=== PATIENT | male | born 1970 | race Caucasian/White ===

== ENCOUNTER 2017-08-07 11:13 | Inpatient (IN) | payer SELFPAY ==
[2017-08-07] VITALS (10 sets, daily range): BP systolic 121–167; BP diastolic 73–108; PULSE 103–127; RESP 14–21; TEMP 36.2–36.8; O2SAT 90–98; BMI 53.8
--- NOTE | 2017-08-07 11:49 | EKG12_ITS ---
Test Reason : SOB Blood Pressure : / mmHG Vent. Rate : 119 BPM Atrial Rate : 119 BPM P-R Int : 168 ms QRS Dur : 076 ms QT Int : 326 ms P-R-T Axes : 049 008 021 degrees QTc Int : 458 ms Sinus tachycardia Otherwise normal ECG Confirmed by LUCIA NGUYEN, CANDI ([id number]), greeting card editor MANAV CARMEN ([id number]) on 08/09/2017 2:00:22 PM Referred By: USMAN Confirmed By:CANDI MYERS MD
--- NOTE | 2017-08-07 11:50 | CT_ITS ---
STUDY: CT ABDOMEN AND PELVIS WITHOUT CONTRAST REASON FOR EXAM: Male, 46 years old. 2 week history of hematuria and blood clots. RADIATION DOSAGE (If Supplied By Facility): CTDIvol = ( 34.45 ) mGy, DLP = ( 1997.10 ) mGycm TECHNIQUE: Transaxial images were obtained from the dome of the diaphragm to the symphysis pubis without oral contrast, and without intravenous contrast. Sagittal and coronal images were reconstructed. Individualized dose optimization techniques were used for this CT. COMPARISON: None. FINDINGS: The visualized lung bases are unremarkable. The visualized portions of the heart are within normal limits. There is decreased attenuation of the liver consistent with steatosis. Normal gallbladder and extrahepatic biliary system. Normal spleen. Normal pancreas. Normal bilateral adrenal glands. Normal right kidney. Normal left kidney. There is a small hiatal hernia. Normal small intestine. There are scattered colonic diverticula consistent with diverticulosis. The appendix is visualized and appears normal. There is scattered atherosclerotic calcification of the abdominal aorta, without a demonstrated aneurysm. Normal inferior vena cava. Normal retroperitoneum. Normal urinary bladder. Normal abdominal wall. There are degenerative changes of the visualized lumbar spine. Status post right total hip preplacement. CT/Abdomen/Pelvis without Cont IMPRESSION: Fatty infiltration of the liver. Scattered sigmoid diverticula. Electronically Signed: Eliazar Funes MD at 12:50 EST Tel [phone], Service support ,
[2017-08-07 12:00] LABS: Bacteria 0 SEEN /hpf (None Seen); Mucous, Urine 0 SEEN /hpf (<or=2+)
[2017-08-07] MEDS: Ipratropium/Albuterol Sulfate 3 ML AMPUL.NEB INHALATION (12:03)
[2017-08-07 12:08] LABS: Color, Urine Red (Yellow); Glucose, Dipstick Normal (Normal); Ketone-Dipstick Negative (Negative); Leukocyte Esterase-Dipstick 500 /ul (Negative); Nitrite-Dipstick Negative (Negative); Occult Blood-Urine 250 /ul (Negative); Protein-Dipstick 100 mg/dl (Negative); Urine Bilirubin Dipstick Negative (Negative); Urine Clarity Sl. Cloudy (Clear); Urine Urobilinogen Normal (Normal); Urine pH 6.5 (5.0 - 8.0)
[2017-08-07 12:19] LABS: Absolute Lymphocyte Count 2.86 X10^3/ul (0.83-4.51); Absolute Neutrophil Count 6.2 X10^3/uL (2.0-7.7); Basophil# 0.04 X10^3/uL; Basophil% 0.4 % (0-1); Eosinophil# 0.08 X10^3/uL; Eosinophils% 0.8 % (0-5); Hematocrit 44.2 % (40-54); Hemoglobin 15.1 g/dl (13.0-16.5); Lymphocyte # 2.86 X10^3/ul (4.0); Lymphocyte % 28.5 % (19-41); Mean Corp Hgb Conc 34.2 g/gl (32-36); Mean Corpuscular Hgb 31.9 pg (27.0-32.0); Mean Corpuscular Volume 93.4 fL (80-94); Mean Platelet Vol. 9.4 fl (6.2-12.0); Monocyte# 0.83 X10^3/uL; Monocyte% 8.3 % (0-10); Neutrophil # 6.18 X10^3/uL (2.7-7.7); Neutrophil % 61.7 % (47-70); Platelet Count 292 K/mm3 (150-450); RBC Distribution Width CV 13.4 % (11.6-14.6); RBC Distribution Width SD 45.8 fl (35.1-43.9); Red Blood Count 4.73 M/mm3 (4.6-6.2)
[2017-08-07 12:21] LABS: Bedside Glucose 234 mg/dL (70-110)
[2017-08-07 12:22] LABS: Red Blood Cells-Urine 25-50 SEEN /hpf (0-5); Squamous Epithelial Cells - UA 0-5 SEEN /hpf (0-5); White Blood Cells 50-100 SEEN /hpf (0-5)
[2017-08-07 12:25] LABS: International Normalized Ratio 1.4; Prothrombin Time (Protime)PT. 16.6 SECONDS (11.7-14.9)
[2017-08-07 12:28] LABS: Partial Thromboplast Time 34.6 Seconds (24.1-36.2)
--- NOTE | 2017-08-07 12:28 | RAD_ITS ---
STUDY: X-RAY CHEST REASON FOR EXAM: Male, 46 years old. Dyspnea and shortness of breath. TECHNIQUE: PA and lateral views of the chest. COMPARISON: Comparison is made with prior examination dated January 30, 2016. FINDINGS: EKG electrodes are seen. Minimal increased markings are seen in the right middle lobe suggestive of a right middle lobe atelectasis. There is no demonstrated pleural abnormality. Normal size heart. Normal mediastinum and natalia. Normal visualized pulmonary arteries. Normal visualized aortic arch and descending thoracic aorta. Normal visualized thoracic spine. Normal visualized ribs, clavicles, and shoulders. There is no demonstrated abnormality of the visualized soft tissue structures of the upper abdomen. RAD/Chest PA and Lateral IMPRESSION: Minimal increased markings in the right middle lobe. This is suggestive of mild atelectasis. Electronically Signed: Eliazar Funes MD at 12:51 EST Tel [phone], Service support ,
[2017-08-07 12:31] LABS: POSITIVE COUNT NO; POSITIVE DIFFERENTIAL NO; POSITIVE MORPHOLOGY NO
[2017-08-07 12:35] LABS: AST(SGOT) 105 U/L (15-37); Alanine Aminotransfer ALT/SGPT 74 U/L (16-61); Alkaline Phosphatase 93 U/L (45-117); Anion Gap 10 (5-15); BUN 12 mg/dL (7-18); BUN/Creat Ratio 11.2 RATIO (10-20); Bilirubin, Direct 0.15 mg/dL (0.00-0.30); Calcium,Total 8.4 mg/dL (8.5-10.1); Chloride 104 mmol/L (98-107); Creatinine, Serum 1.07 mg/dL (0.70-1.30); EST Glomerular Filtration Rate 79 mL/min (>60); Est Glom Filt Rate - Afr Amer 95 mL/min (>60); Globulin 5.1 g/dL (2.2-4.2); Glucose 220 mg/dL (74-106); Potassium 3.5 mmol/L (3.5-5.1); Protein, Total 8.1 g/dL (6.4-8.2); Sodium Level 137 mmol/L (136-145)
[2017-08-07 12:49] LABS: Hemoglobin A1c 8.4 % (4.2-6.3)
[2017-08-07 12:58] LABS: BNP,B-Type NATRIURETIC PEPTIDE 8.1 pg/mL (0-100)
--- NOTE | 2017-08-07 13:34 | ED.DCSUM_ITS ---
- ER Visit Summary Date of Service: 08/07/17 Chief Complaint: Hematuria and shortness of breath History of Present Illness: The patient is a [address] Barkley in [place] and Dr. Astorga. He reports that he is on Xarelto for PE. States that approximately 2 weeks ago he began having hematuria and passing clots. Reports that he is emptying his bladder well most of the time. He feels as though his bladder is emptying well today. Patient reports is been short of breath for approximately 2 months. Is been gradually increasing. He has been wheezing. He does not use an inhaler. States is worse when he exerts himself. He states that he is short of breath at night until he puts his CPAP on. States that he has had a cough productive yellow sputum for months. There is been no blood in his sputum. He had subjective fever. No chills. He has had sweats. He complains of chest pain with coughing only. He denies any exertional chest pain. Patient complains of subjective fever. A mild sore throat. He has bilateral ankle swelling that he reports is chronic and actually slightly improved from usual. States that he has not been diagnosed with diabetes, but his blood sugars been 221-371 is checked at 5 times over the past 4 days. Physical Examination: Vitals: 98.2, 124/82, 123, 20, 90% on room air which is hypoxic. General: Well-nourished and well-developed. Head: Normocephalic atraumatic. Neck: Supple, no lymphadenopathy. No JVD. Nontender. Cardiovascular: Tachycardic regular rhythm with a 2 out of 6 systolic murmur. Respiratory: No respiratory distress. Mild wheezing bilaterally with greatly decreased air movement. Abdominal: Soft, nontender, nondistended, normal bowel sounds. No guarding, rebound, or peritoneal signs. Back: Nontender. Extremities: Nontender, 2+ pitting edema of his lower extremities bilaterally. This is symmetric. Skin: Normal color, no rash. Neurologic: Alert and oriented ?3. Cranial nerves II through XII are intact. Normal strength and sensation. Psych: Normal affect. Test Results: Chest x-ray shows atelectasis and no infiltrate. CT flank shows normal kidneys, normal bladder, normal appendix. EKG is sinus tach at [address] changes. CBC is normal. Chem-7 is more for glucose of 220 and calcium of 8.4. LFTs marked for an albumin 3.0, globulin 5.1, ALT of 74, AST of 105. INR is 1.4. PTT is 34.6. UA is remarkable for 50-100 white blood cells and 25-50 red blood cells. This was sent for culture. Troponin is negative. PT SALES OPERATIONS ANALYST is 8.1. Hemoglobin A1c is 8.4. Emergency Department Course and Treatment: Patient was treated with albuterol Atrovent aerosols. He does feel improved. He would like to go home. He is ambulated in the [place] and his pulse ox drops to 83%. I offered to get him oxygen for at home and he states that he does not want this. He is given Levaquin p.o. He refused steroids. Did have a prolonged discussion with him about the fact that his blood sugar has been approximately 180 on average over the course the past 3 months and he certainly does have diabetes mellitus. Treatment Plan: Patient was discussed with Dr. wells. He will be admitted to the hospital for further evaluation and treatment. Disposition: Admitted in improved condition. Impression: 1. COPD exacerbation. 2. Hypoxia. 3. UTI. 4. Hematuria. 5. Coagulopathy on Xarelto. 6. Type 2 diabetes mellitus, new diagnosis. This note was generated with [employer] dictation software. It may contain incorrect words, spelling, and punctuation that were not noted in review of the chart prior to signing ED Disposition - Plan for ED Patient: Disposition: Acute Care Hospital [facility] Chief Complaint: Shortness of Breath
[2017-08-07] MEDS: levoFLOXacin 750 MG Tablet PO (13:46)
[2017-08-07] MEDS: Albuterol 2.5 MG/3 ML VIAL.NEB. INHALATION (14:11)
--- NOTE | 2017-08-07 14:22 | HP.PCM_ITS ---
Problem List (1) DVT (deep venous thrombosis) Status: Chronic Comment: RLE (2) Dyspnea Status: Chronic (3) Premature ventricular contraction Status: Chronic (4) Pulmonary embolism Status: Chronic (5) Tachycardia Status: Chronic (6) Tricuspid regurgitation Status: Chronic Qualifiers: Cardiac valve disease etiology: nonrheumatic Qualified Code(s): I36.1 - Nonrheumatic tricuspid (valve) insufficiency (7) Degeneration of lumbosacral intervertebral disc Status: Chronic (8) GERD Status: Chronic (9) Hypertension Status: Chronic (10) Left ventricular hypertrophy Status: Chronic (11) Lumbosacral radiculopathy Status: Chronic (12) Lumbosacral spondylosis Status: Chronic (13) Morbid obesity Status: Chronic (14) KHALIF (obstructive sleep apnea) Status: Chronic (15) Obesity Status: Chronic (16) Pulmonary HTN Status: Chronic (17) Restrictive lung disease Status: Chronic (18) Tear of medial meniscus of left knee Status: Chronic (19) Tobacco dependence in remission Status: Chronic (20) VTE (venous thromboembolism) Status: Chronic (21) Hematuria Status: Acute (22) UTI (urinary tract infection) Status: Acute (23) Hypoxia Status: Acute (24) History of appendectomy Status: Resolved (25) History of hip replacement Status: Resolved (26) History of knee surgery Status: Resolved (27) lt foot reconstruction Status: Resolved History of Present Illness Date of Admission: 08/07/17 Chief Complaint: Blood in the urine The patient is a 46 year old M past medical history significant for VTE or systemic anticoagulation with Xarelto who presented with hematuria. Patient symptoms started a couple of days prior to coming in. On the morning of his presentation he did notice passing clots as big as this thumb.. Patient had also noticed pain in both flanks couple of weeks prior to coming in. In the ED his assessment was consistent with acute cystitis plan was for patient to be discharged on antibiotics however he was found to be hypoxic with ambulation. Subsequently underwent CTA of the chest which is negative for PE. Decision was made to admit patient for inpatient management. He was also found to have hyperglycemia on admission patient however denied being diabetic Past Medical History Past Medical History (Chronic Problems): Chronic Problems (Last Updated 05/29/17 @ 11:20 by Deepthi Spain) Premature ventricular contraction (Chronic) Tachycardia (Chronic) Dyspnea (Chronic) KHALIF (obstructive sleep apnea) (Chronic) Tobacco dependence in remission (Chronic) Restrictive lung disease (Chronic) Pulmonary HTN (Chronic) Hypertension (Chronic) Obesity (Chronic) GERD (Chronic) VTE (venous thromboembolism) (Chronic) Morbid obesity (Chronic) Pulmonary embolism (Chronic) DVT (deep venous thrombosis) (Chronic) RLE Tear of medial meniscus of left knee (Chronic) Left ventricular hypertrophy (Chronic) Tricuspid regurgitation (Chronic) Lumbosacral spondylosis (Chronic) Degeneration of lumbosacral intervertebral disc (Chronic) Lumbosacral radiculopathy (Chronic) Allergies quinine Allergy (Verified 08/07/17 11:17) Hives Home Medications: Ambulatory Orders Medication Instructions Recorded Albuterol Inhaler [Ventolin Hfa] 1 - 2 puff INHALATION Q4H PRN PRN 08/07/17 #1 inhaler Atenolol [Tenormin (Beta Dylan)] 100 mg PO DAILY 08/07/17 Cyclobenzaprine [Flexeril] 10 mg PO TID PRN 08/07/17 Furosemide [Lasix] 20 mg PO DAILY 08/07/17 Gabapentin [Neurontin] 600 mg PO TIDCM 08/07/17 Levofloxacin [Levaquin] 750 mg PO DAILY #7 tablet 08/07/17 Lisinopril/Hydrochlorothiazide 1 tablet PO DAILY 08/07/17 [Zestoretic 03/23.5 Tablet] Lorazepam [Ativan] 1 mg PO DAILY 08/07/17 Omeprazole [Prilosec] 20 mg PO BID 08/07/17 Potassium 99 mg PO DAILY 08/07/17 Rivaroxaban [Xarelto] 20 mg PO DAILY 08/07/17 Sertraline HCl [Zoloft] 50 mg PO DAILY 08/07/17 TraMADol [Ultram (G)] 50 mg PO Q4H PRN PRN 08/07/17 Zolpidem Tartrate [Ambien] 10 mg PO QHS PRN 08/07/17 Surgical History: appendectomy, total knee arthroplasty, - - Appendectomy, chest surgery for removal of organized clot under rib cage, heart catheterization Psychiatric History: No pertinent psych hx Smoking Status: Current every day smoker - *Family History Maternal History Items: Heart Disease Paternal History Items: Heart Disease Review of Systems Constitutional: Reports: Fatigue HEENT: Denies: Head Aches, Sinus Congestion, Sinus Drainage Cardiovascular: Reports: Palpitations. Denies: Chest Pain, Orthopnea, Paroxysmal Noc. Dyspnea Respiratory: Reports: Shortness of Breath, Shortness of breath at rest Gastrointestinal: Denies: Abdominal Pain, Hematemesis, Hematochezia, Nausea, Melena, Vomiting Genitourinary: Reports: Hematuria Musculoskeletal: Denies: Joint Pain, Joint Tenderness Skin: Denies: Rash Neurological: Denies: Focal weakness, Numbness, Tingling Psychiatric: Denies: Homicidal Ideations, Suicidal Ideations Hematologic/ Lymphatic: Denies: Easy Bruising, Easy Bleeding VTE Information - Inpt Only VTE Present on Admission: No VTE Mechan Device Prophylaxis: Knee High ELVIN Hose VTE Pharm Prophylaxis ordered?: Yes Patient Problems: Active and Suspected Problems (Last Updated 05/29/17 @ 11:20 by Deepthi [place] ) Hematuria (Acute) UTI (urinary tract infection) (Acute) Hypoxia (Acute) Objective: GENERAL: Patient appears anxious HEENT: Clear conjunctiva, moist oral mucosa NECK; supple, normal thyroid, CHEST: Diminished to auscultation bilaterally, HEART: Regular S1 S2, tachycardiac ABDOMEN: soft, non-tender, normoactive bowel sounds, RECTAL: deferred EXTREMITIES: No edema, no clubbing, no cyanosis. GREENS PLANTER: Awake, no lateralizing signs. SKIN: No rash - Physical Exam Vital Signs Temp Pulse Resp BP Pulse Ox 98.2 F 117 H 16 124/82 H 93 08/07/17 11:14 08/07/17 14:12 08/07/17 14:12 08/07/17 13:00 08/07/17 14:12 Oxygen Delivery Method Room Air Weight: 175.1 kg Body Mass Index (BMI) 53.8 Finger Stick Blood Glucose 234 Laboratory Tests Past 24 Hrs 08/07/17 08/07/17 08/07/17 11:55 12:05 12:05 WBC 10.0 RBC 4.73 Hgb 15.1 Hct 44.2 MCV 93.4 MCH 31.9 MCHC 34.2 RDW 13.4 RDW Differential 45.8 H Plt Count 292 MPV 9.4 Immature Gran % (Auto) 0.300 Neut % (Auto) 61.7 Lymph % (Auto) 28.5 Faulkner % (Auto) 8.3 Eos % (Auto) 0.8 Baso % (Auto) 0.4 Absolute Neuts (auto) 6.2 Absolute Lymphs (auto) 2.86 Total Counted Not Reportable PT 16.6 H INR 1.4 APTT 34.6 Sodium Potassium Chloride Carbon Dioxide Anion Gap BUN Creatinine Estim Creat Clear Calc Est GFR (MDRD) Af Amer Est GFR (MDRD) Non-Af BUN/Creatinine Ratio Glucose Hemoglobin A1c Calcium Total Bilirubin Direct Bilirubin AST ALT Alkaline Phosphatase Troponin I B-Natriuretic Peptide Total Protein Albumin Globulin Urine Color Red Urine Clarity Sl. Cloudy Urine pH 6.5 Ur Specific [place] 1.010 Urine Protein 100 H Urine Glucose (UA) Normal Urine Ketones Negative Urine Occult Blood 250 H Urine Nitrite Negative Urine Bilirubin Negative Urine Urobilinogen Normal Ur Leukocyte Esterase 500 H Urine RBC 25-50 SEEN Urine WBC 50-100 SEEN Ur Squamous Epith Cells 0-5 SEEN Urine Bacteria 0 SEEN Urine Mucus 0 SEEN 08/07/17 08/07/17 08/07/17 12:05 12:05 12:05 WBC RBC Hgb Hct MCV MCH MCHC RDW RDW Differential Plt Count MPV Immature Gran % (Auto) Neut % (Auto) Lymph % (Auto) Faulkner % (Auto) Eos % (Auto) Baso % (Auto) Absolute Neuts (auto) Absolute Lymphs (auto) Total Counted PT INR APTT Sodium 137 Potassium 3.5 Chloride 104 Carbon Dioxide 23.0 Anion Gap 10 BUN 12 Creatinine 1.07 Estim Creat Clear Calc 90.90 Est GFR (MDRD) Af Amer 95 Est GFR (MDRD) Non-Af 79 BUN/Creatinine Ratio 11.2 Glucose 220 H Hemoglobin A1c 8.4 H Calcium 8.4 L Total Bilirubin 0.70 Direct Bilirubin 0.15 AST 105 H ALT 74 H Alkaline Phosphatase 93 Troponin I < 0.02 B-Natriuretic Peptide 8.1 Total Protein 8.1 Albumin 3.0 L Globulin 5.1 H Urine Color Urine Clarity Urine pH Ur Specific [place] Urine Protein Urine Glucose (UA) Urine Ketones Urine Occult Blood Urine Nitrite Urine Bilirubin Urine Urobilinogen Ur Leukocyte Esterase Urine RBC Urine WBC Ur Squamous Epith Cells Urine Bacteria Urine Mucus POC Glucose 08/07/17 12:14 POC Glucose 234 H Assessment/Plan Active and Suspected Problems (Last Updated 05/29/17 @ 11:20 by Deepthi Spain ) Hematuria (Acute) UTI (urinary tract infection) (Acute) Hypoxia (Acute) Patient is a 46-year-old gentleman with multiple comorbidities presented with hematuria and shortness of breath 1. Acute infectious hemorrhagic cystitis. Patient presented with hematuria ( on Xarelto for history of DVT and PEs). Started on Rocephin after cultures have been sent 2. Acute hypoxia multi-factorial including patient's underlying obstructive sleep apnea, pulmonary hypertension obesity hypoventilation syndrome. Admitted to regular nursing floor placed on bronchodilator treatment as well as low-dose steroid in addition to supplemental oxygen 3. History of previous DVT and PE on systemic anticoagulation with Xarelto 4. Morbid obesity with BMI of 53.8 weight loss advised 5. Hyperglycemia do suspect patient having underlying new onset diabetes mellitus type 2. Did request for hemoglobin A1c please and Accu-Cheks before meals and at bedtime with sliding scale coverage 6. Hypertension-blood pressure controlled, home medications continued with dose adjustment as needed 7. Obstructive sleep apnea 8. Obesity hypoventilation syndrome 9. Pulmonary hypertension 10. DVT prophylaxis on Xarelto Code Visit Inpatient E&M: 77718 Subs Hosp L3
[2017-08-07] MEDS: 0.9% Normal Saline 1,000 ML 75 ML IV (18:13)
[2017-08-07] MEDS: Gabapentin 600 MG Tablet PO (18:19)
[2017-08-07 18:26] LABS: Bedside Glucose 235 mg/dL (70-110)
[2017-08-07] MEDS: Ceftriaxone 1 GM/50 ML BAG IV (18:26)
[2017-08-07] MEDS: Ondansetron 4 MG/2 ML Vial IV (19:16)
[2017-08-07 20:56] LABS: Bedside Glucose 309 mg/dL (70-110)
[2017-08-07] MEDS: Pantoprazole Sodium 20 MG Tablet PO (21:02)
[2017-08-07] MEDS: guaiFENesin 1,200 MG Tablet 1200 MG PO (21:03)
[2017-08-07] MEDS: LORazepam 1 MG Tablet PO (23:18)
--- NOTE | 2017-08-07 23:19 | NURSING ---
pt encourage to not eat so much it will affect his blood sugar. pt ate a footlong sub, yogart and 3 pkg of oswaldo crackers. pt said when i cant somke i eat.
[2017-08-08] VITALS (10 sets, daily range): BP systolic 129–147; BP diastolic 66–82; PULSE 77–118; RESP 12–20; TEMP 36.3–36.5; O2SAT 91–97
[2017-08-08] MEDS: Ipratropium/Albuterol Sulfate 3 ML AMPUL.NEB INHALATION ×5 (03:20→19:49)
[2017-08-08 06:02] LABS: Absolute Lymphocyte Count 1.52 X10^3/ul (0.83-4.51); Absolute Neutrophil Count 9.7 X10^3/uL (2.0-7.7); Basophil# 0.01 X10^3/uL; Basophil% 0.1 % (0-1); Hematocrit 44.3 % (40-54); Hemoglobin 14.8 g/dl (13.0-16.5); Lymphocyte # 1.52 X10^3/ul (4.0); Lymphocyte % 12.9 % (19-41); Mean Corp Hgb Conc 33.4 g/gl (32-36); Mean Corpuscular Hgb 31.8 pg (27.0-32.0); Mean Corpuscular Volume 95.1 fL (80-94); Mean Platelet Vol. 9.9 fl (6.2-12.0); Monocyte# 0.45 X10^3/uL; Monocyte% 3.8 % (0-10); Neutrophil # 9.74 X10^3/uL (2.7-7.7); Neutrophil % 82.9 % (47-70); Platelet Count 253 K/mm3 (150-450); RBC Distribution Width CV 13.5 % (11.6-14.6); RBC Distribution Width SD 46.6 fl (35.1-43.9); Red Blood Count 4.66 M/mm3 (4.6-6.2); White Blood Count 11.8 K/mm3 (4.4-11.0)
[2017-08-08 06:23] LABS: POSITIVE COUNT NO; POSITIVE DIFFERENTIAL NO; POSITIVE MORPHOLOGY NO
[2017-08-08 06:29] LABS: Anion Gap 10 (5-15); BUN 14 mg/dL (7-18); BUN/Creat Ratio 12.7 RATIO (10-20); Calcium,Total 8.6 mg/dL (8.5-10.1); Chloride 101 mmol/L (98-107); EST Glomerular Filtration Rate 76 mL/min (>60); Est Glom Filt Rate - Afr Amer 92 mL/min (>60); Estimated Creatinine Clearance 88.42 ml/min; Glucose 381 mg/dL (74-106); Potassium 4.1 mmol/L (3.5-5.1); Sodium Level 132 mmol/L (136-145)
[2017-08-08 06:50] LABS: Bedside Glucose 360 mg/dL (70-110)
[2017-08-08] MEDS: 0.9% Normal Saline 1,000 ML 75 ML IV (07:59)
[2017-08-08] MEDS: Gabapentin 600 MG Tablet PO ×3 (08:00→16:35)
[2017-08-08] MEDS: HYDROCHLOROTHIAZIDE 12.5 MG CAPSULE PO (08:00)
[2017-08-08] MEDS: Furosemide 20 MG Tablet PO (08:01)
[2017-08-08] MEDS: guaiFENesin 1,200 MG Tablet 1200 MG PO ×2 (08:01→21:21)
[2017-08-08] MEDS: Pantoprazole Sodium 20 MG Tablet PO ×2 (08:01→21:21)
[2017-08-08] MEDS: Atenolol 100 MG Tablet PO (08:01)
[2017-08-08] MEDS: Rivaroxaban 20 MG Tablet PO (08:01)
[2017-08-08] MEDS: Sertraline 50 MG Tablet PO (08:02)
[2017-08-08] MEDS: Lisinopril 10 MG Tablet PO (08:02)
--- NOTE | 2017-08-08 08:13 | PCM.PN.HOSP ---
Patient Problems: Active and Suspected Problems (Last Updated 05/29/17 @ 11:20 by Deepthi [place]) Hematuria (Acute) UTI (urinary tract infection) (Acute) Hypoxia (Acute) Subjective: Patient seen; currently off oxygen. His blood glucose level trending up to over 380. Hemoglobin A1c came 8.1 consistent with new onset diabetes mellitus type 2. Did request Dietitian well as diabetic education. Urine culture still pending Objective: GENERAL: Patient appears anxious HEENT: Clear conjunctiva, moist oral mucosa NECK; supple, normal thyroid, CHEST: Diminished to auscultation bilaterally, HEART: Regular S1 S2, tachycardiac ABDOMEN: soft, non-tender, normoactive bowel sounds, RECTAL: deferred EXTREMITIES: No edema, no clubbing, no cyanosis. PR[employer]ED [employer]ARD PANELS DEBURRER: Awake, no lateralizing signs. SKIN: No rash Vitals/I&O's: Vital Signs Temp Pulse Resp BP Pulse Ox 97.5 F L 118 H 20 H 129/66 H 95 08/08/17 02:30 08/08/17 03:20 08/08/17 03:20 08/08/17 02:30 08/08/17 05:00 Oxygen Flow Rate 2 Oxygen Delivery Method Room Air Weight: 175.1 kg Body Mass Index (BMI) 53.8 Intake and Output for Last 24 Hours 08/06/17 08/07/17 08/08/17 23:59 23:59 23:59 Intake Total 1637 / 1637 4200 / 4200 Output Total 300 / 300 Balance 1637 / 1637 3900 / 3900 Microbiology Past 72 Hours 08/07/17 16:41 Mucosa - Nose Influenza Types A,B Direct FA (LALO) - Final Laboratory Results 08/07/17 18:18: POC Glucose 235 H 08/07/17 20:52: POC Glucose 309 H 08/08/17 05:40: Sodium 132 L, Potassium 4.1, Chloride 101, Carbon Dioxide 21.0, Anion Gap 10, BUN 14, Creatinine 1.10, Estim Creat Clear Calc 88.42, Est GFR (MDRD) Af Amer 92, Est GFR (MDRD) Non-Af 76, BUN/Creatinine Ratio 12.7, Glucose 381 H, Calcium 8.6 08/08/17 05:40: WBC 11.8 H, RBC 4.66, Hgb 14.8, Hct 44.3, MCV 95.1 H, MCH 31.8, MCHC 33.4, RDW 13.5, RDW Differential 46.6 H, Plt Count 253, MPV 9.9, Immature Gran % (Auto) 0.300, Neut % (Auto) 82.9 H, Lymph % (Auto) 12.9 L, Powell % (Auto) 3.8, Eos % (Auto) 0.0, Baso % (Auto) 0.1, Absolute Neuts (auto) 9.7 H, Absolute Lymphs (auto) 1.52, Total Counted Not Reportable 08/08/17 06:38: POC Glucose 360 H Current Medications Acetaminophen (Tylenol) 650 mg PO Q6H PRN PRN PRN Reason: Mild Pain (scale 0-3)/T>100.7 Al Hydroxide/Mg Hydroxide (Mylanta Ii) 30 ml PO Q6H PRN PRN PRN Reason: Gastric Burning Albuterol Sulfate (Ventolin Aerosols) 2.5 mg INHALATION Q2H PRN PRN PRN Reason: SHORTNESS OF BREATH Albuterol/Ipratropium (Duoneb) 3 ml INHALATION Q4H.RT [facility] Last Admin: 08/08/17 07:20 Dose: 3 ml Atenolol (Tenormin (Beta Dylan)) 100 mg PO DAILY [facility] Last Admin: 08/08/17 08:01 Dose: 100 mg Bisacodyl (Dulcolax) 10 mg PO DAILY PRN PRN PRN Reason: Constipation Cyclobenzaprine HCl (Flexeril) 10 mg PO TID PRN PRN Reason: PAIN Dextrose (D50w Syringe) 0 gm IV X1 PRN; Protocol PRN Reason: Hypoglycemia Furosemide (Lasix) 20 mg PO DAILY [facility] Last Admin: 08/08/17 08:01 Dose: 20 mg Gabapentin (Neurontin) 600 mg PO TIDCM [facility] Last Admin: 08/08/17 08:00 Dose: 600 mg Glucagon () 1 mg IM .X1 PRN PRN Reason: Hypoglycemia Guaifenesin (Mucinex) 1,200 mg PO BID [facility] Last Admin: 08/08/17 08:01 Dose: 1,200 mg Hydrochlorothiazide (Hydrochlorothiazide) 12.5 mg PO DAILY [facility] Last Admin: 08/08/17 08:00 Dose: 12.5 mg Sodium Chloride () 1,000 mls @ 75 mls/hr IV .[id number] [facility] Last Admin: 08/08/17 07:59 Dose: 75 mls/hr Ceftriaxone Sodium (Rocephin) 1 gm in 50 mls @ 100 mls/hr IV Q24 [facility] Last Admin: 08/07/17 18:26 Dose: 100 mls/hr Azithromycin 500 mg/ Dextrose 255 mls @ 250 mls/hr IV Q24 [facility] Stop: 08/09/17 11:02 Last Admin: 08/07/17 18:59 Dose: 250 mls/hr Insulin Aspart (Novolog Flexpen ([facility])) 0 units SC ACHS [facility] PRN Reason: Protocol Last Admin: 08/08/17 06:40 Dose: 8 u Insulin Detemir (Levemir ([facility])) 10 units SC BID [facility] Lisinopril (Zestril) 10 mg PO DAILY [facility] Last Admin: 08/08/17 08:02 Dose: 10 mg Lorazepam (Ativan) 1 mg PO DAILY@2200 [facility] Last Admin: 08/07/17 23:18 Dose: 1 mg Magnesium Hydroxide (Milk Of Magnesia) 30 ml PO DAILY PRN PRN PRN Reason: Constipation Methylprednisolone (Solu-Medrol) 40 mg IV Q8 [facility] Last Admin: 08/08/17 06:39 Dose: 40 mg Morphine Sulfate (Morphine) 2 - 4 mg IV Q3H PRN PRN PRN Reason: Severe Pain (pain scale 6-10) Ondansetron HCl (Zofran) 4 mg IV Q8H PRN PRN PRN Reason: Nausea Last Admin: 08/07/17 19:16 Dose: 4 mg Oxycodone HCl (Oxyir) 5 mg PO Q4H PRN PRN PRN Reason: Moderate Pain (pain scale 4-5) Pantoprazole Sodium (Protonix) 20 mg PO BID [facility] Last Admin: 08/08/17 08:01 Dose: 20 mg Rivaroxaban (Xarelto) 20 mg PO DAILY [facility] Last Admin: 08/08/17 08:01 Dose: 20 mg Sertraline HCl (Zoloft) 50 mg PO DAILY [facility] Last Admin: 08/08/17 08:02 Dose: 50 mg Sodium Chloride () 5 - 30 ml IV UD PRN PRN Reason: SALINE FLUSH Tramadol HCl (Ultram (G)) 50 mg PO Q4H PRN PRN PRN Reason: PAIN Zolpidem Tartrate (Ambien (Generic)) 5 mg PO QHS PRN PRN Reason: SLEEP Assessment/Plan Active and Suspected Problems (Last Updated 05/29/17 @ 11:20 by Deepthi [place]) Hematuria (Acute) UTI (urinary tract infection) (Acute) Hypoxia (Acute) Patient is a 46-year-old gentleman with multiple comorbidities presented with hematuria and shortness of breath 1. Acute infectious hemorrhagic cystitis. Patient presented with hematuria (on Xarelto for history of DVT and PEs). Started on Rocephin after cultures have been sent 2. Acute hypoxia multi-factorial including patient's underlying obstructive sleep apnea, pulmonary hypertension obesity hypoventilation syndrome. Admitted to regular nursing floor placed on bronchodilator treatment as well as low-dose steroid in addition to supplemental oxygen 3. History of previous DVT and PE on systemic anticoagulation with Xarelto 4. Morbid obesity with BMI of 53.8 weight loss advised 5. New onset diabetes mellitus type 2. Patient presented with hyperglycemia hemoglobin A1c confirmed the new diagnosis of new onset diabetes mellitus type 2. Subsequently placed on long-acting insulin and Accu-Cheks before meals and at bedtime with sliding scale coverage 6. Hypertension-blood pressure controlled, home medications continued with dose adjustment as needed 7. Obstructive sleep apnea 8. Obesity hypoventilation syndrome 9. Pulmonary hypertension 10. DVT prophylaxis on Xarelto Code Visit Inpatient E&M: 18903 [facility] Hosp L3
--- NOTE | 2017-08-08 08:17 | PN_ITS ---
Patient Problems: Active and Suspected Problems (Last Updated 05/29/17 @ 11:20 by Deepthi Spain ) Hematuria (Acute) UTI (urinary tract infection) (Acute) Hypoxia (Acute) Subjective: Patient seen; currently off oxygen. His blood glucose level trending up to over 380. Hemoglobin A1c came 8.1 consistent with new onset diabetes mellitus type 2. Did request Dietitian well as diabetic education. Urine culture still pending Objective: GENERAL: Patient appears anxious HEENT: Clear conjunctiva, moist oral mucosa NECK; supple, normal thyroid, CHEST: Diminished to auscultation bilaterally, HEART: Regular S1 S2, tachycardiac ABDOMEN: soft, non-tender, normoactive bowel sounds, RECTAL: deferred EXTREMITIES: No edema, no clubbing, no cyanosis. BEEF GRADER: Awake, no lateralizing signs. SKIN: No rash Vitals/I&O's: Vital Signs Temp Pulse Resp BP Pulse Ox 97.5 F L 118 H 20 H 129/66 H 95 08/08/17 02:30 08/08/17 03:20 08/08/17 03:20 08/08/17 02:30 08/08/17 05:00 Oxygen Flow Rate 2 Oxygen Delivery Method Room Air Weight: 175.1 kg Body Mass Index (BMI) 53.8 Intake and Output for Last 24 Hours 08/06/17 08/07/17 08/08/17 23:59 23:59 23:59 Intake Total 1637 / 1637 4200 / 4200 Output Total 300 / 300 Balance 1637 / 1637 3900 / 3900 Microbiology Past 72 Hours 08/07/17 16:41 Mucosa - Nose Influenza Types A,B Direct FA (LALO) - Final Laboratory Results 08/07/17 18:18: POC Glucose 235 H 08/07/17 20:52: POC Glucose 309 H 08/08/17 05:40: Sodium 132 L, Potassium 4.1, Chloride 101, Carbon Dioxide 21.0, Anion Gap 10, BUN 14, Creatinine 1.10, Estim Creat Clear Calc 88.42, Est GFR ( MDRD) Af Amer 92, Est GFR (MDRD) Non-Af 76, BUN/Creatinine Ratio 12.7, Glucose 381 H, Calcium 8.6 08/08/17 05:40: WBC 11.8 H, RBC 4.66, Hgb 14.8, Hct 44.3, MCV 95.1 H, MCH 31.8, MCHC 33.4, RDW 13.5, RDW Differential 46.6 H, Plt Count 253, MPV 9.9, Immature Gran % (Auto) 0.300, Neut % (Auto) 82.9 H, Lymph % (Auto) 12.9 L, [place] % (Auto) 3.8, Eos % (Auto) 0.0, Baso % (Auto) 0.1, Absolute Neuts (auto) 9.7 H, Absolute Lymphs (auto) 1.52, Total Counted Not Reportable 08/08/17 06:38: POC Glucose 360 H Current Medications Acetaminophen (Tylenol) 650 mg PO Q6H PRN PRN PRN Reason: Mild Pain (scale 0-3)/T>100.7 Al Hydroxide/Mg Hydroxide (Mylanta Ii) 30 ml PO Q6H PRN PRN PRN Reason: Gastric Burning Albuterol Sulfate (Ventolin Aerosols) 2.5 mg INHALATION Q2H PRN PRN PRN Reason: SHORTNESS OF BREATH Albuterol/Ipratropium (Duoneb) 3 ml INHALATION Q4H.RT [facility] Last Admin: 08/08/17 07:20 Dose: 3 ml Atenolol (Tenormin (Beta Dylan)) 100 mg PO DAILY [facility] Last Admin: 08/08/17 08:01 Dose: 100 mg Bisacodyl (Dulcolax) 10 mg PO DAILY PRN PRN PRN Reason: Constipation Cyclobenzaprine HCl (Flexeril) 10 mg PO TID PRN PRN Reason: PAIN Dextrose (D50w Syringe) 0 gm IV X1 PRN; Protocol PRN Reason: Hypoglycemia Furosemide (Lasix) 20 mg PO DAILY [facility] Last Admin: 08/08/17 08:01 Dose: 20 mg Gabapentin (Neurontin) 600 mg PO TIDCM [facility] Last Admin: 08/08/17 08:00 Dose: 600 mg Glucagon () 1 mg IM .X1 PRN PRN Reason: Hypoglycemia Guaifenesin (Mucinex) 1,200 mg PO BID [facility] Last Admin: 08/08/17 08:01 Dose: 1,200 mg Hydrochlorothiazide (Hydrochlorothiazide) 12.5 mg PO DAILY [facility] Last Admin: 08/08/17 08:00 Dose: 12.5 mg Sodium Chloride () 1,000 mls @ 75 mls/hr IV .[id number] [facility] Last Admin: 08/08/17 07:59 Dose: 75 mls/hr Ceftriaxone Sodium (Rocephin) 1 gm in 50 mls @ 100 mls/hr IV Q24 [facility] Last Admin: 08/07/17 18:26 Dose: 100 mls/hr Azithromycin 500 mg/ Dextrose 255 mls @ 250 mls/hr IV Q24 [facility] Stop: 08/09/17 11:02 Last Admin: 08/07/17 18:59 Dose: 250 mls/hr Insulin Aspart (Novolog Flexpen ([facility])) 0 units SC ACHS [facility] PRN Reason: Protocol Last Admin: 08/08/17 06:40 Dose: 8 u Insulin Detemir (Levemir ([facility])) 10 units SC BID [facility] Lisinopril (Zestril) 10 mg PO DAILY [facility] Last Admin: 08/08/17 08:02 Dose: 10 mg Lorazepam (Ativan) 1 mg PO DAILY@2200 [facility] Last Admin: 08/07/17 23:18 Dose: 1 mg Magnesium Hydroxide (Milk Of Magnesia) 30 ml PO DAILY PRN PRN PRN Reason: Constipation Methylprednisolone (Solu-Medrol) 40 mg IV Q8 [facility] Last Admin: 08/08/17 06:39 Dose: 40 mg Morphine Sulfate (Morphine) 2 - 4 mg IV Q3H PRN PRN PRN Reason: Severe Pain (pain scale 6-10) Ondansetron HCl (Zofran) 4 mg IV Q8H PRN PRN PRN Reason: Nausea Last Admin: 08/07/17 19:16 Dose: 4 mg Oxycodone HCl (Oxyir) 5 mg PO Q4H PRN PRN PRN Reason: Moderate Pain (pain scale 4-5) Pantoprazole Sodium (Protonix) 20 mg PO BID [facility] Last Admin: 08/08/17 08:01 Dose: 20 mg Rivaroxaban (Xarelto) 20 mg PO DAILY [facility] Last Admin: 08/08/17 08:01 Dose: 20 mg Sertraline HCl (Zoloft) 50 mg PO DAILY [facility] Last Admin: 08/08/17 08:02 Dose: 50 mg Sodium Chloride () 5 - 30 ml IV UD PRN PRN Reason: SALINE FLUSH Tramadol HCl (Ultram (G)) 50 mg PO Q4H PRN PRN PRN Reason: PAIN Zolpidem Tartrate (Ambien (Generic)) 5 mg PO QHS PRN PRN Reason: SLEEP Assessment/Plan Active and Suspected Problems (Last Updated 05/29/17 @ 11:20 by Deepthi Spain ) Hematuria (Acute) UTI (urinary tract infection) (Acute) Hypoxia (Acute) Patient is a 46-year-old gentleman with multiple comorbidities presented with hematuria and shortness of breath 1. Acute infectious hemorrhagic cystitis. Patient presented with hematuria ( on Xarelto for history of DVT and PEs). Started on Rocephin after cultures have been sent 2. Acute hypoxia multi-factorial including patient's underlying obstructive sleep apnea, pulmonary hypertension obesity hypoventilation syndrome. Admitted to regular nursing floor placed on bronchodilator treatment as well as low-dose steroid in addition to supplemental oxygen 3. History of previous DVT and PE on systemic anticoagulation with Xarelto 4. Morbid obesity with BMI of 53.8 weight loss advised 5. New onset diabetes mellitus type 2. Patient presented with hyperglycemia hemoglobin A1c confirmed the new diagnosis of new onset diabetes mellitus type 2. Subsequently placed on long-acting insulin and Accu-Cheks before meals and at bedtime with sliding scale coverage 6. Hypertension-blood pressure controlled, home medications continued with dose adjustment as needed 7. Obstructive sleep apnea 8. Obesity hypoventilation syndrome 9. Pulmonary hypertension 10. DVT prophylaxis on Xarelto Code Visit Inpatient E&M: 28946 [facility] Hosp L3
[2017-08-08] MEDS: Ceftriaxone 1 GM/50 ML BAG IV (09:36)
[2017-08-08 11:01] LABS: Bedside Glucose 493 mg/dL (70-110)
--- NOTE | 2017-08-08 11:14 | CASEMGMT ---
ASHLEY met with patient and his , introduced self and role at [facility]. Patient's just turned in a Medicaid application yesterday. They tried before when he was getting unemployment, but they were told they make too much. His unemployment just ran out so that is why she just re-applied. She said patient's insurance ran out in Feb so he has not been to see any of his doctors. She is on unemployment, but will be returning to work in September. She said they will still qualify for Medicaid because she does not make much. Patient takes Xarelto and [facility] have been supplying him with the medication. ASHLEY gave them information on prescription [facility]. ASHLEY also told them the hospital has a program where we can help once a year and depending on prescriptions we may be able to help. ASHLEY to follow for possible medication assistance at d/c. Anali PÉREZ
[2017-08-08] MEDS: Ondansetron 4 MG/2 ML Vial IV (11:48)
[2017-08-08 12:19] LABS: Glucose 494 mg/dL (74-106)
--- NOTE | 2017-08-08 12:27 | NURSING ---
Patient's BGT prior to lunch= 493. MARTY Sharpe notified Dr. Neil. Lab back up ordered per hospital policy for BGT> 450. Recheck as 494. Dr. Neil ordered x1 dose of 15 units Novolog stat, increased Levemir to 20 units BID, and added 5 units scheduled novolog with meals.
[2017-08-08 16:45] LABS: Bedside Glucose 403 mg/dL (70-110)
[2017-08-08 21:36] LABS: Bedside Glucose 323 mg/dL (70-110)
[2017-08-08] MEDS: LORazepam 1 MG Tablet PO (23:03)
[2017-08-09] VITALS (7 sets, daily range): BP systolic 123–138; BP diastolic 81–85; PULSE 64–96; RESP 16–20; TEMP 36.4–36.8; O2SAT 93–98
[2017-08-09] MEDS: Ipratropium/Albuterol Sulfate 3 ML AMPUL.NEB INHALATION ×3 (00:34→07:09)
[2017-08-09] MEDS: oxyCODONE 5 MG Tablet PO (00:53)
[2017-08-09 06:41] LABS: Bedside Glucose 258 mg/dL (70-110)
[2017-08-09 07:32] LABS: Anion Gap 9 (5-15); BUN 16 mg/dL (7-18); BUN/Creat Ratio 12.8 RATIO (10-20); Calcium,Total 8.6 mg/dL (8.5-10.1); Chloride 102 mmol/L (98-107); Creatinine, Serum 1.25 mg/dL (0.70-1.30); EST Glomerular Filtration Rate 66 mL/min (>60); Est Glom Filt Rate - Afr Amer 79 mL/min (>60); Estimated Creatinine Clearance 77.81 ml/min; Glucose 239 mg/dL (74-106); Potassium 3.8 mmol/L (3.5-5.1); Sodium Level 136 mmol/L (136-145)
[2017-08-09] MEDS: Gabapentin 600 MG Tablet PO ×2 (07:45→11:42)
--- NOTE | 2017-08-09 08:35 | PCM.DC ---
- Discharge Diagnoses Current Active Problems: Current Active and Chronic Problems (Last Updated 05/29/17 @ 11:20 by Deepthi Spain) Hematuria (Acute) UTI (urinary tract infection) (Acute) Hypoxia (Acute) You will use the following diet at home:: Calorie/Carbohydrate Controlled (specify 1200, 1400, etc) - 1800 Discharge Activity: Return to Normal Activity Instructions: ED Upper Resp Infec Abx Tx, ED UTI Cystitis Male Allergies/Adverse Reactions: Allergies quinine Allergy (Verified 08/07/17 11:17) Hives Medications to take at Discharge Albuterol Inhaler [Ventolin Hfa] 1 - 2 puff INHALATION Q4H PRN PRN #1 inhaler 08/07/17 Atenolol [Tenormin (beta tamar)] 50 mg PO BID 08/07/17 Cyclobenzaprine [Flexeril] 600 mg PO TID PRN 08/07/17 Furosemide [Lasix] 20 mg PO DAILY 08/07/17 Gabapentin [Neurontin] 600 mg PO TIDCM 08/07/17 Levofloxacin [Levaquin] 750 mg PO DAILY #7 tab 08/07/17 Lisinopril/Hydrochlorothiazide [Zestoretic 03/23.5 Tablet] 1 tablet PO DAILY 08/07/17 Lorazepam [Ativan] 1 mg PO DAILY 08/07/17 Omeprazole [Prilosec] 20 mg PO BID 08/07/17 Potassium 99 mg PO DAILY 08/07/17 Rivaroxaban [Xarelto] 20 mg PO DAILY 08/07/17 Sertraline HCl [Zoloft] 50 mg PO DAILY 08/07/17 Zolpidem Tartrate [Ambien] 10 mg PO QHS PRN 08/07/17 Guaifenesin [Mucinex] 1,200 mg PO BID #14 tab 08/09/17 Insulin Detemir [Levemir FlexPen] 20 units SC BID #60 insuln.pen 08/09/17 Metformin HCl [Glucophage] 1,000 mg PO BIDCM #120 tab 08/09/17 The following prescriptions were given: Albuterol Inhaler [Ventolin Hfa] 1 - 2 puff INHALATION Q4H PRN PRN #1 inhaler PRN Reason: Wheezing Guaifenesin [Mucinex] 1,200 mg PO BID #14 tab Insulin Detemir [Levemir FlexPen] 20 units SC BID #60 insuln.pen Levofloxacin [Levaquin] 750 mg PO DAILY #7 tab Metformin HCl [Glucophage] 1,000 mg PO BIDCM #120 tab Primary Care Physician: London Barkley MD [Primary Care Provider] - 1 Week Proposed Discharge Date: 08/09/17
--- NOTE | 2017-08-09 08:37 | PCM.DC.SUM ---
Discharge Date and Diagnosis - Problem List Patient Problems: Active and Suspected Problems (Last Updated 05/29/17 @ 11:20 by Deepthi Spain) DM type 2 (diabetes mellitus, type 2) (Acute) Hematuria (Acute) UTI (urinary tract infection) (Acute) Hypoxia (Acute) Date of Admission: 08/07/17 Date of Discharge: 08/09/17 - Primary Discharge Diagnosis Active and Suspected Problems (Last Updated 05/29/17 @ 11:20 by Deepthi Spain) DM type 2 (diabetes mellitus, type 2) (Acute) Hematuria (Acute) UTI (urinary tract infection) (Acute) Hypoxia (Acute) - Secondary Discharge Diagnosis Chronic Problems (Last Updated 05/29/17 @ 11:20 by Deepthi [place]) Premature ventricular contraction (Chronic) Tachycardia (Chronic) Dyspnea (Chronic) KHALIF (obstructive sleep apnea) (Chronic) Tobacco dependence in remission (Chronic) Restrictive lung disease (Chronic) Pulmonary HTN (Chronic) Hypertension (Chronic) Obesity (Chronic) GERD (Chronic) VTE (venous thromboembolism) (Chronic) Morbid obesity (Chronic) Pulmonary embolism (Chronic) DVT (deep venous thrombosis) (Chronic) RLE Tear of medial meniscus of left knee (Chronic) Left ventricular hypertrophy (Chronic) Tricuspid regurgitation (Chronic) Lumbosacral spondylosis (Chronic) Degeneration of lumbosacral intervertebral disc (Chronic) Lumbosacral radiculopathy (Chronic) Hospital Course and Treatment Imaging Results: Clinical Impression(s) from Imaging Studies Abdomen/Pelvis CT 08/07/17 11:50 IMPRESSION: Fatty infiltration of the liver. Scattered sigmoid diverticula. Electronically Signed: Eliazar Funes MD at 12:50 EST Tel [phone], Service support , Chest X-Ray 08/07/17 12:28 IMPRESSION: Minimal increased markings in the right middle lobe. This is suggestive of mild atelectasis. Electronically Signed: Eliazar Funes MD at 12:51 EST Tel [phone], Service support , Operations: - - arthroscopic surgery on the left knee to repair a torn medial meniscus...01/[address] Waqas Rodriguez Summary of Care Provided: Patient is a 46-year-old gentleman with multiple comorbidities presented with hematuria and shortness of breath 1. Acute infectious hemorrhagic cystitis. Patient presented with hematuria (on Xarelto for history of DVT and PEs). Started on Rocephin after cultures have been sent 2. Acute hypoxia multi-factorial including patient's underlying obstructive sleep apnea, pulmonary hypertension obesity hypoventilation syndrome. Admitted to regular nursing floor placed on bronchodilator treatment as well as low-dose steroid in addition to supplemental oxygen 3. History of previous DVT and PE on systemic anticoagulation with Xarelto 4. Morbid obesity with BMI of 53.8 weight loss advised 5. New onset diabetes mellitus type 2. Patient presented with hyperglycemia hemoglobin A1c confirmed the new diagnosis of new onset diabetes mellitus type 2. Subsequently placed on long-acting insulin and Accu-Cheks before meals and at bedtime with sliding scale coverage. Patient was provided with diabetic education prior to his discharge 6. Hypertension-blood pressure controlled, home medications continued with dose adjustment as needed 7. Obstructive sleep apnea 8. Obesity hypoventilation syndrome 9. Pulmonary hypertension 10. DVT prophylaxis on Xarelto Discharge Activity: Return to Normal Activity Home Medications: Medications to take at Discharge Albuterol Inhaler [Ventolin Hfa] 1 - 2 puff INHALATION Q4H PRN PRN #1 inhaler 08/07/17 Potassium 99 mg PO DAILY 08/07/17 Albuterol IH (ProAir) [Proair Hfa] 2 puff INHALATION Q4H PRN PRN #1 inhaler 08/09/17 Atenolol [Tenormin (beta tamar)] 50 mg PO BID #120 tab 08/09/17 Cephalexin [Keflex] 500 mg PO Q12 #10 cap 08/09/17 Cyclobenzaprine [Flexeril] 10 mg PO TID PRN #30 tab 08/09/17 Furosemide [Lasix] 20 mg PO DAILY #60 tab 08/09/17 Gabapentin [Neurontin] 600 mg PO TIDCM #120 tab 08/09/17 Guaifenesin [Mucinex] 1,200 mg PO BID #14 tab 08/09/17 Insulin Detemir [Levemir FlexPen] 20 units SC BID #60 insuln.pen 08/09/17 Lisinopril/Hydrochlorothiazide [Zestoretic 10.5 Tablet] 1 tab PO DAILY #60 tab 08/09/17 Lorazepam [Ativan] 1 mg PO DAILY #30 tab 08/09/17 Metformin HCl [Glucophage] 1,000 mg PO BIDCM #120 tab 08/09/17 Omeprazole [Prilosec] 20 mg PO BID #120 cap 08/09/17 Rivaroxaban [Xarelto] 20 mg PO DAILY #60 tab 08/09/17 Sertraline HCl [Zoloft] 50 mg PO DAILY #60 tab 08/09/17 Zolpidem Tartrate [Ambien] 10 mg PO QHS PRN #30 tab 08/09/17 Following Prescrptions Were Given to Patient: Albuterol IH (ProAir) [Proair Hfa] 2 puff INHALATION Q4H PRN PRN #1 inhaler PRN Reason: Dyspnea/Wheezing/Sob Albuterol Inhaler [Ventolin Hfa] 1 - 2 puff INHALATION Q4H PRN PRN #1 inhaler PRN Reason: Wheezing Atenolol [Tenormin (beta tamar)] 50 mg PO BID #120 tab Cephalexin [Keflex] 500 mg PO Q12 #10 cap Cyclobenzaprine [Flexeril] 10 mg PO TID PRN #30 tab PRN Reason: Pain Furosemide [Lasix] 20 mg PO DAILY #60 tab Gabapentin [Neurontin] 600 mg PO TIDCM #120 tab Guaifenesin [Mucinex] 1,200 mg PO BID #14 tab Insulin Detemir [Levemir FlexPen] 20 units SC BID #60 insuln.pen Lisinopril/Hydrochlorothiazide [Zestoretic 10/12.5 Tablet] 1 tab PO DAILY #60 tab Lorazepam [Ativan] 1 mg PO DAILY #30 tab Metformin HCl [Glucophage] 1,000 mg PO BIDCM #120 tab Omeprazole [Prilosec] 20 mg PO BID #120 cap Rivaroxaban [Xarelto] 20 mg PO DAILY #60 tab Sertraline HCl [Zoloft] 50 mg PO DAILY #60 tab Zolpidem Tartrate [Ambien] 10 mg PO QHS PRN #30 tab PRN Reason: Sleep Primary Care Physician: London Barkley MD [Primary Care Provider] - 1 Week Patient Instructions: ED Upper Resp Infec Abx Tx, ED UTI Cystitis Male Disposition: Home Minutes spent on discharge:: 35 Patient Condition:: Stable Meaningful Use Info Meaningful Use Diagnoses (Choose all that apply): None applicable Code Visit Inpatient E&M: 93128 [facility] Hosp
--- NOTE | 2017-08-09 08:49 | PCM.DC ---
- Discharge Diagnoses Current Active Problems: Current Active and Chronic Problems (Last Updated 05/29/17 @ 11:20 by Deepthi Spain) DM type 2 (diabetes mellitus, type 2) (Acute) Hematuria (Acute) UTI (urinary tract infection) (Acute) Hypoxia (Acute) Discharge Activity: Return to Normal Activity Instructions: ED Upper Resp Infec Abx Tx, ED UTI Cystitis Male Allergies/Adverse Reactions: Allergies quinine Allergy (Verified 08/07/17 11:17) Hives Medications to take at Discharge Albuterol Inhaler [Ventolin Hfa] 1 - 2 puff INHALATION Q4H PRN PRN #1 inhaler 08/07/17 Potassium 99 mg PO DAILY 08/07/17 Albuterol IH (ProAir) [Proair Hfa] 2 puff INHALATION Q4H PRN PRN #1 inhaler 08/09/17 Atenolol [Tenormin (beta tamar)] 50 mg PO BID #120 tab 08/09/17 Cephalexin [Keflex] 500 mg PO Q12 #10 cap 08/09/17 Cyclobenzaprine [Flexeril] 10 mg PO TID PRN #30 tab 08/09/17 Furosemide [Lasix] 20 mg PO DAILY #60 tab 08/09/17 Gabapentin [Neurontin] 600 mg PO TIDCM #120 tab 08/09/17 Guaifenesin [Mucinex] 1,200 mg PO BID #14 tab 08/09/17 Insulin Detemir [Levemir FlexPen] 20 units SC BID #60 insuln.pen 08/09/17 Lisinopril/Hydrochlorothiazide [Zestoretic 10/12.5 Tablet] 1 tab PO DAILY #60 tab 08/09/17 Lorazepam [Ativan] 1 mg PO DAILY #30 tab 08/09/17 Metformin HCl [Glucophage] 1,000 mg PO BIDCM #120 tab 08/09/17 Omeprazole [Prilosec] 20 mg PO BID #120 cap 08/09/17 Rivaroxaban [Xarelto] 20 mg PO DAILY #60 tab 08/09/17 Sertraline HCl [Zoloft] 50 mg PO DAILY #60 tab 08/09/17 Zolpidem Tartrate [Ambien] 10 mg PO QHS PRN #30 tab 08/09/17 The following prescriptions were given: Albuterol IH (ProAir) [Proair Hfa] 2 puff INHALATION Q4H PRN PRN #1 inhaler PRN Reason: Dyspnea/Wheezing/Sob Albuterol Inhaler [Ventolin Hfa] 1 - 2 puff INHALATION Q4H PRN PRN #1 inhaler PRN Reason: Wheezing Atenolol [Tenormin (beta tamar)] 50 mg PO BID #120 tab Cephalexin [Keflex] 500 mg PO Q12 #10 cap Cyclobenzaprine [Flexeril] 10 mg PO TID PRN #30 tab PRN Reason: Pain Furosemide [Lasix] 20 mg PO DAILY #60 tab Gabapentin [Neurontin] 600 mg PO TIDCM #120 tab Guaifenesin [Mucinex] 1,200 mg PO BID #14 tab Insulin Detemir [Levemir FlexPen] 20 units SC BID #60 insuln.pen Lisinopril/Hydrochlorothiazide [Zestoretic 10/12.5 Tablet] 1 tab PO DAILY #60 tab Lorazepam [Ativan] 1 mg PO DAILY #30 tab Metformin HCl [Glucophage] 1,000 mg PO BIDCM #120 tab Omeprazole [Prilosec] 20 mg PO BID #120 cap Rivaroxaban [Xarelto] 20 mg PO DAILY #60 tab Sertraline HCl [Zoloft] 50 mg PO DAILY #60 tab Zolpidem Tartrate [Ambien] 10 mg PO QHS PRN #30 tab PRN Reason: Sleep Primary Care Physician: London Barkley MD [Primary Care Provider] - 1 Week Proposed Discharge Date: 08/09/17
[2017-08-09] MEDS: Ketorolac 15 MG/ML Vial IV (09:14)
[2017-08-09] MEDS: 0.9% NaCl Peripheral Flush Adult/Peds IV (09:14)
[2017-08-09] MEDS: Rivaroxaban 20 MG Tablet PO (10:35)
[2017-08-09] MEDS: Furosemide 20 MG Tablet PO (10:35)
[2017-08-09] MEDS: Pantoprazole Sodium 20 MG Tablet PO (10:35)
[2017-08-09] MEDS: guaiFENesin 1,200 MG Tablet 1200 MG PO (10:35)
[2017-08-09] MEDS: Lisinopril 10 MG Tablet PO (10:35)
[2017-08-09] MEDS: Sertraline 50 MG Tablet PO (10:35)
[2017-08-09] MEDS: Atenolol 100 MG Tablet PO (10:35)
[2017-08-09] MEDS: Ceftriaxone 1 GM/50 ML BAG IV (10:43)
[2017-08-09] MEDS: HYDROCHLOROTHIAZIDE 12.5 MG CAPSULE PO (11:31)
--- NOTE | 2017-08-09 11:32 | CCN.REFER ---
Referred to [facility] via email from Nicki Cortez. Unfortunately, patient resides in [place], and we will not be able to accept him due to distance.
[2017-08-09 11:55] LABS: Bedside Glucose 317 mg/dL (70-110)
--- NOTE | 2017-08-09 12:10 | CASEMGMT ---
Addendum entered by Chelle Wood 08/09/17 12:24: Flexeril also not covered by hospital assist, SW gave pt the script back, the cost is $26, pt will get this on his own. SW also did give pt some information off of the [employer] website for financial assistance, SW explained he may want to go on the website himself to look up additional information to see if there is any assist for him. SW explained did not find any information on assist for Glucophage. No further needs, pt home today. MATT Elaine, BOILERMAKING SUPERVISOR Original Note: Pt has multiple scripts and no insurance. SW tubed the scripts to the retail pharmacy, the cost is about $300, there are 3 scripts that are not covered. Also, they do not have a glucose meter at the retail pharmacy. SW spoke w/pt and in room, explained the cost of the 3 scripts not covered are $51, pt is not going to get those filled today. SW also explained cannot help w/a glucose meter, pt states he has a one touch meter, has some strips. SW gave pt the script for the meter in the event he runs out of strips. SW explained that some strips are very expensive, when he needs a refill, to check w/the pharmacy about the cost. ASHLEY explained a meter and strips at [facility] may be less expensive than just the one touch scripts. ASHLEY also gave pt the Xarelto script, as he is already on an assistance program for this. ASHLEY explained the rest of the meds will be covered this one time through hospital assist and pt can pick them up on his way out. SW explained he can only use this program once per year, pt states understanding. Pt asked if there are any system development engineer coupons for the insulin. ASHLEY explained that this SW does not have any, can look online. MATT Elaine, BOILERMAKING SUPERVISOR
== END 2017-08-09 13:50 | disposition home or self-care (01) | DRG 690 ==
LOC: ED 13:54 → MS2 14:29
PROVIDERS: Admitting Provider Internal Medicine; Emergency Provider Emergency Medicine; Family Provider Family Medicine; PCP Family Medicine; Visit Provider Internal Medicine
DX: N30.01 Acute cystitis with hematuria (principal); I27.20 Pulmonary hypertension, unspecified; E66.2 Morbid (severe) obesity with alveolar hypoventilation; E11.65 Type 2 diabetes mellitus with hyperglycemia; Z68.43 Body mass index [BMI] 50.0-59.9, adult; R09.02 Hypoxemia; I10 Essential (primary) hypertension; F17.201 Nicotine dependence, unspecified, in remission; Z86.718 Personal history of other venous thrombosis and embolism; Z79.4 Long term (current) use of insulin; Z79.01 Long term (current) use of anticoagulants
CPT/HCPCS: 36415; 71046; 74176; 80048; 80076; 81001; 82947; 82962; 83036; 83880; 84484; 85025; 85610; 85730; 87070; 87077; 87086; 87205; 87804; 93005; 94640; 94667; 94668; 99251; 99285; 99406; J7030; A4216; G0463; J2405

== ENCOUNTER 2017-08-23 16:15 | Inpatient (IN) | payer MEDICAID, SELFPAY ==
[2017-08-23] VITALS (8 sets, daily range): BP systolic 123–145; BP diastolic 63–82; PULSE 71–88; RESP 14–22; TEMP 36.6–37.1; O2SAT 94–100; BMI 58.3; BMI 56.1
--- NOTE | 2017-08-23 16:28 | RAD_ITS ---
STUDY: X-RAY CHEST REASON FOR EXAM: Male, 46 years old. Fall. TECHNIQUE: AP portable view of the chest. COMPARISON: August 07, 2017. FINDINGS: The lungs are clear and expanded. There is no demonstrated pleural abnormality. Normal size heart. Normal mediastinum and natalia. Normal visualized pulmonary arteries. Normal visualized aortic arch and descending thoracic aorta. Normal visualized thoracic spine. Normal visualized ribs, clavicles, and shoulders. There is no demonstrated abnormality of the visualized soft tissue structures of the upper abdomen. RAD/Chest 1 View (Portable) IMPRESSION: Normal x-ray examination of the chest. Electronically Signed: Andrew Teixeira MD at 18:09 EDT , Service support ,
--- NOTE | 2017-08-23 16:28 | EKG12_ITS ---
Test Reason : FALL Blood Pressure : / mmHG Vent. Rate : 078 BPM Atrial Rate : 078 BPM P-R Int : 156 ms QRS Dur : 078 ms QT Int : 378 ms P-R-T Axes : 052 030 026 degrees QTc Int : 430 ms Normal sinus rhythm Normal ECG Confirmed by SHANNAN DAVIS ([id number]), acquisition editor MANAV CARMEN ([id number] on 08/28/2017 1:50:44 PM Referred By: LILIA Confirmed By:SHANNAN DAVIS
--- NOTE | 2017-08-23 16:29 | RAD_ITS ---
STUDY: X-RAY - RIGHT TIBIA AND FIBULA REASON FOR EXAM: Male, 46 years old. Fall TECHNIQUE: Frontal and lateral view(s) of the tibia and fibula were obtained. COMPARISON: None. FINDINGS: There is demineralization of the tibia. There is demineralization of the fibula. There is no demonstrated acute fracture. The soft tissue structures are unremarkable. RAD/Tibia & Fibula 2 Views IMPRESSION: Demineralization of the osseous structures. Electronically Signed: Andrew Teixeira MD at 18:03 EDT , Service support ,
--- NOTE | 2017-08-23 16:29 | RAD_ITS ---
STUDY: X-RAY - PELVIS REASON FOR EXAM: Male, 46 years old. Fall. TECHNIQUE: One view of the pelvis was obtained. COMPARISON: None. FINDINGS: There is a non-obstructive bowel gas pattern. There are multiple calcified phleboliths. Normal bilateral iliac wings, sacroiliac joints and visualized sacrum. Normal visualized bilateral superior and inferior pubic rami. Normal pubic symphysis. Normal ischial tuberosities. Right hip replacement . Alignment is near-anatomic. Normal visualized left femoral head. Normal left acetabulum. Normal left hip joint. RAD/Pelvis 1 or 2 Views IMPRESSION: No fracture. Right hip replacement. Electronically Signed: Andrew Teixeira MD at 18:13 EDT , Service support ,
--- NOTE | 2017-08-23 16:29 | RAD_ITS ---
STUDY: X-RAY - RIGHT KNEE REASON FOR EXAM: Male, 46 years old. Fall TECHNIQUE: 2 view(s) of the knee. COMPARISON: None. FINDINGS: There is demineralization of the visualized distal femur. Nondisplaced medial femoral condyle fracture There is demineralization of the tibia and fibula. Normal proximal tibiofibular articulation. Normal medial femorotibial compartment. Normal lateral femorotibial compartment. Normal patellofemoral articulation. There is a large volume joint effusion. The soft tissue structures are unremarkable. RAD/Knee 1 or 2 Views IMPRESSION: Distal femur fracture. Joint effusion. Electronically Signed: Andrew Teixeira MD at 18:02 EDT , Service support ,
--- NOTE | 2017-08-23 16:29 | RAD_ITS ---
STUDY: X-RAY - RIGHT FEMUR REASON FOR STUDY: Male, 46 years old. Fall TECHNIQUE: Radiological exam, femur, minimum 2 views COMPARISON: None. FINDINGS: There is diffuse demineralization of the femur. Left hip replacement. Distal femur fracture at the knee extending through the medial femoral condyle. Normal visualized soft tissue structure. RAD/Femur Min 2 Views IMPRESSION: Distal femur fracture. Electronically Signed: Andrew Teixeira MD at 17:58 EDT , Service support ,
[2017-08-23] MEDS: Ondansetron 4 MG/2 ML Vial IV ×2 (16:44→23:01)
[2017-08-23 16:57] LABS: Absolute Lymphocyte Count 2.91 X10^3/ul (0.83-4.51); Absolute Neutrophil Count 4.9 X10^3/uL (2.0-7.7); Basophil# 0.06 X10^3/uL; Basophil% 0.7 % (0-1); Eosinophils% 2.3 % (0-5); Hematocrit 42.9 % (40-54); Hemoglobin 14.2 g/dl (13.0-16.5); Lymphocyte # 2.91 X10^3/ul (4.0); Lymphocyte % 32.8 % (19-41); Mean Corp Hgb Conc 33.1 g/gl (32-36); Mean Corpuscular Volume 96.6 fL (80-94); Mean Platelet Vol. 9.6 fl (6.2-12.0); Monocyte# 0.75 X10^3/uL; Monocyte% 8.5 % (0-10); Neutrophil # 4.92 X10^3/uL (2.7-7.7); Neutrophil % 55.4 % (47-70); Platelet Count 248 K/mm3 (150-450); RBC Distribution Width CV 13.4 % (11.6-14.6); RBC Distribution Width SD 47.4 fl (35.1-43.9); Red Blood Count 4.44 M/mm3 (4.6-6.2); White Blood Count 8.9 K/mm3 (4.4-11.0)
[2017-08-23 16:59] LABS: POSITIVE COUNT NO; POSITIVE DIFFERENTIAL NO; POSITIVE MORPHOLOGY NO
[2017-08-23 17:05] LABS: International Normalized Ratio 1.6; Prothrombin Time (Protime)PT. 19.2 SECONDS (11.7-14.9)
[2017-08-23 17:06] LABS: Partial Thromboplast Time 35.8 Seconds (24.1-36.2)
[2017-08-23 17:23] LABS: Anion Gap 10 (5-15); BUN 14 mg/dL (7-18); BUN/Creat Ratio 13.3 RATIO (10-20); Calcium,Total 8.6 mg/dL (8.5-10.1); Chloride 107 mmol/L (98-107); Creatinine, Serum 1.05 mg/dL (0.70-1.30); EST Glomerular Filtration Rate 80 mL/min (>60); Est Glom Filt Rate - Afr Amer 97 mL/min (>60); Estimated Creatinine Clearance 92.63 ml/min; Glucose 93 mg/dL (74-106); Potassium 4.3 mmol/L (3.5-5.1); Sodium Level 139 mmol/L (136-145)
--- NOTE | 2017-08-23 18:52 | CT_ITS ---
STUDY: CT RIGHT KNEE WITHOUT CONTRAST REASON FOR EXAM: Male, 46 years old. Fracture RADIATION DOSAGE (If Supplied By Facility): CTDIvol = ( 24.67 ) mGy, DLP = ( 944.70 ) mGycm TECHNIQUE: Transaxial CT imaging of the knee was performed. Coronal and sagittal images were reformatted. COMPARISON: None. FINDINGS: There is oblique fracture of the medial femoral condyle extending to the intercondylar region. Normal medial tibial plateau. There is preservation of the articular joint space of the medial knee compartment. Normal lateral femoral condyle and lateral tibial plateau. There is preservation of the articular joint space of the lateral knee compartment. Normal proximal tibiofibular articulation. There is large joint effusion with fluid level consistent with hemarthrosis. The quadriceps tendon is grossly normal. The patellar tendon is grossly normal. Normal Hoffa's fat pad. There is medial soft tissue swelling. CT/Extremity Lower without Contra IMPRESSION: Distal femur fracture. Electronically Signed: Andrew Teixeira MD at 19:58 EDT , Service support ,
--- NOTE | 2017-08-23 19:01 | PCM.HP.STD ---
Problem List (1) DM type 2 (diabetes mellitus, type 2) Status: Chronic (2) KHALIF (obstructive sleep apnea) Status: Chronic (3) Pulmonary HTN Status: Chronic (4) Hypertension Status: Chronic (5) GERD Status: Chronic (6) Morbid obesity Status: Chronic (7) Pulmonary embolism Status: Chronic (8) Lumbosacral spondylosis Status: Chronic History of Present Illness Date of Admission: 08/23/17 Chief Complaint: Fall, right knee pain. The patient is a 46 year old M with multiple medical comorbidities as mentioned above presented to the emergency room because of fall and right knee pain. This afternoon, patient was shopping, pushing his cart and he was trying to avoid another patient coming from the other way and he fell on his right side hurting his right knee. Immediately, he started having severe right knee pain, sharp pain, 10 out of 10 in severity, screaming, aggravated by even slight movement and without relieving factors. He denied any symptoms preceding the event such as chest pain, shortness of breath, dizziness or lightheadedness. Recent complaint of hematuria that has been going on for few weeks. He did mention that today morning, he had blood clots in his urine. At this time, he urinated twice in the emergency room and his urine looks clean. In the emergency room, his vital signs are stable. His routine blood work was unremarkable. X-ray of the right femur revealed distal femur fracture. Chest x-ray showed no acute findings. EKG revealed normal sinus rhythm, normal DE interval, normal QRS and no acute ischemic changes. X-ray of the pelvis revealed no acute fractures or dislocations. X-ray of the right tibia and fibula showed no acute fractures or dislocations. He is being admitted for acute traumatic right distal femur fracture due to mechanical fall. Past Medical History Past Medical History (Chronic Problems): Chronic Problems (Last Updated 08/23/17 @ 19:01 by Ruben Hilario MD) UTI (urinary tract infection) (Chronic) DM type 2 (diabetes mellitus, type 2) (Chronic) Premature ventricular contraction (Chronic) Tachycardia (Chronic) Dyspnea (Chronic) KHALIF (obstructive sleep apnea) (Chronic) Tobacco dependence in remission (Chronic) Restrictive lung disease (Chronic) Pulmonary HTN (Chronic) Hypertension (Chronic) Obesity (Chronic) GERD (Chronic) VTE (venous thromboembolism) (Chronic) Morbid obesity (Chronic) Pulmonary embolism (Chronic) DVT (deep venous thrombosis) (Chronic) RLE Tear of medial meniscus of left knee (Chronic) Left ventricular hypertrophy (Chronic) Tricuspid regurgitation (Chronic) Lumbosacral spondylosis (Chronic) Degeneration of lumbosacral intervertebral disc (Chronic) Lumbosacral radiculopathy (Chronic) Allergies quinine Allergy (Verified 08/23/17 16:17) Hives Home Medications: Ambulatory Orders Medication Instructions Recorded Albuterol Inhaler [Ventolin Hfa] 1 - 2 puff INHALATION Q4H PRN PRN 08/07/17 #1 inhaler Potassium 99 mg PO DAILY 08/07/17 Albuterol IH (ProAir) [Proair Hfa] 2 puff INHALATION Q4H PRN PRN #1 08/09/17 inhaler Atenolol [Tenormin (beta tamar)] 50 mg PO BID #120 tab 08/09/17 Cyclobenzaprine [Flexeril] 10 mg PO TID PRN #30 tab 08/09/17 Furosemide [Lasix] 20 mg PO DAILY #60 tab 08/09/17 Gabapentin [Neurontin] 600 mg PO TIDCM #120 tab 08/09/17 Insulin Detemir [Levemir FlexPen] 20 units SC BID #60 insuln.pen 08/09/17 Lisinopril/Hydrochlorothiazide 1 tab PO DAILY #60 tab 08/09/17 [Zestoretic 10/.5 Tablet] Lorazepam [Ativan] 1 mg PO DAILY #30 tab 08/09/17 Omeprazole [Prilosec] 20 mg PO BID #120 cap 08/09/17 Rivaroxaban [Xarelto] 20 mg PO DAILY #60 tab 08/09/17 Sertraline HCl [Zoloft] 50 mg PO DAILY #60 tab 08/09/17 Metformin HCl [Glucophage] 500 mg PO BIDCM 08/23/17 Varenicline Tartrate [Chantix] 1 tab PO DAILY 08/23/17 Surgical History: appendectomy, total knee arthroplasty, - - Appendectomy, chest surgery for removal of organized clot under rib cage, heart catheterization Psychiatric History: No pertinent psych hx Lives: With Family Smoking Status: Current every day smoker Alcohol: None Drugs: None - *Family History Maternal History Items: Heart Disease Paternal History Items: Heart Disease Review of Systems Constitutional: Denies: Anorexia, Chills, Fever, Weakness Eyes: Denies: Blurred vision, Double vision, Drainage, Redness HEENT: Denies: Difficulty Hearing, Dysphasia, Ear Pain, Eye Pain, Nasal Congestion, Sore Throat Cardiovascular: Denies: Chest Pain, Chest Pressure, Chest Tightness, Edema, Heaviness, Light Headedness, Orthopnea, Syncope Respiratory: Denies: Cough, Pleuritic Pain, Shortness of Breath, Sputum production, Wheezing Gastrointestinal: Denies: Abdominal Pain, Constipation, Diarrhea, Nausea, Vomiting Genitourinary: Reports: Hematuria. Denies: Dysuria, Frequency Musculoskeletal: Reports: Joint Pain. Denies: Arm Pain, Back Pain, Foot Pain Skin: Denies: Dryness, Rash Neurological: Denies: Balance problems, Double vision, Change in Speech, Slurred speech, Confusion, Focal weakness, Headaches, Incoordination, Numbness Psychiatric: Denies: Anxiety, Depression Endocrine: Denies: Change in Body Habitus, Polydipsia VTE Information - Inpt Only VTE Present on Admission: No VTE Mechan Device Prophylaxis: None VTE Pharm Prophylaxis ordered?: No - Physical Exam General: Alert, Oriented x3, Cooperative, - - He is in severe pain. HEENT: Atraumatic, PERRLA, EOMI Oral: Moist Mucosa, No Gingival or Mucosal Lesions/ Ulcerations Neck: Supple, No JVD, Negative Carotid Bruits, Trachea Midline, Thyroid Normal Size and Texture Lungs: Clear to auscultation, No rhonchi, No wheeze, No rales, Diminished Cardiovascular: Regular rate, Regular Rhythm, Normal S1, Normal S2, PMI Normal Abdomen: Bowel Sounds Present, Soft, Non Tender, Non-Distended, No Hepato-splenomegaly, Obese Extremities: No clubbing, No cyanosis, Edema - Trace edema. Skin: No rashes, No breakdown Lymphatic: No Cervical, Supraclavicular, or Inguinal Adenopathy Neurological: Cranial nerves II-XII grossly intact, Motor Exam 5/5 strength throughout Psych/Mental Status: Normal Affect, Appropriate, Alert and oriented to time, place, person, mood and affect Vital Signs Temp Pulse Resp BP Pulse Ox 97.9 F 85 18 136/76 H 94 08/23/17 16:17 08/23/17 16:17 03/14/18 16:17 08/23/17 18:05 08/23/17 18:05 Laboratory Tests 08/23/17 08/23/17 08/23/17 Range/Units 16:44 16:44 16:44 WBC 8.9 (4.4-11.0) K/mm3 RBC 4.44 L (4.6-6.2) M/mm3 Hgb 14.2 (13.0-16.5) g/dl Hct 42.9 (40-54) % MCV 96.6 H (80-94) fL MCH 32.0 (27.0-32.0) pg MCHC 33.1 (32-36) g/gl RDW 13.4 (11.6-14.6) % RDW Differential 47.4 H (35.1-43.9) fl Plt Count 248 (150-450) K/mm3 MPV 9.6 (6.2-12.0) fl Immature Gran % (Auto) 0.300 (0.0-0.9) % Neut % (Auto) 55.4 (47-70) % Lymph % (Auto) 32.8 (19-41) % [place] % (Auto) 8.5 (0-10) % Eos % (Auto) 2.3 (0-5) % Baso % (Auto) 0.7 (0-1) % Absolute Neuts (auto) 4.9 (2.0-7.7) X10^3/uL Absolute Lymphs (auto) 2.91 (0.83-4.51) X10^3/ul Total Counted Not Reportable PT 19.2 H (11.7-14.9) SECONDS INR 1.6 APTT 35.8 (24.1-36.2) Seconds Sodium 139 (136-145) mmol/L Potassium 4.3 (3.5-5.1) mmol/L Chloride 107 (98-107) mmol/L Carbon Dioxide 22.0 (21.0-32.0) mmol/L Anion Gap 10 (5-15) BUN 14 (7-18) mg/dL Creatinine 1.05 (0.70-1.30) mg/dL Estim Creat Clear Calc 92.63 ml/min Est GFR (MDRD) Af Amer 97 (>60) mL/min Est GFR (MDRD) Non-Af 80 (>60) mL/min BUN/Creatinine Ratio 13.3 (10-20) RATIO Glucose 93 (74-106) mg/dL Calcium 8.6 (8.5-10.1) mg/dL Clinical Impression(s) from Imaging Studies Chest X-Ray 08/23/17 16:28 IMPRESSION: Normal x-ray examination of the chest. Electronically Signed: Andrew Teixeira MD at 18:09 EDT , Service support , Femur X-Ray 08/23/17 16:29 IMPRESSION: Distal femur fracture. Electronically Signed: Andrew Teixeira MD at 17:58 EDT , Service support , Knee X-Ray 08/23/17 16:29 IMPRESSION: Distal femur fracture. Joint effusion. Electronically Signed: Andrew Teixeira MD at 18:02 EDT , Service support , Pelvis X-Ray 08/23/17 16:29 IMPRESSION: No fracture. Right hip replacement. Electronically Signed: Andrew Teixeira MD at 18:13 EDT , Service support , Tibia/Fibula X-Ray 08/23/17 16:29 IMPRESSION: Demineralization of the osseous structures. Electronically Signed: Andrew Teixeira MD at 18:03 EDT , Service support , Assessment/Plan This is a 46 years old male patient presented to the medicine because of mechanical fall and right knee pain, found to have acute traumatic distal right hip fracture and is being admitted for pain control and evaluation by orthopedic surgery. #1 acute traumatic right distal femur fracture: Due to mechanical fall. X-ray of the right femur reviewed. Other imaging studies including x-ray of the pelvis, tibia and fibula, chest x-ray and x-ray of the right knee reviewed and findings noted which is only distal right femur fracture, otherwise no acute fractures or dislocations. Plan: Admit to MedSur floor, bedrest, IV morphine as needed for pain, IV OxyIR as needed for pain, IV fluids, IV antiemetics, orthopedic surgery consult, PT OT evaluation and treatment. #2 hypertension: Blood pressure stable, continue atenolol, lisinopril and HCTZ. #3 type 2 diabetes mellitus: Blood sugar stable, ADA diet, Accu-Cheks, insulin sliding scale, continue Levemir insulin twice daily and metformin. #4 history of pulmonary embolism: Continue Xarelto. #5 hematuria: Patient complained of hematuria that has been going on for few weeks on review of systems. At this time, he urinated twice in the ER and his urine was clean. Recommended follow-up with urology as outpatient. #6 tobacco abuse: Continue Chantix when dose updated. #7 obstructive sleep apnea: Not sure if patient is on CPAP at home. At this time, pulse ox is normal on room air. #8 DVT prophylaxis: Continue Xarelto. Other chronic medical problems: Stable, continue home medications. #1 GERD. #2 history of cardiac arrest. #3 morbid obesity. #4 chronic back pain. #5 anxiety/depression. This note was generated with [employer] dictation software. It may contain incorrect words, spelling, and punctuation that were not noted in checking the note before signing. Code Visit Inpatient E&M: 95023 Init Hosp L3
--- NOTE | 2017-08-23 19:11 | HP.PCM_ITS ---
Problem List (1) DM type 2 (diabetes mellitus, type 2) Status: Chronic (2) KHALIF (obstructive sleep apnea) Status: Chronic (3) Pulmonary HTN Status: Chronic (4) Hypertension Status: Chronic (5) GERD Status: Chronic (6) Morbid obesity Status: Chronic (7) Pulmonary embolism Status: Chronic (8) Lumbosacral spondylosis Status: Chronic History of Present Illness Date of Admission: 08/23/17 Chief Complaint: Fall, right knee pain. The patient is a 46 year old M with multiple medical comorbidities as mentioned above presented to the emergency room because of fall and right knee pain. This afternoon, patient was shopping, pushing his cart and he was trying to avoid another patient coming from the other way and he fell on his right side hurting his right knee. Immediately, he started having severe right knee pain, sharp pain, 10 out of 10 in severity, screaming, aggravated by even slight movement and without relieving factors. He denied any symptoms preceding the event such as chest pain, shortness of breath, dizziness or lightheadedness. Recent complaint of hematuria that has been going on for few weeks. He did mention that today morning, he had blood clots in his urine. At this time, he urinated twice in the emergency room and his urine looks clean. In the emergency room, his vital signs are stable. His routine blood work was unremarkable. X-ray of the right femur revealed distal femur fracture. Chest x -ray showed no acute findings. EKG revealed normal sinus rhythm, normal OK interval, normal QRS and no acute ischemic changes. X-ray of the pelvis revealed no acute fractures or dislocations. X-ray of the right tibia and fibula showed no acute fractures or dislocations. He is being admitted for acute traumatic right distal femur fracture due to mechanical fall. Past Medical History Past Medical History (Chronic Problems): Chronic Problems (Last Updated 08/23/17 @ 19:01 by Ruben Hilario MD) UTI (urinary tract infection) (Chronic) DM type 2 (diabetes mellitus, type 2) (Chronic) Premature ventricular contraction (Chronic) Tachycardia (Chronic) Dyspnea (Chronic) KHALIF (obstructive sleep apnea) (Chronic) Tobacco dependence in remission (Chronic) Restrictive lung disease (Chronic) Pulmonary HTN (Chronic) Hypertension (Chronic) Obesity (Chronic) GERD (Chronic) VTE (venous thromboembolism) (Chronic) Morbid obesity (Chronic) Pulmonary embolism (Chronic) DVT (deep venous thrombosis) (Chronic) RLE Tear of medial meniscus of left knee (Chronic) Left ventricular hypertrophy (Chronic) Tricuspid regurgitation (Chronic) Lumbosacral spondylosis (Chronic) Degeneration of lumbosacral intervertebral disc (Chronic) Lumbosacral radiculopathy (Chronic) Allergies quinine Allergy (Verified 08/23/17 16:17) Hives Home Medications: Ambulatory Orders Medication Instructions Recorded Albuterol Inhaler [Ventolin Hfa] 1 - 2 puff INHALATION Q4H PRN PRN 08/07/17 #1 inhaler Potassium 99 mg PO DAILY 08/07/17 Albuterol IH (ProAir) [Proair Hfa] 2 puff INHALATION Q4H PRN PRN #1 08/09/17 inhaler Atenolol [Tenormin (beta tamar)] 50 mg PO BID #120 tab 08/09/17 Cyclobenzaprine [Flexeril] 10 mg PO TID PRN #30 tab 08/09/17 Furosemide [Lasix] 20 mg PO DAILY #60 tab 08/09/17 Gabapentin [Neurontin] 600 mg PO TIDCM #120 tab 08/09/17 Insulin Detemir [Levemir FlexPen] 20 units SC BID #60 insuln.pen 08/09/17 Lisinopril/Hydrochlorothiazide 1 tab PO DAILY #60 tab 08/09/17 [Zestoretic 10/.5 Tablet] Lorazepam [Ativan] 1 mg PO DAILY #30 tab 08/09/17 Omeprazole [Prilosec] 20 mg PO BID #120 cap 08/09/17 Rivaroxaban [Xarelto] 20 mg PO DAILY #60 tab 08/09/17 Sertraline HCl [Zoloft] 50 mg PO DAILY #60 tab 08/09/17 Metformin HCl [Glucophage] 500 mg PO BIDCM 08/23/17 Varenicline Tartrate [Chantix] 1 tab PO DAILY 08/23/17 Surgical History: appendectomy, total knee arthroplasty, - - Appendectomy, chest surgery for removal of organized clot under rib cage, heart catheterization Psychiatric History: No pertinent psych hx Lives: With Family Smoking Status: Current every day smoker Alcohol: None Drugs: None - *Family History Maternal History Items: Heart Disease Paternal History Items: Heart Disease Review of Systems Constitutional: Denies: Anorexia, Chills, Fever, Weakness Eyes: Denies: Blurred vision, Double vision, Drainage, Redness HEENT: Denies: Difficulty Hearing, Dysphasia, Ear Pain, Eye Pain, Nasal Congestion, Sore Throat Cardiovascular: Denies: Chest Pain, Chest Pressure, Chest Tightness, Edema, Heaviness, Light Headedness, Orthopnea, Syncope Respiratory: Denies: Cough, Pleuritic Pain, Shortness of Breath, Sputum production, Wheezing Gastrointestinal: Denies: Abdominal Pain, Constipation, Diarrhea, Nausea, Vomiting Genitourinary: Reports: Hematuria. Denies: Dysuria, Frequency Musculoskeletal: Reports: Joint Pain. Denies: Arm Pain, Back Pain, Foot Pain Skin: Denies: Dryness, Rash Neurological: Denies: Balance problems, Double vision, Change in Speech, Slurred speech, Confusion, Focal weakness, Headaches, Incoordination, Numbness Psychiatric: Denies: Anxiety, Depression Endocrine: Denies: Change in Body Habitus, Polydipsia VTE Information - Inpt Only VTE Present on Admission: No VTE Mechan Device Prophylaxis: None VTE Pharm Prophylaxis ordered?: No - Physical Exam General: Alert, Oriented x3, Cooperative, - - He is in severe pain. HEENT: Atraumatic, PERRLA, EOMI Oral: Moist Mucosa, No Gingival or Mucosal Lesions/ Ulcerations Neck: Supple, No JVD, Negative Carotid Bruits, Trachea Midline, Thyroid Normal Size and Texture Lungs: Clear to auscultation, No rhonchi, No wheeze, No rales, Diminished Cardiovascular: Regular rate, Regular Rhythm, Normal S1, Normal S2, PMI Normal Abdomen: Bowel Sounds Present, Soft, Non Tender, Non-Distended, No Hepato- splenomegaly, Obese Extremities: No clubbing, No cyanosis, Edema - Trace edema. Skin: No rashes, No breakdown Lymphatic: No Cervical, Supraclavicular, or Inguinal Adenopathy Neurological: Cranial nerves II-XII grossly intact, Motor Exam 5/5 strength throughout Psych/Mental Status: Normal Affect, Appropriate, Alert and oriented to time, place, person, mood and affect Vital Signs Temp Pulse Resp BP Pulse Ox 97.9 F 85 18 136/76 H 94 08/23/17 16:17 08/23/17 16:17 03/14/18 16:17 08/23/17 18:05 08/23/17 18:05 Laboratory Tests 3 08/23/17 08/23/17 08/23/17 Range/Units 16:44 16:44 16:44 WBC 8.9 (4.4-11.0) K/mm3 RBC 4.44 L (4.6-6.2) M/mm3 Hgb 14.2 (13.0-16.5) g/dl Hct 42.9 (40-54) % MCV 96.6 H (80-94) fL MCH 32.0 (27.0-32.0) pg MCHC 33.1 (32-36) g/gl RDW 13.4 (11.6-14.6) % RDW Differential 47.4 H (35.1-43.9) fl Plt Count 248 (150-450) K/mm3 MPV 9.6 (6.2-12.0) fl Immature Gran % (Auto) 0.300 (0.0-0.9) % Neut % (Auto) 55.4 (47-70) % Lymph % (Auto) 32.8 (19-41) % [place] % (Auto) 8.5 (0-10) % Eos % (Auto) 2.3 (0-5) % Baso % (Auto) 0.7 (0-1) % Absolute Neuts (auto) 4.9 (2.0-7.7) X10^3/uL Absolute Lymphs (auto) 2.91 (0.83-4.51) X10^3/ul Total Counted Not Reportable PT 19.2 H (11.7-14.9) SECONDS INR 1.6 APTT 35.8 (24.1-36.2) Seconds Sodium 139 (136-145) mmol/L Potassium 4.3 (3.5-5.1) mmol/L Chloride 107 (98-107) mmol/L Carbon Dioxide 22.0 (21.0-32.0) mmol/L Anion Gap 10 (5-15) BUN 14 (7-18) mg/dL Creatinine 1.05 (0.70-1.30) mg/dL Estim Creat Clear Calc 92.63 ml/min Est GFR (MDRD) Af Amer 97 (>60) mL/min Est GFR (MDRD) Non-Af 80 (>60) mL/min BUN/Creatinine Ratio 13.3 (10-20) RATIO Glucose 93 (74-106) mg/dL Calcium 8.6 (8.5-10.1) mg/dL Clinical Impression(s) from Imaging Studies Chest X-Ray 08/23/17 16:28 IMPRESSION: Normal x-ray examination of the chest. Electronically Signed: Andrew Teixeira MD at 18:09 EDT , Service support , Femur X-Ray 08/23/17 16:29 IMPRESSION: Distal femur fracture. Electronically Signed: Andrew Teixeira MD at 17:58 EDT , Service support , Knee X-Ray 08/23/17 16:29 IMPRESSION: Distal femur fracture. Joint effusion. Electronically Signed: Andrew Teixeira MD at 18:02 EDT , Service support , Pelvis X-Ray 08/23/17 16:29 IMPRESSION: No fracture. Right hip replacement. Electronically Signed: Andrew Teixeira MD at 18:13 EDT , Service support , Tibia/Fibula X-Ray 08/23/17 16:29 IMPRESSION: Demineralization of the osseous structures. Electronically Signed: Andrew Teixeira MD at 18:03 EDT , Service support , Assessment/Plan This is a 46 years old male patient presented to the medicine because of mechanical fall and right knee pain, found to have acute traumatic distal right hip fracture and is being admitted for pain control and evaluation by orthopedic surgery. #1 acute traumatic right distal femur fracture: Due to mechanical fall. X-ray of the right femur reviewed. Other imaging studies including x-ray of the pelvis, tibia and fibula, chest x-ray and x-ray of the right knee reviewed and findings noted which is only distal right femur fracture, otherwise no acute fractures or dislocations. Plan: Admit to MedSur floor, bedrest, IV morphine as needed for pain, IV OxyIR as needed for pain, IV fluids, IV antiemetics, orthopedic surgery consult, PT OT evaluation and treatment. #2 hypertension: Blood pressure stable, continue atenolol, lisinopril and HCTZ. #3 type 2 diabetes mellitus: Blood sugar stable, ADA diet, Accu-Cheks, insulin sliding scale, continue Levemir insulin twice daily and metformin. #4 history of pulmonary embolism: Continue Xarelto. #5 hematuria: Patient complained of hematuria that has been going on for few weeks on review of systems. At this time, he urinated twice in the ER and his urine was clean. Recommended follow-up with urology as outpatient. #6 tobacco abuse: Continue Chantix when dose updated. #7 obstructive sleep apnea: Not sure if patient is on CPAP at home. At this time, pulse ox is normal on room air. #8 DVT prophylaxis: Continue Xarelto. Other chronic medical problems: Stable, continue home medications. #1 GERD. #2 history of cardiac arrest. #3 morbid obesity. #4 chronic back pain. #5 anxiety/depression. This note was generated with [employer] dictation software. It may contain incorrect words, spelling, and punctuation that were not noted in checking the note before signing. Code Visit Inpatient E&M: 49923 Init Hosp L3
--- NOTE | 2017-08-23 19:30 | NURSING ---
WITH 3 RNS ORTHO GLASS WITH 3 ENE WRAPS PLACED BEHIND RIGHT KNEE EXTENDING FROM JUST ABOVE ANKLE TO RIGHT BELOW BUTTOCK. LEG ELEVATED WITH MULTIPLE SOFT BLANKETS
[2017-08-23] MEDS: oxyCODONE 5 MG Tablet PO (20:50)
[2017-08-23 21:01] LABS: Bedside Glucose 121 mg/dL (70-110)
[2017-08-23] MEDS: Pantoprazole Sodium 20 MG Tablet PO (21:40)
[2017-08-23] MEDS: Docusate Sodium 100 MG Capsule PO (21:40)
[2017-08-23] MEDS: Atenolol 50 MG Tablet PO (21:42)
[2017-08-23] MEDS: Acetaminophen 325 MG Tablet 650 MG PO (21:54)
[2017-08-23] MEDS: HYDROmorphone 1 MG/ML Syringe IV (23:01)
[2017-08-23] MEDS: 0.9% NaCl Peripheral Flush Adult/Peds IV (23:01)
[2017-08-24] MEDS: oxyCODONE 5 MG Tablet 10 MG PO ×5 (01:46→22:21)
[2017-08-24 02:13] VITALS: BP 104/58; PULSE 66; RESP 18; TEMP 36.8; O2SAT 95
--- NOTE | 2017-08-24 02:28 | ED.DCSUM_ITS ---
- ER Visit Summary Date of Service: 08/24/17 Chief Complaint: Right leg injury History of Present Illness: The patient is a 46 M presenting for evaluation secondary to right leg injury. Patient states he was walking in the grocery store and suffered a slip trip and fall where he had a significant amount of pain in his right knee and was unable to move. Denies hitting his head or loss of consciousness. Denies any numbness or weakness. Patient has an underlying history of pulmonary embolism and is on anticoagulation for this. Review of systems otherwise negative. Physical Examination: Primary survey: Airway is patent, breath sounds equal bilateral, central peripheral pulses 2+ and symmetric, GCS 15 out of 15. Vitals within normal limits. Secondary survey: General: Well-nourished well-developed morbidly obese, visibly in distress secondary to pain Head: Normocephalic atraumatic Eyes: PERRLA, EOMI ENT: TMs clear no hemotympanum no drainage Neck: Nontender full range of motion, no step-offs noted Heart: Regular rate and rhythm no murmurs Lungs: Respirations nondistressed, lung sounds clear to auscultation bilaterally , chest nontender, normal chest excursion bilaterally Abdomen: Soft nontender nondistended normal bowel sounds no palpable abdominal masses Back: Nontender no step-offs noted Extremities: Right lower extremity exam shows significant amount of swelling over the patient's distal femur and knee with completely limited range of motion secondary to severe pain. Pain with touching this area. Decreased sensation distally secondary to neuropathy which is unchanged. 2+ PT pulses that are bilaterally symmetric Skin: Normal color no trauma Neuro: Alert and oriented ?4, GCS 15 out of 15, no lateralizing neurological deficits. Test Results: Hip x-ray negative, femur x-ray shows a nondisplaced medial femoral condyle fracture, tib-fib x-rays negative, chest x-ray negative. EKG shows sinus rhythm of [address] segments normal T waves. CBC chemistry coagulation studies unremarkable Emergency Department Course and Treatment: Patient presented secondary to mechanical fall. Primary and secondary surveys are noted as above. Patient does not appear to have any sort of neurovascular compromise, so he was taken to radiology after he was administered morphine and Zofran. X-rays demonstrated nondisplaced fracture. Discussed patient's case with Dr. Vazquez who agrees to see the patient in consultation. Concern for the development of a compartment syndrome in this patient given his long bone fracture and anticoagulation status. Patient was placed in a knee immobilizer and his leg was elevated and he will be admitted to the hospitalist. Disposition: Admission Impression: 1. Closed the medial femoral condyle fracture 2. Coagulopathy This note was generated with [employer] dictation software. It may contain incorrect words, spelling, and punctuation that were not noted in review of the chart prior to signing ED Disposition - Plan for ED Patient: Disposition: Acute Care Hospital [facility] [place] Chief Complaint: Lower Extremity Injury
[2017-08-24] MEDS: HYDROmorphone 1 MG/ML Syringe IV ×6 (03:40→23:46)
[2017-08-24] MEDS: 0.9% NaCl Peripheral Flush Adult/Peds IV ×7 (03:40→23:46)
--- NOTE | 2017-08-24 03:51 | NURSING ---
SPOKE WITH PT THAT HE COULD POSSIBLY GO TO SURGERY TODAY IF DR THINKS THAT IS NECESSARY WANTED TO DO [facility] BUT PT REFUSED STATES HE DALEY WHEN HE USES THEM. ALSO INFORMED OF DIET CLEARS NOW IN CASE GOES
[2017-08-24] MEDS: Acetaminophen 325 MG Tablet 650 MG PO ×3 (06:29→23:46)
[2017-08-24 06:46] LABS: Bedside Glucose 108 mg/dL (70-110)
[2017-08-24 07:11] LABS: AST(SGOT) 83 U/L (15-37); Alanine Aminotransfer ALT/SGPT 72 U/L (16-61); Albumin, Serum 3.2 g/dL (3.2-5.0); Alkaline Phosphatase 68 U/L (45-117); Bilirubin, Direct 0.14 mg/dL (0.00-0.30); Globulin 4.2 g/dL (2.2-4.2); Protein, Total 7.4 g/dL (6.4-8.2)
[2017-08-24] MEDS: Ondansetron 4 MG/2 ML Vial IV ×2 (07:16→15:31)
--- NOTE | 2017-08-24 07:21 | SLEEP ---
Per [employer] online,Patient is compliant with his home bipap therapy at a setting of .
[2017-08-24 07:55] VITALS: O2SAT 95
[2017-08-24 08:13] VITALS: BP 91/56; PULSE 74; RESP 20; TEMP 36.7; O2SAT 92
[2017-08-24] MEDS: Heparin Injection 5,000 UNITS/ML Syringe 15000 UNITS IV (08:25)
[2017-08-24] MEDS: Pantoprazole Sodium 20 MG Tablet PO ×2 (08:30→22:22)
[2017-08-24] MEDS: Sertraline 50 MG Tablet PO (08:30)
[2017-08-24] MEDS: Varenicline 0.5 MG Tablet PO ×2 (08:31→22:22)
[2017-08-24] MEDS: Gabapentin 600 MG Tablet PO ×3 (08:31→17:10)
[2017-08-24] MEDS: Docusate Sodium 100 MG Capsule PO ×2 (08:31→22:22)
[2017-08-24] MEDS: HEPARIN/D5w 25,000 UNITS 25,000 UNITS/250 ML IV.SOLN. 22 UNITS IV (08:41)
[2017-08-24 08:42] LABS: Absolute Lymphocyte Count 3.06 X10^3/ul (0.83-4.51); Absolute Neutrophil Count 5.4 X10^3/uL (2.0-7.7); Basophil# 0.09 X10^3/uL; Basophil% 0.9 % (0-1); Eosinophil# 0.19 X10^3/uL; Eosinophils% 1.9 % (0-5); Hematocrit 43.6 % (40-54); Hemoglobin 14.4 g/dl (13.0-16.5); Lymphocyte # 3.06 X10^3/ul (4.0); Lymphocyte % 30.8 % (19-41); Mean Corpuscular Hgb 31.7 pg (27.0-32.0); Mean Platelet Vol. 10.4 fl (6.2-12.0); Monocyte# 1.19 X10^3/uL; Neutrophil # 5.38 X10^3/uL (2.7-7.7); Neutrophil % 54.1 % (47-70); Platelet Count 304 K/mm3 (150-450); RBC Distribution Width CV 13.6 % (11.6-14.6); RBC Distribution Width SD 46.6 fl (35.1-43.9); Red Blood Count 4.54 M/mm3 (4.6-6.2); White Blood Count 9.9 K/mm3 (4.4-11.0)
[2017-08-24 08:43] LABS: International Normalized Ratio 1.2; Partial Thromboplast Time 35.2 Seconds (24.1-36.2); Prothrombin Time (Protime)PT. 15.6 SECONDS (11.7-14.9)
[2017-08-24 09:07] LABS: POSITIVE COUNT NO; POSITIVE DIFFERENTIAL NO; POSITIVE MORPHOLOGY NO
[2017-08-24] MEDS: Lisinopril 10 MG Tablet PO (09:52)
[2017-08-24] MEDS: Furosemide 20 MG Tablet PO ×2 (09:53→09:54)
[2017-08-24 12:10] LABS: Bedside Glucose 124 mg/dL (70-110)
--- NOTE | 2017-08-24 14:17 | CASEMGMT ---
MARTY LEOS ASSESSMENT COMPLETE. See attached link for full assessment. 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 The patient reports he will be unable to go home at discharge due to inability to get into and out of car and home. Per patient, will go for surgery in a couple weeks. MARTY LEOS notes patient has not been evaluated by PT/OT. MARTY LEOS notifies SW of potential placement for rehab until surgery due to patient's inability to manage at home. SW agrees to see patient tomorrow to follow-up. CLARA Jin, RN-BC, CCM
[2017-08-24 14:25] VITALS: BP 106/58; PULSE 73; RESP 20; TEMP 37.1; O2SAT 94
[2017-08-24 14:36] LABS: Partial Thromboplast Time 36.5 Seconds (24.1-36.2)
--- NOTE | 2017-08-24 16:54 | PCM.PN.HOSP ---
Subjective: Patient has complex fracture of distal right femur with extension to femoral condyle leading to intra-articular knee joint. Patient complain of pain. Orthopedic surgeon recommended no urgent surgery but pain control. Vitals/I&O's: Vital Signs Temp Pulse Resp BP Pulse Ox 98.7 F 73 20 H 106/58 L 94 08/24/17 14:25 08/24/17 14:25 08/24/17 14:25 08/24/17 14:25 08/24/17 14:25 Oxygen Delivery Method Room Air Weight: 402 lb 5.498 oz Body Mass Index (BMI) 56.1 Intake and Output for Last 24 Hours 08/22/17 08/23/17 08/24/17 23:59 23:59 23:59 Intake Total 950 / 950 Output Total 2350 / 2350 Balance -1400 / -1400 General: Alert, Oriented x3, Cooperative HEENT: Atraumatic, PERRLA, EOMI, Normocephalic Neck: Supple, No JVD, Negative Carotid Bruits Lungs: Clear to auscultation, No rhonchi, No wheeze, Diminished Cardiovascular: Regular rate, Regular Rhythm, Normal S1, Normal S2, No murmurs Abdomen: Bowel Sounds Present, Soft, Non Tender, Non-Distended Extremities: No edema, Capillary Refill Less than 3 Seconds Skin: No rashes, No breakdown Musculoskeletal: Tenderness, - - Right thigh and knee on the crib bandage and on splint Neurological: Cranial nerves II-XII grossly intact Psych/Mental Status: Normal Affect, Appropriate Laboratory Results 08/23/17 20:49: POC Glucose 121 H 08/24/17 06:13: Total Bilirubin 0.60, Direct Bilirubin 0.14, AST 83 H, ALT 72 H, Alkaline Phosphatase 68, Total Protein 7.4, Albumin 3.2, Globulin 4.2 08/24/17 06:13: Hemoglobin A1c 8.0 H 08/24/17 06:28: POC Glucose 108 08/24/17 07:50: WBC 9.9, RBC 4.54 L, Hgb 14.4, Hct 43.6, MCV 96.0 H, MCH 31.7, MCHC 33.0, RDW 13.6, RDW Differential 46.6 H, Plt Count 304, MPV 10.4, Immature Gran % (Auto) 0.300, Neut % (Auto) 54.1, Lymph % (Auto) 30.8, [place] % (Auto) 12.0 H, Eos % (Auto) 1.9, Baso % (Auto) 0.9, Absolute Neuts (auto) 5.4, Absolute Lymphs (auto) 3.06, Total Counted Not Reportable 08/24/17 07:50: PT 15.6 H, INR 1.2, APTT 35.2 08/24/17 11:56: POC Glucose 124 H 08/24/17 14:15: APTT 36.5 H Current Medications Acetaminophen (Tylenol) 650 mg PO Q6H PRN PRN PRN Reason: Fever, headache, pain Last Admin: 08/24/17 06:29 Dose: 650 mg Albuterol Sulfate (Ventolin Aerosols) 2.5 mg INHALATION Q4H PRN PRN PRN Reason: Shortness of breath, wheezing Cyclobenzaprine HCl (Flexeril) 10 mg PO TID PRN PRN Reason: PAIN Last Admin: 08/24/17 06:29 Dose: 10 mg Dextrose (D50w Syringe) 0 gm IV X1 PRN; Protocol PRN Reason: Hypoglycemia Docusate Sodium (Colace) 100 mg PO BID [facility] Last Admin: 08/24/17 08:31 Dose: 100 mg Furosemide (Lasix) 20 mg PO DAILY [facility] Last Admin: 08/24/17 09:54 Dose: 20 mg Gabapentin (Neurontin) 600 mg PO TIDCM [facility] Last Admin: 08/24/17 11:59 Dose: 600 mg Glucagon () 1 mg IM .X1 PRN PRN Reason: Hypoglycemia Hydromorphone HCl (Dilaudid) 1 mg IV Q3H PRN PRN PRN Reason: SEVERE PAIN (6-10/10) Last Admin: 08/24/17 15:31 Dose: 1 mg Insulin Aspart (Novolog Flexpen (Bkc)) 0 units SC ACHS [facility] PRN Reason: Protocol Last Admin: 08/24/17 11:58 Dose: Not Given Insulin Detemir (Levemir (Bkc)) 20 units SC BID [facility] Last Admin: 08/24/17 09:53 Dose: 20 units Lisinopril (Zestril) 10 mg PO DAILY [facility] Last Admin: 08/24/17 09:52 Dose: 10 mg Lorazepam (Ativan) 1 mg PO HS [facility] Magnesium Hydroxide (Milk Of Magnesia) 30 ml PO DAILY PRN PRN PRN Reason: Constipation Metoprolol Tartrate (Lopressor (Beta Dylan)) 25 mg PO BID [facility] Ondansetron HCl (Zofran) 4 mg IV Q6H PRN PRN PRN Reason: NAUSEA/VOMITING Last Admin: 08/24/17 15:31 Dose: 4 mg Oxycodone HCl (Oxyir) 10 mg PO Q4H PRN PRN PRN Reason: SEVERE PAIN (6-10/10) Last Admin: 08/24/17 10:52 Dose: 10 mg Pantoprazole Sodium (Protonix) 20 mg PO BID [facility] Last Admin: 08/24/17 08:30 Dose: 20 mg Rivaroxaban (Xarelto) 15 mg PO DAILY [facility] Sertraline HCl (Zoloft) 50 mg PO DAILY [facility] Last Admin: 08/24/17 08:30 Dose: 50 mg Sodium Chloride () 5 - 30 ml IV UD PRN PRN Reason: SALINE FLUSH Last Admin: 08/24/17 15:31 Dose: 10 ml Varenicline (Chantix) 0.5 mg PO BID [facility] Last Admin: 08/24/17 08:31 Dose: 0.5 mg Assessment/Plan This is a 46 years old male patient presented to the medicine because of mechanical fall and right knee pain, found to have acute traumatic distal right hip fracture and is being admitted for pain control and evaluation by orthopedic surgery. #1 acute traumatic right distal fracture of the medial femoral condyle with extension to the intercondylar region: Due to mechanical fall. X-ray of the right femur reviewed. Other imaging studies including x-ray of the pelvis, tibia and fibula, chest x-ray and x-ray of the right knee reviewed and findings noted which is only distal right femur fracture. CT of right knee without contrast reviewed and discussed with the patient. There is no other fracture except as mentioned above including normal medial tibial plateau and lateral femoral condyle and lateral tibial plateau. Plan: Admit to MedSurg floor, bedrest, IV morphine as needed for pain, IV OxyIR as needed for pain, IV fluids, IV antiemetics, orthopedic surgery consult, PT OT evaluation and treatment. #2 hypertension: Blood pressure stable, continue atenolol, lisinopril and HCTZ. #3 type 2 diabetes mellitus: Blood sugar stable, ADA diet, Accu-Cheks, insulin sliding scale, continue Levemir insulin twice daily and metformin. #4 history of pulmonary embolism: Continue Xarelto. #5 hematuria: Patient complained of hematuria that has been going on for few weeks on review of systems. At this time, he urinated twice in the ER and his urine was clean. Recommended follow-up with urology as outpatient. #6 tobacco abuse: Continue Chantix when dose updated. #7 obstructive sleep apnea: Not sure if patient is on CPAP at home. At this time, pulse ox is normal on room air. #8 DVT prophylaxis: Continue Xarelto. Other chronic medical problems: Stable, continue home medications. #1 GERD. #2 history of cardiac arrest. #3 morbid obesity. #4 chronic back pain. #5 anxiety/depression. Code Visit Inpatient E&M: 58944 Subs Hosp L3
--- NOTE | 2017-08-24 17:00 | PN_ITS ---
Subjective: Patient has complex fracture of distal right femur with extension to femoral condyle leading to intra-articular knee joint. Patient complain of pain. Orthopedic surgeon recommended no urgent surgery but pain control. Vitals/I&O's: Vital Signs Temp Pulse Resp BP Pulse Ox 98.7 F 73 20 H 106/58 L 94 08/24/17 14:25 08/24/17 14:25 08/24/17 14:25 08/24/17 14:25 08/24/17 14:25 Oxygen Delivery Method Room Air Weight: 402 lb 5.498 oz Body Mass Index (BMI) 56.1 Intake and Output for Last 24 Hours 08/22/17 08/23/17 08/24/17 23:59 23:59 23:59 Intake Total 950 / 950 Output Total 2350 / 2350 Balance -1400 / -1400 General: Alert, Oriented x3, Cooperative HEENT: Atraumatic, PERRLA, EOMI, Normocephalic Neck: Supple, No JVD, Negative Carotid Bruits Lungs: Clear to auscultation, No rhonchi, No wheeze, Diminished Cardiovascular: Regular rate, Regular Rhythm, Normal S1, Normal S2, No murmurs Abdomen: Bowel Sounds Present, Soft, Non Tender, Non-Distended Extremities: No edema, Capillary Refill Less than 3 Seconds Skin: No rashes, No breakdown Musculoskeletal: Tenderness, - - Right thigh and knee on the crib bandage and on splint Neurological: Cranial nerves II-XII grossly intact Psych/Mental Status: Normal Affect, Appropriate Laboratory Results 08/23/17 20:49: POC Glucose 121 H 08/24/17 06:13: Total Bilirubin 0.60, Direct Bilirubin 0.14, AST 83 H, ALT 72 H , Alkaline Phosphatase 68, Total Protein 7.4, Albumin 3.2, Globulin 4.2 08/24/17 06:13: Hemoglobin A1c 8.0 H 08/24/17 06:28: POC Glucose 108 08/24/17 07:50: WBC 9.9, RBC 4.54 L, Hgb 14.4, Hct 43.6, MCV 96.0 H, MCH 31.7, MCHC 33.0, RDW 13.6, RDW Differential 46.6 H, Plt Count 304, MPV 10.4, Immature Gran % (Auto) 0.300, Neut % (Auto) 54.1, Lymph % (Auto) 30.8, [place] % (Auto) 12.0 H, Eos % (Auto) 1.9, Baso % (Auto) 0.9, Absolute Neuts (auto) 5.4, Absolute Lymphs (auto) 3.06, Total Counted Not Reportable 08/24/17 07:50: PT 15.6 H, INR 1.2, APTT 35.2 08/24/17 11:56: POC Glucose 124 H 08/24/17 14:15: APTT 36.5 H Current Medications Acetaminophen (Tylenol) 650 mg PO Q6H PRN PRN PRN Reason: Fever, headache, pain Last Admin: 08/24/17 06:29 Dose: 650 mg Albuterol Sulfate (Ventolin Aerosols) 2.5 mg INHALATION Q4H PRN PRN PRN Reason: Shortness of breath, wheezing Cyclobenzaprine HCl (Flexeril) 10 mg PO TID PRN PRN Reason: PAIN Last Admin: 08/24/17 06:29 Dose: 10 mg Dextrose (D50w Syringe) 0 gm IV X1 PRN; Protocol PRN Reason: Hypoglycemia Docusate Sodium (Colace) 100 mg PO BID [facility] Last Admin: 08/24/17 08:31 Dose: 100 mg Furosemide (Lasix) 20 mg PO DAILY [facility] Last Admin: 08/24/17 09:54 Dose: 20 mg Gabapentin (Neurontin) 600 mg PO TIDCM [facility] Last Admin: 08/24/17 11:59 Dose: 600 mg Glucagon () 1 mg IM .X1 PRN PRN Reason: Hypoglycemia Hydromorphone HCl (Dilaudid) 1 mg IV Q3H PRN PRN PRN Reason: SEVERE PAIN (6-10/10) Last Admin: 08/24/17 15:31 Dose: 1 mg Insulin Aspart (Novolog Flexpen (Bkc)) 0 units SC ACHS [facility] PRN Reason: Protocol Last Admin: 08/24/17 11:58 Dose: Not Given Insulin Detemir (Levemir (Bkc)) 20 units SC BID [facility] Last Admin: 08/24/17 09:53 Dose: 20 units Lisinopril (Zestril) 10 mg PO DAILY [facility] Last Admin: 08/24/17 09:52 Dose: 10 mg Lorazepam (Ativan) 1 mg PO HS [facility] Magnesium Hydroxide (Milk Of Magnesia) 30 ml PO DAILY PRN PRN PRN Reason: Constipation Metoprolol Tartrate (Lopressor (Beta Dylan)) 25 mg PO BID [facility] Ondansetron HCl (Zofran) 4 mg IV Q6H PRN PRN PRN Reason: NAUSEA/VOMITING Last Admin: 08/24/17 15:31 Dose: 4 mg Oxycodone HCl (Oxyir) 10 mg PO Q4H PRN PRN PRN Reason: SEVERE PAIN (6-10/10) Last Admin: 08/24/17 10:52 Dose: 10 mg Pantoprazole Sodium (Protonix) 20 mg PO BID [facility] Last Admin: 08/24/17 08:30 Dose: 20 mg Rivaroxaban (Xarelto) 15 mg PO DAILY [facility] Sertraline HCl (Zoloft) 50 mg PO DAILY [facility] Last Admin: 08/24/17 08:30 Dose: 50 mg Sodium Chloride () 5 - 30 ml IV UD PRN PRN Reason: SALINE FLUSH Last Admin: 08/24/17 15:31 Dose: 10 ml Varenicline (Chantix) 0.5 mg PO BID [facility] Last Admin: 08/24/17 08:31 Dose: 0.5 mg Assessment/Plan This is a 46 years old male patient presented to the medicine because of mechanical fall and right knee pain, found to have acute traumatic distal right hip fracture and is being admitted for pain control and evaluation by orthopedic surgery. #1 acute traumatic right distal fracture of the medial femoral condyle with extension to the intercondylar region: Due to mechanical fall. X-ray of the right femur reviewed. Other imaging studies including x-ray of the pelvis, tibia and fibula, chest x-ray and x-ray of the right knee reviewed and findings noted which is only distal right femur fracture. CT of right knee without contrast reviewed and discussed with the patient. There is no other fracture except as mentioned above including normal medial tibial plateau and lateral femoral condyle and lateral tibial plateau. Plan: Admit to MedSurg floor, bedrest, IV morphine as needed for pain, IV OxyIR as needed for pain, IV fluids , IV antiemetics, orthopedic surgery consult, PT OT evaluation and treatment. #2 hypertension: Blood pressure stable, continue atenolol, lisinopril and HCTZ. #3 type 2 diabetes mellitus: Blood sugar stable, ADA diet, Accu-Cheks, insulin sliding scale, continue Levemir insulin twice daily and metformin. #4 history of pulmonary embolism: Continue Xarelto. #5 hematuria: Patient complained of hematuria that has been going on for few weeks on review of systems. At this time, he urinated twice in the ER and his urine was clean. Recommended follow-up with urology as outpatient. #6 tobacco abuse: Continue Chantix when dose updated. #7 obstructive sleep apnea: Not sure if patient is on CPAP at home. At this time, pulse ox is normal on room air. #8 DVT prophylaxis: Continue Xarelto. Other chronic medical problems: Stable, continue home medications. #1 GERD. #2 history of cardiac arrest. #3 morbid obesity. #4 chronic back pain. #5 anxiety/depression. Code Visit Inpatient E&M: 00413 Subs Hosp L3
[2017-08-24 17:05] LABS: Bedside Glucose 78 mg/dL (70-110)
--- NOTE | 2017-08-24 17:10 | CASEMGMT ---
Social Work Referral date: 08/24/17; First encounter with patient: 08/24/17. Reason for referral: Discharge planning, long term home placement. Spoke with patient and patient family in room. This oncology social work introduced self as well as social work role. Patient currently lives with spouse and is voicing to be unable to return home at this time due to debility. Therapy currently recommending a long term home placement. Patient reporting to have had a stay at [facility] before and to be interested in looking into placement again. Support given. Telephone call to Louisa Moise. This oncology social work making referral - no admissions personal in at this time. Clinical information faxed. Social Work to follow up with. Ilana DOWNING, MUSHROOM SORTER GRADER
[2017-08-24 17:11] VITALS: PULSE 73
[2017-08-24] MEDS: Rivaroxaban 15 MG Tablet PO (17:11)
[2017-08-24] MEDS: Metoprolol Tartrate 25 MG Tablet PO (17:11)
--- NOTE | 2017-08-24 17:51 | CON.PCM_ITS ---
Reason for Consult Date of Consultation: 08/24/17 History of Present Illness: The patient is a 46 year old male with multiple medical problems that reportedly fell in an [employer] store in [place] yesterday. His foot slipped. He injured his right knee. He was not able to walk. Knee pain and swelling. He has had previous right hip replacement surgery. He does not feel he altered that. He complains of right knee pain and swelling that is significant. Denies numbness or tingling that is new. Does have diabetes. Both feet feel cool to him. [] Past Medical History Past Medical History (Chronic Problems): Chronic Problems (Last Updated 08/23/17 @ 19:01 by Ruben Hilario MD) UTI (urinary tract infection) (Chronic) DM type 2 (diabetes mellitus, type 2) (Chronic) Premature ventricular contraction (Chronic) Tachycardia (Chronic) Dyspnea (Chronic) KHALIF (obstructive sleep apnea) (Chronic) Tobacco dependence in remission (Chronic) Restrictive lung disease (Chronic) Pulmonary HTN (Chronic) Hypertension (Chronic) Obesity (Chronic) GERD (Chronic) VTE (venous thromboembolism) (Chronic) Morbid obesity (Chronic) Pulmonary embolism (Chronic) DVT (deep venous thrombosis) (Chronic) RLE Tear of medial meniscus of left knee (Chronic) Left ventricular hypertrophy (Chronic) Tricuspid regurgitation (Chronic) Lumbosacral spondylosis (Chronic) Degeneration of lumbosacral intervertebral disc (Chronic) Lumbosacral radiculopathy (Chronic) Allergies quinine Allergy (Verified 08/23/17 16:17) Hives Home Medications: Ambulatory Orders Medication Instructions Recorded Potassium 99 mg PO DAILY 08/07/17 Albuterol IH (ProAir) [Proair Hfa] 2 puff INHALATION Q4H PRN PRN #1 08/09/17 inhaler Atenolol [Tenormin (beta tamar)] 50 mg PO BID #120 tab 08/09/17 Cyclobenzaprine [Flexeril] 10 mg PO TID PRN #30 tab 08/09/17 Furosemide [Lasix] 20 mg PO DAILY #60 tab 08/09/17 Insulin Detemir [Levemir FlexPen] 20 units SC BID #60 insuln.pen 08/09/17 Lisinopril/Hydrochlorothiazide 1 tab PO DAILY #60 tab 08/09/17 [Zestoretic 03/23.5 Tablet] Lorazepam [Ativan] 1 mg PO DAILY #30 tab 08/09/17 Omeprazole [Prilosec] 20 mg PO BID #120 cap 08/09/17 Sertraline HCl [Zoloft] 50 mg PO DAILY #60 tab 08/09/17 Gabapentin [Neurontin] 600 mg PO TIDCM 08/23/17 Metformin HCl [Glucophage] 1,000 mg PO BIDCM 08/23/17 Rivaroxaban [Xarelto] 15 mg PO DAILY 08/23/17 Varenicline Tartrate [Chantix] 0.5 mg PO BID 08/23/17 Surgical History: appendectomy, total hip arthroplasty, total knee arthroplasty , - - Appendectomy, chest surgery for removal of organized clot under rib cage, heart catheterization, left foot reconstructive surgery, left knee arthroscopy Psychiatric History: No pertinent psych hx Lives: With Family Smoking Status: Former smoker Alcohol: None Drugs: None - *Family History Maternal History Items: Heart Disease Paternal History Items: Heart Disease Objective: Right knee is in a knee immobilizer. Right knee has swelling consistent with his injury. Knee was not stressed. Pain on palpation of medial knee. No calf pain. Good ability to plantarflex and dorsiflex toes and ankles bilaterally. Normal sensation equal of both feet. Both feet feel slightly cool but equally so. Pulses are intact to both feet. No pain at the thigh. No pain at the right hip. No right hip deformity noted. Knee immobilizer was on, opened for exam, reapplied. No pain at the left hip knee or leg. X-rays reviewed right knee showing a medial femoral condyle fracture not significantly displaced. CT right knee reviewed again showing a medial femoral condyle shear type fracture in reasonable position. Notes from hospitalist reviewed. Vital signs and laboratory work reviewed. - Physical Exam Vital Signs Temp Pulse Resp BP Pulse Ox 98.7 F 73 20 H 106/58 L 94 08/24/17 14:25 08/24/17 17:11 08/24/17 14:25 08/24/17 14:25 08/24/17 14:25 Oxygen Delivery Method Room Air Weight: 182.5 kg Body Mass Index (BMI) 56.1 Intake and Output for Last 24 Hours 08/22/17 08/23/17 08/24/17 23:59 23:59 23:59 Intake Total 1962 Output Total 4300 / 4300 Balance -2337 / -2337 Laboratory Tests Past 24 Hrs 08/24/17 08/24/17 08/24/17 06:13 06:13 07:50 WBC 9.9 RBC 4.54 L Hgb 14.4 Hct 43.6 MCV 96.0 H MCH 31.7 MCHC 33.0 RDW 13.6 RDW Differential 46.6 H Plt Count 304 MPV 10.4 Immature Gran % (Auto) 0.300 Neut % (Auto) 54.1 Lymph % (Auto) 30.8 [place] % (Auto) 12.0 H Eos % (Auto) 1.9 Baso % (Auto) 0.9 Absolute Neuts (auto) 5.4 Absolute Lymphs (auto) 3.06 Total Counted Not Reportable PT INR APTT Hemoglobin A1c 8.0 H Total Bilirubin 0.60 Direct Bilirubin 0.14 AST 83 H ALT 72 H Alkaline Phosphatase 68 Total Protein 7.4 Albumin 3.2 Globulin 4.2 08/24/17 08/24/17 07:50 14:15 WBC RBC Hgb Hct MCV MCH MCHC RDW RDW Differential Plt Count MPV Immature Gran % (Auto) Neut % (Auto) Lymph % (Auto) [place] % (Auto) Eos % (Auto) Baso % (Auto) Absolute Neuts (auto) Absolute Lymphs (auto) Total Counted PT 15.6 H INR 1.2 APTT 35.2 36.5 H Hemoglobin A1c Total Bilirubin Direct Bilirubin AST ALT Alkaline Phosphatase Total Protein Albumin Globulin POC Glucose 08/24/17 08/24/17 08/24/17 16:54 11:56 06:28 POC Glucose 78 124 H 108 08/23/17 20:49 POC Glucose 121 H Assessment/Plan Right distal femoral fracture in reasonable position. Continue knee immobilizer. Continue nonweightbearing right knee. Ice if needed. Possibility of fracture displacement discussed. If there is significant fracture displacement or nonunion, surgery could be considered. Patient known by Dr. Rodriguez. Dr. Rodriguez has reviewed his films. Dr. Rodriguez would like to see him in the office in 2 weeks. Xrays Will be obtained then. Continue with medical management otherwise. Do not recommend knee flexion or weightbearing at this point. Patient understands and agrees with our treatment plan. Multiple medical problems, management per hospitalist service
[2017-08-24 22:15] VITALS: BP 115/69; PULSE 87; RESP 18; TEMP 37.4; O2SAT 96
[2017-08-24] MEDS: LORazepam 1 MG Tablet PO (22:21)
--- NOTE | 2017-08-24 22:30 | CPS ---
pts family brought personal BIPAP unit in.
[2017-08-24] MEDS: Menthol/Lanolin/Calamine/Znox 113 GM Tube 1 APPLIC TOPICAL (22:40)
[2017-08-24 22:46] LABS: Bedside Glucose 104 mg/dL (70-110)
[2017-08-25 06:23] LABS: Absolute Lymphocyte Count 2.91 X10^3/ul (0.83-4.51); Absolute Neutrophil Count 4.3 X10^3/uL (2.0-7.7); Basophil# 0.04 X10^3/uL; Basophil% 0.5 % (0-1); Eosinophil# 0.14 X10^3/uL; Eosinophils% 1.7 % (0-5); Hematocrit 41.2 % (40-54); Hemoglobin 13.8 g/dl (13.0-16.5); Lymphocyte # 2.91 X10^3/ul (4.0); Lymphocyte % 34.5 % (19-41); Mean Corp Hgb Conc 33.5 g/gl (32-36); Mean Corpuscular Hgb 32.2 pg (27.0-32.0); Mean Corpuscular Volume 96.3 fL (80-94); Mean Platelet Vol. 10.2 fl (6.2-12.0); Monocyte# 0.98 X10^3/uL; Monocyte% 11.6 % (0-10); Neutrophil # 4.34 X10^3/uL (2.7-7.7); Neutrophil % 51.5 % (47-70); Platelet Count 246 K/mm3 (150-450); RBC Distribution Width CV 13.4 % (11.6-14.6); RBC Distribution Width SD 46.2 fl (35.1-43.9); Red Blood Count 4.28 M/mm3 (4.6-6.2); White Blood Count 8.4 K/mm3 (4.4-11.0)
[2017-08-25 06:27] LABS: POSITIVE COUNT NO; POSITIVE DIFFERENTIAL NO; POSITIVE MORPHOLOGY NO
[2017-08-25] MEDS: oxyCODONE 5 MG Tablet 10 MG PO ×4 (06:34→22:08)
[2017-08-25] MEDS: Acetaminophen 325 MG Tablet 650 MG PO ×2 (06:34→22:07)
[2017-08-25 06:38] VITALS: BP 119/69; PULSE 89; RESP 18; TEMP 37.4; O2SAT 98
[2017-08-25 06:50] LABS: Bedside Glucose 113 mg/dL (70-110)
[2017-08-25 06:50] LABS: Anion Gap 7 (5-15); BUN 14 mg/dL (7-18); Calcium,Total 8.3 mg/dL (8.5-10.1); Chloride 102 mmol/L (98-107); Creatinine, Serum 1.08 mg/dL (0.70-1.30); EST Glomerular Filtration Rate 78 mL/min (>60); Est Glom Filt Rate - Afr Amer 94 mL/min (>60); Estimated Creatinine Clearance 90.06 ml/min; Glucose 95 mg/dL (74-106); Potassium 3.7 mmol/L (3.5-5.1); Sodium Level 136 mmol/L (136-145)
[2017-08-25 07:56] VITALS: BP 111/60; PULSE 90; RESP 20; TEMP 37.1; O2SAT 93
[2017-08-25] MEDS: 0.9% NaCl Peripheral Flush Adult/Peds IV ×3 (08:06→13:07)
[2017-08-25] MEDS: HYDROmorphone 1 MG/ML Syringe IV ×5 (08:06→23:13)
[2017-08-25] MEDS: Pantoprazole Sodium 20 MG Tablet PO ×2 (08:07→22:32)
[2017-08-25] MEDS: Gabapentin 600 MG Tablet PO ×3 (08:07→16:25)
[2017-08-25] MEDS: Docusate Sodium 100 MG Capsule PO ×2 (08:08→22:30)
[2017-08-25] MEDS: Sertraline 50 MG Tablet PO (08:08)
[2017-08-25] MEDS: Furosemide 20 MG Tablet PO (08:08)
[2017-08-25 08:09] VITALS: PULSE 90
[2017-08-25] MEDS: Metoprolol Tartrate 25 MG Tablet PO ×2 (08:09→22:31)
[2017-08-25] MEDS: Varenicline 0.5 MG Tablet PO ×2 (08:09→22:30)
[2017-08-25] MEDS: Rivaroxaban 15 MG Tablet PO (08:10)
[2017-08-25] MEDS: Ondansetron 4 MG/2 ML Vial IV ×2 (08:19→16:24)
[2017-08-25] MEDS: Menthol/Lanolin/Calamine/Znox 113 GM Tube 1 APPLIC TOPICAL ×2 (09:46→22:29)
--- NOTE | 2017-08-25 11:34 | CASEMGMT ---
[facility] can't take patient. ASHLEY met with client to see what other nursing homes he would be interested in. SW provided patient with list of nursing homes that can take his insurance. Patient reports that he would like to try [facility] as he has a granddaughter that works there. SW faxed referral to [facility]. Will continue to follow. Susanna Aguilar, MIXER DIAMOND POWDER, PROCESSING REP
[2017-08-25 11:50] LABS: Bedside Glucose 99 mg/dL (70-110)
[2017-08-25 13:56] VITALS: BP 113/72; PULSE 84; RESP 20; TEMP 36.8; O2SAT 94
--- NOTE | 2017-08-25 14:08 | CASEMGMT ---
[facility] unable to accept patient. ASHLEY met with client and client's to inform them of this and asked which other nursing homes they would like to try. Patient and his states that they would like to try [facility], [facility], or [facility]. ASHLEY called [facility] and spoke with Rafy. Per, Rafy they are unable to accommodate patient. ASHLEY then called [facility] and spoke with Christie who reports that they are unable to accomodate patient. ASHLEY called [facility] and spoke with Chantal. Chantal states that she would like a referral sent over. ASHLEY faxed referral to [facility]. Susanna Aguilar, REINSURANCE CLAIMS ANALYST, SOCIAL SERVICES MANAGER.
--- NOTE | 2017-08-25 14:29 | PCM.PN.HOSP ---
Subjective: Patient was seen by orthopedic surgeon. Still has severe pain even on mild change of position from supine to lateral. On nonweightbearing. Morbid obesity Vitals/I&O's: Vital Signs Temp Pulse Resp BP Pulse Ox 98.8 F 90 20 H 111/60 93 08/25/17 07:56 08/25/17 08:09 08/25/17 07:56 08/25/17 07:56 08/25/17 07:56 Oxygen Delivery Method Room Air Weight: 402 lb 5.498 oz Body Mass Index (BMI) 56.1 Intake and Output for Last 24 Hours 08/23/17 08/24/17 08/25/17 23:59 23:59 23:59 Intake Total 1962 / 1962 500 / 500 Output Total 4700 / 4700 1850 / 1850 Balance -2737 / -2737 -1350 / -1350 General: Alert, Oriented x3, Cooperative HEENT: Atraumatic, PERRLA, EOMI, Normocephalic Neck: Supple, No JVD, Negative Carotid Bruits Lungs: Clear to auscultation, No rhonchi, No wheeze, No rales, Diminished Cardiovascular: Regular rate, Regular Rhythm, Normal S1, Normal S2, No murmurs Abdomen: Bowel Sounds Present, Soft, Non Tender, Non-Distended Extremities: No edema, Capillary Refill Less than 3 Seconds Skin: No rashes, No breakdown Musculoskeletal: Arthritic Changes, Tenderness Neurological: Cranial nerves II-XII grossly intact, Neuro grossly intact Psych/Mental Status: Normal Affect, Appropriate Laboratory Results 08/24/17 14:15: APTT 36.5 H 08/24/17 16:54: POC Glucose 78 08/24/17 22:27: POC Glucose 104 08/25/17 05:37: WBC 8.4, RBC 4.28 L, Hgb 13.8, Hct 41.2, MCV 96.3 H, MCH 32.2 H, MCHC 33.5, RDW 13.4, RDW Differential 46.2 H, Plt Count 246, MPV 10.2, Immature Gran % (Auto) 0.200, Neut % (Auto) 51.5, Lymph % (Auto) 34.5, [place] % (Auto) 11.6 H, Eos % (Auto) 1.7, Baso % (Auto) 0.5, Absolute Neuts (auto) 4.3, Absolute Lymphs (auto) 2.91, Total Counted Not Reportable 08/25/17 05:37: Sodium 136, Potassium 3.7, Chloride 102, Carbon Dioxide 27.0, Anion Gap 7, BUN 14, Creatinine 1.08, Estim Creat Clear Calc 90.06, Est GFR (MDRD) Af Amer 94, Est GFR (MDRD) Non-Af 78, BUN/Creatinine Ratio 13.0, Glucose 95, Calcium 8.3 L 08/25/17 06:33: POC Glucose 113 H 08/25/17 11:43: POC Glucose 99 Current Medications Acetaminophen (Tylenol) 650 mg PO Q6H PRN PRN PRN Reason: Fever, headache, pain Last Admin: 08/25/17 06:34 Dose: 650 mg Albuterol Sulfate (Ventolin Aerosols) 2.5 mg INHALATION Q4H PRN PRN PRN Reason: Shortness of breath, wheezing Calamine/Phenol (Calmoseptine Ointment) 1 applic TOPICAL BID [facility] PRN Reason: Protocol Last Admin: 08/25/17 09:46 Dose: 1 applicatio Cyclobenzaprine HCl (Flexeril) 10 mg PO TID PRN PRN Reason: PAIN Last Admin: 08/25/17 06:34 Dose: 10 mg Dextrose (D50w Syringe) 0 gm IV X1 PRN; Protocol PRN Reason: Hypoglycemia Docusate Sodium (Colace) 100 mg PO BID [facility] Last Admin: 08/25/17 08:08 Dose: 100 mg Furosemide (Lasix) 20 mg PO DAILY [facility] Last Admin: 08/25/17 08:08 Dose: 20 mg Gabapentin (Neurontin) 600 mg PO TIDCM [facility] Last Admin: 08/25/17 11:43 Dose: 600 mg Glucagon () 1 mg IM .X1 PRN PRN Reason: Hypoglycemia Hydromorphone HCl (Dilaudid) 1 mg IV Q3H PRN PRN PRN Reason: SEVERE PAIN (6-10/10) Last Admin: 08/25/17 13:07 Dose: 1 mg Insulin Aspart (Novolog Flexpen (Bkc)) 0 units SC ACHS [facility] PRN Reason: Protocol Last Admin: 08/25/17 11:45 Dose: Not Given Insulin Detemir (Levemir (Bkc)) 20 units SC BID [facility] Last Admin: 08/25/17 09:47 Dose: 20 units Lisinopril (Zestril) 10 mg PO DAILY [facility] Last Admin: 08/25/17 08:04 Dose: Not Given Lorazepam (Ativan) 1 mg PO HS [facility] Last Admin: 08/24/17 22:21 Dose: 1 mg Magnesium Hydroxide (Milk Of Magnesia) 30 ml PO DAILY PRN PRN PRN Reason: Constipation Metoprolol Tartrate (Lopressor (Beta Dylan)) 25 mg PO BID [facility] Last Admin: 08/25/17 08:09 Dose: 25 mg Ondansetron HCl (Zofran) 4 mg IV Q6H PRN PRN PRN Reason: NAUSEA/VOMITING Last Admin: 08/25/17 08:19 Dose: 4 mg Oxycodone HCl (Oxyir) 10 mg PO Q4H PRN PRN PRN Reason: SEVERE PAIN (6-10/10) Last Admin: 08/25/17 11:44 Dose: 10 mg Pantoprazole Sodium (Protonix) 20 mg PO BID [facility] Last Admin: 08/25/17 08:07 Dose: 20 mg Rivaroxaban (Xarelto) 15 mg PO DAILY [facility] Last Admin: 08/25/17 08:10 Dose: 15 mg Sertraline HCl (Zoloft) 50 mg PO DAILY [facility] Last Admin: 08/25/17 08:08 Dose: 50 mg Sodium Chloride () 5 - 30 ml IV UD PRN PRN Reason: SALINE FLUSH Last Admin: 08/25/17 13:07 Dose: 10 ml Varenicline (Chantix) 0.5 mg PO BID [facility] Last Admin: 08/25/17 08:09 Dose: 0.5 mg Assessment/Plan This is a 46 years old male patient presented to the medicine because of mechanical fall and right knee pain, found to have acute traumatic distal right hip fracture and is being admitted for pain control and evaluation by orthopedic surgery. #1 acute traumatic right distal fracture of the medial femoral condyle with extension to the intercondylar region: Due to mechanical fall. X-ray of the right femur reviewed. Other imaging studies including x-ray of the pelvis, tibia and fibula, chest x-ray and x-ray of the right knee reviewed and findings noted which is only distal right femur fracture. CT of right knee without contrast reviewed and discussed with the patient. There is no other fracture except as mentioned above including normal medial tibial plateau and lateral femoral condyle and lateral tibial plateau. Plan: [facility] bedrest, IV morphine as needed for pain, IV OxyIR as needed for pain, IV fluids, IV antiemetics, orthopedic surgery consult by Dr. Vazquez appreciated, PT OT evaluation and treatment. Dr. Vazquez recommended knee immobilizer with nonweightbearing. If there is significant fracture displacement or nonunion, surgery could be considered in the near future. For now plan is discharged to SNF and follow with Dr. Rodriguez in 2 weeks with repeat x-rays then. Knee flexion or weightbearing not recommended. #2 hypertension: Blood pressure stable, continue atenolol, lisinopril and HCTZ. #3 type 2 diabetes mellitus: Blood sugar stable, ADA diet, Accu-Cheks, insulin sliding scale, continue Levemir insulin twice daily and metformin. Blood sugars controlled. #4 history of pulmonary embolism: Continue Xarelto. #5 hematuria: Patient complained of hematuria that has been going on for few weeks on review of systems. At this time, he urinated twice in the ER and his urine was clean. Last UA on August 07, 2017 shows 25-50 RBCs and 50-100 WBC. Repeat UA ordered. #6 tobacco abuse: Continue Chantix when dose updated. #7 obstructive sleep apnea: Not sure if patient is on CPAP at home. At this time, pulse ox is normal on room air. CPAP at night #8 DVT prophylaxis: Continue Xarelto. Other chronic medical problems: Stable, continue home medications. #1 GERD. #2 history of cardiac arrest. #3 morbid obesity. #4 chronic back pain. #5 anxiety/depression. Code Visit Inpatient E&M: 14184 Subs Hosp L3
--- NOTE | 2017-08-25 14:35 | PN_ITS ---
Subjective: Patient was seen by orthopedic surgeon. Still has severe pain even on mild change of position from supine to lateral. On nonweightbearing. Morbid obesity Vitals/I&O's: Vital Signs Temp Pulse Resp BP Pulse Ox 98.8 F 90 20 H 111/60 93 08/25/17 07:56 08/25/17 08:09 08/25/17 07:56 08/25/17 07:56 08/25/17 07:56 Oxygen Delivery Method Room Air Weight: 402 lb 5.498 oz Body Mass Index (BMI) 56.1 Intake and Output for Last 24 Hours 08/23/17 08/24/17 08/25/17 23:59 23:59 23:59 Intake Total 1962 / 1962 500 / 500 Output Total 4700 / 4700 1850 / 1850 Balance -2737 / -2737 -1350 / -1350 General: Alert, Oriented x3, Cooperative HEENT: Atraumatic, PERRLA, EOMI, Normocephalic Neck: Supple, No JVD, Negative Carotid Bruits Lungs: Clear to auscultation, No rhonchi, No wheeze, No rales, Diminished Cardiovascular: Regular rate, Regular Rhythm, Normal S1, Normal S2, No murmurs Abdomen: Bowel Sounds Present, Soft, Non Tender, Non-Distended Extremities: No edema, Capillary Refill Less than 3 Seconds Skin: No rashes, No breakdown Musculoskeletal: Arthritic Changes, Tenderness Neurological: Cranial nerves II-XII grossly intact, Neuro grossly intact Psych/Mental Status: Normal Affect, Appropriate Laboratory Results 08/24/17 14:15: APTT 36.5 H 08/24/17 16:54: POC Glucose 78 08/24/17 22:27: POC Glucose 104 08/25/17 05:37: WBC 8.4, RBC 4.28 L, Hgb 13.8, Hct 41.2, MCV 96.3 H, MCH 32.2 H , MCHC 33.5, RDW 13.4, RDW Differential 46.2 H, Plt Count 246, MPV 10.2, Immature Gran % (Auto) 0.200, Neut % (Auto) 51.5, Lymph % (Auto) 34.5, [place] % ( Auto) 11.6 H, Eos % (Auto) 1.7, Baso % (Auto) 0.5, Absolute Neuts (auto) 4.3, Absolute Lymphs (auto) 2.91, Total Counted Not Reportable 08/25/17 05:37: Sodium 136, Potassium 3.7, Chloride 102, Carbon Dioxide 27.0, Anion Gap 7, BUN 14, Creatinine 1.08, Estim Creat Clear Calc 90.06, Est GFR ( MDRD) Af Amer 94, Est GFR (MDRD) Non-Af 78, BUN/Creatinine Ratio 13.0, Glucose 95, Calcium 8.3 L 08/25/17 06:33: POC Glucose 113 H 08/25/17 11:43: POC Glucose 99 Current Medications Acetaminophen (Tylenol) 650 mg PO Q6H PRN PRN PRN Reason: Fever, headache, pain Last Admin: 08/25/17 06:34 Dose: 650 mg Albuterol Sulfate (Ventolin Aerosols) 2.5 mg INHALATION Q4H PRN PRN PRN Reason: Shortness of breath, wheezing Calamine/Phenol (Calmoseptine Ointment) 1 applic TOPICAL BID [facility] PRN Reason: Protocol Last Admin: 08/25/17 09:46 Dose: 1 applicatio Cyclobenzaprine HCl (Flexeril) 10 mg PO TID PRN PRN Reason: PAIN Last Admin: 08/25/17 06:34 Dose: 10 mg Dextrose (D50w Syringe) 0 gm IV X1 PRN; Protocol PRN Reason: Hypoglycemia Docusate Sodium (Colace) 100 mg PO BID [facility] Last Admin: 08/25/17 08:08 Dose: 100 mg Furosemide (Lasix) 20 mg PO DAILY [facility] Last Admin: 08/25/17 08:08 Dose: 20 mg Gabapentin (Neurontin) 600 mg PO TIDCM [facility] Last Admin: 08/25/17 11:43 Dose: 600 mg Glucagon () 1 mg IM .X1 PRN PRN Reason: Hypoglycemia Hydromorphone HCl (Dilaudid) 1 mg IV Q3H PRN PRN PRN Reason: SEVERE PAIN (6-10/10) Last Admin: 08/25/17 13:07 Dose: 1 mg Insulin Aspart (Novolog Flexpen (Bkc)) 0 units SC ACHS [facility] PRN Reason: Protocol Last Admin: 08/25/17 11:45 Dose: Not Given Insulin Detemir (Levemir (Bkc)) 20 units SC BID [facility] Last Admin: 08/25/17 09:47 Dose: 20 units Lisinopril (Zestril) 10 mg PO DAILY [facility] Last Admin: 08/25/17 08:04 Dose: Not Given Lorazepam (Ativan) 1 mg PO HS [facility] Last Admin: 08/24/17 22:21 Dose: 1 mg Magnesium Hydroxide (Milk Of Magnesia) 30 ml PO DAILY PRN PRN PRN Reason: Constipation Metoprolol Tartrate (Lopressor (Beta Dylan)) 25 mg PO BID [facility] Last Admin: 08/25/17 08:09 Dose: 25 mg Ondansetron HCl (Zofran) 4 mg IV Q6H PRN PRN PRN Reason: NAUSEA/VOMITING Last Admin: 08/25/17 08:19 Dose: 4 mg Oxycodone HCl (Oxyir) 10 mg PO Q4H PRN PRN PRN Reason: SEVERE PAIN (6-10/10) Last Admin: 08/25/17 11:44 Dose: 10 mg Pantoprazole Sodium (Protonix) 20 mg PO BID [facility] Last Admin: 08/25/17 08:07 Dose: 20 mg Rivaroxaban (Xarelto) 15 mg PO DAILY [facility] Last Admin: 08/25/17 08:10 Dose: 15 mg Sertraline HCl (Zoloft) 50 mg PO DAILY [facility] Last Admin: 08/25/17 08:08 Dose: 50 mg Sodium Chloride () 5 - 30 ml IV UD PRN PRN Reason: SALINE FLUSH Last Admin: 08/25/17 13:07 Dose: 10 ml Varenicline (Chantix) 0.5 mg PO BID [facility] Last Admin: 08/25/17 08:09 Dose: 0.5 mg Assessment/Plan This is a 46 years old male patient presented to the medicine because of mechanical fall and right knee pain, found to have acute traumatic distal right hip fracture and is being admitted for pain control and evaluation by orthopedic surgery. #1 acute traumatic right distal fracture of the medial femoral condyle with extension to the intercondylar region: Due to mechanical fall. X-ray of the right femur reviewed. Other imaging studies including x-ray of the pelvis, tibia and fibula, chest x-ray and x-ray of the right knee reviewed and findings noted which is only distal right femur fracture. CT of right knee without contrast reviewed and discussed with the patient. There is no other fracture except as mentioned above including normal medial tibial plateau and lateral femoral condyle and lateral tibial plateau. Plan: [facility], IV morphine as needed for pain, IV OxyIR as needed for pain, IV fluids, IV antiemetics, orthopedic surgery consult by Dr. Vazquez appreciated, PT OT evaluation and treatment. Dr. Vazquez recommended knee immobilizer with nonweightbearing. If there is significant fracture displacement or nonunion, surgery could be considered in the near future. For now plan is discharged to SNF and follow with Dr. Rodriguez in 2 weeks with repeat x-rays then. Knee flexion or weightbearing not recommended. #2 hypertension: Blood pressure stable, continue atenolol, lisinopril and HCTZ. #3 type 2 diabetes mellitus: Blood sugar stable, ADA diet, Accu-Cheks, insulin sliding scale, continue Levemir insulin twice daily and metformin. Blood sugars controlled. #4 history of pulmonary embolism: Continue Xarelto. #5 hematuria: Patient complained of hematuria that has been going on for few weeks on review of systems. At this time, he urinated twice in the ER and his urine was clean. Last UA on August 07, 2017 shows 25-50 RBCs and 50-100 WBC. Repeat UA ordered. #6 tobacco abuse: Continue Chantix when dose updated. #7 obstructive sleep apnea: Not sure if patient is on CPAP at home. At this time, pulse ox is normal on room air. CPAP at night #8 DVT prophylaxis: Continue Xarelto. Other chronic medical problems: Stable, continue home medications. #1 GERD. #2 history of cardiac arrest. #3 morbid obesity. #4 chronic back pain. #5 anxiety/depression. Code Visit Inpatient E&M: 78391 Subs Hosp L3
--- NOTE | 2017-08-25 16:20 | CASEMGMT ---
SW met with patient and his to inform them that [facility] is unable to accept him. SW asked what other facilities they would like to try. They state that they would like to try [facility], [facility], [facility], [facility], and [facility]. SW spoke with Dixie at [facility] and per Dixie they are unable to accommodate. ASHLEY spoke with Cata at [facility] and she states that they are unable to accommodate. SW left a message for Samantha Grissom at [facility] sand asked for her to call OLESYA Corbett, in regards to patient's placement. ASHLEY spoke with OLESYA Corbett and she reports that [facility] will not take patient due to them taking behavioral patients and she states that [facility] will not accept patient either. SW informed patient and his that a facility is not set up yet. Susanna Aguilar, CONSTRUCTION PLANT OPERATOR, PLANT TAXONOMY TEACHER.
--- NOTE | 2017-08-25 16:30 | CASEMGMT ---
When SW met with patient to discuss custodial facilities, patient states that he would like to try [facility] for a possible placement. SW informed him that [facility] will be called to see if they can accommodate him. ASHLEY informed OLESYA Corbett, that patient would like to try [facility] and she states that she will call on Monday to see if they can accommodate him. [facility] number [phone]. OLESYA Corbett will continue to follow. Susanna Aguilar CAFETERIA COUNTER ATTENDANT, RETAIL MAINTENANCE TECHNICIAN.
[2017-08-25 17:06] LABS: Bedside Glucose 102 mg/dL (70-110)
[2017-08-25 19:39] VITALS: BP 107/66; PULSE 97; RESP 18; TEMP 36.3; O2SAT 96
[2017-08-25 21:48] LABS: Bacteria 0 SEEN /hpf (None Seen); Mucous, Urine 0 SEEN /hpf (<or=2+); Squamous Epithelial Cells - UA 0 SEEN /hpf (0-5)
[2017-08-25] MEDS: LORazepam 1 MG Tablet PO (22:29)
[2017-08-25 22:31] VITALS: BP 116/70; PULSE 85
[2017-08-25 22:40] LABS: Bedside Glucose 100 mg/dL (70-110)
[2017-08-25 22:44] LABS: Color, Urine Yellow (Yellow); Glucose, Dipstick Normal (Normal); Ketone-Dipstick Negative (Negative); Leukocyte Esterase-Dipstick 25 /ul (Negative); Nitrite-Dipstick Negative (Negative); Occult Blood-Urine 250 /ul (Negative); Protein-Dipstick Negative (Negative); Specific Gravity, Urine 1.015 (1.002-1.030); Urine Bilirubin Dipstick Negative (Negative); Urine Clarity Sl. Cloudy (Clear); Urine Urobilinogen Normal (Normal)
[2017-08-25 23:05] LABS: Red Blood Cells-Urine 0-5 SEEN /hpf (0-5); White Blood Cells 0-5 SEEN /hpf (0-5)
[2017-08-26] VITALS (7 sets, daily range): BP systolic 111–146; BP diastolic 59–70; PULSE 75–99; RESP 16–20; TEMP 35.8–38.8; O2SAT 92–97
[2017-08-26] MEDS: HYDROmorphone 1 MG/ML Syringe IV ×5 (06:05→21:27)
[2017-08-26 06:56] LABS: Bedside Glucose 114 mg/dL (70-110)
[2017-08-26] MEDS: Acetaminophen 325 MG Tablet 650 MG PO ×2 (07:00→16:02)
[2017-08-26] MEDS: oxyCODONE 5 MG Tablet 10 MG PO ×4 (07:01→20:22)
[2017-08-26] MEDS: Pantoprazole Sodium 20 MG Tablet PO ×2 (08:07→22:36)
[2017-08-26] MEDS: Metoprolol Tartrate 25 MG Tablet PO (08:08)
[2017-08-26] MEDS: Menthol/Lanolin/Calamine/Znox 113 GM Tube 1 APPLIC TOPICAL ×2 (08:09→22:33)
[2017-08-26] MEDS: Gabapentin 600 MG Tablet PO ×3 (08:09→17:19)
[2017-08-26] MEDS: Varenicline 0.5 MG Tablet PO ×2 (08:10→22:33)
[2017-08-26] MEDS: Docusate Sodium 100 MG Capsule PO ×2 (08:10→22:34)
[2017-08-26] MEDS: Rivaroxaban 15 MG Tablet PO (08:10)
[2017-08-26] MEDS: Sertraline 50 MG Tablet PO (08:11)
[2017-08-26] MEDS: 0.9% NaCl Peripheral Flush Adult/Peds IV ×5 (09:58→21:27)
[2017-08-26 12:16] LABS: Bedside Glucose 145 mg/dL (70-110)
--- NOTE | 2017-08-26 13:05 | PCM.PN.HOSP ---
Subjective: Patient right knee pain, although little better but is still has difficulty. On knee immobilizer. Vitals/I&O's: Vital Signs Temp Pulse Resp BP Pulse Ox 98.5 F 81 16 111/59 L 95 08/26/17 07:50 08/26/17 08:08 08/26/17 07:50 08/26/17 07:50 08/26/17 07:50 Oxygen Delivery Method Room Air Weight: 402 lb 5.498 oz Body Mass Index (BMI) 56.1 Intake and Output for Last 24 Hours 08/24/17 08/25/17 08/26/17 23:59 23:59 23:59 Intake Total 1962 / 1962 1010 / 1010 1920 / 1920 Output Total 4700 / 4700 2550 / 2550 2565 / 2565 Balance -2737 / -2737 -1540 / -1540 -645 / -645 General: Alert, Oriented x3, Cooperative HEENT: Atraumatic, PERRLA, EOMI, Normocephalic Neck: Supple, No JVD, Negative Carotid Bruits Lungs: Diminished Cardiovascular: Regular rate, Regular Rhythm, Normal S1, Normal S2, No murmurs, - - Heart rate in 70s-80s Abdomen: Bowel Sounds Present, Soft, Non Tender, Non-Distended Extremities: No edema, Capillary Refill Less than 3 Seconds Skin: No rashes, No breakdown Musculoskeletal: Arthritic Changes, Tenderness - Left knee on immobilizer Neurological: Cranial nerves II-XII grossly intact Psych/Mental Status: Normal Affect, Appropriate Laboratory Results 08/25/17 16:58: POC Glucose 102 08/25/17 19:15: Urine Color Yellow, Urine Clarity Sl. Cloudy, Urine pH 6.0, Ur Specific [place] 1.015, Urine Protein Negative, Urine Glucose (UA) Normal, Urine Ketones Negative, Urine Occult Blood 250 H, Urine Nitrite Negative, Urine Bilirubin Negative, Urine Urobilinogen Normal, Ur Leukocyte Esterase 25 H, Urine RBC 0-5 SEEN, Urine WBC 0-5 SEEN, Ur Squamous Epith Cells 0 SEEN, Urine Bacteria 0 SEEN, Urine Mucus 0 SEEN 08/25/17 22:26: POC Glucose 100 08/26/17 06:44: POC Glucose 114 H 08/26/17 11:59: POC Glucose 145 H Current Medications Acetaminophen (Tylenol) 650 mg PO Q6H PRN PRN PRN Reason: Fever, headache, pain Last Admin: 08/26/17 07:00 Dose: 650 mg Albuterol Sulfate (Ventolin Aerosols) 2.5 mg INHALATION Q4H PRN PRN PRN Reason: Shortness of breath, wheezing Atenolol (Tenormin (Beta Dylan)) 50 mg PO DAILY [facility] Calamine/Phenol (Calmoseptine Ointment) 1 applic TOPICAL BID [facility] PRN Reason: Protocol Last Admin: 08/26/17 08:09 Dose: 1 applicatio Cyclobenzaprine HCl (Flexeril) 10 mg PO TID PRN PRN Reason: PAIN Last Admin: 08/25/17 06:34 Dose: 10 mg Dextrose (D50w Syringe) 0 gm IV X1 PRN; Protocol PRN Reason: Hypoglycemia Docusate Sodium (Colace) 100 mg PO BID [facility] Last Admin: 08/26/17 08:10 Dose: 100 mg Furosemide (Lasix) 20 mg PO DAILY [facility] Last Admin: 08/25/17 08:08 Dose: 20 mg Gabapentin (Neurontin) 600 mg PO TIDCM [facility] Last Admin: 08/26/17 12:00 Dose: 600 mg Glucagon () 1 mg IM .X1 PRN PRN Reason: Hypoglycemia Hydromorphone HCl (Dilaudid) 1 mg IV Q3H PRN PRN PRN Reason: SEVERE PAIN (6-10/10) Last Admin: 08/26/17 09:57 Dose: 1 mg Insulin Aspart (Novolog Flexpen (Bkc)) 0 units SC ACHS [facility] PRN Reason: Protocol Last Admin: 08/26/17 12:00 Dose: Not Given Insulin Detemir (Levemir (Bkc)) 20 units SC BID [facility] Last Admin: 08/26/17 09:58 Dose: 20 units Lisinopril (Zestril) 10 mg PO DAILY [facility] [place] Last Admin: 08/26/17 08:09 Dose: Not Given Lorazepam (Ativan) 1 mg PO HS [facility] Last Admin: 08/25/17 22:29 Dose: 1 mg Magnesium Hydroxide (Milk Of Magnesia) 30 ml PO DAILY PRN PRN PRN Reason: Constipation Ondansetron HCl (Zofran) 4 mg IV Q6H PRN PRN PRN Reason: NAUSEA/VOMITING Last Admin: 08/25/17 16:24 Dose: 4 mg Oxycodone HCl (Oxyir) 10 mg PO Q4H PRN PRN PRN Reason: SEVERE PAIN (6-10/10) Last Admin: 08/26/17 11:59 Dose: 10 mg Pantoprazole Sodium (Protonix) 20 mg PO BID [facility] Last Admin: 08/26/17 08:07 Dose: 20 mg Rivaroxaban (Xarelto) 15 mg PO DAILY [facility] Last Admin: 08/26/17 08:10 Dose: 15 mg Sertraline HCl (Zoloft) 50 mg PO DAILY [facility] [place] Last Admin: 08/26/17 08:11 Dose: 50 mg Sodium Chloride () 5 - 30 ml IV UD PRN PRN Reason: SALINE FLUSH Last Admin: 08/26/17 09:58 Dose: 10 ml Varenicline (Chantix) 0.5 mg PO BID [facility] Last Admin: 08/26/17 08:10 Dose: 0.5 mg Medical Necessity - Tobacco Use Smoking Status: Former smoker Assessment/Plan This is a 46 years old male patient presented to the medicine because of mechanical fall and right knee pain, found to have acute traumatic distal right hip fracture and is being admitted for pain control and evaluation by orthopedic surgery. #1 acute traumatic right distal fracture of the medial femoral condyle with extension to the intercondylar region: Due to mechanical fall. X-ray of the right femur reviewed. Other imaging studies including x-ray of the pelvis, tibia and fibula, chest x-ray and x-ray of the right knee reviewed and findings noted which is only distal right femur fracture. CT of right knee without contrast reviewed and discussed with the patient. There is no other fracture except as mentioned above including normal medial tibial plateau and lateral femoral condyle and lateral tibial plateau. Plan: The patient is being admitted to MedSur floor, bedrest, IV morphine as needed for pain, IV OxyIR as needed for pain, IV fluids, IV antiemetics, orthopedic surgery consult by Dr. Vazquez appreciated, PT OT evaluation and treatment. Dr. Vazquez recommended knee immobilizer with nonweightbearing. If there is significant fracture displacement or nonunion, surgery could be considered in the near future. #2 hypertension: Blood pressure stable, continue atenolol, lisinopril and HCTZ. #3 type 2 diabetes mellitus: Blood sugar stable, ADA diet, Accu-Cheks, insulin sliding scale, continue Levemir insulin twice daily and metformin. Blood sugars controlled. #4 history of pulmonary embolism: Continue Xarelto. #5 hematuria: Patient complained of hematuria that has been going on for few weeks on review of systems. At this time, he urinated twice in the ER and his urine was clean. Last UA on August 07, 2017 shows 25-50 RBCs and 50-100 WBC. Repeat UA ordered. #6 tobacco abuse: Continue Chantix when dose updated. #7 obstructive sleep apnea: Not sure if patient is on CPAP at home. At this time, pulse ox is normal on room air. CPAP at night #8 DVT prophylaxis: Continue Xarelto. Other chronic medical problems: Stable, continue home medications. #1 GERD. #2 history of cardiac arrest. #3 morbid obesity. #4 chronic back pain. #5 anxiety/depression. For now plan is discharged to SNF and follow with Dr. Rodriguez in 2 weeks with repeat x-rays then. Knee flexion or weightbearing not recommended. Pending SNF precertification This note was generated with [employer] dictation software. Every effort was made to ensure accuracy, however computerized patient safety coordinator mistakes may persist. Code Visit Inpatient E&M: 67526 Subs Hosp L2
[2017-08-26 17:36] LABS: Bedside Glucose 121 mg/dL (70-110)
[2017-08-26 22:46] LABS: Bedside Glucose 104 mg/dL (70-110)
[2017-08-27] MEDS: 0.9% NaCl Peripheral Flush Adult/Peds IV ×2 (00:32→08:11)
[2017-08-27] MEDS: LORazepam 1 MG Tablet PO ×2 (00:32→22:46)
[2017-08-27] MEDS: HYDROmorphone 1 MG/ML Syringe IV ×2 (00:33→08:10)
[2017-08-27] MEDS: Acetaminophen 325 MG Tablet 650 MG PO ×2 (00:47→08:10)
[2017-08-27] MEDS: oxyCODONE 5 MG Tablet 10 MG PO ×4 (02:43→20:28)
[2017-08-27 02:50] VITALS: BP 117/59; PULSE 106; RESP 18; TEMP 36.4; O2SAT 96
--- NOTE | 2017-08-27 04:09 | VDLE_ITS ---
Reason For Study: RLE PAIN RIGHT GSV is normal. CFV is compressible, spontaneous, phasic, competent and demonstrates normal augmentation. FV is compressible, spontaneous, phasic, competent and demonstrates normal augmentation. PTV is compressible. RT PerV is compressible. PT unable to tolerate compression in knee area. POP V is spontaneous, phasic, competent and demonstrates normal augmentation. Procedure Exam performed portable in patient room. The study was technically difficult. Due to obesity 401#, PT instructed not to bend knee due to distal femur fracture. A preliminary report was called and/or faxed to [facility] @ 1:00 pm. Interpretation Summary There is no evidence of right lower extremity deep vein thrombosis. Right greater saphenous vein appears patent and compressible segmentally. Limited examination secondary to pain and body habitus Ordering Physician: Nargis Grissom Referring Physician: London Barkley Performed By: Missy Villarreal, HANNAH, RVT
[2017-08-27 06:35] LABS: Bedside Glucose 117 mg/dL (70-110)
[2017-08-27 07:38] VITALS: O2SAT 96
[2017-08-27] MEDS: Gabapentin 600 MG Tablet PO ×3 (08:10→16:20)
--- NOTE | 2017-08-27 09:12 | PCM.PN.HOSP ---
Subjective: Patient had a right calf swelling which is tender and painful. 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 Objective: General: Alert, Oriented x3, Cooperative HEENT: Atraumatic, PERRLA, EOMI, Normocephalic Neck: Supple, No JVD, Negative Carotid Bruits Lungs: Diminished, no crepitation. Lungs clear no hypoxia Cardiovascular: Regular rate, Regular Rhythm, Normal S1, Normal S2, No murmurs, - Heart rate in 90s -100s Abdomen: Bowel Sounds Present, Soft, Non Tender, Non-Distended Extremities: No edema, Capillary Refill Less than 3 Seconds Skin: No rashes, No breakdown Musculoskeletal: Arthritic Changes, Tenderness - Right knee on immobilizer. Tenderness of right calf Neurological: Cranial nerves II-XII grossly intact Psych/Mental Status: Normal Affect, Appropriate Vitals/I&O's: Vital Signs Temp Pulse Resp BP Pulse Ox 97.6 F L 106 H 18 117/59 L 96 08/27/17 02:50 08/27/17 02:50 08/27/17 02:50 08/27/17 02:50 08/27/17 07:38 Oxygen Delivery Method Room Air Weight: 402 lb 5.498 oz Body Mass Index (BMI) 56.1 Intake and Output for Last 24 Hours 08/25/17 08/26/17 08/27/17 23:59 23:59 23:59 Intake Total 1010 / 1010 2430 / 2430 705 / 705 Output Total 2550 / 2550 3390 / 3390 700 / 700 Balance -1540 / -1540 -960 / -960 5 / 5 Laboratory Results 08/26/17 11:59: POC Glucose 145 H 08/26/17 17:26: POC Glucose 121 H 08/26/17 22:32: POC Glucose 104 08/27/17 06:33: POC Glucose 117 H Current Medications Acetaminophen (Tylenol) 650 mg PO Q6H PRN PRN PRN Reason: Fever, headache, pain Last Admin: 08/27/17 08:10 Dose: 650 mg Albuterol Sulfate (Ventolin Aerosols) 2.5 mg INHALATION Q4H PRN PRN PRN Reason: Shortness of breath, wheezing Atenolol (Tenormin (Beta Dylan)) 50 mg PO DAILY [facility] Calamine/Phenol (Calmoseptine Ointment) 1 applic TOPICAL BID [facility] PRN Reason: Protocol Last Admin: 08/26/17 22:33 Dose: 1 applicatio Cyclobenzaprine HCl (Flexeril) 10 mg PO TID PRN PRN Reason: PAIN Last Admin: 08/27/17 02:44 Dose: 10 mg Dextrose (D50w Syringe) 0 gm IV X1 PRN; Protocol PRN Reason: Hypoglycemia Docusate Sodium (Colace) 100 mg PO BID [facility] Last Admin: 08/26/17 22:34 Dose: 100 mg Furosemide (Lasix) 20 mg PO DAILY [facility] Last Admin: 08/25/17 08:08 Dose: 20 mg Gabapentin (Neurontin) 600 mg PO TIDCM [facility] Last Admin: 08/27/17 08:10 Dose: 600 mg Glucagon () 1 mg IM .X1 PRN PRN Reason: Hypoglycemia Hydromorphone HCl (Dilaudid) 1 mg IV Q3H PRN PRN PRN Reason: SEVERE PAIN (6-10/10) Last Admin: 08/27/17 08:10 Dose: 1 mg Insulin Aspart (Novolog Flexpen (Bkc)) 0 units SC ACHS [facility] PRN Reason: Protocol Last Admin: 08/27/17 06:36 Dose: Not Given Insulin Detemir (Levemir (Bkc)) 20 units SC BID [facility] Last Admin: 08/26/17 22:34 Dose: 20 units Lisinopril (Zestril) 10 mg PO DAILY [facility] Last Admin: 08/26/17 08:09 Dose: Not Given Lorazepam (Ativan) 1 mg PO HS [facility] Last Admin: 08/27/17 00:32 Dose: 1 mg Magnesium Hydroxide (Milk Of Magnesia) 30 ml PO DAILY PRN PRN PRN Reason: Constipation Ondansetron HCl (Zofran) 4 mg IV Q6H PRN PRN PRN Reason: NAUSEA/VOMITING Last Admin: 08/25/17 16:24 Dose: 4 mg Oxycodone HCl (Oxyir) 10 mg PO Q4H PRN PRN PRN Reason: SEVERE PAIN (6-10/10) Last Admin: 08/27/17 02:43 Dose: 10 mg Pantoprazole Sodium (Protonix) 20 mg PO BID [facility] Last Admin: 08/26/17 22:36 Dose: 20 mg Rivaroxaban (Xarelto) 15 mg PO DAILY [facility] Last Admin: 08/26/17 08:10 Dose: 15 mg Sertraline HCl (Zoloft) 50 mg PO DAILY [facility] Last Admin: 08/26/17 08:11 Dose: 50 mg Sodium Chloride () 5 - 30 ml IV UD PRN PRN Reason: SALINE FLUSH Last Admin: 08/27/17 08:11 Dose: 10 ml Varenicline (Chantix) 0.5 mg PO BID [facility] Last Admin: 08/26/17 22:33 Dose: 0.5 mg Medical Necessity - Tobacco Use Smoking Status: Former smoker Assessment/Plan This is a 46 years old male patient presented to the medicine because of mechanical fall and right knee pain, found to have acute traumatic distal right hip fracture and is being admitted for pain control and evaluation by orthopedic surgery. #1 acute traumatic right distal fracture of the medial femoral condyle with extension to the intercondylar region: Due to mechanical fall. X-ray of the right femur reviewed. Other imaging studies including x-ray of the pelvis, tibia and fibula, chest x-ray and x-ray of the right knee reviewed and findings noted which is only distal right femur fracture. CT of right knee without contrast reviewed and discussed with the patient. There is no other fracture except as mentioned above including normal medial tibial plateau and lateral femoral condyle and lateral tibial plateau. Plan: The patient is being admitted to Medr floor, bedrest, IV morphine as needed for pain, IV OxyIR as needed for pain, IV fluids, IV antiemetics, orthopedic surgery consult by Dr. Vazquez appreciated, PT OT evaluation and treatment. Dr. Vazquez recommended knee immobilizer with nonweightbearing. If there is significant fracture displacement or nonunion, surgery could be considered in the near future. #2 hypertension: Blood pressure stable, continue atenolol, lisinopril and HCTZ. Will put her on home dose of atenolol 50 mg twice daily. #3 type 2 diabetes mellitus: Blood sugar stable, ADA diet, Accu-Cheks, insulin sliding scale, continue Levemir insulin twice daily and metformin. Blood sugars controlled. #4 history of pulmonary embolism with right calf swelling, possible DVT: Continue Xarelto. Right leg venous Doppler ordered although wouldn't expect change in management #5 hematuria: Patient complained of hematuria that has been going on for few weeks on review of systems. At this time, he urinated twice in the ER and his urine was clean. Last UA on August 07, 2017 shows 25-50 RBCs and 50-100 WBC. Repeat UA ordered. #6 tobacco abuse: Continue Chantix when dose updated. #7 obstructive sleep apnea: Not sure if patient is on CPAP at home. At this time, pulse ox is normal on room air. CPAP at night #8 DVT prophylaxis: Continue Xarelto. Other chronic medical problems: Stable, continue home medications. #1 GERD. #2 history of cardiac arrest. #3 morbid obesity. #4 chronic back pain. #5 anxiety/depression. For now plan is discharged to SNF and follow with Dr. Rodriguez in 2 weeks with repeat x-rays then. Knee flexion or weightbearing not recommended. Pending SNF precertification This note was generated with [employer] dictation software. Every effort was made to ensure accuracy, however computerized basket assembler mistakes may persist. Laboratory Results 08/26/17 11:59: POC Glucose 145 H 08/26/17 17:26: POC Glucose 121 H 08/26/17 22:32: POC Glucose 104 08/27/17 06:33: POC Glucose 117 H Clinical Impression(s) from Imaging Studies Tibia/Fibula X-Ray 08/23/17 16:29 IMPRESSION: Demineralization of the osseous structures. Electronically Signed: Andrew Teixeira MD at 18:03 EDT , Service support , Lower Extremity CT 08/23/17 18:52 IMPRESSION: Distal femur fracture. Electronically Signed: Andrew Teixeira MD at 19:58 EDT , Service support , Code Visit Inpatient E&M: 82457 Subs Hosp L2
--- NOTE | 2017-08-27 09:17 | PN_ITS ---
Subjective: Patient had a right calf swelling which is tender and painful. 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 Objective: General: Alert, Oriented x3, Cooperative HEENT: Atraumatic, PERRLA, EOMI, Normocephalic Neck: Supple, No JVD, Negative Carotid Bruits Lungs: Diminished, no crepitation. Lungs clear no hypoxia Cardiovascular: Regular rate, Regular Rhythm, Normal S1, Normal S2, No murmurs, - Heart rate in 90s -100s Abdomen: Bowel Sounds Present, Soft, Non Tender, Non-Distended Extremities: No edema, Capillary Refill Less than 3 Seconds Skin: No rashes, No breakdown Musculoskeletal: Arthritic Changes, Tenderness - Right knee on immobilizer. Tenderness of right calf Neurological: Cranial nerves II-XII grossly intact Psych/Mental Status: Normal Affect, Appropriate Vitals/I&O's: Vital Signs Temp Pulse Resp BP Pulse Ox 97.6 F L 106 H 18 117/59 L 96 08/27/17 02:50 08/27/17 02:50 08/27/17 02:50 08/27/17 02:50 08/27/17 07:38 Oxygen Delivery Method Room Air Weight: 402 lb 5.498 oz Body Mass Index (BMI) 56.1 Intake and Output for Last 24 Hours 08/25/17 08/26/17 08/27/17 23:59 23:59 23:59 Intake Total 1010 / 1010 2430 / 2430 705 / 705 Output Total 2550 / 2550 3390 / 3390 700 / 700 Balance -1540 / -1540 -960 / -960 5 / 5 Laboratory Results 08/26/17 11:59: POC Glucose 145 H 08/26/17 17:26: POC Glucose 121 H 08/26/17 22:32: POC Glucose 104 08/27/17 06:33: POC Glucose 117 H Current Medications Acetaminophen (Tylenol) 650 mg PO Q6H PRN PRN PRN Reason: Fever, headache, pain Last Admin: 08/27/17 08:10 Dose: 650 mg Albuterol Sulfate (Ventolin Aerosols) 2.5 mg INHALATION Q4H PRN PRN PRN Reason: Shortness of breath, wheezing Atenolol (Tenormin (Beta Dylan)) 50 mg PO DAILY [facility] Calamine/Phenol (Calmoseptine Ointment) 1 applic TOPICAL BID [facility] PRN Reason: Protocol Last Admin: 08/26/17 22:33 Dose: 1 applicatio Cyclobenzaprine HCl (Flexeril) 10 mg PO TID PRN PRN Reason: PAIN Last Admin: 08/27/17 02:44 Dose: 10 mg Dextrose (D50w Syringe) 0 gm IV X1 PRN; Protocol PRN Reason: Hypoglycemia Docusate Sodium (Colace) 100 mg PO BID [facility] Last Admin: 08/26/17 22:34 Dose: 100 mg Furosemide (Lasix) 20 mg PO DAILY [facility] Last Admin: 08/25/17 08:08 Dose: 20 mg Gabapentin (Neurontin) 600 mg PO TIDCM [facility] Last Admin: 08/27/17 08:10 Dose: 600 mg Glucagon () 1 mg IM .X1 PRN PRN Reason: Hypoglycemia Hydromorphone HCl (Dilaudid) 1 mg IV Q3H PRN PRN PRN Reason: SEVERE PAIN (6-10/10) Last Admin: 08/27/17 08:10 Dose: 1 mg Insulin Aspart (Novolog Flexpen (Bkc)) 0 units SC ACHS [facility] PRN Reason: Protocol Last Admin: 08/27/17 06:36 Dose: Not Given Insulin Detemir (Levemir (Bkc)) 20 units SC BID [facility] Last Admin: 08/26/17 22:34 Dose: 20 units Lisinopril (Zestril) 10 mg PO DAILY [facility] Last Admin: 08/26/17 08:09 Dose: Not Given Lorazepam (Ativan) 1 mg PO HS [facility] Last Admin: 08/27/17 00:32 Dose: 1 mg Magnesium Hydroxide (Milk Of Magnesia) 30 ml PO DAILY PRN PRN PRN Reason: Constipation Ondansetron HCl (Zofran) 4 mg IV Q6H PRN PRN PRN Reason: NAUSEA/VOMITING Last Admin: 08/25/17 16:24 Dose: 4 mg Oxycodone HCl (Oxyir) 10 mg PO Q4H PRN PRN PRN Reason: SEVERE PAIN (6-10/10) Last Admin: 08/27/17 02:43 Dose: 10 mg Pantoprazole Sodium (Protonix) 20 mg PO BID [facility] Last Admin: 08/26/17 22:36 Dose: 20 mg Rivaroxaban (Xarelto) 15 mg PO DAILY [facility] Last Admin: 08/26/17 08:10 Dose: 15 mg Sertraline HCl (Zoloft) 50 mg PO DAILY [facility] Last Admin: 08/26/17 08:11 Dose: 50 mg Sodium Chloride () 5 - 30 ml IV UD PRN PRN Reason: SALINE FLUSH Last Admin: 08/27/17 08:11 Dose: 10 ml Varenicline (Chantix) 0.5 mg PO BID [facility] Last Admin: 08/26/17 22:33 Dose: 0.5 mg Medical Necessity - Tobacco Use Smoking Status: Former smoker Assessment/Plan This is a 46 years old male patient presented to the medicine because of mechanical fall and right knee pain, found to have acute traumatic distal right hip fracture and is being admitted for pain control and evaluation by orthopedic surgery. #1 acute traumatic right distal fracture of the medial femoral condyle with extension to the intercondylar region: Due to mechanical fall. X-ray of the right femur reviewed. Other imaging studies including x-ray of the pelvis, tibia and fibula, chest x-ray and x-ray of the right knee reviewed and findings noted which is only distal right femur fracture. CT of right knee without contrast reviewed and discussed with the patient. There is no other fracture except as mentioned above including normal medial tibial plateau and lateral femoral condyle and lateral tibial plateau. Plan: The patient is being admitted to Medr floor, bedrest, IV morphine as needed for pain, IV OxyIR as needed for pain, IV fluids, IV antiemetics, orthopedic surgery consult by Dr. Vazquez appreciated, PT OT evaluation and treatment. Dr. Vazquez recommended knee immobilizer with nonweightbearing. If there is significant fracture displacement or nonunion, surgery could be considered in the near future. #2 hypertension: Blood pressure stable, continue atenolol, lisinopril and HCTZ. Will put her on home dose of atenolol 50 mg twice daily. #3 type 2 diabetes mellitus: Blood sugar stable, ADA diet, Accu-Cheks, insulin sliding scale, continue Levemir insulin twice daily and metformin. Blood sugars controlled. #4 history of pulmonary embolism with right calf swelling, possible DVT: Continue Xarelto. Right leg venous Doppler ordered although wouldn't expect change in management #5 hematuria: Patient complained of hematuria that has been going on for few weeks on review of systems. At this time, he urinated twice in the ER and his urine was clean. Last UA on August 07, 2017 shows 25-50 RBCs and 50-100 WBC. Repeat UA ordered. #6 tobacco abuse: Continue Chantix when dose updated. #7 obstructive sleep apnea: Not sure if patient is on CPAP at home. At this time, pulse ox is normal on room air. CPAP at night #8 DVT prophylaxis: Continue Xarelto. Other chronic medical problems: Stable, continue home medications. #1 GERD. #2 history of cardiac arrest. #3 morbid obesity. #4 chronic back pain. #5 anxiety/depression. For now plan is discharged to SNF and follow with Dr. Rodriguez in 2 weeks with repeat x-rays then. Knee flexion or weightbearing not recommended. Pending SNF precertification This note was generated with [employer] dictation software. Every effort was made to ensure accuracy, however computerized adult family home program manager mistakes may persist. Laboratory Results 08/26/17 11:59: POC Glucose 145 H 08/26/17 17:26: POC Glucose 121 H 08/26/17 22:32: POC Glucose 104 08/27/17 06:33: POC Glucose 117 H Clinical Impression(s) from Imaging Studies Tibia/Fibula X-Ray 08/23/17 16:29 IMPRESSION: Demineralization of the osseous structures. Electronically Signed: Andrew Teixeira MD at 18:03 EDT , Service support , Lower Extremity CT 08/23/17 18:52 IMPRESSION: Distal femur fracture. Electronically Signed: Andrew Teixeira MD at 19:58 EDT , Service support , Code Visit Inpatient E&M: 03077 Subs Hosp L2
[2017-08-27 10:00] VITALS: BP 130/78; PULSE 98; RESP 20; TEMP 36.6; O2SAT 96
[2017-08-27] MEDS: Rivaroxaban 15 MG Tablet PO (10:39)
[2017-08-27] MEDS: Atenolol 50 MG Tablet PO ×2 (10:39→22:00)
[2017-08-27] MEDS: Pantoprazole Sodium 20 MG Tablet PO ×2 (10:40→22:00)
[2017-08-27] MEDS: Docusate Sodium 100 MG Capsule PO ×2 (10:40→22:00)
[2017-08-27] MEDS: Varenicline 0.5 MG Tablet PO ×2 (10:40→22:00)
[2017-08-27] MEDS: Furosemide 20 MG Tablet PO (10:40)
[2017-08-27] MEDS: Sertraline 50 MG Tablet PO (10:41)
[2017-08-27] MEDS: oxyCODONE CR 15 MG Tablet PO ×2 (11:18→21:09)
[2017-08-27] MEDS: Menthol/Lanolin/Calamine/Znox 113 GM Tube 1 APPLIC TOPICAL ×2 (11:23→22:00)
[2017-08-27 12:26] LABS: Bedside Glucose 107 mg/dL (70-110)
[2017-08-27] MEDS: HYDROmorphone 2 MG TABLET PO ×3 (13:04→22:46)
[2017-08-27 16:30] VITALS: BP 129/78; PULSE 84; RESP 20; TEMP 36.7; O2SAT 96
[2017-08-27 16:45] LABS: Bedside Glucose 102 mg/dL (70-110)
[2017-08-27 21:07] VITALS: BP 133/69; PULSE 89; RESP 18; TEMP 36.9; O2SAT 96
[2017-08-27 23:00] LABS: Bedside Glucose 99 mg/dL (70-110)
[2017-08-28 03:00] VITALS: BP 127/68; PULSE 80; RESP 20; TEMP 36.5; O2SAT 99
[2017-08-28] MEDS: HYDROmorphone 2 MG TABLET PO ×6 (03:01→23:30)
[2017-08-28 07:06] LABS: Bedside Glucose 110 mg/dL (70-110)
--- NOTE | 2017-08-28 07:40 | PN_ITS ---
Subjective: Patient was seen and examined. He complains of pain in his right knee especially with therapy. He also complains of intermittent hematuria which has been ongoing for the past 3 days. Never seen a urologist. Discussed with case management, prison facility discharge planning ongoing Objective: Physical examination: General: Alert, Oriented x3, Cooperative, morbidly obese HEENT: Atraumatic, PERRLA, EOMI, Normocephalic Neck: Supple Lungs: Diminished, no crepitation. Lungs clear, no hypoxia Cardiovascular: Regular rate, Regular Rhythm, Normal S1, Normal S2, No murmurs Abdomen: Bowel Sounds Present, Soft, Non Tender, Non-Distended Extremities: No edema, Capillary Refill Less than 3 Seconds Skin: No rashes, No breakdown Musculoskeletal: Arthritic Changes, Tenderness - Right knee on immobilizer. Tenderness of right calf Neurological: Cranial nerves II-XII grossly intact Psych/Mental Status: Normal Affect, Appropriate Vitals/I&O's: Vital Signs Temp Pulse Resp BP Pulse Ox 97.7 F L 80 20 H 127/68 H 99 08/28/17 03:00 08/28/17 03:00 08/28/17 03:00 08/28/17 03:00 08/28/17 03:00 Oxygen Delivery Method Room Air Weight: 182.5 kg Body Mass Index (BMI) 56.1 Intake and Output for Last 24 Hours 08/26/17 08/27/17 08/28/17 23:59 23:59 23:59 Intake Total 2430 / 2430 1785 / 1785 1600 / 1600 Output Total 3390 / 3390 3100 / 3100 1475 / 1475 Balance -960 / -960 -1315 / -1315 125 / 125 Laboratory Results 08/27/17 12:18: POC Glucose 107 08/27/17 16:24: POC Glucose 102 08/27/17 21:52: POC Glucose 99 08/28/17 06:58: POC Glucose 110 Current Medications Acetaminophen (Tylenol) 650 mg PO Q6H PRN PRN PRN Reason: Fever, headache, pain Last Admin: 08/27/17 08:10 Dose: 650 mg Albuterol Sulfate (Ventolin Aerosols) 2.5 mg INHALATION Q4H PRN PRN PRN Reason: Shortness of breath, wheezing Atenolol (Tenormin (Beta Dylan)) 50 mg PO BID [facility] Last Admin: 08/27/17 22:00 Dose: 50 mg Calamine/Phenol (Calmoseptine Ointment) 1 applic TOPICAL BID JOLANTA PRN Reason: Protocol Last Admin: 08/27/17 22:00 Dose: 1 applicatio Cyclobenzaprine HCl (Flexeril) 10 mg PO TID PRN PRN Reason: PAIN Last Admin: 08/27/17 15:21 Dose: 10 mg Dextrose (D50w Syringe) 0 gm IV X1 PRN; Protocol PRN Reason: Hypoglycemia Docusate Sodium (Colace) 100 mg PO BID [facility] Last Admin: 08/27/17 22:00 Dose: 100 mg Furosemide (Lasix) 20 mg PO DAILY [facility] Last Admin: 08/27/17 10:40 Dose: 20 mg Gabapentin (Neurontin) 600 mg PO TIDCM [facility] Last Admin: 08/27/17 16:20 Dose: 600 mg Glucagon () 1 mg IM .X1 PRN PRN Reason: Hypoglycemia Hydromorphone HCl (Dilaudid) 1 mg IV Q3H PRN PRN PRN Reason: SEVERE PAIN (6-10/10) Last Admin: 08/27/17 08:10 Dose: 1 mg Hydromorphone HCl (Dilaudid Tablet) 2 mg PO Q3H PRN PRN PRN Reason: SEVERE PAIN (6-10/10) Last Admin: 08/28/17 03:01 Dose: 2 mg Insulin Aspart (Novolog Flexpen (Bkc)) 0 units SC ACHS [facility] PRN Reason: Protocol Last Admin: 08/28/17 07:28 Dose: Not Given Insulin Detemir (Levemir (Bkc)) 20 units SC BID [facility] Last Admin: 08/27/17 22:00 Dose: 20 units Lisinopril (Zestril) 10 mg PO DAILY [facility] Last Admin: 08/27/17 11:23 Dose: Not Given Lorazepam (Ativan) 1 mg PO HS [facility] Last Admin: 08/27/17 22:46 Dose: 1 mg Magnesium Hydroxide (Milk Of Magnesia) 30 ml PO DAILY PRN PRN PRN Reason: Constipation Ondansetron HCl (Zofran) 4 mg IV Q6H PRN PRN PRN Reason: NAUSEA/VOMITING Last Admin: 08/25/17 16:24 Dose: 4 mg Oxycodone HCl (Oxyir) 10 mg PO Q4H PRN PRN PRN Reason: MODERATE PAIN (4-5/10) Last Admin: 08/27/17 20:28 Dose: 10 mg Oxycodone HCl (Oxycontin) 15 mg PO BID [facility] Last Admin: 08/27/17 21:09 Dose: 15 mg Pantoprazole Sodium (Protonix) 20 mg PO BID [facility] Last Admin: 08/27/17 22:00 Dose: 20 mg Rivaroxaban (Xarelto) 15 mg PO DAILY [facility] Last Admin: 08/27/17 10:39 Dose: 15 mg Sertraline HCl (Zoloft) 50 mg PO DAILY [facility] Last Admin: 08/27/17 10:41 Dose: 50 mg Sodium Chloride () 5 - 30 ml IV UD PRN PRN Reason: SALINE FLUSH Last Admin: 08/27/17 08:11 Dose: 10 ml Varenicline (Chantix) 0.5 mg PO BID [facility] Last Admin: 08/27/17 22:00 Dose: 0.5 mg Medical Necessity - Tobacco Use Smoking Status: Former smoker Tobacco Use: Non-smoker Assessment/Plan 46-year-old super morbidly obese patient multiple comorbidities significant for super morbid obesity, admitted after mechanical fall and found to have acute distal right hip fracture. 1. Acute right distal femoral fracture secondary to mechanical fall, managed conservatively, plan from orthopedics is to follow-up with Dr. Benítez in the office in 2 weeks for repeat x-rays, awaiting discharge planning to prison facility. 2. Hematuria, intermittent, stable vitals, stable H&H, patient never go to make a urology appointment at outpatient, will consult urology to establish care and plan. 3. Hypertension, stable, on atenolol, lisinopril and HCTZ. 4. Type 2 diabetes mellitus, Blood sugar are controlled, on ADA diet, continue on Levemir, insulin sliding scale, with Accu-Cheks 5. History of pulmonary embolism, on Xarelto. 6. Tobacco abuse, on Chantix 7. obstructive sleep apnea: Not sure if patient is on CPAP at home. At this time, pulse ox is normal on room air. CPAP at night 8. Super morbid obesity, BMI 56.1, patient may be candidate for bariatric surgery, can be followed up in the outpatient 9. DVT prophylaxis, on Xarelto. Code Visit Inpatient E&M: 16811 Subs Hosp L2
[2017-08-28 08:46] VITALS: BP 140/65; PULSE 80; RESP 20; TEMP 36.6; O2SAT 98
[2017-08-28] MEDS: Acetaminophen 325 MG Tablet 650 MG PO ×3 (08:48→21:41)
[2017-08-28] MEDS: Atenolol 50 MG Tablet PO ×2 (08:48→21:42)
[2017-08-28] MEDS: Lisinopril 10 MG Tablet PO (08:49)
[2017-08-28] MEDS: Gabapentin 600 MG Tablet PO ×3 (08:50→17:13)
[2017-08-28] MEDS: Rivaroxaban 15 MG Tablet PO (08:50)
[2017-08-28] MEDS: Furosemide 20 MG Tablet PO (08:50)
[2017-08-28] MEDS: Pantoprazole Sodium 20 MG Tablet PO ×2 (08:50→21:42)
[2017-08-28] MEDS: Sertraline 50 MG Tablet PO (08:50)
--- NOTE | 2017-08-28 08:51 | CASEMGMT ---
Addendum entered by Chelle Wood 08/28/17 09:49: SW spoke w/pt, let him know that SW faxed two referrals, will see if either [facility] or [facility] can take pt. Pt would prefer to go to the closer facility if possible, which is [facility]. SW received a call from [facility], Wen states they can take pt and will start the precert. SW called Samantha at [facility] and let her know via voicemail that pt will be going elsewhere. SW also let pt know that [facility] can take him and started the precert. Pt also asked for a letter to give to [facility] as he is expected to fill out 5 job applications per week at [facility] in order to get his food stamps, and is not able to do this at this time. SW explained can have him sign a release and get him a letter. Pt also asked us to make an appt w/Dr. Rodriguez, SW will ask emerging technologies director to do this. SW will continue to follow. MATT Elaine, BAKERY WORKER Original Note: SW called [facility], spoke w/Samantha. She states they will review the referral, SW faxed it to them. SW also called [facility] ([phone]), they also will consider pt. SW faxed referral to them as well. SW will await calls back, will continue to follow. MATT Elaine, BAKERY WORKER
[2017-08-28] MEDS: oxyCODONE CR 15 MG Tablet PO (08:56)
[2017-08-28] MEDS: Menthol/Lanolin/Calamine/Znox 113 GM Tube 1 APPLIC TOPICAL ×2 (10:36→21:45)
[2017-08-28 12:46] LABS: Bedside Glucose 90 mg/dL (70-110)
[2017-08-28] MEDS: Docusate Sodium 100 MG Capsule PO ×2 (12:46→21:42)
[2017-08-28] MEDS: Varenicline 0.5 MG Tablet PO ×2 (12:46→21:42)
[2017-08-28 15:34] VITALS: BP 129/79; PULSE 80; RESP 18; TEMP 36.3; O2SAT 96
[2017-08-28 17:20] LABS: Bedside Glucose 88 mg/dL (70-110)
[2017-08-28 21:40] VITALS: BP 118/60; PULSE 77; RESP 18; TEMP 36.1; O2SAT 96
[2017-08-28] MEDS: LORazepam 1 MG Tablet PO (21:40)
[2017-08-28] MEDS: oxyCODONE CR 15 MG Tablet 30 MG PO (21:41)
[2017-08-28 21:56] LABS: Bedside Glucose 96 mg/dL (70-110)
[2017-08-29] MEDS: HYDROmorphone 2 MG TABLET PO ×4 (02:26→12:29)
[2017-08-29 02:27] VITALS: BP 114/57; PULSE 63; RESP 16; TEMP 36.1; O2SAT 93
[2017-08-29 06:51] LABS: Bedside Glucose 95 mg/dL (70-110)
[2017-08-29 08:19] VITALS: BP 112/50; PULSE 83; RESP 18; TEMP 36.5; O2SAT 100
[2017-08-29] MEDS: Menthol/Lanolin/Calamine/Znox 113 GM Tube 1 APPLIC TOPICAL (08:24)
[2017-08-29] MEDS: Docusate Sodium 100 MG Capsule PO (08:24)
[2017-08-29] MEDS: Varenicline 0.5 MG Tablet PO (08:24)
[2017-08-29] MEDS: Gabapentin 600 MG Tablet PO ×2 (08:24→12:27)
[2017-08-29] MEDS: Sertraline 50 MG Tablet PO (08:24)
[2017-08-29] MEDS: Pantoprazole Sodium 20 MG Tablet PO (08:24)
[2017-08-29] MEDS: Furosemide 20 MG Tablet PO (08:24)
--- NOTE | 2017-08-29 08:36 | CASEMGMT ---
Social Work Note Updated clinicals faxed to [facility]. Placed call and updated this SW would be following today and provided with contact information. Per Wen she anticipates getting pre-cert this day as insurance had called this morning requesting updates. SW to continue to follow and assist with discharge planning. Plan: [facility] pending pre-cert. Lydia Wood, WINDOWS SECURITY ANALYST, MECHANICAL ENGINEERING DIRECTOR
[2017-08-29] MEDS: oxyCODONE CR 15 MG Tablet 30 MG PO (10:30)
[2017-08-29] MEDS: Rivaroxaban 15 MG Tablet PO (10:31)
[2017-08-29 10:36] VITALS: BP 114/65; PULSE 78
[2017-08-29 11:06] LABS: Bedside Glucose 105 mg/dL (70-110)
--- NOTE | 2017-08-29 11:23 | CASEMGMT ---
Social Work Note Call from Wen with [facility] stating that pre-cert has been obtained. Paged physician who confirms that she will be discharging the pt. SW to continue to follow and assist with discharge planning. Plan: [facility] for rehabilitation. Lydia Wood, FLAME HARDENING MACHINE SETTER, FOREMAN SHIPPING DEPARTMENT
--- NOTE | 2017-08-29 11:53 | PCM.TXEXTCAR ---
- Diet 08/24/17 10:55 Diet: Calorie Controlled Is pt able to select menu?: Yes How many daily calories?: 1800 calorie - Routine Orders/Code Status Routine Lab Work: CBC - in 3 days, BMP - in 3 days - Wound(s) Right Leg Wound Type: femur fx - Therapies Weight Bearing: No knee flexion Extremity Affected:: Right Lower Physical Therapy: Eval and Treat Occupational Therapy: Eval and Treat - Allergies/Procedures Done in Hospital Allergies/Adverse Reactions: Allergies quinine Allergy (Verified 08/23/17 16:17) Hives Procedures: None - Type of Care/Length of Stay Estimated LOS: Convalescent Care Less Than 30 days Type of Care Needed: Skilled Rehab Potential: Good Prognosis: Good - Additional Orders/Day of Discharge Additional Orders: Pt has appointment w/Dr. Rodriguez on 09/07 at 9am. Day of Discharge: 08/29/17 - Dietary and Speech Recommendations Dietitian Recommendations/Changes: Rec diet change to 2000 leann Cardiac to better meet pt est nutritional needs - Follow Up Care Primary Care Physician: London Barkley MD [Primary Care Provider] - Please follow up with your Primary Care Physician in: in 2 weeks Please Follow Up With: Waqas Rodriguez MD When: as scheduled on 09/07/17
--- NOTE | 2017-08-29 11:56 | PCM.DC.SUM ---
Discharge Date and Diagnosis Date of Admission: 08/23/17 Date of Discharge: 08/29/17 - Primary Discharge Diagnosis Acute right distal femoral fracture Intermittent hematuria - Secondary Discharge Diagnosis Chronic Problems (Last Updated 08/23/17 @ 19:01 by Ruben Hilario MD) UTI (urinary tract infection) (Chronic) DM type 2 (diabetes mellitus, type 2) (Chronic) Premature ventricular contraction (Chronic) Tachycardia (Chronic) Dyspnea (Chronic) KHALIF (obstructive sleep apnea) (Chronic) Tobacco dependence in remission (Chronic) Restrictive lung disease (Chronic) Pulmonary HTN (Chronic) Hypertension (Chronic) Obesity (Chronic) GERD (Chronic) VTE (venous thromboembolism) (Chronic) Morbid obesity (Chronic) Pulmonary embolism (Chronic) DVT (deep venous thrombosis) (Chronic) RLE Tear of medial meniscus of left knee (Chronic) Left ventricular hypertrophy (Chronic) Tricuspid regurgitation (Chronic) Lumbosacral spondylosis (Chronic) Degeneration of lumbosacral intervertebral disc (Chronic) Lumbosacral radiculopathy (Chronic) Hospital Course and Treatment Imaging Results: Clinical Impression(s) from Imaging Studies Chest X-Ray 08/23/17 16:28 IMPRESSION: Normal x-ray examination of the chest. Electronically Signed: Andrew Teixeira MD at 18:09 EDT , Service support , Femur X-Ray 08/23/17 16:29 IMPRESSION: Distal femur fracture. Electronically Signed: Andrew Teixeira MD at 17:58 EDT , Service support , Knee X-Ray 08/23/17 16:29 IMPRESSION: Distal femur fracture. Joint effusion. Electronically Signed: Andrew Teixeira MD at 18:02 EDT , Service support , Pelvis X-Ray 08/23/17 16:29 IMPRESSION: No fracture. Right hip replacement. Electronically Signed: Andrew Teixeira MD at 18:13 EDT , Service support , Tibia/Fibula X-Ray 08/23/17 16:29 IMPRESSION: Demineralization of the osseous structures. Electronically Signed: Andrew Teixeira MD at 18:03 EDT , Service support , Lower Extremity CT 08/23/17 18:52 IMPRESSION: Distal femur fracture. Electronically Signed: Andrew Teixeira MD at 19:58 EDT , Service support , Orthopedics, urology Operations: None, - - arthroscopic surgery on the left knee to repair a torn medial meniscus...01/[address] Waqas Rodriguez Procedures: None Summary of Care Provided: 46-year-old super morbidly obese patient multiple comorbidities significant for super morbid obesity, admitted after mechanical fall and found to have acute distal right hip fracture. 1. Acute right distal femoral fracture secondary to mechanical fall, managed conservatively, plan from orthopedics is to follow-up with Dr. Rodriguez in the office in 2 weeks for repeat x-rays, patient was [facility] to a [facility] facility. 2. Hematuria, intermittent, his vitals and blood work remained stable, patient was given an appointment to follow-up with urology in the outpatient in a week. 3. Hypertension, stable, was on atenolol, lisinopril and HCTZ. 4. Type 2 diabetes mellitus, Blood sugar are controlled, on ADA diet, managed on Levemir, insulin sliding scale. 5. History of pulmonary embolism, on Xarelto. 6. Tobacco abuse, on Chantix 7. obstructive sleep apnea, on CPAP at night 8. Super morbid obesity, BMI 56.1, patient may be candidate for bariatric surgery, can be followed up in the outpatient Discharge Diet: Low fat/ Low Cholesterol, 1800 Calorie Control Diet, 2000 mg Sodium Diet Discharge Activity: Return to Normal Activity Home Medications: Medications to take at Discharge Albuterol IH (ProAir) [Proair Hfa] 2 puff INHALATION Q4H PRN PRN #1 inhaler 08/09/17 Atenolol [Tenormin (beta tamar)] 50 mg PO BID #120 tab 08/09/17 Cyclobenzaprine [Flexeril] 10 mg PO TID PRN #30 tab 08/09/17 Furosemide [Lasix] 20 mg PO DAILY #60 tab 08/09/17 Insulin Detemir [Levemir FlexPen] 20 units SC BID #60 insuln.pen 08/09/17 Lisinopril/Hydrochlorothiazide [Zestoretic 10/12.5 Tablet] 1 tab PO DAILY #60 tab 08/09/17 Omeprazole [Prilosec] 20 mg PO BID #120 cap 08/09/17 Sertraline HCl [Zoloft] 50 mg PO DAILY #60 tab 08/09/17 Gabapentin [Neurontin] 600 mg PO TIDCM 08/23/17 Metformin HCl [Glucophage] 1,000 mg PO BIDCM 08/23/17 Rivaroxaban [Xarelto] 15 mg PO DAILY 08/23/17 Varenicline Tartrate [Chantix] 0.5 mg PO BID 08/23/17 Docusate Sodium [Colace] 100 mg PO BID capsule 08/29/17 Lorazepam [Ativan] 1 mg PO DAILY #5 tab 08/29/17 Oxycodone CR [Oxycontin] 30 mg PO BID 5 Days #10 tab 08/29/17 Oxycodone [Oxyir] 10 mg PO Q4H PRN PRN 4 Days #20 tab 08/29/17 Following Prescrptions Were Given to Patient: Oxycodone [Oxyir] 10 mg PO Q4H PRN PRN 4 Days #20 tab PRN Reason: Moderate Pain (4-5/10) Lorazepam [Ativan] 1 mg PO DAILY #5 tab Oxycodone CR [Oxycontin] 30 mg PO BID 5 Days #10 tab Primary Care Physician: London Barkley MD [Primary Care Provider] - Please follow up with your Primary Care Physician in: in 2 weeks Please Follow Up With: Waqas Rodriguez MD When: as scheduled on 09/07/17 Disposition: Home Minutes spent on discharge:: 25 Patient Condition:: Stable Medical Necessity - Tobacco Use Smoking Status: Former smoker Tobacco Use: Non-smoker Meaningful Use Info Meaningful Use Diagnoses (Choose all that apply): None applicable Code Visit Inpatient E&M: 86567 Disch Hosp
--- NOTE | 2017-08-29 12:18 | CASEMGMT ---
Social Work Assessment Referral Date: 08/29/17 Date of Assessment: 08/29/2017 Reason for Consult: Placement Informant: Anson DavisW-S Personal Status Pt is alert and oriented x4. Presents with pleasant affect as evidenced by smiling and willingness to participate in assessment. Reports to lives with her father in a one-story home with a ramp for entry. DME consists of walker, wheelchair, shower chair, grab bars, toilet riser and a hospital bed. Pt reports difficulty with ambulation d/t her leg that has been occurring within the last 3 weeks. Reports to have good relationships with family and a lot of support. Identifies her brother and father as her primary supports. Her brother is her HCPOA and request that he bring in the paperwork for the pt's medical record. Pt graduated high school and denies issues with reading or writing. Receives disability, but not Medicare at this time. Pt's oncologist is Dr. Reyes. Her last chemo therapy was in December of 2016. PCP is Dr. Pat in [place] and her preferred pharmacy is [facility] in [place]. Inquire about what the pt's goals are and she reports to be able to function. Prior to the last few weeks the pt was independently caring for herself and she is presently unable. Dr. Reyes is to be consulted and she is hoping for additional answers regarding her condition. Admitting physician had recommended SNF and pt and family are in agreement. Provided with a list of in network facilities and pt requesting [facility]. Suggest identifying another option or two in the event that they are not able to accept. Substance Use Hx Pt denies hx of substance use. Mental Health Hx Diagnoses: Anxiety Stressors: Increased Weakness, Decline in functional status SI or HI? Denies Treatment? No Medications: Remeron Prescribed by: Dr. Pat Pt reports anxiety and states that it has increased with present situation. She does not go to counseling and reports that her PCP prescribes Remeron to assist with symptom management. Denies SI or HI. Resources: JFS: Medicaid Financial: Disability Transportation: [employer] assists with gas money Intervention: Assessment completed to identify needs. Pt unable to ambulate at baseline and is requesting placement. Initial referral faxed to [facility] for review. Will continue to follow and assist with discharge planning. Plan: SNF pending acceptance and pre-cert. Lydia Wood, TRUCK LEASING MANAGER, LABELING STRATEGIST
[2017-08-29 12:25] VITALS: BP 108/53; PULSE 68
[2017-08-29] MEDS: Acetaminophen 325 MG Tablet 650 MG PO (12:29)
--- NOTE | 2017-08-29 12:56 | CASEMGMT ---
Social Work Note Convalescent 7000 completed and submitted in the [facility]. Copies on chart and in [facility] packet. Transfer summary and scripts faxed to [facility]. Copies on chart and originals in [facility] packet. Transport setup through [facility] via cot at [phone]. Notified SNF, RN and pt. Plan: [facility]. Convalescent 7000 submitted in the [facility]. Transport setup through [facility] via cot at [phone]. Lydia Wood, CANDY DEPOSITING MACHINE OPERATOR, GRANULATING MACHINE OPERATOR
--- NOTE | 2017-08-29 13:17 | NURSING ---
Report called to Kacy at [facility] at this time. Patient will be picked up by [place] aroung [phone]. Denied further questions.
[2017-08-29 14:00] VITALS: BP 106/53; PULSE 63; RESP 18; TEMP 36.6; O2SAT 95
== END 2017-08-29 14:40 | disposition skilled nursing facility (03) | DRG 235 ==
LOC: ED 18:16 → MS2 18:59
PROVIDERS: Anesthesiology; Family Medicine; Internal Medicine; Admitting Provider Hospitalist; Emergency Provider Emergency Medicine; Family Provider Family Medicine; PCP Family Medicine; Visit Provider Internal Medicine
DX: S72.434A Nondisplaced fracture of medial condyle of right femur, initial encounter for closed fracture (principal); I27.20 Pulmonary hypertension, unspecified; E66.01 Morbid (severe) obesity due to excess calories; J98.4 Other disorders of lung; I07.1 Rheumatic tricuspid insufficiency; R31.9 Hematuria, unspecified; Z68.43 Body mass index [BMI] 50.0-59.9, adult; E11.9 Type 2 diabetes mellitus without complications; W01.0XXA Fall on same level from slipping, tripping and stumbling without subsequent striking against object, initial encounter; Y93.01 Activity, walking, marching and hiking; Y92.512 Supermarket, store or market as the place of occurrence of the external cause; G47.33 Obstructive sleep apnea (adult) (pediatric); F17.201 Nicotine dependence, unspecified, in remission; I10 Essential (primary) hypertension; Z86.711 Personal history of pulmonary embolism; Z79.899 Other long term (current) drug therapy; Z79.02 Long term (current) use of antithrombotics/antiplatelets; Z79.4 Long term (current) use of insulin; K21.9 Gastro-esophageal reflux disease without esophagitis
CPT/HCPCS: 36415; 71045; 72170; 73552; 73560; 73590; 73700; 80048; 80076; 81001; 82962; 83036; 85025; 85610; 85730; 93005; 93971; 94002; 97110; 97162; 97165; 97530; 99284; A4216; J2405

== ENCOUNTER 2017-09-07 10:32 | Inpatient (IN) | payer MEDICAID, SELFPAY ==
[2017-09-07 11:27] VITALS: BMI 54.3
[2017-09-07 11:28] VITALS: BP 124/56; PULSE 76; RESP 18; TEMP 36.7; O2SAT 94; BMI 54.4
--- NOTE | 2017-09-07 12:15 | NURSING ---
spoke with Giuliana at [facility] regarding faxing over pt medication list/aug. fax number to this nursing unit provided to Giuliana and states she will fax over the information.
[2017-09-07] MEDS: Acetaminophen 500 MG Tablet 1000 MG PO ×2 (13:03→22:04)
[2017-09-07] MEDS: oxyCODONE 5 MG Tablet 10 MG PO ×2 (13:10→20:33)
--- NOTE | 2017-09-07 15:09 | PCM.PROGNOTE ---
Subjective: Patient seen and examined. Hospitalist services consulted for medical clearance for surgery for femoral fracture repair. Patient had mechanical fall 08/24/17 resulting in right distal femoral fracture. He followed up with ortho as outpatient with initial conservative management. Patient saw Dr. Rodriguez in the office today who sent him to [facility] for plans of surgical intervention tomorrow. Patient complains of right lower extremity pain /10. Denies fever, chills. Denies chest pain, shortness of breath. Denies other complaints. - Physical Exam General: Alert, Oriented x3, Cooperative, No apparent distress HEENT: Atraumatic, PERRLA, EOMI, Normocephalic Neck: Supple, No JVD, Negative Carotid Bruits Lungs: Clear to auscultation, Diminished Cardiovascular: Regular rate, Regular Rhythm, Normal S1, Normal S2, No murmurs Abdomen: Bowel Sounds Present, Soft, Non Tender, Non-Distended, Obese Extremities: No clubbing, No cyanosis, Edema - Right lower extremity Skin: No rashes, No breakdown Musculoskeletal: Tenderness - RLE Neurological: Cranial nerves II-XII grossly intact, Neuro grossly intact Psych/Mental Status: Normal Affect, Appropriate Vital Signs Temp Pulse Resp BP Pulse Ox 98.0 F 76 18 124/56 H 94 09/07/17 11:28 09/07/17 11:28 09/07/17 11:28 09/07/17 11:28 09/07/17 11:28 Oxygen Delivery Method Room Air Weight: 176.901 kg Body Mass Index (BMI) 54.3 Finger Stick Blood Glucose 234 Medical Necessity - Tobacco Use Smoking Status: Former smoker Assessment/Plan 1. Medical clearance for recent right distal femoral fracture secondary to mechanical fall-mechanical fall took place 08/23/2017. Obtain EKG. Obtain CXR. Patient is low risk for complications from surgery and patient can be cleared medically for surgery. 2. Type 2 diabetes mellitus-hold home regimen. Continue Accu-Cheks before meals at bedtime with sliding scale insulin and Levemir. Hemoglobin A1C 08/24/17 8.0%. Repeat HA1C pending. 3. History of pulmonary embolism-on Xarelto. Hold prior to surgery. Recent duplex ultrasound 08/28/2017 showed no evidence of right lower extremity DVT. 4. History of tobacco use states he quit approximately 2 weeks ago.Encouraged continued cessation. 5. Obstructive sleep apnea-follows with Dr. Astorga. Continue BiPAP. 6. Hypertension-stable, continue home regimen of atenolol, lisinopril, HCTZ. 7. Super morbid obesity-encouraged lifestyle and dietary modifications. 8. GERD-continue omeprazole. 9. Chronic back pain-follows with pain management as outpatient. 10. Anxiety/Depression-continue home regimen. 11. Remote history of cardiac arrest with brief CPR following arthroscopic surgery to repair a torn right medial meniscus tear. This occurred during admission January 2016. Cardiology was consulted, Dr. Miranda saw patient during that admission. Suspect secondary to acute pulmonary embolism. Patient had prior stress test and cardiac catheterization in 2014 both which were unremarkable. Cardiac cath 01/2015 showed normal coronary arteries. Obtain EKG. DVT prophylaxis-Lovenox subcu. This patient was seen by EZEQUIEL Beckwith under the supervision of Dr. Ramesh.
[2017-09-07 15:29] VITALS: BP 108/56; PULSE 73; RESP 18; TEMP 36.7; O2SAT 93
--- NOTE | 2017-09-07 15:38 | EKG12_ITS ---
Test Reason : Blood Pressure : / mmHG Vent. Rate : 080 BPM Atrial Rate : 080 BPM P-R Int : 192 ms QRS Dur : 080 ms QT Int : 406 ms P-R-T Axes : 032 013 012 degrees QTc Int : 468 ms Normal sinus rhythm Normal ECG No previous ECGs available Confirmed by LUCIA NGUYEN, CANDI ([id number]), associate entertainment editor MANAV CARMEN ([id number]) on 09/19/2017 9:31:27 AM Referred By: MAYELIN Confirmed By:CANDI MYERS MD
--- NOTE | 2017-09-07 16:00 | RAD_ITS ---
STUDY: X-RAY CHEST REASON FOR EXAM: Male, 46 years old. HAVING KNEE SURGERY SOON, HX PE AND SOB TECHNIQUE: Single AP portable view of the chest. COMPARISON: August 23, 2017 FINDINGS: There is an elevated right hemidiaphragm. The lungs are clear and expanded. There is no demonstrated pleural abnormality. Normal size heart. Normal mediastinum and natalia. Normal visualized pulmonary arteries. Normal visualized aortic arch and descending thoracic aorta. Normal visualized thoracic spine. Normal visualized ribs, clavicles, and shoulders. There is no demonstrated abnormality of the visualized soft tissue structures of the upper abdomen. RAD/Chest 1 View (Portable) IMPRESSION: Normal x-ray examination of the chest. Electronically Signed: Stanley Cordero MD at 16:17 EDT , Service support ,
[2017-09-07 16:12] LABS: Absolute Lymphocyte Count 2.69 X10^3/ul (0.83-4.51); Absolute Neutrophil Count 5.3 X10^3/uL (2.0-7.7); Basophil# 0.07 X10^3/uL; Basophil% 0.8 % (0-1); Eosinophil# 0.12 X10^3/uL; Eosinophils% 1.3 % (0-5); Hematocrit 41.3 % (40-54); Hemoglobin 13.7 g/dl (13.0-16.5); Lymphocyte # 2.69 X10^3/ul (4.0); Lymphocyte % 29.5 % (19-41); Mean Corp Hgb Conc 33.2 g/gl (32-36); Mean Corpuscular Hgb 31.6 pg (27.0-32.0); Mean Corpuscular Volume 95.2 fL (80-94); Mean Platelet Vol. 9.7 fl (6.2-12.0); Monocyte# 0.97 X10^3/uL; Monocyte% 10.6 % (0-10); Neutrophil # 5.26 X10^3/uL (2.7-7.7); Neutrophil % 57.7 % (47-70); Platelet Count 344 K/mm3 (150-450); RBC Distribution Width CV 13.2 % (11.6-14.6); RBC Distribution Width SD 44.5 fl (35.1-43.9); Red Blood Count 4.34 M/mm3 (4.6-6.2); White Blood Count 9.1 K/mm3 (4.4-11.0)
[2017-09-07 16:18] LABS: Anion Gap 8 (5-15); BUN 13 mg/dL (7-18); BUN/Creat Ratio 13.7 RATIO (10-20); Calcium,Total 8.6 mg/dL (8.5-10.1); Chloride 102 mmol/L (98-107); Creatinine, Serum 0.95 mg/dL (0.70-1.30); EST Glomerular Filtration Rate 90 mL/min (>60); Est Glom Filt Rate - Afr Amer 109 mL/min (>60); Estimated Creatinine Clearance 102.38 ml/min; Glucose 91 mg/dL (74-106); Potassium 3.6 mmol/L (3.5-5.1); Sodium Level 136 mmol/L (136-145)
[2017-09-07 16:19] LABS: POSITIVE COUNT NO; POSITIVE DIFFERENTIAL NO; POSITIVE MORPHOLOGY NO
[2017-09-07 16:45] LABS: Hemoglobin A1c 7.2 % (4.2-6.3)
[2017-09-07] MEDS: Gabapentin 600 MG Tablet PO (18:21)
[2017-09-07 20:40] VITALS: BP 118/69; PULSE 87; RESP 18; TEMP 36.5; O2SAT 99
[2017-09-07] MEDS: Atenolol 50 MG Tablet PO (22:04)
[2017-09-07] MEDS: Pantoprazole Sodium 20 MG Tablet PO (22:04)
[2017-09-07] MEDS: Morphine 2 MG/ML Syringe 1 MG IV (23:48)
[2017-09-07] MEDS: 0.9% NaCl Peripheral Flush Adult/Peds IV (23:48)
[2017-09-08] VITALS (16 sets, daily range): BP systolic 103–168; BP diastolic 59–89; PULSE 71–98; RESP 12–20; TEMP 36.3–37.3; O2SAT 91–98; BMI 54.6
[2017-09-08 00:50] LABS: Bedside Glucose 95 mg/dL (70-110)
[2017-09-08] MEDS: oxyCODONE 5 MG Tablet 10 MG PO ×5 (01:08→23:36)
[2017-09-08] MEDS: Morphine 2 MG/ML Syringe 1 MG IV ×4 (03:06→12:00)
[2017-09-08] MEDS: 0.9% NaCl Peripheral Flush Adult/Peds IV ×3 (05:31→12:00)
[2017-09-08 06:45] LABS: Bedside Glucose 108 mg/dL (70-110)
[2017-09-08] MEDS: Lactated Ringers 1,000 ML 125 ML IV ×2 (07:22→21:54)
[2017-09-08] MEDS: Atenolol 50 MG Tablet PO ×2 (09:04→21:52)
[2017-09-08] MEDS: Pantoprazole Sodium 20 MG Tablet PO ×2 (09:04→21:52)
--- NOTE | 2017-09-08 09:24 | CASEMGMT ---
Social Work Note ASHLEY met with pt to discuss discharge planning. Pt is from [facility]. Pt's was in the room as well. Per pt and pt's the plan is to return to [facility] at discharge. Pt is scheduled to have surgery today at 13:30pm. ASHLEY faxed clinicals to [facility]. ASHLEY will fax Pt/Ot notes after pt's surgery and after Pt/Ot meets with pt. ASHLEY called [facility] and left a message with admissions informing them of pt's referral. Pt denied additional needs or concerns at this time. Private Inquiry Agent will continue to follow. Plan: Pt return to [facility] pending pre-cert Susanna Aguilar MSW, LABOR DELIVERY RN.
--- NOTE | 2017-09-08 10:30 | PN_ITS ---
Subjective: Patient seen and examined. States he did not sleep well overnight due to being uncomfortable. He states he has a constant pain in his right lower extremity. He states this is not increased from prior and denies need for further pain medication. States he wants to just get the surgery over with. Denies chest pain, shortness of breath. Denies other complaints. - Physical Exam General: Alert, Oriented x3, Cooperative, - - Appears uncomfortable Oral: Dry Mucosa Neck: Supple, No JVD, Negative Carotid Bruits Lungs: Clear to auscultation, Diminished Cardiovascular: Regular rate, Regular Rhythm, Normal S1, Normal S2, No murmurs Abdomen: Bowel Sounds Present, Soft, Non Tender, Non-Distended, Obese Extremities: No clubbing, No cyanosis, No Calf Tenderness, Edema - Nonpitting right lower extremity Skin: No rashes, No breakdown Musculoskeletal: Tenderness - RLE Neurological: Cranial nerves II-XII grossly intact, Neuro grossly intact Psych/Mental Status: Normal Affect, Appropriate Vital Signs Temp Pulse Resp BP Pulse Ox 97.6 F L 74 16 122/67 H 96 09/08/17 09:00 09/08/17 09:00 09/08/17 09:00 09/08/17 09:00 09/08/17 09:00 Oxygen Delivery Method Room Air Weight: 176.901 kg Body Mass Index (BMI) 54.3 Finger Stick Blood Glucose 234 Intake and Output for Last 24 Hours 09/06/17 09/07/17 09/08/17 23:59 23:59 23:59 Intake Total 2400 / 2400 690 / 690 Output Total 1350 / 1350 3550 / 3550 Balance 1050 / 1050 -2860 / -2860 Laboratory Tests Past 24 Hrs 09/07/17 09/07/17 09/07/17 15:51 15:51 15:51 WBC 9.1 RBC 4.34 L Hgb 13.7 Hct 41.3 MCV 95.2 H MCH 31.6 MCHC 33.2 RDW 13.2 RDW Differential 44.5 H Plt Count 344 MPV 9.7 Immature Gran % (Auto) 0.100 Neut % (Auto) 57.7 Lymph % (Auto) 29.5 Harrison % (Auto) 10.6 H Eos % (Auto) 1.3 Baso % (Auto) 0.8 Absolute Neuts (auto) 5.3 Absolute Lymphs (auto) 2.69 Total Counted Not Reportable Sodium 136 Potassium 3.6 Chloride 102 Carbon Dioxide 26.0 Anion Gap 8 BUN 13 Creatinine 0.95 Estim Creat Clear Calc 102.38 Est GFR (MDRD) Af Amer 109 Est GFR (MDRD) Non-Af 90 BUN/Creatinine Ratio 13.7 Glucose 91 Hemoglobin A1c 7.2 H Calcium 8.6 Blood Type Antibody Screen 09/08/17 06:20 WBC RBC Hgb Hct MCV MCH MCHC RDW RDW Differential Plt Count MPV Immature Gran % (Auto) Neut % (Auto) Lymph % (Auto) Harrison % (Auto) Eos % (Auto) Baso % (Auto) Absolute Neuts (auto) Absolute Lymphs (auto) Total Counted Sodium Potassium Chloride Carbon Dioxide Anion Gap BUN Creatinine Estim Creat Clear Calc Est GFR (MDRD) Af Amer Est GFR (MDRD) Non-Af BUN/Creatinine Ratio Glucose Hemoglobin A1c Calcium Blood Type A POSITIVE Antibody Screen NEGATIVE POC Glucose 09/08/17 09/07/17 06:39 22:00 POC Glucose 108 95 Medical Necessity - Tobacco Use Smoking Status: Former smoker Assessment/Plan 1. Medical clearance for recent right distal femoral fracture secondary to mechanical fall-mechanical fall took place 08/23/2017. Chest x-ray completed and was unremarkable. Preoperative EKG sinus rhythm without ST T changes. Patient is low risk for complications from surgery and patient can be cleared medically for surgery. 2. Type 2 diabetes mellitus-hold home regimen. Continue Accu-Cheks before meals at bedtime with sliding scale insulin and Levemir. Hemoglobin A1C 08/24/17 8.0%. Repeat HA1C 7.2%. Patient's home Levemir regimen was decreased due to n.p.o. for surgery. Can be resumed when patient resumes diet. 3. History of pulmonary embolism-on Xarelto. Hold prior to surgery. Recent duplex ultrasound 08/28/2017 showed no evidence of right lower extremity DVT. 4. History of tobacco use states he quit approximately 2 weeks ago. Encouraged continued cessation. 5. Obstructive sleep apnea-follows with Dr. Astorga. Continue BiPAP. 6. Hypertension-stable, continue home regimen of atenolol, lisinopril, HCTZ. 7. Super morbid obesity-encouraged lifestyle and dietary modifications. 8. GERD-continue omeprazole. 9. Chronic back pain-follows with pain management as outpatient. 10. Anxiety/Depression-continue home regimen. 11. Remote history of cardiac arrest with brief CPR following arthroscopic surgery to repair a torn right medial meniscus tear. This occurred during admission January 2016. Cardiology was consulted, Dr. Miranda saw patient during that admission. Suspect secondary to acute pulmonary embolism. Patient had prior stress test and cardiac catheterization in 2014 both which were unremarkable. Cardiac cath 01/2015 showed normal coronary arteries. DVT prophylaxis-Lovenox subcu. This patient was seen by EZEQUIEL Beckwith under the supervision of Dr. Ramesh.
--- NOTE | 2017-09-08 12:11 | NURSING ---
Report called to AC at this time- Patient assisted off unit with 2 staff members from surgery department. IV off pump and infusing, 22 gauge left wrist. Notified of 1mg morphine given 1200 along with BGT= 102 at this time.
[2017-09-08 12:20] LABS: Bedside Glucose 102 mg/dL (70-110)
--- NOTE | 2017-09-08 13:08 | PCA ---
pt off floor
--- NOTE | 2017-09-08 13:30 | RAD_ITS ---
STUDY: X-RAY - RIGHT KNEE REASON FOR EXAM: Male, 46 years old. Intraoperative imaging. TECHNIQUE: AP and lateral view(s) of the knee were obtained intraoperatively. COMPARISON: None. FINDINGS: 2 metallic screws are seen in the medial femoral condyle. RAD/Knee 1 or 2 Views IMPRESSION: 2 metallic screws are seen in the medial femoral condyle. Electronically Signed: Eliazar Funes MD at 14:28 EDT Tel [phone], Service support ,
--- NOTE | 2017-09-08 14:54 | OP.PCM_ITS ---
Report of Operation Date of Procedure: 09/08/17 Pre-Operative Diagnosis: Right distal femur medial posterior condyle fracture Post-Operative Diagnosis: Right distal femur medial posterior condyle fracture Surgery/Procedure Performed:: ORIF Right distal femur medial posterior condyle fracture Description of Surgical Findings:: well reduced fracture athletic trainer: Juany Rodriguez Type of Anesthesia:: General Anesthesiologist: Jt Ojeda Special Medications: 3 gm ancef Estimated Blood Loss (mL): 25 Fluids Replaced: 1000 ml crystalloid Description of Procedure: 46-year-old male fell at the grocery store sustaining a posterior medial femoral condyle shear fracture. Initially the fracture was within acceptable limits. However when he came to the office 2 weeks post injury the fracture showed further displacement. At that time we discussed risks and benefits of surgical intervention for open reduction internal fixation which included but were not limited to blood loss, DVTs, PEs, neurovascular damage, infection, general risk of anesthesia including loss of life. Patient demonstrated understanding. He was admitted to the hospital for preoperative clearance as he did not have a primary care doctor. After obtaining medical clearance patient was ready for surgery the following day. Procedure: On the date of the procedure patient's right knee was marked in the preoperative area. Patient was brought back to the operating room he was transferred to the table in supine position. Anesthesia assumed control the C- spine airway and remained controlled throughout the remainder the procedure. All bony prominences were identified well-padded and patient was anesthetized by anesthesia. He was placed on right upper thigh. Surgeon scrubbed and right lower extremity was prepped in a sterile fashion. Upon reentering the room the right lower extremity was draped in standard orthopedic fashion and a timeout was called. When agreed upon the side, the site from the procedure be performed, patient identity and antibiotics given. Incision was marked out. Esmarch bandage used to obtain it extremity and tourniquet was placed up to 300 mmHg. Incision was taken at the skin subtenons tissue fat down to fascia. Once the fascia was identified a standard medial parapatellar arthrotomy was made. We are very careful not to cut through the tendon and injure the underlying cartilage. We also are very careful to maintain the integrity of the medial meniscus. Once the arthrotomy was made and he was flexed up and the fracture be identified. Wound was copiously reviewed out normal saline. [place] was used to help reduce the fracture. Fracture was best reduced with the knee in flexion. 2 K wires were placed for cannulated screws. Once these K wires are placed and he was placed in extension and fracture reduction was maintained. Using the K wire depth gauge 2 60 mm screws were selected. These screws were advanced by hand to compress the fracture. There were then countersunk in an appropriate manner. After the 2 screws were placed live x-ray was used to verify fracture reduction. We also took the knee through rotational motion in order to verify that the screws were not protruding through the bone on projectional views. Once we are happy with the placement of the screws final AP and lateral radiographs were taken. Knee was flexed up and fracture reduction was verified. Stability of the fracture was also verified. Once this was completed wound was copiously irrigated out normal saline. Aqua Mantis was used to obtain hemostasis. Once wound is clean and dry it was once again irrigated out with normal saline and #1 Vicryl was used to close the arthrotomy. First with interrupted sutures then with running suture. Once this was done 2-0 Vicryl was used to close the skin. Final skin closure was done with anne marie. Silver dressing was placed. Compressive dressing was placed. Knee was placed in a knee immobilizer. Patient was awakened by anesthesia and transferred to PACU for recovery. Plan for this patient: Nonweightbearing for a total 6 weeks. Patient has no restrictions on range of motion. We will start 50% weightbearing at 6 week. Grafts/Implants Used: 4.0 mm synthes headless - Complications none - Admit VTE Documentation VTE Present on Admission: No VTE Mechan Device Prophylaxis: SCD's, Thigh High ELVIN Hose VTE Pharm Prophylaxis ordered?: Yes
--- NOTE | 2017-09-08 15:27 | PCA ---
PT OFF FLOOR
[2017-09-08 15:50] LABS: Bedside Glucose 146 mg/dL (70-110)
[2017-09-08] MEDS: Lisinopril 10 MG Tablet PO (18:06)
[2017-09-08] MEDS: Gabapentin 600 MG Tablet PO (18:06)
[2017-09-08] MEDS: Sertraline 50 MG Tablet PO (18:06)
[2017-09-08] MEDS: HYDROCHLOROTHIAZIDE 12.5 MG CAPSULE PO (18:06)
[2017-09-08] MEDS: Furosemide 20 MG Tablet PO (18:06)
[2017-09-08] MEDS: Glucerna Shake 120 ML LIQUID PO (18:10)
[2017-09-08] MEDS: metFORMIN HCl 1,000 MG Tablet 1000 MG PO (18:11)
[2017-09-08] MEDS: Ketorolac 15 MG/ML Vial IV (19:42)
[2017-09-08] MEDS: oxyCODONE CR 15 MG Tablet 30 MG PO (21:52)
[2017-09-08] MEDS: LORazepam 1 MG Tablet PO (21:52)
[2017-09-08] MEDS: Docusate Sodium 100 MG Capsule PO (21:54)
[2017-09-08] MEDS: Cefazolin 1 GM/50 ML BAG IV (21:54)
[2017-09-08] MEDS: Senna/Docusate Sodium 1 Tablet 2 TABLET PO (21:55)
[2017-09-08] MEDS: Varenicline 0.5 MG Tablet PO (21:55)
[2017-09-08] MEDS: Acetaminophen 500 MG Tablet 1000 MG PO (21:55)
[2017-09-08 22:06] LABS: Bedside Glucose 128 mg/dL (70-110)
[2017-09-09] VITALS (7 sets, daily range): BP systolic 102–118; BP diastolic 61–70; PULSE 73–83; RESP 18–20; TEMP 36.5–37.2; O2SAT 95–99
[2017-09-09] MEDS: 0.9% NaCl Peripheral Flush Adult/Peds IV ×4 (02:41→20:40)
[2017-09-09] MEDS: Ketorolac 15 MG/ML Vial IV (02:41)
[2017-09-09] MEDS: oxyCODONE 5 MG Tablet 10 MG PO ×4 (03:58→19:30)
[2017-09-09] MEDS: Acetaminophen 500 MG Tablet 1000 MG PO ×3 (05:39→22:10)
[2017-09-09] MEDS: Cefazolin 1 GM/50 ML BAG IV (05:40)
[2017-09-09 06:50] LABS: Bedside Glucose 102 mg/dL (70-110)
[2017-09-09 07:19] LABS: Hematocrit 39.3 % (40-54); Hemoglobin 13.1 g/dl (13.0-16.5); Mean Corp Hgb Conc 33.3 g/gl (32-36); Mean Corpuscular Hgb 31.9 pg (27.0-32.0); Mean Corpuscular Volume 95.6 fL (80-94); Mean Platelet Vol. 9.6 fl (6.2-12.0); Platelet Count 359 K/mm3 (150-450); RBC Distribution Width CV 13.3 % (11.6-14.6); RBC Distribution Width SD 44.8 fl (35.1-43.9); Red Blood Count 4.11 M/mm3 (4.6-6.2); Scan Indicated on CBC? Y/N NO; White Blood Count 11.8 K/mm3 (4.4-11.0)
[2017-09-09 07:47] LABS: Anion Gap 8 (5-15); BUN 14 mg/dL (7-18); BUN/Creat Ratio 13.6 RATIO (10-20); Calcium,Total 8.4 mg/dL (8.5-10.1); Chloride 102 mmol/L (98-107); Creatinine, Serum 1.03 mg/dL (0.70-1.30); EST Glomerular Filtration Rate 82 mL/min (>60); Est Glom Filt Rate - Afr Amer 99 mL/min (>60); Estimated Creatinine Clearance 91.55 ml/min; Glucose 96 mg/dL (74-106); Potassium 3.9 mmol/L (3.5-5.1); Sodium Level 135 mmol/L (136-145)
[2017-09-09] MEDS: Rivaroxaban 20 MG Tablet PO (08:12)
[2017-09-09] MEDS: Gabapentin 600 MG Tablet PO ×3 (08:12→17:17)
--- NOTE | 2017-09-09 08:12 | PCM.PN.ORT ---
Subjective: Patient is doing well postoperatively. Pain is controlled at this time. Sitting up in a chair able to flex and extend the knee comfortably. Patient's initial order was for weightbearing as tolerated he did ambulate with protected weightbearing yesterday remains comfortable this morning. No chest pain or shortness of breath. No calf pain. - Physical Exam General: Alert, Oriented x3, Cooperative Extremities: - - Right lower extremity: Dressing is clean dry and intact Sensations intact to light touch saphenous, sural, superficial peroneal, deep peroneal, and tibial distributions Motors intact EHL, DF, PF calves are soft and supple Vital Signs Temp Pulse Resp BP Pulse Ox 97.7 F L 83 18 105/66 99 09/09/17 02:15 09/09/17 02:15 09/09/17 02:15 09/09/17 02:15 09/09/17 02:15 Oxygen Flow Rate (L/min) 3 Oxygen Delivery Method Nasal Cannula Weight: 389 lb 15.964 oz Body Mass Index (BMI) 54.6 Finger Stick Blood Glucose 146 Intake and Output for Last 24 Hours 09/07/17 09/08/17 09/09/17 23:59 23:59 23:59 Intake Total 2400 / 2400 3882 / 3882 240 / 240 Output Total 1350 / 1350 6575 / 6575 700 / 700 Balance 1050 / 1050 -2693 / -2693 -460 / -460 Laboratory Tests Past 24 Hrs 09/08/17 09/09/17 09/09/17 06:20 06:45 06:45 WBC 11.8 H RBC 4.11 L Hgb 13.1 Hct 39.3 L MCV 95.6 H MCH 31.9 MCHC 33.3 RDW 13.3 RDW Differential 44.8 H Plt Count 359 MPV 9.6 Sodium 135 L Potassium 3.9 Chloride 102 Carbon Dioxide 25.0 Anion Gap 8 BUN 14 Creatinine 1.03 Estim Creat Clear Calc 91.55 Est GFR (MDRD) Af Amer 99 Est GFR (MDRD) Non-Af 82 BUN/Creatinine Ratio 13.6 Glucose 96 Calcium 8.4 L Blood Type A POSITIVE Antibody Screen NEGATIVE POC Glucose 09/09/17 09/08/17 09/08/17 06:41 21:53 15:44 POC Glucose 102 128 H 146 H 09/08/17 11:59 POC Glucose 102 Medical Necessity - Tobacco Use Smoking Status: Former smoker Assessment/Plan Stop day 1 ORIF right posterior medial distal femoral condyle 1. PT: Nonweightbearing right lower extremity, patient's only criteria for admission right now is difficulty with ambulation and need for assistance with ADLs. Will have physical therapy work with him twice a day over the weekend to maximize his recovery. 2. DVT prophylaxis: Patient is on full anticoagulation, Xarelto 20 mg daily for previous PE 3. Pain control: Pain currently under control continue current regimen will need weaned from extended release narcotics in the future. 4. Disposition: Current plan is for [facility] to [facility] facility or patient was previously. Waiting preserved. The patient demonstrates recovery and independence may be ready for discharge home prior to obtaining preserved. Patient's preference for discharge home if appropriate. [facility] Office:
[2017-09-09] MEDS: metFORMIN HCl 1,000 MG Tablet 1000 MG PO ×2 (08:13→17:17)
[2017-09-09] MEDS: Glucerna Shake 120 ML LIQUID PO ×3 (08:14→17:16)
--- NOTE | 2017-09-09 08:45 | RAD_ITS ---
STUDY: X-RAY - RIGHT KNEE REASON FOR EXAM: Male, 46 years old. Postoperative exam. TECHNIQUE: 3 view(s) of the knee. COMPARISON: 08/23/2017. FINDINGS: There are 2 surgical screws traversing the medial femoral condyle. Normal visualized proximal tibia and fibula. Normal proximal tibiofibular articulation. There is no demonstrated acute fracture. Normal medial femorotibial compartment. Normal lateral femorotibial compartment. Normal patellofemoral articulation. There again is moderate effusion in the suprapatellar joint space. There is soft tissue swelling and edema. There is gas in the soft tissues consistent with recent surgery. There are skin anne marie. RAD/Knee 1 or 2 Views IMPRESSION: Postoperative exam as described above. Electronically Signed: Saeed Bahena MD at 10:41 EDT Tel , Service support ,
--- NOTE | 2017-09-09 09:46 | PCM.PROGNOTE ---
Subjective: Patient seen and examined. States pain is well controlled. Denies chest pain, shortness of breath. Denies fever, chills. Patient states plan is to have physical therapy over the weekend and decide whether to return to [facility] facility versus home at discharge with plans of discharge 09/11/17. - Physical Exam General: Alert, Oriented x3, Cooperative HEENT: Atraumatic, PERRLA, EOMI, Normocephalic Neck: Supple, No JVD, Negative Carotid Bruits Lungs: Clear to auscultation, Diminished Cardiovascular: Regular rate, Regular Rhythm, Normal S1, Normal S2, No murmurs Abdomen: Bowel Sounds Present, Soft, Non Tender, Non-Distended, Obese Extremities: No clubbing, No cyanosis, Edema - Minimal, RLE Skin: No rashes, No breakdown, - - RLE post op dressing intact without drainage. Musculoskeletal: No Tenderness to Palpation of Joints or Extremities Neurological: Cranial nerves II-XII grossly intact, Neuro grossly intact Psych/Mental Status: Normal Affect, Appropriate Vital Signs Temp Pulse Resp BP Pulse Ox 98.1 F 80 18 102/67 95 09/09/17 08:15 09/09/17 08:15 09/09/17 09:00 09/09/17 08:15 09/09/17 08:15 Oxygen Flow Rate (L/min) 3 Oxygen Delivery Method Room Air Weight: 176.9 kg Body Mass Index (BMI) 54.6 Finger Stick Blood Glucose 146 Intake and Output for Last 24 Hours 09/07/17 09/08/17 09/09/17 23:59 23:59 23:59 Intake Total 2400 / 2400 3882 / 3882 240 / 240 Output Total 1350 / 1350 6575 / 6575 700 / 700 Balance 1050 / 1050 -2693 / -2693 -460 / -460 Laboratory Tests Past 24 Hrs 09/09/17 09/09/17 06:45 06:45 WBC 11.8 H RBC 4.11 L Hgb 13.1 Hct 39.3 L MCV 95.6 H MCH 31.9 MCHC 33.3 RDW 13.3 RDW Differential 44.8 H Plt Count 359 MPV 9.6 Sodium 135 L Potassium 3.9 Chloride 102 Carbon Dioxide 25.0 Anion Gap 8 BUN 14 Creatinine 1.03 Estim Creat Clear Calc 91.55 Est GFR (MDRD) Af Amer 99 Est GFR (MDRD) Non-Af 82 BUN/Creatinine Ratio 13.6 Glucose 96 Calcium 8.4 L POC Glucose 09/09/17 09/08/17 09/08/17 06:41 21:53 15:44 POC Glucose 102 128 H 146 H 09/08/17 11:59 POC Glucose 102 Medical Necessity - Tobacco Use Smoking Status: Former smoker Assessment/Plan 1. S/P ORIF right distal femur 09/08/[address] Rodriguez for repair of right distal femur medial posterior condyle fracture secondary to mechanical fall prior to admission. PT/OT. Continue current as needed and scheduled pain regimen. Nonweightbearing right lower extremity. Plan for discharge Monday to SNF versus home pending physical therapy evaluation. 2. Type 2 diabetes mellitus-hold home regimen. Continue Accu-Cheks before meals at bedtime with sliding scale insulin and Levemir. Hemoglobin A1C 08/24/17 8.0%. Repeat HA1C 7.2%. 3. History of pulmonary embolism-Xarelto resumed. Recent duplex ultrasound 08/28/2017 showed no evidence of right lower extremity DVT. 4. History of tobacco use states he quit approximately 2 weeks ago. Encouraged continued cessation. 5. Obstructive sleep apnea-follows with Dr. Astorga. Continue BiPAP. 6. Hypertension-stable, continue home regimen of atenolol, lisinopril, HCTZ. 7. Super morbid obesity-encouraged lifestyle and dietary modifications. 8. GERD-continue omeprazole. 9. Chronic back pain-follows with pain management as outpatient. 10. Anxiety/Depression-continue home regimen. 11. Remote history of cardiac arrest with brief CPR following arthroscopic surgery to repair a torn right medial meniscus tear. This occurred during admission January 2016. Cardiology was consulted, Dr. Miranda saw patient during that admission. Suspect secondary to acute pulmonary embolism. Patient had prior stress test and cardiac catheterization in 2014 both which were unremarkable. Cardiac cath 01/2015 showed normal coronary arteries. EKG this admission without ST-T changes. Discharge planning-SNF versus home pending physical therapy evaluation over the weekend. DVT prophylaxis-Xarelto This patient was seen by EZEQUIEL Beckwith under the supervision of Dr. Ramesh.
[2017-09-09] MEDS: Pantoprazole Sodium 20 MG Tablet PO ×2 (10:27→22:09)
[2017-09-09] MEDS: LORazepam 1 MG Tablet PO ×2 (10:27→22:04)
[2017-09-09] MEDS: Docusate Sodium 100 MG Capsule PO ×2 (10:27→22:10)
[2017-09-09] MEDS: oxyCODONE CR 15 MG Tablet 30 MG PO ×2 (10:27→22:04)
[2017-09-09] MEDS: Senna/Docusate Sodium 1 Tablet 2 TABLET PO ×2 (10:28→22:10)
[2017-09-09] MEDS: Sertraline 50 MG Tablet PO (10:28)
[2017-09-09] MEDS: Atenolol 50 MG Tablet PO ×2 (10:28→22:10)
[2017-09-09] MEDS: Famotidine 20 MG Tablet PO (10:29)
[2017-09-09] MEDS: Furosemide 20 MG Tablet PO (10:29)
[2017-09-09] MEDS: HYDROCHLOROTHIAZIDE 12.5 MG CAPSULE PO (10:30)
[2017-09-09] MEDS: Varenicline 0.5 MG Tablet PO ×2 (10:31→22:09)
[2017-09-09] MEDS: Lisinopril 10 MG Tablet PO (10:32)
[2017-09-09 11:31] LABS: Bedside Glucose 84 mg/dL (70-110)
--- NOTE | 2017-09-09 14:20 | CASEMGMT ---
Social Work Faxed PT/OT noted to [facility]. Pending precert. Social Work to follow up with on Monday. Ilana DOWNING, [employer]
[2017-09-09] MEDS: Ketorolac 30 MG/ML Syringe 15 MG IV (15:40)
[2017-09-09 17:26] LABS: Bedside Glucose 126 mg/dL (70-110)
[2017-09-09] MEDS: Morphine 2 MG/ML Syringe 1 MG IV (20:40)
[2017-09-09 22:36] LABS: Bedside Glucose 92 mg/dL (70-110)
[2017-09-10] MEDS: oxyCODONE 5 MG Tablet 10 MG PO ×2 (01:30→05:29)
[2017-09-10] MEDS: Morphine 2 MG/ML Syringe 1 MG IV (02:46)
[2017-09-10] MEDS: 0.9% NaCl Peripheral Flush Adult/Peds IV ×3 (02:46→15:21)
[2017-09-10 03:00] VITALS: BP 120/62; PULSE 79; RESP 16; TEMP 37.2; O2SAT 94
[2017-09-10] MEDS: Acetaminophen 500 MG Tablet 1000 MG PO ×3 (05:43→22:48)
--- NOTE | 2017-09-10 06:50 | NURSING ---
Reviewed MARTY Aguiar charting.
[2017-09-10 06:51] LABS: Bedside Glucose 101 mg/dL (70-110)
[2017-09-10 07:36] LABS: Hemoglobin 13.3 g/dl (13.0-16.5); Mean Corp Hgb Conc 33.3 g/gl (32-36); Mean Corpuscular Hgb 31.5 pg (27.0-32.0); Mean Corpuscular Volume 94.8 fL (80-94); Platelet Count 332 K/mm3 (150-450); RBC Distribution Width CV 13.4 % (11.6-14.6); RBC Distribution Width SD 46.8 fl (35.1-43.9); Red Blood Count 4.22 M/mm3 (4.6-6.2); White Blood Count 9.8 K/mm3 (4.4-11.0)
[2017-09-10 07:52] LABS: Scan Indicated on CBC? Y/N NO
[2017-09-10 08:16] LABS: Anion Gap 6 (5-15); BUN 17 mg/dL (7-18); BUN/Creat Ratio 16.3 RATIO (10-20); Calcium,Total 8.5 mg/dL (8.5-10.1); Chloride 103 mmol/L (98-107); Creatinine, Serum 1.04 mg/dL (0.70-1.30); EST Glomerular Filtration Rate 81 mL/min (>60); Est Glom Filt Rate - Afr Amer 98 mL/min (>60); Estimated Creatinine Clearance 90.67 ml/min; Glucose 95 mg/dL (74-106); Sodium Level 136 mmol/L (136-145)
[2017-09-10] MEDS: metFORMIN HCl 1,000 MG Tablet 1000 MG PO ×2 (08:20→16:51)
[2017-09-10] MEDS: Rivaroxaban 20 MG Tablet PO (08:20)
[2017-09-10] MEDS: Gabapentin 600 MG Tablet PO ×3 (08:21→16:51)
[2017-09-10] MEDS: Glucerna Shake 120 ML LIQUID PO ×3 (08:21→16:52)
--- NOTE | 2017-09-10 08:44 | RAD_ITS ---
STUDY: X-RAY - RIGHT KNEE REASON FOR EXAM: Male, 46 years old. Knee pain. TECHNIQUE: 2 view(s) of the knee. COMPARISON: 09/09/2017. FINDINGS: There again are 2 surgical screws traversing the medial femoral condyle. Normal visualized proximal tibia and fibula. Normal proximal tibiofibular articulation. Normal medial femorotibial compartment. Normal lateral femorotibial compartment. Normal patellofemoral articulation. Is probable effusion in the suprapatellar joint space. There again are skin anne marie. Gas in the soft tissues are seen likely due to recent surgery. There is soft tissue swelling. RAD/Knee 1 or 2 Views IMPRESSION: Postoperative changes. No significant change. Electronically Signed: Saeed Bahena MD at 12:15 EDT Tel , Service support ,
[2017-09-10] MEDS: oxyCODONE CR 15 MG Tablet 30 MG PO ×2 (09:28→22:47)
[2017-09-10] MEDS: LORazepam 1 MG Tablet PO ×2 (09:28→22:48)
[2017-09-10] MEDS: Docusate Sodium 100 MG Capsule PO ×2 (09:29→22:49)
[2017-09-10] MEDS: Varenicline 0.5 MG Tablet PO ×2 (09:29→22:49)
[2017-09-10] MEDS: Pantoprazole Sodium 20 MG Tablet PO ×2 (09:29→22:52)
[2017-09-10] MEDS: Senna/Docusate Sodium 1 Tablet 2 TABLET PO ×2 (09:29→22:52)
[2017-09-10] MEDS: HYDROCHLOROTHIAZIDE 12.5 MG CAPSULE PO (09:30)
[2017-09-10] MEDS: Furosemide 20 MG Tablet PO (09:30)
[2017-09-10] MEDS: Famotidine 20 MG Tablet PO (09:30)
[2017-09-10] MEDS: Atenolol 50 MG Tablet PO ×2 (09:30→22:53)
[2017-09-10] MEDS: Lisinopril 10 MG Tablet PO (09:31)
[2017-09-10] MEDS: Sertraline 50 MG Tablet PO (09:32)
[2017-09-10] MEDS: Morphine 2 MG/ML Syringe IV ×2 (09:49→15:21)
[2017-09-10 10:21] VITALS: BP 142/77; PULSE 84; RESP 18; TEMP 36.8; O2SAT 97
[2017-09-10 11:41] LABS: Bedside Glucose 110 mg/dL (70-110)
[2017-09-10] MEDS: oxyCODONE 5 MG Tablet 15 MG PO ×3 (12:39→21:02)
--- NOTE | 2017-09-10 12:48 | PCM.PROGNOTE ---
Subjective: Patient seen and examined. Patient is upset with nursing staff stating he does not feel he has been getting adequate pain control. He states pain is worse than when he fell and broke his leg initially. He states yesterday morning when he was ambulating, he felt a popping sensation and has had increased pain since that time. He also notes redness and warmth of the right lower extremity. Denies fever, chills. Sensory intact. Denies other complaints. - Physical Exam General: Alert, Oriented x3, Cooperative, No apparent distress HEENT: Atraumatic, PERRLA, EOMI, Normocephalic Neck: Supple, No JVD, Negative Carotid Bruits Lungs: Clear to auscultation, Diminished Cardiovascular: Regular rate, Regular Rhythm, Normal S1, Normal S2, No murmurs Abdomen: Bowel Sounds Present, Soft, Non Tender, Non-Distended, Obese Extremities: No clubbing, No cyanosis, Edema - Right lower extremity Skin: - - Marked redness/warmth surrounding postop dressing which is intact without signs of drainage. Musculoskeletal: Tenderness - RLE Neurological: Cranial nerves II-XII grossly intact, Neuro grossly intact Psych/Mental Status: Normal Affect, Appropriate Vital Signs Temp Pulse Resp BP Pulse Ox 98.2 F 84 18 142/77 H 97 09/10/17 10:21 09/10/17 10:21 09/10/17 10:21 09/10/17 10:21 09/10/17 10:21 Oxygen Flow Rate (L/min) 3 Oxygen Delivery Method Room Air Weight: 176.9 kg Body Mass Index (BMI) 54.6 Finger Stick Blood Glucose 146 Intake and Output for Last 24 Hours 09/08/17 09/09/17 09/10/17 23:59 23:59 23:59 Intake Total 3882 / 3882 2100 / 2100 3010 / 3010 Output Total 6575 / 6575 2725 / 2725 2350 / 2350 Balance -2693 / -2693 -625 / -625 660 / 660 Laboratory Tests Past 24 Hrs 09/10/17 09/10/17 07:25 07:25 WBC 9.8 RBC 4.22 L Hgb 13.3 Hct 40.0 MCV 94.8 H MCH 31.5 MCHC 33.3 RDW 13.4 RDW Differential 46.8 H Plt Count 332 MPV 9.0 Sodium 136 Potassium 4.0 Chloride 103 Carbon Dioxide 27.0 Anion Gap 6 BUN 17 Creatinine 1.04 Estim Creat Clear Calc 90.67 Est GFR (MDRD) Af Amer 98 Est GFR (MDRD) Non-Af 81 BUN/Creatinine Ratio 16.3 Glucose 95 Calcium 8.5 POC Glucose 09/10/17 09/10/17 09/09/17 11:38 06:44 22:03 POC Glucose 110 101 92 09/09/17 17:15 POC Glucose 126 H Medical Necessity - Tobacco Use Smoking Status: Former smoker Assessment/Plan 1. S/P ORIF right distal femur 09/08/[address] Rodriguez for repair of right distal femur medial posterior condyle fracture secondary to mechanical fall prior to admission. PT/OT. Continue current as needed and scheduled pain regimen. Nonweightbearing right lower extremity. Plan for discharge Monday to SNF versus home pending physical therapy evaluation. Patient complains of increased right knee pain and reported popping sensation in the right lower extremity while ambulating yesterday. X-ray of the right knee shows postoperative changes, no significant change. There is marked erythema and warmth surrounding postop dressing which is dry and intact. Redness is marked. Continue to monitor. No leukocytosis. Afebrile. 2. Type 2 diabetes mellitus-hold home regimen. Continue Accu-Cheks before meals at bedtime with sliding scale insulin and Levemir. Hemoglobin A1C 08/24/17 8.0%. Repeat HA1C 7.2%. 3. History of pulmonary embolism-Xarelto resumed. Recent duplex ultrasound 08/28/2017 showed no evidence of right lower extremity DVT. 4. History of tobacco use states he quit approximately 2 weeks ago. Encouraged continued cessation. 5. Obstructive sleep apnea-follows with Dr. Astorga. Continue BiPAP. 6. Hypertension-stable, continue home regimen of atenolol, lisinopril, HCTZ. 7. Super morbid obesity-encouraged lifestyle and dietary modifications. 8. GERD-continue omeprazole. 9. Chronic back pain-follows with pain management as outpatient. 10. Anxiety/Depression-continue home regimen. 11. Remote history of cardiac arrest with brief CPR following arthroscopic surgery to repair a torn right medial meniscus tear. This occurred during admission January 2016. Cardiology was consulted, Dr. Miranda saw patient during that admission. Suspect secondary to acute pulmonary embolism. Patient had prior stress test and cardiac catheterization in 2014 both which were unremarkable. Cardiac cath 01/2015 showed normal coronary arteries. EKG this admission without ST-T changes. Discharge planning-SNF versus home pending physical therapy evaluation over the weekend. DVT prophylaxis-Xarelto This patient was seen by EZEQUIEL Beckwith under the supervision of Dr. Ramesh.
--- NOTE | 2017-09-10 13:04 | PN.ORTHO_ITS ---
Subjective: Patient doing well. Increased pain now that block as resolved. Having difficulty with ambulation does not feel he will be able to return home safely. With increased weightbearing restrictions requiring increased assistance. No chest pain or shortness of breath. - Physical Exam General: Alert, Oriented x3, Cooperative Extremities: - - Lower extremity: Dressing clean dry and intact. Knee full extension, flexion to 90?. NVID Vital Signs Temp Pulse Resp BP Pulse Ox 98.2 F 84 18 142/77 H 97 09/10/17 10:21 09/10/17 10:21 09/10/17 10:21 09/10/17 10:21 09/10/17 10:21 Oxygen Flow Rate (L/min) 3 Oxygen Delivery Method Room Air Weight: 389 lb 15.964 oz Body Mass Index (BMI) 54.6 Finger Stick Blood Glucose 146 Intake and Output for Last 24 Hours 09/08/17 09/09/17 09/10/17 23:59 23:59 23:59 Intake Total 3882 / 3882 2100 / 2100 3010 / 3010 Output Total 6575 / 6575 2725 / 2725 2350 / 2350 Balance -2693 / -2693 -625 / -625 660 / 660 Laboratory Tests Past 24 Hrs 09/10/17 09/10/17 07:25 07:25 WBC 9.8 RBC 4.22 L Hgb 13.3 Hct 40.0 MCV 94.8 H MCH 31.5 MCHC 33.3 RDW 13.4 RDW Differential 46.8 H Plt Count 332 MPV 9.0 Sodium 136 Potassium 4.0 Chloride 103 Carbon Dioxide 27.0 Anion Gap 6 BUN 17 Creatinine 1.04 Estim Creat Clear Calc 90.67 Est GFR (MDRD) Af Amer 98 Est GFR (MDRD) Non-Af 81 BUN/Creatinine Ratio 16.3 Glucose 95 Calcium 8.5 POC Glucose 09/10/17 09/10/17 09/09/17 11:38 06:44 22:03 POC Glucose 110 101 92 09/09/17 17:15 POC Glucose 126 H Medical Necessity - Tobacco Use Smoking Status: Former smoker Assessment/Plan Stop day 2 ORIF right posterior medial distal femoral condyle 1. PT: Nonweightbearing right lower extremity, patient's only criteria for admission right now is difficulty with ambulation and need for assistance with ADLs. Will have physical therapy work with him twice a day over the weekend to maximize his recovery. 2. DVT prophylaxis: Patient is on full anticoagulation, Xarelto 20 mg daily for previous PE 3. Pain control: Pain currently under control continue current regimen will need weaned from extended release narcotics in the future. 4. Disposition: Current plan is [facility] or patient was previously. Waiting precertification. [facility] Office:
--- NOTE | 2017-09-10 13:04 | PCM.DC.TKR ---
Discharge Diet: No Restrictions Discharge Activity: May Not Drive May shower in (days): 2 Ice area for (Minutes): 20 - every hour while awake. Weight Bearing Status: No weight bearing - RLE Elevate: Operative Extremity Additional Activity Instructions:: Wear elastic stockings for 2 weeks after your surgery. Call your doctor if your incision/area has: Continuous Slow Oozing, Sudden Increased Bleeding, Increased Pain/ Swelling, Increased Redness, Foul Smelling Discharge Call your doctor if you observe: Fever of 101 or Higher, Coldness, Increased Pain, Numbness or Tingling, Change in Color, Calf discomfort, Uncontrolled pain Remove Dressing in (days):: 09-13-2017 Cleanse incision/area with: Soap & Water Additional Dressing/Incision Instructions:: If incision is clean dry and intact may leave the wound open to air and continue showering. If there is continued drainage continue daily dry dressing changes and keep incision clean dry and intact until there is no drainage. Allergies/Adverse Reactions: Allergies quinine Allergy (Verified 08/23/17 16:17) Hives Medications to take at Discharge Albuterol IH (ProAir) [Proair Hfa] 2 puff INHALATION Q4H PRN PRN #1 inhaler 08/09/17 Cyclobenzaprine [Flexeril] 10 mg PO TID PRN #30 tab 08/09/17 Furosemide [Lasix] 20 mg PO DAILY #60 tab 08/09/17 Insulin Detemir [Levemir FlexPen] 20 units SC BID #60 insuln.pen 08/09/17 Lisinopril/Hydrochlorothiazide [Zestoretic 10/12.5 Tablet] 1 tab PO DAILY #60 tab 08/09/17 Omeprazole [Prilosec] 20 mg PO BID #120 cap 08/09/17 Sertraline HCl [Zoloft] 50 mg PO DAILY #60 tab 08/09/17 Gabapentin [Neurontin] 600 mg PO TIDCM 08/23/17 Metformin HCl [Glucophage] 1,000 mg PO BIDCM 08/23/17 Varenicline Tartrate [Chantix] 0.5 mg PO BID 08/23/17 Docusate Sodium [Colace] 100 mg PO BID capsule 08/29/17 Acetaminophen [Tylenol Tablet] 650 mg PO Q8H PRN PRN 09/07/17 Atenolol [Tenormin (beta tamar)] 50 mg PO BID 09/07/17 Lorazepam [Ativan] 1 mg PO QHS 09/07/17 Magnesium Hydroxide [Milk Of Magnesia] 30 ml PO DAILY PRN PRN 09/07/17 Ondansetron HCl [Zofran] 4 mg PO Q6H PRN 09/07/17 Rivaroxaban [Xarelto] 1 tab PO DAILY 09/07/17 Acetaminophen [Tylenol] 1,000 mg PO Q8 tablet 09/10/17 Glucerna Shake 120 ml PO TIDCM liquid 09/10/17 Oxycodone CR [Oxycontin] 30 mg PO BID 5 Days #10 tab 09/10/17 Oxycodone [Oxyir] 15 mg PO Q4H PRN PRN 4 Days #60 tablet 09/10/17 The following prescriptions were given: Oxycodone [Oxyir] 15 mg PO Q4H PRN PRN 4 Days #60 tablet PRN Reason: Severe Pain (6-10/10) Oxycodone CR [Oxycontin] 30 mg PO BID 5 Days #10 tab Primary Care Physician: London Barkley MD [Primary Care Provider] - Please Follow Up With: Waqas Rodriguez MD When: 2 weeks post op
[2017-09-10 15:31] VITALS: BP 117/74; PULSE 91; RESP 18; TEMP 37; O2SAT 97
--- NOTE | 2017-09-10 20:30 | NURSING ---
Pt called out and spoke to charge nurse requesting pain meds. Unable to give oxyir at this time which the med he is requesting. Nurse brought back flexeril, and patient refused it because he wanted to take it with oxyir. Nurse explained that there would be a delay in giving the routine oxycodone and ativan at hs. He stated it would be okay to give at 2300, and he would want the oxyir at 0200. Nurse encouraged patient to refocus his thoughts to something other than pain. Nurse reminded patient that getting adequate sleep is part of the healing process. He yelled, I can't sleep and get comfortable d/t pain. Pt had slept in recliner all night last evening. Pt currently has the polar care off. He stated that it causes tingling to his rt knee. Nurse explained that the polar care is beneficial in reducing swelling which in turns helps with reducing pain in his knee. He agreed to have the polar care placed back on.
[2017-09-10 21:36] LABS: Bedside Glucose 100 mg/dL (70-110)
[2017-09-10 22:45] VITALS: BP 137/85; PULSE 95; RESP 18; TEMP 36.7; O2SAT 97
[2017-09-10 23:15] LABS: Bedside Glucose 91 mg/dL (70-110)
[2017-09-11] MEDS: Morphine 2 MG/ML Syringe IV (00:42)
[2017-09-11] MEDS: oxyCODONE 5 MG Tablet 15 MG PO ×6 (02:36→22:32)
[2017-09-11 04:00] VITALS: BP 113/60; PULSE 81; RESP 18; TEMP 35.6; O2SAT 96
[2017-09-11 06:15] LABS: Hematocrit 41.6 % (40-54); Hemoglobin 13.6 g/dl (13.0-16.5); Mean Corp Hgb Conc 32.7 g/gl (32-36); Mean Corpuscular Hgb 31.4 pg (27.0-32.0); Mean Corpuscular Volume 96.1 fL (80-94); Mean Platelet Vol. 9.7 fl (6.2-12.0); Platelet Count 357 K/mm3 (150-450); RBC Distribution Width CV 13.3 % (11.6-14.6); RBC Distribution Width SD 46.8 fl (35.1-43.9); Red Blood Count 4.33 M/mm3 (4.6-6.2); White Blood Count 8.9 K/mm3 (4.4-11.0)
[2017-09-11 06:20] LABS: Bedside Glucose 94 mg/dL (70-110)
[2017-09-11 06:22] LABS: Scan Indicated on CBC? Y/N NO
[2017-09-11 06:27] LABS: Anion Gap 9 (5-15); BUN 15 mg/dL (7-18); BUN/Creat Ratio 16.1 RATIO (10-20); Calcium,Total 8.9 mg/dL (8.5-10.1); Chloride 101 mmol/L (98-107); Creatinine, Serum 0.93 mg/dL (0.70-1.30); EST Glomerular Filtration Rate 92 mL/min (>60); Est Glom Filt Rate - Afr Amer 112 mL/min (>60); Estimated Creatinine Clearance 101.39 ml/min; Glucose 93 mg/dL (74-106); Potassium 4.1 mmol/L (3.5-5.1); Sodium Level 134 mmol/L (136-145)
--- NOTE | 2017-09-11 06:31 | NURSING ---
Read and agreed with MARTY Aguiarsurvival equipment repairer.
[2017-09-11] MEDS: Acetaminophen 500 MG Tablet 1000 MG PO ×3 (06:38→22:49)
--- NOTE | 2017-09-11 06:42 | PCM.PN.ORT ---
Subjective: Patient sitting at bedside, states pain is becoming well-managed. Patient denies chest pain, shortness breath, calf pain, nausea vomiting. No other complaints Objective: Dressing was clean dry intact. Calf is nontender. Negative signs and symptoms of DVT. He has good plantar flexion dorsiflexion of his right foot. Patient's vital signs and labs within normal limits. Patient is afebrile and neurovascularly otherwise intact. - Physical Exam General: Alert, Oriented x3, Cooperative HEENT: PERRLA Oral: Moist Mucosa Neurological: Cranial nerves II-XII grossly intact Psych/Mental Status: Normal Affect, Alert and oriented to time, place, person, mood and affect Vital Signs Temp Pulse Resp BP Pulse Ox 96.1 F L 81 18 113/60 96 09/11/17 04:00 09/11/17 04:00 09/11/17 04:00 09/11/17 04:00 09/11/17 04:00 Oxygen Flow Rate (L/min) 3 Oxygen Delivery Method Room Air Weight: 176.9 kg Body Mass Index (BMI) 54.6 Finger Stick Blood Glucose 146 Intake and Output for Last 24 Hours 09/09/17 09/10/17 09/11/17 23:59 23:59 23:59 Intake Total 2100 / 2100 5510 / 5510 Output Total 2725 / 2725 4975 / 4975 1350 / 1350 Balance -625 / -625 535 / 535 -1350 / -1350 Laboratory Tests Past 24 Hrs 09/10/17 09/10/17 09/11/17 07:25 07:25 05:06 WBC 9.8 8.9 RBC 4.22 L 4.33 L Hgb 13.3 13.6 Hct 40.0 41.6 MCV 94.8 H 96.1 H MCH 31.5 31.4 MCHC 33.3 32.7 RDW 13.4 13.3 RDW Differential 46.8 H 46.8 H Plt Count 332 357 MPV 9.0 9.7 Sodium 136 Potassium 4.0 Chloride 103 Carbon Dioxide 27.0 Anion Gap 6 BUN 17 Creatinine 1.04 Estim Creat Clear Calc 90.67 Est GFR (MDRD) Af Amer 98 Est GFR (MDRD) Non-Af 81 BUN/Creatinine Ratio 16.3 Glucose 95 Calcium 8.5 09/11/17 05:06 WBC RBC Hgb Hct MCV MCH MCHC RDW RDW Differential Plt Count MPV Sodium 134 L Potassium 4.1 Chloride 101 Carbon Dioxide 24.0 Anion Gap 9 BUN 15 Creatinine 0.93 Estim Creat Clear Calc 101.39 Est GFR (MDRD) Af Amer 112 Est GFR (MDRD) Non-Af 92 BUN/Creatinine Ratio 16.1 Glucose 93 Calcium 8.9 POC Glucose 09/11/17 09/10/17 09/10/17 06:16 22:42 16:24 POC Glucose 94 91 100 09/10/17 09/10/17 11:38 06:44 POC Glucose 110 101 Medical Necessity - Tobacco Use Smoking Status: Former smoker Assessment/Plan That is post ORIF right medial condyle fracture Plan 1. Continue all pain medications as prescribed 2. Continue ice and elevation. 3. Continue anticoagulation as prescribed 4. Dr. Rodriguez will see this patient this afternoon for probable discharge today 5. Encourage incentive spirometry
[2017-09-11 09:00] VITALS: BP 113/63; PULSE 95; RESP 18; TEMP 36.4; O2SAT 94
--- NOTE | 2017-09-11 09:27 | CASEMGMT ---
Social Work Note Updated clinicals faxed to [facility]. Placed call to Wen at [facility] stating that pt is ready to be discharged and awaiting pre-cert. Plan: [facility] pending pre-cert Susanna Aguilar SCREENING UNIT REGISTERED NURSE, PLASTIC PROCESS TECHNICIAN
[2017-09-11] MEDS: Gabapentin 600 MG Tablet PO ×3 (09:30→17:46)
[2017-09-11] MEDS: Rivaroxaban 20 MG Tablet PO (09:30)
[2017-09-11] MEDS: metFORMIN HCl 1,000 MG Tablet 1000 MG PO ×2 (09:30→17:46)
[2017-09-11] MEDS: Varenicline 0.5 MG Tablet PO ×2 (09:31→21:27)
[2017-09-11] MEDS: Atenolol 50 MG Tablet PO ×2 (09:32→21:27)
[2017-09-11] MEDS: Pantoprazole Sodium 20 MG Tablet PO ×2 (09:33→21:27)
[2017-09-11] MEDS: Docusate Sodium 100 MG Capsule PO ×2 (09:34→21:27)
[2017-09-11] MEDS: Senna/Docusate Sodium 1 Tablet 2 TABLET PO ×2 (09:35→21:27)
[2017-09-11] MEDS: LORazepam 1 MG Tablet PO ×2 (09:43→22:41)
[2017-09-11] MEDS: oxyCODONE CR 15 MG Tablet 30 MG PO ×2 (09:43→21:32)
--- NOTE | 2017-09-11 10:39 | CASEMGMT ---
Social Work Note Per Nurse, pt was asking about transportation at discharge. SW met with pt to discuss transportation. SW informed pt that [facility] will accept pt and that they are waiting for pre-cert. SW informed pt that once pre-cert is obtained, transportation can be set up. Pt states that [facility] can provide transportation. SW states that once this worker receives call regarding pre-cert, this worker will ask [facility] about transportation. Pt was receptive to this. Plan: [facility] pending pre-cert Susanna Aguilar RN TRAUMA, HOME DESIGNER
[2017-09-11] MEDS: Sertraline 50 MG Tablet PO (11:21)
[2017-09-11] MEDS: HYDROCHLOROTHIAZIDE 12.5 MG CAPSULE PO (11:22)
[2017-09-11] MEDS: Furosemide 20 MG Tablet PO (11:22)
[2017-09-11] MEDS: Famotidine 20 MG Tablet PO (11:22)
[2017-09-11] MEDS: Lisinopril 10 MG Tablet PO (11:22)
[2017-09-11] MEDS: Glucerna Shake 120 ML LIQUID PO ×3 (12:08→17:46)
--- NOTE | 2017-09-11 12:08 | PCM.PROGNOTE ---
<Lydia Riggs - Last Filed: 09/11/17 12:12> Subjective: Patient seen and examined. States right lower extremity pain is improved. Denies fever, chills. Denies other complaints. Plan for discharge to SNF today for further therapy. - Physical Exam General: Alert, Oriented x3, Cooperative, No apparent distress HEENT: Atraumatic, PERRLA, EOMI, Normocephalic Neck: Supple, No JVD, Negative Carotid Bruits Lungs: Clear to auscultation, Diminished Cardiovascular: Regular rate, Regular Rhythm, Normal S1, Normal S2, No murmurs Abdomen: Bowel Sounds Present, Soft, Non Tender, Non-Distended, Obese Extremities: No clubbing, No cyanosis, No edema, Capillary Refill Less than 3 Seconds Skin: No rashes, No breakdown, - - Right knee postop dressing dry and intact. No drainage noted. Mild surrounding erythema which has not worsened. Musculoskeletal: Tenderness - Right lower extremity. Neurological: Cranial nerves II-XII grossly intact, Neuro grossly intact Psych/Mental Status: Normal Affect, Appropriate Vital Signs Temp Pulse Resp BP Pulse Ox 97.6 F L 95 18 113/63 94 09/11/17 09:00 09/11/17 09:00 09/11/17 09:00 09/11/17 09:00 09/11/17 09:00 Oxygen Flow Rate (L/min) 3 Oxygen Delivery Method Room Air Weight: 176.9 kg Body Mass Index (BMI) 54.6 Finger Stick Blood Glucose 146 Intake and Output for Last 24 Hours 09/09/17 09/10/17 09/11/17 23:59 23:59 23:59 Intake Total 2100 / 2100 5510 / 5510 Output Total 2725 / 2725 4975 / 4975 1350 / 1350 Balance -625 / -625 535 / 535 -1350 / -1350 Laboratory Tests Past 24 Hrs 09/11/17 09/11/17 05:06 05:06 WBC 8.9 RBC 4.33 L Hgb 13.6 Hct 41.6 MCV 96.1 H MCH 31.4 MCHC 32.7 RDW 13.3 RDW Differential 46.8 H Plt Count 357 MPV 9.7 Sodium 134 L Potassium 4.1 Chloride 101 Carbon Dioxide 24.0 Anion Gap 9 BUN 15 Creatinine 0.93 Estim Creat Clear Calc 101.39 Est GFR (MDRD) Af Amer 112 Est GFR (MDRD) Non-Af 92 BUN/Creatinine Ratio 16.1 Glucose 93 Calcium 8.9 POC Glucose 09/11/17 09/10/17 09/10/17 06:16 22:42 16:24 POC Glucose 94 91 100 Medical Necessity - Tobacco Use Smoking Status: Former smoker Assessment/Plan 1. S/P ORIF right distal femur 09/08/[address] Rodriguez for repair of right distal femur medial posterior condyle fracture secondary to mechanical fall prior to admission. PT/OT. Continue current as needed and scheduled pain regimen. Nonweightbearing right lower extremity. Plan for discharge 09/11/17 to SNF. Patient reports pain is well controlled. Repeat right knee x-ray yesterday showed postoperative changes, no significant change. 2. Type 2 diabetes mellitus-hold home regimen. Continue Accu-Cheks before meals at bedtime with sliding scale insulin and Levemir. Hemoglobin A1C 08/24/17 8.0%. Repeat HA1C 7.2%. 3. History of pulmonary embolism-Xarelto resumed. Recent duplex ultrasound 08/28/2017 showed no evidence of right lower extremity DVT. 4. History of tobacco use states he quit approximately 2 weeks ago. Encouraged continued cessation. 5. Obstructive sleep apnea-follows with Dr. Astorga. Continue BiPAP. 6. Hypertension-stable, continue home regimen of atenolol, lisinopril, HCTZ. 7. Super morbid obesity-encouraged lifestyle and dietary modifications. 8. GERD-continue omeprazole. 9. Chronic back pain-follows with pain management as outpatient. 10. Anxiety/Depression-continue home regimen. 11. Remote history of cardiac arrest with brief CPR following arthroscopic surgery to repair a torn right medial meniscus tear. This occurred during admission January 2016. Cardiology was consulted, Dr. Miranda saw patient during that admission. Suspect secondary to acute pulmonary embolism. Patient had prior stress test and cardiac catheterization in 2014 both which were unremarkable. Cardiac cath 01/2015 showed normal coronary arteries. EKG this admission without ST-T changes. Discharge planning-SNF when stable per ortho. DVT prophylaxis-Xarelto This patient was seen by EZEQUIEL Beckwith under the supervision of Dr. Davis. <Kayy Davis - Last Filed: 09/11/17 13:56> - Physical Exam Vital Signs Temp Pulse Resp BP Pulse Ox 97.6 F L 95 18 113/63 94 09/11/17 09:00 09/11/17 09:00 09/11/17 09:00 09/11/17 09:00 09/11/17 09:00 Oxygen Flow Rate (L/min) 3 Oxygen Delivery Method Room Air Weight: 176.9 kg Body Mass Index (BMI) 54.6 Finger Stick Blood Glucose 146 Intake and Output for Last 24 Hours 09/09/17 09/10/17 09/11/17 23:59 23:59 23:59 Intake Total 2099 / 2099 5510 / 5510 Output Total 2725 / 2725 4975 / 4975 1350 / 1350 Balance -625 / -625 535 / 535 -1350 / -1350 Laboratory Tests Past 24 Hrs 09/11/17 09/11/17 05:06 05:06 WBC 8.9 RBC 4.33 L Hgb 13.6 Hct 41.6 MCV 96.1 H MCH 31.4 MCHC 32.7 RDW 13.3 RDW Differential 46.8 H Plt Count 357 MPV 9.7 Sodium 134 L Potassium 4.1 Chloride 101 Carbon Dioxide 24.0 Anion Gap 9 BUN 15 Creatinine 0.93 Estim Creat Clear Calc 101.39 Est GFR (MDRD) Af Amer 112 Est GFR (MDRD) Non-Af 92 BUN/Creatinine Ratio 16.1 Glucose 93 Calcium 8.9 POC Glucose 09/11/17 09/11/17 09/10/17 12:06 06:16 22:42 POC Glucose 82 94 91 09/10/17 16:24 POC Glucose 100 Assessment/Plan Patient was seen and examined independently. I agree with the interval history, physical exam and assessment and plan as documented by nurse practitioner, Lydia Riggs. Patient states his pain is much controlled, less than 5/10. Able to ambulate with therapy. No active complaints. Waiting on precertification for discharge to the correction facility. Denies any headache or dizziness or palpitations. Happy with her current pain regimen in controlling his pain. Vitals and labs reviewed - stable. We will continue same medication, pending discharge to the correction facility Code Visit Inpatient E&M: 04905 Subs Hosp L2
--- NOTE | 2017-09-11 12:12 | PN_ITS ---
<Lydia Riggs - Last Filed: 09/11/17 12:12> Subjective: Patient seen and examined. States right lower extremity pain is improved. Denies fever, chills. Denies other complaints. Plan for discharge to SNF today for further therapy. - Physical Exam General: Alert, Oriented x3, Cooperative, No apparent distress HEENT: Atraumatic, PERRLA, EOMI, Normocephalic Neck: Supple, No JVD, Negative Carotid Bruits Lungs: Clear to auscultation, Diminished Cardiovascular: Regular rate, Regular Rhythm, Normal S1, Normal S2, No murmurs Abdomen: Bowel Sounds Present, Soft, Non Tender, Non-Distended, Obese Extremities: No clubbing, No cyanosis, No edema, Capillary Refill Less than 3 Seconds Skin: No rashes, No breakdown, - - Right knee postop dressing dry and intact. No drainage noted. Mild surrounding erythema which has not worsened. Musculoskeletal: Tenderness - Right lower extremity. Neurological: Cranial nerves II-XII grossly intact, Neuro grossly intact Psych/Mental Status: Normal Affect, Appropriate Vital Signs Temp Pulse Resp BP Pulse Ox 97.6 F L 95 18 113/63 94 09/11/17 09:00 09/11/17 09:00 09/11/17 09:00 09/11/17 09:00 09/11/17 09:00 Oxygen Flow Rate (L/min) 3 Oxygen Delivery Method Room Air Weight: 176.9 kg Body Mass Index (BMI) 54.6 Finger Stick Blood Glucose 146 Intake and Output for Last 24 Hours 09/09/17 09/10/17 09/11/17 23:59 23:59 23:59 Intake Total 2100 / 2100 5510 / 5510 Output Total 2725 / 2725 4975 / 4975 1350 / 1350 Balance -625 / -625 535 / 535 -1350 / -1350 Laboratory Tests Past 24 Hrs 09/11/17 09/11/17 05:06 05:06 WBC 8.9 RBC 4.33 L Hgb 13.6 Hct 41.6 MCV 96.1 H MCH 31.4 MCHC 32.7 RDW 13.3 RDW Differential 46.8 H Plt Count 357 MPV 9.7 Sodium 134 L Potassium 4.1 Chloride 101 Carbon Dioxide 24.0 Anion Gap 9 BUN 15 Creatinine 0.93 Estim Creat Clear Calc 101.39 Est GFR (MDRD) Af Amer 112 Est GFR (MDRD) Non-Af 92 BUN/Creatinine Ratio 16.1 Glucose 93 Calcium 8.9 POC Glucose 09/11/17 09/10/17 09/10/17 06:16 22:42 16:24 POC Glucose 94 91 100 Medical Necessity - Tobacco Use Smoking Status: Former smoker Assessment/Plan 1. S/P ORIF right distal femur 09/08/[address] Rodriguez for repair of right distal femur medial posterior condyle fracture secondary to mechanical fall prior to admission. PT/OT. Continue current as needed and scheduled pain regimen. Nonweightbearing right lower extremity. Plan for discharge 09/11/17 to SNF. Patient reports pain is well controlled. Repeat right knee x-ray yesterday showed postoperative changes, no significant change. 2. Type 2 diabetes mellitus-hold home regimen. Continue Accu-Cheks before meals at bedtime with sliding scale insulin and Levemir. Hemoglobin A1C 08/24/17 8.0%. Repeat HA1C 7.2%. 3. History of pulmonary embolism-Xarelto resumed. Recent duplex ultrasound 2017 showed no evidence of right lower extremity DVT. 4. History of tobacco use states he quit approximately 2 weeks ago. Encouraged continued cessation. 5. Obstructive sleep apnea-follows with Dr. Astorga. Continue BiPAP. 6. Hypertension-stable, continue home regimen of atenolol, lisinopril, HCTZ. 7. Super morbid obesity-encouraged lifestyle and dietary modifications. 8. GERD-continue omeprazole. 9. Chronic back pain-follows with pain management as outpatient. 10. Anxiety/Depression-continue home regimen. 11. Remote history of cardiac arrest with brief CPR following arthroscopic surgery to repair a torn right medial meniscus tear. This occurred during admission January 2016. Cardiology was consulted, Dr. Miranda saw patient during that admission. Suspect secondary to acute pulmonary embolism. Patient had prior stress test and cardiac catheterization in 2014 both which were unremarkable. Cardiac cath 01/2015 showed normal coronary arteries. EKG this admission without ST-T changes. Discharge planning-SNF when stable per ortho. DVT prophylaxis-Xarelto This patient was seen by EZEQUIEL Beckwith under the supervision of Dr. Davis. <Kayy Davis - Last Filed: 09/11/17 13:56> - Physical Exam Vital Signs Temp Pulse Resp BP Pulse Ox 97.6 F L 95 18 113/63 94 09/11/17 09:00 09/11/17 09:00 09/11/17 09:00 09/11/17 09:00 09/11/17 09:00 Oxygen Flow Rate (L/min) 3 Oxygen Delivery Method Room Air Weight: 176.9 kg Body Mass Index (BMI) 54.6 Finger Stick Blood Glucose 146 Intake and Output for Last 24 Hours 09/09/17 09/10/17 09/11/17 23:59 23:59 23:59 Intake Total 2099 / 2099 5510 / 5510 Output Total 2725 / 2725 4975 / 4975 1350 / 1350 Balance -625 / -625 535 / 535 -1350 / -1350 Laboratory Tests Past 24 Hrs 09/11/17 09/11/17 05:06 05:06 WBC 8.9 RBC 4.33 L Hgb 13.6 Hct 41.6 MCV 96.1 H MCH 31.4 MCHC 32.7 RDW 13.3 RDW Differential 46.8 H Plt Count 357 MPV 9.7 Sodium 134 L Potassium 4.1 Chloride 101 Carbon Dioxide 24.0 Anion Gap 9 BUN 15 Creatinine 0.93 Estim Creat Clear Calc 101.39 Est GFR (MDRD) Af Amer 112 Est GFR (MDRD) Non-Af 92 BUN/Creatinine Ratio 16.1 Glucose 93 Calcium 8.9 POC Glucose 09/11/17 09/11/17 09/10/17 12:06 06:16 22:42 POC Glucose 82 94 91 09/10/17 16:24 POC Glucose 100 Assessment/Plan Patient was seen and examined independently. I agree with the interval history , physical exam and assessment and plan as documented by nurse practitioner, Lydia Riggs. Patient states his pain is much controlled, less than 5/10. Able to ambulate with therapy. No active complaints. Waiting on precertification for discharge to the [facility] facility. Denies any headache or dizziness or palpitations. Happy with her current pain regimen in controlling his pain. Vitals and labs reviewed - stable. We will continue same medication, pending discharge to the [facility] facility Code Visit Inpatient E&M: 17182 Subs Hosp L2
[2017-09-11 12:15] LABS: Bedside Glucose 82 mg/dL (70-110)
[2017-09-11 14:00] VITALS: BP 120/68; PULSE 90; RESP 18; TEMP 36.8; O2SAT 95
--- NOTE | 2017-09-11 14:32 | NURSING ---
Addendum entered by Yocasta Rice 09/11/17 18:37: time was actually around 14:46 Original Note: Received call from Lydia LOPEZ verbalized concern regarding signing script for Dr. Rodriguez, reinforced that she needs to talk with Dr. Rodriguez herself or she should talk with Dr. Davis and have Dr. Davis talk with Dr. Rodriguez herself.
[2017-09-11 16:00] VITALS: BP 120/68; PULSE 90; RESP 18; TEMP 36.8; O2SAT 95
--- NOTE | 2017-09-11 16:28 | CASEMGMT ---
Social Work Note SW received precert from [facility]. ASHLEY informed Dr. Rodriguez that he needed to sign scripts and medication list for pt to discharged. Dr. Rodriguez states that this ASHLEY needs to print off the scripts and medication list. ASHLEY informed Dr. Rodriguez that this SW is unable to print off medication and scripts and that he needs to. ASHLEY and charge nurse decide to fax over medication list to Dr. Rodriguez's office to have him sign off on medication list. Dr. Rodriguez states to have Doctor Paintsil sign off on scripts. SW received call from Doctor Paintsil asking what is the latest that this SW can set up transport. SW explained to Doctor Paintsil that this SW is unsure as this worker is unable to set up transportation without first have the signed medication list and scripts. Doctor Paintsil once again asked what is the latest that transportation can be set up and again this SW explained that this worker doesn't know but can call around to see what is the latest. Doctor Paintsil states that she will sign off on the scripts. SW received scripts from Doctor Paintsil. SW is still waiting for medication list to be signed and faxed from Dr. Rodriguez's office. SW was advised to go ahead and set up transportation for the latest time possible. SW called [facility] and the latest time they have is 4:30pm. SW called [facility] and they states that the latest they can transport is 5:00. SW set up transportation through [facility] for 5:00pm. SW informed field secretary Дмитрий and Charge Nurse Yocasta. Brick Carrier Ariel called Dr. Rodriguez's office to have him fax over medication list as soon as possible. SW is currently waiting for signed medication list. Received call from [facility] stating that they are unable to transport patient due to all Wheelchair van's already leaving for the day. ASHLEY is still waiting for signed medication list from Dr. Rodriguez. At this time, 4:54pm SW still hasn't received signed medication list. Plan: Discharge to [facility] pending signed medication list from Dr. Jennifer Aguilar [employer], TIRE SHOP MANAGER.
[2017-09-11 17:20] LABS: Bedside Glucose 95 mg/dL (70-110)
--- NOTE | 2017-09-11 17:21 | PCA ---
Call placed to [facility] who states they cannot transport pt due to [employer]. Mariah gave this senior vice president and chief information officer alternate phone number to call that deals with [employer] transportations. Spoke with Genie from [facility] ([phone]), this senior vice president and chief information officer set up transport with [facility] Genie stated that someone will call nurses desk once transport has been obtained, and ETA. Call received from Sujit at [facility] stating that he will be working on obtaining transportation and will call the nurses desk with once transport decision has been determined.
--- NOTE | 2017-09-11 19:24 | PCA ---
Phone call placed to [facility] regarding pt transportation. Maria De Jesus stated that the provider does not metal pickling equipment operator at this location so she would have to attempt to find another transport team. Informed Maria De Jesus that pt decided if it was this late to cancel transportation through this service and he will wait until tomorrow for DC. Informed nurse dischargeYocasta, primary day shift RN, Leeann, and left on ASHLEY Mullins's extension. Also call placed to [facility] to inform this of this information and they stated to have call first thing in the morning ([phone]) and set up transportation through their transport team.
--- NOTE | 2017-09-11 19:29 | NURSING ---
talked with ER charge nurse attempting to find other wheelchair services to transport patient to ECF in [place], instructed spin table operator to attempt [facility], [facility] and [facility].
[2017-09-11 20:15] VITALS: BP 120/70; PULSE 78; RESP 18; TEMP 36.6; O2SAT 96
[2017-09-11 22:11] LABS: Bedside Glucose 91 mg/dL (70-110)
--- NOTE | 2017-09-12 00:27 | SLEEP ---
pt set up with home Bipap unit.
[2017-09-12] MEDS: oxyCODONE 5 MG Tablet 15 MG PO ×3 (02:35→10:53)
[2017-09-12 02:44] VITALS: BP 106/66; PULSE 82; RESP 18; TEMP 36.4; O2SAT 97
[2017-09-12] MEDS: Acetaminophen 500 MG Tablet 1000 MG PO (06:43)
[2017-09-12 06:51] LABS: Bedside Glucose 86 mg/dL (70-110)
[2017-09-12 08:36] VITALS: BP 100/58; PULSE 80; RESP 20; TEMP 36.8; O2SAT 94
[2017-09-12] MEDS: Lisinopril 10 MG Tablet PO (08:43)
[2017-09-12] MEDS: HYDROCHLOROTHIAZIDE 12.5 MG CAPSULE PO (08:43)
[2017-09-12] MEDS: Rivaroxaban 20 MG Tablet PO (08:43)
[2017-09-12] MEDS: Docusate Sodium 100 MG Capsule PO (08:43)
[2017-09-12] MEDS: Famotidine 20 MG Tablet PO (08:43)
[2017-09-12] MEDS: Sertraline 50 MG Tablet PO (08:43)
[2017-09-12] MEDS: Furosemide 20 MG Tablet PO (08:44)
[2017-09-12] MEDS: Varenicline 0.5 MG Tablet PO (08:44)
[2017-09-12] MEDS: Gabapentin 600 MG Tablet PO ×2 (08:44→10:57)
[2017-09-12] MEDS: Pantoprazole Sodium 20 MG Tablet PO (08:44)
[2017-09-12] MEDS: metFORMIN HCl 1,000 MG Tablet 1000 MG PO (08:44)
[2017-09-12] MEDS: Atenolol 50 MG Tablet PO (08:44)
[2017-09-12] MEDS: Senna/Docusate Sodium 1 Tablet 2 TABLET PO (08:44)
--- NOTE | 2017-09-12 09:13 | CASEMGMT ---
Social Work Note Pt is still at [facility] due to not getting medication lists signed until 5:00pm last night and not being able to find transportation to take pt to [facility]. ASHLEY reviewed notes from Дмитрий, laboratory secretary stating that she called [facility] and they are able to transport pt today back to their facility. ASHLEY placed call to [facility] and left a message for Wen asking if they would be able to transport pt back to their facility today. ASHLEY is waiting for call back from Wen. Senior Software Qa Engineer will continue to follow Plan: Discharge to [facility] Susanna PÉREZ, DESK EDITOR.
--- NOTE | 2017-09-12 09:20 | PN_ITS ---
<Lydia Riggs - Last Filed: 09/12/17 09:20> Subjective: Patient seen and examined. Discharge was delayed last evening due to transportation issues. Patient states pain is 4 out of 10 and he is comfortable. States he has mild increase in edema right lower extremity. Denies other complaints. - Physical Exam General: Alert, Oriented x3, Cooperative, No apparent distress HEENT: Atraumatic, PERRLA, EOMI, Normocephalic Neck: Supple, No JVD, Negative Carotid Bruits Lungs: Clear to auscultation, Diminished Cardiovascular: Regular rate, Regular Rhythm, Normal S1, Normal S2, No murmurs Abdomen: Bowel Sounds Present, Soft, Non Tender, Non-Distended, Obese Extremities: No clubbing, No cyanosis, Edema - RLE Skin: No rashes, No breakdown, - - Right knee with soft brace intact. Musculoskeletal: Tenderness - RLE Neurological: Cranial nerves II-XII grossly intact, Neuro grossly intact Psych/Mental Status: Normal Affect, Appropriate Vital Signs Temp Pulse Resp BP Pulse Ox 98.3 F 80 20 H 100/58 L 94 09/12/17 08:36 09/12/17 08:36 09/12/17 08:36 09/12/17 08:36 09/12/17 08:36 Oxygen Flow Rate (L/min) 3 Oxygen Delivery Method Room Air Weight: 176.9 kg Body Mass Index (BMI) 54.6 Finger Stick Blood Glucose 146 Intake and Output for Last 24 Hours 09/10/17 09/11/17 09/12/17 23:59 23:59 23:59 Intake Total 5510 / 5510 1040 / 1040 640 / 640 Output Total 4975 / 4975 3500 / 3500 1250 / 1250 Balance 535 / 535 -2460 / -2460 -610 / -610 POC Glucose 09/12/17 09/11/17 09/11/17 06:48 21:21 17:16 POC Glucose 86 91 95 09/11/17 12:06 POC Glucose 82 Medical Necessity - Tobacco Use Smoking Status: Former smoker Assessment/Plan 1. S/P ORIF right distal femur 09/08/[address] Rodriguez for repair of right distal femur medial posterior condyle fracture secondary to mechanical fall prior to admission. PT/OT. Continue current as needed and scheduled pain regimen. Nonweightbearing right lower extremity. Ice and elevate right lower extremity. Discharged to SNF today per orthopedic. 2. Type 2 diabetes mellitus-hold home regimen. Continue Accu-Cheks before meals at bedtime with sliding scale insulin and Levemir. Hemoglobin A1C 08/24/17 8.0%. Repeat HA1C 7.2%. 3. History of pulmonary embolism-Xarelto resumed. Recent duplex ultrasound 2017 showed no evidence of right lower extremity DVT. 4. History of tobacco use states he quit approximately 2 weeks ago. Encouraged continued cessation. 5. Obstructive sleep apnea-follows with Dr. Astorga. Continue BiPAP. 6. Hypertension-stable, continue home regimen of atenolol, lisinopril, HCTZ. 7. Super morbid obesity-encouraged lifestyle and dietary modifications. 8. GERD-continue omeprazole. 9. Chronic back pain-follows with pain management as outpatient. 10. Anxiety/Depression-continue home regimen. 11. Remote history of cardiac arrest with brief CPR following arthroscopic surgery to repair a torn right medial meniscus tear. This occurred during admission January 2016. Cardiology was consulted, Dr. Miranda saw patient during that admission. Suspect secondary to acute pulmonary embolism. Patient had prior stress test and cardiac catheterization in 2014 both which were unremarkable. Cardiac cath 01/2015 showed normal coronary arteries. EKG this admission without ST-T changes. DVT prophylaxis-Xarelto This patient was seen by EZEQUIEL Beckwith under the supervision of Dr. Davis. <Kayy Davis - Last Filed: 09/12/17 14:12> - Physical Exam Vital Signs Temp Pulse Resp BP Pulse Ox 98.3 F 80 20 H 100/58 L 94 09/12/17 08:36 09/12/17 08:36 09/12/17 08:36 09/12/17 08:36 09/12/17 08:36 Oxygen Flow Rate (L/min) 3 Oxygen Delivery Method Room Air Weight: 176.9 kg Body Mass Index (BMI) 54.6 Finger Stick Blood Glucose 146 Intake and Output for Last 24 Hours 09/10/17 09/11/17 09/12/17 23:59 23:59 23:59 Intake Total 5510 / 5510 1040 / 1040 640 / 640 Output Total 4975 / 4975 3500 / 3500 1250 / 1250 Balance 535 / 535 -2460 / -2460 -610 / -610 POC Glucose 09/12/17 09/12/17 09/11/17 10:56 06:48 21:21 POC Glucose 101 86 91 09/11/17 17:16 POC Glucose 95 Assessment/Plan Patient seen and examined. Stable. Going to be discharged today. I wrote his narcotic scripts for him yesterday when I was told he was being discharged and Dr. Rodriguez can not get to the hospital before 8pm. He was said to have apparenetly escribed his scripts instead of printing them out. I spoke to Dr. Rodriguez yesterday and I agreed to help out by writing the pain scripts because I am familiar with the patient and also because he is going into a senior living facility instead of home. Code Visit Inpatient E&M: 75960 Subs Hosp L2
--- NOTE | 2017-09-12 09:43 | CASEMGMT ---
Social Work Note ASHLEY received call from Wen at [facility] stating that they are unable to transport pt. ASHLEY placed call to [facility] and per Mariah they are unable to transport pt due to having [employer] insurance and that [facility] can transport pt with [employer] insurance. Mariah provided this worker with [facility] Number at [phone]. ASHLEY placed call to [facility] to set up transportation. ASHLEY states that pt will need a wheelchair van for transport. [facility] states that they will be at [facility] anywhere between 10:00 and 1:00 to set up transportation. Reference number for trip is [id number]. ASHLEY informed charge nurse Magali, Wen Styles at [facility] and pt of transportation time. Medication list, scripts, and transfer summary were faxed yesterday to [facility] with originals in SNF packet and copies on chart. Plan: [facility] Susanna Aguilar MSW, PRESCRIPTION CLERK.
[2017-09-12] MEDS: oxyCODONE CR 15 MG Tablet 30 MG PO (09:58)
[2017-09-12] MEDS: LORazepam 1 MG Tablet PO (09:59)
--- NOTE | 2017-09-12 10:22 | CASEMGMT ---
Social Work Note SW received call from Cinthya at [facility] transportation stating that she set up transportation through [facility] as they are the only available transportation for a wheelchair van. Cinthya states that they will be at hospital at 2:00 for pickup. ASHLEY received call from Luke at [facility] confirming that pt will need transportation. Luke states that they are located in [place] and wanted to confirm that pt needed transportation. ASHLEY confirms with Luke that pt will need transportation and that it has to be wheelchair accessible. Luke states that he will be at [facility] at 2:00pm for pickup but states that he might be able to get here sooner but will call this SW if he is able to. ASHLEY let Charge Nurse Magali, [place], RN Elvira and pt know of transportation time. Plan: Discharge to [facility] Susanna Aguilar SALES AND SERVICE CHANGE LEADER, OUTSOLE COMPRESSOR
[2017-09-12 11:01] LABS: Bedside Glucose 101 mg/dL (70-110)
--- NOTE | 2017-09-12 12:43 | NURSING ---
called report to [facility] at this time. Spoke with Rama. Call back number given. no further questions
== END 2017-09-12 12:21 | disposition skilled nursing facility (03) | DRG 211 ==
PROVIDERS: Anesthesiology; Admitting Provider Specialist; Family Provider Family Medicine; PCP Family Medicine; Visit Provider Internal Medicine
PROC: 0QSB04Z Reposition Right Lower Femur with Internal Fixation Device, Open Approach (ICD-10-PCS; CPT 27514; principal; 2017-09-08 13:10)
DX: S72.431A Displaced fracture of medial condyle of right femur, initial encounter for closed fracture (principal); W18.30XA Fall on same level, unspecified, initial encounter; E11.9 Type 2 diabetes mellitus without complications; G47.33 Obstructive sleep apnea (adult) (pediatric); E66.01 Morbid (severe) obesity due to excess calories; M19.90 Unspecified osteoarthritis, unspecified site; I10 Essential (primary) hypertension; K21.9 Gastro-esophageal reflux disease without esophagitis; F41.9 Anxiety disorder, unspecified; F32.9 Major depressive disorder, single episode, unspecified; M54.9 Dorsalgia, unspecified; G89.29 Other chronic pain; Z86.711 Personal history of pulmonary embolism; Z87.891 Personal history of nicotine dependence; Y93.89 Activity, other specified; Y92.512 Supermarket, store or market as the place of occurrence of the external cause; Y99.8 Other external cause status; Z86.74 Personal history of sudden cardiac arrest; Z68.43 Body mass index [BMI] 50.0-59.9, adult
CPT/HCPCS: 36415; 71045; 73560; 76000; 80048; 82962; 83036; 85025; 85027; 86850; 86900; 93005; 94002; 97116; 97162; 97166; 97530; 97535; 99251; 99406; J7120; A4216; G0463; J2405

== ENCOUNTER 2017-12-11 12:04 | Day surgery (SDC) | payer MEDICAID, SELFPAY ==
[2017-12-11 12:31] VITALS: BP 133/87; PULSE 75; RESP 16; TEMP 36.9; O2SAT 98; BMI 56.0
[2017-12-11 12:50] LABS: Bedside Glucose 104 mg/dL (70-110)
--- NOTE | 2017-12-11 13:11 | RAD_ITS ---
PROCEDURE: Caudal block. DATE OF EXAMINATION: December 11, 2017 INDICATION: Male, 47 years old. Chronic low back pain. FLUOROSCOPY TIME (if supplied): (0:10) minutes/seconds Intraoperative imaging provided for caudal block. A spinal needle is seen along the inferior distal portion of the sacrum. RAD/Fluor Guidance for Spine Inj IMPRESSION: Intraoperative imaging provided for caudal block. Electronically Signed: Eliazar Funes MD at 15:24 EDT Tel [phone], Service support ,
[2017-12-11] MEDS: Bupivacaine 0.25% 30 ML Vial (13:13)
[2017-12-11] MEDS: MethylPREDNISolone Acetate 80 MG/ML Vial (13:13)
[2017-12-11 13:25] VITALS: BP 131/65; BP 133/87; PULSE 80; RESP 16; TEMP 37.5; O2SAT 94
--- NOTE | 2017-12-11 13:25 | PCM.OPRPT ---
Problem List (1) Degeneration of lumbosacral intervertebral disc Status: Chronic (2) Lumbosacral radiculopathy Status: Chronic Report of Operation Date of Procedure: 12/11/17 Pre-Operative Diagnosis: Lumbosacral radiculopathy, lumbosacral degenerative disc disease, lumbosacral spinal stenosis Post-Operative Diagnosis: Lumbosacral radiculopathy, lumbosacral degenerative disc disease, lumbosacral spinal stenosis Surgery/Procedure Performed:: Diagnostic/therapeutic caudal epidural steroid injection Description of Surgical Findings:: PROCEDURE: Caudal epidural steroid injection PREOPERATIVE DIAGNOSIS: Lumbosacral radiculopathy, lumbosacral degenerative disc disease, lumbosacral spinal stenosis POSTOPERATIVE DIAGNOSIS: Lumbosacral radiculopathy, lumbosacral degenerative disc disease, lumbosacral spinal stenosis ANESTHESIA: MAC COMPLICATIONS: None BLOOD LOSS: Minimal PROCEDURE IN DETAIL: History and physical today was reviewed. Risks and benefits of the procedure were explained. The patient understood, agreed to our procedure, and informed consent was obtained. IV inserted per routine protocol. The patient was taken to the operating room, placed in a prone position with a pillow positioned underneath the abdomen. The lower back and tailbone area was prepped and draped in a sterile fashion using iodine ?3 under direct visualization fluoroscopy on the lateral view the caudal space was identified the skin and subcutaneous tissue and size approximately 3 cc of 1% lidocaine using a 25-gauge regular needle under direct visualization with fluoroscopy on the lateral view using a 22-gauge 3-1/2 inch spinal needle the needle was advanced via the skin through the sacral hiatus the peroneal passed through the sacrococcygeal ligament advanced approximately S4 area after negative aspiration of blood or CSF a total of 3 cc of contrast were injected to confirm correct placement of the needle as well as cephalad spread spread was followed to approximately L5 area after confirmation AP as well as lateral view and repeated negative aspiration a total of 15 cc of preservative-free 0.125% Marcaine with 80 mg of the portal was injected easily. The needles were then removed intact. The patient experienced no signs or symptoms intrathecal, intravascular injection. The patient experienced no paraesthesia. The procedure was completed without any apparent difficult, any complication. The patient appeared to tolerate well. ASSESSMENT AND PLAN: This is a 47-year-old male with lumbosacral radiculopathy lumbosacral degenerative disc disease lumbosacral spinal stenosis status post caudal epidural steroid injection. The patient will continue his current medications. The patient will follow in approximately 2 weeks for possible repeat of the procedure if indicated.
[2017-12-11 13:30] VITALS: BP 133/87; BP 134/83; PULSE 78; RESP 16; O2SAT 92
[2017-12-11 13:35] VITALS: BP 117/66; BP 133/87; PULSE 83; RESP 18; O2SAT 95
[2017-12-11 13:40] VITALS: BP 123/54; BP 133/87; PULSE 81; RESP 16; TEMP 36.7; O2SAT 92
[2017-12-11 13:55] VITALS: BP 133/87
== END 2017-12-11 14:02 | disposition home or self-care (01) ==
LOC: SDC 12:06 → AC 12:07
PROVIDERS: Family Provider Family Medicine; PCP Family Medicine; Visit Provider Anesthesiology Pain Medicine
PROC: 3E0S3BZ Introduction of Anesthetic Agent into Epidural Space, Percutaneous Approach (ICD-10-PCS; CPT 62282; principal; 2017-12-11 13:25)
DX: M51.17 Intervertebral disc disorders with radiculopathy, lumbosacral region (principal); M48.07 Spinal stenosis, lumbosacral region; I10 Essential (primary) hypertension; E11.9 Type 2 diabetes mellitus without complications; K21.9 Gastro-esophageal reflux disease without esophagitis; Z87.891 Personal history of nicotine dependence; Z86.711 Personal history of pulmonary embolism; Z79.01 Long term (current) use of anticoagulants; Z79.84 Long term (current) use of oral hypoglycemic drugs; Z79.899 Other long term (current) drug therapy
CPT/HCPCS: 62322; 64483; 77003; 82962; J7120; J3490

== ENCOUNTER 2018-01-29 08:49 | Day surgery (SDC) | payer MEDICAID, SELFPAY ==
[2018-01-29 09:05] VITALS: BP 152/88; PULSE 78; RESP 16; TEMP 36.7; O2SAT 98; BMI 56.9
[2018-01-29 09:25] LABS: Bedside Glucose 122 mg/dL (70-110)
[2018-01-29] MEDS: Bupivacaine 0.25% 30 ML Vial (10:14)
[2018-01-29] MEDS: MethylPREDNISolone Acetate 80 MG/ML Vial (10:14)
[2018-01-29 10:20] VITALS: BP 120/61; BP 152/88; PULSE 82; RESP 16; TEMP 36.7; O2SAT 92
[2018-01-29 10:25] VITALS: BP 124/96; BP 152/88; PULSE 83; RESP 16; O2SAT 96
[2018-01-29 10:30] VITALS: BP 152/88; BP 92/63; PULSE 78; RESP 16; O2SAT 95
[2018-01-29 10:33] VITALS: BP 119/67; BP 152/88; PULSE 77; RESP 16; TEMP 36.7; O2SAT 95
[2018-01-29 10:48] VITALS: BP 152/88
--- NOTE | 2018-01-29 12:53 | PCM.OPRPT ---
Problem List (1) Degeneration of lumbosacral intervertebral disc Status: Chronic (2) Lumbosacral spondylosis Status: Chronic Report of Operation Date of Procedure: 01/29/18 Pre-Operative Diagnosis: Lumbosacral spondylosis, lumbosacral degenerative disc disease, lumbar facet arthropathy Post-Operative Diagnosis: Lumbosacral spondylosis, lumbosacral degenerative disc disease, lumbar facet arthropathy Surgery/Procedure Performed:: Left sided lumbar facet steroid injection L3, L4, L5, S1 Description of Surgical Findings:: PROCEDURE: Left-sided lumbar facet steroid injection L3, L4, L5, S1 PREOPERATIVE DIAGNOSIS: Lumbosacral spondylosis, lumbosacral degenerative disc disease, lumbar facet arthropathy POSTOPERATIVE DIAGNOSIS: Lumbosacral spondylosis, lumbosacral degenerative disc disease, lumbar facet arthropathy ANESTHESIA: MAC COMPLICATIONS: None BLOOD LOSS: Minimal PROCEDURE IN DETAIL: History and physical today was reviewed. Risks and benefits of the procedure were explained. The patient understood, agreed to our procedure, and informed consent was obtained. IV inserted per routine protocol. The patient was taken to the operating room, placed in a prone position with a pillow positioned underneath the abdomen. The left side of his lower back was prepped and draped in a sterile fashion using iodine x3. Under fluoroscopy guidance, on AP view, L3 through S1 vertebral bodies were visualized. Skin and subcutaneous tissues were anesthetized with approximately 5 mL of 1% lidocaine using a 25-gauge regular needle. Under direct visualization with fluoroscopy at approximately 25-degree angle, starting on the left L3, ending on the left S1, passing through the L4-L5 using a 22-gauge 5-inch spinal needle, the needle was advanced via the skin. The tip of the needle was maneuvered and directed towards the superior and medial gutter of the transverse process at the vicinity of the medial branch. Once the tip of the needle was in contact with the bone, the needle pulled approximately 2 mm off the bone. After negative aspiration of blood with CSF and confirmation of AP as well as oblique view, a total of 8 mL of preservative-free 0.25% Marcaine with 80 mg of Depo-Medrol was injection in divided doses between those 4 levels. The needles were then removed intact. The patient experienced no signs or symptoms intrathecal, intravascular injection. The patient experienced no paraesthesia. The procedure was completed without any apparent difficult, any complication. The patient appeared to tolerate well. ASSESSMENT AND PLAN: This is a 47-year-old Male with Lumbosacral spondylosis, lumbosacral degenerative disc disease, lumbar facet arthropathy, status post left-sided lumbar facet steroid injection [id number] S1. The patient will continue his current medications. The patient will follow in approximately 2 weeks for possible repeat of the procedure if indicated.
== END 2018-01-29 10:48 | disposition home or self-care (01) ==
LOC: SDC 08:49 → AC 08:51
PROVIDERS: Family Provider Family Medicine; PCP Family Medicine; Visit Provider Anesthesiology Pain Medicine
PROC: 3E0T3BZ Introduction of Anesthetic Agent into Peripheral Nerves and Plexi, Percutaneous Approach (ICD-10-PCS; CPT 64493; principal; 2018-01-29 10:05)
DX: M47.817 Spondylosis without myelopathy or radiculopathy, lumbosacral region (principal); M51.36 Other intervertebral disc degeneration, lumbar region; M51.37 Other intervertebral disc degeneration, lumbosacral region; M46.96 Unspecified inflammatory spondylopathy, lumbar region; M47.26 Other spondylosis with radiculopathy, lumbar region; M48.061 Spinal stenosis, lumbar region without neurogenic claudication; I10 Essential (primary) hypertension; G47.30 Sleep apnea, unspecified; K21.9 Gastro-esophageal reflux disease without esophagitis; E11.9 Type 2 diabetes mellitus without complications; F41.9 Anxiety disorder, unspecified; F32.9 Major depressive disorder, single episode, unspecified; Z86.711 Personal history of pulmonary embolism; Z96.641 Presence of right artificial hip joint; Z79.891 Long term (current) use of opiate analgesic; Z79.84 Long term (current) use of oral hypoglycemic drugs; Z79.01 Long term (current) use of anticoagulants; Z79.899 Other long term (current) drug therapy; F17.200 Nicotine dependence, unspecified, uncomplicated
CPT/HCPCS: 64493; 64494; 64495; 64483; 72100; 82962; J7120

== ENCOUNTER → 2018-03-12 12:03 | Outpatient (CLI) | payer MEDICAID, SELFPAY ==
--- NOTE | 2018-03-12 12:20 | RAD_ITS ---
STUDY: X-RAY - ORBITS REASON FOR EXAM: Male, 47 years old. This study is being performed as a clearance examination for exclusion of orbital metal, prior to the performance of an MRI examination. TECHNIQUE: 2 view(s) of the orbits were obtained. COMPARISON: None. FINDINGS: Normal bilateral orbits without a metallic orbital foreign body. Normal visualized facial bones. Normal paranasal sinuses. The soft tissue structures are unremarkable. RAD/Orbits for Foreign Body IMPRESSION: No demonstrated metallic orbital foreign body. The patient is cleared for an MRI examination. Electronically Signed: Eliazar Funes MD at 12:33 EDT Tel [phone], Service support ,
--- NOTE | 2018-03-12 13:00 | MRI_ITS ---
STUDY: MRI LUMBAR SPINE WITHOUT CONTRAST REASON FOR EXAM: Male, 47 years old. back pain x 30 yers, no trauma. TECHNIQUE: Standardized fat and water weighted pulse sequences were obtained in the sagittal and axial planes. COMPARISON: None FINDINGS: T12-L1: Normal endplates. Normal disc height, hydration and morphology. Normal bilateral facet joints. Normal central canal and bilateral lateral recesses. Normal bilateral intervertebral neural foramina. Normal lumbar lordosis. There is no substantial scoliosis. Normal conus medullaris that terminates at the L1-2: Normal endplates. Normal disc height, hydration and morphology. Normal bilateral facet joints. Normal central canal and bilateral lateral recesses. Normal bilateral intervertebral neural foramina. L2-3: Normal endplates. Normal disc height, hydration and morphology. Normal bilateral facet joints. Normal central canal and bilateral lateral recesses. Normal bilateral intervertebral neural foramina. L3-4: There is minimal disc space narrowing and endplate spondylosis. There is no significant disc herniation, central canal or foraminal stenosis. there is mild facet arthropathy L4-5: There is mild disc space narrowing and endplates spondylosis. There is a mild disc bulge with small central protrusion with mild central canal stenosis. There is mild bilateral foraminal stenosis. L5-S1: There is severe disc space narrowing and endplates spondylosis. There is moderate disc osteophyte complex with mild central canal stenosis. There is mild right and minimal left foraminal stenosis. Normal visualized sacral ala. Normal visualized paraspinous soft tissue structures. MRI/Spine Lumbar (Routine) IMPRESSION: Degenerative changes most prominent at L5/S1. Electronically Signed: Cheri Greenfield MD at 9:14 EDT Tel , Service support ,
== END ==
PROVIDERS: Family Provider Family Medicine; PCP Family Medicine; Referring Provider Nurse Practitioner Family; Visit Provider Nurse Practitioner Family
DX: M46.96 Unspecified inflammatory spondylopathy, lumbar region (principal); M51.36 Other intervertebral disc degeneration, lumbar region; M51.37 Other intervertebral disc degeneration, lumbosacral region; M48.061 Spinal stenosis, lumbar region without neurogenic claudication; M47.26 Other spondylosis with radiculopathy, lumbar region
CPT/HCPCS: 70030; 72148

== ENCOUNTER 2018-04-16 07:58 | Day surgery (SDC) | payer MEDICAID, SELFPAY ==
[2018-04-16 08:37] VITALS: BP 130/89; PULSE 77; RESP 20; TEMP 36.9; O2SAT 97; BMI 58.7
[2018-04-16 09:05] LABS: Bedside Glucose 165 mg/dL (70-110)
--- NOTE | 2018-04-16 09:13 | RAD_ITS ---
STUDY: X-RAY - LUMBAR SPINE REASON FOR EXAM: Male, 47 years old. Imaging provided for left L3-S1 facet joint block. TECHNIQUE: 4 cone-down view(s) of the lumbar spine were obtained. COMPARISON: None FINDINGS: Intraoperative imaging provided for left L3-S1 facet joint block. RAD/L/S Spine Min 4 Views IMPRESSION: Intraoperative imaging provided for left L3-S1 facet joint block. Electronically Signed: Eliazar Funes MD at 14:16 EST Tel [phone], Service support ,
[2018-04-16] MEDS: Bupivacaine 0.5% PF 10 ML VIAL (09:22)
[2018-04-16] MEDS: MethylPREDNISolone Acetate 80 MG/ML Vial (09:22)
--- NOTE | 2018-04-16 09:27 | PCM.OPRPT ---
Problem List (1) Degeneration of lumbosacral intervertebral disc Status: Chronic (2) Lumbosacral spondylosis Status: Chronic Report of Operation Date of Procedure: 04/16/18 Pre-Operative Diagnosis: Lumbosacral spondylosis, lumbosacral degenerative disc disease, lumbar facet arthropathy Post-Operative Diagnosis: Lumbosacral spondylosis, lumbosacral degenerative disc disease, lumbar facet arthropathy Surgery/Procedure Performed:: Left-sided lumbar facet steroid injection L3, L4, L5, S1 Description of Surgical Findings:: PROCEDURE: Left-sided lumbar facet steroid injection L3, L4, L5, S1 PREOPERATIVE DIAGNOSIS: Lumbosacral spondylosis, lumbosacral degenerative disc disease, lumbar facet arthropathy POSTOPERATIVE DIAGNOSIS: Lumbosacral spondylosis, lumbosacral degenerative disc disease, lumbar facet arthropathy ANESTHESIA: MAC COMPLICATIONS: None BLOOD LOSS: Minimal PROCEDURE IN DETAIL: History and physical today was reviewed. Risks and benefits of the procedure were explained. The patient understood, agreed to our procedure, and informed consent was obtained. IV inserted per routine protocol. The patient was taken to the operating room, placed in a prone position with a pillow positioned underneath the abdomen. The left side of his lower back was prepped and draped in a sterile fashion using iodine x3. Under fluoroscopy guidance, on AP view, L3 through S1 vertebral bodies were visualized. Skin and subcutaneous tissues were anesthetized with approximately 5 mL of 1% lidocaine using a 25-gauge regular needle. Under direct visualization with fluoroscopy at approximately 25-degree angle, starting on the left L3, ending on the left S1, passing through the L4-L5 using a 22-gauge 5-inch spinal needle, the needle was advanced via the skin. The tip of the needle was maneuvered and directed towards the superior and medial gutter of the transverse process at the vicinity of the medial branch. Once the tip of the needle was in contact with the bone, the needle pulled approximately 2 mm off the bone. After negative aspiration of blood with CSF and confirmation of AP as well as oblique view, a total of 8 mL of preservative-free 0.25% Marcaine with 80 mg of Depo-Medrol was injection in divided doses between those 4 levels. The needles were then removed intact. The patient experienced no signs or symptoms intrathecal, intravascular injection. The patient experienced no paraesthesia. The procedure was completed without any apparent difficult, any complication. The patient appeared to tolerate well. ASSESSMENT AND PLAN: This is a 47-year-old Male with Lumbosacral spondylosis, lumbosacral degenerative disc disease, lumbar facet arthropathy, status post left-sided lumbar facet steroid injection [id number] S1. The patient will continue his current medications. The patient will follow in approximately 2 weeks for reevaluation
[2018-04-16 09:30] VITALS: BP 101/60; BP 130/89; PULSE 80; RESP 16; TEMP 36.6; O2SAT 94
--- NOTE | 2018-04-16 09:30 | OP.PCM_ITS ---
Problem List (1) Degeneration of lumbosacral intervertebral disc Status: Chronic (2) Lumbosacral spondylosis Status: Chronic Report of Operation Date of Procedure: 04/16/18 Pre-Operative Diagnosis: Lumbosacral spondylosis, lumbosacral degenerative disc disease, lumbar facet arthropathy Post-Operative Diagnosis: Lumbosacral spondylosis, lumbosacral degenerative disc disease, lumbar facet arthropathy Surgery/Procedure Performed:: Left-sided lumbar facet steroid injection L3, L4, L5, S1 Description of Surgical Findings:: PROCEDURE: Left-sided lumbar facet steroid injection L3, L4, L5, S1 PREOPERATIVE DIAGNOSIS: Lumbosacral spondylosis, lumbosacral degenerative disc disease, lumbar facet arthropathy POSTOPERATIVE DIAGNOSIS: Lumbosacral spondylosis, lumbosacral degenerative disc disease, lumbar facet arthropathy ANESTHESIA: MAC COMPLICATIONS: None BLOOD LOSS: Minimal PROCEDURE IN DETAIL: History and physical today was reviewed. Risks and benefits of the procedure were explained. The patient understood, agreed to our procedure, and informed consent was obtained. IV inserted per routine protocol. The patient was taken to the ope rating room, placed in a prone position with a pillow positioned underneath the abdomen. The left side of his lower back was prepped and draped in a sterile fashion using iodine x3. Under fluoroscopy guidance, on AP view, L3 through S1 vertebral bodies were visualized. Skin and subcutaneous tissues were anesthetized with approximately 5 mL of 1% lidocaine using a 25-gauge regular needle. Under direct visualization with fluoroscopy at approximately 25-degree angle, starting on the left L3, ending on the left S1, passing through the L4-L5 using a 22-gauge 5-inch spinal needle, the needle was advanced via the skin. The tip of the needle was maneuvered and directed towards the superior and medial gutter of the transverse process at the vicinity of the medial branch. Once the tip of the needle was in contact with the bone, the needle pulled approximately 2 mm off the bone. After negative aspiration of blood with CSF and confirmation of AP as well as oblique view, a total of 8 mL of preservative-free 0.25% Marcaine with 80 mg of Depo- Medrol was injection in divided doses between those 4 levels. The needles were then removed intact. The patient experienced no signs or symptoms intrathecal, intravascular injection. The patient experienced no paraesthesia. The procedure was completed without any apparent difficult, any complication. The patient appeared to tolerate well. ASSESSMENT AND PLAN: This is a 47-year-old Male with Lumbosacral spondylosis, lumbosacral degenerative disc disease, lumbar facet arthropathy, status post left-sided lumbar facet steroid injection [id number] S1. The patient will continue his current medications. The patient will follow in approximately 2 weeks for reevaluation
[2018-04-16 09:35] VITALS: BP 130/89; BP 86/52; PULSE 77; RESP 16; O2SAT 96
[2018-04-16 09:40] VITALS: BP 130/89; BP 135/78; PULSE 78; RESP 16; O2SAT 96
[2018-04-16 09:45] VITALS: BP 120/77; BP 130/89; PULSE 76; RESP 16; TEMP 36.7; O2SAT 94
[2018-04-16 10:07] VITALS: BP 130/89
== END 2018-04-16 10:08 | disposition home or self-care (01) ==
LOC: SDC 07:59 → AC 08:02
PROVIDERS: Family Provider Family Medicine; PCP Family Medicine; Referring Provider Anesthesiology Pain Medicine; Visit Provider Anesthesiology Pain Medicine
PROC: 3E0T3BZ Introduction of Anesthetic Agent into Peripheral Nerves and Plexi, Percutaneous Approach (ICD-10-PCS; CPT 64493; principal; 2018-04-16 09:30)
DX: M47.897 Other spondylosis, lumbosacral region (principal); M51.37 Other intervertebral disc degeneration, lumbosacral region; M46.86 Other specified inflammatory spondylopathies, lumbar region; I10 Essential (primary) hypertension; K21.9 Gastro-esophageal reflux disease without esophagitis; F32.9 Major depressive disorder, single episode, unspecified; F41.9 Anxiety disorder, unspecified; F17.200 Nicotine dependence, unspecified, uncomplicated; E66.9 Obesity, unspecified; Z68.43 Body mass index [BMI] 50.0-59.9, adult; Z79.4 Long term (current) use of insulin; Z86.711 Personal history of pulmonary embolism; Z79.01 Long term (current) use of anticoagulants; Z79.899 Other long term (current) drug therapy
CPT/HCPCS: 64493; 64494; 64495; 64483; 72110; 82962; J7120; J3490

== ENCOUNTER 2018-05-28 06:39 | Day surgery (SDC) | payer MEDICAID, SELFPAY ==
[2018-05-28 07:03] VITALS: BP 141/81; PULSE 77; RESP 16; TEMP 37.2; O2SAT 97; BMI 58.8
[2018-05-28 07:25] LABS: Bedside Glucose 148 mg/dL (70-110)
--- NOTE | 2018-05-28 08:00 | RAD_ITS ---
PROCEDURE: Left L3 S1 radiofrequency ablation. DATE OF EXAMINATION: May 28, 2018. INDICATION: Male, 47 years old. Low back pain. FLUOROSCOPY TIME (if supplied): (0:44) minutes/seconds. 8 fluoroscopic spot images were obtained. Intraoperative fluoroscopic services provided for left L3-S1 radiofrequency ablation. The spinal needles are seen at the appropriate sites. RAD/L/S Spine Min 4 Views IMPRESSION: Intraoperative fluoroscopic services provided for left L3 S1 radiofrequency ablation. Electronically Signed: Eliazar Funes MD at 15:58 EST Tel [phone], Service support ,
[2018-05-28] MEDS: Bupivacaine 0.25% 30 ML Vial INFILT (08:26)
[2018-05-28] MEDS: MethylPREDNISolone Acetate 40 MG/ML Vial IM (08:26)
[2018-05-28 08:40] VITALS: BP 106/49; BP 141/81; PULSE 78; RESP 18; TEMP 36.6; O2SAT 93
--- NOTE | 2018-05-28 08:44 | OP.PCM_ITS ---
Problem List (1) Spondylosis of lumbosacral region without myelopathy or radiculopathy Status: Chronic (2) Degeneration of lumbosacral intervertebral disc Status: Chronic Report of Operation Date of Procedure: 05/28/18 Pre-Operative Diagnosis: Lumbosacral spondylosis, lumbosacral degenerative disc disease, lumbar facet arthropathy Post-Operative Diagnosis: Lumbosacral spondylosis, lumbosacral degenerative disc disease, lumbar facet arthropathy Surgery/Procedure Performed:: Left-sided lumbar radiofrequency ablation of the medial branch at L3, L4, L5, S1 Description of Surgical Findings:: PROCEDURE: Left-sided radiofrequency ablation of the medial branch L3, L4, L5, S1 PREOPERATIVE DIAGNOSES: Lumbosacral spondylosis, lumbosacral degenerative disc disease, lumbar facet arthropathy POSTOPERATIVE DIAGNOSES: Lumbosacral spondylosis, lumbosacral degenerative disc disease, lumbar facet arthropathy ANESTHESIA: MAC COMPLICATIONS: None BLOOD LOSS: Minimal PROCEDURE IN DETAIL: History and physical today was reviewed. Risks and benefits of procedure explained. The patient understood, agreed to the procedure and informed consent was obtained. IV inserted per routine protocol. The patient was taken to the operating room, placed in the prone position with a pillow positioned underneath the abdomen. The left side of the lower back was prepped and draped in a sterile fashion using iodine x 3. Under fluoroscopy guidance, on an oblique view, the L3 through S1 vertebral bodies were visualized. The skin and subcutaneous tissue was anesthetized with approximately 10 mL of 1% lidocaine using a 25-gauge regular needle. Under direct visualization with fluoroscopy at approximately 25-degree angle, starting on the left L3, ending on the left S1 passing through the L4-L5 using a 20-gauge 15 cm with a 10 mm curved active tip radiofrequency ablation needle the needle passed through the skin. The tip of the needle was maneuvered and directed towards the superior and medial gutter of the transverse process at the vicinity of the medial branch. Once the tip of the needle was in contact with the bone, the needle pulled approximately 2 mm up the bone. The stylet of each needle was then removed. After negative aspiration of blood with CSF and confirmation of AP as well as oblique view, radiofrequency ablation probe was then inserted at each level. Impedance was then recorded at L3 to be 262, at L4 256, at L5 290, at S1 318 ohm. Motor-evoked potential was then initiated to 1.5 volt without any motor response at each corresponding l evel. The probe was then removed intact and a total of 6 mL preservative-free 1% lidocaine was injected in divided doses between those 4 levels after negative aspiration of blood with CSF. The radiofrequency ablation probe was then reinserted after confirmation of AP, oblique as well as lateral view. Radiofrequency ablation was then initiated to 80 degrees Celsius for 90 seconds at each level. Once concluded, the probe was then removed intact and a total of 6 mL of preservative-free 0.25% Marcaine with 40 mg Depo-Medrol was injected in divided doses between those 4 levels. The needles were then removed intact. The patient experienced no signs or symptoms of intrathecal, intravascular injection. The patient experienced no paraesthesia. The procedure was completed without any apparent difficulty, any complication. The patient appeared to tolerate well. Sensory as well as motor exam was unchanged from prior to procedure. ASSESSMENT AND PLAN: This is a 47-year-old male with lumbosacral spondylosis, lumbosacral degenerative disc disease, lumbar facet arthropathy, status post left-sided radiofrequency ablation of the medial branch L3 through S1. The patient will continue his current medications. The patient will follow up in approximately 2 weeks for reevaluation.
[2018-05-28 08:45] VITALS: BP 134/89; BP 141/81; PULSE 77; RESP 18; O2SAT 95
[2018-05-28 08:50] VITALS: BP 138/81; BP 141/81; PULSE 78; RESP 18; O2SAT 95
[2018-05-28 08:54] VITALS: BP 141/81; BP 145/81; PULSE 77; RESP 18; TEMP 36.4; O2SAT 95
[2018-05-28 09:26] VITALS: BP 141/81
--- OUTSIDE RECORDS SUMMARY | 2018-08-29 16:36 | XMS RPT_ITS ---
:1970 Author Organization [place] Support Name Relationship Address Phone CROW APONTE Unavailable [address] + [place] [address] UE Unavailable Unavailable Unavailable CROW APONTE Unavailable [address] + [place] [address] UE Unavailable Unavailable Unavailable CROW APONTE Unavailable [address] + [place] [address] UE Unavailable Unavailable Unavailable CROW APONTE Unavailable [address] + [place] [address] UE Unavailable Unavailable Unavailable CROW APONTE Unavailable [address] + [place] [address] UE Unavailable Unavailable Unavailable CROW APONTE Unavailable [address] + [place] [address] UE Unavailable Unavailable Unavailable CROW APONTE Unavailable [address] + [place] [address] UE Unavailable Unavailable Unavailable CROW APONTE Unavailable [address] + [place] [address] UE Unavailable Unavailable Unavailable CROW APONTE Unavailable [address] + [place] [address] UE Unavailable Unavailable Unavailable CROW APONTE Unavailable [address] + [place] [address] UE Unavailable Unavailable Unavailable CROW APONTE Unavailable [address] + [place] [address] UE Unavailable Unavailable Unavailable JABERG, CROW Unavailable [address] + [place] [address] UE Unavailable Unavailable Unavailable JABERG, CROW Unavailable [address] + [place] [address] UE Unavailable Unavailable Unavailable JABERG, CROW Unavailable [address] + [place] [address] UE Unavailable Unavailable Unavailable JABERG, CROW Unavailable [address] + [place] [address] UE Unavailable Unavailable Unavailable JABERG, CROW Unavailable [address] + [place] [address] UE Unavailable Unavailable Unavailable JABERG, CROW Unavailable [address] + [place] [address] UE Unavailable Unavailable Unavailable JABERG, CROW Unavailable [address] + [place] [address] UE Unavailable Unavailable Unavailable JABERG, CROW Unavailable [address] + [place] [address] UE Unavailable Unavailable Unavailable JABERG, CRWO Unavailable [address] + [place] [address] UE Unavailable Unavailable Unavailable JABERG, CROW Unavailable [address] + [place] [address] UE Unavailable Unavailable Unavailable JABERG, CROW Unavailable [address] + [place] [address] UE Unavailable Unavailable Unavailable JABERG, CROW Unavailable [address] + [place] [address] UE Unavailable Unavailable Unavailable JABERG, CROW Unavailable [address] + [place] [address] UE Unavailable Unavailable Unavailable Care Team Providers Name Role Phone Bairon Quezada Attending Unavailable No Doctor Assigned, Nodr Primary Care Unavailable Dameon Landa Attending Unavailable Dameon Landa Admitting Unavailable NYA PENA Attending Unavailable Daryl Clements Attending Unavailable Daryl Clements Referring Unavailable London Lou Primary Care Unavailable Ashelfah, Ghasem Admitting Unavailable Paintsil, Grafton Attending Unavailable Cortland, London Primary Care Unavailable Jose M Vazquez Consulting Unavailable Roger Brown Consulting Unavailable Wallacetsil, Grafton Consulting Unavailable Daryl Clements Attending Unavailable Daryl Clements Referring Unavailable [place], London Primary Care Unavailable PrebiSilva wayne [employer]CRETE BUCKET HOOKER-C Attending Unavailable Brittany, Silva [employer]CRETE [employer]CKET HOOKER-C Referring Unavailable [place], London Primary Care Unavailable Daryl Clements Attending Unavailable Daryl Clements Referring Unavailable [place], London Primary Care Unavailable Mich Miranda Attending Unavailable Waqas Rodriguez Referring Unavailable London Rivas Attending Unavailable Ashelfah, Ghasem Admitting Unavailable Dwayne, Davi Attending Unavailable [place], London Primary Care Unavailable Jose M Vazquez Consulting Unavailable Dwayne, Davi Consulting Unavailable Ashelfah, Ghasem Admitting Unavailable Ashelfah, Ghasem Attending Unavailable [place]land, London Primary Care Unavailable Ashelfah, Ghasem Consulting Unavailable Sammy Neil Admitting Unavailable Sammy Neil Attending Unavailable [place], London Primary Care Unavailable KittoSammy montoya Consulting Unavailable KittoeSammy Admitting Unavailable KittoeSammy Attending Unavailable [place]land, London Primary Care Unavailable KittoeSammy Consulting Unavailable [place]land, London Primary Care Unavailable Kittoe, Sammy Admitting Unavailable KitSammy bhardwaj Attending Unavailable Daryl Clements Attending Unavailable Daryl Clements Referring Unavailable [place], London Primary Care Unavailable Lydia Riggs NP-Brandie Attending Unavailable Mayelin, Waqas Admitting Unavailable [place], London Primary Care Unavailable Tereletsky, Wayne Consulting Unavailable Paintsil, Grafton Attending Unavailable Paintsil, Grafton Consulting Unavailable Mayelin, Waqas Admitting Unavailable Domitila, Wayne Attending Unavailable [place], London Primary Care Unavailable Tereletsky, Wayne Consulting Unavailable Mayelin, Waqas Consulting Unavailable Mayelin, Waqas Admitting Unavailable [place]land, London Primary Care Unavailable Tereletsky, Wayne Consulting Unavailable Paintsil, Grafton Attending Unavailable Ashelfah, Ghasem Admitting Unavailable Paintsil, Grafton Attending Unavailable [place]land, London Primary Care Unavailable Jose M Vazquez Consulting Unavailable Roger Brownuel Consulting Unavailable Paintsil, Grafton Consulting Unavailable Ashelfah, Ghasem Admitting Unavailable Dwayne, Davi Attending Unavailable [place], London Primary Care Unavailable George Jose M Consulting Unavailable Dwayne, Davi Consulting Unavailable Ashelfah, Ghasem Admitting Unavailable Dwayne, Davi Attending Unavailable Lou, London Primary Care Unavailable Vazquez, Jose M Consulting Unavailable Dwayne, Davi Consulting Unavailable Ashelfah, Ghasem Admitting Unavailable Dwayne, Davi Attending Unavailable Lou, London Primary Care Unavailable Vazquez, Jose M Consulting Unavailable Dwayne, Davi Consulting Unavailable Lou, London Primary Care Unavailable Ashelfah, Ghasem Admitting Unavailable Vazquez, Jose M Consulting Unavailable Paintsil, Grafton Attending Unavailable Roger Brown Consulting Unavailable Shawne, Sammy Admitting Unavailable Kittoe, Sammy Attending Unavailable Lou, London Primary Care Unavailable Kittoe, Sammy Consulting Unavailable Waqas Rodriguez Admitting Unavailable Lou, London Primary Care Unavailable Tereletsky, Wayne Consulting Unavailable Paintsil, Grafton Attending Unavailable Paintsil, Grafton Consulting Unavailable PROBLEMS PROBLEMS DATE TYPE CONDITION / CODE ATTENDING STATUS SOURCE 10/16/2017 Unknown I10 - Essential Ruben, Mich Active [facility] (primary) Community hypertension / Hospital I10(ICD-10) Repository 11/24/2017 Unknown G89.18 - Other acute Paintsil, Grafton Active [facility] postprocedural pain Community / G89.18(ICD-10) Hospital Repository 11/24/2017 Unknown S72.90XA - Paintsil, Grafton Active [place] Unspecified fracture Community of unspecified Hospital femur, initial Repository encounter for closed fracture / S72.90XA(ICD-10) 11/24/2017 Unknown S82.002A - Paintsil, Grafton Active [facility] Unspecified fracture Community of left patella, Hospital initial encounter Repository for closed fracture / S82.002A(ICD-10) 09/05/2017 Active Encounter for NYA PENA Active [place] screening for other [facility] Main disorder / [place] Z13.89(ICD-10) Repository 10/04/2017 Unknown M79.661 - Pain in [place] christian Active [facility] right lower leg / Community M79.661(ICD-10) Hospital Repository 08/29/2017 Unknown S72.409A - Paintsil, G[place]on Active [facility] Unspecified fracture Community of lower end of Hospital unspecified femur, Repository initial encounter for closed fracture / S72.409A(ICD-10) PROCEDURES PROCEDURES No Procedure Records FoundRESULTS RESULTS OPERATIVE REPORT Observed: 05/28/2018 Status: F Source: [place] 8:44 AM [facility] REPOSITORY [facility] Medical Records Department [address] [place] [address] Operative Report 05/28/18 0841 MR#: [id number] Acct: [id number] Name: ADRIAN APONTE Jr. Rep #: [id number] : 1970 47 From: Daryl Clements MD PCP: London Lou MD Status: REG SDC Y Location: [place] [address] Problem List (1) Spondylosis of lumbosacral region without myelopathy or radiculopathy Status: Chronic (2) Degeneration of lumbosacral intervertebral disc Status: Chronic Report of Operation Date of Procedure: 05/28/18 Pre-Operative Diagnosis: Lumbosacral spondylosis, lumbosacral degenerative disc disease, lumbar facet arthropathy Post-Operative Diagnosis: Lumbosacral spondylosis, lumbosacral degenerative disc disease, lumbar facet arthropathy Surgery/Procedure Performed:: Left-sided lumbar radiofrequency ablation of the medial branch at L3, L4, L5, S1 Description of Surgical Findings:: PROCEDURE: Left-sided radiofrequency ablation of the medial branch L3, L4, L5, S1 PREOPERATIVE DIAGNOSES: Lumbosacral spondylosis, lumbosacral degenerative disc disease, lumbar facet arthropathy POSTOPERATIVE DIAGNOSES: Lumbosacral spondylosis, lumbosacral degenerative disc disease, lumbar facet arthropathy ANESTHESIA: MAC COMPLICATIONS: None BLOOD LOSS: Minimal PROCEDURE IN DETAIL: History and physical today was reviewed. Risks and benefits of procedure explained. The patient understood, agreed to the procedure and informed consent was obtained. IV inserted per routine protocol. The patient was taken to the operating room, placed in the prone position with a pillow positioned underneath the abdomen. The left side of the lower back was prepped and draped in a sterile fashion using iodine x 3. Under fluoroscopy guidance, on an oblique view, the L3 through S1 vertebral bodies were visualized. The skin and subcutaneous tissue was anesthetized with approximately 10 mL of 1% lidocaine using a 25-gauge regular needle. Under direct visualization with fluoroscopy at approximately 25-degree angle, starting on the left L3, ending on the left S1 passing through the L4-L5 using a 20-gauge 15 cm with a 10 mm curved active tip radiofrequency ablation needle the needle passed through the skin. The tip of the needle was maneuvered and directed towards the superior and medial gutter of the transverse process at the vicinity of the medial branch. Once the tip of the needle was in contact with the bone, the needle pulled approximately 2 mm up the bone. The stylet of each needle was then removed. After negative aspiration of blood with CSF and confirmation of AP as well as oblique view, radiofrequency ablation probe was then inserted at each level. Impedance was then recorded at L3 to be 262, at L4 256, at L5 290, at S1 318 ohm. Motor-evoked potential was then initiated to 1.5 volt without any motor response at each corresponding level. The probe was then removed intact and a total of 6 mL preservative- free 1% lidocaine was injected in divided doses between those 4 levels after negative aspiration of blood with CSF. The radiofrequency ablation probe was then reinserted after confirmation of AP, oblique as well as lateral view. Radiofrequency ablation was then initiated to 80 degrees Celsius for 90 seconds at each level. Once concluded, the probe was then removed intact and a total of 6 mL of preservative-free 0.25% Marcaine with 40 mg Depo-Medrol was injected in divided doses between those 4 levels. The needles were then removed intact. The patient experienced no signs or symptoms of intrathecal, intravascular injection. The patient experienced no paraesthesia. The procedure was completed without any apparent difficulty, any complication. The patient appeared to tolerate well. Sensory as well as motor exam was unchanged from prior to procedure. ASSESSMENT AND PLAN: This is a 47-year-old male with lumbosacral spondylosis, lumbosacral degenerative disc disease, lumbar facet arthropathy, status post left-sided radiofrequency ablation of the medial branch L3 through S1. The patient will continue his current medications. The patient will follow up in approximately 2 weeks for reevaluation. 05/28/18 0844 <Electronically signed by Daryl Clements MD> Date Daryl Clements MD CC: Daryl Clements; London Lou MD Signed BEDSIDE GLUCOSE Collected: 05/28/2018 Status: F Source: [place] 7:10 AM [facility] REPOSITORY TYPE CODE TESTS RESULT OUT OF REFERENCE UNITS RANGE LAB L501.080 70-110 mg/dL High BEDSIDE GLU 148 Result Comment: MANAGEMENT OF PATIENT CARE PER NURSING PROTOCOL Performed By: #### L501.080 #### [facility] Point of Care [address] [place] [address] L/S SPINE MIN 4 Observed: 05/28/2018 Status: F Source: [place] VIEWS 3:36 AM [facility] REPOSITORY [facility] Imaging Services [address] [place] [address] L/S Spine Min 4 Views MR#: [id number] Acct: [id number] Name: BRITTNEYADRIAN BLANTON Jr. Rep #: [id number] : 1970 M 47 From: Eliazar Funes MD PCP: London Lou MD Status: [facility] Study: L/S Spine Min 4 Views Date of Exam: 05/28/18 Exam# [id number] Ordering Dr: Daryl Clements MD PROCEDURE: Left L3 S1 radiofrequency ablation. DATE OF EXAMINATION: May 28, 2018. INDICATION: Male, 47 years old. Low back pain. FLUOROSCOPY TIME (if supplied): (0:44) minutes/seconds. 8 fluoroscopic spot images were obtained. Intraoperative fluoroscopic services provided for left L3- S1 radiofrequency ablation. The spinal needles are seen at the appropriate sites. RAD/L/S Spine Min 4 Views IMPRESSION: Intraoperative fluoroscopic services provided for left L3 S1 radiofrequency ablation. Electronically Signed: Eliazar Funes MD at 15:58 EST Tel [phone], Service support , CC: Daryl Clements; London Lou MD Technical Support Director: Signed OPERATIVE REPORT Observed: 04/16/2018 Status: F Source: [place] 9:30 AM [facility] Medical Records Department [address] [place] [address] Operative Report 04/16/18 0927 MR#: [id number] Acct: [id number] Name: ADRIAN APONTE Jr. Rep #: [id number] : 1970 47 From: Daryl Clements MD PCP: London Lou MD Status: REG SDC Y Location: [place] [address] Problem List (1) Degeneration of lumbosacral intervertebral disc Status: Chronic (2) Lumbosacral spondylosis Status: Chronic Report of Operation Date of Procedure: 04/16/18 Pre-Operative Diagnosis: Lumbosacral spondylosis, lumbosacral degenerative disc disease, lumbar facet arthropathy Post-Operative Diagnosis: Lumbosacral spondylosis, lumbosacral degenerative disc disease, lumbar facet arthropathy Surgery/Procedure Performed:: Left-sided lumbar facet steroid injection L3, L4, L5, S1 Description of Surgical Findings:: PROCEDURE: Left-sided lumbar facet steroid injection L3, L4, L5, S1 PREOPERATIVE DIAGNOSIS: Lumbosacral spondylosis, lumbosacral degenerative disc disease, lumbar facet arthropathy POSTOPERATIVE DIAGNOSIS: Lumbosacral spondylosis, lumbosacral degenerative disc disease, lumbar facet arthropathy ANESTHESIA: MAC COMPLICATIONS: None BLOOD LOSS: Minimal PROCEDURE IN DETAIL: History and physical today was reviewed. Risks and benefits of the procedure were explained. The patient understood, agreed to our procedure, and informed consent was obtained. IV inserted per routine protocol. The patient was taken to the operating room, placed in a prone position with a pillow positioned underneath the abdomen. The left side of his lower back was prepped and draped in a sterile fashion using iodine x3. Under fluoroscopy guidance, on AP view, L3 through S1 vertebral bodies were visualized. Skin and subcutaneous tissues were anesthetized with approximately 5 mL of 1% lidocaine using a 25-gauge regular needle. Under direct visualization with fluoroscopy at approximately 25-degree angle, starting on the left L3, ending on the left S1, passing through the L4-L5 using a 22-gauge 5-inch spinal needle, the needle was advanced via the skin. The tip of the needle was maneuvered and directed towards the superior and medial gutter of the transverse process at the vicinity of the medial branch. Once the tip of the needle was in contact with the bone, the needle pulled approximately 2 mm off the bone. After negative aspiration of blood with CSF and confirmation of AP as well as oblique view, a total of 8 mL of preservative-free 0.25% Marcaine with 80 mg of Depo-Medrol was injection in divided doses between those 4 levels. The needles were then removed intact. The patient experienced no signs or symptoms intrathecal, intravascular injection. The patient experienced no paraesthesia. The procedure was completed without any apparent difficult, any complication. The patient appeared to tolerate well. ASSESSMENT AND PLAN: This is a 47-year-old Male with Lumbosacral spondylosis, lumbosacral degenerative disc disease, lumbar facet arthropathy, status post left-sided lumbar facet steroid injection [id number] S1. The patient will continue his current medications. The patient will follow in approximately 2 weeks for reevaluation 04/16/18 0930 <Electronically signed by Daryl Clements MD> Date Daryl Clements MD CC: Daryl Clements; [place] Lou MD Signed BEDSIDE GLUCOSE Collected: 04/16/2018 Status: F Source: [place] 8:59 AM [facility] REPOSITORY TYPE CODE TESTS RESULT OUT OF REFERENCE UNITS RANGE LAB L501.080 70-110 mg/dL High BEDSIDE GLU 165 Result Comment: MANAGEMENT OF PATIENT CARE PER NURSING PROTOCOL Performed By: #### L501.080 #### [facility] Point of Care [address] [place] [address] L/S SPINE MIN 4 Observed: 04/16/2018 Status: F Source: [place] VIEWS 2:15 AM [facility] REPOSITORY [facility] Imaging Services [address] [facility] [place] [address] L/S Spine Min 4 Views MR#: [id number] Acct: [id number] Name: ADRIAN APONTE Rep #: [id number] : 1970 M 47 From: Eliazar Funes MD PCP: [place] Lou MD Status: [facility] Study: L/S Spine Min 4 Views Date of Exam: 04/16/18 Exam# [id number] Ordering Dr: Daryl Clements MD STUDY: X-RAY - LUMBAR SPINE REASON FOR EXAM: Male, 47 years old. Imaging provided for left L3-S1 facet joint block. TECHNIQUE: 4 cone-down view(s) of the lumbar spine were obtained. COMPARISON: None FINDINGS: Intraoperative imaging provided for left L3-S1 facet joint block. RAD/L/S Spine Min 4 Views IMPRESSION: Intraoperative imaging provided for left L3-S1 facet joint block. Electronically Signed: Eliazar Funes MD at 14:16 EST Tel [phone], Service support , CC: Daryl Clements; [place] Lou MD Technical Support Director: Signed ORBITS FOR FOREIGN Observed: 03/12/2018 Status: F Source: [place] BODY 12:08 PM [facility] REPOSITORY [facility] Imaging Services [address] [place], [place] [address] [address] Orbits for Foreign Body MR#: [id number] Acct: [id number] Name: ADRIAN APONTE . Rep #: [id number] : 1970 M 47 From: Eliazar Funes MD PCP: London Lou MD Status: REG CLI Study: Orbits for Foreign Body Date of Exam: 03/12/18 Exam# [id number] Ordering Dr: Silva Soto STUDY: X-RAY - ORBITS REASON FOR EXAM: Male, 47 years old. This study is being performed as a clearance examination for exclusion of orbital metal, prior to the performance of an MRI examination. TECHNIQUE: 2 view(s) of the orbits were obtained. COMPARISON: None. FINDINGS: Normal bilateral orbits without a metallic orbital foreign body. Normal visualized facial bones. Normal paranasal sinuses. The soft tissue structures are unremarkable. RAD/Orbits for Foreign Body IMPRESSION: No demonstrated metallic orbital foreign body. The patient is cleared for an MRI examination. Electronically Signed: Eliazar Funes MD at 12:33 EDT Tel [phone], Service support , CC: Silva Soto; London Lou MD Technical Support Director: Signed SPINE LUMBAR Observed: 03/12/2018 Status: F Source: [place] (ROUTINE) 12:08 PM [facility] REPOSITORY [facility] Imaging Services [address] [place] [address] Spine Lumbar (Routine) MR#: [id number] Acct: [id number] Name: ADRIAN APONTE Jr. Rep #: [id number] : 1970 M 47 From: Cheri Greenfield PCP: London Lou MD Status: REG CLI Study: Spine Lumbar (Routine) Date of Exam: 03/12/18 Exam# [id number] Ordering Dr: Silva Soto STUDY: MRI LUMBAR SPINE WITHOUT CONTRAST REASON FOR EXAM: Male, 47 years old. back pain x 30 yers, no trauma. TECHNIQUE: Standardized fat and water weighted pulse sequences were obtained in the sagittal and axial planes. COMPARISON: None FINDINGS: T12-L1: Normal endplates. Normal disc height, hydration and morphology. Normal bilateral facet joints. Normal central canal and bilateral lateral recesses. Normal bilateral intervertebral neural foramina. Normal lumbar lordosis. There is no substantial scoliosis. Normal conus medullaris that terminates at the L1-2: Normal endplates. Normal disc height, hydration and morphology. Normal bilateral facet joints. Normal central canal and bilateral lateral recesses. Normal bilateral intervertebral neural foramina. L2-3: Normal endplates. Normal disc height, hydration and morphology. Normal bilateral facet joints. Normal central canal and bilateral lateral recesses. Normal bilateral intervertebral neural foramina. L3-4: There is minimal disc space narrowing and endplate spondylosis. There is no significant disc herniation, central canal or foraminal stenosis. there is mild facet arthropathy L4-5: There is mild disc space narrowing and endplates spondylosis. There is a mild disc bulge with small central protrusion with mild central canal stenosis. There is mild bilateral foraminal stenosis. L5-S1: There is severe disc space narrowing and endplates spondylosis. There is moderate disc osteophyte complex with mild central canal stenosis. There is mild right and minimal left foraminal stenosis. Normal visualized sacral ala. Normal visualized paraspinous soft tissue structures. MRI/Spine Lumbar (Routine) IMPRESSION: Degenerative changes most prominent at L5/S1. Electronically Signed: Cheri Greenfield MD at 9:14 EDT Tel , Service support , CC: Silva Soto; [place] Lou MD Technical Support Director: Signed OPERATIVE REPORT Observed: 01/29/2018 Status: F Source: [place] 12:55 PM [facility] REPOSITORY [facility] Medical Records Department [address] [place] [address] Operative Report 01/29/18 1253 MR#: [id number] Acct: [id number] Name: FAYADRIAN [place] Bynum Rep #: [id number] : 1970 47 From: Daryl Clements MD PCP: [place] Lou MD Status: [facility] Y Location: [facility] Problem List (1) Degeneration of lumbosacral intervertebral disc Status: Chronic (2) Lumbosacral spondylosis Status: Chronic Report of Operation Date of Procedure: 01/29/18 Pre-Operative Diagnosis: Lumbosacral spondylosis, lumbosacral degenerative disc disease, lumbar facet arthropathy Post-Operative Diagnosis: Lumbosacral spondylosis, lumbosacral degenerative disc disease, lumbar facet arthropathy Surgery/Procedure Performed:: Left sided lumbar facet steroid injection L3, L4, L5, S1 Description of Surgical Findings:: PROCEDURE: Left-sided lumbar facet steroid injection L3, L4, L5, S1 PREOPERATIVE DIAGNOSIS: Lumbosacral spondylosis, lumbosacral degenerative disc disease, lumbar facet arthropathy POSTOPERATIVE DIAGNOSIS: Lumbosacral spondylosis, lumbosacral degenerative disc disease, lumbar facet arthropathy ANESTHESIA: MAC COMPLICATIONS: None BLOOD LOSS: Minimal PROCEDURE IN DETAIL: History and physical today was reviewed. Risks and benefits of the procedure were explained. The patient understood, agreed to our procedure, and informed consent was obtained. IV inserted per routine protocol. The patient was taken to the operating room, placed in a prone position with a pillow positioned underneath the abdomen. The left side of his lower back was prepped and draped in a sterile fashion using iodine x3. Under fluoroscopy guidance, on AP view, L3 through S1 vertebral bodies were visualized. Skin and subcutaneous tissues were anesthetized with approximately 5 mL of 1% lidocaine using a 25-gauge regular needle. Under direct visualization with fluoroscopy at approximately 25-degree angle, starting on the left L3, ending on the left S1, passing through the L4-L5 using a 22-gauge 5-inch spinal needle, the needle was advanced via the skin. The tip of the needle was maneuvered and directed towards the superior and medial gutter of the transverse process at the vicinity of the medial branch. Once the tip of the needle was in contact with the bone, the needle pulled approximately 2 mm off the bone. After negative aspiration of blood with CSF and confirmation of AP as well as oblique view, a total of 8 mL of preservative-free 0.25% Marcaine with 80 mg of Depo-Medrol was injection in divided doses between those 4 levels. The needles were then removed intact. The patient experienced no signs or symptoms intrathecal, intravascular injection. The patient experienced no paraesthesia. The procedure was completed without any apparent difficult, any complication. The patient appeared to tolerate well. ASSESSMENT AND PLAN: This is a 47-year-old Male with Lumbosacral spondylosis, lumbosacral degenerative disc disease, lumbar facet arthropathy, status post left-sided lumbar facet steroid injection [id number] S1. The patient will continue his current medications. The patient will follow in approximately 2 weeks for possible repeat of the procedure if indicated. 01/29/18 0386 <Electronically signed by Daryl Clements MD> Date Daryl Clements MD CC: Daryl Clements; London Lou MD Signed BEDSIDE GLUCOSE Collected: 01/29/2018 Status: F Source: [place] 9:14 AM [facility] REPOSITORY TYPE CODE TESTS RESULT OUT OF REFERENCE UNITS RANGE LAB L501.080 70-110 mg/dL High BEDSIDE GLU 122 Result Comment: MANAGEMENT OF PATIENT CARE PER NURSING PROTOCOL Performed By: #### L501.080 #### [facility] Point of Care [address] [place] [address] LUMBAR SPINE 2 OR 3 Observed: 01/28/2018 Status: F Source: [place] VIEWS 11:51 PM [facility] REPOSITORY [facility] Imaging Services [address] [place] [address] Lumbar Spine 2 or 3 Views MR#: [id number] Acct: [id number] Name: ADRIAN APONTE JrValentin Rep #: [id number] : 1970 M 47 From: Eliazar Funes MD PCP: London Lou MD Status: [facility] Study: Lumbar Spine 2 or 3 Views Date of Exam: 01/29/18 Exam# [id number] Ordering Dr: Daryl Clements MD PROCEDURE: Left L3-S1 facet joint block. DATE OF EXAMINATION: January 29, 2018. INDICATION: Male, 47 years old. Low back pain. FLUOROSCOPY TIME (if supplied): (0:22) minutes/seconds Intraoperative fluoroscopic services provided for left L3- S1 facet joint block. RAD/Lumbar Spine 2 or 3 Views IMPRESSION: Fluoroscopic services provided for left L3-S1 facet joint block. Electronically Signed: Eliazar Funes MD at 9:11 EDT Tel [phone], Service support , CC: Daryl Clements; London Lou MD Technical Support Director: Signed CT KNEE W/O CONTRAST Observed: 12/21/2017 Status: F Source: [place] RIGHT 1:03 PM [facility] REPOSITORY Exam Date/Time: 12/21/2017 13:40 EDT Reason for Exam: FX RIGHT FEMUR Report STUDY: CT Knee w/o Contrast Right; 12/21/2017 1:40 pm INDICATION: FX RIGHT FEMUR. COMPARISON: There are no comparison studies.. ACCESSION NUMBER(S): [id number] ORDERING CLINICIAN: Dameon Landa TECHNIQUE: Contiguous axial CT images were obtained at 2 mm slice thickness through the right knee without intravenous contrast administration. Coronal and sagittal reformatted images were performed. FINDINGS: OSSEOUS STRUCTURES: There is an oblique fracture through the medial femoral condyle extending to the intercondylar notch region. Para fracture sclerosis and periosteal reaction are present consistent with a component of interval healing. Patient is status post ORIF with placement of 2 fixation screws across the fracture line. There is no caroline implant fracture or abnormal lucency surrounding the hardware. Tricompartmental osteoarthritic degenerative changes of the right knee are present including joint space narrowing, subchondral sclerosis and marginal osteophyte formation. SOFT TISSUES: Prepatellar subcutaneous soft tissues swelling/edema is present. There is a small joint effusion present as well. Evaluation is limited by the lack of intravenous contrast. Within this limitation, no gross mass, fluid collection or lymphadenopathy is identified. IMPRESSION: 1. There is an oblique fracture through the medial femoral condyle extending to the intercondylar notch region. Para fracture sclerosis and periosteal reaction are present consistent with a component of interval healing. Patient is status post ORIF with placement of 2 fixation screws across the fracture line. There is no caroline implant fracture or abnormal lucency surrounding the hardware. There is incomplete ossification/fusion at the site of fracture. Again no prior studies are available for direct comparison to evaluate interval healing. Exam Date/Time: 12/21/2017 13:40 EDT Report 2. Prepatellar subcutaneous soft tissues swelling/edema is present. There is a small joint effusion present as well. FINAL REPORT Dictated: 12/22/2017 3:09 pm Asif Son MD Signed (Electronic Signature): 12/22/2017 3:09 pm Signed by: Asif Son MD Technologist: KAREEM OPERATIVE REPORT Observed: 12/11/2017 Status: F Source: [place] 1:27 PM [facility] REPOSITORY [facility] Medical Records Department [address] [place] [address] Operative Report 12/11/17 1325 MR#: [id number] Acct: [id number] Name: ADRIAN APONTE Jr. Rep #: [id number] : 1970 47 From: Daryl Clements MD PCP: London Lou MD Status: REG MIC Y Location: [place] [address] Problem List (1) Degeneration of lumbosacral intervertebral disc Status: Chronic (2) Lumbosacral radiculopathy Status: Chronic Report of Operation Date of Procedure: 12/11/17 Pre-Operative Diagnosis: Lumbosacral radiculopathy, lumbosacral degenerative disc disease, lumbosacral spinal stenosis Post-Operative Diagnosis: Lumbosacral radiculopathy, lumbosacral degenerative disc disease, lumbosacral spinal stenosis Surgery/Procedure Performed:: Diagnostic/therapeutic caudal epidural steroid injection Description of Surgical Findings:: PROCEDURE: Caudal epidural steroid injection PREOPERATIVE DIAGNOSIS: Lumbosacral radiculopathy, lumbosacral degenerative disc disease, lumbosacral spinal stenosis POSTOPERATIVE DIAGNOSIS: Lumbosacral radiculopathy, lumbosacral degenerative disc disease, lumbosacral spinal stenosis ANESTHESIA: MAC COMPLICATIONS: None BLOOD LOSS: Minimal PROCEDURE IN DETAIL: History and physical today was reviewed. Risks and benefits of the procedure were explained. The patient understood, agreed to our procedure, and informed consent was obtained. IV inserted per routine protocol. The patient was taken to the operating room, placed in a prone position with a pillow positioned underneath the abdomen. The lower back and tailbone area was prepped and draped in a sterile fashion using iodine 3 under direct visualization fluoroscopy on the lateral view the caudal space was identified the skin and subcutaneous tissue and size approximately 3 cc of 1% lidocaine using a 25-gauge regular needle under direct visualization with fluoroscopy on the lateral view using a 22-gauge 3-1/2 inch spinal needle the needle was advanced via the skin through the sacral hiatus the peroneal passed through the sacrococcygeal ligament advanced approximately S4 area after negative aspiration of blood or CSF a total of 3 cc of contrast were injected to confirm correct placement of the needle as well as cephalad spread spread was followed to approximately L5 area after confirmation AP as well as lateral view and repeated negative aspiration a total of 15 cc of preservative-free 0.125% Marcaine with 80 mg of the portal was injected easily. The needles were then removed intact. The patient experienced no signs or symptoms intrathecal, intravascular injection. The patient experienced no paraesthesia. The procedure was completed without any apparent difficult, any complication. The patient appeared to tolerate well. ASSESSMENT AND PLAN: This is a 47-year-old male with lumbosacral radiculopathy lumbosacral degenerative disc disease lumbosacral spinal stenosis status post caudal epidural steroid injection. The patient will continue his current medications. The patient will follow in approximately 2 weeks for possible repeat of the procedure if indicated. 12/11/17 1327 <Electronically signed by Daryl Clements MD> Date Daryl Clements MD CC: Daryl Clements; London Lou MD Signed BEDSIDE GLUCOSE Collected: 12/11/2017 Status: F Source: [place] 12:27 PM [facility] REPOSITORY TYPE CODE TESTS RESULT OUT OF RANGE REFERENCE UNITS LAB L501.080 70-110 mg/dL Normal BEDSIDE GLU 104 Result Comment: MANAGEMENT OF PATIENT CARE PER NURSING PROTOCOL Performed By: #### L501.080 #### [facility] Point of Care [address] [place] [address] FLUOR GUIDANCE FOR Observed: 12/11/2017 Status: F Source: [place] SPINE INJ 5:00 AM [facility] REPOSITORY [facility] Imaging Services [address] [place] [address] Fluor Guidance for Spine Inj MR#: [id number] Acct: [id number] Name: ADRIAN APONTE Jr. Rep #: [id number] : 1970 M 47 From: Eliazar Funes MD PCP: London Lou MD Status: [facility] Study: Fluor Guidance for Spine Inj Date of Exam: 12/11/17 Exam# [id number] Ordering Dr: Daryl Clements MD PROCEDURE: Caudal block. DATE OF EXAMINATION: December 11, 2017 INDICATION: Male, 47 years old. Chronic low back pain. FLUOROSCOPY TIME (if supplied): (0:10) minutes/seconds Intraoperative imaging provided for caudal block. A spinal needle is seen along the inferior distal portion of the sacrum. RAD/Fluor Guidance for Spine Inj IMPRESSION: Intraoperative imaging provided for caudal block. Electronically Signed: Eliazar Funes MD at 15:24 EDT Tel [phone], Service support , CC: Daryl Clements; London Lou MD Technical Support Director: Signed CNOV Observed: 10/04/2017 Status: COMPLETED Source: [place] 10:15 AM [facility] REPOSITORY Office Visit (UROSMN) ADRIAN APONTE JR. ([id number]) 1970 M Date Time Provider Department 10/04/17 10:15 AM NYA PENA UROSMN During your visit today, we recorded the following information about you: Referring Provider: NYA PENA [[id number]] Allergies As of Date: 10/04/2017 Noted Allergy Reaction QUININE 01/01/2015 4 - Hives Date Reviewed: 09/05/2017 Reviewed by: Bhavesh Zavala Ma - Fully Assessed Primary Visit Diagnosis:APPOINTMENT CANCELLED Order(s):lidocaine urojet (XYLOCAINE, GLYDO) 2 % jelpApply prior to procedure as directed.Disp: 10 mLRfl: 0 Prescriptions as of 10/04/2017 Sig: LIDOCAINE 2 % MUCOUS MEMBRANE* Apply prior to procedure as d* FUROSEMIDE 20 MG TABLET Take 20 mg by mouth once antonette* LORAZEPAM 1 MG TABLET Take 1 mg by mouth daily at b* VARENICLINE 0.5 MG TABLET Take 0.5 mg by mouth twice da* DOCUSATE SODIUM 100 MG CAPSULE Take 100 mg by mouth twice da* CYCLOBENZAPRINE 10 MG TABLET Take 10 mg by mouth every 8 h* METFORMIN 500 MG TABLET Take 500 mg by mouth twice da* INSULIN DETEMIR (U-100) 100 U* Inject subcutaneously daily a* MAGNESIUM HYDROXIDE 400 MG/5 * Take by mouth once daily as n* OXYCODONE 10 MG TABLET Take 5 mg by mouth every 4 ho* ALBUTEROL SULFATE HFA 90 MCG/* Inhale 2 Puffs as instructed * ACETAMINOPHEN 325 MG TABLET Take 650 mg by mouth every 6 * POTASSIUM ORAL Take by mouth. GLUCOSAMINE ORAL Take by mouth. GABAPENTIN 300 MG CAPSULE 600 mg three times daily. SERTRALINE 25 MG TABLET XARELTO 15 MG TABLET 20 mg. ASPIRIN ORAL Take by mouth. ATENOLOL 100 MG TABLET 50 mg twice daily. HYDROCHLOROTHIAZIDE 25 MG TAB* OMEPRAZOLE 20 MG CAPSULE,BERNABE* LISINOPRIL 10 MG-HYDROCHLOROT* TRAMADOL 50 MG TABLET as needed. 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 Encounter Status:Closed by LAURI MIX on 10/12/17 12 LEAD ELECTROCARDIOGRAM Observed: 09/19/2017 Status: F Source: [place] 9:31 AM [facility] REPOSITORY [facility] Cardiovascular Services [address] [place] [address] 12 Lead EKG 09/07/17 1715 MR#: [id number] Acct: [id number] Name: ADRIAN APONTE Jr. Rep #: [id number] : 1970 46 From: Mich Miranda MD Attending Dr: Kayy Davis MD Status: DIS IN Ordering Dr: Lydia Riggs Date: 09/07/17 Location: [facility] Sex: M C Admitted: 09/07/17 Test Reason : Blood Pressure : / mmHG Vent. Rate : 080 BPM Atrial Rate : 080 BPM P-R Int : 192 ms QRS Dur : 080 ms QT Int : 406 ms P-R-T Axes : 032 013 012 degrees QTc Int : 468 ms Normal sinus rhythm Normal ECG No previous ECGs available Confirmed by MICH MIRANDA MD ([id number]), editor sound MANAV VAZQUEZ ([id number]) on 09/19/2017 9:31:27 AM Referred By: MAYELIN Confirmed By:MICH MIRANDA MD 09/19/17 0931 Date Mich Miranda MD CC: CONCRETE BUCKET HOOKER-C Lydia Riggs; Kayy Davis MD; London Lou MD Signed BEDSIDE GLUCOSE Collected: 09/12/2017 Status: F Source: [place] 10:56 AM [facility] REPOSITORY TYPE CODE TESTS RESULT OUT OF RANGE REFERENCE UNITS LAB L501.080 70-110 mg/dL Normal BEDSIDE GLU 101 Result Comment: MANAGEMENT OF PATIENT CARE PER NURSING PROTOCOL Performed By: #### L501.080 #### [facility] Point of Care [address] [place] [address] BEDSIDE GLUCOSE Collected: 09/12/2017 Status: F Source: [place] 6:48 AM [facility] REPOSITORY TYPE CODE TESTS RESULT OUT OF RANGE REFERENCE UNITS LAB L501.080 70-110 mg/dL Normal BEDSIDE GLU 86 Result Comment: MANAGEMENT OF PATIENT CARE PER NURSING PROTOCOL Performed By: #### L501.080 #### [facility] Point of Care [address] [place] [address] BEDSIDE GLUCOSE Collected: 09/11/2017 Status: F Source: [place] 9:21 PM [facility] REPOSITORY TYPE CODE TESTS RESULT OUT OF RANGE REFERENCE UNITS LAB L501.080 70-110 mg/dL Normal BEDSIDE GLU 91 Result Comment: MANAGEMENT OF PATIENT CARE PER NURSING PROTOCOL Performed By: #### L501.080 #### [facility] Point of Care [address] [place] [address] BEDSIDE GLUCOSE Collected: 09/11/2017 Status: F Source: [place] 5:16 PM [facility] REPOSITORY TYPE CODE TESTS RESULT OUT OF RANGE REFERENCE UNITS LAB L501.080 70-110 mg/dL Normal BEDSIDE GLU 95 Result Comment: MANAGEMENT OF PATIENT CARE PER NURSING PROTOCOL Performed By: #### L501.080 #### [facility] Point of Care [address] [place] [place] [address] BEDSIDE GLUCOSE Collected: 09/11/2017 Status: F Source: [place] 12:06 PM [facility] REPOSITORY TYPE CODE TESTS RESULT OUT OF RANGE REFERENCE UNITS LAB L501.080 70-110 mg/dL Normal BEDSIDE GLU 82 Result Comment: MANAGEMENT OF PATIENT CARE PER NURSING PROTOCOL Performed By: #### L501.080 #### [facility] Point of Care [address] [place] [place] [address] DISCHARGE INSTRUCTION Observed: 09/11/2017 Status: F Source: [place] 11:57 AM [facility] REPOSITORY [facility] Medical Records Department [facility] [place] [address] Instructions for Home/Discharge Instructions 09/10/17 1304 MR#: [id number] Acct: [id number] Name: ADRIAN APONTE Rep #: [id number] : 1970 46 From: Waqas Rodriguez MD PCP: London Lou MD Status: ADM IN Discharge Diet: No Restrictions Discharge Activity: May Not Drive May shower in (days): 2 Ice area for (Minutes): 20 - every hour while awake. Weight Bearing Status: No weight bearing - RLE Elevate: Operative Extremity Additional Activity Instructions:: Wear elastic stockings for 2 weeks after your surgery. Call your doctor if your incision/area has: Continuous Slow Oozing, Sudden Increased Bleeding, Increased Pain/ Swelling, Increased Redness, Foul Smelling Discharge Call your doctor if you observe: Fever of 101 or Higher, Coldness, Increased Pain, Numbness or Tingling, Change in Color, Calf discomfort, Uncontrolled pain Remove Dressing in (days):: 09-13-2017 Cleanse incision/area with: Soap AND Water Additional Dressing/Incision Instructions:: If incision is clean dry and intact may leave the wound open to air and continue showering. If there is continued drainage continue daily dry dressing changes and keep incision clean dry and intact until there is no drainage. Allergies/Adverse Reactions: Allergies quinine Allergy (Verified 08/23/17 16:17) Hives Medications to take at Discharge Albuterol IH (ProAir) [Proair Hfa] 2 puff INHALATION Q4H PRN PRN #1 inhaler 08/09/17 Cyclobenzaprine [Flexeril] 10 mg PO TID PRN #30 tab 08/09/17 Furosemide [Lasix] 20 mg PO DAILY #60 tab 08/09/17 Insulin Detemir [Levemir FlexPen] 20 units SC BID #60 insuln.pen 08/09/17 Lisinopril/Hydrochlorothiazide [Zestoretic 03/23.5 Tablet] 1 tab PO DAILY #60 tab 08/09/17 Omeprazole [Prilosec] 20 mg PO BID #120 cap 08/09/17 Sertraline HCl [Zoloft] 50 mg PO DAILY #60 tab 08/09/17 Gabapentin [Neurontin] 600 mg PO TIDCM 08/23/17 Metformin HCl [Glucophage] 1,000 mg PO BIDCM 08/23/17 Varenicline Tartrate [Chantix] 0.5 mg PO BID 08/23/17 Docusate Sodium [Colace] 100 mg PO BID capsule 08/29/17 Acetaminophen [Tylenol Tablet] 650 mg PO Q8H PRN PRN 09/07/17 Atenolol [Tenormin (beta tamar)] 50 mg PO BID 09/07/17 Lorazepam [Ativan] 1 mg PO QHS 09/07/17 Magnesium Hydroxide [Milk Of Magnesia] 30 ml PO DAILY PRN PRN 09/07/17 Ondansetron HCl [Zofran] 4 mg PO Q6H PRN 09/07/17 Rivaroxaban [Xarelto] 1 tab PO DAILY 09/07/17 Acetaminophen [Tylenol] 1,000 mg PO Q8 tablet 09/10/17 Glucerna Shake 120 ml PO TIDCM liquid 09/10/17 Oxycodone CR [Oxycontin] 30 mg PO BID 5 Days #10 tab 09/10/17 Oxycodone [Oxyir] 15 mg PO Q4H PRN PRN 4 Days #60 tablet 09/10/17 The following prescriptions were given: Oxycodone [Oxyir] 15 mg PO Q4H PRN PRN 4 Days #60 tablet PRN Reason: Severe Pain (6-10/) Oxycodone CR [Oxycontin] 30 mg PO BID 5 Days #10 tab Primary Care Physician: London Lou MD [Primary Care Provider] - Please Follow Up With: Waqas Rodriguez MD When: 2 weeks post op 09/11/17 1157 <Electronically signed by Waqas Rodriguez MD> Date Waqas Rodriguez MD CC: Wayne Ramesh DO; London Lou MD BEDSIDE GLUCOSE Collected: 09/11/2017 Status: F Source: [place] 6:16 AM [facility] REPOSITORY TYPE CODE TESTS RESULT OUT OF RANGE REFERENCE UNITS LAB L501.080 70-110 mg/dL Normal BEDSIDE GLU 94 Result Comment: MANAGEMENT OF PATIENT CARE PER NURSING PROTOCOL Performed By: #### L501.080 #### [facility] Point of Care [address] [place], [place] [id number] CBC-COMPLETE BLOOD CNT Collected: 09/11/2017 Status: F Source: [place] NO DIFF 5:06 AM [facility] REPOSITORY TYPE CODE TESTS RESULT OUT OF RANGE REFERENCE UNITS LAB L100.1000 4.4-11.0 K/mm3 Normal WBC 8.9 LAB L100.1200 4.6-6.2 M/mm3 Low RBC 4.33 LAB L100.1300 13.0-16.5 g/dl Normal HGB 13.6 LAB L100.1400 40-54 % Normal HCT 41.6 LAB L100.1500 80-94 fL High MCV 96.1 LAB L100.1600 27.0-32.0 pg Normal MCH 31.4 LAB L100.1700 32-36 g/gl Normal MCHC 32.7 LAB L100.1810 11.6-14.6 % Normal RDW CV 13.3 LAB L100.1820 35.1-43.9 fl High RDW SD 46.8 LAB L100.1900 150-450 K/mm3 Normal PLT 357 LAB L100.2000 6.2-12.0 fl Normal MPV 9.7 Performed By: #### L100.0500 #### [facility] [address] [facility] [place], [address] BASIC METABOLIC Collected: 09/11/2017 Status: F Source: [place] PROFILE (BMP) 5:06 AM [facility] REPOSITORY TYPE CODE TESTS RESULT OUT OF RANGE REFERENCE UNITS LAB L501.0100 74-106 mg/dL Normal GLU 93 Result Comment: Please note revised GLUCOSE reference range effective 2017. LAB L501.1000 7-18 mg/dL Normal BUN 15 LAB L501.1100 0.70-1.30 mg/dL Normal CREAT,SERUM 0.93 Result Comment: The validity of the calculated GFR AND GFRAA in patients over 70 years has not been determined. Clinical correlation is essential. LAB L501.1110 >60 mL/min Normal EST GFR 92 Result Comment: Non- GFR Calc LAB L501.1115 >60 mL/min Normal EST GFR - AA 112 Result Comment: GFR Calc LAB L501.1255 ml/min Normal Estimated CRCL 101.39 LAB L501.1300 10-20 RATIO BUN/CRE Normal 16.1 LAB L501.2200 8.5-10 mg/dL .1 CA Normal 8.9 LAB L501.5300 136-14 mmol/L Low 5 NA 134 LAB L501.5600 3.5-5. mmol/L 1 K Normal 4.1 LAB L501.5900 98-107 mmol/L CL Normal 101 LAB L501.6100 21.0-3 mmol/L 2.0 CO2 Normal 24.0 LAB L501.6200 5-15 GAP Normal 9 Performed By: #### L500.2500 #### [facility] [address] [place], [address] BEDSIDE GLUCOSE Collected: 09/10/2017 Status: F Source: [place] 10:42 PM [facility] REPOSITORY TYPE CODE TESTS RESULT OUT OF RANGE REFERENCE UNITS LAB L501.080 70-110 mg/dL Normal BEDSIDE GLU 91 Result Comment: MANAGEMENT OF PATIENT CARE PER NURSING PROTOCOL Performed By: #### L501.080 #### [facility] Point of Care [address] [place] [address] BEDSIDE GLUCOSE Collected: 09/10/2017 Status: F Source: [place] 4:24 PM [facility] TYPE CODE TESTS RESULT OUT OF RANGE REFERENCE UNITS LAB L501.080 70-110 mg/dL Normal BEDSIDE GLU 100 Result Comment: MANAGEMENT OF PATIENT CARE PER NURSING PROTOCOL Performed By: #### L501.080 #### [facility] Point of Care [address] [place] [address] BEDSIDE GLUCOSE Collected: 09/10/2017 Status: F Source: [place] 11:38 AM [facility] REPOSITORY TYPE CODE TESTS RESULT OUT OF RANGE REFERENCE UNITS LAB L501.080 70-110 mg/dL Normal BEDSIDE GLU 110 Result Comment: MANAGEMENT OF PATIENT CARE PER NURSING PROTOCOL Performed By: #### L501.080 #### [facility] Point of Care [address] [place] [address] KNEE 1 OR 2 VIEWS Observed: 09/10/2017 Status: F Source: [place] 8:45 AM [facility] REPOSITORY [facility] Imaging Services [address] [place] [address] Knee 1 or 2 Views MR#: [id number] Acct: [id number] Name: ADRIAN APONTE . Rep #: [id number] : 1970 M 46 From: Saeed Bahena MD PCP: London Lou MD Status: ADM IN Study: Knee 1 or 2 Views Date of Exam: 09/10/17 Exam# [id number] Ordering Dr: Lydia Riggs STUDY: X-RAY - RIGHT KNEE REASON FOR EXAM: Male, 46 years old. Knee pain. TECHNIQUE: 2 view(s) of the knee. COMPARISON: 09/09/2017. FINDINGS: There again are 2 surgical screws traversing the medial femoral condyle. Normal visualized proximal tibia and fibula. Normal proximal tibiofibular articulation. Normal medial femorotibial compartment. Normal lateral femorotibial compartment. Normal patellofemoral articulation. Is probable effusion in the suprapatellar joint space. There again are skin anne marie. Gas in the soft tissues are seen likely due to recent surgery. There is soft tissue swelling. RAD/Knee 1 or 2 Views IMPRESSION: Postoperative changes. No significant change. Electronically Signed: Saeed Bahena MD at 12:15 EDT Tel , Service support , CC: EZEQUIEL Riggs; London Lou MD Technical Support Director: Signed CBC-COMPLETE BLOOD CNT Collected: 09/10/2017 Status: F Source: [place] NO DIFF 7:25 AM [facility] REPOSITORY TYPE CODE TESTS RESULT OUT OF RANGE REFERENCE UNITS LAB L100.1000 4.4-11.0 K/mm3 Normal WBC 9.8 LAB L100.1200 4.6-6.2 M/mm3 Low RBC 4.22 LAB L100.1300 13.0-16.5 g/dl Normal HGB 13.3 LAB L100.1400 40-54 % Normal HCT 40.0 LAB L100.1500 80-94 fL High MCV 94.8 LAB L100.1600 27.0-32.0 pg Normal MCH 31.5 LAB L100.1700 32-36 g/gl Normal MCHC 33.3 LAB L100.1810 11.6-14.6 % Normal RDW CV 13.4 LAB L100.1820 35.1-43.9 fl High RDW SD 46.8 LAB L100.1900 150-450 K/mm3 Normal PLT 332 LAB L100.2000 6.2-12.0 fl Normal MPV 9.0 Performed By: #### L100.0500 #### [facility] [address] [place], [address] BASIC METABOLIC Collected: 09/10/2017 Status: F Source: [place] PROFILE (BMP) 7:25 AM [facility] REPOSITORY TYPE CODE TESTS RESULT OUT OF RANGE REFERENCE UNITS LAB L501.0100 74-106 mg/dL Normal GLU 95 Result Comment: Please note revised GLUCOSE reference range effective 2017. LAB L501.1000 7-18 mg/dL Normal BUN 17 LAB L501.1100 0.70-1.30 mg/dL Normal CREAT,SERUM 1.04 Result Comment: The validity of the calculated GFR AND GFRAA in patients over 70 years has not been determined. Clinical correlation is essential. LAB L501.1110 >60 mL/min Normal EST GFR 81 Result Comment: Non- GFR Calc LAB L501.1115 >60 mL/min Normal EST GFR - AA 98 Result Comment: GFR Calc LAB L501.1255 ml/min Normal Estimated CRCL 90.67 LAB L501.1300 10-20 RATIO Normal BUN/CRE 16.3 LAB L501.2200 8.5-10 mg/dL Normal .1 CA 8.5 LAB L501.5300 136-14 mmol/L Normal 5 NA 136 LAB L501.5600 3.5-5. mmol/L Normal 1 K 4.0 LAB L501.5900 98-107 mmol/L Normal CL 103 LAB L501.6100 21.0-3 mmol/L Normal 2.0 CO2 27.0 LAB L501.6200 5-15 Normal GAP 6 Performed By: #### L500.2500 #### [facility] [address] [facility] [place], [address] BEDSIDE GLUCOSE Collected: 09/10/2017 Status: F Source: [place] 6:44 AM [facility] REPOSITORY TYPE CODE TESTS RESULT OUT OF RANGE REFERENCE UNITS LAB L501.080 70-110 mg/dL Normal BEDSIDE GLU 101 Result Comment: MANAGEMENT OF PATIENT CARE PER NURSING PROTOCOL Performed By: #### L501.080 #### [facility] Point of Care [address] [place] [address] BEDSIDE GLUCOSE Collected: 09/09/2017 Status: F Source: [place] 10:03 PM [facility] REPOSITORY TYPE CODE TESTS RESULT OUT OF RANGE REFERENCE UNITS LAB L501.080 70-110 mg/dL Normal BEDSIDE GLU 92 Result Comment: MANAGEMENT OF PATIENT CARE PER NURSING PROTOCOL Performed By: #### L501.080 #### [facility] Point of Care [address] [place] [address] BEDSIDE GLUCOSE Collected: 09/09/2017 Status: F Source: [place] 5:15 PM [facility] REPOSITORY TYPE CODE TESTS RESULT OUT OF REFERENCE UNITS RANGE LAB L501.080 70-110 mg/dL High BEDSIDE GLU 126 Result Comment: MANAGEMENT OF PATIENT CARE PER NURSING PROTOCOL Performed By: #### L501.080 #### [facility] Point of Care [address] [place] [address] BEDSIDE GLUCOSE Collected: 09/09/2017 Status: F Source: [place] 11:27 AM [facility] REPOSITORY TYPE CODE TESTS RESULT OUT OF RANGE REFERENCE UNITS LAB L501.080 70-110 mg/dL Normal BEDSIDE GLU 84 Result Comment: MANAGEMENT OF PATIENT CARE PER NURSING PROTOCOL Performed By: #### L501.080 #### [facility] Point of Care [address] [place] [address] KNEE 1 OR 2 VIEWS Observed: 09/09/2017 Status: F Source: [place] 8:24 AM [facility] REPOSITORY [facility] Imaging Services [address] [place] [address] Knee 1 or 2 Views MR#: [id number] Acct: [id number] Name: ADRIAN APONTE . Rep #: [id number] : 1970 M 46 From: Saeed Bahena MD PCP: London Lou MD Status: ADM IN Study: Knee 1 or 2 Views Date of Exam: 09/09/17 Exam# [id number] Ordering Dr: Waqas Rodriguez MD STUDY: X-RAY - RIGHT KNEE REASON FOR EXAM: Male, 46 years old. Postoperative exam. TECHNIQUE: 3 view(s) of the knee. COMPARISON: 08/23/2017. FINDINGS: There are 2 surgical screws traversing the medial femoral condyle. Normal visualized proximal tibia and fibula. Normal proximal tibiofibular articulation. There is no demonstrated acute fracture. Normal medial femorotibial compartment. Normal lateral femorotibial compartment. Normal patellofemoral articulation. There again is moderate effusion in the suprapatellar joint space. There is soft tissue swelling and edema. There is gas in the soft tissues consistent with recent surgery. There are skin anne marie. RAD/Knee 1 or 2 Views IMPRESSION: Postoperative exam as described above. Electronically Signed: Saeed Bahena MD at 10:41 EDT Tel , Service support , CC: London Lou MD; Waqas Rodriguez MD Technical Support Director: Signed CBC-COMPLETE BLOOD CNT Collected: 09/09/2017 Status: F Source: [place] NO DIFF 6:45 AM [facility] REPOSITORY TYPE CODE TESTS RESULT OUT OF RANGE REFERENCE UNITS LAB L100.1000 4.4-11.0 K/mm3 High WBC 11.8 LAB L100.1200 4.6-6.2 M/mm3 Low RBC 4.11 LAB L100.1300 13.0-16.5 g/dl Normal HGB 13.1 LAB L100.1400 40-54 % Low HCT 39.3 LAB L100.1500 80-94 fL High MCV 95.6 LAB L100.1600 27.0-32.0 pg Normal MCH 31.9 LAB L100.1700 32-36 g/gl Normal MCHC 33.3 LAB L100.1810 11.6-14.6 % Normal RDW CV 13.3 LAB L100.1820 35.1-43.9 fl High RDW SD 44.8 LAB L100.1900 150-450 K/mm3 Normal PLT 359 LAB L100.2000 6.2-12.0 fl Normal MPV 9.6 Performed By: #### L100.0500 #### [facility] [address] [place], [address] BASIC METABOLIC Collected: 09/09/2017 Status: F Source: [place] PROFILE (BMP) 6:45 AM [facility] REPOSITORY TYPE CODE TESTS RESULT OUT OF RANGE REFERENCE UNITS LAB L501.0100 74-106 mg/dL Normal GLU 96 Result Comment: Please note revised GLUCOSE reference range effective 2017. LAB L501.1000 7-18 mg/dL Normal BUN 14 LAB L501.1100 0.70-1.30 mg/dL Normal CREAT,SERUM 1.03 Result Comment: The validity of the calculated GFR AND GFRAA in patients over 70 years has not been determined. Clinical correlation is essential. LAB L501.1110 >60 mL/min Normal EST GFR 82 Result Comment: Non- GFR Calc LAB L501.1115 >60 mL/min Normal EST GFR - AA 99 Result Comment: GFR Calc LAB L501.1255 ml/min Normal Estimated CRCL 91.55 LAB L501.1300 10-20 RATIO Normal BUN/CRE 13.6 LAB L501.2200 8.5-10 mg/dL Low .1 CA 8.4 LAB L501.5300 136-14 mmol/L Low 5 NA 135 LAB L501.5600 3.5-5. mmol/L Normal 1 K 3.9 LAB L501.5900 98-107 mmol/L Normal CL 102 LAB L501.6100 21.0-3 mmol/L Normal 2.0 CO2 25.0 LAB L501.6200 5-15 Normal GAP 8 Performed By: #### L500.2500 #### [facility] [address] [place], [address] BEDSIDE GLUCOSE Collected: 09/09/2017 Status: F Source: [place] 6:41 AM [facility] REPOSITORY TYPE CODE TESTS RESULT OUT OF RANGE REFERENCE UNITS LAB L501.080 70-110 mg/dL Normal BEDSIDE GLU 102 Result Comment: MANAGEMENT OF PATIENT CARE PER NURSING PROTOCOL Performed By: #### L501.080 #### [facility] Point of Care [address] [place] [address] BEDSIDE GLUCOSE Collected: 09/08/2017 Status: F Source: [place] 9:53 PM [facility] REPOSITORY TYPE CODE TESTS RESULT OUT OF REFERENCE UNITS RANGE LAB L501.080 70-110 mg/dL High BEDSIDE GLU 128 Result Comment: MANAGEMENT OF PATIENT CARE PER NURSING PROTOCOL Performed By: #### L501.080 #### [facility] Point of Care [address] [place] [address] BEDSIDE GLUCOSE Collected: 09/08/2017 Status: F Source: [place] 3:44 PM [facility] REPOSITORY TYPE CODE TESTS RESULT OUT OF REFERENCE UNITS RANGE LAB L501.080 70-110 mg/dL High BEDSIDE GLU 146 Result Comment: MANAGEMENT OF PATIENT CARE PER NURSING PROTOCOL Performed By: #### L501.080 #### [facility] Point of Care [address] [place] [address] OPERATIVE REPORT Observed: 09/08/2017 Status: F Source: [place] 2:54 PM [facility] REPOSITORY [facility] Medical Records Department [address] [place] [address] Operative Report 09/08/17 1442 MR#: [id number] Acct: [id number] Name: ADRIAN APONTE Jr. Rep #: [id number] : 1970 46 From: Waqas Rodriguez MD PCP: London Lou MD Status: ADM IN Y Location: [place] [id number] Report of Operation Date of Procedure: 09/08/17 Pre-Operative Diagnosis: Right distal femur medial posterior condyle fracture Post-Operative Diagnosis: Right distal femur medial posterior condyle fracture Surgery/Procedure Performed:: ORIF Right distal femur medial posterior condyle fracture Description of Surgical Findings:: well reduced fracture touch up painter: Juany Rodriguez Type of Anesthesia:: General Anesthesiologist: Jt Ojeda Special Medications: 3 gm ancef Estimated Blood Loss (mL): 25 Fluids Replaced: 1000 ml crystalloid Description of Procedure: 46-year-old male fell at the grocery store sustaining a posterior medial femoral condyle shear fracture. Initially the fracture was within acceptable limits. However when he came to the office 2 weeks post injury the fracture showed further displacement. At that time we discussed risks and benefits of surgical intervention for open reduction internal fixation which included but were not limited to blood loss, DVTs, PEs, neurovascular damage, infection, general risk of anesthesia including loss of life. Patient demonstrated understanding. He was admitted to the hospital for preoperative clearance as he did not have a primary care doctor. After obtaining medical clearance patient was ready for surgery the following day. Procedure: On the date of the procedure patient's right knee was marked in the preoperative area. Patient was brought back to the operating room he was transferred to the table in supine position. Anesthesia assumed control the C-spine airway and remained controlled throughout the remainder the procedure. All bony prominences were identified well-padded and patient was anesthetized by anesthesia. He was placed on right upper thigh. Surgeon scrubbed and right lower extremity was prepped in a sterile fashion. Upon reentering the room the right lower extremity was draped in standard orthopedic fashion and a timeout was called. When agreed upon the side, the site from the procedure be performed, patient identity and antibiotics given. Incision was marked out. Esmarch bandage used to obtain it extremity and tourniquet was placed up to 300 mmHg. Incision was taken at the skin subtenons tissue fat down to fascia. Once the fascia was identified a standard medial parapatellar arthrotomy was made. We are very careful not to cut through the tendon and injure the underlying cartilage. We also are very careful to maintain the integrity of the medial meniscus. Once the arthrotomy was made and he was flexed up and the fracture be identified. Wound was copiously reviewed out normal saline. Polvadera was used to help reduce the fracture. Fracture was best reduced with the knee in flexion. 2 K wires were placed for cannulated screws. Once these K wires are placed and he was placed in extension and fracture reduction was maintained. Using the K wire depth gauge 2 60 mm screws were selected. These screws were advanced by hand to compress the fracture. There were then countersunk in an appropriate manner. After the 2 screws were placed live x-ray was used to verify fracture reduction. We also took the knee through rotational motion in order to verify that the screws were not protruding through the bone on projectional views. Once we are happy with the placement of the screws final AP and lateral radiographs were taken. Knee was flexed up and fracture reduction was verified. Stability of the fracture was also verified. Once this was completed wound was copiously irrigated out normal saline. Aqua Mantis was used to obtain hemostasis. Once wound is clean and dry it was once again irrigated out with normal saline and #1 Vicryl was used to close the arthrotomy. First with interrupted sutures then with running suture. Once this was done 2-0 Vicryl was used to close the skin. Final skin closure was done with anne marie. Silver dressing was placed. Compressive dressing was placed. Knee was placed in a knee immobilizer. Patient was awakened by anesthesia and transferred to PACU for recovery. Plan for this patient: Nonweightbearing for a total 6 weeks. Patient has no restrictions on range of motion. We will start 50% weightbearing at 6 week. Grafts/Implants Used: 4.0 mm synthes headless - Complications none - Admit VTE Documentation VTE Present on Admission: No VTE Mechan Device Prophylaxis: SCD's, Thigh High ELVIN Hose VTE Pharm Prophylaxis ordered?: Yes 09/08/17 1454 <Electronically signed by Waqas Rodriguez MD> Date Waqas Rodriguez MD CC: Wayne Ramesh DO; London Lou MD; Waqas Rodriguez MD Signed BEDSIDE GLUCOSE Collected: 09/08/2017 Status: F Source: [place] 11:59 AM [facility] REPOSITORY TYPE CODE TESTS RESULT OUT OF RANGE REFERENCE UNITS LAB L501.080 70-110 mg/dL Normal BEDSIDE GLU 102 Result Comment: MANAGEMENT OF PATIENT CARE PER NURSING PROTOCOL Performed By: #### L501.080 #### [facility] Point of Care [address] [place], [place] [address] BEDSIDE GLUCOSE Collected: 09/08/2017 Status: F Source: [place] 6:39 AM [facility] REPOSITORY TYPE CODE TESTS RESULT OUT OF RANGE REFERENCE UNITS LAB L501.080 70-110 mg/dL Normal BEDSIDE GLU 108 Result Comment: MANAGEMENT OF PATIENT CARE PER NURSING PROTOCOL Performed By: #### L501.080 #### [facility] Point of Care [address] [place], [place] [address] TYPE AND SCREEN Collected: 09/08/2017 Status: F Source: [place] 6:20 AM [facility] REPOSITORY Order Comment: Reason for Type AND Screen/Red Cells: SURGERY Surgery Date: 09/08/17 TYPE CODE TESTS RESULT OUT OF RANGE REFERENCE UNITS LAB B10.0800 A Normal BLOOD TYPE GEL POSITIVE LAB B100.4000 Normal Antibody NEGATIVE Screen Performed By: #### B101.7450 #### [facility] [address] [place], [place], [address] KNEE 1 OR 2 VIEWS Observed: 09/08/2017 Status: F Source: [place] 1:22 AM [facility] REPOSITORY [facility] Imaging Services [address] [place] [address] Knee 1 or 2 Views MR#: [id number] Acct: [id number] Name: ADRIAN APONTE Jr. Rep #: [id number] : 1970 M 46 From: Eliazar Funes MD PCP: London Lou MD Status: DIS IN Study: Knee 1 or 2 Views Date of Exam: 09/08/17 Exam# [id number] Ordering Dr: Waqas Rodriguez MD STUDY: X-RAY - RIGHT KNEE REASON FOR EXAM: Male, 46 years old. Intraoperative imaging. TECHNIQUE: AP and lateral view(s) of the knee were obtained intraoperatively. COMPARISON: None. FINDINGS: 2 metallic screws are seen in the medial femoral condyle. RAD/Knee 1 or 2 Views IMPRESSION: 2 metallic screws are seen in the medial femoral condyle. Electronically Signed: Eliazar Funes MD at 14:28 EDT Tel [phone], Service support , CC: London Lou MD; Waqas Rodriguez MD Technical Support Director: Signed BEDSIDE GLUCOSE Collected: 09/07/2017 Status: F Source: [place] 10:00 PM [facility] REPOSITORY TYPE CODE TESTS RESULT OUT OF RANGE REFERENCE UNITS LAB L501.080 70-110 mg/dL Normal BEDSIDE GLU 95 Result Comment: MANAGEMENT OF PATIENT CARE PER NURSING PROTOCOL Performed By: #### L501.080 #### [facility] Point of Care [address] [place] [address] BASIC METABOLIC Collected: 09/07/2017 Status: F Source: [place] PROFILE (BMP) 3:51 PM [facility] REPOSITORY TYPE CODE TESTS RESULT OUT OF RANGE REFERENCE UNITS LAB L501.0100 74-106 mg/dL Normal GLU 91 Result Comment: Please note revised GLUCOSE reference range effective 2017. LAB L501.1000 7-18 mg/dL Normal BUN 13 LAB L501.1100 0.70-1.30 mg/dL Normal CREAT,SERUM 0.95 Result Comment: The validity of the calculated GFR AND GFRAA in patients over 70 years has not been determined. Clinical correlation is essential. LAB L501.1110 >60 mL/min Normal EST GFR 90 Result Comment: Non- GFR Calc LAB L501.1115 >60 mL/min Normal EST GFR - AA 109 Result Comment: GFR Calc LAB L501.1255 ml/min Normal Estimated CRCL 102.38 LAB L501.1300 10-20 RATIO BUN/CRE Normal 13.7 LAB L501.2200 8.5-10 mg/dL .1 CA Normal 8.6 LAB L501.5300 136-14 mmol/L 5 NA Normal 136 LAB L501.5600 3.5-5. mmol/L 1 K Normal 3.6 LAB L501.5900 98-107 mmol/L CL Normal 102 LAB L501.6100 21.0-3 mmol/L 2.0 CO2 Normal 26.0 LAB L501.6200 5-15 GAP Normal 8 Performed By: #### L500.2500 #### [facility] [address] [facility] [place], [address] CBC W/DIFF, AUTOMATED Collected: 09/07/2017 Status: F Source: [place] 3:51 PM [facility] REPOSITORY TYPE CODE TESTS RESULT OUT OF RANGE REFERENCE UNITS LAB L100.1000 4.4-11.0 K/mm3 Normal WBC 9.1 LAB L100.1200 4.6-6.2 M/mm3 Low RBC 4.34 LAB L100.1300 13.0-16.5 g/dl Normal HGB 13.7 LAB L100.1400 40-54 % Normal HCT 41.3 LAB L100.1500 80-94 fL High MCV 95.2 LAB L100.1600 27.0-32.0 pg Normal MCH 31.6 LAB L100.1700 32-36 g/gl Normal MCHC 33.2 LAB L100.1810 11.6-14.6 % Normal RDW CV 13.2 LAB L100.1820 35.1-43.9 fl High RDW SD 44.5 LAB L100.1900 150-450 K/mm3 Normal PLT 344 LAB L100.2000 6.2-12.0 fl Normal MPV 9.7 LAB L100.2100 47-70 % Normal NEUT% 57.7 LAB L100.2200 19-41 % Normal LY% 29.5 LAB L100.2300 0-10 % High MONO% 10.6 LAB L100.2400 0-5 % Normal EO% 1.3 LAB L100.2500 0-1 % Normal BASO% 0.8 LAB L100.2550 0.0-0.9 % Normal IM GRAN % 0.100 Result Comment: IG% - Immature Granulocytes (promyelocytes, myelocytes and metamyelocytes) > 1% indicates that a LEFT SHIFT is Present. LAB L100.2620 2.0-7.7 X10 3/uL Normal Absolute Neut 5.3 LAB L100.2720 0.83-4.51 X10 3/ul Normal Absolute Lymph 2.69 Performed By: #### L100.0100 #### [facility] [address] [place], [address] HEMOGLOBIN A1C Collected: 09/07/2017 Status: F Source: [place] 3:51 PM [facility] REPOSITORY TYPE CODE TESTS RESULT OUT OF RANGE REFERENCE UNITS LAB L501.9985 4.2-6.3 % High HGB A1C 7.2 Performed By: #### L501.9985 #### [facility] [address] [place], [address] CHEST 1 VIEW Observed: 09/07/2017 Status: F Source: [place] (PORTABLE) 3:39 PM [facility] REPOSITORY [facility] Imaging Services [address] [place] [address] Chest 1 View (Portable) MR#: [id number] Acct: [id number] Name: ADRIAN APONTE Jr. Rep #: [id number] : 1970 M 46 From: Stanley Cordero MD PCP: London Lou MD Status: ADM IN Study: Chest 1 View (Portable) Date of Exam: 09/07/17 Exam# [id number] Ordering Dr: Lydia Riggs CONCRETE BUCKET HOOKER-C STUDY: X-RAY CHEST REASON FOR EXAM: Male, 46 years old. HAVING KNEE SURGERY SOON, HX PE AND SOB TECHNIQUE: Single AP portable view of the chest. COMPARISON: August 23, 2017 FINDINGS: There is an elevated right hemidiaphragm. The lungs are clear and expanded. There is no demonstrated pleural abnormality. Normal size heart. Normal mediastinum and natalia. Normal visualized pulmonary arteries. Normal visualized aortic arch and descending thoracic aorta. Normal visualized thoracic spine. Normal visualized ribs, clavicles, and shoulders. There is no demonstrated abnormality of the visualized soft tissue structures of the upper abdomen. RAD/Chest 1 View (Portable) IMPRESSION: Normal x-ray examination of the chest. Electronically Signed: Stanley Cordero MD at 16:17 EDT , Service support , CC: EZEQUIEL Riggs; London Lou MD Technical Support Director: Signed CYTOLOGY Observed: 09/05/2017 Status: F Source: [place] 9:28 AM [facility] REPOSITORY Specimen originated from [facility] Specimen #: [id number] Submitting Physician: BRAYDON PENA M.D. (Q10) SPECIMEN SUBMITTED A: URINE, VOIDED FINAL DIAGNOSIS A. URINE, VOIDED Atypical cells suspicious for high-grade urothelial carcinoma. Blood. Comment: The case was reviewed in consultation with Dr. Bashir Camarena, who concurs. Ana Rosa Rhodes M.D. (Electronic Signature) CLINICAL DATA Hematuria GROSS DESCRIPTION 80cc clear yellow fluid STAINS A: URINE, VOIDED THIN PREP Non-Aerophysics Engineer Date of Report: 09/07/2017 Date of Procedure: 09/05/2017 Date of Receipt: 09/05/2017 Submitted by: BRAYDON PENA M.D. (Q10) Location: [facility] Diagnostic interpretation performed at [facility], [address] [place], [place] [id number]. PROGRESS Observed: 09/05/2017 Status: COMPLETED Source: [place] 8:25 AM [facility] REPOSITORY HNO ID: [id number] Author: [place] (Res) Lester Nelson Service: (none) Author Type: Resident Type: Progress Notes Filed: 09/06/2017 10:41 PM Note Text: [facility] NEW PATIENT HISTORY AND PHYSICAL EXAM PATIENT INFO: Adrian Aponte Jr. 46 year old REFERRING M.D.: ANKUSH LOU PCP: Ankush Lou HISTORY Consultation requested by ANKUSH LOU for an opinion regarding Hematuria and my final recommendations will be communicated back to the requesting physician by way of shared medical record or letter via [place] mail. CHIEF COMPLAINT: hematuria HPI: History of Present Illness: 46 y/o male with multiple comorbidities listed below. On xarelto for hx of PE/cardiac arrest 2 years ago during knee surgery. Reports intermitent jaron hematuria for the last year and half. Mostly mild than resolved after few days. Last episode about 4 weeks ago which got worse than previous episodes, he reports large clots passage. He was told to have a UTI and after abx it resolves. He did got a CT scan and was told that everything was normal but he did not bring records. He recent jazmyn break his right knee and is waiting for ortho visit. Currently leaving in SNF and using a wheelchair. He reports minimal LUTS otherwise mainly hesitancy. No hx of stones of malignancy. He is a smoker. No weight loss. No hx of recurrent UTIs. No previous instrumentarion Disease Specificity: Acuity: Chronic Anatomic Site: urine Underlying Condition/Causal Agent: Primary Associated Conditions/Manifestations: N/A Location: urine Quality: Pain: None Severity: Moderate: 4-7 Duration: Old Timing: intermitent Context: xarelto Modifying Factors: Other: none Associated with: none MEDICATIONS: Current Outpatient Prescriptions: POTASSIUM ORAL Take by mouth. Disp: Rfl: GLUCOSAMINE SULFATE (GLUCOSAMINE ORAL) Take by mouth. Disp: Rfl: gabapentin (NEURONTIN) 300 mg capsule Disp: Rfl: sertraline (ZOLOFT) 25 mg tablet Disp: Rfl: XARELTO 15 mg tablet Disp: Rfl: ASPIRIN ORAL Take by mouth. Disp: Rfl: atenolol (TENORMIN) 100 mg tablet Disp: Rfl: hydrochlorothiazide (HYDRODIURIL, ESIDRIX) 25 mg tablet Disp: Rfl: omeprazole (PRILOSEC) 20 mg capsule Disp: Rfl: lisinopril-hydrochlorothiazide (PRINZIDE,ZESTORETIC) 10-12.5 mg per tablet Disp: Rfl: traMADol (ULTRAM) 50 mg tablet as needed. Disp: Rfl: No current facility-administered medications for this visit. MEDICATION ALLERGIES: ALLERGIES Allergen Reactions - Lucho Paulson PAST MEDICAL HISTORY: PAST MEDICAL HISTORY Diagnosis Date - Arthritis - Hx of blood clots 01/25 Blood clot in lung and behind right knee - Hypertension PAST SURGICAL HISTORY: PAST SURGICAL HISTORY Procedure Laterality Date - APPENDECTOMY HX - KNEE ARTHROSCOPY/SURGERY 01/25 left knee - RIGHT HEART CATHERIZATION - TOTAL HIP REPLACEMENT right hip FAMILY HISTORY: FAMILY HISTORY Problem Relation Age of Onset - Heart Father - Heart Mother - Diabetes Other SOCIAL HISTORY: Social History Marital status: Spouse name: Years of education: Number of children: Social History Main Topics Smoking status: Former Smoker Packs/day: 1.00 Years: 0.00 Types: Cigarettes Smokeless status: Former User Alcohol use: Yes Drug use: No REVIEW OF SYSTEMS: GENERAL: No fever, chills, weight loss, or fatigue. HEAD AND NECK: No blurred vision,or hearing loss. CARDIOVASCULAR:NO CHEST PAIN, PALPITATIONS, ANKLE EDEMA RESPIRATORY: No chronic cough, wheezing, dyspnea, hemoptysis. GENITOURINARY: SEE HPI MUSCULOSKELETAL:ARTHRITIS, OTHER: broken right knee SKIN: NO VARICOSE VEINS, RASH, ABNORMAL ITCHING BLOOD/LYMPHATIC: No easy bleeding, easy bruising, transfusion Hx NEUROLOGICAL: NO HEADACHES, NUMBNESS, SEIZURES, STROKE PHYSICAL EXAM: There were no vitals taken for this visit. GENERAL:obese on wheelchair HEAD AND NECK: No masses, adenopathy, icterus. Thyroid nonpalpable RESP: Chest clear to auscultation without wheezing, rales, or rhonchi. CV: RRR, no murmurs, rubs or gallops ABDOMEN: Soft, nontender, nondistended, no masses. HERNIAS: None SKIN/LYMPH: No rash, lesions NEURO/PSYCH: No signs of depression, anxiety, or agitation EXTREMITIES:right leg edematous with cast, left leg wnl GENITOURINARY: MALE EXAM: Circumcised, normal phallus, normal testes. DYESI deferred at this time given obesity, wheelchair and broken leg with poor mobility and dificult positioning (A1) IMPRESSION: 46 y/o male with multiple co morbidities including morbid obesity and on xarelto for PE?cardiac arrest 2 years ago during knee surgery. Intermitent gross hematuria. Do not have report of OSH CT scan. UA clean today (A2) PLAN: Need OSH records with images for CT scan otherwise will need CTU Cysto in hops [facility] Phoenix Nelson MD STAFF NOTE: The above history and physical was reviewed with the Resident and the york findings were confirmed. Patient was examined. These were discussed with the Resident and the patient. The plan was then outlined. Nya Pena MD Staff Electronically signed By signing my name below, Jong Dudley, attest that this documentation has been prepared under the direction and in the presence of Braydon Pena MD. Electronically signed: Erick Dean, September 05, 2017 9:47 AM I, Braydon Pena MD. , personally performed the services described in this documentation. All medical record entries made by the scribe were at my direction and in my presence. I have reviewed the chart and discharge instructions (if applicable) and agree that the record reflects my personal performance and is accurate and complete. Braydon Pena MD. September 05, 2017 9:47 AM CNOV Observed: 09/05/2017 Status: COMPLETED Source: [place] 8:20 AM [facility] REPOSITORY Office Visit (UROLMN) ADRIAN APONTE JR. ([id number]) 1970 M Date Time Provider Department 09/05/17 8:20 AM NYA PENA During your visit today, we recorded the following information about you: Temperature Pulse Weight Height 98.5 degrees 83/minute 181.4 kg 1.803 m Phoenix Nelson, 09/05/2017 9:27 AM Signed [facility] NEW PATIENT HISTORY AND PHYSICAL EXAM PATIENT INFO: Adrian Aponte Jr. 46 year old REFERRING M.D.: ANKUSH LOU PCP: Ankush Lou HISTORY Consultation requested by ANKUSH LOU for an opinion regarding Hematuria and my final recommendations will be communicated back to the requesting physician by way of shared medical record or letter via US mail. CHIEF COMPLAINT: ANDquot;hematuriaANDquot; HPI: History of Present Illness: 46 y/o male with multiple comorbidities listed below. On xarelto for hx of PE/cardiac arrest 2 years ago during knee surgery. Reports intermitent jaron hematuria for the last year and half. Mostly mild than resolved after few days. Last episode about 4 weeks ago which got worse than previous episodes, he reports large clots passage. He was told to have a UTI and after abx it resolves. He did got a CT scan and was told that everything was normal but he did not bring records. He recent jazmyn break his right knee and is waiting for ortho visit. Currently leaving in SNF and using a wheelchair. He reports minimal LUTS otherwise mainly hesitancy. No hx of stones of malignancy. He is a smoker. No weight loss. No hx of recurrent UTIs. No previous instrumentarion Disease Specificity: Acuity: Chronic Anatomic Site: urine Underlying Condition/Causal Agent: Primary Associated Conditions/Manifestations: N/A Location: urine Quality: Pain: None Severity: Moderate: 4-7 Duration: Old Timing: intermitent Context: xarelto Modifying Factors: Other: none Associated with: none MEDICATIONS: Current Outpatient Prescriptions: POTASSIUM ORAL Take by mouth. Disp: Rfl: GLUCOSAMINE SULFATE (GLUCOSAMINE ORAL) Take by mouth. Disp: Rfl: gabapentin (NEURONTIN) 300 mg capsule Disp: Rfl: sertraline (ZOLOFT) 25 mg tablet Disp: Rfl: XARELTO 15 mg tablet Disp: Rfl: ASPIRIN ORAL Take by mouth. Disp: Rfl: atenolol (TENORMIN) 100 mg tablet Disp: Rfl: hydrochlorothiazide (HYDRODIURIL, ESIDRIX) 25 mg tablet Disp: Rfl: omeprazole (PRILOSEC) 20 mg capsule Disp: Rfl: lisinopril-hydrochlorothiazide (PRINZIDE,ZESTORETIC) 10-12.5 mg per tablet Disp: Rfl: traMADol (ULTRAM) 50 mg tablet as needed. Disp: Rfl: No current facility-administered medications for this visit. MEDICATION ALLERGIES: ALLERGIES Allergen Reactions - Quinine Hives PAST MEDICAL HISTORY: PAST MEDICAL HISTORY Diagnosis Date - Arthritis - Hx of blood clots 01/25 Blood clot in lung and behind right knee - Hypertension PAST SURGICAL HISTORY: PAST SURGICAL HISTORY Procedure Laterality Date - APPENDECTOMY HX - KNEE ARTHROSCOPY/SURGERY 01/25 left knee - RIGHT HEART CATHERIZATION - TOTAL HIP REPLACEMENT right hip FAMILY HISTORY: FAMILY HISTORY Problem Relation Age of Onset - Heart Father - Heart Mother - Diabetes Other SOCIAL HISTORY: Social History Marital status: Spouse name: Years of education: Number of children: Social History Main Topics Smoking status: Former Smoker Packs/day: 1.00 Years: 0.00 Types: Cigarettes Smokeless status: Former User Alcohol use: Yes Drug use: No REVIEW OF SYSTEMS: GENERAL: No fever, chills, weight loss, or fatigue. HEAD ANDamp; NECK: No blurred vision,or hearing loss. CARDIOVASCULAR:NO CHEST PAIN, PALPITATIONS, ANKLE EDEMA RESPIRATORY: No chronic cough, wheezing, dyspnea, hemoptysis. GENITOURINARY: SEE HPI MUSCULOSKELETAL:ARTHRITIS, OTHER: broken right knee SKIN: NO VARICOSE VEINS, RASH, ABNORMAL ITCHING BLOOD/LYMPHATIC: No easy bleeding, easy bruising, transfusion Hx NEUROLOGICAL: NO HEADACHES, NUMBNESS, SEIZURES, STROKE PHYSICAL EXAM: There were no vitals taken for this visit. GENERAL:obese on wheelchair HEAD ANDamp; NECK: No masses, adenopathy, icterus. Thyroid nonpalpable RESP: Chest clear to auscultation without wheezing, rales, or rhonchi. CV: RRR, no murmurs, rubs or gallops ABDOMEN: Soft, nontender, nondistended, no masses. HERNIAS: None SKIN/LYMPH: No rash, lesions NEURO/PSYCH: No signs of depression, anxiety, or agitation EXTREMITIES:right leg edematous with cast, left leg wnl GENITOURINARY: MALE EXAM: Circumcised, normal phallus, normal testes. DEYSI deferred at this time given obesity, wheelchair and broken leg with poor mobility and dificult positioning (A1) IMPRESSION: 46 y/o male with multiple co morbidities including morbid obesity and on xarelto for PE?cardiac arrest 2 years ago during knee surgery. Intermitent gross hematuria. Do not have report of OSH CT scan. UA clean today (A2) PLAN: Need OSH records with images for CT scan otherwise will need CTU Cysto in hops [facility] Phoenix Nelson MD STAFF NOTE: The above history and physical was reviewed with the Resident and the york findings were confirmed. Patient was examined. These were discussed with the Resident and the patient. The plan was then outlined. Nya Pena MD Staff Electronically signed By signing my name below, IJong, attest that this documentation has been prepared under the direction and in the presence of Kin Pena MD. Electronically signed: Erick Dean, September 05, 2017 9:47 AM IBraydon MD. , personally performed the services described in this documentation. All medical record entries made by the scribe were at my direction and in my presence. I have reviewed the chart and discharge instructions (if applicable) and agree that the record reflects my personal performance and is accurate and complete. Braydon Pena MD. September 05, 2017 9:47 AM Bhavesh Zavala Ma 09/05/2017 8:51 AM Signed Was not able to get patient BP, tried to check BP twice and BP GUY read error twice. Referring Provider: SELF [[id number]] Allergies As of Date: 09/05/2017 Noted Allergy Reaction QUININE 01/01/2015 4 - Hives Date Reviewed: 09/05/2017 Reviewed by: Bhavesh Zavala Ma - Fully Assessed Primary Visit Diagnosis:Screening for genitourinary condition [Z13.89] Other Visit Diagnosis:Hematuria, unspecified type [R31.9] Order(s):UA CHEMSTRIP ONLY [SQUA] Order #: [id number] FUTURE UA CHEMSTRIP ONLY [SQUA] Order #: [id number]. #:[id number] URINE CYTOLOGY VOIDED [[id number]] Order #: [id number]. #:[id number] CYSTO.PANENDO [[id number]] Order #: [id number] Prescriptions as of 09/05/2017 Sig: FUROSEMIDE 20 MG TABLET Take 20 mg by mouth once antonette* LORAZEPAM 1 MG TABLET Take 1 mg by mouth daily at b* VARENICLINE 0.5 MG TABLET Take 0.5 mg by mouth twice da* DOCUSATE SODIUM 100 MG CAPSULE Take 100 mg by mouth twice da* CYCLOBENZAPRINE 10 MG TABLET Take 10 mg by mouth every 8 h* METFORMIN 500 MG TABLET Take 500 mg by mouth twice da* INSULIN DETEMIR (U-100) 100 U* Inject subcutaneously daily a* MAGNESIUM HYDROXIDE 400 MG/5 * Take by mouth once daily as n* OXYCODONE 10 MG TABLET Take 5 mg by mouth every 4 ho* ALBUTEROL SULFATE HFA 90 MCG/* Inhale 2 Puffs as instructed * ACETAMINOPHEN 325 MG TABLET Take 650 mg by mouth every 6 * POTASSIUM ORAL Take by mouth. GABAPENTIN 300 MG CAPSULE 600 mg three times daily. SERTRALINE 25 MG TABLET XARELTO 15 MG TABLET 20 mg. ATENOLOL 100 MG TABLET 50 mg twice daily. OMEPRAZOLE 20 MG CAPSULE,BERNABE* LISINOPRIL 10 MG-HYDROCHLOROT* GLUCOSAMINE ORAL Take by mouth. ASPIRIN ORAL Take by mouth. HYDROCHLOROTHIAZIDE 25 MG TAB* TRAMADOL 50 MG TABLET as needed. Medication notes this encounter GLUCOSAMINE ORAL >> Bhavesh Zavala Ma 09/05/2017 8:38 AM >> BHAVESH ZAVALA MA hernan Sep 05, 2017 8:38 AM Patient stated he is no longer taking ASPIRIN ORAL >> Bhavesh Zavala Ma 09/05/2017 8:37 AM >> BHAVESH ZAVALA MA Sep 05, 2017 8:37 AM Patient stated he is no longer taking HYDROCHLOROTHIAZIDE 25 MG TABLET >> Bhavesh Zavala Ma 09/05/2017 8:38 AM >> BHAVESH ZAVALA MA Sep 05, 2017 8:38 AM Patient stated he is no longer taking TRAMADOL 50 MG TABLET >> Bhavesh Zavala Ma 09/05/2017 8:39 AM >> BHAVESH ZAVALA MA Sep 05, 2017 8:39 AM Patient stated he is no longer taking Problem List As Of Date 09/05/2017 Noted Resolved Myopia [H52.10] INVALID FOR* 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 Disposition: Return in about 2 weeks (around 09/19/2017). Follow-up and Disposition History Recorded Encounter Status:Closed by NYA PENA MD on 09/06/17 URINALYSIS Collected: 09/05/2017 Status: F Source: [place] 8:16 AM [facility] REPOSITORY TYPE CODE TESTS RESULT OUT OF REFERENCE UNITS RANGE LAB UCOL Yellow Color Yellow LAB [facility] Clear Clarity Clear LAB UGLUC Negative mg/dL Glucose, Urine Negative LAB UBIL Negative Bilirubin, Urine Negative LAB UKET Negative Ketones, Urine Negative LAB USPG 1.005-1.030 Specific Low [place], Ur 1.003 LAB UHGB Negative Hemoglobin/Blood, Negative Ur LAB UPH 4.5-8.0 pH 5.5 LAB UPROT Negative mg/dL Protein, Urine Negative LAB UUROB Normal Urobilinogen Normal LAB UNITR Negative Nitrites Negative LAB ULKEST Negative Leukest Negative LAB UCOM Comments SEE COMMENT Result Comment: Microscopic not warranted LAB UMCOM Urine SEE Alfredito Comment COMMENT Result Comment: N/A Performed By: #### UA #### [facility] [address] [place], [place] [address] DISCHARGE SUMMARY Observed: 08/29/2017 Status: F Source: [place] 5:04 PM [facility] REPOSITORY [facility] Medical Records Department [address] [place] [address] Discharge Summary 08/29/17 1156 MR#: [id number] Acct: [id number] Name: ADRIAN APONTE Hernan Bynum Rep #: [id number] : 1970 46 From: Kayy Davis MD PCP: London Lou MD Status: DIS IN Y Location: [facility] [id number] Discharge Date and Diagnosis Date of Admission: 08/23/17 Date of Discharge: 08/29/17 - Primary Discharge Diagnosis Acute right distal femoral fracture Intermittent hematuria - Secondary Discharge Diagnosis Chronic Problems (Last Updated 08/23/17 @ 19:01 by Ruben Hilario MD) UTI (urinary tract infection) (Chronic) DM type 2 (diabetes mellitus, type 2) (Chronic) Premature ventricular contraction (Chronic) Tachycardia (Chronic) Dyspnea (Chronic) KHALIF (obstructive sleep apnea) (Chronic) Tobacco dependence in remission (Chronic) Restrictive lung disease (Chronic) Pulmonary HTN (Chronic) Hypertension (Chronic) Obesity (Chronic) GERD (Chronic) VTE (venous thromboembolism) (Chronic) Morbid obesity (Chronic) Pulmonary embolism (Chronic) DVT (deep venous thrombosis) (Chronic) RLE Tear of medial meniscus of left knee (Chronic) Left ventricular hypertrophy (Chronic) Tricuspid regurgitation (Chronic) Lumbosacral spondylosis (Chronic) Degeneration of lumbosacral intervertebral disc (Chronic) Lumbosacral radiculopathy (Chronic) Hospital Course and Treatment Imaging Results: Clinical Impression(s) from Imaging Studies Chest X-Ray 08/23/17 16:28 IMPRESSION: Normal x-ray examination of the chest. Electronically Signed: Andrew Teixeira MD at 18:09 EDT , Service support , Femur X-Ray 08/23/17 16:29 IMPRESSION: Distal femur fracture. Electronically Signed: Andrew Teixeira MD at 17:58 EDT , Service support , Knee X-Ray 08/23/17 16:29 IMPRESSION: Distal femur fracture. Joint effusion. Electronically Signed: Andrew Teixeira MD at 18:02 EDT , Service support , Pelvis X-Ray 08/23/17 16:29 IMPRESSION: No fracture. Right hip replacement. Electronically Signed: Andrew Teixeira MD at 18:13 EDT , Service support , Tibia/Fibula X-Ray 08/23/17 16:29 IMPRESSION: Demineralization of the osseous structures. Electronically Signed: Andrew Teixeira MD at 18:03 EDT , Service support , Lower Extremity CT 08/23/17 18:52 IMPRESSION: Distal femur fracture. Electronically Signed: Andrew Teixeira MD at 19:58 EDT , Service support , Orthopedics, urology Operations: None, - - arthroscopic surgery on the left knee to repair a torn medial meniscus...01/[address] Waqas Rodriguez Procedures: None Summary of Care Provided: 46-year-old super morbidly obese patient multiple comorbidities significant for super morbid obesity, admitted after mechanical fall and found to have acute distal right hip fracture. 1. Acute right distal femoral fracture secondary to mechanical fall, managed conservatively, plan from orthopedics is to follow-up with Dr. Rodriguez in the office in 2 weeks for repeat x-rays, patient was discharged to a residential facility. 2. Hematuria, intermittent, his vitals and blood work remained stable, patient was given an appointment to follow-up with urology in the outpatient in a week. 3. Hypertension, stable, was on atenolol, lisinopril and HCTZ. 4. Type 2 diabetes mellitus, Blood sugar are controlled, on ADA diet, managed on Levemir, insulin sliding scale. 5. History of pulmonary embolism, on Xarelto. 6. Tobacco abuse, on Chantix 7. obstructive sleep apnea, on CPAP at night 8. Super morbid obesity, BMI 56.1, patient may be candidate for bariatric surgery, can be followed up in the outpatient Discharge Diet: Low fat/ Low Cholesterol, 1800 Calorie Control Diet, 2000 mg Sodium Diet Discharge Activity: Return to Normal Activity Home Medications: Medications to take at Discharge Albuterol IH (ProAir) [Proair Hfa] 2 puff INHALATION Q4H PRN PRN #1 inhaler 08/09/17 Atenolol [Tenormin (beta tamar)] 50 mg PO BID #120 tab 08/09/17 Cyclobenzaprine [Flexeril] 10 mg PO TID PRN #30 tab 08/09/17 Furosemide [Lasix] 20 mg PO DAILY #60 tab 08/09/17 Insulin Detemir [Levemir FlexPen] 20 units SC BID #60 insuln.pen 08/09/17 Lisinopril/Hydrochlorothiazide [Zestoretic 10.5 Tablet] 1 tab PO DAILY #60 tab 08/09/17 Omeprazole [Prilosec] 20 mg PO BID #120 cap 08/09/17 Sertraline HCl [Zoloft] 50 mg PO DAILY #60 tab 08/09/17 Gabapentin [Neurontin] 600 mg PO TIDCM 08/23/17 Metformin HCl [Glucophage] 1,000 mg PO BIDCM 08/23/17 Rivaroxaban [Xarelto] 15 mg PO DAILY 08/23/17 Varenicline Tartrate [Chantix] 0.5 mg PO BID 08/23/17 Docusate Sodium [Colace] 100 mg PO BID capsule 08/29/17 Lorazepam [Ativan] 1 mg PO DAILY #5 tab 08/29/17 Oxycodone CR [Oxycontin] 30 mg PO BID 5 Days #10 tab 08/29/17 Oxycodone [Oxyir] 10 mg PO Q4H PRN PRN 4 Days #20 tab 08/29/17 Following Prescrptions Were Given to Patient: Oxycodone [Oxyir] 10 mg PO Q4H PRN PRN 4 Days #20 tab PRN Reason: Moderate Pain (4-5/10) Lorazepam [Ativan] 1 mg PO DAILY #5 tab Oxycodone CR [Oxycontin] 30 mg PO BID 5 Days #10 tab Primary Care Physician: London Lou MD [Primary Care Provider] - Please follow up with your Primary Care Physician in: in 2 weeks Please Follow Up With: Waqas Rodriguez MD When: as scheduled on 09/07/17 Disposition: Home Minutes spent on discharge:: 25 Patient Condition:: Stable Medical Necessity - Tobacco Use Smoking Status: Former smoker Tobacco Use: Non-smoker Meaningful Use Info Meaningful Use Diagnoses (Choose all that apply): None applicable Code Visit Inpatient E AND M: 89405 Disch Hosp 08/29/17 1704 <Electronically signed by Kayy Davis MD> Date Kayy Davis MD Cosigner Signature (if applicable): Date CC: Kayy Davis MD; London Lou MD Signed TRANSFER TO EXTENDED Observed: 08/29/2017 Status: F Source: [facility] 12:00 PM [facility] REPOSITORY [facility] Medical Records Department [address] [place] [address] Transfer to Extended Care MR#: [id number] Acct: [id number] Name: ADRIAN APONTE Jr. Rep #: [id number] : 1970 46 From: Kayy Davis MD PCP: London Lou MD Status: ADM IN ADRIAN APONTE Jr. [id number] (Patient) (Health Ins. Claim No.) (Day of Discharge to Facility) Certification of patient admission REQUIRED AT TIME OF ADMISSION. I CERTIFY THAT POST-HOSPITAL ECF SERVICES ARE REQUIRED TO BE GIVEN ON AN IN-PATIENT BASIS BECAUSE OF THE ABOVE NAMED PATIENT'S NEED FOR ASSISTED CARE ON A CONTINUING BASIS FOR THE CONDITION(S) FOR WHICH HE/SHE WAS RECEIVING IN-PATIENT HOSPITAL SERVICES PRIOR TO HIS/HER TRANSFER TO THE ECF. 08/29/17 1156 <Electronically signed by Kayy Davis MD> Date Kayy Davis MD ADDENDUM by Kayy Davis MD on 08/29/17 at 1200 Code Visit Urology - Dr. Brown's office in 1-2 weeks for intermittent hematuria 08/29/17 1200 <Electronically signed by Kayy Davis MD> Date Kayy Davis MD cc: Roger Brown MD; London Lou MD; Jose M Vazquez MD * Signed - Diet 08/24/17 10:55 Diet: Calorie Controlled Is pt able to select menu?: Yes How many daily calories?: 1800 calorie - Routine Orders/Code Status Routine Lab Work: CBC - in 3 days, BMP - in 3 days - Wound(s) Right Leg Wound Type: femur fx - Therapies Weight Bearing: No knee flexion Extremity Affected:: Right Lower Physical Therapy: Eval and Treat Occupational Therapy: Eval and Treat - Allergies/Procedures Done in Hospital Allergies/Adverse Reactions: Allergies quinine Allergy (Verified 08/23/17 16:17) Hives Procedures: None - Type of Care/Length of Stay Estimated LOS: Convalescent Care Less Than 30 days Type of Care Needed: Skilled Rehab Potential: Good Prognosis: Good - Additional Orders/Day of Discharge Additional Orders: Pt has appointment w/Dr. Rodriguez on 09/07 at 9am. Day of Discharge: 08/29/17 - Dietary and Speech Recommendations Dietitian Recommendations/Changes: Rec diet change to 2000 leann Cardiac to better meet pt est nutritional needs - Follow Up Care Primary Care Physician: London Lou MD [Primary Care Provider] - Please follow up with your Primary Care Physician in: in 2 weeks Please Follow Up With: Waqas Rodriguez MD When: as scheduled on 09/07/17 08/29/17 1156 <Electronically signed by Kayy Davis MD> Date Kayy Davis MD CC: Roger Brown MD; London Lou MD; Jose M Vazquez MD Signed BEDSIDE GLUCOSE Collected: 08/29/2017 Status: F Source: [place] 10:39 AM [facility] REPOSITORY TYPE CODE TESTS RESULT OUT OF RANGE REFERENCE UNITS LAB L501.080 70-110 mg/dL Normal BEDSIDE GLU 105 Result Comment: MANAGEMENT OF PATIENT CARE PER NURSING PROTOCOL Performed By: #### L501.080 #### [facility] Point [place] [address] BEDSIDE GLUCOSE Collected: 08/29/2017 Status: F Source: [place] 6:44 AM [facility] REPOSITORY TYPE CODE TESTS RESULT OUT OF RANGE REFERENCE UNITS LAB L501.080 70-110 mg/dL Normal BEDSIDE GLU 95 Result Comment: MANAGEMENT OF PATIENT CARE PER NURSING PROTOCOL Performed By: #### L501.080 #### [facility] Point of Care [address] [place] [address] BEDSIDE GLUCOSE Collected: 08/28/2017 Status: F Source: [place] 9:44 PM [facility] REPOSITORY TYPE CODE TESTS RESULT OUT OF RANGE REFERENCE UNITS LAB L501.080 70-110 mg/dL Normal BEDSIDE GLU 96 Result Comment: MANAGEMENT OF PATIENT CARE PER NURSING PROTOCOL Performed By: #### L501.080 #### [facility] Point of Care [address] [place] [address] BEDSIDE GLUCOSE Collected: 08/28/2017 Status: F Source: [place] 5:02 PM [facility] REPOSITORY TYPE CODE TESTS RESULT OUT OF RANGE REFERENCE UNITS LAB L501.080 70-110 mg/dL Normal BEDSIDE GLU 88 Result Comment: MANAGEMENT OF PATIENT CARE PER NURSING PROTOCOL Performed By: #### L501.080 #### [facility] Point of Care [address] [facility] [place] [address] 12 LEAD ELECTROCARDIOGRAM Observed: 08/28/2017 Status: F Source: [place] 1:51 PM [facility] REPOSITORY [facility] Cardiovascular Services [address] [place] [address] 12 Lead EKG 08/23/17 1637 MR#: [id number] Acct: [id number] Name: FAYADRIAN Hernan Bynum Rep #: [id number] : 1970 46 From: Shakeel Davis MD Attending Dr: Kayy Davis MD Status: ADM IN Ordering Dr: Aaron Marie MD Date: 08/23/17 Location: [facility] Sex: M C Admitted: 08/23/17 Test Reason : FALL Blood Pressure : / mmHG Vent. Rate : 078 BPM Atrial Rate : 078 BPM P-R Int : 156 ms QRS Dur : 078 ms QT Int : 378 ms P-R-T Axes : 052 030 026 degrees QTc Int : 430 ms Normal sinus rhythm Normal ECG Confirmed by SHAKEEL DAVIS ([id number]), editor sound MANAV VAZQUEZ ([id number]) on 08/28/2017 1:50:44 PM Referred By: LILIA Confirmed By:SHAKEEL DAVIS 08/28/17 1350 Date Shakeel Davis MD CC: Aaron Marie; London Lou MD Signed BEDSIDE GLUCOSE Collected: 08/28/2017 Status: F Source: [place] 12:36 PM [facility] REPOSITORY TYPE CODE TESTS RESULT OUT OF RANGE REFERENCE UNITS LAB L501.080 70-110 mg/dL Normal BEDSIDE GLU 90 Result Comment: MANAGEMENT OF PATIENT CARE PER NURSING PROTOCOL Performed By: #### L501.080 #### [facility] Point of Care [address] [place], [place] [address] BEDSIDE GLUCOSE Collected: 08/28/2017 Status: F Source: [place] 6:58 AM [facility] REPOSITORY TYPE CODE TESTS RESULT OUT OF RANGE REFERENCE UNITS LAB L501.080 70-110 mg/dL Normal BEDSIDE GLU 110 Result Comment: MANAGEMENT OF PATIENT CARE PER NURSING PROTOCOL Performed By: #### L501.080 #### [facility] Point of Care [address] [place], [place] [id number] VENOUS DUPLEX LOWER Observed: 08/28/2017 Status: F Source: [place] EXTREMITY 5:33 AM [facility] REPOSITORY [facility] Cardiovascular Services [address] [place] [address] Venous Duplex US, Unilateral 08/27/17 1232 MR#: [id number] Acct: [id number] Name: ADRIAN APONTE Jr. Rep #: [id number] : 1970 46 From: London Rivas MD Attending Dr: Dwayne NGUYEN,[facility] Status: ADM IN Ordering Dr: Nargis Grissom Date: 08/27/17 Location: [facility] Sex: M C Admitted: 08/23/17 Reason For Study: RLE PAIN RIGHT GSV is normal. CFV is compressible, spontaneous, phasic, competent and demonstrates normal augmentation. FV is compressible, spontaneous, phasic, competent and demonstrates normal augmentation. PTV is compressible. RT PerV is compressible. PT unable to tolerate compression in knee area. POP V is spontaneous, phasic, competent and demonstrates normal augmentation. Procedure Exam performed portable in patient room. The study was technically difficult. Due to obesity 401#, PT instructed not to bend knee due to distal femur fracture. A preliminary report was called and/or faxed to [facility] @ 1:00 pm. Interpretation Summary There is no evidence of right lower extremity deep vein thrombosis. Right greater saphenous vein appears patent and compressible segmentally. Limited examination secondary to pain and body habitus Ordering Physician: Nargis Grissom Referring Physician: London Lou Performed By: Missy Villarreal, HANNAH, RVT 08/28/17 0533 Date London Rivas MD CC: Nargis Grissom; London Lou MD Date Dictated: 08/27/17 1232 Date Transcribed: 08/28/17532 Technical Support Director: Signed BEDSIDE GLUCOSE Collected: 08/27/2017 Status: F Source: [place] 9:52 PM [facility] REPOSITORY TYPE CODE TESTS RESULT OUT OF RANGE REFERENCE UNITS LAB L501.080 70-110 mg/dL Normal BEDSIDE GLU 99 Result Comment: MANAGEMENT OF PATIENT CARE PER NURSING PROTOCOL Performed By: #### L501.080 #### [facility] Point of Care [address] [place], [place] [address] BEDSIDE GLUCOSE Collected: 08/27/2017 Status: F Source: [place] 4:24 PM [facility] REPOSITORY TYPE CODE TESTS RESULT OUT OF RANGE REFERENCE UNITS LAB L501.080 70-110 mg/dL Normal BEDSIDE GLU 102 Result Comment: MANAGEMENT OF PATIENT CARE PER NURSING PROTOCOL Performed By: #### L501.080 #### [facility] Point of Care [address] [place] [address] BEDSIDE GLUCOSE Collected: 08/27/2017 Status: F Source: [place] 12:18 PM [facility] REPOSITORY TYPE CODE TESTS RESULT OUT OF RANGE REFERENCE UNITS LAB L501.080 70-110 mg/dL Normal BEDSIDE GLU 107 Result Comment: MANAGEMENT OF PATIENT CARE PER NURSING PROTOCOL Performed By: #### L501.080 #### [facility] Point of Care [address] [place] [address] BEDSIDE GLUCOSE Collected: 08/27/2017 Status: F Source: [place] 6:33 AM [facility] REPOSITORY TYPE CODE TESTS RESULT OUT OF REFERENCE UNITS RANGE LAB L501.080 70-110 mg/dL High BEDSIDE GLU 117 Result Comment: MANAGEMENT OF PATIENT CARE PER NURSING PROTOCOL Performed By: #### L501.080 #### [facility] Point of Care [address] [place] [address] BEDSIDE GLUCOSE Collected: 08/26/2017 Status: F Source: [place] 10:32 PM [facility] REPOSITORY TYPE CODE TESTS RESULT OUT OF RANGE REFERENCE UNITS LAB L501.080 70-110 mg/dL Normal BEDSIDE GLU 104 Result Comment: MANAGEMENT OF PATIENT CARE PER NURSING PROTOCOL Performed By: #### L501.080 #### [facility] Point of Care [address] [place] [address] BEDSIDE GLUCOSE Collected: 08/26/2017 Status: F Source: [place] 5:26 PM [facility] REPOSITORY TYPE CODE TESTS RESULT OUT OF REFERENCE UNITS RANGE LAB L501.080 70-110 mg/dL High BEDSIDE GLU 121 Result Comment: MANAGEMENT OF PATIENT CARE PER NURSING PROTOCOL Performed By: #### L501.080 #### [facility] Point of Care [address] [place] [address] BEDSIDE GLUCOSE Collected: 08/26/2017 Status: F Source: [place] 11:59 AM [facility] REPOSITORY TYPE CODE TESTS RESULT OUT OF REFERENCE UNITS RANGE LAB L501.080 70-110 mg/dL High BEDSIDE GLU 145 Result Comment: MANAGEMENT OF PATIENT CARE PER NURSING PROTOCOL Performed By: #### L501.080 #### [facility] Point of Care [address] [place] [address] BEDSIDE GLUCOSE Collected: 08/26/2017 Status: F Source: [place] 6:44 AM [facility] REPOSITORY TYPE CODE TESTS RESULT OUT OF REFERENCE UNITS RANGE LAB L501.080 70-110 mg/dL High BEDSIDE GLU 114 Result Comment: MANAGEMENT OF PATIENT CARE PER NURSING PROTOCOL Performed By: #### L501.080 #### [facility] Point of Care [address] [place], [place] [address] BEDSIDE GLUCOSE Collected: 08/25/2017 Status: F Source: [place] 10:26 PM [facility] REPOSITORY TYPE CODE TESTS RESULT OUT OF RANGE REFERENCE UNITS LAB L501.080 70-110 mg/dL Normal BEDSIDE GLU 100 Result Comment: MANAGEMENT OF PATIENT CARE PER NURSING PROTOCOL Performed By: #### L501.080 #### [facility] Point of Care [address] [place] [place] [address] URINALYSIS, COMPLETE Collected: 08/25/2017 Status: F Source: [place] 7:15 PM [facility] REPOSITORY Order Comment: Has pt arrived? Y How was Urine Obtained? CLEAN CATCH TYPE CODE TESTS RESULT OUT OF RANGE REFERENCE UNITS LAB L400.3000 Yellow COLOR Normal Yellow LAB L400.3050 Clear Normal CLARITY Sl. Cloudy LAB L400.3200 Normal mg/dl Normal GLUCOSE, UR Normal LAB L400.3300 Negative mg/dL Normal BILIRUBIN URINE Negative LAB L400.3400 Negative mg/dl Normal KETONE UR Negative LAB L400.3465 1.002-1.030 Normal SP.GR. DIPSTX 1.015 LAB L400.3550 5.0 - 8.0 pH UR Normal 6.0 LAB L400.3600 Negative mg/dl PROT Normal DIPSTX Negative LAB L400.3700 Normal mg/dl Normal UROBILI Normal LAB L400.3750 Negative Normal NITRITE UR Negative LAB L400.3780 Negative /ul High OCCULT BLOOD-UR 250 LAB L400.3800 Negative /ul High LEUK 25 ESTERASE LAB L400.4050 0-5 /hpf WBC Normal 0-5 SEEN LAB L400.4100 0-5 /hpf Normal RBC-UA 0-5 SEEN LAB L400.4150 0-5 /hpf SQUAM 0 Normal EPI SEEN LAB L400.4300 None Seen /hpf 0 Normal BACTERIA SEEN LAB L400.4350 <or=2+ /hpf 0 Normal MUCUS, URINE SEEN Performed By: #### L400.0001 #### [facility] [address] [place], [address] BEDSIDE GLUCOSE Collected: 08/25/2017 Status: F Source: [place] 4:58 PM [facility] REPOSITORY TYPE CODE TESTS RESULT OUT OF RANGE REFERENCE UNITS LAB L501.080 70-110 mg/dL Normal BEDSIDE GLU 102 Result Comment: MANAGEMENT OF PATIENT CARE PER NURSING PROTOCOL Performed By: #### L501.080 #### [facility] Point of Care [address] [place] [address] BEDSIDE GLUCOSE Collected: 08/25/2017 Status: F Source: [place] 11:43 AM [facility] REPOSITORY TYPE CODE TESTS RESULT OUT OF RANGE REFERENCE UNITS LAB L501.080 70-110 mg/dL Normal BEDSIDE GLU 99 Result Comment: MANAGEMENT OF PATIENT CARE PER NURSING PROTOCOL Performed By: #### L501.080 #### [facility] Point of Care [address] [place] [address] BEDSIDE GLUCOSE Collected: 08/25/2017 Status: F Source: [place] 6:33 AM [facility] REPOSITORY TYPE CODE TESTS RESULT OUT OF REFERENCE UNITS RANGE LAB L501.080 70-110 mg/dL High BEDSIDE GLU 113 Result Comment: MANAGEMENT OF PATIENT CARE PER NURSING PROTOCOL Performed By: #### L501.080 #### [facility] Point of Care [address] [place] [address] CBC W/DIFF, AUTOMATED Collected: 08/25/2017 Status: F Source: [place] 5:37 AM [facility] REPOSITORY TYPE CODE TESTS RESULT OUT OF RANGE REFERENCE UNITS LAB L100.1000 4.4-11.0 K/mm3 Normal WBC 8.4 LAB L100.1200 4.6-6.2 M/mm3 Low RBC 4.28 LAB L100.1300 13.0-16.5 g/dl Normal HGB 13.8 LAB L100.1400 40-54 % Normal HCT 41.2 LAB L100.1500 80-94 fL High MCV 96.3 LAB L100.1600 27.0-32.0 pg High MCH 32.2 LAB L100.1700 32-36 g/gl Normal MCHC 33.5 LAB L100.1810 11.6-14.6 % Normal RDW CV 13.4 LAB L100.1820 35.1-43.9 fl High RDW SD 46.2 LAB L100.1900 150-450 K/mm3 Normal PLT 246 LAB L100.2000 6.2-12.0 fl Normal MPV 10.2 LAB L100.2100 47-70 % Normal NEUT% 51.5 LAB L100.2200 19-41 % Normal LY% 34.5 LAB L100.2300 0-10 % High MONO% 11.6 LAB L100.2400 0-5 % Normal EO% 1.7 LAB L100.2500 0-1 % Normal BASO% 0.5 LAB L100.2550 0.0-0.9 % Normal IM GRAN % 0.200 Result Comment: IG% - Immature Granulocytes (promyelocytes, myelocytes and metamyelocytes) > 1% indicates that a LEFT SHIFT is Present. LAB L100.2620 2.0-7.7 X10 3/uL Normal Absolute Neut 4.3 LAB L100.2720 0.83-4.51 X10 3/ul Normal Absolute Lymph 2.91 Performed By: #### L100.0100 #### [facility] [address] [place], [address] BASIC METABOLIC Collected: 08/25/2017 Status: F Source: [place] PROFILE ([facility]) 5:37 AM [facility] REPOSITORY TYPE CODE TESTS RESULT OUT OF RANGE REFERENCE UNITS LAB L501.0100 74-106 mg/dL Normal GLU 95 Result Comment: Please note revised GLUCOSE reference range effective 2017. LAB L501.1000 7-18 mg/dL Normal BUN 14 LAB L501.1100 0.70-1.30 mg/dL Normal CREAT,SERUM 1.08 Result Comment: The validity of the calculated GFR AND GFRAA in patients over 70 years has not been determined. Clinical correlation is essential. LAB L501.1110 >60 mL/min Normal EST GFR 78 Result Comment: Non- GFR Calc LAB L501.1115 >60 mL/min Normal EST GFR - AA 94 Result Comment: GFR Calc LAB L501.1255 ml/min Normal Estimated CRCL 90.06 LAB L501.1300 10-20 RATIO Normal BUN/CRE 13.0 LAB L501.2200 8.5-10 mg/dL Low .1 CA 8.3 LAB L501.5300 136-14 mmol/L Normal 5 NA 136 LAB L501.5600 3.5-5. mmol/L Normal 1 K 3.7 LAB L501.5900 98-107 mmol/L Normal CL 102 LAB L501.6100 21.0-3 mmol/L Normal 2.0 CO2 27.0 LAB L501.6200 5-15 Normal GAP 7 Performed By: #### L500.2500 #### [facility] [address] [place], [address] BEDSIDE GLUCOSE Collected: 08/24/2017 Status: F Source: [place] 10:27 PM [facility] REPOSITORY TYPE CODE TESTS RESULT OUT OF RANGE REFERENCE UNITS LAB L501.080 70-110 mg/dL Normal BEDSIDE GLU 104 Result Comment: MANAGEMENT OF PATIENT CARE PER NURSING PROTOCOL Performed By: #### L501.080 #### [facility] Point of Care [address] [place] [address] CONSULTATION Observed: 08/24/2017 Status: F Source: [place] 5:51 PM [facility] REPOSITORY [facility] Medical Records Department [address] [place] [address] Consultation 08/24/17 1745 MR#: [id number] Acct: [id number] Name: ADRIAN APONTE Jr. Rep #: [id number] : 1970 46 From: Jose M Vazquez MD PCP: London Lou MD Status: ADM IN Location: [address] Reason for Consult Date of Consultation: 08/24/17 History of Present Illness: The patient is a 46 year old male with multiple medical problems that reportedly fell in an [employer] store in [place] yesterday. His foot slipped. He injured his right knee. He was not able to walk. Knee pain and swelling. He has had previous right hip replacement surgery. He does not feel he altered that. He complains of right knee pain and swelling that is significant. Denies numbness or tingling that is new. Does have diabetes. Both feet feel cool to him. [] Past Medical History Past Medical History (Chronic Problems): Chronic Problems (Last Updated 08/23/17 @ 19:01 by Ruben Hilario MD) UTI (urinary tract infection) (Chronic) DM type 2 (diabetes mellitus, type 2) (Chronic) Premature ventricular contraction (Chronic) Tachycardia (Chronic) Dyspnea (Chronic) KHALIF (obstructive sleep apnea) (Chronic) Tobacco dependence in remission (Chronic) Restrictive lung disease (Chronic) Pulmonary HTN (Chronic) Hypertension (Chronic) Obesity (Chronic) GERD (Chronic) VTE (venous thromboembolism) (Chronic) Morbid obesity (Chronic) Pulmonary embolism (Chronic) DVT (deep venous thrombosis) (Chronic) RLE Tear of medial meniscus of left knee (Chronic) Left ventricular hypertrophy (Chronic) Tricuspid regurgitation (Chronic) Lumbosacral spondylosis (Chronic) Degeneration of lumbosacral intervertebral disc (Chronic) Lumbosacral radiculopathy (Chronic) Allergies quinine Allergy (Verified 08/23/17 16:17) Hives Home Medications: Ambulatory Orders Medication Instructions Recorded Potassium 99 mg PO DAILY 08/07/17 Albuterol IH (ProAir) [Proair Hfa] 2 puff INHALATION Q4H PRN PRN #1 08/09/17 Surgical History: appendectomy, total hip arthroplasty, total knee arthroplasty, - - Appendectomy, chest surgery for removal of organized clot under rib cage, heart catheterization, left foot reconstructive surgery, left knee arthroscopy Psychiatric History: No pertinent psych hx Lives: With Family Smoking Status: Former smoker Alcohol: None Drugs: None - *Family History Maternal History Items: Heart Disease Paternal History Items: Heart Disease Objective: Right knee is in a knee immobilizer. Right knee has swelling consistent with his injury. Knee was not stressed. Pain on palpation of medial knee. No calf pain. Good ability to plantarflex and dorsiflex toes and ankles bilaterally. Normal sensation equal of both feet. Both feet feel slightly cool but equally so. Pulses are intact to both feet. No pain at the thigh. No pain at the right hip. No right hip deformity noted. Knee immobilizer was on, opened for exam, reapplied. No pain at the left hip knee or leg. X-rays reviewed right knee showing a medial femoral condyle fracture not significantly displaced. CT right knee reviewed again showing a medial femoral condyle shear type fracture in reasonable position. Notes from hospitalist reviewed. Vital signs and laboratory work reviewed. - Physical Exam Vital Signs Temp Pulse Resp BP Pulse Ox 98.7 F 73 20 H 106/58 L 94 08/24/17 14:25 08/24/17 17:11 08/24/17 14:25 08/24/17 14:25 08/24/17 14:25 Oxygen Delivery Method Room Air Weight: 182.5 kg Body Mass Index (BMI) 56.1 Intake and Output for Last 24 Hours Intake Total 1962 / 1962 Output Total 4300 / 4300 Balance -2337 / -2337 Laboratory Tests Past 24 Hrs WBC 9.9 RBC 4.54 L Hgb 14.4 Hct 43.6 WBC RBC Hgb Hct MCV MCH MCHC RDW RDW Differential Plt Count POC Glucose POC Glucose 78 124 H 108 POC Glucose 121 H Assessment/Plan Right distal femoral fracture in reasonable position. Continue knee immobilizer. Continue nonweightbearing right knee. Ice if needed. Possibility of fracture displacement discussed. If there is significant fracture displacement or nonunion, surgery could be considered. Patient known by Dr. Rodriguez. Dr. Rodriguez has reviewed his films. Dr. Rodriguez would like to see him in the office in 2 weeks. Xrays Will be obtained then. Continue with medical management otherwise. Do not recommend knee flexion or weightbearing at this point. Patient understands and agrees with our treatment plan. Multiple medical problems, management per hospitalist service 08/24/17 2368 <Electronically signed by Jose M Vazquez MD> Date Jose M Vazquez MD Cosigner Signature (if applicable): Date CC: London Lou MD; Jose M Vazquez MD Signed BEDSIDE GLUCOSE Collected: 08/24/2017 Status: F Source: [place] 4:54 PM [facility] REPOSITORY TYPE CODE TESTS RESULT OUT OF RANGE REFERENCE UNITS LAB L501.080 70-110 mg/dL Normal BEDSIDE GLU 78 Result Comment: MANAGEMENT OF PATIENT CARE PER NURSING PROTOCOL Performed By: #### L501.080 #### [facility] Point of Care [address] [place], [place] [address] PARTIAL THROMBOPLAST Collected: 08/24/2017 Status: F Source: [place] TIME 2:15 PM [facility] REPOSITORY TYPE CODE TESTS RESULT OUT OF REFERENCE UNITS RANGE LAB L300.4310 24.1-36.2 Seconds High PTT 36.5 Performed By: #### L300.4310 #### [facility] [address] [place], [address] BEDSIDE GLUCOSE Collected: 08/24/2017 Status: F Source: [place] 11:56 AM [facility] REPOSITORY TYPE CODE TESTS RESULT OUT OF REFERENCE UNITS RANGE LAB L501.080 70-110 mg/dL High BEDSIDE GLU 124 Result Comment: MANAGEMENT OF PATIENT CARE PER NURSING PROTOCOL Performed By: #### L501.080 #### [facility] Point of Care [address] [place] [address] PROTHROMBIN TIME W/INR Collected: 08/24/2017 Status: F Source: [place] 7:50 AM [facility] REPOSITORY TYPE CODE TESTS RESULT OUT OF RANGE REFERENCE UNITS LAB L300.4150 11.7-14.9 SECONDS High PROTIME 15.6 LAB L300.4200 Normal INR 1.2 Performed By: #### L300.3900, L300.4310 #### [facility] [address] [place], [address] PARTIAL THROMBOPLAST Collected: 08/24/2017 Status: F Source: [place] TIME 7:50 AM [facility] REPOSITORY TYPE CODE TESTS RESULT OUT OF RANGE REFERENCE UNITS LAB L300.4310 24.1-36.2 Seconds Normal PTT 35.2 Performed By: #### L300.3900, L300.4310 #### [facility] [address] [place], [place], [address] CBC W/DIFF, AUTOMATED Collected: 08/24/2017 Status: F Source: [place] 7:50 AM [facility] REPOSITORY TYPE CODE TESTS RESULT OUT OF RANGE REFERENCE UNITS LAB L100.1000 4.4-11.0 K/mm3 Normal WBC 9.9 LAB L100.1200 4.6-6.2 M/mm3 Low RBC 4.54 LAB L100.1300 13.0-16.5 g/dl Normal HGB 14.4 LAB L100.1400 40-54 % Normal HCT 43.6 LAB L100.1500 80-94 fL High MCV 96.0 LAB L100.1600 27.0-32.0 pg Normal MCH 31.7 LAB L100.1700 32-36 g/gl Normal MCHC 33.0 LAB L100.1810 11.6-14.6 % Normal RDW CV 13.6 LAB L100.1820 35.1-43.9 fl High RDW SD 46.6 LAB L100.1900 150-450 K/mm3 Normal PLT 304 LAB L100.2000 6.2-12.0 fl Normal MPV 10.4 LAB L100.2100 47-70 % Normal NEUT% 54.1 LAB L100.2200 19-41 % Normal LY% 30.8 LAB L100.2300 0-10 % High MONO% 12.0 LAB L100.2400 0-5 % Normal EO% 1.9 LAB L100.2500 0-1 % Normal BASO% 0.9 LAB L100.2550 0.0-0.9 % Normal IM GRAN % 0.300 Result Comment: IG% - Immature Granulocytes (promyelocytes, myelocytes and metamyelocytes) > 1% indicates that a LEFT SHIFT is Present. LAB L100.2620 2.0-7.7 X10 3/uL Normal Absolute Neut 5.4 LAB L100.2720 0.83-4.51 X10 3/ul Normal Absolute Lymph 3.06 Performed By: #### L100.0100 #### [facility] [address] [place], [place], [address] BEDSIDE GLUCOSE Collected: 08/24/2017 Status: F Source: [place] 6:28 AM [facility] REPOSITORY TYPE CODE TESTS RESULT OUT OF RANGE REFERENCE UNITS LAB L501.080 70-110 mg/dL Normal BEDSIDE GLU 108 Result Comment: MANAGEMENT OF PATIENT CARE PER NURSING PROTOCOL Performed By: #### L501.080 #### [facility] Point of Care [address] [place] [address] LIVER PROFILE Collected: 08/24/2017 Status: F Source: [place] 6:13 AM [facility] REPOSITORY TYPE CODE TESTS RESULT OUT OF RANGE REFERENCE UNITS LAB L501.1500 6.4-8.2 g/dL Normal T PROT 7.4 LAB L501.1800 3.2-5.0 g/dL Normal ALB 3.2 LAB L501.1950 2.2-4.2 g/dL Normal GLOB 4.2 LAB L501.4100 15-37 U/L High AST 83 LAB L501.4305 45-117 U/L Normal ALK P 68 LAB L501.4405 16-61 U/L High ALT 72 Result Comment: Please note revised ALT reference range effective 2017. LAB L501.4600 0.20-1.00 mg/dL Normal T BILI 0.60 LAB L501.4700 0.00-0.30 mg/dL Normal D BILI 0.14 Performed By: #### L500.3400 #### [facility] [address] [facility] [place], [address] HEMOGLOBIN A1C Collected: 08/24/2017 Status: F Source: [place] 6:13 AM [facility] REPOSITORY TYPE CODE TESTS RESULT OUT OF RANGE REFERENCE UNITS LAB L501.9985 4.2-6.3 % High HGB A1C 8.0 Performed By: #### L501.9985 #### [facility] [address] [place], [address] EMERGENCY DEPARTMENT Observed: 08/24/2017 Status: F Source: [place] SUMMARY 2:31 AM [facility] REPOSITORY [facility] Medical Records Department [facility] [place] [address] Emergency Department Summary 08/24/17 0226 MR#: [id number] Acct: [id number] Name: ADRIAN APONTE Jr. Rep #: [id number] : 1970 46 From: Aaron Marie MD PCP: London Lou MD Status: ADM IN - ER Visit Summary Date of Service: 08/24/17 Chief Complaint: Right leg injury History of Present Illness: The patient is a 46 M presenting for evaluation secondary to right leg injury. Patient states he was walking in the grocery store and suffered a slip trip and fall where he had a significant amount of pain in his right knee and was unable to move. Denies hitting his head or loss of consciousness. Denies any numbness or weakness. Patient has an underlying history of pulmonary embolism and is on anticoagulation for this. Review of systems otherwise negative. Physical Examination: Primary survey: Airway is patent, breath sounds equal bilateral, central peripheral pulses 2+ and symmetric, GCS 15 out of 15. Vitals within normal limits. Secondary survey: General: Well-nourished well-developed morbidly obese, visibly in distress secondary to pain Head: Normocephalic atraumatic Eyes: PERRLA, EOMI ENT: TMs clear no hemotympanum no drainage Neck: Nontender full range of motion, no step-offs noted Heart: Regular rate and rhythm no murmurs Lungs: Respirations nondistressed, lung sounds clear to auscultation bilaterally, chest nontender, normal chest excursion bilaterally Abdomen: Soft nontender nondistended normal bowel sounds no palpable abdominal masses Back: Nontender no step-offs noted Extremities: Right lower extremity exam shows significant amount of swelling over the patient's distal femur and knee with completely limited range of motion secondary to severe pain. Pain with touching this area. Decreased sensation distally secondary to neuropathy which is unchanged. 2+ PT pulses that are bilaterally symmetric Skin: Normal color no trauma Neuro: Alert and oriented 4, GCS 15 out of 15, no lateralizing neurological deficits. Test Results: Hip x-ray negative, femur x-ray shows a nondisplaced medial femoral condyle fracture, tib-fib x-rays negative, chest x-ray negative. EKG shows sinus rhythm of [address] segments normal T waves. CBC chemistry coagulation studies unremarkable Emergency Department Course and Treatment: Patient presented secondary to mechanical fall. Primary and secondary surveys are noted as above. Patient does not appear to have any sort of neurovascular compromise, so he was taken to radiology after he was administered morphine and Zofran. X-rays demonstrated nondisplaced fracture. Discussed patient's case with Dr. Vazquez who agrees to see the patient in consultation. Concern for the development of a compartment syndrome in this patient given his long bone fracture and anticoagulation status. Patient was placed in a knee immobilizer and his leg was elevated and he will be admitted to the hospitalist. Disposition: Admission Impression: 1. Closed the medial femoral condyle fracture 2. Coagulopathy This note was generated with [employer] dictation software. It may contain incorrect words, spelling, and punctuation that were not noted in review of the chart prior to signing ED Disposition - Plan for ED Patient: Disposition: Acute Care [facility] Chief Complaint: Lower Extremity Injury What to do if you have Problems For any increased pain, shortness of breath, bleeding, nausea or vomiting, chest pain, or any unexpected problems, contact your Primary Care Provider. Call [facility] ([phone]) or report to the closest Emergency Room. Call 911 if necessary. 08/24/17 0231 <Electronically signed by Aaron Marie MD> Date Aaron Marie MD Cosigner Signature (If Indicated): Date CC: London Lou MD BEDSIDE GLUCOSE Collected: 08/23/2017 Status: F Source: [place] 8:49 PM [facility] REPOSITORY TYPE CODE TESTS RESULT OUT OF REFERENCE UNITS RANGE LAB L501.080 70-110 mg/dL High BEDSIDE GLU 121 Result Comment: MANAGEMENT OF PATIENT CARE PER NURSING PROTOCOL Performed By: #### L501.080 #### [facility] Point of Care [address] [place] [address] HISTORY AND PHYSICAL Observed: 08/23/2017 Status: F Source: [place] EXAM 7:19 PM [facility] REPOSITORY [facility] Medical Records Department [address] [place] [address] History and Physical 08/23/17 1901 MR#: [id number] Acct: [id number] Name: ADRIAN APONTE Jr. Rep #: [id number] : 1970 46 From: Ruben Hilario MD PCP: London Lou MD Status: ADM IN Y Location: [place] [address] Problem List (1) DM type 2 (diabetes mellitus, type 2) Status: Chronic (2) KHALIF (obstructive sleep apnea) Status: Chronic (3) Pulmonary HTN Status: Chronic (4) Hypertension Status: Chronic (5) GERD Status: Chronic (6) Morbid obesity Status: Chronic (7) Pulmonary embolism Status: Chronic (8) Lumbosacral spondylosis Status: Chronic History of Present Illness Date of Admission: 08/23/17 Chief Complaint: Fall, right knee pain. The patient is a 46 year old M with multiple medical comorbidities as mentioned above presented to the emergency room because of fall and right knee pain. This afternoon, patient was shopping, pushing his cart and he was trying to avoid another patient coming from the other way and he fell on his right side hurting his right knee. Immediately, he started having severe right knee pain, sharp pain, 10 out of 10 in severity, screaming, aggravated by even slight movement and without relieving factors. He denied any symptoms preceding the event such as chest pain, shortness of breath, dizziness or lightheadedness. Recent complaint of hematuria that has been going on for few weeks. He did mention that today morning, he had blood clots in his urine. At this time, he urinated twice in the emergency room and his urine looks clean. In the emergency room, his vital signs are stable. His routine blood work was unremarkable. X-ray of the right femur revealed distal femur fracture. Chest x-ray showed no acute findings. EKG revealed normal sinus rhythm, normal IA interval, normal QRS and no acute ischemic changes. X-ray of the pelvis revealed no acute fractures or dislocations. X-ray of the right tibia and fibula showed no acute fractures or dislocations. He is being admitted for acute traumatic right distal femur fracture due to mechanical fall. Past Medical History Past Medical History (Chronic Problems): Chronic Problems (Last Updated 08/23/17 @ 19:01 by Ruben Hilario MD) UTI (urinary tract infection) (Chronic) DM type 2 (diabetes mellitus, type 2) (Chronic) Premature ventricular contraction (Chronic) Tachycardia (Chronic) Dyspnea (Chronic) KHALIF (obstructive sleep apnea) (Chronic) Tobacco dependence in remission (Chronic) Restrictive lung disease (Chronic) Pulmonary HTN (Chronic) Hypertension (Chronic) Obesity (Chronic) GERD (Chronic) VTE (venous thromboembolism) (Chronic) Morbid obesity (Chronic) Pulmonary embolism (Chronic) DVT (deep venous thrombosis) (Chronic) RLE Tear of medial meniscus of left knee (Chronic) Left ventricular hypertrophy (Chronic) Tricuspid regurgitation (Chronic) Lumbosacral spondylosis (Chronic) Degeneration of lumbosacral intervertebral disc (Chronic) Lumbosacral radiculopathy (Chronic) Allergies quinine Allergy (Verified 08/23/17 16:17) Hives Home Medications: Ambulatory Orders Medication Instructions Recorded Surgical History: appendectomy, total knee arthroplasty, - - Appendectomy, chest surgery for removal of organized clot under rib cage, heart catheterization Psychiatric History: No pertinent psych hx Lives: With Family Smoking Status: Current every day smoker Alcohol: None Drugs: None - *Family History Maternal History Items: Heart Disease Paternal History Items: Heart Disease Review of Systems Constitutional: Denies: Anorexia, Chills, Fever, Weakness Eyes: Denies: Blurred vision, Double vision, Drainage, Redness HEENT: Denies: Difficulty Hearing, Dysphasia, Ear Pain, Eye Pain, Nasal Congestion, Sore Throat Cardiovascular: Denies: Chest Pain, Chest Pressure, Chest Tightness, Edema, Heaviness, Light Headedness, Orthopnea, Syncope Respiratory: Denies: Cough, Pleuritic Pain, Shortness of Breath, Sputum production, Wheezing Gastrointestinal: Denies: Abdominal Pain, Constipation, Diarrhea, Nausea, Vomiting Genitourinary: Reports: Hematuria. Denies: Dysuria, Frequency Musculoskeletal: Reports: Joint Pain. Denies: Arm Pain, Back Pain, Foot Pain Skin: Denies: Dryness, Rash Neurological: Denies: Balance problems, Double vision, Change in Speech, Slurred speech, Confusion, Focal weakness, Headaches, Incoordination, Numbness Psychiatric: Denies: Anxiety, Depression Endocrine: Denies: Change in Body Habitus, Polydipsia VTE Information - Inpt Only VTE Present on Admission: No VTE Mechan Device Prophylaxis: None VTE Pharm Prophylaxis ordered?: No - Physical Exam General: Alert, Oriented x3, Cooperative, - - He is in severe pain. HEENT: Atraumatic, PERRLA, EOMI Oral: Moist Mucosa, No Gingival or Mucosal Lesions/ Ulcerations Neck: Supple, No JVD, Negative Carotid Bruits, Trachea Midline, Thyroid Normal Size and Texture Lungs: Clear to auscultation, No rhonchi, No wheeze, No rales, Diminished Cardiovascular: Regular rate, Regular Rhythm, Normal S1, Normal S2, PMI Normal Abdomen: Bowel Sounds Present, Soft, Non Tender, Non-Distended, No Hepato-splenomegaly, Obese Extremities: No clubbing, No cyanosis, Edema - Trace edema. Skin: No rashes, No breakdown Lymphatic: No Cervical, Supraclavicular, or Inguinal Adenopathy Neurological: Cranial nerves II-XII grossly intact, Motor Exam 5/5 strength throughout Psych/Mental Status: Normal Affect, Appropriate, Alert and oriented to time, place, person, mood and affect Vital Signs Temp Pulse Resp BP Pulse Ox 97.9 F 85 18 136/76 H 94 08/23/17 16:17 08/23/17 16:17 08/23/17 16:17 08/23/17 18:05 08/23/17 18:05 Laboratory Tests WBC 8.9 (4.4-11.0) K/mm3 RBC 4.44 L (4.6-6.2) M/mm3 Hgb 14.2 (13.0-16.5) g/dl Hct 42.9 (40-54) % Clinical Impression(s) from Imaging Studies Chest X-Ray 08/23/17 16:28 IMPRESSION: Normal x-ray examination of the chest. Electronically Signed: Andrew Teixeira MD at 18:09 EDT , Service support , Femur X-Ray 08/23/17 16:29 IMPRESSION: Distal femur fracture. Electronically Signed: Andrew Teixeira MD at 17:58 EDT , Service support , Knee X-Ray 08/23/17 16:29 IMPRESSION: Distal femur fracture. Joint effusion. Electronically Signed: Andrew Teixeira MD at 18:02 EDT , Service support , Pelvis X-Ray 08/23/17 16:29 IMPRESSION: No fracture. Right hip replacement. Electronically Signed: Andrew Teixeira MD at 18:13 EDT , Service support , Tibia/Fibula X-Ray 08/23/17 16:29 IMPRESSION: Demineralization of the osseous structures. Electronically Signed: Andrew Teixeira MD at 18:03 EDT , Service support , Assessment/Plan This is a 46 years old male patient presented to the medicine because of mechanical fall and right knee pain, found to have acute traumatic distal right hip fracture and is being admitted for pain control and evaluation by orthopedic surgery. #1 acute traumatic right distal femur fracture: Due to mechanical fall. X-ray of the right femur reviewed. Other imaging studies including x-ray of the pelvis, tibia and fibula, chest x-ray and x-ray of the right knee reviewed and findings noted which is only distal right femur fracture, otherwise no acute fractures or dislocations. Plan: Admit to MedSur floor, bedrest, IV morphine as needed for pain, IV OxyIR as needed for pain, IV fluids, IV antiemetics, orthopedic surgery consult, PT OT evaluation and treatment. #2 hypertension: Blood pressure stable, continue atenolol, lisinopril and HCTZ. #3 type 2 diabetes mellitus: Blood sugar stable, ADA diet, Accu-Cheks, insulin sliding scale, continue Levemir insulin twice daily and metformin. #4 history of pulmonary embolism: Continue Xarelto. #5 hematuria: Patient complained of hematuria that has been going on for few weeks on review of systems. At this time, he urinated twice in the ER and his urine was clean. Recommended follow-up with urology as outpatient. #6 tobacco abuse: Continue Chantix when dose updated. #7 obstructive sleep apnea: Not sure if patient is on CPAP at home. At this time, pulse ox is normal on room air. #8 DVT prophylaxis: Continue Xarelto. Other chronic medical problems: Stable, continue home medications. #1 GERD. #2 history of cardiac arrest. #3 morbid obesity. #4 chronic back pain. #5 anxiety/depression. This note was generated with RAREFORMation software. It may contain incorrect words, spelling, and punctuation that were not noted in checking the note before signing. Code Visit Inpatient E AND M: 64436 Init Hosp L3 08/23/171918 <Electronically signed by Ruben Hilario MD> Date Ruben Hilario MD Cosigner Signature: Date (if applicable) CC: Ruben Hilario; London Lou MD Signed EXTREMITY LOWER Observed: 08/23/2017 Status: F Source: [place] WITHOUT CONTRA 6:53 PM [facility] REPOSITORY [facility] Imaging Services [address] [place] [address] Extremity Lower without Contra MR#: [id number] Acct: [id number] Name: ADRIAN APONTE Jr. Rep #: [id number] : 1970 M 46 From: Andrew Teixeira MD PCP: London Lou MD Status: ADM IN Study: Extremity Lower without Contra Date of Exam: 08/23/17 Exam# [id number] Ordering Dr: Jose M Vazquez MD STUDY: CT RIGHT KNEE WITHOUT CONTRAST REASON FOR EXAM: Male, 46 years old. Fracture RADIATION DOSAGE (If Supplied By Facility): CTDIvol = ( 24.67 ) mGy, DLP = ( 944.70 ) mGycm TECHNIQUE: Transaxial CT imaging of the knee was performed. Coronal and sagittal images were reformatted. COMPARISON: None. FINDINGS: There is oblique fracture of the medial femoral condyle extending to the intercondylar region. Normal medial tibial plateau. There is preservation of the articular joint space of the medial knee compartment. Normal lateral femoral condyle and lateral tibial plateau. There is preservation of the articular joint space of the lateral knee compartment. Normal proximal tibiofibular articulation. There is large joint effusion with fluid level consistent with hemarthrosis. The quadriceps tendon is grossly normal. The patellar tendon is grossly normal. Normal Hoffa's fat pad. There is medial soft tissue swelling. CT/Extremity Lower without Contra IMPRESSION: Distal femur fracture. Electronically Signed: Andrew Teixeira MD at 19:58 EDT , Service support , CC: London Lou MD; Jose M Vazquez MD Technical Support Director: Signed CBC W/DIFF, AUTOMATED Collected: 08/23/2017 Status: F Source: [place] 4:44 PM [facility] REPOSITORY TYPE CODE TESTS RESULT OUT OF RANGE REFERENCE UNITS LAB L100.1000 4.4-11.0 K/mm3 Normal WBC 8.9 LAB L100.1200 4.6-6.2 M/mm3 Low RBC 4.44 LAB L100.1300 13.0-16.5 g/dl Normal HGB 14.2 LAB L100.1400 40-54 % Normal HCT 42.9 LAB L100.1500 80-94 fL High MCV 96.6 LAB L100.1600 27.0-32.0 pg Normal MCH 32.0 LAB L100.1700 32-36 g/gl Normal MCHC 33.1 LAB L100.1810 11.6-14.6 % Normal RDW CV 13.4 LAB L100.1820 35.1-43.9 fl High RDW SD 47.4 LAB L100.1900 150-450 K/mm3 Normal PLT 248 LAB L100.2000 6.2-12.0 fl Normal MPV 9.6 LAB L100.2100 47-70 % Normal NEUT% 55.4 LAB L100.2200 19-41 % Normal LY% 32.8 LAB L100.2300 0-10 % Normal MONO% 8.5 LAB L100.2400 0-5 % Normal EO% 2.3 LAB L100.2500 0-1 % Normal BASO% 0.7 LAB L100.2550 0.0-0.9 % Normal IM GRAN % 0.300 Result Comment: IG% - Immature Granulocytes (promyelocytes, myelocytes and metamyelocytes) > 1% indicates that a LEFT SHIFT is Present. LAB L100.2620 2.0-7.7 X10 3/uL Normal Absolute Neut 4.9 LAB L100.2720 0.83-4.51 X10 3/ul Normal Absolute Lymph 2.91 Performed By: #### L100.0100 #### [facility] [address] [place], [address] BASIC METABOLIC Collected: 08/23/2017 Status: F Source: [place] PROFILE (BMP) 4:44 PM [facility] REPOSITORY TYPE CODE TESTS RESULT OUT OF RANGE REFERENCE UNITS LAB L501.0100 74-106 mg/dL Normal GLU 93 Result Comment: Please note revised GLUCOSE reference range effective 2017. LAB L501.1000 7-18 mg/dL Normal BUN 14 LAB L501.1100 0.70-1.30 mg/dL Normal CREAT,SERUM 1.05 Result Comment: The validity of the calculated GFR AND GFRAA in patients over 70 years has not been determined. Clinical correlation is essential. LAB L501.1110 >60 mL/min Normal EST GFR 80 Result Comment: Non- GFR Calc LAB L501.1115 >60 mL/min Normal EST GFR - AA 97 Result Comment: GFR Calc LAB L501.1255 ml/min Normal Estimated CRCL 92.63 LAB L501.1300 10-20 RATIO Normal BUN/CRE 13.3 LAB L501.2200 8.5-10 mg/dL Normal .1 CA 8.6 LAB L501.5300 136-14 mmol/L Normal 5 NA 139 LAB L501.5600 3.5-5. mmol/L Normal 1 K 4.3 LAB L501.5900 98-107 mmol/L Normal CL 107 LAB L501.6100 21.0-3 mmol/L Normal 2.0 CO2 22.0 LAB L501.6200 5-15 Normal GAP 10 Performed By: #### L500.2500 #### [facility] [address] [facility] [place], [address] PROTHROMBIN TIME W/INR Collected: 08/23/2017 Status: F Source: [place] 4:44 PM [facility] REPOSITORY TYPE CODE TESTS RESULT OUT OF RANGE REFERENCE UNITS LAB L300.4150 11.7-14.9 SECONDS High PROTIME 19.2 LAB L300.4200 Normal INR 1.6 Performed By: #### L300.3900, L300.4310 #### [facility] [address] [place], [address] PARTIAL THROMBOPLAST Collected: 08/23/2017 Status: F Source: [place] TIME 4:44 PM [facility] REPOSITORY TYPE CODE TESTS RESULT OUT OF RANGE REFERENCE UNITS LAB L300.4310 24.1-36.2 Seconds Normal PTT 35.8 Performed By: #### L300.3900, L300.4310 #### [facility] [address] [place], [address] FEMUR MIN 2 VIEWS Observed: 08/23/2017 Status: F Source: [place] 4:31 PM [facility] REPOSITORY [facility] Imaging Services [address] [place] [address] Femur Min 2 Views MR#: [id number] Acct: [id number] Name: ADRIAN APONTE Jr. Rep #: [id number] : 1970 M 46 From: Andrew Teixeira MD PCP: London Lou MD Status: REG ER Study: Femur Min 2 Views Date of Exam: 08/23/17 Exam# [id number] Ordering Dr: Aaron Marie MD STUDY: X-RAY - RIGHT FEMUR REASON FOR STUDY: Male, 46 years old. Fall TECHNIQUE: Radiological exam, femur, minimum 2 views COMPARISON: None. FINDINGS: There is diffuse demineralization of the femur. Left hip replacement. Distal femur fracture at the knee extending through the medial femoral condyle. Normal visualized soft tissue structure. RAD/Femur Min 2 Views IMPRESSION: Distal femur fracture. Electronically Signed: Andrew Teixeira MD at 17:58 EDT , Service support , CC: Aaron Marie; London Lou MD Technical Support Director: Signed KNEE 1 OR 2 VIEWS Observed: 08/23/2017 Status: F Source: [place] 4:31 PM [facility] REPOSITORY [facility] Imaging Services [address] [address] Knee 1 or 2 Views MR#: [id number] Acct: [id number] Name: ADRIAN APONTE Jr. Rep #: [id number] : 1970 46 From: Andrew Teixeira MD PCP: London Lou MD Status: REG ER Study: Knee 1 or 2 Views Date of Exam: 08/23/17 Exam# [id number] Ordering Dr: Aaron Marie MD STUDY: X-RAY - RIGHT KNEE REASON FOR EXAM: Male, 46 years old. Fall TECHNIQUE: 2 view(s) of the knee. COMPARISON: None. FINDINGS: There is demineralization of the visualized distal femur. Nondisplaced medial femoral condyle fracture There is demineralization of the tibia and fibula. Normal proximal tibiofibular articulation. Normal medial femorotibial compartment. Normal lateral femorotibial compartment. Normal patellofemoral articulation. There is a large volume joint effusion. The soft tissue structures are unremarkable. RAD/Knee 1 or 2 Views IMPRESSION: Distal femur fracture. Joint effusion. Electronically Signed: Andrew Teixeira MD at 18:02 EDT , Service support , CC: Aaron Marie; London Lou MD Technical Support Director: Signed TIBIA AND FIBULA Observed: 08/23/2017 Status: F Source: [place] 2 VIEWS 4:31 PM [facility] REPOSITORY [facility] Imaging Services [address] [place] [address] Tibia AND Fibula 2 Views MR#: [id number] Acct: [id number] Name: ADRIAN APONTE Jr. Rep #: [id number] : 1970 M 46 From: Andrew Teixeira MD PCP: London Lou MD Status: REG ER Study: Tibia AND Fibula 2 Views Date of Exam: 08/23/17 Exam# [id number] Ordering Dr: Aaron Marie MD STUDY: X-RAY - RIGHT TIBIA AND FIBULA REASON FOR EXAM: Male, 46 years old. Fall TECHNIQUE: Frontal and lateral view(s) of the tibia and fibula were obtained. COMPARISON: None. FINDINGS: There is demineralization of the tibia. There is demineralization of the fibula. There is no demonstrated acute fracture. The soft tissue structures are unremarkable. RAD/Tibia AND Fibula 2 Views IMPRESSION: Demineralization of the osseous structures. Electronically Signed: Andrew Teixeira MD at 18:03 EDT , Service support , CC: Aaron Marie; London Lou MD Technical Support Director: Signed CHEST 1 VIEW Observed: 08/23/2017 Status: F Source: [place] (PORTABLE) 4:31 PM [facility] REPOSITORY [facility] Imaging Services [address] [place] [address] Chest 1 View (Portable) MR#: [id number] Acct: [id number] Name: ADRIAN APONTE Rep #: [id number] : 1970 M 46 From: Andrew Teixeira MD PCP: London Lou MD Status: REG ER Study: Chest 1 View (Portable) Date of Exam: 08/23/17 Exam# [id number] Ordering Dr: Aaron Marie MD STUDY: X-RAY CHEST REASON FOR EXAM: Male, 46 years old. Fall. TECHNIQUE: AP portable view of the chest. COMPARISON: August 07, 2017. FINDINGS: The lungs are clear and expanded. There is no demonstrated pleural abnormality. Normal size heart. Normal mediastinum and natalia. Normal visualized pulmonary arteries. Normal visualized aortic arch and descending thoracic aorta. Normal visualized thoracic spine. Normal visualized ribs, clavicles, and shoulders. There is no demonstrated abnormality of the visualized soft tissue structures of the upper abdomen. RAD/Chest 1 View (Portable) IMPRESSION: Normal x-ray examination of the chest. Electronically Signed: Andrew Teixeira MD at 18:09 EDT , Service support , CC: Aaron Marie; London Lou MD Technical Support Director: Signed PELVIS 1 OR 2 VIEWS Observed: 08/23/2017 Status: F Source: [place] 4:31 PM [facility] REPOSITORY [facility] Imaging Services [address] [place] [address] Pelvis 1 or 2 Views MR#: [id number] Acct: [id number] Name: ADRIAN APONTE Jr. Rep #: [id number] : 1970 M 46 From: Andrew Teixeira MD PCP: London Lou MD Status: REG ER Study: Pelvis 1 or 2 Views Date of Exam: 08/23/17 Exam# [id number] Ordering Dr: Aaron Marie MD STUDY: X-RAY - PELVIS REASON FOR EXAM: Male, 46 years old. Fall. TECHNIQUE: One view of the pelvis was obtained. COMPARISON: None. FINDINGS: There is a non-obstructive bowel gas pattern. There are multiple calcified phleboliths. Normal bilateral iliac wings, sacroiliac joints and visualized sacrum. Normal visualized bilateral superior and inferior pubic rami. Normal pubic symphysis. Normal ischial tuberosities. Right hip replacement . Alignment is near-anatomic. Normal visualized left femoral head. Normal left acetabulum. Normal left hip joint. RAD/Pelvis 1 or 2 Views IMPRESSION: No fracture. Right hip replacement. Electronically Signed: Andrew Teixeira MD at 18:13 EDT , Service support , CC: Aaron Marie; London Lou MD Technical Support Director: Signed 12 LEAD ELECTROCARDIOGRAM Observed: 08/09/2017 Status: F Source: [place] 2:00 PM [facility] REPOSITORY [facility] Cardiovascular Services [address] [place] [address] 12 Lead EKG 08/07/17 1157 MR#: [id number] Acct: [id number] Name: ADRIAN APONTE Jr. Rep #: [id number] : 1970 46 From: Mich Miranda MD Attending Dr: Sammy Neil MD Status: DIS IN Ordering Dr: Kobe Severino MD Date: 08/07/17 Location: [facility] [place] Sex: M C Admitted: 08/07/17 Test Reason : SOB Blood Pressure : / mmHG Vent. Rate : 119 BPM Atrial Rate : 119 BPM P-R Int : 168 ms QRS Dur : 076 ms QT Int : 326 ms P-R-T Axes : 049 008 021 degrees QTc Int : 458 ms Sinus tachycardia Otherwise normal ECG Confirmed by RUBEN NGUYEN, MICH ([id number]), editor sound MANAV VAZQUEZ ([id number]) on 08/09/2017 2:00:22 PM Referred By: USMAN Confirmed By:MICH MIRANDA MD 08/09/17 1400 Date Mich Miranda MD CC: London Lou MD; Kobe Severino MD Signed BEDSIDE GLUCOSE Collected: 08/09/2017 Status: F Source: [place] 11:34 AM [facility] REPOSITORY TYPE CODE TESTS RESULT OUT OF REFERENCE UNITS RANGE LAB L501.080 70-110 mg/dL High BEDSIDE GLU 317 Result Comment: MANAGEMENT OF PATIENT CARE PER NURSING PROTOCOL Performed By: #### L501.080 #### [facility] Point of Care [address] [facility] [place] [address] DISCHARGE SUMMARY Observed: 08/09/2017 Status: F Source: [place] 8:51 AM [facility] REPOSITORY [facility] Medical Records Department [address] [place] [address] Discharge Summary 08/09/17 0837 MR#: [id number] Acct: [id number] Name: FAYADRIAN Hernan Milan. Rep #: [id number] : 1970 46 From: Sammy Neil MD PCP: London Lou MD Status: ADM IN Location: [place] [address] Discharge Date and Diagnosis - Problem List Patient Problems: Active and Suspected Problems (Last Updated 05/29/17 @ 11:20 by Deepthi Spain) DM type 2 (diabetes mellitus, type 2) (Acute) Hematuria (Acute) UTI (urinary tract infection) (Acute) Hypoxia (Acute) Date of Admission: 08/07/17 Date of Discharge: 08/09/17 - Primary Discharge Diagnosis Active and Suspected Problems (Last Updated 05/29/17 @ 11:20 by Deepthi Spain) DM type 2 (diabetes mellitus, type 2) (Acute) Hematuria (Acute) UTI (urinary tract infection) (Acute) Hypoxia (Acute) - Secondary Discharge Diagnosis Chronic Problems (Last Updated 05/29/17 @ 11:20 by Deepthi Spain) Premature ventricular contraction (Chronic) Tachycardia (Chronic) Dyspnea (Chronic) KHALIF (obstructive sleep apnea) (Chronic) Tobacco dependence in remission (Chronic) Restrictive lung disease (Chronic) Pulmonary HTN (Chronic) Hypertension (Chronic) Obesity (Chronic) GERD (Chronic) VTE (venous thromboembolism) (Chronic) Morbid obesity (Chronic) Pulmonary embolism (Chronic) DVT (deep venous thrombosis) (Chronic) RLE Tear of medial meniscus of left knee (Chronic) Left ventricular hypertrophy (Chronic) Tricuspid regurgitation (Chronic) Lumbosacral spondylosis (Chronic) Degeneration of lumbosacral intervertebral disc (Chronic) Lumbosacral radiculopathy (Chronic) Hospital Course and Treatment Imaging Results: Clinical Impression(s) from Imaging Studies Abdomen/Pelvis CT 08/07/17 11:50 IMPRESSION: Fatty infiltration of the liver. Scattered sigmoid diverticula. Electronically Signed: Eliazar Funes MD at 12:50 EST Tel [phone], Service support , Chest X-Ray 08/07/17 12:28 IMPRESSION: Minimal increased markings in the right middle lobe. This is suggestive of mild atelectasis. Electronically Signed: Eliazar Funes MD at 12:51 EST Tel [phone], Service support , Operations: - - arthroscopic surgery on the left knee to repair a torn medial meniscus...01/[address] Waqas Rodriguez Summary of Care Provided: Patient is a 46-year-old gentleman with multiple comorbidities presented with hematuria and shortness of breath 1. Acute infectious hemorrhagic cystitis. Patient presented with hematuria (on Xarelto for history of DVT and PEs). Started on Rocephin after cultures have been sent 2. Acute hypoxia multi-factorial including patient's underlying obstructive sleep apnea, pulmonary hypertension obesity hypoventilation syndrome. Admitted to regular nursing floor placed on bronchodilator treatment as well as low-dose steroid in addition to supplemental oxygen 3. History of previous DVT and PE on systemic anticoagulation with Xarelto 4. Morbid obesity with BMI of 53.8 weight loss advised 5. New onset diabetes mellitus type 2. Patient presented with hyperglycemia hemoglobin A1c confirmed the new diagnosis of new onset diabetes mellitus type 2. Subsequently placed on long-acting insulin and Accu-Cheks before meals and at bedtime with sliding scale coverage. Patient was provided with diabetic education prior to his discharge 6. Hypertension-blood pressure controlled, home medications continued with dose adjustment as needed 7. Obstructive sleep apnea 8. Obesity hypoventilation syndrome 9. Pulmonary hypertension 10. DVT prophylaxis on Xarelto Discharge Activity: Return to Normal Activity Home Medications: Medications to take at Discharge Albuterol Inhaler [Ventolin Hfa] 1 - 2 puff INHALATION Q4H PRN PRN #1 inhaler 08/07/17 Potassium 99 mg PO DAILY 08/07/17 Albuterol IH (ProAir) [Proair Hfa] 2 puff INHALATION Q4H PRN PRN #1 inhaler 08/09/17 Atenolol [Tenormin (beta tamar)] 50 mg PO BID #120 tab 08/09/17 Cephalexin [Keflex] 500 mg PO Q12 #10 cap 08/09/17 Cyclobenzaprine [Flexeril] 10 mg PO TID PRN #30 tab 08/09/17 Furosemide [Lasix] 20 mg PO DAILY #60 tab 08/09/17 Gabapentin [Neurontin] 600 mg PO TIDCM #120 tab 08/09/17 Guaifenesin [Mucinex] 1,200 mg PO BID #14 tab 08/09/17 Insulin Detemir [Levemir FlexPen] 20 units SC BID #60 insuln.pen 08/09/17 Lisinopril/Hydrochlorothiazide [Zestoretic 10/12.5 Tablet] 1 tab PO DAILY #60 tab 08/09/17 Lorazepam [Ativan] 1 mg PO DAILY #30 tab 08/09/17 Metformin HCl [Glucophage] 1,000 mg PO BIDCM #120 tab 08/09/17 Omeprazole [Prilosec] 20 mg PO BID #120 cap 08/09/17 Rivaroxaban [Xarelto] 20 mg PO DAILY #60 tab 08/09/17 Sertraline HCl [Zoloft] 50 mg PO DAILY #60 tab 08/09/17 Zolpidem Tartrate [Ambien] 10 mg PO QHS PRN #30 tab 08/09/17 Following Prescrptions Were Given to Patient: Albuterol IH (ProAir) [Proair Hfa] 2 puff INHALATION Q4H PRN PRN #1 inhaler PRN Reason: Dyspnea/Wheezing/Sob Albuterol Inhaler [Ventolin Hfa] 1 - 2 puff INHALATION Q4H PRN PRN #1 inhaler PRN Reason: Wheezing Atenolol [Tenormin (beta tamar)] 50 mg PO BID #120 tab Cephalexin [Keflex] 500 mg PO Q12 #10 cap Cyclobenzaprine [Flexeril] 10 mg PO TID PRN #30 tab PRN Reason: Pain Furosemide [Lasix] 20 mg PO DAILY #60 tab Gabapentin [Neurontin] 600 mg PO TIDCM #120 tab Guaifenesin [Mucinex] 1,200 mg PO BID #14 tab Insulin Detemir [Levemir FlexPen] 20 units SC BID #60 insuln.pen Lisinopril/Hydrochlorothiazide [Zestoretic 10/12.5 Tablet] 1 tab PO DAILY #60 tab Lorazepam [Ativan] 1 mg PO DAILY #30 tab Metformin HCl [Glucophage] 1,000 mg PO BIDCM #120 tab Omeprazole [Prilosec] 20 mg PO BID #120 cap Rivaroxaban [Xarelto] 20 mg PO DAILY #60 tab Sertraline HCl [Zoloft] 50 mg PO DAILY #60 tab Zolpidem Tartrate [Ambien] 10 mg PO QHS PRN #30 tab PRN Reason: Sleep Primary Care Physician: London Lou MD [Primary Care Provider] - 1 Week Patient Instructions: ED Upper Resp Infec Abx Tx, ED UTI Cystitis Male Disposition: Home Minutes spent on discharge:: 35 Patient Condition:: Stable Meaningful Use Info Meaningful Use Diagnoses (Choose all that apply): None applicable Code Visit Inpatient E AND M: 09533 Disch Hosp 08/09/17 0851 <Electronically signed by Sammy Neil MD> Date Sammy Neil MD Cosigner Signature (if applicable): Date CC: Sammy Neil MD; London Lou MD Signed DISCHARGE INSTRUCTION Observed: 08/09/2017 Status: F Source: [place] 8:49 AM [facility] REPOSITORY [facility] Medical Records Department [address] [place] [address] Instructions for Home/Discharge Instructions 08/09/17 0849 MR#: [id number] Acct: [id number] Name: ADRIAN APONTE Jr. Rep #: [id number] : 1970 46 From: Sammy Neil MD PCP: London Lou MD Status: ADM IN - Discharge Diagnoses Current Active Problems: Current Active and Chronic Problems (Last Updated 05/29/17 @ 11:20 by Deepthi Spain) DM type 2 (diabetes mellitus, type 2) (Acute) Hematuria (Acute) UTI (urinary tract infection) (Acute) Hypoxia (Acute) Discharge Activity: Return to Normal Activity Instructions: ED Upper Resp Infec Abx Tx, ED UTI Cystitis Male Allergies/Adverse Reactions: Allergies quinine Allergy (Verified 08/07/17 11:17) Hives Medications to take at Discharge Albuterol Inhaler [Ventolin Hfa] 1 - 2 puff INHALATION Q4H PRN PRN #1 inhaler 08/07/17 Potassium 99 mg PO DAILY 08/07/17 Albuterol IH (ProAir) [Proair Hfa] 2 puff INHALATION Q4H PRN PRN #1 inhaler 08/09/17 Atenolol [Tenormin (beta tamar)] 50 mg PO BID #120 tab 08/09/17 Cephalexin [Keflex] 500 mg PO Q12 #10 cap 08/09/17 Cyclobenzaprine [Flexeril] 10 mg PO TID PRN #30 tab 08/09/17 Furosemide [Lasix] 20 mg PO DAILY #60 tab 08/09/17 Gabapentin [Neurontin] 600 mg PO TIDCM #120 tab 08/09/17 Guaifenesin [Mucinex] 1,200 mg PO BID #14 tab 08/09/17 Insulin Detemir [Levemir FlexPen] 20 units SC BID #60 insuln.pen 08/09/17 Lisinopril/Hydrochlorothiazide [Zestoretic 10/12.5 Tablet] 1 tab PO DAILY #60 tab 08/09/17 Lorazepam [Ativan] 1 mg PO DAILY #30 tab 08/09/17 Metformin HCl [Glucophage] 1,000 mg PO BIDCM #120 tab 08/09/17 Omeprazole [Prilosec] 20 mg PO BID #120 cap 08/09/17 Rivaroxaban [Xarelto] 20 mg PO DAILY #60 tab 08/09/17 Sertraline HCl [Zoloft] 50 mg PO DAILY #60 tab 08/09/17 Zolpidem Tartrate [Ambien] 10 mg PO QHS PRN #30 tab 08/09/17 The following prescriptions were given: Albuterol IH (ProAir) [Proair Hfa] 2 puff INHALATION Q4H PRN PRN #1 inhaler PRN Reason: Dyspnea/Wheezing/Sob Albuterol Inhaler [Ventolin Hfa] 1 - 2 puff INHALATION Q4H PRN PRN #1 inhaler PRN Reason: Wheezing Atenolol [Tenormin (beta tamar)] 50 mg PO BID #120 tab Cephalexin [Keflex] 500 mg PO Q12 #10 cap Cyclobenzaprine [Flexeril] 10 mg PO TID PRN #30 tab PRN Reason: Pain Furosemide [Lasix] 20 mg PO DAILY #60 tab Gabapentin [Neurontin] 600 mg PO TIDCM #120 tab Guaifenesin [Mucinex] 1,200 mg PO BID #14 tab Insulin Detemir [Levemir FlexPen] 20 units SC BID #60 insuln.pen Lisinopril/Hydrochlorothiazide [Zestoretic 10/12.5 Tablet] 1 tab PO DAILY #60 tab Lorazepam [Ativan] 1 mg PO DAILY #30 tab Metformin HCl [Glucophage] 1,000 mg PO BIDCM #120 tab Omeprazole [Prilosec] 20 mg PO BID #120 cap Rivaroxaban [Xarelto] 20 mg PO DAILY #60 tab Sertraline HCl [Zoloft] 50 mg PO DAILY #60 tab Zolpidem Tartrate [Ambien] 10 mg PO QHS PRN #30 tab PRN Reason: Sleep Primary Care Physician: London Lou MD [Primary Care Provider] - 1 Week Proposed Discharge Date: 08/09/17 08/09/17 0849 <Electronically signed by Sammy Neil MD> Date Sammy Neil MD CC: London Lou MD DISCHARGE INSTRUCTION Observed: 08/09/2017 Status: F Source: [place] 8:37 AM [facility] REPOSITORY [facility] Medical Records Department [address] [place] [address] Instructions for Home/Discharge Instructions 08/09/17 0835 MR#: [id number] Acct: [id number] Name: ADRIAN APONTE JrValentin Rep #: [id number] : 1970 46 From: Sammy Neil MD PCP: London Lou MD Status: ADM IN - Discharge Diagnoses Current Active Problems: Current Active and Chronic Problems (Last Updated 05/29/17 @ 11:20 by Deepthi Spain) Hematuria (Acute) UTI (urinary tract infection) (Acute) Hypoxia (Acute) You will use the following diet at home:: Calorie/Carbohydrate Controlled (specify 1200, 1400, etc) - 1800 Discharge Activity: Return to Normal Activity Instructions: ED Upper Resp Infec Abx Tx, ED UTI Cystitis Male Allergies/Adverse Reactions: Allergies quinine Allergy (Verified 08/07/17 11:17) Hives Medications to take at Discharge Albuterol Inhaler [Ventolin Hfa] 1 - 2 puff INHALATION Q4H PRN PRN #1 inhaler 08/07/17 Atenolol [Tenormin (beta tamar)] 50 mg PO BID 08/07/17 Cyclobenzaprine [Flexeril] 600 mg PO TID PRN 08/07/17 Furosemide [Lasix] 20 mg PO DAILY 08/07/17 Gabapentin [Neurontin] 600 mg PO TIDCM 08/07/17 Levofloxacin [Levaquin] 750 mg PO DAILY #7 tab 08/07/17 Lisinopril/Hydrochlorothiazide [Zestoretic 10/12.5 Tablet] 1 tablet PO DAILY 08/07/17 Lorazepam [Ativan] 1 mg PO DAILY 08/07/17 Omeprazole [Prilosec] 20 mg PO BID 08/07/17 Potassium 99 mg PO DAILY 08/07/17 Rivaroxaban [Xarelto] 20 mg PO DAILY 08/07/17 Sertraline HCl [Zoloft] 50 mg PO DAILY 08/07/17 Zolpidem Tartrate [Ambien] 10 mg PO QHS PRN 08/07/17 Guaifenesin [Mucinex] 1,200 mg PO BID #14 tab 08/09/17 Insulin Detemir [Levemir FlexPen] 20 units SC BID #60 insuln.pen 08/09/17 Metformin HCl [Glucophage] 1,000 mg PO BIDCM #120 tab 08/09/17 The following prescriptions were given: Albuterol Inhaler [Ventolin Hfa] 1 - 2 puff INHALATION Q4H PRN PRN #1 inhaler PRN Reason: Wheezing Guaifenesin [Mucinex] 1,200 mg PO BID #14 tab Insulin Detemir [Levemir FlexPen] 20 units SC BID #60 insuln.pen Levofloxacin [Levaquin] 750 mg PO DAILY #7 tab Metformin HCl [Glucophage] 1,000 mg PO BIDCM #120 tab Primary Care Physician: London Lou MD [Primary Care Provider] - 1 Week Proposed Discharge Date: 08/09/17 08/09/17 0837 <Electronically signed by Sammy Neil MD> Date Sammy Neil MD CC: London Lou MD BASIC METABOLIC Collected: 08/09/2017 Status: F Source: [place] PROFILE (BMP) 6:40 AM [facility] REPOSITORY TYPE CODE TESTS RESULT OUT OF RANGE REFERENCE UNITS LAB L501.0100 74-106 mg/dL High GLU 239 Result Comment: Glucose result greater than or equal to 200 mg/dL suggests DIABETES MELLITUS per A.D.A. criteria. Please note revised GLUCOSE reference range effective 2017. LAB L501.1000 7-18 mg/dL Normal BUN 16 LAB L501.1100 0.70-1.30 mg/dL Normal CREAT,SERUM 1.25 Result Comment: The validity of the calculated GFR AND GFRAA in patients over 70 years has not been determined. Clinical correlation is essential. LAB L501.1110 >60 mL/min Normal EST GFR 66 Result Comment: Non- GFR Calc LAB L501.1115 >60 mL/min Normal EST GFR - AA 79 Result Comment: GFR Calc LAB L501.1255 ml/min Normal Estimated CRCL 77.81 LAB L501.1300 10-20 RATIO Normal BUN/CRE 12.8 LAB L501.2200 8.5-10 mg/dL Normal .1 CA 8.6 LAB L501.5300 136-14 mmol/L Normal 5 NA 136 LAB L501.5600 3.5-5. mmol/L Normal 1 K 3.8 LAB L501.5900 98-107 mmol/L Normal CL 102 LAB L501.6100 21.0-3 mmol/L Normal 2.0 CO2 25.0 LAB L501.6200 5-15 Normal GAP 9 Performed By: #### L500.2500 #### [facility] [address] [place], [address] BEDSIDE GLUCOSE Collected: 08/09/2017 Status: F Source: [place] 6:34 AM [facility] REPOSITORY TYPE CODE TESTS RESULT OUT OF REFERENCE UNITS RANGE LAB L501.080 70-110 mg/dL High BEDSIDE GLU 258 Result Comment: MANAGEMENT OF PATIENT CARE PER NURSING PROTOCOL Performed By: #### L501.080 #### [facility] Point of Care [address] [place] [address] BEDSIDE GLUCOSE Collected: 08/08/2017 Status: F Source: [place] 9:19 PM [facility] REPOSITORY TYPE CODE TESTS RESULT OUT OF REFERENCE UNITS RANGE LAB L501.080 70-110 mg/dL High BEDSIDE GLU 323 Result Comment: MANAGEMENT OF PATIENT CARE PER NURSING PROTOCOL Performed By: #### L501.080 #### [facility] Point of Care [address] [place] [address] BEDSIDE GLUCOSE Collected: 08/08/2017 Status: F Source: [place] 4:31 PM [facility] REPOSITORY TYPE CODE TESTS RESULT OUT OF REFERENCE UNITS RANGE LAB L501.080 70-110 mg/dL High BEDSIDE GLU 403 Result Comment: MANAGEMENT OF PATIENT CARE PER NURSING PROTOCOL Performed By: #### L501.080 #### [facility] Point of Care [address] [place] [address] EMERGENCY DEPARTMENT Observed: 08/08/2017 Status: F Source: [place] SUMMARY 3:29 PM [facility] REPOSITORY [facility] Medical Records Department [address] [place] [address] Emergency Department Summary 08/07/17 1333 MR#: [id number] Acct: [id number] Name: ADRIAN APONTE Jr. Rep #: [id number] : 1970 46 From: Kobe Severino MD PCP: London Lou MD Status: ADM IN - ER Visit Summary Date of Service: 08/07/17 Chief Complaint: Hematuria and shortness of breath History of Present Illness: The patient is a [address] Lou in [place] and Dr. Astorga. He reports that he is on Xarelto for PE. States that approximately 2 weeks ago he began having hematuria and passing clots. Reports that he is emptying his bladder well most of the time. He feels as though his bladder is emptying well today. Patient reports is been short of breath for approximately 2 months. Is been gradually increasing. He has been wheezing. He does not use an inhaler. States is worse when he exerts himself. He states that he is short of breath at night until he puts his CPAP on. States that he has had a cough productive yellow sputum for months. There is been no blood in his sputum. He had subjective fever. No chills. He has had sweats. He complains of chest pain with coughing only. He denies any exertional chest pain. Patient complains of subjective fever. A mild sore throat. He has bilateral ankle swelling that he reports is chronic and actually slightly improved from usual. States that he has not been diagnosed with diabetes, but his blood sugars been 221- 371 is checked at 5 times over the past 4 days. Physical Examination: Vitals: 98.2, 124/82, 123, 20, 90% on room air which is hypoxic. General: Well-nourished and well-developed. Head: Normocephalic atraumatic. Neck: Supple, no lymphadenopathy. No JVD. Nontender. Cardiovascular: Tachycardic regular rhythm with a 2 out of 6 systolic murmur. Respiratory: No respiratory distress. Mild wheezing bilaterally with greatly decreased air movement. Abdominal: Soft, nontender, nondistended, normal bowel sounds. No guarding, rebound, or peritoneal signs. Back: Nontender. Extremities: Nontender, 2+ pitting edema of his lower extremities bilaterally. This is symmetric. Skin: Normal color, no rash. Neurologic: Alert and oriented 3. Cranial nerves II through XII are intact. Normal strength and sensation. Psych: Normal affect. Test Results: Chest x-ray shows atelectasis and no infiltrate. CT flank shows normal kidneys, normal bladder, normal appendix. EKG is sinus tach at [address] changes. CBC is normal. Chem-7 is more for glucose of 220 and calcium of 8.4. LFTs marked for an albumin 3.0, globulin 5.1, ALT of 74, AST of 105. INR is 1.4. PTT is 34.6. UA is remarkable for 50-100 white blood cells and 25-50 red blood cells. This was sent for culture. Troponin is negative. PT [employer] is 8.1. Hemoglobin A1c is 8.4. Emergency Department Course and Treatment: Patient was treated with albuterol Atrovent aerosols. He does feel improved. He would like to go home. He is ambulated in the [place] and his pulse ox drops to 83%. I offered to get him oxygen for at home and he states that he does not want this. He is given Levaquin p.o. He refused steroids. Did have a prolonged discussion with him about the fact that his blood sugar has been approximately 180 on average over the course the past 3 months and he certainly does have diabetes mellitus. Treatment Plan: Patient was discussed with Dr. wells. He will be admitted to the hospital for further evaluation and treatment. Disposition: Admitted in improved condition. Impression: 1. COPD exacerbation. 2. Hypoxia. 3. UTI. 4. Hematuria. 5. Coagulopathy on Xarelto. 6. Type 2 diabetes mellitus, new diagnosis. This note was generated with [employer] dictation software. It may contain incorrect words, spelling, and punctuation that were not noted in review of the chart prior to signing ED Disposition - Plan for ED Patient: Disposition: Acute Care [facility] Chief Complaint: Shortness of Breath What to do if you have Problems For any increased pain, shortness of breath, bleeding, nausea or vomiting, chest pain, or any unexpected problems, contact your Primary Care Provider. Call [facility] ([phone]) or report to the closest Emergency Room. Call 911 if necessary. 08/08/17 1529 <Electronically signed by Kobe Severino MD> Date Kobe Severino MD Cosigner Signature (If Indicated): Date CC: London Lou MD GLUCOSE Collected: 08/08/2017 Status: F Source: [place] 11:50 AM [facility] REPOSITORY Order Comment: Comments: follow up after BGT= 493 TYPE CODE TESTS RESULT OUT OF RANGE REFERENCE UNITS LAB L501.0100 74-106 mg/dL High alert GLU 494 Result Comment: Critical Result(s) Called at: 12:16:59 08/08/2017 by: Toribio Ferguson RN (MS2). Glucose result greater than or equal to 200 mg/dL suggests DIABETES MELLITUS per A.D.A. criteria. Please note revised GLUCOSE reference range effective 2017. Performed By: #### L501.0100 #### [facility] [address] [facility] [place], [place], [id number] BEDSIDE GLUCOSE Collected: 08/08/2017 Status: F Source: [place] 10:55 AM [facility] REPOSITORY TYPE CODE TESTS RESULT OUT OF REFERENCE UNITS RANGE LAB L501.080 70-110 mg/dL High alert BEDSIDE GLU 493 Result Comment: Insulin Given MANAGEMENT OF PATIENT CARE PER NURSING PROTOCOL Performed By: #### L501.080 #### [facility] Point of Care [address] [place] [address] BEDSIDE GLUCOSE Collected: 08/08/2017 Status: F Source: [place] 6:38 AM [facility] REPOSITORY TYPE CODE TESTS RESULT OUT OF REFERENCE UNITS RANGE LAB L501.080 70-110 mg/dL High BEDSIDE GLU 360 Result Comment: MANAGEMENT OF PATIENT CARE PER NURSING PROTOCOL Performed By: #### L501.080 #### [facility] Point of Care [address] [place], [place] [address] CBC W/DIFF, AUTOMATED Collected: 08/08/2017 Status: F Source: [place] 5:40 AM [facility] REPOSITORY TYPE CODE TESTS RESULT OUT OF RANGE REFERENCE UNITS LAB L100.1000 4.4-11.0 K/mm3 High WBC 11.8 LAB L100.1200 4.6-6.2 M/mm3 Normal RBC 4.66 LAB L100.1300 13.0-16.5 g/dl Normal HGB 14.8 LAB L100.1400 40-54 % Normal HCT 44.3 LAB L100.1500 80-94 fL High MCV 95.1 LAB L100.1600 27.0-32.0 pg Normal MCH 31.8 LAB L100.1700 32-36 g/gl Normal MCHC 33.4 LAB L100.1810 11.6-14.6 % Normal RDW CV 13.5 LAB L100.1820 35.1-43.9 fl High RDW SD 46.6 LAB L100.1900 150-450 K/mm3 Normal PLT 253 LAB L100.2000 6.2-12.0 fl Normal MPV 9.9 LAB L100.2100 47-70 % High NEUT% 82.9 LAB L100.2200 19-41 % Low LY% 12.9 LAB L100.2300 0-10 % Normal MONO% 3.8 LAB L100.2400 0-5 % Normal EO% 0.0 LAB L100.2500 0-1 % Normal BASO% 0.1 LAB L100.2550 0.0-0.9 % Normal IM GRAN % 0.300 Result Comment: IG% - Immature Granulocytes (promyelocytes, myelocytes and metamyelocytes) > 1% indicates that a LEFT SHIFT is Present. LAB L100.2620 2.0-7.7 X10 3/uL High Absolute Neut 9.7 LAB L100.2720 0.83-4.51 X10 3/ul Normal Absolute Lymph 1.52 Performed By: #### L100.0100 #### [facility] [address] [place], [place], [address] BASIC METABOLIC Collected: 08/08/2017 Status: F Source: [place] PROFILE (BMP) 5:40 AM [facility] REPOSITORY TYPE CODE TESTS RESULT OUT OF RANGE REFERENCE UNITS LAB L501.0100 74-106 mg/dL High GLU 381 Result Comment: Glucose result greater than or equal to 200 mg/dL suggests DIABETES MELLITUS per A.D.A. criteria. Please note revised GLUCOSE reference range effective 2017. LAB L501.1000 7-18 mg/dL Normal BUN 14 LAB L501.1100 0.70-1.30 mg/dL Normal CREAT,SERUM 1.10 Result Comment: The validity of the calculated GFR AND GFRAA in patients over 70 years has not been determined. Clinical correlation is essential. LAB L501.1110 >60 mL/min Normal EST GFR 76 Result Comment: Non- GFR Calc LAB L501.1115 >60 mL/min Normal EST GFR - AA 92 Result Comment: GFR Calc LAB L501.1255 ml/min Normal Estimated CRCL 88.42 LAB L501.1300 10-20 RATIO Normal BUN/CRE 12.7 LAB L501.2200 8.5-10 mg/dL Normal .1 CA 8.6 LAB L501.5300 136-14 mmol/L Low 5 NA 132 LAB L501.5600 3.5-5. mmol/L Normal 1 K 4.1 LAB L501.5900 98-107 mmol/L Normal CL 101 LAB L501.6100 21.0-3 mmol/L Normal 2.0 CO2 21.0 LAB L501.6200 5-15 Normal GAP 10 Performed By: #### L500.2500 #### [facility] [address] [place], [place], [address] BEDSIDE GLUCOSE Collected: 08/07/2017 Status: F Source: [place] 8:52 PM [facility] REPOSITORY TYPE CODE TESTS RESULT OUT OF REFERENCE UNITS RANGE LAB L501.080 70-110 mg/dL High BEDSIDE GLU 309 Result Comment: MANAGEMENT OF PATIENT CARE PER NURSING PROTOCOL Performed By: #### L501.080 #### [facility] Point of Care [address] [place] [address] Observed: 08/07/2017 Status: F Source: [place] CULTURE, SPUTUM 8:25 PM [facility] REPOSITORY Gram Stain Acceptable Specimen? Yes (<25 Epithelial cells per/lpf) Gram Stain 4+ White Blood Cells 2+ Epithelial cells 4+ Gram positive cocci 4+ Gram positive rods 3+ Gram negative rods Resp. Culture No Streptococcus group A isolated. No Haemophilus, Streptococcus pneumoniae or Staphylococcus aureus isolated. #1 Unable to type; Penicillin is the drug of choice for Beta Streptococcal infections. For Penicillin allergic patients, Erythromycin may be used. ORGANISM 1: Beta hemolytic streptococcus Amount Growth Rare Performed By: #### M100.0800 #### [facility] [place], [address] Observed: 08/07/2017 Status: F Source: [place] CULTURE, URINE 6:55 PM [facility] REPOSITORY Urine Culture Culture exhibits no growth. Performed By: #### M100.0650 #### [facility]. [place], [place], [address] BEDSIDE GLUCOSE Collected: 08/07/2017 Status: F Source: [place] 6:18 PM [facility] REPOSITORY TYPE CODE TESTS RESULT OUT OF REFERENCE UNITS RANGE LAB L501.080 70-110 mg/dL High BEDSIDE GLU 235 Result Comment: MANAGEMENT OF PATIENT CARE PER NURSING PROTOCOL Performed By: #### L501.080 #### [facility] Point of Care [address] [place] [id number] Observed: 08/07/2017 Status: F Source: [place] INFLUENZA A+B (RAPID 4:41 PM [facility]) REPOSITORY FLU A/B Rapid Negative test results should be confirmed by culture. Order Rapid Viral Culture for Influenzae A+B ([id number]) if clinically indicated. Influenza Ag, Direct Presumptive NEGATIVE for Influenza A/B Antigen (See Note) Performed By: #### M101.0101 #### [facility] [address] [place] [address], [id number] HISTORY AND PHYSICAL Observed: 08/07/2017 Status: F Source: [place] EXAM 3:05 PM [facility] REPOSITORY [facility] Medical Records Department [facility] [place] [address] History and Physical 08/07/17 1422 MR#: [id number] Acct: [id number] Name: ADRIAN APONTE Rep #: [id number] : 1970 46 From: Sammy Neil MD PCP: London Lou MD Status: ADM IN Y Location: [place] [id number] Problem List (1) DVT (deep venous thrombosis) Status: Chronic Comment: RLE (2) Dyspnea Status: Chronic (3) Premature ventricular contraction Status: Chronic (4) Pulmonary embolism Status: Chronic (5) Tachycardia Status: Chronic (6) Tricuspid regurgitation Status: Chronic Qualifiers: Cardiac valve disease etiology: nonrheumatic Qualified Code(s): I36.1 - Nonrheumatic tricuspid (valve) insufficiency (7) Degeneration of lumbosacral intervertebral disc Status: Chronic (8) GERD Status: Chronic (9) Hypertension Status: Chronic (10) Left ventricular hypertrophy Status: Chronic (11) Lumbosacral radiculopathy Status: Chronic (12) Lumbosacral spondylosis Status: Chronic (13) Morbid obesity Status: Chronic (14) KHALIF (obstructive sleep apnea) Status: Chronic (15) Obesity Status: Chronic (16) Pulmonary HTN Status: Chronic (17) Restrictive lung disease Status: Chronic (18) Tear of medial meniscus of left knee Status: Chronic (19) Tobacco dependence in remission Status: Chronic (20) VTE (venous thromboembolism) Status: Chronic (21) Hematuria Status: Acute (22) UTI (urinary tract infection) Status: Acute (23) Hypoxia Status: Acute (24) History of appendectomy Status: Resolved (25) History of hip replacement Status: Resolved (26) History of knee surgery Status: Resolved (27) lt foot reconstruction Status: Resolved History of Present Illness Date of Admission: 08/07/17 Chief Complaint: Blood in the urine The patient is a 46 year old M past medical history significant for VTE or systemic anticoagulation with Xarelto who presented with hematuria. Patient symptoms started a couple of days prior to coming in. On the morning of his presentation he did notice passing clots as big as this thumb.. Patient had also noticed pain in both flanks couple of weeks prior to coming in. In the ED his assessment was consistent with acute cystitis plan was for patient to be discharged on antibiotics however he was found to be hypoxic with ambulation. Subsequently underwent CTA of the chest which is negative for PE. Decision was made to admit patient for inpatient management. He was also found to have hyperglycemia on admission patient however denied being diabetic Past Medical History Past Medical History (Chronic Problems): Chronic Problems (Last Updated 05/29/17 @ 11:20 by Deepthi Spain) Premature ventricular contraction (Chronic) Tachycardia (Chronic) Dyspnea (Chronic) KHALIF (obstructive sleep apnea) (Chronic) Tobacco dependence in remission (Chronic) Restrictive lung disease (Chronic) Pulmonary HTN (Chronic) Hypertension (Chronic) Obesity (Chronic) GERD (Chronic) VTE (venous thromboembolism) (Chronic) Morbid obesity (Chronic) Pulmonary embolism (Chronic) DVT (deep venous thrombosis) (Chronic) RLE Tear of medial meniscus of left knee (Chronic) Left ventricular hypertrophy (Chronic) Tricuspid regurgitation (Chronic) Lumbosacral spondylosis (Chronic) Degeneration of lumbosacral intervertebral disc (Chronic) Lumbosacral radiculopathy (Chronic) Allergies quinine Allergy (Verified 08/07/17 11:17) Hives Home Medications: Ambulatory Orders Medication Instructions Recorded Surgical History: appendectomy, total knee arthroplasty, - - Appendectomy, chest surgery for removal of organized clot under rib cage, heart catheterization Psychiatric History: No pertinent psych hx Smoking Status: Current every day smoker - *Family History Maternal History Items: Heart Disease Paternal History Items: Heart Disease Review of Systems Constitutional: Reports: Fatigue HEENT: Denies: Head Aches, Sinus Congestion, Sinus Drainage Cardiovascular: Reports: Palpitations. Denies: Chest Pain, Orthopnea, Paroxysmal Noc. Dyspnea Respiratory: Reports: Shortness of Breath, Shortness of breath at rest Gastrointestinal: Denies: Abdominal Pain, Hematemesis, Hematochezia, Nausea, Melena, Vomiting Genitourinary: Reports: Hematuria Musculoskeletal: Denies: Joint Pain, Joint Tenderness Skin: Denies: Rash Neurological: Denies: Focal weakness, Numbness, Tingling Psychiatric: Denies: Homicidal Ideations, Suicidal Ideations Hematologic/ Lymphatic: Denies: Easy Bruising, Easy Bleeding VTE Information - Inpt Only VTE Present on Admission: No VTE Mechan Device Prophylaxis: Knee High ELVIN Hose VTE Pharm Prophylaxis ordered?: Yes Patient Problems: Active and Suspected Problems (Last Updated 05/29/17 @ 11:20 by Deepthi Spain) Hematuria (Acute) UTI (urinary tract infection) (Acute) Hypoxia (Acute) Objective: GENERAL: Patient appears anxious HEENT: Clear conjunctiva, moist oral mucosa NECK; supple, normal thyroid, CHEST: Diminished to auscultation bilaterally, HEART: Regular S1 S2, tachycardiac ABDOMEN: soft, non-tender, normoactive bowel sounds, RECTAL: deferred EXTREMITIES: No edema, no clubbing, no cyanosis. JOINTER SUBMARINE CABLE: Awake, no lateralizing signs. SKIN: No rash - Physical Exam Vital Signs Temp Pulse Resp BP Pulse Ox 98.2 F 117 H 16 124/82 H 93 08/07/17 11:14 08/07/17 14:12 08/07/17 14:12 08/07/17 13:00 08/07/17 14:12 Oxygen Delivery Method Room Air Weight: 175.1 kg Body Mass Index (BMI) 53.8 Finger Stick Blood Glucose 234 Laboratory Tests Past 24 Hrs WBC RBC Hgb Hct MCV POC Glucose POC Glucose 234 H Assessment/Plan Active and Suspected Problems (Last Updated 05/29/17 @ 11:20 by Deepthi Spain) Hematuria (Acute) UTI (urinary tract infection) (Acute) Hypoxia (Acute) Patient is a 46-year-old gentleman with multiple comorbidities presented with hematuria and shortness of breath 1. Acute infectious hemorrhagic cystitis. Patient presented with hematuria (on Xarelto for history of DVT and PEs). Started on Rocephin after cultures have been sent 2. Acute hypoxia multi-factorial including patient's underlying obstructive sleep apnea, pulmonary hypertension obesity hypoventilation syndrome. Admitted to regular nursing floor placed on bronchodilator treatment as well as low-dose steroid in addition to supplemental oxygen 3. History of previous DVT and PE on systemic anticoagulation with Xarelto 4. Morbid obesity with BMI of 53.8 weight loss advised 5. Hyperglycemia do suspect patient having underlying new onset diabetes mellitus type 2. Did request for hemoglobin A1c please and Accu-Cheks before meals and at bedtime with sliding scale coverage 6. Hypertension-blood pressure controlled, home medications continued with dose adjustment as needed 7. Obstructive sleep apnea 8. Obesity hypoventilation syndrome 9. Pulmonary hypertension 10. DVT prophylaxis on Xarelto Code Visit Inpatient Hernan AND M: [id number] Subs Hosp L3 08/07/17 1505 <Electronically signed by Sammy Neil MD> Date Sammy Neil MD Cosigner Signature: Date (if applicable) CC: Sammy Neil MD; London Lou MD Signed BEDSIDE GLUCOSE Collected: 08/07/2017 Status: F Source: [place] 12:14 PM [facility] REPOSITORY TYPE CODE TESTS RESULT OUT OF REFERENCE UNITS RANGE LAB L501.080 70-110 mg/dL High BEDSIDE GLU 234 Result Comment: MANAGEMENT OF PATIENT CARE PER NURSING PROTOCOL Performed By: #### L501.080 #### [facility] Point of Care [address] [place], [place] [address] PROTHROMBIN TIME W/INR Collected: 08/07/2017 Status: F Source: [place] 12:05 PM [facility] REPOSITORY TYPE CODE TESTS RESULT OUT OF RANGE REFERENCE UNITS LAB L300.4150 11.7-14.9 SECONDS High PROTIME 16.6 LAB L300.4200 Normal INR 1.4 Performed By: #### L300.3900, L300.4310 #### [facility] [address] [place], [place], [address] PARTIAL THROMBOPLAST Collected: 08/07/2017 Status: F Source: [place] TIME 12:05 PM [facility] REPOSITORY TYPE CODE TESTS RESULT OUT OF RANGE REFERENCE UNITS LAB L300.4310 24.1-36.2 Seconds Normal PTT 34.6 Performed By: #### L300.3900, L300.4310 #### [facility] [address] [place], [address] CBC W/DIFF, AUTOMATED Collected: 08/07/2017 Status: F Source: [place] 12:05 PM [facility] REPOSITORY TYPE CODE TESTS RESULT OUT OF RANGE REFERENCE UNITS LAB L100.1000 4.4-11.0 K/mm3 Normal WBC 10.0 LAB L100.1200 4.6-6.2 M/mm3 Normal RBC 4.73 LAB L100.1300 13.0-16.5 g/dl Normal HGB 15.1 LAB L100.1400 40-54 % Normal HCT 44.2 LAB L100.1500 80-94 fL Normal MCV 93.4 LAB L100.1600 27.0-32.0 pg Normal MCH 31.9 LAB L100.1700 32-36 g/gl Normal MCHC 34.2 LAB L100.1810 11.6-14.6 % Normal RDW CV 13.4 LAB L100.1820 35.1-43.9 fl High RDW SD 45.8 LAB L100.1900 150-450 K/mm3 Normal PLT 292 LAB L100.2000 6.2-12.0 fl Normal MPV 9.4 LAB L100.2100 47-70 % Normal NEUT% 61.7 LAB L100.2200 19-41 % Normal LY% 28.5 LAB L100.2300 0-10 % Normal MONO% 8.3 LAB L100.2400 0-5 % Normal EO% 0.8 LAB L100.2500 0-1 % Normal BASO% 0.4 LAB L100.2550 0.0-0.9 % Normal IM GRAN % 0.300 Result Comment: IG% - Immature Granulocytes (promyelocytes, myelocytes and metamyelocytes) > 1% indicates that a LEFT SHIFT is Present. LAB L100.2620 2.0-7.7 X10 3/uL Normal Absolute Neut 6.2 LAB L100.2720 0.83-4.51 X10 3/ul Normal Absolute Lymph 2.86 Performed By: #### L100.0100 #### [facility] [address] [place] [address]. [place], [address] BASIC METABOLIC Collected: 08/07/2017 Status: F Source: [place] PROFILE (BMP) 12:05 PM [facility] REPOSITORY Order Comment: 'TROP' Serial specimen #1, #2, #3, or #4: 1 TYPE CODE TESTS RESULT OUT OF RANGE REFERENCE UNITS LAB L501.0100 74-106 mg/dL High GLU 220 Result Comment: Glucose result greater than or equal to 200 mg/dL suggests DIABETES MELLITUS per A.D.A. criteria. Please note revised GLUCOSE reference range effective 2017. LAB L501.1000 7-18 mg/dL Normal BUN 12 LAB L501.1100 0.70-1.30 mg/dL Normal CREAT,SERUM 1.07 Result Comment: The validity of the calculated GFR AND GFRAA in patients over 70 years has not been determined. Clinical correlation is essential. LAB L501.1110 >60 mL/min Normal EST GFR 79 Result Comment: Non- GFR Calc LAB L501.1115 >60 mL/min Normal EST GFR - AA 95 Result Comment: GFR Calc LAB L501.1255 ml/min Normal Estimated CRCL 90.90 LAB L501.1300 10-20 RATIO Normal BUN/CRE 11.2 LAB L501.2200 8.5-10 mg/dL Low .1 CA 8.4 LAB L501.5300 136-14 mmol/L Normal 5 NA 137 LAB L501.5600 3.5-5. mmol/L Normal 1 K 3.5 LAB L501.5900 98-107 mmol/L Normal CL 104 LAB L501.6100 21.0-3 mmol/L Normal 2.0 CO2 23.0 LAB L501.6200 5-15 Normal GAP 10 Performed By: #### L500.2500, L500.3400, L501.4010 #### [facility] [address] [place], [place], [address] LIVER PROFILE Collected: 08/07/2017 Status: F Source: [place] 12:05 PM [facility] REPOSITORY Order Comment: 'TROP' Serial specimen #1, #2, #3, or #4: 1 TYPE CODE TESTS RESULT OUT OF RANGE REFERENCE UNITS LAB L501.1500 6.4-8.2 g/dL Normal T PROT 8.1 LAB L501.1800 3.2-5.0 g/dL Low ALB 3.0 LAB L501.1950 2.2-4.2 g/dL High GLOB 5.1 LAB L501.4100 15-37 U/L High AST 105 LAB L501.4305 45-117 U/L Normal ALK P 93 LAB L501.4405 16-61 U/L High ALT 74 Result Comment: Please note revised ALT reference range effective 2017. LAB L501.4600 0.20-1.00 mg/dL Normal T BILI 0.70 LAB L501.4700 0.00-0.30 mg/dL Normal D BILI 0.15 Performed By: #### L500.2500, L500.3400, L501.4010 #### [facility] [address] [place], [address] TROPONIN-I Collected: 08/07/2017 Status: F Source: [place] 12:05 PM [facility] REPOSITORY Order Comment: 'TROP' Serial specimen #1, #2, #3, or #4: 1 TYPE CODE TESTS RESULT OUT OF RANGE REFERENCE UNITS LAB L501.4010 <0.06 ng/mL Normal < 0.02 TROPONIN-I Result Comment: TROPONIN-I EXPECTED VALUES <0.05 NEGATIVE 0.06 - 0.59 AT RISK OF MO > OR = 0.60 SUGGEST MO Performed By: #### L500.2500, L500.3400, L501.4010 #### [facility] [address] [place], [address] HEMOGLOBIN A1C Collected: 08/07/2017 Status: F Source: [place] 12:05 PM [facility] REPOSITORY TYPE CODE TESTS RESULT OUT OF RANGE REFERENCE UNITS LAB L501.9985 4.2-6.3 % High HGB A1C 8.4 Performed By: #### L501.9985 #### [facility] [address] [place], [address] BNP,B-TYPE NATRIURETIC Collected: 08/07/2017 Status: F Source: [place] PEPTIDE 12:05 PM [facility] REPOSITORY TYPE CODE TESTS RESULT OUT OF RANGE REFERENCE UNITS LAB L503.6620 0-100 pg/mL Normal B-TYPE 8.1 ADELAIDA PEP Performed By: #### L503.6620 #### [facility] [address] [place], [address] URINALYSIS, COMPLETE Collected: 08/07/2017 Status: F Source: [place] 11:55 AM [facility] REPOSITORY Order Comment: Order Date: 08/07/17 COLOR OF URINE MAY AFFECT DIPSTICK RESULTS. How was Urine Obtained? CLEAN CATCH TYPE CODE TESTS RESULT OUT OF RANGE REFERENCE UNITS LAB L400.3000 Yellow COLOR Normal Red LAB L400.3050 Clear Normal CLARITY Sl. Cloudy LAB L400.3200 Normal mg/dl Normal GLUCOSE, UR Normal LAB L400.3300 Negative mg/dL Normal BILIRUBIN URINE Negative LAB L400.3400 Negative mg/dl Normal KETONE UR Negative LAB L400.3465 1.002-1.030 Normal SP.GR. DIPSTX 1.010 LAB L400.3550 5.0 - 8.0 pH UR Normal 6.5 LAB L400.3600 Negative mg/dl High PROT DIPSTX 100 LAB L400.3700 Normal mg/dl Normal UROBILI Normal LAB L400.3750 Negative Normal NITRITE UR Negative LAB L400.3780 Negative /ul High OCCULT BLOOD-UR 250 LAB L400.3800 Negative /ul High LEUK ESTERASE 500 LAB L400.4050 0-5 /hpf WBC Normal 50-100 SEEN LAB L400.4100 0-5 /hpf Normal RBC-UA 25-50 SEEN LAB L400.4150 0-5 /hpf SQUAM Normal EPI 0-5 SEEN LAB L400.4300 None Seen /hpf 0 Normal BACTERIA SEEN LAB L400.4350 <or=2+ /hpf 0 Normal MUCUS, URINE SEEN Performed By: #### L400.0001 #### [facility] [address] [facility] [place], [address] ABDOMEN/PELVIS WITHOUT Observed: 08/07/2017 Status: F Source: [place] CONT 11:53 AM [facility] REPOSITORY [facility] Imaging Services [address] [place] [address] Abdomen/Pelvis without Cont MR#: [id number] Acct: [id number] Name: ADRIAN APONTE Hernan Rep #: [id number] : 1970 M 46 From: Eliazar Funes MD PCP: London Lou MD Status: REG ER Study: Abdomen/Pelvis without Cont Date of Exam: 08/07/17 Exam# [id number] Ordering Dr: Kobe Severino MD STUDY: CT ABDOMEN AND PELVIS WITHOUT CONTRAST REASON FOR EXAM: Male, 46 years old. 2 week history of hematuria and blood clots. RADIATION DOSAGE (If Supplied By Facility): CTDIvol = ( 34.45 ) mGy, DLP = ( 1997.10 ) mGycm TECHNIQUE: Transaxial images were obtained from the dome of the diaphragm to the symphysis pubis without oral contrast, and without intravenous contrast. Sagittal and coronal images were reconstructed. Individualized dose optimization techniques were used for this CT. COMPARISON: None. FINDINGS: The visualized lung bases are unremarkable. The visualized portions of the heart are within normal limits. There is decreased attenuation of the liver consistent with steatosis. Normal gallbladder and extrahepatic biliary system. Normal spleen. Normal pancreas. Normal bilateral adrenal glands. Normal right kidney. Normal left kidney. There is a small hiatal hernia. Normal small intestine. There are scattered colonic diverticula consistent with diverticulosis. The appendix is visualized and appears normal. There is scattered atherosclerotic calcification of the abdominal aorta, without a demonstrated aneurysm. Normal inferior vena cava. Normal retroperitoneum. Normal urinary bladder. Normal abdominal wall. There are degenerative changes of the visualized lumbar spine. Status post right total hip preplacement. CT/Abdomen/Pelvis without Cont IMPRESSION: Fatty infiltration of the liver. Scattered sigmoid diverticula. Electronically Signed: Eliazar Funes MD at 12:50 EST Tel [phone], Service support , CC: London Lou MD; Kobe Severino MD Technical Support Director: Signed CHEST PA AND LATERAL Observed: 08/07/2017 Status: F Source: [place] 11:53 AM [facility] REPOSITORY [facility] Imaging Services [address] [place] [address] Chest PA and Lateral MR#: [id number] Acct: [id number] Name: ADRIAN APONTE Rep #: [id number] : 1970 M 46 From: Eliazar Funes MD PCP: London Lou MD Status: REG ER Study: Chest PA and Lateral Date of Exam: 08/07/17 Exam# [id number] Ordering Dr: Kobe Severino MD STUDY: X-RAY CHEST REASON FOR EXAM: Male, 46 years old. Dyspnea and shortness of breath. TECHNIQUE: PA and lateral views of the chest. COMPARISON: Comparison is made with prior examination dated January 30, 2016. FINDINGS: EKG electrodes are seen. Minimal increased markings are seen in the right middle lobe suggestive of a right middle lobe atelectasis. There is no demonstrated pleural abnormality. Normal size heart. Normal mediastinum and natalia. Normal visualized pulmonary arteries. Normal visualized aortic arch and descending thoracic aorta. Normal visualized thoracic spine. Normal visualized ribs, clavicles, and shoulders. There is no demonstrated abnormality of the visualized soft tissue structures of the upper abdomen. RAD/Chest PA and Lateral IMPRESSION: Minimal increased markings in the right middle lobe. This is suggestive of mild atelectasis. Electronically Signed: Eliazar Funes MD at 12:51 EST Tel [phone], Service support , CC: London Lou MD; Kobe Severino MD Technical Support Director: Signed ALLERGIES ALLERGIES DATE TYPE / CODE NAME / CODE REACTION SEVERITY SOURCE 04/16/2018 Drug quinine/W70004 Hives Unknown [facility] Allergy/4160 2934(RXNORM) [facility] 29495(SNOMED Repository CT) 01/01/2015 DRUG QUININE HIVES [facility] INGREDI/4195 [facility] [address]56(SNOMED Repository CT) ENCOUNTERS ENCOUNTERS ADMIT/DISCHARGE ACCOUNT NUMBER ADMITTING ENCOUNTER LOCATION SOURCE CLASS 05/28/2018/05/28/[id number] ding:SDCRoom Repository : AC14 04/16/2018/04/16/[id number] ding:SDCRoom Repository : AC08 03/12/2018 [id number] [facility] ding:[facility] Repository 01/29/2018/01/30/20 [id number] Ambulatory [address] ding:SDC Repository 12/21/2017/12/22/19 [id number] Cordell, Ambulatory [address] ding:SH.[facility] Repository 12/21/2017 [id number] Ambulatory [address] [place] [address] Repository 12/11/2017/12/12/19 [id number] Ambulatory [address] ding:SDCRoom Repository : AC06 11/09/2017/11/10/19 [id number] Ambulatory [address] Repository lding:Nathan sfield 09/07/2017/09/13/19 [id number] Ambulatory BMSBuilding: [address] Repository 09/07/2017/09/13/19 [id number] Ambulatory BMSBuilding: [address] Repository 09/07/2017 [id number] Mayelin, Ambulatory BMSBuilding: Ravenna Waqas BMS.[facility]ly [facility] Repository 09/07/2017 [id number] Mayelin, Ambulatory BMSBuilding: [place] Waqas BMS.[facility] Repository 09/07/2017/09/13/19 [id number] Mayelin, Inpatient [address] ding:AJ1Asep Repository : LM394Arx: 1 09/07/2017 [id number] Mayelin, Ambulatory BMSBuilding: [place] Waqas BMS.[facility] Repository 09/05/2017/09/06/19 [id number] Ambulatory [address] Repository 09/05/2017/09/06/19 [id number] Ambulatory [address] Repository 08/23/2017 [id number] Sulaiman, Ambulatory BMSBuilding: Ravenna Ghasem BMS.[facility]ly [facility] Repository 08/23/2017/08/30/19 [id number] Ambulatory BMSBuilding: [place] 18 BMS.CF.formerly [facility] Repository 08/23/2017 [id number] Sulaiman, Ambulatory BMSBuilding: [place] Ghasem BMS.[facility] Repository 08/23/2017 [id number] Ashelfah, Ambulatory BMSBuilding: Bianka Ghasem BMS.[facility]ly [facility] Repository 08/23/2017 [id number] Ashelfah, Ambulatory BMSBuilding: Binaka Ghasem BMS.[facility]ly [facility] Repository 08/23/2017 [id number] Ashelfah, Ambulatory BMSBuilding: Bianka Ghasem BMS.[facility]ly [facility] Repository 08/23/2017 [id number] Ashelf, Ambulatory BMSBuilding: Bianka Ghasem BMS.[facility]ly [facility] Repository 08/23/2017 [id number] Ashelfah, Ambulatory BMSBuilding: Ravenna Ghasem BMS.[facility] Repository 08/23/2017/08/30/19 [id number] Ashelfah, Inpatient Ravenna Bianka 18 Ghasem Encounter [facility] ding:DP1Mkxt Repository : PG664Wsa: 1 08/07/2017 [id number] Kittoe, Ambulatory BMSBuilding: Ravenna Sammy BMS.[facility]ly [facility] Repository 08/07/2017 [id number] [place], Ambulatory BMSBuilding: Bianka Sammy BMS.[facility]ly [facility] Repository 08/07/2017/08/09/19 [id number] [place], Inpatient Ravenna Ravenna 18 Sammy Encounter [facility] ding:GY7Fuaf Repository : CT849Obg: 1 08/07/2017 [id number] Kitt[place], Ambulatory BMSBuilding: Bianka Sammy BMS.[facility]ly [facility] Repository PAYERS PAYERS ENCOUNTER GUARANTOR PAYER SUBSCRIBER SOURCE 05/28/2018 ADRIAN APONTE Primary ADRIAN Carl[place] [address] Insurance:[place] Bynum: [facility] [id number] Hospital [address]Nce: 419) PLANPolicy Number: Repository [phone] (HP) [id number] e Date:1413-01-80PS [address] [facility] [address]JZ: 05/28/2018 Secondary NOT GIVENBILL Carlton Insurance:SELF PAY [facility] Number: Effective Repository Date:2018-05-18 04/16/2018 ADRIAN APONTE Primary ADRIAN [place] [address] Insurance:LAURENHernan Valentin: [facility] [id number] Hospital [address]Eeb: (419) PLANPolicy Number: Repository [phone] () [id number] e Date:9012-64-84SI [address] [place] [address] 19474KR: 04/16/2018 Secondary NOT GIVENUNK Bianka Insurance:SELF PAY [facility] Number: Effective Repository Date:2018-04-11 03/12/2018 ADRIAN APONTE Primary ADRIAN [address] [address] Insurance:LAURENHernan Valentin: [facility] [id number] Hospital 305[address]Wac: (419) PLANPolicy Number: Repository [phone] () [id number] e Date:[id number] [address]FV: 03/12/2018 Secondary NOT GIVENUNK Bianka Insurance:SELF PAY [facility] Number: Effective Repository Date:2018-03-05 01/29/2018 ADRIAN APONTE Primary ADRIAN [place] [address] Insurance:DEEPAKJEFFERY Bynum: [facility] [id number] Hospital 816[address]Cqx: (419) PLANPolicy Number: Repository [phone] () [id number] e Date:[id number] [address]QU: 01/29/2018 Secondary NOT GIVENUNK [place] Insurance:SELF PAY [facility] Number: Effective Repository Date:2018-01-22 12/21/2017 ADRIAN APONTE Primary ADRIAN APONTE Lali MILESB: Insurance:[place] MILESB: [facility] [id number] [place], [place] [address]Policy Number: GILBERTODEJA Repository [facility] Date:2017-12-07 - [place], [place] 5881-04-92[facility] [address]Kfo: Name::[id number] [place] [phone]: [address] [place] [address] (HP) [place] [address]KG: [phone]) (HP) [phone] () 12/21/2017 ADRIAN TSEB: Insurance:La UGARTE: [facility] [id number] [facility]ository [facility] [place], [place] [id number] [place] [id number]: e Date:Plan [id number]: Name:[facility] (HP) [address] [place] [address] () [address]CT: 12/11/2017 ADRIAN APONTE Primary ADRIAN Carlton Jr.[address] [place] [address] Insurance:[place] Bynum: [facility] [id number] Hospital 60[address]Xff: (440) PLANPolicy Number: Repository [phone] (HP) [id number] e Date:7615-50-72BP [address] [place] [address]WP: 12/11/2017 Secondary NOT GIVENBILL Carlton Insurance:SELF PAY [facility] Number: Effective Repository Date:2017-12-01 11/09/2017 ADRIAN MILESB: Insurance:LA HERNANDEZ: [facility] [id number] System [facility] PLANPolicy Number: [id number] Repository [facility] Effective [facility] Date:2017-08-31 - [place] 6214-85-74[place] 1947203[address]Tel: Name:CD:[id number] [place] [phone]: [address] [place] [address], () [place] [address]PX: [phone] (HP) [phone] () 09/07/2017 ADRIAN APONTE Primary ADRIAN APONTE Raven[place] Jr[address] Insurance:LA Bynum: [facility] [id number] Hospital [address]Qkx: (419) PLANPolicy Number: Repository [phone] () [id number] e Date:1868-39-24YQ [address] [address]YR: 09/07/2017 Secondary NOT GIVENUNK Bianka Insurance:SELF PAY [facility] Number: Effective Repository Date:2017-09-07 09/07/2017 ADRIAN APONTE Primary ADRIAN Montoya BRITTNEYHARVINDER Lundbergoster Jr.[address] Insurance:[place] Bynum: [facility] [id number] Hospital [address]Jqt: (419) PLANPolicy Number: Repository [phone] () [id number] e Date:0561-82-61ID [address] [address]DJ: 09/07/2017 Secondary NOT GIVENUNK [place] Insurance:SELF PAY [facility] Number: Effective Repository Date:2017-09-07 09/07/2017 ADRIAN Hernan LUGOHARVINDER Primary ADRIAN APONTE Bianka Jr[address] Insurance:[place] Bynum: [facility] [id number] Hospital [address]Ikm: (419) PLANPolicy Number: Repository [phone] () [id number] e Date:9470-44-90LX [address] [place] [address]KI: 09/07/2017 Secondary NOT GIVENUNK [place] Insurance:SELF PAY [facility] Number: Effective Repository Date:2017-09-07 09/07/2017 ADRIAN APONTE Primary ADRIAN Carlton Jr[address] Insurance:[place] Bynum: [facility] [id number] Hospital [address]Ldp: (419) PLANPolicy Number: Repository [phone] () [id number] e Date:0563-25-89XM [address] [address]SP: 09/07/2017 Secondary NOT GIVENUNK Bianka Insurance:SELF PAY [facility] Number: Effective Repository Date:2017-09-07 09/07/2017 ADRIAN APONTE Primary ADRIAN Carlton Jr[address] Insurance:[place] Bynum: [facility] [id number] Hospital 116[address]Xop: (419) PLANPolicy Number: Repository [phone] () [id number] e Date:0850-52-31IX [address] [place] [address]MP: 09/07/2017 Secondary NOT GIVENUNK Bianka Insurance:SELF PAY [facility] Number: Effective Repository Date:2017-09-07 09/07/2017 ADRIAN APONTE Primary ADRIAN Carlton Jr[address] Insurance:[place] Bynum: [facility] [id number] [facility] [address]Jjm: (419) PLANPolicy Number: Repository [phone] () [id number] e Date:2458-18-09NP [address] [place] [address]EG: 09/07/2017 Secondary NOT GIVENUNK [place] Insurance:SELF PAY [facility] Number: Effective Repository Date:2017-09-07 08/23/2017 ADRIAN APONTE Primary ADRIAN Carlton Jr.4892 JOSE RAUL Insurance:[place] Bynum: [facility] [id number] 19808Owd: (419) PLANPolicy Number: Repository [phone] (HP) [id number] e Date:[id number] [address] [place] [address] 20174WY: 08/23/2017 Secondary NOT GIVENUNK [place] Insurance:SELF PAY [facility] Number: Effective Repository Date:2017-08-23 08/23/2017 ADRIAN APONTE Primary ADRIAN Lundbergoster Jr.4892 JOSE RAUL Insurance:LAURENE : [facility] [id number] [address]Zyw: (419) PLANPolicy Number: Repository [phone] () [id number] e Date:[id number] [address] [place] [address] 82683QF: 08/23/2017 Secondary NOT GIVENUNK [place] Insurance:SELF PAY [facility] Number: Effective Repository Date:2017-08-23 08/23/2017 ADRIAN APONTE Primary ADRIAN Lundbergoster Jr.4892 JOSE RAUL Insurance:[place] Bynum: [facility] [id number] 91939Yej: (419) PLANPolicy Number: Repository [phone] () [id number] e Date:[id number] [address] [place] [address] 06017XQ: 08/23/2017 Secondary NOT GIVENUNK [place] Insurance:SELF PAY [facility] Number: Effective Repository Date:2017-08-23 08/23/2017 ADRIAN Hernan APONTE Primary ADRIAN Lundbergoster Jr.4892 JOSE RAUL Insurance:LAURENE Valentin: [facility] [id number] [address]Ita: (419) PLANPolicy Number: Repository [phone] () [id number] e Date:[id number] [address] [place] [address] 62172GG: 08/23/2017 Secondary NOT GIVENUNK [place] Insurance:SELF PAY [facility] Number: Effective Repository Date:2017-08-23 08/23/2017 ADRIAN APONTE Primary ADRIAN Carlton Jr.4892 JOSE RAUL Insurance:[place] Bynum: [facility] [id number] [address]Dlc: (419) PLANPolicy Number: Repository [phone] () [id number] e Date:[id number] [address] [address]LV: 08/23/2017 Secondary NOT GIVENUNK [place] Insurance:SELF PAY [facility] Number: Effective Repository Date:2017-08-23 08/23/2017 ADRIAN APONTE Primary ADRIAN Carlton Jr.4892 JOSE RAUL Insurance:[place] Bynum: [facility] [id number] 114[address]Oyl: (419) PLANPolicy Number: Repository [phone] () [id number] e Date:[id number] [address] [place] [address] 82331WY: 08/23/2017 Secondary NOT GIVENUNK [place] Insurance:SELF PAY [facility] Number: Effective Repository Date:2017-08-23 08/23/2017 ADRIAN APONTE Primary ADRIAN Carlton Jr.4892 JOSE RAUL Insurance:[place] Bynum: [facility] [id number] 23766Vsi: (419) PLANPolicy Number: Repository [phone] () [id number] e Date:[id number] [address] [place] [address] 51294CU: 08/23/2017 Secondary NOT GIVENUNK [place] Insurance:SELF PAY [facility] Number: Effective Repository Date:2017-08-23 08/23/2017 ADRIAN APONTE Primary ADRIAN Carlton Jr.4892 JOSE RAUL Insurance:[place] Bynum: [facility] [id number] [address]Njg: (419) PLANPolicy Number: Repository [phone] (HP) [id number] e Date:[id number] [address] [address]TQ: 08/23/2017 Secondary NOT GIVENUNK [place] Insurance:SELF PAY [facility] Number: Effective Repository Date:2017-08-23 08/23/2017 ADRIAN LUGOBERG Primary ADRIAN APONTE [place] Jr.4892 JOSE RALU Insurance:[place] Bynum: [facility] [id number] [address]Bah: (419) PLANPolicy Number: Repository [phone] () [id number] e Date:[id number] [address] [address]UN: 08/23/2017 Secondary NOT GIVENUNK Bianka Insurance:SELF PAY [facility] Number: Effective Repository Date:2017-08-23 08/07/2017 ADRIAN Montoya Primary NOT GIVENUNK [place] [id number] JOSE RAUL Insurance:SELF PAY [facility] [id number]: (419) Number: Effective Repository [phone] () Date:2017-08-07 08/07/2017 ADRIAN Montoya Primary NOT GIVENUNK [place] [id number] JOSE RAUL Insurance:SELF PAY [facility] [id number]: (419) Number: Effective Repository [phone] () Date:2017-08-07 08/07/2017 ADRIAN APONTE Primary NOT GIVENUNK [place] Jr.4892 JOSE RAUL Insurance:SELF PAY [facility] [id number]: (419) Number: Effective Repository [phone] () Date:2017-08-07 08/07/2017 ADRIAN APONTE Primary NOT GIVENUNK [place] Jr.4892 JOSE RAUL Insurance:SELF PAY [facility] [id number]: (419) Number: Effective Repository [phone] () Date:2017-08-07
== END 2018-05-28 09:32 | disposition home or self-care (01) ==
LOC: SDC 06:39 → AC 06:41
PROVIDERS: Family Provider Family Medicine; PCP Family Medicine; Referring Provider Anesthesiology Pain Medicine; Visit Provider Anesthesiology Pain Medicine
PROC: (CPT 64635; principal; 2018-05-28 08:05)
DX: M47.817 Spondylosis without myelopathy or radiculopathy, lumbosacral region (principal); M51.37 Other intervertebral disc degeneration, lumbosacral region; M46.96 Unspecified inflammatory spondylopathy, lumbar region; I10 Essential (primary) hypertension; K21.9 Gastro-esophageal reflux disease without esophagitis; F32.9 Major depressive disorder, single episode, unspecified; F41.9 Anxiety disorder, unspecified; E11.9 Type 2 diabetes mellitus without complications; F17.210 Nicotine dependence, cigarettes, uncomplicated; Z96.641 Presence of right artificial hip joint; Z86.711 Personal history of pulmonary embolism; Z79.01 Long term (current) use of anticoagulants; Z79.891 Long term (current) use of opiate analgesic; Z79.4 Long term (current) use of insulin; Z79.899 Other long term (current) drug therapy
CPT/HCPCS: 64635; 64636 ×2; 72110; 76000; 82962; J7120

== ENCOUNTER 2018-07-16 07:42 | Day surgery (SDC) | payer MEDICAID, SELFPAY ==
[2018-07-16 08:05] VITALS: BP 149/85; PULSE 80; RESP 18; TEMP 37.1; O2SAT 98; BMI 59.3
[2018-07-16 08:21] LABS: Bedside Glucose 137 mg/dL (70-110)
[2018-07-16] MEDS: MethylPREDNISolone Acetate 80 MG/ML Vial (09:14)
[2018-07-16] MEDS: Bupivacaine 0.25% 30 ML Vial (09:14)
--- NOTE | 2018-07-16 09:20 | RAD_ITS ---
PROCEDURE: Caudal block. DATE OF EXAMINATION: July 16, 2018. INDICATION: Male, 47 years old. Chronic back pain. FLUOROSCOPY TIME (if supplied): (0:21) minutes/seconds. 2 intraoperative views were obtained. Intraoperative imaging provided for caudal block. RAD/Fluor Guidance for Spine Inj IMPRESSION: Intraoperative imaging provided for caudal block. Electronically Signed: Eliazar Funes MD at 10:44 EST , Service support ,
[2018-07-16 09:21] VITALS: BP 122/73; BP 149/85; PULSE 79; RESP 16; TEMP 36.3; O2SAT 94
[2018-07-16 09:25] VITALS: BP 123/70; BP 149/85; PULSE 77; RESP 16; O2SAT 92
[2018-07-16 09:30] VITALS: BP 120/76; BP 149/85; PULSE 80; RESP 16; O2SAT 92
[2018-07-16 09:35] VITALS: BP 105/58; BP 149/85; PULSE 77; RESP 16; TEMP 36.6; O2SAT 93
[2018-07-16 09:51] VITALS: BP 149/85
--- NOTE | 2018-07-16 11:32 | OP.PCM_ITS ---
Problem List (1) Degeneration of lumbosacral intervertebral disc Status: Chronic (2) Lumbosacral radiculopathy Status: Chronic Report of Operation Date of Procedure: 07/16/18 Pre-Operative Diagnosis: Lumbosacral radiculopathy, lumbosacral degenerative disc disease, lumbosacral spinal stenosis. Post-Operative Diagnosis: Lumbosacral radiculopathy, lumbosacral degenerative disc disease, lumbosacral spinal stenosis. Surgery/Procedure Performed:: Caudal epidural steroid injection Description of Surgical Findings:: PROCEDURE: Caudal epidural steroid injection PREOPERATIVE DIAGNOSIS: Lumbosacral radiculopathy, lumbosacral degenerative disc disease, lumbosacral spinal stenosis POSTOPERATIVE DIAGNOSIS: Lumbosacral radiculopathy, lumbosacral degenerative disc disease, lumbosacral spinal stenosis ANESTHESIA: MAC COMPLICATIONS: None BLOOD LOSS: Minimal PROCEDURE IN DETAIL: History and physical today was reviewed. Risks and benefits of the procedure were explained. The patient understood, agreed to our procedure, and informed consent was obtained. IV inserted per routine protocol. The patient was taken to the operating room, placed in a prone position with a pillow positioned underneath the abdomen. The lower back and tailbone area was prepped and draped in a sterile fashion using iodine x3 under fluoroscopy guidance on the lateral view the caudal space was identified the skin and subcutaneous tissue anesthetized approximately 3 cc of 1% lidocaine using a 25-gauge regular needle under direct visualization fluoroscopy in a lateral view using a 22-gauge 3-1/2 inch spinal needle the needle was advanced via the skin through the sacral hiatus tip of the needle passed through the sacrococcygeal ligament advanced approximately S4 area after negative aspiration for blood or CSF a total of 3 cc of contrast were injected to confirm correct placement of the needle as well as cephalad spread the spread was followed to approximately L5 area after confirmation of AP as well as lateral view and repeated negative aspiration a total of 15 cc of preservative- free 0.125% Marcaine with 80 mg of Depo-Medrol were injected easily. The needles were then removed intact. The patient experienced no signs or symptoms intrathecal, intravascular injection. The patient experienced no paraesthesia. The procedure was completed without any eric arent difficult, any complication. The patient appeared to tolerate well. ASSESSMENT AND PLAN: This is a 47-year-old male with lumbosacral radiculopathy lumbosacral degenerative disc disease lumbosacral spinal stenosis status post caudal epidural steroid injection patient would continue his current medications the patient will follow in approximately 2 weeks for reevaluation.
== END 2018-07-16 09:55 | disposition home or self-care (01) ==
LOC: SDC 07:42 → AC 07:44
PROVIDERS: Family Provider Family Medicine; PCP Family Medicine; Referring Provider Anesthesiology Pain Medicine; Visit Provider Anesthesiology Pain Medicine
PROC: 3E0S3BZ Introduction of Anesthetic Agent into Epidural Space, Percutaneous Approach (ICD-10-PCS; CPT 62282; principal; 2018-07-16 09:15)
DX: M51.17 Intervertebral disc disorders with radiculopathy, lumbosacral region (principal); M48.07 Spinal stenosis, lumbosacral region; I25.10 Atherosclerotic heart disease of native coronary artery without angina pectoris; I10 Essential (primary) hypertension; K21.9 Gastro-esophageal reflux disease without esophagitis; F17.200 Nicotine dependence, unspecified, uncomplicated; Z79.4 Long term (current) use of insulin; Z79.899 Other long term (current) drug therapy
CPT/HCPCS: 62323; 64483; 77003; 82962; J7120; J3490

== ENCOUNTER 2018-08-27 06:50 | Day surgery (SDC) | payer MEDICAID, SELFPAY ==
[2018-08-21 14:32] VITALS: BMI 57.9
[2018-08-27 07:16] VITALS: BP 133/68; PULSE 79; RESP 16; TEMP 36.8; O2SAT 97; BMI 57.6
--- NOTE | 2018-08-27 08:00 | RAD_ITS ---
FLUOROSCOPIC GUIDED LUMBAR SPINE BLOCK, LUMBAR FACET, L3-S1, RIGHT PAIN BLOCK INJECTION: REASON FOR EXAM: Male, 47 years old. Lower back pain FLUOROSCOPY TIME (if supplied): 14.3S 11.31MGY TECHNIQUE: Intraoperative fluoroscopy. 5 intraoperative views. COMPARISON: None. FINDINGS: Degenerative changes are noted in the lumbar spine RAD/Lumbar Spine 2 or 3 Views IMPRESSION: Successful lumbar spine fluoroscopic guided injection. Electronically Signed: Chapo Hernandez, at 14:29 EDT Tel , Service support ,
[2018-08-27] MEDS: MethylPREDNISolone Acetate 80 MG/ML Vial (08:19)
[2018-08-27] MEDS: Bupivacaine 0.25% 30 ML Vial (08:19)
--- NOTE | 2018-08-27 11:13 | OP.PCM_ITS ---
Problem List (1) Degeneration of lumbosacral intervertebral disc Status: Chronic (2) Lumbosacral spondylosis Status: Chronic Report of Operation Date of Procedure: 08/27/18 Pre-Operative Diagnosis: Lumbosacral spondylosis, lumbosacral degenerative disc disease, lumbar facet arthropathy Post-Operative Diagnosis: Lumbosacral spondylosis, lumbar sacral degenerative disc disease, lumbar facet arthropathy Surgery/Procedure Performed:: Right-sided lumbar facet steroid injection L3, L4, L5, S1 Description of Surgical Findings:: PROCEDURE: Right-sided lumbar facet steroid injection L3, L4, L5, S1 PREOPERATIVE DIAGNOSIS: Lumbosacral spondylosis, lumbar sacral degenerative disc disease, and lumbar facet arthropathy POSTOPERATIVE DIAGNOSIS: Lumbosacral spondylosis, lumbar sacral degenerative disc disease, and lumbar facet arthropathy ANESTHESIA: Local COMPLICATIONS: None BLOOD LOSS: Minimal PROCEDURE IN DETAIL: History and physical today was reviewed. Risks and benefits of the procedure were explained. The patient understood, agreed to our procedure, and informed consent was obtained. IV inserted per routine protocol. The patient was taken to the operating room, placed in a prone position with a pillow positioned underneath the abdomen. The right side of his lower back was prepped and draped in a sterile fashion using iodine x3. Under fluoroscopy guidance, on AP view, L3 through S1 vertebral bodies were visualized. Skin and subcutaneous tissues were anesthetized with approximately 5 mL of 1% lidocaine using a 25-gauge regular needle. Under direct visualization with fluoroscopy at approximately 25-degree angle, starting on the right L3, ending on the right S1, passing through the L4-L5 using a 22-gauge 5-inch spinal needle, the needle was advanced via the skin. The tip of the needle was maneuvered and directed towards the superior and medial gutter of the transverse process at the vicinity of the medial branch. Once the tip of the needle was in contact with the bone, the needle pulled approximately 2 mm off the bone. After negative aspiration of blood with CSF and confirmation of AP as well as oblique view, a total of 8 mL of preservative-free 0.25% Marcaine with 80 mg of Depo- Medrol was injection in divided doses between those 4 levels. The needles were then removed intact. The patient experienced no signs or symptoms intrathecal, intravascular injection. The patient experienced no paraesthesia. The procedure was completed without any apparent difficult, any complication. The patient appeared to tolerate well. ASSESSMENT AND PLAN: This is a 47-year-old male with Lumbosacral spondylosis, lumbar sacral degenerative disc disease,and lumbar facet arthropathy, status post right-sided lumbar facet steroid injection L3 through S1. The patient will continue his current medications. The patient will follow in approximately 2 weeks for reevaluation.
[2018-08-28 15:26] LABS: Bedside Glucose 129 mg/dL (70-110)
== END 2018-08-27 08:36 | disposition home or self-care (01) ==
LOC: SDC 06:51 → AC 06:53
PROVIDERS: Family Provider Family Medicine; PCP Family Medicine; Referring Provider Anesthesiology Pain Medicine; Visit Provider Anesthesiology Pain Medicine
PROC: 3E0T3BZ Introduction of Anesthetic Agent into Peripheral Nerves and Plexi, Percutaneous Approach (ICD-10-PCS; CPT 1922; principal; 2018-08-27 07:55)
DX: M47.897 Other spondylosis, lumbosacral region (principal); M51.37 Other intervertebral disc degeneration, lumbosacral region; M46.86 Other specified inflammatory spondylopathies, lumbar region; I10 Essential (primary) hypertension; F17.210 Nicotine dependence, cigarettes, uncomplicated; Z86.711 Personal history of pulmonary embolism; Z79.01 Long term (current) use of anticoagulants; Z79.891 Long term (current) use of opiate analgesic; Z79.899 Other long term (current) drug therapy
CPT/HCPCS: 64493; 64494; 64495; 64483; 72100; 82962

== ENCOUNTER → 2018-08-28 14:11 | Outpatient (CLI) | payer MEDICAID, SELFPAY ==
[2018-08-21 14:32] VITALS: BMI 57.9
[2018-08-27 07:16] VITALS: BMI 57.6
[2018-08-27 10:03] LABS: AST(SGOT) 63 U/L (15-37); Alanine Aminotransfer ALT/SGPT 63 U/L (16-61); Albumin, Serum 3.1 g/dL (3.2-5.0); Alkaline Phosphatase 74 U/L (45-117); Bilirubin, Direct 0.11 mg/dL (0.00-0.30); Cholesterol 152 mg/dL (200); Globulin 4.6 g/dL (2.2-4.2); High Density Lipoprotein 30 mg/dL; Protein, Total 7.7 g/dL (6.4-8.2); Triglycerides 139 mg/dL; Very Low Density Lipoprotein 28 mg/dL (5-40)
--- NOTE | 2018-08-28 14:12 | CT_ITS ---
STUDY: CTA CHEST REASON FOR EXAM: Male, 47 years old. Shortness of breath hypertension history of PE RADIATION DOSAGE (If Supplied By Facility): CTDIvol = ( 28.76 ) mGy, DLP = ( 952.31 ) mGycm TECHNIQUE: The examination was performed with the intravenous administration of Isovue 370 100 IV. Post-processing of the angiographic images was performed, with multiplanar reformation and 3D reconstruction. This study is grainy secondary to the patient's large body habitus. Individualized dose optimization techniques were used for this CT. COMPARISON: January 29, 2016 CT scan chest FINDINGS: There is limited enhancement of the main pulmonary artery and right and left pulmonary arteries. There is limited enhancement of the bilateral peripheral pulmonary arteries. There is no demonstrated pulmonary embolism. Normal thoracic aorta and visualized great vessels. There is no demonstrated aortic dissection. Normal heart and pericardium. There is an AP window lymph node measuring 1.2 cm. This is similar to the prior study. There is a 9 mm AP window lymph node. Normal hilar regions. Normal visualized trachea and bronchi. There few scattered areas of what appear to be air trapping. No focal consolidation or pleural effusion. There is a focal noncalcified nodule within the lingula measuring 6.9 mm newly visualized since 2015 but stable since August 07, 2017. Axial image 137 series 2. Normal pleura. Normal chest wall structures. There are degenerative changes of thoracic spine. The liver is enlarged. The liver is fatty infiltrated. There is moderate splenomegaly. CT/CTA Chest W/WO Contrast IMPRESSION: Limited Study due to body habitus. No evidence of large centrally located clot. No evidence of focal consolidation or pleural effusion. Hepatomegaly. Hepatic steatosis. Stable 6.9 mm noncalcified nodule within the left lingula. This may represent sequelae of prior inflammatory change. However given the new visualization since January 29, 2016 recommend serial follow-up in 6 months to ensure stability. Electronically Signed: Niharika Gonzalez MD at 15:37 EDT Tel , Service support ,
[2018-08-28 14:26] LABS: CREATININE FINGERSTICK 1.2 mg/dL (0.70-1.30); EGFR FINGERSTICK > 60.0000 mL/min (>60)
== END ==
PROVIDERS: Family Provider Family Medicine; PCP Family Medicine; Referring Provider Internal Medicine Cardiovascular Disease; Visit Provider Internal Medicine Cardiovascular Disease
DX: I27.20 Pulmonary hypertension, unspecified (principal); G47.33 Obstructive sleep apnea (adult) (pediatric); F17.201 Nicotine dependence, unspecified, in remission; R06.00 Dyspnea, unspecified; Z86.711 Personal history of pulmonary embolism; E11.9 Type 2 diabetes mellitus without complications; Z79.4 Long term (current) use of insulin; R07.9 Chest pain, unspecified; R06.09 Other forms of dyspnea
CPT/HCPCS: 36415; 71275; 80061; 80076; Q9967

== ENCOUNTER → 2018-08-31 12:43 | Outpatient (CLI) | payer MEDICAID, SELFPAY ==
[2018-08-21 14:32] VITALS: BMI 57.9
[2018-08-27 07:16] VITALS: BMI 57.6
--- NOTE | 2018-08-31 12:46 | ECHOD_ITS ---
Reason For Study: Chest Pain Procedure This was a 2D Doppler, Color Flow transthoracic echocardiogram. The study was technically difficult. Contrast injection was performed. Exam performed in department. Left Ventricle Normal size and thickness. The estimated ejection fraction is 65 %. Normal diastology for age. No regional wall motion abnormalities noted. Right Ventricle Normal size and thickness. Normal systolic function. Atria Normal left atrium. Normal right atrium. Normal atrial septum. Mitral Valve The mitral valve is structurally normal. No prolapse or stenosis seen. Trivial mitral valve insufficiency. Tricuspid Valve Normal tricuspid valve. Unable to estimate RV systolic pressure due to inadequate jet, pulmonary artery pressure probably normal. Aortic Valve Normal aortic valve. Trisinus/trileaflet aortic valve. Pulmonic Valve Normal pulmonic valve. Great Vessels Normal aortic root. Normal arch. Normal inferior vena cava. Inferior vena cava collapse with sniff. Pericardium/Pleural No pericardial effusion. Medication Definity0.6ml given slow IV push to enhance endocardial definition. MMode/2D Measurements & Calculations LVIDd: 6.1 cm IVSd: 1.1 cm Ao root diam: 3.0 cm LVIDs: 4.4 cm LVPWd: 1.2 cm RVDd: 5.1 cm FS: 27.7 % LAV(MOD-bp): 65.6 ml LVAd ap4: 39.9 cm2 SV(MOD-sp4): 94.7 ml LAV(MOD-bp) Indexed: 22.8 ml/m2 EDV(MOD-sp4): 146.2 ml LAV(MOD-sp2): 71.0 ml EDV(sp4-el): 155.0 ml LAV(MOD-sp4): 56.7 ml LVAs ap4: 21.2 cm2 ESV(MOD-sp4): 51.5 ml ESV(sp4-el): 54.1 ml EF(MOD-sp4): 64.8 % EF(sp4-el): 65.1 % SV(sp4-el): 100.9 ml LA A4 area: 20.4 cm2 LA dimension(2D): 4.9 cm RA A4 area: 15.9 cm2 Doppler Measurements & Calculations MV E max jeanmarie: 110.9 cm/sec Lat Peak E' Jeanmarie: 13.7 cm/sec Med Peak E' Jeamnarie: 9.4 cm/sec MV A max jeanmarie: 80.0 cm/sec E/E' lat: 8.1 E/E' med: 11.9 MV E/A: 1.4 Ao V2 max: 147.2 cm/sec LV V1 max: 124.0 cm/sec PA V2 max: 94.5 cm/sec Ao max P.7 mmHg LV V1 max P.1 mmHg Ao V2 mean: 112.0 cm/sec Ao mean P.3 mmHg Ao V2 VTI: 30.3 cm Interpretation Summary The estimated ejection fraction is 65 %. Normal diastology for age. Trivial mitral valve insufficiency. Unable to estimate RV systolic pressure due to inadequate jet, pulmonary artery pressure probably normal. Compared to echo report dated 01/30/2016, LV Function has remained the same, LVH has normalized. The study was technically difficult. Contrast injection was performed. Ordering Physician: Shakeel Angela Referring Physician: London Barkley Performed By: Wilma Garza RDCS, STEFANIAT
== END ==
PROVIDERS: Family Provider Family Medicine; PCP Family Medicine; Referring Provider Internal Medicine Cardiovascular Disease; Visit Provider Internal Medicine Cardiovascular Disease
DX: I27.20 Pulmonary hypertension, unspecified (principal); R07.9 Chest pain, unspecified; R06.09 Other forms of dyspnea; Z86.711 Personal history of pulmonary embolism
CPT/HCPCS: 93306; Q9957; A4216; C8929

== ENCOUNTER → 2018-09-11 12:18 | Outpatient (CLI) | payer MEDICAID, SELFPAY ==
[2018-08-21 14:32] VITALS: BMI 57.9
[2018-08-31 13:56] VITALS: BMI 58.3
--- NOTE | 2018-09-11 12:20 | STE_ITS ---
Reason For Study: CHEST PAIN Stress Results Protocol: Dobutamine with definity Maximum Predicted HR: 172 bpm Target HR: 146 bpm % Maximum Predicted HR: 97 % DurationHeart Rate Stage (mm:ss) (bpm) BP Dose Comment BASELINE 97 149/92 2CC DEFINITY STAGE 1 3:11 113 154/9310.001CC DEEFINITY STAGE 2 3:00 131 150/9320.00 STAGE 3 3:00 139 145/7830.00JAW PAIN, 0.5 MG ATROPINE TOTAL STAGE 4 2:58 166 104/7240.002 CC DEFINITY RECOVERY 108 116/74 1 CC DEFINITY Stress Duration: 12:09 mm:ss Maximum Stress HR: 166 bpm Baseline Echocardiogram Findings The estimated ejection fraction is 65 %. Stress Echo Wall motion Data Resting WM Intermediate WM Stress WM Resting Wall Motion Wall Motion Stress No regional wall motion No regional wall motion abnormalities noted. abnormalities noted. EKG Data The baseline ECG displays normal sinus rhythm. The patient was titrated from 10 mcg to a maximum of 40 mcg of dobutamine during the stress. The maximum heart rate attained was 169 beats per minute. This was 98% of maximum predicted heart rate. During dobutamine infusion, there were no ST or T wave changes noted to suggest ischemia. Interpretation Summary The estimated ejection fraction is 65 %. Normal, adequate, dobutamine echocardiogram. Negative for ischemia by EKG and echocardiographic criteria. Patient did develop chest pain during dobutamine which is a nonspecific finding. During infusion the patient had rare PVCs and a transient episode of ventricular bigeminy which is also a nonspecific finding with dobutamine. These rhythms improved with dobutamine infusion. Appropriate blood pressure response to dobutamine. Test terminated due to the attainment of target heart rate and dyspnea. Final LVEF is 75%. Recommend clinical correlation or alternative mode of testing if coronary occlusive disease is strongly suspected. No complications. The study was technically difficult. Contrast injection was performed. Ordering Physician: Shakeel Angela Referring Physician: Shakeel Angela Performed By: Sybil Hudson [facility]
== END ==
PROVIDERS: Family Provider Family Medicine; PCP Family Medicine; Referring Provider Internal Medicine Cardiovascular Disease; Visit Provider Internal Medicine Cardiovascular Disease
DX: I51.7 Cardiomegaly (principal); I27.20 Pulmonary hypertension, unspecified; R07.9 Chest pain, unspecified; R06.09 Other forms of dyspnea
CPT/HCPCS: 93017; 93350; J7040; Q9957; A4216; C8928

== ENCOUNTER 2018-09-24 10:16 | Day surgery (SDC) | payer MEDICAID, SELFPAY ==
[2018-09-12 13:08] VITALS: BMI 58.6
[2018-09-24] VITALS (7 sets, daily range): BP systolic 105–142; BP diastolic 54–82; PULSE 69–77; RESP 16–18; TEMP 36.5–36.7; O2SAT 93–98; BMI 58.8
--- NOTE | 2018-09-24 11:30 | RAD_ITS ---
PROCEDURE: Right L3 S1 facet joint block. DATE OF EXAMINATION: September 24, 2018. INDICATION: Male, 47 years old. Severe lower back pain. FLUOROSCOPY TIME (if supplied): (0:25) minutes/seconds. 3 cone-down views are obtained. Intraoperative imaging provided for right L3-S1 facet joint block. RAD/L/S Spine Min 4 Views IMPRESSION: Fluoroscopic services provided for right L3 S1 facet joint block. Electronically Signed: Eliazar Funes, at 15:04 EDT , Service support ,
[2018-09-24 11:35] LABS: Bedside Glucose 153 mg/dL (70-110)
[2018-09-24] MEDS: Bupivacaine 0.25% 30 ML Vial (11:38)
[2018-09-24] MEDS: MethylPREDNISolone Acetate 80 MG/ML Vial (11:38)
--- NOTE | 2018-09-24 11:43 | OP.PCM_ITS ---
Problem List (1) Degeneration of lumbosacral intervertebral disc Status: Chronic (2) Lumbosacral spondylosis Status: Chronic Report of Operation Date of Procedure: 09/24/18 Pre-Operative Diagnosis: Lumbosacral spondylosis, lumbosacral degenerative disc disease, lumbar facet arthropathy Post-Operative Diagnosis: Lumbosacral spondylosis, lumbosacral degenerative disc disease, lumbar facet arthropathy Surgery/Procedure Performed:: Right-sided lumbar facet steroid injection L3, L4, L5, S1 Description of Surgical Findings:: PROCEDURE: Right-sided lumbar facet steroid injection L3, L4, L5, S1 PREOPERATIVE DIAGNOSIS: Lumbar sacral spondylosis, lumbosacral degenerative disc disease, and lumbar facet arthropathy POSTOPERATIVE DIAGNOSIS: Lumbosacral spondylosis, lumbosacral degenerative disc disease, and lumbar facet arthropathy ANESTHESIA: MAC COMPLICATIONS: None BLOOD LOSS: Minimal PROCEDURE IN DETAIL: History and physical today was reviewed. Risks and benefits of the procedure were explained. The patient understood, agreed to our procedure, and informed consent was obtained. IV inserted per routine protocol. The patient was taken to the operating room, placed in a prone position with a pillow positioned underneath the abdomen. The right side of his lower back was prepped and draped in a sterile fashion using iodine x3. Under fluoroscopy guidance, on AP view, L3 through S1 vertebral bodies were visualized. Skin and subcutaneous tissues were anesthetized with approximately 5 mL of 1% lidocaine using a 25-gauge regular needle. Under direct visualization with fluoroscopy at approximately 25-degree angle, starting on the right L3, ending on the right S1, passing through the L4-L5 using a 22-gauge 5-inch spinal needle, the needle was advanced via the skin. The tip of the needle was maneuvered and directed towards the superior and medial gutter of the transverse process at the vicinity of the medial branch. Once the tip of the needle was in contact with the bone, the needle pulled approximately 2 mm off the bone. After negative aspiration of blood with CSF and confirmation of AP as well as oblique view, a total of 8 mL of preservative-free 0.25% Marcaine with 80 mg of Depo- Medrol was injection in divided doses between those 4 levels. The needles were then removed intact. The patient experienced no signs or symptoms intrathecal, intravascular injection. The patient experienced no paraesthesia. The procedure was completed without any apparent difficult, any complication. The patient appeared to tolerate well. ASSESSMENT AND PLAN: This is a 47-year-old Male with lumbosacral spondylosis, lumbosacral degenerative disc disease, and lumbar facet arthropathy, status post right-sided lumbar facet steroid injection L3 through S1. The patient will continue his current medications. The patient will follow in approximately 2 weeks for reevaluation.
== END 2018-09-24 12:35 | disposition home or self-care (01) ==
LOC: SDC 10:16
PROVIDERS: Family Provider Family Medicine; PCP Family Medicine; Referring Provider Anesthesiology Pain Medicine; Visit Provider Anesthesiology Pain Medicine
PROC: 3E0T3BZ Introduction of Anesthetic Agent into Peripheral Nerves and Plexi, Percutaneous Approach (ICD-10-PCS; CPT 64493; principal; 2018-09-24 11:25)
DX: M47.897 Other spondylosis, lumbosacral region (principal); M51.37 Other intervertebral disc degeneration, lumbosacral region; M46.86 Other specified inflammatory spondylopathies, lumbar region; K21.9 Gastro-esophageal reflux disease without esophagitis; F32.9 Major depressive disorder, single episode, unspecified; F41.9 Anxiety disorder, unspecified; I10 Essential (primary) hypertension; E11.9 Type 2 diabetes mellitus without complications; Z86.711 Personal history of pulmonary embolism; Z79.01 Long term (current) use of anticoagulants; Z79.4 Long term (current) use of insulin; Z79.84 Long term (current) use of oral hypoglycemic drugs; Z79.891 Long term (current) use of opiate analgesic; Z79.899 Other long term (current) drug therapy; Z87.891 Personal history of nicotine dependence
CPT/HCPCS: 64493; 64494; 64495; 64483; 72110; 82962; J7120

== ENCOUNTER → 2018-10-02 12:45 | Outpatient (CLI) | payer MEDICAID, SELFPAY ==
[2018-09-12 13:08] VITALS: BMI 58.6
[2018-09-24 10:38] VITALS: BMI 58.8
--- NOTE | 2018-10-04 08:21 | PFT ---
INTRODUCTION: The patient is a 47-year-old male that presents for pulmonary function studies secondary to a diagnosis of shortness of breath. Respiratory therapy reports good patient effort. Bronchodilators were used during testing. INTERPRETATION: Forced expiration spirometry demonstrates no evidence of a large airways obstructive ventilatory defect. There was no significant response to aerosolized bronchodilators. Spirograms are of good quality and plateau normally. The respiratory flow volume loop appears normal. Body plethysmography was performed and reveals lung volumes to be within normal limits. Diffusing capacity by single breath CO is within normal limits at 81% of predicted. IMPRESSION: Normal pulmonary function studies.
== END ==
PROVIDERS: Family Provider Family Medicine; PCP Family Medicine; Referring Provider Nurse Practitioner Acute Care; Visit Provider Nurse Practitioner Acute Care
DX: Z86.718 Personal history of other venous thrombosis and embolism (principal)
CPT/HCPCS: 94060; 94726; 94729

== ENCOUNTER 2018-12-10 08:05 | Day surgery (SDC) | payer MEDICAID, SELFPAY ==
[2018-11-26 15:02] VITALS: BMI 58.7
[2018-12-10] VITALS (8 sets, daily range): BP systolic 118–155; BP diastolic 50–90; PULSE 68–74; RESP 16; TEMP 36.4–37.1; O2SAT 92–97; BMI 57.6
[2018-12-10] MEDS: MethylPREDNISolone Acetate 80 MG/ML Vial (09:30)
[2018-12-10] MEDS: Bupivacaine 0.25% 30 ML Vial (09:30)
--- NOTE | 2018-12-10 09:30 | RAD_ITS ---
PROCEDURE: Facet joint injection. DATE OF EXAMINATION: December 10, 2018. INDICATION: Male, 48 years old. Chronic back pain. FLUOROSCOPY TIME (if supplied): (0:19) minutes/seconds. 4 intraoperative images were obtained. RAD/L/S Spine Min 4 Views IMPRESSION: Intraoperative imaging provided for right L3-L4 L4-L5 and L5-S1 facet block. Electronically Signed: Eliazar Funes, at 15:08 EDT , Service support ,
--- NOTE | 2018-12-10 09:44 | OP.PCM_ITS ---
Problem List (1) Spondylosis of lumbosacral region without myelopathy or radiculopathy Status: Chronic (2) Lumbosacral spondylosis Status: Chronic (3) Degeneration of lumbosacral intervertebral disc Status: Chronic Report of Operation Date of Procedure: 12/10/18 Pre-Operative Diagnosis: Lumbosacral spondylosis, lumbar secretory disease, lumbar facet arthropathy Post-Operative Diagnosis: Lumbosacral spondylosis, lumbosacral degenerative disc disease, lumbar facet arthropathy Surgery/Procedure Performed:: Right sided lumbar facet steroid injection L3, L4, L5, S1 Description of Surgical Findings:: PROCEDURE: Right-sided lumbar facet steroid injection L3, L4, L5, S1 PREOPERATIVE DIAGNOSIS: Lumbosacral spondylosis, lumbosacral degenerative disc disease, and lumbar facet arthropathy POSTOPERATIVE DIAGNOSIS: Lumbosacral spondylosis, lumbosacral degenerative disc disease, and lumbar facet arthropathy ANESTHESIA: MAC COMPLICATIONS: None BLOOD LOSS: Minimal PROCEDURE IN DETAIL: History and physical today was reviewed. Risks and benefits of the procedure were explained. The patient understood, agreed to our procedure, and informed consent was obtained. IV inserted per routine protocol. The patient was taken to the operating room, placed in a prone position with a pillow positioned underneath the abdomen. The right side of the lower back was prepped and draped in a sterile fashion using iodine x3. Under fluoroscopy guidance, on AP view, L3 through S1 vertebral bodies were visualized. Skin and subcutaneous tissues were anesthetized with approximately 5 mL of 1% lidocaine using a 25-gauge regular needle. Under direct visualization with fluoroscopy at approximately 25-degree angle, starting on the right L3, ending on the right S1, passing through the L4-L5 using a 22-gauge 5-inch spinal needle, the needle was advanced via the skin. The tip of the needle was maneuvered and directed towards the superior and medial gutter of the transverse process at the vicinity of the medial branch. Once the tip of the needle was in contact with the bone, the needle pulled approximately 2 mm off the bone. After negative aspiration of blood with CSF and confirmation of AP as well as oblique view, a total of 8 mL of preservative-free 0.25% Marcaine with 80 mg of Depo- Medrol was injection in divided doses between those 4 levels. The needles were then removed intact. The patient experienced no signs or symptoms intrathecal, intravascular injection. The patient experienced no paraesthesia. The procedure was completed without any apparent difficult, any complication. The patient appeared to tolerate well. ASSESSMENT AND PLAN: This is a 48-year-old male with lumbosacral spondylosis, lumbosacral degenerative disc disease, and lumbar facet arthropathy, status post right-sided lumbar facet steroid injection L3 through S1. The patient will continue her current medications. The patient will follow in approximately 2 weeks for reevaluation.
[2018-12-12 13:07] LABS: Bedside Glucose 147 mg/dL (70-110)
== END 2018-12-10 10:51 | disposition home or self-care (01) ==
LOC: SDC 08:05 → AC 08:07
PROVIDERS: Family Provider Family Medicine; PCP Family Medicine; Referring Provider Anesthesiology Pain Medicine; Visit Provider Anesthesiology Pain Medicine
PROC: 3E0T3BZ Introduction of Anesthetic Agent into Peripheral Nerves and Plexi, Percutaneous Approach (ICD-10-PCS; CPT 64493; principal; 2018-12-10 09:25)
DX: M47.817 Spondylosis without myelopathy or radiculopathy, lumbosacral region (principal); M51.37 Other intervertebral disc degeneration, lumbosacral region; M46.86 Other specified inflammatory spondylopathies, lumbar region; I10 Essential (primary) hypertension; E11.9 Type 2 diabetes mellitus without complications; C67.2 Malignant neoplasm of lateral wall of bladder; K21.9 Gastro-esophageal reflux disease without esophagitis; F32.9 Major depressive disorder, single episode, unspecified; F41.9 Anxiety disorder, unspecified; K76.0 Fatty (change of) liver, not elsewhere classified; Z79.4 Long term (current) use of insulin; Z79.84 Long term (current) use of oral hypoglycemic drugs; Z79.01 Long term (current) use of anticoagulants; Z86.711 Personal history of pulmonary embolism; Z87.891 Personal history of nicotine dependence; Z79.891 Long term (current) use of opiate analgesic; Z79.899 Other long term (current) drug therapy
CPT/HCPCS: 64493; 64494; 64495; 64483; 72110; 82962; J7120

== ENCOUNTER 2019-01-28 06:40 | Day surgery (SDC) | payer MEDICAID, SELFPAY ==
[2018-12-10 08:41] VITALS: BMI 57.6
[2019-01-28 07:00] VITALS: BP 149/78; PULSE 72; RESP 20; TEMP 36.5; O2SAT 97; BMI 57.4
[2019-01-28 07:41] LABS: Bedside Glucose 200 mg/dL (70-110)
--- NOTE | 2019-01-28 08:10 | RAD_ITS ---
STUDY: LUMBAR SPINE REASON FOR EXAM: Male, 48 years old. Back pain TECHNIQUE: 8 intraoperative fluoroscopy view(s) of the lumbar spine were obtained. Total fluoroscopy time of 37 seconds COMPARISON: None FINDINGS: Intraoperative fluoroscopy utilized as image guidance during radiofrequency ablation of L3-S1 levels on the left. Please refer to the procedure report regarding details of the procedure. RAD/L/S Spine Min 4 Views IMPRESSION: As above. Electronically Signed: Jeovany Purcell MD at 16:27 EDT Tel [phone], Service support ,
[2019-01-28] MEDS: MethylPREDNISolone Acetate 80 MG/ML Vial (08:17)
[2019-01-28] MEDS: Bupivacaine 0.25% 30 ML Vial (08:17)
[2019-01-28 08:35] VITALS: BP 125/60; BP 149/78; PULSE 74; RESP 16; TEMP 36.4
[2019-01-28 08:47] VITALS: BP 138/76; BP 149/78; PULSE 70; RESP 16; O2SAT 94
[2019-01-28 08:49] VITALS: BP 128/82; BP 149/78; PULSE 69; RESP 16; O2SAT 97
[2019-01-28 08:55] VITALS: BP 109/65; BP 149/78; PULSE 70; RESP 16; TEMP 36.5; O2SAT 95
[2019-01-28 09:13] VITALS: BP 149/78
--- NOTE | 2019-01-28 17:33 | PCM.OPRPT ---
Problem List (1) Degeneration of lumbosacral intervertebral disc Status: Chronic (2) Lumbosacral spondylosis Status: Chronic (3) Spondylosis of lumbosacral region without myelopathy or radiculopathy Status: Chronic Report of Operation Date of Procedure: 01/28/19 Description of Surgical Findings:: PROCEDURE: Left-sided lumbar radiofrequency ablation of the medial branch L3, L4, L5, S1 PREOPERATIVE DIAGNOSES: Lumbosacral spondylosis, lumbosacral degenerative disc disease, lumbar facet arthropathy POSTOPERATIVE DIAGNOSES: Lumbosacral spondylosis, lumbosacral degenerative disc disease, lumbar facet arthropathy ANESTHESIA: MAC COMPLICATIONS: None BLOOD LOSS: Minimal PROCEDURE IN DETAIL: History and physical today was reviewed. Risks and benefits of procedure explained. The patient understood, agreed to the procedure and informed consent was obtained. IV inserted per routine protocol. The patient was taken to the operating room, placed in the prone position with a pillow positioned underneath the abdomen. The left side of the lower back was prepped and draped in a sterile fashion using iodine x 3. Under fluoroscopy guidance, on an oblique view, the L3 through S1 vertebral bodies were visualized. The skin and subcutaneous tissue was anesthetized with approximately 10 mL of 1% lidocaine using a 25-gauge regular needle. Under direct visualization with fluoroscopy at approximately 25-degree angle, starting on the left L3, ending on the left S1 passing through the L4-L5 using a 20-gauge 15 cm with a 10 mm curved active tip radiofrequency ablation needle the needle passed through the skin. The tip of the needle was maneuvered and directed towards the superior and medial gutter of the transverse process at the vicinity of the medial branch. Once the tip of the needle was in contact with the bone, the needle pulled approximately 2 mm up the bone. The stylet of each needle was then removed. After negative aspiration of blood with CSF and confirmation of AP as well as oblique view, radiofrequency ablation probe was then inserted at each level. Impedance was then recorded at L3 to be 217, at L4 281, at L5 299, at S1 272 ohm. Motor-evoked potential was then initiated to 1.5 volt without any motor response at each corresponding level. The probe was then removed intact and a total of 6 mL preservative-free 1% lidocaine was injected in divided doses between those 4 levels after negative aspiration of blood with CSF. The radiofrequency ablation probe was then reinserted after confirmation of AP, oblique as well as lateral view. Radiofrequency ablation was then initiated to 80 degrees Celsius for 90 seconds at each level. Once concluded, the probe was then removed intact and a total of 6 mL of preservative-free 0.25% Marcaine with 40 mg Depo-Medrol was injected in divided doses between those 4 levels. The needles were then removed intact. The patient experienced no signs or symptoms of intrathecal, intravascular injection. The patient experienced no paraesthesia. The procedure was completed without any apparent difficulty, any complication. The patient appeared to tolerate well. Sensory as well as motor exam was unchanged from prior to procedure. ASSESSMENT AND PLAN: This is a 48-year-old male with lumbosacral spondylosis, lumbosacral degenerative disc disease, lumbar facet arthropathy, status post left-sided radiofrequency ablation of the medial branch L3 through S1. The patient will continue his current medications. The patient will follow up in approximately 2 weeks for reevaluation.
== END 2019-01-28 09:17 | disposition home or self-care (01) ==
LOC: SDC 06:42 → AC 06:43
PROVIDERS: Family Provider Family Medicine; PCP Family Medicine; Referring Provider Anesthesiology Pain Medicine; Visit Provider Anesthesiology Pain Medicine
PROC: (CPT 64635; principal; 2019-01-28 08:05)
DX: M47.817 Spondylosis without myelopathy or radiculopathy, lumbosacral region (principal); M51.37 Other intervertebral disc degeneration, lumbosacral region; M46.96 Unspecified inflammatory spondylopathy, lumbar region; K21.9 Gastro-esophageal reflux disease without esophagitis; C67.9 Malignant neoplasm of bladder, unspecified; F32.9 Major depressive disorder, single episode, unspecified; F41.9 Anxiety disorder, unspecified; I10 Essential (primary) hypertension; I27.20 Pulmonary hypertension, unspecified; G47.30 Sleep apnea, unspecified; Z86.711 Personal history of pulmonary embolism; Z79.01 Long term (current) use of anticoagulants; Z79.891 Long term (current) use of opiate analgesic; Z79.899 Other long term (current) drug therapy; Z87.891 Personal history of nicotine dependence
CPT/HCPCS: 64635; 64636 ×2; 72110; 76000; 82962; J7120

== ENCOUNTER 2019-03-18 06:47 | Day surgery (SDC) | payer MEDICAID, SELFPAY ==
[2019-03-18] VITALS (7 sets, daily range): BP systolic 101–146; BP diastolic 55–89; PULSE 69–81; RESP 16–18; TEMP 36.1–36.9; O2SAT 90–98; BMI 58.4
[2019-03-18] MEDS: Lactated Ringers 1,000 ML 100 ML IV (07:25)
[2019-03-18 07:31] LABS: Bedside Glucose 177 mg/dL (70-110)
--- NOTE | 2019-03-18 08:40 | RAD_ITS ---
STUDY: X-RAY - LUMBAR SPINE REASON FOR EXAM: Male, 48 years old. TECHNIQUE: 9 view(s) of the lumbar spine were obtained. CVP 120 MAA 5.92 fluoroscopy time 2.3 minutes COMPARISON: Previous lumbar fluoroscopic study obtained on 01/28/2019 FINDINGS: Fluoroscopy films were obtained showing multiple metallic needles in place in the lower lumbar spine RAD/L/S Spine Min 4 Views IMPRESSION: Multiple needles are noted in place in lower lumbar spine. Electronically Signed: Bairon Eddy, at 14:51 EDT Tel , Service support ,
[2019-03-18] MEDS: MethylPREDNISolone Acetate 80 MG/ML Vial (08:50)
[2019-03-18] MEDS: Bupivacaine 0.25% 30 ML Vial (08:50)
--- NOTE | 2019-03-18 11:54 | PCM.OPRPT ---
Report of Operation Date of Procedure: 03/18/19 Description of Surgical Findings:: PROCEDURE: Right-sided lumbar radiofrequency ablation of the medial branch L3, L4, L5, S1 PREOPERATIVE DIAGNOSES: Lumbosacral spondylosis, lumbosacral degenerative disc disease, lumbar facet arthropathy POSTOPERATIVE DIAGNOSES: Lumbosacral spondylosis, lumbosacral degenerative disc disease, lumbar facet arthropathy ANESTHESIA: MAC COMPLICATIONS: None BLOOD LOSS: Minimal PROCEDURE IN DETAIL: History and physical today was reviewed. Risks and benefits of procedure explained. The patient understood, agreed to the procedure and informed consent was obtained. IV inserted per routine protocol. The patient was taken to the operating room, placed in the prone position with a pillow positioned underneath the abdomen. The right side of the lower back was prepped and draped in a sterile fashion using iodine x 3. Under fluoroscopy guidance, on an oblique view, the L3 through S1 vertebral bodies were visualized. The skin and subcutaneous tissue was anesthetized with approximately 10 mL of 1% lidocaine using a 25-gauge regular needle. Under direct visualization with fluoroscopy at approximately 25-degree angle, starting on the right L3, ending on the right S1 passing through the L4-L5 using a 20-gauge 15 cm with a 10 mm curved active tip radiofrequency ablation needle the needle passed through the skin. The tip of the needle was maneuvered and directed towards the superior and medial gutter of the transverse process at the vicinity of the medial branch. Once the tip of the needle was in contact with the bone, the needle pulled approximately 2 mm up the bone. The stylet of each needle was then removed. After negative aspiration of blood with CSF and confirmation of AP as well as oblique view, radiofrequency ablation probe was then inserted at each level. Impedance was then recorded at L3 to be 295, at L4 212, at L5 294, at S1 273 ohm. Motor-evoked potential was then initiated to 1.5 volt without any motor response at each corresponding level. The probe was then removed intact and a total of 6 mL preservative-free 1% lidocaine was injected in divided doses between those 4 levels after negative aspiration of blood with CSF. The radiofrequency ablation probe was then reinserted after confirmation of AP, oblique as well as lateral view. Radiofrequency ablation was then initiated to 80 degrees Celsius for 90 seconds at each level. Once concluded, the probe was then removed intact and a total of 6 mL of preservative-free 0.25% Marcaine with 40 mg Depo-Medrol was injected in divided doses between those 4 levels. The needles were then removed intact. The patient experienced no signs or symptoms of intrathecal, intravascular injection. The patient experienced no paraesthesia. The procedure was completed without any apparent difficulty, any complication. The patient appeared to tolerate well. Sensory as well as motor exam was unchanged from prior to procedure. ASSESSMENT AND PLAN: This is a 48-year-old male with lumbosacral spondylosis, lumbosacral degenerative disc disease, lumbar facet arthropathy, status post right-sided radiofrequency ablation of the medial branch L3 through S1. The patient will continue his current medications. The patient will follow up in approximately 2 weeks for reevaluation.
== END 2019-03-18 09:50 | disposition home or self-care (01) ==
LOC: SDC 06:48 → AC 06:49
PROVIDERS: Family Provider Family Medicine; PCP Family Medicine; Referring Provider Anesthesiology Pain Medicine; Visit Provider Anesthesiology Pain Medicine
PROC: (CPT 64635; principal; 2019-03-18 08:35)
DX: M47.817 Spondylosis without myelopathy or radiculopathy, lumbosacral region (principal); M51.37 Other intervertebral disc degeneration, lumbosacral region; M46.96 Unspecified inflammatory spondylopathy, lumbar region; I10 Essential (primary) hypertension; E11.9 Type 2 diabetes mellitus without complications; C67.2 Malignant neoplasm of lateral wall of bladder; G47.30 Sleep apnea, unspecified; K21.9 Gastro-esophageal reflux disease without esophagitis; F32.9 Major depressive disorder, single episode, unspecified; F41.9 Anxiety disorder, unspecified; M19.90 Unspecified osteoarthritis, unspecified site; E66.01 Morbid (severe) obesity due to excess calories; Z68.43 Body mass index [BMI] 50.0-59.9, adult; Z86.711 Personal history of pulmonary embolism; Z79.01 Long term (current) use of anticoagulants; Z79.4 Long term (current) use of insulin; Z79.84 Long term (current) use of oral hypoglycemic drugs; Z79.891 Long term (current) use of opiate analgesic; Z79.899 Other long term (current) drug therapy; Z87.891 Personal history of nicotine dependence
CPT/HCPCS: 64635; 64636 ×2; 72110; 76000; 82962; J7120

== ENCOUNTER → 2019-04-02 14:38 | Outpatient (CLI) | payer MEDICAID, SELFPAY ==
[2019-03-18 07:16] VITALS: BMI 58.4
== END ==
PROVIDERS: Family Provider Family Medicine; PCP Family Medicine; Referring Provider Internal Medicine Critical Care Medicine; Visit Provider Internal Medicine Critical Care Medicine
DX: G47.33 Obstructive sleep apnea (adult) (pediatric) (principal)

== ENCOUNTER 2019-04-29 08:59 | Day surgery (SDC) | payer MEDICAID, SELFPAY ==
[2019-04-12 10:24] VITALS: BMI 57.3
[2019-04-29] VITALS (9 sets, daily range): BP systolic 79–148; BP diastolic 56–96; PULSE 71–95; RESP 16–18; TEMP 36.4–36.8; O2SAT 94–98; BMI 57.6
[2019-04-29 09:51] LABS: Bedside Glucose 201 mg/dL (70-110)
[2019-04-29] MEDS: 0.9% Normal Saline (Pres. free 10 ML Vial (10:53)
[2019-04-29] MEDS: MethylPREDNISolone Acetate 80 MG/ML Vial (10:53)
[2019-04-29] MEDS: Bupivacaine 0.25% 30 ML Vial (10:53)
--- NOTE | 2019-04-29 10:55 | RAD_ITS ---
STUDY: CAUDAL BLOCK. REASON FOR EXAM: Male, 48 years old. Low back pain. FLUOROSCOPY TIME (if supplied): ( 15 seconds ) minutes/seconds. 2 intraoperative views were obtained. TECHNIQUE: Under direct fluoroscopic guidance, the pain management physician performed a caudal block. COMPARISON: None. FINDINGS: The spinal needle is seen overlying the posterior inferior aspect of the sacrum. RAD/Fluor Guidance for Spine Inj IMPRESSION: The spinal needle is seen overlying the posterior inferior aspect of the sacrum. Electronically Signed: Eliazar Funes, at 9:34 EST , Service support ,
--- NOTE | 2019-04-29 12:44 | OP.PCM_ITS ---
Report of Operation Date of Procedure: 04/29/19 Description of Surgical Findings:: PREOPERATIVE DIAGNOSIS: Lumbosacral radiculopathy, lumbosacral degenerative disc disease, lumbosacral spinal stenosis POSTOPERATIVE DIAGNOSIS: Lumbosacral radiculopathy, lumbosacral degenerative disc disease, lumbosacral spinal stenosis PROCEDURE PERFORMED: Caudal epidural steroid injection. ANESTHESIA: MAC. BLOOD LOSS: Minimal. COMPLICATIONS: None. DESCRIPTION OF PROCEDURE: History and physical of today was reviewed. Risks and benefits of the procedure were explained. The patient understood and agreed to proceed. Informed consent was obtained. IV inserted per routine protocol. The patient was taken to the operating room and placed in the prone position with a pillow positioned underneath the abdomen. The lower back and tailbone area was prepped and draped in a sterile fashion using iodine x3. Under flu oroscopy guidance on a lateral view, the caudal space was identified. The skin and subcutaneous tissue was anesthetized with approximately 3 mL of 1% lidocaine using a 25-gauge regular needle. Under direct visualization with fluoroscopy, using a 22-gauge 3-1/2-inch spinal needle, the needle was advanced via the skin through the sacral hiatus. The tip of the needle was passed through the sacroco ccygeal ligament and advanced to approximately S4 area. After negative aspiration of blood or CSF, a total of 3 mL of contrast was injected to confirm correct placement of the needle as well as cephalad spread. The spread was followed to approximately L5 area. After confirmation on AP as well as lateral view and repeated negative aspiration, a total of 15 mL of preservative-free 0.125% Marcaine with 80 mg of Depo-Medrol was injected easily. The needle was then removed intact. The patient experienced no sign or symptoms of intrathecal or intravascular injection. The patient experienced no paresthesia. The procedure was completed without any apparent difficulty or any complications. The patient appeared to tolerate it well. ASSESSMENT AND PLAN: This is a 48-year-old male with lumbosacral radiculopathy, lumbosacral degenerative disc disease, lumbosacral spinal stenosis status post caudal epidural steroid injection.patient will continue his current medications patient will follow in approximately 2 weeks for reevaluation.
== END 2019-04-29 11:56 | disposition home or self-care (01) ==
LOC: SDC 09:00 → AC 09:03
PROVIDERS: Family Provider Family Medicine; PCP Family Medicine; Referring Provider Anesthesiology Pain Medicine; Visit Provider Anesthesiology Pain Medicine
PROC: 3E0S3BZ Introduction of Anesthetic Agent into Epidural Space, Percutaneous Approach (ICD-10-PCS; CPT 62282; principal; 2019-04-29 10:35)
DX: M51.17 Intervertebral disc disorders with radiculopathy, lumbosacral region (principal); M48.07 Spinal stenosis, lumbosacral region; I10 Essential (primary) hypertension; E11.9 Type 2 diabetes mellitus without complications; K21.9 Gastro-esophageal reflux disease without esophagitis; G47.30 Sleep apnea, unspecified; F32.9 Major depressive disorder, single episode, unspecified; F41.9 Anxiety disorder, unspecified; F17.210 Nicotine dependence, cigarettes, uncomplicated; Z79.4 Long term (current) use of insulin; Z86.711 Personal history of pulmonary embolism; Z79.01 Long term (current) use of anticoagulants; Z79.84 Long term (current) use of oral hypoglycemic drugs; Z79.899 Other long term (current) drug therapy; Z79.891 Long term (current) use of opiate analgesic
CPT/HCPCS: 01992; 62323; 64483; 77003; 82962; J7120; J3490

== ENCOUNTER 2019-06-17 14:26 | Emergency (ER) | payer MEDICARE, MEDICAID, SELFPAY ==
[2019-05-23 14:09] VITALS: BMI 57.6
[2019-06-17 14:27] VITALS: BP 158/89; PULSE 79; RESP 18; TEMP 36.6; O2SAT 98; BMI 57.2
--- NOTE | 2019-06-17 14:59 | CT_ITS ---
STUDY: CT ABDOMEN AND PELVIS WITH CONTRAST REASON FOR EXAM: Male, 48 years old. Left lower quadrant pain/spasms RADIATION DOSAGE (If Supplied By Facility): CTDIvol = ( 23.53 ) mGy, DLP = ( 1799.74 ) mGycm TECHNIQUE: Transaxial images were obtained from the dome of the diaphragm to the symphysis pubis with oral contrast. ml of Gastrografin and amp; 100mL Isovue-300 contrast was administered. Sagittal and coronal images were reconstructed. Individualized dose optimization techniques were used for this CT. COMPARISON: None. FINDINGS: The visualized lung bases are unremarkable. Normal liver. . No intrahepatic biliary duct dilatation or liver mass. Normal gallbladder and extrahepatic biliary system. Normal spleen. Normal pancreas. Mixed fatty and soft tissue tumor of the left adrenal gland measuring 5.98 x 4.52 cm is compatible with a benign adrenal myelolipoma. Normal right adrenal gland. Normal right kidney. Normal left kidney. No hydronephrosis or renal masses. No large stones. Normal visualized stomach. Normal small intestine. There are several sigmoid diverticula consistent with diverticulosis. No bowel dilatation or obstruction. No free air or free fluid. The appendix is visualized and appears normal. There is diffuse atherosclerotic calcification of the abdominal aorta, without a demonstrated aneurysm. Normal inferior vena cava. Normal retroperitoneum. Normal urinary bladder. Normal abdominal wall. There are diffuse degenerative changes of the visualized lumbar spine. Right hip prosthesis noted. CT/Abdomen/Pelvis WITH Contrast IMPRESSION: 1. Mixed fatty and soft tissue tumor of the left adrenal gland measuring 5.98 x 4.52 cm is compatible with a benign adrenal myelolipoma. 2. Sigmoid diverticulosis. Electronically Signed: Matthew Villanueva MD at 17:35 EST , Service support ,
--- NOTE | 2019-06-17 15:02 | ED.DCSUM_ITS ---
- ER Visit Summary Date of Service: 06/17/19 Chief Complaint: Left lower quadrant abdominal pain History of Present Illness: The patient is a 48 M presents with left lower quadrant abdominal pain that has been getting worse over the past 4 days. Patient states the pain began suddenly. Patient states the pain is dull. Patient states the pain is worse with the car ride and with bending forward. Patient states nothing is helped with the pain. Patient admits to nausea but denies any vomiting. Patient denies any diarrhea, melena, or hematochezia. Patient denies any radiation of the pain. Patient denies any dysuria or hematuria. Physical Examination: Vital signs are stable. Patient is afebrile. Patient is in no acute distress. Oral mucosa is pink and moist. Neck is supple. Trachea is midline. There is no JVD. Heart was regular rate and rhythm. Lungs are clear and equal bilaterally. Abdomen is soft. Bowel sounds are normal. There is left lower quadrant tenderness. There is no rebound or guarding. Cranial nerves II through XII are intact. There are no focal motor or sensory deficits noted. Test Results: CBC, comprehensive metabolic profile, and urinalysis were obtained were all within normal limits. CT scan of the abdomen pelvis was obtained. There is sigmoid diverticulosis. There is also a mixed fatty and soft tissue tumor of the left adrenal gland consistent with benign adrenal myelolipoma. Emergency Department Course and Treatment: Patient was given IV fluids and Toradol initially. Patient was still having pain. Patient was given a dose of Dilaudid. Patient was feeling better on reevaluation. Patient was instructed to follow-up with his primary care physician in 5 to 7 days. Clinically, the patient appears to have diverticulitis. Patient was given a prescription for Augmentin. Patient was instructed to return if worse in any way. Patient understood and was agreeable with the plan. All questions were answered. Disposition: Discharge home Impression: Left lower quadrant abdominal pain This note was generated with [employer] dictation software. It may contain incorrect words, spelling, and punctuation that were not noted in review of the chart prior to signing ED Disposition - Plan for ED Patient: Disposition: Home or Assisted Living Diagnosis: Left lower quadrant abdominal pain of unknown etiology Instructions: ABDOMINAL PAIN, Unkown Cause, (Male) Prescriptions: Amox/Clavulanate Tablet [Augmentin Tablet] 875 mg PO Q12H #20 tab Prescription Printed Referrals: London Barkley MD [Primary Care Provider] - 5-7 Days
[2019-06-17 15:34] LABS: Bacteria 0 SEEN /hpf (None Seen); Mucous, Urine 0 SEEN /hpf (<or=2+); Red Blood Cells-Urine 0 SEEN /hpf (0-5)
[2019-06-17] MEDS: Ketorolac 30 MG/ML Syringe IV (15:37)
[2019-06-17] MEDS: 0.9% Normal Saline 1,000 ML 1000 ML IV (15:37)
[2019-06-17 15:38] LABS: Absolute Lymphocyte Count 3.23 X10^3/uL (0.83-4.51); Absolute Neutrophil Count 5.4 X10^3/uL (2.0-7.7); Basophil# 0.06 X10^3/uL; Basophil% 0.6 % (0-1); Eosinophil# 0.26 X10^3/uL; Eosinophils% 2.7 % (0-5); Hematocrit 42.8 % (40-54); Hemoglobin 14.1 g/dL (13.0-16.5); Lymphocyte # 3.23 X10^3/ul (4.0); Lymphocyte % 33.2 % (19-41); Mean Corp Hgb Conc 32.9 g/dL (32-36); Mean Corpuscular Hgb 30.3 pg (27.0-32.0); Mean Platelet Vol. 9.6 fl (6.2-12.0); Monocyte# 0.78 X10^3/uL; NRBC Flagged by Analyzer 0 % (0-5); Neutrophil # 5.38 X10^3/uL (2.7-7.7); Neutrophil % 55.2 % (47-70); Platelet Count 248 K/mm3 (150-450); RBC Distribution Width CV 14.6 % (11.6-14.6); RBC Distribution Width SD 48.8 fl (35.1-43.9); Red Blood Count 4.65 M/mm3 (4.6-6.2); White Blood Count 9.7 K/mm3 (4.4-11.0)
[2019-06-17 15:55] LABS: Color, Urine Yellow (Yellow); Glucose, Dipstick Normal (Normal); Ketone-Dipstick 5 mg/dl (Negative); Leukocyte Esterase-Dipstick Negative /ul (Negative); Nitrite-Dipstick Negative (Negative); Occult Blood-Urine Negative /ul (Negative); Protein-Dipstick Negative (Negative); Urine Bilirubin Dipstick Negative (Negative); Urine Clarity Clear (Clear); Urine Urobilinogen Normal (Normal); Urine pH 6.5 (5.0 - 8.0)
[2019-06-17 16:04] LABS: ALB/GLOB Ratio 0.7 RATIO (0.9-2.4); AST(SGOT) 53 U/L (15-37); Alanine Aminotransfer ALT/SGPT 59 U/L (16-61); Albumin, Serum 3.4 g/dL (3.2-5.0); Alkaline Phosphatase 75 U/L (45-117); Anion Gap 5 (5-15); BUN 14 mg/dL (7-18); BUN/Creat Ratio 13.7 RATIO (10-20); Calcium,Total 8.2 mg/dL (8.5-10.1); Chloride 106 mmol/L (98-107); Creatinine, Serum 1.02 mg/dL (0.70-1.30); EST Glomerular Filtration Rate 82 mL/min (>60); Est Glom Filt Rate - Afr Amer 100 mL/min (>60); Glucose 78 mg/dL (74-106); Potassium 3.7 mmol/L (3.5-5.1); Protein, Total 8.4 g/dL (6.4-8.2); Sodium Level 135 mmol/L (136-145)
[2019-06-17 16:23] LABS: Squamous Epithelial Cells - UA 0-5 SEEN /hpf (0-5); White Blood Cells 0-5 SEEN /hpf (0-5)
[2019-06-17] MEDS: HYDROmorphone 0.5 MG/0.5 ML SYRINGE IV (17:42)
[2019-06-17 18:21] VITALS: BP 139/74; PULSE 71; RESP 16; O2SAT 96
== END 2019-06-17 18:21 | disposition home or self-care (01) ==
PROVIDERS: Emergency Provider Emergency Medicine; Family Provider Family Medicine; PCP Family Medicine
DX: R10.32 Left lower quadrant pain (principal); R11.0 Nausea; R51 Headache; K57.30 Diverticulosis of large intestine without perforation or abscess without bleeding; D49.7 Neoplasm of unspecified behavior of endocrine glands and other parts of nervous system; E66.9 Obesity, unspecified; Z85.51 Personal history of malignant neoplasm of bladder; Z86.718 Personal history of other venous thrombosis and embolism; Z86.711 Personal history of pulmonary embolism; Z79.01 Long term (current) use of anticoagulants; Z79.899 Other long term (current) drug therapy; F17.200 Nicotine dependence, unspecified, uncomplicated
CPT/HCPCS: 74177; 80053; 81001; 85025; 96361; 96374; 96375; 99282; J7030; Q9967; A4216

== ENCOUNTER → 2019-07-01 13:54 | Outpatient (CLI) | payer MEDICARE, MEDICAID, SELFPAY ==
[2019-07-01 13:35] VITALS: BMI 55.4
[2019-07-01 16:05] LABS: ALB/GLOB Ratio 0.6 RATIO (0.9-2.4); AST(SGOT) 51 U/L (15-37); Alanine Aminotransfer ALT/SGPT 50 U/L (16-61); Albumin, Serum 3.4 g/dL (3.2-5.0); Alkaline Phosphatase 73 U/L (45-117); Anion Gap 5 (5-15); BUN 12 mg/dL (7-18); BUN/Creat Ratio 12.1 RATIO (10-20); Calcium,Total 8.7 mg/dL (8.5-10.1); Chloride 107 mmol/L (98-107); Creatinine, Serum 0.99 mg/dL (0.70-1.30); EST Glomerular Filtration Rate 85 mL/min (>60); Est Glom Filt Rate - Afr Amer 103 mL/min (>60); Globulin 5.3 g/dL (2.2-4.2); Glucose 81 mg/dL (74-106); Potassium 3.6 mmol/L (3.5-5.1); Protein, Total 8.7 g/dL (6.4-8.2); Sodium Level 137 mmol/L (136-145)
[2019-07-01 16:28] LABS: Microalbumin,Random Urine 9.9 mg/L (NO RANGE EST.); Microalbumin:Creatinine Ratio 10.7 mg/g CRE (<30 mg/g CRE)
== END ==
PROVIDERS: PCP Family Medicine; Referring Provider Internal Medicine Endocrinology, Diabetes & Metabolism; Visit Provider Internal Medicine Endocrinology, Diabetes & Metabolism
DX: E11.9 Type 2 diabetes mellitus without complications (principal)
CPT/HCPCS: 36415; 80053; 82043; 82570

== ENCOUNTER 2019-08-26 06:06 | Day surgery (SDC) | payer MEDICARE, MEDICAID, SELFPAY ==
[2019-08-14 10:27] VITALS: BMI 52.9
[2019-08-26 06:29] VITALS: BP 143/91; PULSE 68; RESP 16; TEMP 36.4; O2SAT 94; BMI 52.0
[2019-08-26] MEDS: Lactated Ringers 1,000 ML 100 ML IV (07:13)
[2019-08-26 07:20] LABS: Bedside Glucose 119 mg/dL (70-110)
--- NOTE | 2019-08-26 07:30 | RAD_ITS ---
STUDY: X-RAY - LUMBAR SPINE REASON FOR EXAM: Male, 48 years old. ABLATION L3-S1 TECHNIQUE: 3 cone down intraoperative view(s) of the lumbar spine were obtained. COMPARISON: None FINDINGS: Intraoperative fluoroscopic services were provided for left L3-S1 facet joint ablation. RAD/Lumbar Spine 2 or 3 Views IMPRESSION: Intraoperative fluoroscopic services provided for left L3-S1 facet joint ablation. Electronically Signed: Eliazar Funes, at 9:51 EDT , Service support ,
[2019-08-26] MEDS: Bupivacaine 0.25% 30 ML Vial (07:40)
[2019-08-26] MEDS: MethylPREDNISolone Acetate 80 MG/ML Vial (07:40)
[2019-08-26 08:04] VITALS: BP 126/75; BP 143/91; PULSE 76; RESP 14; TEMP 36.6; O2SAT 94
[2019-08-26 08:10] VITALS: BP 129/76; BP 143/91; PULSE 72; RESP 18; O2SAT 93
[2019-08-26 08:15] VITALS: BP 133/80; BP 143/91; PULSE 70; RESP 18; O2SAT 95
[2019-08-26 08:22] VITALS: BP 115/81; BP 143/91; PULSE 68; RESP 18; TEMP 36.5; O2SAT 93
[2019-08-26 08:41] VITALS: BP 143/91
--- NOTE | 2019-08-26 08:43 | PCM.OPRPT ---
Report of Operation Date of Procedure: 08/26/19 Description of Surgical Findings:: PREOPERATIVE DIAGNOSIS: Lumbosacral spondylosis, lumbosacral degenerative disc disease, lumbar facet arthropathy POSTOPERATIVE DIAGNOSIS: Lumbosacral spondylosis, lumbosacral degenerative disc disease, lumbar facet arthropathy PROCEDURE PERFORMED: left-sided radiofrequency ablation of the medial branch at L3, L4, L5, and S1. ANESTHESIA: MAC. BLOOD LOSS: Minimal. COMPLICATIONS: None. DESCRIPTION OF PROCEDURE: History and physical of today was reviewed. Risks and benefits of the procedure were explained. The patient understood and agreed to proceed. Informed consent was obtained. IV inserted per routine protocol. The patient was taken to the operating room and placed in the prone position with a pillow positioned underneath the abdomen. The left side of her lower back was prepped and draped in a sterile fashion using iodine x3. Under fluoroscopy guidance in an oblique view, the L3 through S1 vertebral bodies were visualized. The skin and subcutaneous tissue was anesthetized with approximately 10 mL of 1% lidocaine using a 25-gauge regular needle. Under direct visualization on fluoroscopy at approximately 25-degree angle, starting on the left L3, ending on the left S1, passing through the L4 and L5, using a 20-gauge 15-cm with a 10-mm curved active-tip radiofrequency ablation needle, the needle was passed through the skin. The tip of the needle was maneuvered and directed towards the superior medial gutter of the transverse process at the vicinity of the medial branch. Once the tip of the needle was in contact with the bone, the needle was pulled approximately 2 mm off the bone. The stylette of each needle was then removed. After negative aspiration of blood or CSF and confirmation on AP, oblique as well as lateral view, the radiofrequency ablation probe was then inserted at each level. Impedance was then recorded at L3 to be 259 ohm, at L4 to be 284 ohm, at L5 to be 308 ohm, and at S1 to be 221 ohm. Motor evoked potential was then initiated to 1.5 volt without any motor response at each corresponding level. The probe was then removed intact and a total of 6 mL of preservative-free 1% lidocaine was injected in divided doses between those four levels after negative aspiration of blood or CSF. The radiofrequency ablation probe was then reinserted. After confirmation on AP, oblique as well as lateral view, radiofrequency ablation was then initiated to 80 degree Celsius for 90 second at each level. Once concluded, the probe was then removed intact. A total of 6 mL of preservative-free 0.25% Marcaine with 40 mg of Depo-Medrol was injected in divided doses between those four levels. The needles were then removed intact. The patient experienced no sign or symptoms of intrathecal or intravascular injection. The patient experienced no paresthesia. The procedure was completed without any apparent difficulty or any complications. The patient appeared to tolerate it well. Sensory as well as motor exam was unchanged from prior to the procedure. ASSESSMENT AND PLAN: This is a 48-year-old male with lumbosacral spondylosis, lumbosacral degenerative disc disease, lumbar facet arthropathy status post left-sided lumbar radiofrequency ablation of the medial branch L3-S1 patient will continue his current medications patient will follow in approximately 2 weeks for reevaluation.
== END 2019-08-26 08:42 | disposition home or self-care (01) ==
LOC: SDC 06:07 → AC 06:07
PROVIDERS: PCP Family Medicine; Referring Provider Anesthesiology Pain Medicine; Visit Provider Anesthesiology Pain Medicine
PROC: (CPT 64635; principal; 2019-08-26 07:15)
DX: M47.816 Spondylosis without myelopathy or radiculopathy, lumbar region (principal); M51.37 Other intervertebral disc degeneration, lumbosacral region; M47.817 Spondylosis without myelopathy or radiculopathy, lumbosacral region; F41.9 Anxiety disorder, unspecified; F32.9 Major depressive disorder, single episode, unspecified; Z85.51 Personal history of malignant neoplasm of bladder; Z86.718 Personal history of other venous thrombosis and embolism; K21.9 Gastro-esophageal reflux disease without esophagitis; Z79.899 Other long term (current) drug therapy; Z79.4 Long term (current) use of insulin; Z79.1 Long term (current) use of non-steroidal anti-inflammatories (NSAID); Z79.891 Long term (current) use of opiate analgesic; I10 Essential (primary) hypertension; F17.210 Nicotine dependence, cigarettes, uncomplicated
CPT/HCPCS: 01936; 64635; 64636 ×3; 72100; 76000; 82962; J7120

== ENCOUNTER → 2019-08-30 12:59 | Outpatient (CLI) | payer MEDICARE, MEDICAID, SELFPAY ==
[2019-08-14 10:27] VITALS: BMI 52.9
[2019-08-26 06:29] VITALS: BMI 52.0
--- NOTE | 2019-08-30 13:00 | CT_ITS ---
STUDY: CT CHEST WITHOUT CONTRAST REASON FOR EXAM: Male, 48 years old. PULMONARY NODULE F/U RADIATION DOSAGE (If Supplied By Facility): CTDIvol = ( 24.62 ) mGy, DLP = ( 783.24 ) mGycm TECHNIQUE: Transaxial imaging was performed without the administration of intravenous contrast material. Multiplanar coronal and sagittal images were reformatted. Individualized dose optimization techniques were used for this CT. COMPARISON: Comparison is made with prior examination dated August 28, 2018 FINDINGS: Small bilateral benign-appearing axillary lymph nodes. Stable 7 mm noncalcified nodule in the anterior aspect of the lingula medially. There is no demonstrated pleural abnormality. Normal heart and pericardium. There are multiple small lymph nodes within the mediastinum, which are normal in size and morphology most compatible with reactive lymph hyperplasia. Normal hilar regions. Normal unenhanced pulmonary arteries. Normal aorta arch and descending thoracic aorta. There are mild degenerative changes of the thoracic spine. There is no demonstrated abnormality of the visualized upper abdomen. CT/Chest without Contrast IMPRESSION: Stable noncalcified 7 mm nodule in the anterior medial aspect of the lingular segment of the left upper lobe. A follow-up examination in one year is recommended. Electronically Signed: Eliazar Funes, at 14:48 EDT , Service support ,
== END ==
PROVIDERS: PCP Family Medicine; Referring Provider Internal Medicine Critical Care Medicine; Visit Provider Internal Medicine Critical Care Medicine
DX: R91.1 Solitary pulmonary nodule (principal)
CPT/HCPCS: 71250

== ENCOUNTER 2019-11-11 06:55 | Day surgery (SDC) | payer MEDICARE, MEDICAID, SELFPAY ==
[2019-09-30 14:56] VITALS: BMI 52.0
[2019-11-11] VITALS (8 sets, daily range): BP systolic 113–125; BP diastolic 63–81; PULSE 64–73; RESP 18–20; TEMP 36.5–36.8; O2SAT 94–96; BMI 52.1
[2019-11-11] MEDS: Lactated Ringers 1,000 ML 100 ML IV (07:44)
--- NOTE | 2019-11-11 08:20 | RAD_ITS ---
PROCEDURE: Right radiofrequency ablation. DATE OF EXAMINATION: November 11, 2019. INDICATION: Male, 49 years old. Right-sided back pain. FLUOROSCOPY TIME (if supplied): (37.5 seconds) minutes/seconds. 7 intraoperative images were submitted. Intraoperative imaging provided for right-sided L3-S1 radiofrequency ablation. RAD/L/S Spine Min 4 Views IMPRESSION: Intraoperative imaging provided for right-sided L3-S1 radiofrequency ablation. Electronically Signed: Eliazar Funes, at 10:20 EDT , Service support ,
[2019-11-11] MEDS: Bupivacaine 0.25% 30 ML Vial (08:22)
[2019-11-11] MEDS: MethylPREDNISolone Acetate 80 MG/ML Vial (08:22)
[2019-11-11 10:33] LABS: Microalbumin,Random Urine 24.4 mg/L (NO RANGE EST.); Microalbumin:Creatinine Ratio 9.1 mg/g CRE (<30 mg/g CRE)
[2019-11-11 10:49] LABS: Rheumatoid Factor < 10.0 IU/mL (<15)
[2019-11-11 13:38] LABS: Hemoglobin A1c 5.6 % (3.8-5.6)
--- NOTE | 2019-11-11 14:17 | PCM.OPRPT ---
Report of Operation Date of Procedure: 11/11/19 Description of Surgical Findings:: PREOPERATIVE DIAGNOSIS: Lumbosacral spondylosis, lumbosacral degenerative disc disease, lumbar facet arthropathy POSTOPERATIVE DIAGNOSIS: Lumbosacral spondylosis, lumbosacral degenerative disc disease, lumbar facet arthropathy PROCEDURE PERFORMED: Right-sided lumbar radiofrequency ablation of the medial branch at L3, L4, L5, and S1. ANESTHESIA: MAC. BLOOD LOSS: Minimal. COMPLICATIONS: None. DESCRIPTION OF PROCEDURE: History and physical of today was reviewed. Risks and benefits of the procedure were explained. The patient understood and agreed to proceed. Informed consent was obtained. IV inserted per routine protocol. The patient was taken to the operating room and placed in the prone position with a pillow positioned underneath the abdomen. The right side of her lower back was prepped and draped in a sterile fashion using iodine x3. Under fluoroscopy guidance in an oblique view, the L3 through S1 vertebral bodies were visualized. The skin and subcutaneous tissue was anesthetized with approximately 10 mL of 1% lidocaine using a 25-gauge regular needle. Under direct visualization on fluoroscopy at approximately 25-degree angle, starting on the right L3, ending on the right S1, passing through the L4 and L5, using a 20-gauge 15-cm with a 10-mm curved active-tip radiofrequency ablation needle, the needle was passed through the skin. The tip of the needle was maneuvered and directed towards the superior medial gutter of the transverse process at the vicinity of the medial branch. Once the tip of the needle was in contact with the bone, the needle was pulled approximately 2 mm off the bone. The stylette of each needle was then removed. After negative aspiration of blood or CSF and confirmation on AP, oblique as well as lateral view, the radiofrequency ablation probe was then inserted at each level. Impedance was then recorded at L3 to be 241 ohm, at L4 to be 211 ohm, at L5 to be 219 ohm, and at S1 to be 328 ohm. Motor evoked potential was then initiated to 1.5 volt without any motor response at each corresponding level. The probe was then removed intact and a total of 6 mL of preservative-free 1% lidocaine was injected in divided doses between those four levels after negative aspiration of blood or CSF. The radiofrequency ablation probe was then reinserted. After confirmation on AP, oblique as well as lateral view, radiofrequency ablation was then initiated to 80 degree Celsius for 90 second at each level. Once concluded, the probe was then removed intact. A total of 6 mL of preservative-free 0.25% Marcaine with 40 mg of Depo-Medrol was injected in divided doses between those four levels. The needles were then removed intact. The patient experienced no sign or symptoms of intrathecal or intravascular injection. The patient experienced no paresthesia. The procedure was completed without any apparent difficulty or any complications. The patient appeared to tolerate it well. Sensory as well as motor exam was unchanged from prior to the procedure. ASSESSMENT AND PLAN: This is a 49-year-old male with lumbosacral spondylosis, lumbosacral degenerative disc disease, lumbar facet arthropathy status post right-sided lumbar radiofrequency ablation of the medial branch L3-S1, patient will continue his current medications patient will follow approximately 2 weeks for reevaluation.
[2019-11-12 20:07] LABS: Anti-Centromere B Ab <0.2 AI (0.0-0.9); Anti-Jo <0.2 AI (0.0-0.9); Anti-Scleroderma-70 AB <0.2 AI (0.0-0.9); SJOGREN'S Anti-SS-A test < 0.2 AI (0.0-0.9); SJOGREN'S Anti-SS-B test < 0.2 AI (0.0-0.9); Smith Ab <0.2 AI (0.0-0.9)
[2019-11-13 02:33] LABS: Anti-Nuclear Antibody Test Negative (.); Anti-dsDNA Ab 1 IU/mL (0-9)
[2019-11-13 03:06] LABS: Complement C3 169 mg/dL (82-167)
[2019-11-13 09:36] LABS: CCP IgG Antibodies 12 units (0-19)
== END 2019-11-11 09:35 | disposition home or self-care (01) ==
LOC: SDC 06:59 → AC 06:59
PROVIDERS: Internal Medicine Endocrinology, Diabetes & Metabolism; PCP Family Medicine; Referring Provider Anesthesiology Pain Medicine; Visit Provider Anesthesiology Pain Medicine
PROC: (CPT 64635; principal; 2019-11-11 08:05)
DX: M51.37 Other intervertebral disc degeneration, lumbosacral region (principal); M47.817 Spondylosis without myelopathy or radiculopathy, lumbosacral region; K21.9 Gastro-esophageal reflux disease without esophagitis; E11.9 Type 2 diabetes mellitus without complications; F41.9 Anxiety disorder, unspecified; F32.9 Major depressive disorder, single episode, unspecified; Z86.711 Personal history of pulmonary embolism; Z79.899 Other long term (current) drug therapy; Z79.01 Long term (current) use of anticoagulants; Z79.84 Long term (current) use of oral hypoglycemic drugs; I10 Essential (primary) hypertension; G47.30 Sleep apnea, unspecified; F17.210 Nicotine dependence, cigarettes, uncomplicated; Z79.891 Long term (current) use of opiate analgesic
CPT/HCPCS: 64635; 64636 ×3; 36415; 72110; 76000; 82043; 82570; 83036; 86038; 86160; 86200; 86225; 86235; 86431; J7120

== ENCOUNTER 2019-12-16 09:52 | Day surgery (SDC) | payer MEDICARE, MEDICAID, SELFPAY ==
[2019-11-11 07:29] VITALS: BMI 52.1
[2019-12-16] VITALS (8 sets, daily range): BP systolic 104–140; BP diastolic 63–87; PULSE 68–74; RESP 16; TEMP 36.3–37.1; O2SAT 95–99; BMI 52.5
[2019-12-16] MEDS: Lactated Ringers 1,000 ML 100 ML IV (10:30)
[2019-12-16 10:36] LABS: Bedside Glucose 120 mg/dL (70-110)
[2019-12-16] MEDS: Bupivacaine 0.25% 30 ML Vial (11:29)
[2019-12-16] MEDS: 0.9% Normal Saline (Pres. free 10 ML Vial (11:29)
[2019-12-16] MEDS: MethylPREDNISolone Acetate 80 MG/ML Vial (11:29)
--- NOTE | 2019-12-16 11:30 | RAD_ITS ---
STUDY: X-RAY - LUMBAR SPINE REASON FOR EXAM: Male, 49 years old. CAUDAL EPIDuRAL STEROIDS INJECTION TECHNIQUE: 3 coned-down intraoperative view(s) of the lumbar spine were obtained. COMPARISON: None FINDINGS: Intraoperative imaging provided for caudal epidural steroid injection. RAD/Lumbar Spine 2 or 3 Views IMPRESSION: Intraoperative imaging provided for caudal epidural steroid injection. Electronically Signed: Eliazar Funes, at 14:20 EDT , Service support ,
--- NOTE | 2019-12-16 11:36 | PCM.OPRPT ---
Report of Operation Date of Procedure: 12/16/19 Description of Surgical Findings:: PREOPERATIVE DIAGNOSIS: Lumbosacral radiculopathy, lumbosacral degenerative disc disease, lumbosacral spinal stenosis POSTOPERATIVE DIAGNOSIS: Lumbosacral radiculopathy, lumbosacral degenerative disc disease, lumbosacral spinal stenosis PROCEDURE PERFORMED: Caudal epidural steroid injection. ANESTHESIA: MAC. BLOOD LOSS: Minimal. COMPLICATIONS: None. DESCRIPTION OF PROCEDURE: History and physical of today was reviewed. Risks and benefits of the procedure were explained. The patient understood and agreed to proceed. Informed consent was obtained. IV inserted per routine protocol. The patient was taken to the operating room and placed in the prone position with a pillow positioned underneath the abdomen. The lower back and tailbone area was prepped and draped in a sterile fashion using iodine x3. Under fluoroscopy guidance on a lateral view, the caudal space was identified. The skin and subcutaneous tissue was anesthetized with approximately 3 mL of 1% lidocaine using a 25-gauge regular needle. Under direct visualization with fluoroscopy, using a 22-gauge 3-1/2-inch spinal needle, the needle was advanced via the skin through the sacral hiatus. The tip of the needle was passed through the sacrococcygeal ligament and advanced to approximately S4 area. After negative aspiration of blood or CSF, a total of 3 mL of contrast was injected to confirm correct placement of the needle as well as cephalad spread. The spread was followed to approximately L5 area. After confirmation on AP as well as lateral view and repeated negative aspiration, a total of 15 mL of preservative-free 0.125% Marcaine with 80 mg of Depo-Medrol was injected easily. The needle was then removed intact. The patient experienced no sign or symptoms of intrathecal or intravascular injection. The patient experienced no paresthesia. The procedure was completed without any apparent difficulty or any complications. The patient appeared to tolerate it well. ASSESSMENT AND PLAN: This is a 49-year-old male with lumbosacral radiculopathy, lumbosacral degenerative disc disease, lumbosacral spinal stenosis status post caudal epidural steroid injection patient will continue his current medications, patient will follow approximately 2 weeks for reevaluation.
== END 2019-12-16 12:32 | disposition home or self-care (01) ==
LOC: SDC 09:52 → AC 09:54
PROVIDERS: PCP Family Medicine; Referring Provider Anesthesiology Pain Medicine; Visit Provider Anesthesiology Pain Medicine
PROC: 3E0S3BZ Introduction of Anesthetic Agent into Epidural Space, Percutaneous Approach (ICD-10-PCS; CPT 62282; principal; 2019-12-16 11:25)
DX: M48.07 Spinal stenosis, lumbosacral region (principal); M51.17 Intervertebral disc disorders with radiculopathy, lumbosacral region; F41.9 Anxiety disorder, unspecified; F32.9 Major depressive disorder, single episode, unspecified; C67.9 Malignant neoplasm of bladder, unspecified; E11.9 Type 2 diabetes mellitus without complications; K21.9 Gastro-esophageal reflux disease without esophagitis; K44.9 Diaphragmatic hernia without obstruction or gangrene; Z79.899 Other long term (current) drug therapy; Z79.01 Long term (current) use of anticoagulants; Z79.84 Long term (current) use of oral hypoglycemic drugs; I10 Essential (primary) hypertension; F17.210 Nicotine dependence, cigarettes, uncomplicated; M51.36 Other intervertebral disc degeneration, lumbar region; Z79.891 Long term (current) use of opiate analgesic
CPT/HCPCS: 01922; 62323; 64483; 72100; 82962; J7120; J3490

== ENCOUNTER 2020-03-16 06:29 | Day surgery (SDC) | payer MEDICARE, MEDICAID, SELFPAY ==
[2020-02-11 13:44] VITALS: BMI 52.9
[2020-03-16] VITALS (8 sets, daily range): BP systolic 111–161; BP diastolic 54–87; PULSE 69–80; RESP 16–20; TEMP 36.5–36.6; O2SAT 94–96; BMI 55.0
[2020-03-16] MEDS: Lactated Ringers 1,000 ML 100 ML IV (07:20)
[2020-03-16 07:26] LABS: Bedside Glucose 141 mg/dL (70-110)
--- NOTE | 2020-03-16 08:10 | RAD_ITS ---
STUDY: X-RAY - LUMBAR SPINE REASON FOR EXAM: Male, 49 years old. radio frequency ablation L3-S1 RADIATION DOSAGE (If Supplied By Facility): CTDIvol = ( ) mGy, DLP = ( ) mGycm FLUOROSCOPY TIME (if supplied): (0:26) minutes/seconds TECHNIQUE: Intraoperative fluoroscopy. For intraoperative views. COMPARISON: None FINDINGS: Normal lumbar lordosis. There is no substantial scoliosis. There is a normal alignment of the vertebrae. Normal vertebral bodies and endplates. Normal disc space heights. The soft tissue structures are unremarkable. RAD/L/S Spine Min 4 Views IMPRESSION: Normal x-ray examination of the lumbar spine. Electronically Signed: Chapo Hernandez, at 11:07 EDT Tel , Service support ,
[2020-03-16] MEDS: MethylPREDNISolone Acetate 80 MG/ML Vial (08:13)
[2020-03-16] MEDS: Bupivacaine 0.25% 30 ML Vial (08:14)
--- NOTE | 2020-03-16 11:59 | PCM.OPRPT ---
Report of Operation Date of Procedure: 03/16/20 Description of Surgical Findings:: PREOPERATIVE DIAGNOSIS: Lumbosacral spondylosis, lumbosacral degenerative disc disease, lumbar facet arthropathy POSTOPERATIVE DIAGNOSIS: Lumbosacral spondylosis, lumbosacral degenerative disc disease, lumbar facet arthropathy PROCEDURE PERFORMED: Left-sided lumbar radiofrequency ablation of the medial branch at L3, L4, L5, and S1. ANESTHESIA: MAC. BLOOD LOSS: Minimal. COMPLICATIONS: None. DESCRIPTION OF PROCEDURE: History and physical of today was reviewed. Risks and benefits of the procedure were explained. The patient understood and agreed to proceed. Informed consent was obtained. IV inserted per routine protocol. The patient was taken to the operating room and placed in the prone position with a pillow positioned underneath the abdomen. The right side of her lower back was prepped and draped in a sterile fashion using iodine x3. Under fluoroscopy guidance in an oblique view, the L3 through S1 vertebral bodies were visualized. The skin and subcutaneous tissue was anesthetized with approximately 10 mL of 1% lidocaine using a 25-gauge regular needle. Under direct visualization on fluoroscopy at approximately 25-degree angle, starting on the left L3, ending on the left S1, passing through the L4 and L5, using a 20-gauge 15-cm with a 10-mm curved active-tip radiofrequency ablation needle, the needle was passed through the skin. The tip of the needle was maneuvered and directed towards the superior medial gutter of the transverse process at the vicinity of the medial branch. Once the tip of the needle was in contact with the bone, the needle was pulled approximately 2 mm off the bone. The stylette of each needle was then removed. After negative aspiration of blood or CSF and confirmation on AP, oblique as well as lateral view, the radiofrequency ablation probe was then inserted at each level. Impedance was then recorded at L3 to be 274 ohm, at L4 to be 278 ohm, at L5 to be 293 ohm, and at S1 to be 228 ohm. Motor evoked potential was then initiated to 1.5 volt without any motor response at each corresponding level. The probe was then removed intact and a total of 6 mL of preservative-free 1% lidocaine was injected in divided doses between those four levels after negative aspiration of blood or CSF. The radiofrequency ablation probe was then reinserted. After confirmation on AP, oblique as well as lateral view, radiofrequency ablation was then initiated to 80 degree Celsius for 90 second at each level. Once concluded, the probe was then removed intact. A total of 6 mL of preservative-free 0.25% Marcaine with 40 mg of Depo-Medrol was injected in divided doses between those four levels. The needles were then removed intact. The patient experienced no sign or symptoms of intrathecal or intravascular injection. The patient experienced no paresthesia. The procedure was completed without any apparent difficulty or any complications. The patient appeared to tolerate it well. Sensory as well as motor exam was unchanged from prior to the procedure. ASSESSMENT AND PLAN: This is a 49-year-old male with lumbosacral spondylosis, lumbosacral degenerative disc disease, lumbar facet arthropathy status post left-sided lumbar radiofrequency ablation of the medial branch L3-S1, patient will continue his current medications patient will follow approximately 2 weeks for reevaluation.
== END 2020-03-16 09:10 | disposition home or self-care (01) ==
LOC: SDC 06:30 → AC 06:30
PROVIDERS: PCP Family Medicine; Referring Provider Anesthesiology Pain Medicine; Visit Provider Anesthesiology Pain Medicine
PROC: (CPT 64635; principal; 2020-03-16 08:05)
DX: M47.817 Spondylosis without myelopathy or radiculopathy, lumbosacral region (principal); M51.37 Other intervertebral disc degeneration, lumbosacral region; Z79.899 Other long term (current) drug therapy; Z79.84 Long term (current) use of oral hypoglycemic drugs; Z79.51 Long term (current) use of inhaled steroids; Z79.01 Long term (current) use of anticoagulants; F17.210 Nicotine dependence, cigarettes, uncomplicated; I10 Essential (primary) hypertension; Z86.711 Personal history of pulmonary embolism; Z96.641 Presence of right artificial hip joint; Z79.891 Long term (current) use of opiate analgesic; E11.9 Type 2 diabetes mellitus without complications; F41.9 Anxiety disorder, unspecified; F32.9 Major depressive disorder, single episode, unspecified
CPT/HCPCS: 64635; 64636 ×3; 72110; 76000; 82962; J7120

== ENCOUNTER → 2020-10-20 08:04 | Outpatient (CLI) | payer MEDICARE, MEDICAID, SELFPAY ==
[2020-10-05 09:12] VITALS: BMI 56.1
--- NOTE | 2020-10-20 08:06 | CT_ITS ---
STUDY: CT CHEST WITHOUT CONTRAST REASON FOR EXAM: Male, 49 years old. Lung Nodule -- f/u imaging in October 2020 RADIATION DOSAGE (If Supplied By Facility): CTDIvol = ( 27.87 ) mGy, DLP = ( 1779.00 ) mGycm TECHNIQUE: Transaxial imaging was performed without the administration of intravenous contrast material. Multiplanar coronal and sagittal images were reformatted. Individualized dose optimization techniques were used for this CT. COMPARISON: Comparison is made with prior study 08/30/2019. FINDINGS: Stable 7 mm well-defined noncalcified nodule in the anterior aspect of the lingular segment along the medial aspect. This is seen on axial image #67. There is no demonstrated pleural abnormality. There are calcifications of the coronary arteries. There are multiple small lymph nodes within the mediastinum, which are normal in size and morphology most compatible with reactive lymph hyperplasia. Normal hilar regions. Normal unenhanced pulmonary arteries. Normal aorta arch and descending thoracic aorta. There are mild degenerative changes of the thoracic spine. There is no demonstrated abnormality of the visualized upper abdomen. CT/Chest without Contrast IMPRESSION: Stable 7 mm noncalcified nodule in the anterior medial aspect of the lingular segment of the left upper lobe. Electronically Signed: Eliazar Funes MD at 15:09 EDT , Service support ,
== END ==
PROVIDERS: PCP Family Medicine; Referring Provider Internal Medicine Critical Care Medicine; Visit Provider Internal Medicine Critical Care Medicine
DX: R91.1 Solitary pulmonary nodule (principal)
CPT/HCPCS: 71250

== ENCOUNTER 2020-11-30 08:17 | Day surgery (SDC) | payer MEDICARE, MEDICAID, SELFPAY ==
[2020-10-05 09:12] VITALS: BMI 56.1
[2020-11-30] VITALS (7 sets, daily range): BP systolic 111–160; BP diastolic 73–96; PULSE 81–89; RESP 16–20; TEMP 36.5–36.8; O2SAT 94–97; BMI 55.5
[2020-11-30] MEDS: Lactated Ringers 1,000 ML 100 ML IV (08:55)
[2020-11-30 09:35] LABS: Bedside Glucose 111 mg/dL (70-110)
--- NOTE | 2020-11-30 10:01 | RAD_ITS ---
PROCEDURE: Caudal epidural. DATE OF EXAMINATION: 11/30/2020. INDICATION: Male, 50 years old. Low back pain. FLUOROSCOPY TIME (if supplied): (11 seconds) minutes/seconds. One single image was obtained. RAD/Fluor Guidance for Spine Inj IMPRESSION: Intraoperative imaging provided for caudal epidural. Electronically Signed: Eliazar Funes MD at 9:44 EDT , Service support ,
[2020-11-30] MEDS: Lidocaine 1% (5 ml sdv) 5 ML Vial (10:10)
[2020-11-30] MEDS: MethylPREDNISolone Acetate 80 MG/ML Vial (10:10)
[2020-11-30] MEDS: Bupivacaine 0.25% 30 ML Vial (10:10)
[2020-11-30] MEDS: 0.9% Normal Saline (Pres. free 10 ML Vial (10:10)
--- NOTE | 2020-11-30 16:24 | OP.PCM_ITS ---
Report of Operation Date of Procedure: 11/30/20 Pre-Operative Diagnosis: Lumbosacral radiculopathy, lumbosacral degenerative di sc disease, lumbosacral spinal stenosis Post-Operative Diagnosis: Lumbosacral radiculopathy, lumbosacral degenerative disc disease, lumbosacral spinal stenosis Surgery/Procedure Performed:: Caudal epidural steroid injection under fluoroscopic guidance Type of Anesthesia: MAC Estimated Blood Loss (mL): Minimal Description of Procedure: DESCRIPTION OF PROCEDURE: History and physical of today was reviewed. Risks and benefits of the procedure were explained. The patient understood and agreed to proceed. Informed consent was obtained. IV inserted per routine protocol. The patient was taken to the operating room and placed in the prone position with a pillow positioned underneath the abdomen. The lower back and tailbone area was prepped and draped in a sterile fashion using iodine x3. Under fluoroscopy guidance on a lateral view, the caudal space was identified. The skin and subcutaneous tissue was anesthetized with approximately 3 mL of 1% lidocaine using a 25-gauge regular needle. Under direct visualization with fluoroscopy, using a 22-gauge 3-1/2-inch spinal needle, the needle was advanced via the skin through the sacral hiatus. The tip of the needle was passed through the sacrococcygeal ligament and advanced to approximately S4 area. After negative aspiration of blood or CSF, a total of 3 mL of contrast was injected to confirm correct placement of the needle as well as cephalad spread. The spread was followed to approximately L5 area. After confirmation on AP as well as lateral view and repeated negative aspiration, a total of 15 mL of preservative-free 0.125% Marcaine with 80 mg of Depo-Medrol was injected easily. The needle was then removed intact. The patient experienced no sign or symptoms of intrathecal or intravascular injection. The patient experienced no paresthesia. The procedure was completed without any apparent difficulty or any complications. The patient appeared to tolerate it well. ASSESSMENT AND PLAN: This is a 50-year-old male with lumbosacral radiculopathy, lumbosacral degenerative disc disease, lumbosacral spinal stenosis status post caudal epidural steroid injection, patient will continue his current medications, patient will follow in approximately 2 weeks for reevaluation. Complications None
== END 2020-11-30 11:05 | disposition home or self-care (01) ==
LOC: SDC 08:17 → AC 08:19
PROVIDERS: PCP Family Medicine; Referring Provider Anesthesiology Pain Medicine; Visit Provider Anesthesiology Pain Medicine
PROC: 3E0S3BZ Introduction of Anesthetic Agent into Epidural Space, Percutaneous Approach (ICD-10-PCS; CPT 62282; principal; 2020-11-30 10:05)
DX: M51.17 Intervertebral disc disorders with radiculopathy, lumbosacral region (principal); M48.07 Spinal stenosis, lumbosacral region; J45.909 Unspecified asthma, uncomplicated; F41.9 Anxiety disorder, unspecified; F32.9 Major depressive disorder, single episode, unspecified; E11.9 Type 2 diabetes mellitus without complications; K21.9 Gastro-esophageal reflux disease without esophagitis; Z86.718 Personal history of other venous thrombosis and embolism; E66.01 Morbid (severe) obesity due to excess calories; G47.33 Obstructive sleep apnea (adult) (pediatric); Z87.891 Personal history of nicotine dependence; Z79.899 Other long term (current) drug therapy; Z79.84 Long term (current) use of oral hypoglycemic drugs; M47.816 Spondylosis without myelopathy or radiculopathy, lumbar region; Z79.891 Long term (current) use of opiate analgesic; Z68.43 Body mass index [BMI] 50.0-59.9, adult
CPT/HCPCS: 01992; 62323; 64483; 77003; 82962; J7120; J3490

== ENCOUNTER → 2020-12-08 12:20 | Outpatient (CLI) | payer MEDICARE, MEDICAID, SELFPAY ==
[2020-12-08 05:47] VITALS: BMI 55.5
[2020-12-08 13:43] LABS: Microalbumin,Random Urine 5.5 mg/L (NO RANGE EST.); Microalbumin:Creatinine Ratio 8.1 mg/g CRE (<30 mg/g CRE)
[2020-12-08 14:02] LABS: ALB/GLOB Ratio 0.7 RATIO (0.9-2.4); AST(SGOT) 51 U/L (15-37); Alanine Aminotransfer ALT/SGPT 48 U/L (16-61); Albumin, Serum 3.4 g/dL (3.2-5.0); Alkaline Phosphatase 86 U/L (45-117); Anion Gap 7 (5-15); BUN 17 mg/dL (7-18); BUN/Creat Ratio 15.5 RATIO (10-20); Calcium,Total 8.5 mg/dL (8.5-10.1); Chloride 105 mmol/L (98-107); Cholesterol 175 mg/dL (200); EST Glomerular Filtration Rate 75 mL/min (>60); Est Glom Filt Rate - Afr Amer 91 mL/min (>60); Globulin 4.9 g/dL (2.2-4.2); Glucose 139 mg/dL (74-106); High Density Lipoprotein 36 mg/dL; Protein, Total 8.3 g/dL (6.4-8.2); Sodium Level 136 mmol/L (136-145); Thyroid Stim Hormone (TSH) 1.56 uIU/mL (0.358-3.74); Triglycerides 304 mg/dL; Very Low Density Lipoprotein 61 mg/dL (5-40)
== END ==
PROVIDERS: PCP Family Medicine; Referring Provider Internal Medicine Endocrinology, Diabetes & Metabolism; Visit Provider Internal Medicine Endocrinology, Diabetes & Metabolism
DX: E11.9 Type 2 diabetes mellitus without complications (principal); I10 Essential (primary) hypertension
CPT/HCPCS: 36415; 80053; 80061; 82043; 82570; 84443

== ENCOUNTER 2021-01-11 06:29 | Day surgery (SDC) | payer MEDICARE, MEDICAID, SELFPAY ==
[2020-12-08 15:38] VITALS: BMI 56.2
[2021-01-11] VITALS (8 sets, daily range): BP systolic 82–127; BP diastolic 65–93; PULSE 74–80; RESP 16; TEMP 36.3–36.4; O2SAT 93–99; BMI 56.7
[2021-01-11] MEDS: Lactated Ringers 1,000 ML 100 ML IV (06:35)
[2021-01-11 07:31] LABS: Bedside Glucose 133 mg/dL (70-110)
[2021-01-11] MEDS: MethylPREDNISolone Acetate 40 MG/ML Vial IM (08:08)
[2021-01-11] MEDS: Lidocaine 1% (30 ml sdv) 30 ML Vial (08:09)
[2021-01-11] MEDS: Bupivacaine 0.25% 30 ML Vial (08:09)
--- NOTE | 2021-01-11 08:10 | RAD_ITS ---
PROCEDURE: Epidural steroid injection DATE OF EXAMINATION: 01/12/2020 INDICATION: Male, 50 years old. PHYSICIAN: Dr.Jeffrey Clements FLUOROSCOPY TIME (if supplied): (28) /seconds 10 images obtained RADIATION DOSAGE (If Supplied By Facility): CONSENT: The risks, benefits and alternatives to the procedure were explained to the patient, and the patient agreed to the procedure and signed the consent. SEDATION: Performed by Dr. 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 PROCEDURE/TECHNIQUE: (All elements of maximal sterile barrier technique followed, including US elements as applicable) The risks, benefits, and alternatives to the procedure were explained to patient, and the patient agreed to the procedure and signed a consent form for the procedure. A timeout was performed to confirm the patient''s identity, the type of procedure, to be performed and the site of entry. RAD/Lumbar Spine 2 or 3 Views IMPRESSION: An epidural steroid injection was performed under the direction of Dr. LARSON. Electronically Signed: Bairon Eddy DO at 12:41 EDT Tel , Service support ,
--- NOTE | 2021-01-11 13:39 | PCM.OPRPT ---
Report of Operation Date of Procedure: 01/11/21 Pre-Operative Diagnosis: Lumbosacral spondylosis, lumbosacral degenerative disc disease, lumbar facet arthropathy Post-Operative Diagnosis: Lumbosacral spondylosis, lumbosacral degenerative disc disease, lumbar facet arthropathy Surgery/Procedure Performed:: Left-sided lumbar radiofrequency ablation of the medial branch L3, L4, L5, S1 Type of Anesthesia: MAC Estimated Blood Loss (mL): Minimal Description of Procedure: History and physical today was reviewed. Risks and benefits of procedure explained. The patient understood, agreed to the procedure and informed consent was obtained. IV inserted per routine protocol. The patient was taken to the operating room, placed in the prone position with a pillow positioned underneath the abdomen. The left side of the lower back was prepped and draped in a sterile fashion using iodine x 3. Under fluoroscopy guidance, on an oblique view, the L3 through S1 vertebral bodies were visualized. The skin and subcutaneous tissue was anesthetized with approximately 10 mL of 1% lidocaine using a 25-gauge regular needle. Under direct visualization with fluoroscopy at approximately 25-degree angle, starting on the left L3, ending on the left S1 passing through the L4-L5 using a 20-gauge 15 cm with a 10 mm curved active tip radiofrequency ablation needle the needle passed through the skin. The tip of the needle was maneuvered and directed towards the superior and medial gutter of the transverse process at the vicinity of the medial branch. Once the tip of the needle was in contact with the bone, the needle pulled approximately 2 mm up the bone. The stylet of each needle was then removed. After negative aspiration of blood with CSF and confirmation of AP as well as oblique view, radiofrequency ablation probe was then inserted at each level. Impedance was then recorded at L3 to be 206, at L4 261, at L5 227, at S1 213 ohm. Motor-evoked potential was then initiated to 1.5 volt without any motor response at each corresponding level. The probe was then removed intact and a total of 6 mL preservative-free 1% lidocaine was injected in divided doses between those 4 levels after negative aspiration of blood with CSF. The radiofrequency ablation probe was then reinserted after confirmation of AP, oblique as well as lateral view. Radiofrequency ablation was then initiated to 80 degrees Celsius for 90 seconds at each level. Once concluded, the probe was then removed intact and a total of 6 mL of preservative-free 0.25% Marcaine with 40 mg Depo-Medrol was injected in divided doses between those 4 levels. The needles were then removed intact. The patient experienced no signs or symptoms of intrathecal, intravascular injection. The patient experienced no paraesthesia. The procedure was completed without any apparent difficulty, any complication. The patient appeared to tolerate well. Sensory as well as motor exam was unchanged from prior to procedure. ASSESSMENT AND PLAN: This is a 50-year-old male with lumbosacral spondylosis, lumbosacral degenerative disc disease, lumbar facet arthropathy, status post left-sided lumbar radiofrequency ablation of the medial branch L3 through S1. The patient will continue his current medications. The patient will follow up in approximately 2 weeks for reevaluation. Complications None
== END 2021-01-11 09:31 | disposition home or self-care (01) ==
LOC: SDC 06:30 → AC 06:31
PROVIDERS: PCP Family Medicine; Referring Provider Anesthesiology Pain Medicine; Visit Provider Anesthesiology Pain Medicine
PROC: (CPT 64635; principal; 2021-01-11 08:05)
DX: M47.817 Spondylosis without myelopathy or radiculopathy, lumbosacral region (principal); M51.37 Other intervertebral disc degeneration, lumbosacral region; M51.16 Intervertebral disc disorders with radiculopathy, lumbar region; M47.26 Other spondylosis with radiculopathy, lumbar region; M46.96 Unspecified inflammatory spondylopathy, lumbar region; M48.061 Spinal stenosis, lumbar region without neurogenic claudication; I10 Essential (primary) hypertension; F32.9 Major depressive disorder, single episode, unspecified; E11.9 Type 2 diabetes mellitus without complications; K21.9 Gastro-esophageal reflux disease without esophagitis; F41.9 Anxiety disorder, unspecified; E66.01 Morbid (severe) obesity due to excess calories; Z68.43 Body mass index [BMI] 50.0-59.9, adult; K76.0 Fatty (change of) liver, not elsewhere classified; G47.33 Obstructive sleep apnea (adult) (pediatric); J45.909 Unspecified asthma, uncomplicated; M19.90 Unspecified osteoarthritis, unspecified site; I27.20 Pulmonary hypertension, unspecified; Z96.641 Presence of right artificial hip joint; Z86.74 Personal history of sudden cardiac arrest; Z86.718 Personal history of other venous thrombosis and embolism; Z86.711 Personal history of pulmonary embolism; Z79.4 Long term (current) use of insulin; Z79.891 Long term (current) use of opiate analgesic; Z79.899 Other long term (current) drug therapy
CPT/HCPCS: 64635; 64636 ×2; 72100; 76000; 82962; J7120

== ENCOUNTER 2021-03-01 05:41 | Day surgery (SDC) | payer MEDICARE, MEDICAID, SELFPAY ==
[2021-03-01] VITALS (7 sets, daily range): BP systolic 128–145; BP diastolic 75–98; PULSE 77–87; RESP 18; TEMP 36.3–36.9; O2SAT 94–99; BMI 57.2
[2021-03-01] MEDS: Lactated Ringers 1,000 ML 100 ML IV (06:33)
[2021-03-01 06:45] LABS: Bedside Glucose 132 mg/dL (70-110)
--- NOTE | 2021-03-01 07:30 | RAD_ITS ---
PROCEDURE: Left L3-S1 radiofrequency ablation. DATE OF EXAMINATION: 03/01/2021. INDICATION: Male, 50 years old. Chronic back pain. FLUOROSCOPY TIME (if supplied): (25 seconds) minutes/seconds. 10 fluoroscopic images were obtained. RAD/L/S Spine Min 4 Views IMPRESSION: Intraoperative imaging provided for left L3-S1 radiofrequency ablation. Electronically Signed: Eliazar Funes MD at 14:25 EDT , Service support ,
[2021-03-01] MEDS: Lidocaine 1% (30 ml sdv) 30 ML Vial (07:35)
[2021-03-01] MEDS: MethylPREDNISolone Acetate 40 MG/ML Vial IM (07:35)
[2021-03-01] MEDS: Bupivacaine 0.25% 30 ML Vial (07:35)
--- NOTE | 2021-03-01 13:02 | PCM.OPRPT ---
Report of Operation Date of Procedure: 03/01/21 Pre-Operative Diagnosis: Lumbosacral spondylosis, lumbosacral degenerative disc disease, lumbar facet arthropathy Post-Operative Diagnosis: Lumbosacral spondylosis, lumbosacral degenerative disc disease, lumbar facet arthropathy Surgery/Procedure Performed:: Left-sided lumbar radiofrequency ablation of the medial branch L3, L4, L5, S1 Type of Anesthesia: MAC Estimated Blood Loss (mL): Minimal Description of Procedure: History and physical today was reviewed. Risks and benefits of procedure explained. The patient understood, agreed to the procedure and informed consent was obtained. IV inserted per routine protocol. The patient was taken to the operating room, placed in the prone position with a pillow positioned underneath the abdomen. The left side of the lower back was prepped and draped in a sterile fashion using iodine x 3. Under fluoroscopy guidance, on an oblique view, the L3 through S1 vertebral bodies were visualized. The skin and subcutaneous tissue was anesthetized with approximately 10 mL of 1% lidocaine using a 25-gauge regular needle. Under direct visualization with fluoroscopy at approximately 25-degree angle, starting on the left L3, ending on the left S1 passing through the L4-L5 using a 20-gauge 15 cm with a 10 mm curved active tip radiofrequency ablation needle the needle passed through the skin. The tip of the needle was maneuvered and directed towards the superior and medial gutter of the transverse process at the vicinity of the medial branch. Once the tip of the needle was in contact with the bone, the needle pulled approximately 2 mm up the bone. The stylet of each needle was then removed. After negative aspiration of blood with CSF and confirmation of AP as well as oblique view, radiofrequency ablation probe was then inserted at each level. Impedance was then recorded at L3 to be 274, at L4 271, at L5 345, at S1 332 ohm. Motor-evoked potential was then initiated to 1.5 volt without any motor response at each corresponding level. The probe was then removed intact and a total of 6 mL preservative-free 1% lidocaine was injected in divided doses between those 4 levels after negative aspiration of blood with CSF. The radiofrequency ablation probe was then reinserted after confirmation of AP, oblique as well as lateral view. Radiofrequency ablation was then initiated to 80 degrees Celsius for 90 seconds at each level. Once concluded, the probe was then removed intact and a total of 6 mL of preservative-free 0.25% Marcaine with 40 mg Depo-Medrol was injected in divided doses between those 4 levels. The needles were then removed intact. The patient experienced no signs or symptoms of intrathecal, intravascular injection. The patient experienced no paraesthesia. The procedure was completed without any apparent difficulty, any complication. The patient appeared to tolerate well. Sensory as well as motor exam was unchanged from prior to procedure. ASSESSMENT AND PLAN: This is a 50-year-old male with lumbosacral spondylosis, lumbosacral degenerative disc disease, lumbar facet arthropathy, status post left-sided lumbar radiofrequency ablation of the medial branch L3 through S1. The patient will continue his current medications. The patient will follow up in approximately 2 weeks for reevaluation. Complications None
== END 2021-03-01 08:44 | disposition home or self-care (01) ==
LOC: SDC 05:43 → AC 05:43
PROVIDERS: PCP Family Medicine; Referring Provider Anesthesiology Pain Medicine; Visit Provider Anesthesiology Pain Medicine
PROC: (CPT 64635; principal; 2021-03-01 07:15)
DX: M47.817 Spondylosis without myelopathy or radiculopathy, lumbosacral region (principal); M47.816 Spondylosis without myelopathy or radiculopathy, lumbar region; M51.37 Other intervertebral disc degeneration, lumbosacral region; M51.36 Other intervertebral disc degeneration, lumbar region; F41.9 Anxiety disorder, unspecified; J45.909 Unspecified asthma, uncomplicated; E11.9 Type 2 diabetes mellitus without complications; F32.9 Major depressive disorder, single episode, unspecified; K21.9 Gastro-esophageal reflux disease without esophagitis; I10 Essential (primary) hypertension; E66.01 Morbid (severe) obesity due to excess calories; G47.33 Obstructive sleep apnea (adult) (pediatric); I27.20 Pulmonary hypertension, unspecified; F17.210 Nicotine dependence, cigarettes, uncomplicated; Z79.899 Other long term (current) drug therapy; Z79.84 Long term (current) use of oral hypoglycemic drugs; Z86.718 Personal history of other venous thrombosis and embolism; Z86.711 Personal history of pulmonary embolism; Z86.74 Personal history of sudden cardiac arrest; Z79.01 Long term (current) use of anticoagulants; Z68.43 Body mass index [BMI] 50.0-59.9, adult
CPT/HCPCS: 01992; 64635; 64636 ×2; 72110; 76000; 82962; J7120

== ENCOUNTER 2021-03-06 10:41 | Emergency (ER) | payer MEDICARE, MEDICAID, SELFPAY ==
[2021-03-06 10:42] VITALS: BP 124/91; PULSE 93; RESP 16; TEMP 35.7; O2SAT 94; BMI 57.2
--- NOTE | 2021-03-06 11:19 | RAD_ITS ---
STUDY: X-RAY - RIGHT FOOT CLINICAL: Male, 50 years old. Injury/Pain TECHNIQUE: 3 view(s) of the foot. COMPARISON: None. FINDINGS: Normal talus, calcaneus, and tarsal bones. Normal visualized subtalar, talonavicular, calcaneocuboid, tarsal and tarsometatarsal articulations. Normal metatarsi. Normal metatarsophalangeal joint of the great toe. Normal tibial and fibular sesamoid bones. Normal interphalangeal joint of the great toe. Normal phalanges of the great toe. Normal second through fifth metatarsophalangeal joints. Normal interphalangeal joints and phalanges of the lesser toes. The soft tissue structures are unremarkable. RAD/Foot min 3 Views IMPRESSION: Normal x-ray examination of the foot. Electronically Signed: Lenny Marquez MD at 12:48 EDT Tel , Service support ,
[2021-03-06] MEDS: oxyCODONE 5 MG Tablet PO (11:23)
--- NOTE | 2021-03-06 12:40 | ED.VIS.LOWEX ---
HPI History of Present Illness HPI Narrative: Patient presents with right foot injury that occurred last night. Patient states he kicked a chair. Patient states that today his pain is worse with any weightbearing or any palpation. Patient describes his pain is constant aching. Patient states when he bears weight it is sharp and stabbing. Patient denies any paresthesias or weakness. Patient denies any other injuries. Chief Complaint: Lower Extremity Injury Informant: patient Occured/Mechanism Mechanism/Context: Yes blunt trauma Onset/Context/Timing Onset: Yesterday Context: Sudden Onset Timing: Continuous Quality of Pain: Sharp, Aching and Throbbing Worsened by: Weightbearing and palpation Relieved by: Nothing Associated Symptoms Associated Symptoms: Negative for Parasthesia and Weakness PFSH [facility] Medical History (Updated 03/06/21 @ 13:[address] Jt Foy, ) Abnormal stress test Anxiety Asthma Bladder cancer Chest pain Colitis Degeneration of lumbosacral intervertebral disc Depression Diabetes mellitus, type II, insulin dependent DVT (deep venous thrombosis) Dyspnea Dyspnea on exertion GERD (gastroesophageal reflux disease) History of acute respiratory failure (01/29/16) History of DVT (deep vein thrombosis) History of pulmonary embolus (PE) Hx of cardiac arrest (01/29/16) Hypertension Insomnia Left ventricular hypertrophy Long-term insulin use Lumbosacral radiculopathy Lumbosacral spondylosis Morbid obesity NAFL (nonalcoholic fatty liver) Obesity Obstructive sleep apnea Osteoarthritis Palpitations Premature ventricular contraction Pulmonary embolism Pulmonary hypertension Restrictive lung disease Tear of medial meniscus of left knee Tobacco dependence in remission Tricuspid regurgitation Ventral hernia VTE (venous thromboembolism) Home Medications omeprazole 20 mg PO BID #120 cap 08/09/17 [Rx Last Taken 03/01/21 04:30] gabapentin 600 mg PO TIDCM 08/23/17 [History Last Taken 08/23/17 08:00] atenolol 50 mg PO BID 09/07/17 [History Last Taken 03/01/21 04:30] oxycodone-acetaminophen 1 tab PO BID PRN 01/26/18 [History Last Taken Unknown] metaxalone 800 mg PO TID 01/22/19 [History Last Taken Unknown] furosemide 20 mg tablet 40 mg PO DAILY 04/23/19 [History Last Taken Unknown] losartan 50 mg tablet 50 mg PO DAILY #90 tablet 09/21/20 [Rx Last Taken Unknown] rivaroxaban 20 mg tablet 20 mg PO DAILY tablet 10/05/20 [History Last Taken Unknown] albuterol sulfate 90 mcg/actuation aerosol inhaler 2 puff INHALATION Q4H PRN #1 ea 12/08/20 [Rx Last Taken Unknown] fluoxetine 20 mg PO DAILY 03/01/21 [History Last Taken Unknown] glimepiride 2 mg tablet 2 mg PO TID #270 tab 03/02/21 [Rx Last Taken Unknown] Trulicity 1.5 mg/0.5 mL subcutaneous pen injector 1.5 mg SC QWEEK #2 ml NS 03/04/21 [Rx Last Taken Unknown] metformin 1,000 mg tablet 1,000 mg PO BIDCM #180 tab 03/04/21 [Rx Last Taken Unknown] Allergy/AdvReac Type Severity Reaction Status Date / Time quinine Allergy Hives Verified 03/06/21 10:42 morphine AdvReac vein Verified 03/06/21 10:42 irritation Family History (Reviewed 12/08/20 @ 13:19 by Halina Bosch [employer]LECT[employer] MAINTENA[employer] WORKER, [employer]LECT[employer] MAINTENANCE WORKER-C) Father Sudden cardiac Surgical History History of appendectomy History of hip replacement History of knee surgery History of left heart catheterization (06/27/14) lt foot reconstruction Social History Smoking Status: Current every day smoker tobacco type: cigarettes Tobacco: How many years used: 35 how long ago did patient quit smokin, 1.5ppd second hand exposure: Yes quit status: quit date established alcohol intake: current alcohol intake frequency: a few times a month Alcohol type: beer substance use type: does not use caffeine: Yes Type: coffee Number of servings: 2 ROS ROS ED Constitutional Constitutional ED: Denies chills or fever(s) Eyes Eyes: Denies blurry vision or change in vision ENT ENT ED: Denies rhinorrhea or sore throat Cardiovascular Cardiovascular: Denies chest pain or palpitations Respiratory/Chest Respiratory/Chest: Denies cough or dyspnea Gastrointestinal Gastrointestinal: Denies nausea or vomiting Genitourinary Genitourinary ED: Denies dysuria or hematuria Musculoskeletal Musculoskeletal: Denies back pain or neck pain Integumentary Denies abscess or rash Neurologic Neurologic: Denies headache(s) or weakness Allergic/Immunologic Allergic/Immunologic ED: Denies mouth swelling or urticaria EXAM Physical Exam Const Vital Signs: 03/06/21 10:42 Temperature 96.3 F L Temperature Source Temporal Pulse Rate 93 Respiratory Rate 16 Blood Pressure 124/91 H Blood Pressure Mean 102 Pulse Ox 94 Oxygen Delivery Method Room Air Positive well nourished, well developed and obese General Appearance ED: well developed Nutritional Appearance: obese HEENT Reports moist mucous membranes Neck full ROM and supple Extremity Extremity Narrative: There is tenderness, edema, and ecchymosis over the dorsal aspect of the right foot. There is no bony crepitance or step-off. There is no obvious deformity noted. Range of motion was limited in all motions of the right foot secondary to pain. Sensation was intact to light touch. Capillary refill is less than 2 seconds in all digits. Neuro oriented x3, CN's II-XII intact bilaterally, moves all extremities and no sensory deficits noted Sensorium / Orientation: alert Motor Exam: strength 5/5 throughout Psych mental status grossly normal MDM MDM MDM Narrative Medical decision making narrative: Patient was given a dose of oxycodone here. X-rays of the right foot were obtained. There are 3 views. On my interpretation, there is no acute fracture. There is no dislocation. There is some mild soft tissue swelling. Radiologist also interpreted the x-rays and agrees. Patient was advised of his findings. Patient was instructed to ice and elevate the right foot. Patient states he has crutches and a walker at home. Patient was instructed to use these to weight-bear as tolerated. Patient was instructed to continue Tylenol or ibuprofen as needed for pain. Patient was instructed return if worse in any way. Patient was instructed to follow-up with his primary care physician in 5 to 7 days. Patient understood and was agreeable with the plan. All questions were answered. Radiography Diagnostic Testing: Radiology Impression Foot X-Ray 03/06/21 11:19 IMPRESSION: Normal x-ray examination of the foot. Electronically Signed: Lenny Marquez MD at 12:48 EDT Tel , Service support , Discharge Plan Triage Chief Complaint: Lower Extremity Injury ED Provider: Jt Foy Dx/Rx/DC Orders Clinical Impression: Contusion of right foot Instructions: ED Foot Contusion Prescriptions: No Action furosemide 20 mg tablet 40 mg PO DAILY RF: 0 albuterol sulfate 90 mcg/actuation HFA aerosol inhaler 2 puff INHALATION Q4H PRN (Reason: shortness of breath or wheezing) Qty: 1 RF: 6 rivaroxaban 20 mg tablet 20 mg PO DAILY RF: 0 omeprazole 20 MG capsule 20 mg PO BID Qty: 120 RF: 0 gabapentin 600 MG tablet 600 mg PO TIDCM RF: 0 atenolol 50 MG tablet 50 mg PO BID RF: 0 oxycodone-acetaminophen 1 TABLET tablet 1 tab PO BID PRN (Reason: Pain) RF: 0 metaxalone 800 MG tablet 800 mg PO TID RF: 0 fluoxetine 20 mg Tablet 20 mg PO DAILY RF: 0 losartan 50 mg tablet 50 mg PO DAILY Qty: 90 RF: 3 glimepiride 2 mg tablet 2 mg PO TID Qty: 270 RF: 1 metformin 1,000 mg tablet 1,000 mg PO BIDCM Qty: 180 RF: 1 Trulicity 1.5 mg/0.5 mL pen injector 1.5 mg SC QWEEK Qty: 2 RF: 5 Primary Care Provider: Bairon Freed Referrals: Bairon Freed MD [Primary Care Provider] - 5-7 Days Disposition Disposition: Home, Self Care
[2021-03-06 13:47] VITALS: BP 149/78; PULSE 82; RESP 16; O2SAT 97
== END 2021-03-06 13:48 | disposition home or self-care (01) ==
PROVIDERS: Emergency Provider Emergency Medicine; PCP Family Medicine
DX: S90.31XA Contusion of right foot, initial encounter (principal); F17.210 Nicotine dependence, cigarettes, uncomplicated; E66.9 Obesity, unspecified; W22.03XA Walked into furniture, initial encounter
CPT/HCPCS: 73630; 99283

== ENCOUNTER → 2021-03-08 12:42 | Outpatient (CLI) | payer MEDICARE, MEDICAID, SELFPAY ==
[2020-12-08 13:41] VITALS: BMI 56.2
--- NOTE | 2021-03-08 15:05 | PFTCOMP ---
COMPLETE PULMONARY FUNCTION TEST INTERPRETATION Brief HPI: Patient is a 50 year old male, currently under the care of Dr. Astorga, who presents to [facility] for complete pulmonary function tests secondary to diagnosis of asthma. Respiratory therapist reports good effort and reproducible results. Interpretation: Forced expiration spirometry shows no large airways obstructive ventilatory defect with an FEV1 of 84% predicted. There is no significant bronchodilator response by strict ATS criteria. Spirograms are of good quality and plateau normally. The respiratory flow volume loop shows a normal pattern. Lung volumes by body plethysmography show a decreased total lung capacity at 5.37 L, 76% predicted. All other lung volumes are reduced symmetrically. Diffusion capacity by carbon monoxide is normal at 86% predicted. The airway resistance is slightly elevated. Compared to previous pulmonary function tests from 10/02/2018, there is been a significant reduction in FEV1 by 17%, but improved air trapping with hyperinflation. Impression: Mild restrictive ventilatory defect with significant changes compared to 2019.
== END ==
PROVIDERS: PCP Family Medicine; Visit Provider Nurse Practitioner Acute Care
DX: J45.909 Unspecified asthma, uncomplicated (principal)
CPT/HCPCS: 94060; 94726; 94729

== ENCOUNTER 2021-03-29 08:28 | Day surgery (SDC) | payer MEDICARE, MEDICAID, SELFPAY ==
[2021-03-29] VITALS (7 sets, daily range): BP systolic 110–157; BP diastolic 62–92; PULSE 82–88; RESP 16; TEMP 36.6; O2SAT 95–97; BMI 62.4
[2021-03-29] MEDS: Lactated Ringers 1,000 ML 100 ML IV (09:10)
[2021-03-29 09:35] LABS: Bedside Glucose 129 mg/dL (70-110)
[2021-03-29] MEDS: Bupivacaine 0.25% 30 ML Vial (09:39)
[2021-03-29] MEDS: MethylPREDNISolone Acetate 80 MG/ML Vial (09:39)
[2021-03-29] MEDS: Lidocaine 1% (20 ml mdv) 20 ML Vial (09:41)
--- NOTE | 2021-03-29 09:57 | OP.PCM_ITS ---
Report of Operation Date of Procedure: 03/29/21 Pre-Operative Diagnosis: Lumbosacral radiculopathy, lumbosacral degenerative di sc disease, lumbosacral spinal stenosis Post-Operative Diagnosis: Lumbosacral radiculopathy, lumbosacral degenerative disc disease, lumbosacral spinal stenosis Surgery/Procedure Performed:: Caudal epidural steroid injection under fluoroscopic guidance Type of Anesthesia: MAC Estimated Blood Loss (mL): Minimal Description of Procedure: DESCRIPTION OF PROCEDURE: History and physical of today was reviewed. Risks and benefits of the procedure were explained. The patient understood and agreed to proceed. Informed consent was obtained. IV inserted per routine protocol. The patient was taken to the operating room and placed in the prone position with a pillow positioned underneath the abdomen. The lower back and tailbone area was prepped and draped in a sterile fashion using iodine x3. Under fluoroscopy guidance on a lateral view, the caudal space was identified. The skin and subcutaneous tissue was anesthetized with approximately 3 mL of 1% lidocaine using a 25-gauge regular needle. Under direct visualization with fluoroscopy, using a 22-gauge 3-1/2-inch spinal needle, the needle was advanced via the skin through the sacral hiatus. The tip of the needle was passed through the sacrococcygeal ligament and advanced to approximately S4 area. After negative aspiration of blood or CSF, a total of 3 mL of contrast was injected to confirm correct placement of the needle as well as cephalad spread. The spread was followed to approximately L5 area. After confirmation on AP as well as lateral view and repeated negative aspiration, a total of 15 mL of preservative-free 0.125% Marcaine with 80 mg of Depo-Medrol was injected easily. The needle was then removed intact. The patient experienced no sign or symptoms of intrathecal or intravascular injection. The patient experienced no paresthesia. The procedure was completed without any apparent difficulty or any complications. The patient appeared to tolerate it well. ASSESSMENT AND PLAN: This is a 50-year-old male with lumbosacral radiculopathy, lumbosacral degenerative disc disease, lumbosacral spinal stenosis status post caudal epidural steroid injection, patient will continue his current medications, patient will follow in approximately 2 weeks for reevaluation. Complications None
--- NOTE | 2021-03-29 10:10 | RAD_ITS ---
PROCEDURE: Caudal block. DATE OF EXAMINATION: 03/29/2021. INDICATION: Male, 50 years old. Low back pain. FLUOROSCOPY TIME (if supplied): (14 seconds) minutes/seconds. 2 images were submitted. RAD/Fluor Guidance for Spine Inj IMPRESSION: Intraoperative imaging provided for caudal block. Electronically Signed: Eliazar Funes MD at 15:47 EDT , Service support ,
== END 2021-03-29 10:41 | disposition home or self-care (01) ==
LOC: SDC 08:29 → AC 08:29
PROVIDERS: PCP Family Medicine; Referring Provider Anesthesiology Pain Medicine; Visit Provider Anesthesiology Pain Medicine
PROC: 3E0S3BZ Introduction of Anesthetic Agent into Epidural Space, Percutaneous Approach (ICD-10-PCS; CPT 62282; principal; 2021-03-29 10:05)
DX: M51.17 Intervertebral disc disorders with radiculopathy, lumbosacral region (principal); M48.07 Spinal stenosis, lumbosacral region; K71.8 Toxic liver disease with other disorders of liver; T37.5X5A Adverse effect of antiviral drugs, initial encounter; J45.909 Unspecified asthma, uncomplicated; G47.33 Obstructive sleep apnea (adult) (pediatric); E11.9 Type 2 diabetes mellitus without complications; E66.01 Morbid (severe) obesity due to excess calories; K21.9 Gastro-esophageal reflux disease without esophagitis; M19.90 Unspecified osteoarthritis, unspecified site; Z86.718 Personal history of other venous thrombosis and embolism; Z79.899 Other long term (current) drug therapy; Z86.711 Personal history of pulmonary embolism; Z86.74 Personal history of sudden cardiac arrest
CPT/HCPCS: 01992; 62323; 64483; 77003; 82962; J7120; J2405; J3490

== ENCOUNTER → 2021-10-25 | Outpatient (CLI) | payer MEDICARE, MEDICAID, SELFPAY ==
--- NOTE | 2021-10-25 07:42 | CT_ITS ---
STUDY: LOW DOSE CT LUNG CANCER SCREENING REASON FOR EXAM: Male, 50 years old. Tobacco Dependency. Patient smokes 1 pack per day for 33 years. History of recurrent bladder carcinoma. RADIATION DOSAGE (If Supplied By Facility): CTDIvol = ( 3.18 ) mGy, DLP = ( 106.02 ) mGycm TECHNIQUE: No contrast was administered. Low dose technique was utilized (average mAS-38 and kVp 120). 1.25 mm axial source images with a slice interval of 1.25-mm were reconstructed in lung windows. 2.5 mm axial source images with a slice interval of 2.5-mm were reconstructed in lung windows. 5.0 mm axial source images with a slice interval of 5.0-mm were reconstructed in soft tissue windows. COMPARISON: Comparison is made with prior study dated 10/20/2020 NODULES: Stable 7 mm well-defined noncalcified nodule in the anterior medial aspect of the lingular segment of the left upper lobe as seen on axial image #134. Emphysema: Mild scarring in the anterior medial aspect of the right upper lobe. Endobronchial lesion: None Aorta: No significant plaque calcification is seen. CORONARY ARTERIES: Coronary artery calcification Heart: Unremarkable Pulmonary artery: Unremarkable Mediastinal nodes: Stable small benign-appearing mediastinal lymph nodes. Other chest and abdominal findings: CT/Low Dose CT Lung Screening IMPRESSION: Lung-RADS category 2 - Continue annual screening with LDCT in 12 months. IMPORTANT NOTES FOR USE: ACR Lung-RADS Version 1.1 Assessment Categories Release Date: 2018 Category: Coded 0-4 bases on nodule(s) with highest degree of suspicion. Negative screen is defined as categories 1 and 2; a positive screen is defined as categories 3 and 4. Category 3 and 4A nodules that are unchanged on interval CT should be coded as category 2, and individuals returned to screening in 12 months. Category 4X: Category 3 or 4 nodules with additional imaging findings that increase the suspicion of lung cancer, such as spiculation, GGN that doubles in size in 1 year, enlarged lymph notes, etc. Category Modifiers: S (significant finding unrelated to lung cancer) Electronically Signed: Eliazar Funes MD at 9:12 EDT ,
== END | disposition home or self-care (01) ==
LOC: CT 07:40
PROVIDERS: PCP Physician Assistant; Visit Provider Internal Medicine Critical Care Medicine
DX: F17.210 Nicotine dependence, cigarettes, uncomplicated (principal)
CPT/HCPCS: 71271

== ENCOUNTER 2021-11-29 06:24 | Day surgery (SDC) | payer MEDICARE, MEDICAID, SELFPAY ==
[2021-11-29] VITALS (9 sets, daily range): BP systolic 109–131; BP diastolic 75–91; PULSE 72–85; RESP 16; TEMP 35.7–37.1; O2SAT 96–99; BMI 56.0
[2021-11-29 07:01] LABS: Bedside Glucose 128 mg/dL (74-106)
[2021-11-29] MEDS: Lactated Ringers 1,000 ML 15 ML IV (07:18)
--- NOTE | 2021-11-29 07:55 | RAD_ITS ---
EXAM: XR LUMBOSACRAL SPINE, 2 OR 3 VIEWS CLINICAL INDICATION: RADIO FREQ ABLATION L4-S1, LEFT TECHNIQUE: Frontal and lateral views of the lumbar spine and sacrum. This report was created using [employer] report [employer] technology. COMPARISON: None. FINDINGS: VERTEBRAE: 5 fluoroscopic spot views of the lumbar spine obtained during localization for facet joint injections. Total of 22.7 seconds of fluoroscopy time. Calculated radiation dose,19.87MGY. RAD/Lumbar Spine 2 or 3 Views IMPRESSION: As above. Electronically Signed: Pepito Willams MD at 16:49 EDT ,
[2021-11-29] MEDS: Lidocaine 1% (5 ml sdv) 5 ML Vial ×2 (07:56→08:27)
[2021-11-29] MEDS: Bupivacaine Mpf 0.5% 30 ML VIAL (08:24)
[2021-11-29] MEDS: MethylPREDNISolone Acetate 40 MG/ML Vial IM (08:24)
[2021-11-29] MEDS: 0.9% Normal Saline (Pres. free 10 ML Vial (08:24)
--- NOTE | 2021-11-29 15:31 | PCM.OPRPT ---
Report of Operation Date of Procedure: 11/29/21 Pre-Operative Diagnosis: Lumbosacral spondylosis, lumbosacral degenerative disc disease, lumbar facet arthropathy Post-Operative Diagnosis: Lumbosacral spondylosis, lumbosacral degenerative disc disease, lumbar facet arthropathy Surgery/Procedure Performed:: Left-sided lumbar radiofrequency ablation of the medial branch L4, L5, S1 Type of Anesthesia: MAC Estimated Blood Loss (mL): Minimal Description of Procedure: History and physical today was reviewed. Risks and benefits of procedure explained. The patient understood, agreed to the procedure and informed consent was obtained. IV inserted per routine protocol. The patient was taken to the operating room, placed in the prone position with a pillow positioned underneath the abdomen. The left side of the lower back was prepped and draped in a sterile fashion using iodine x 3. Under fluoroscopy guidance, on an oblique view, the L3 through S1 vertebral bodies were visualized. The skin and subcutaneous tissue was anesthetized with approximately 10 mL of 1% lidocaine using a 25-gauge regular needle. Under direct visualization with fluoroscopy at approximately 25-degree angle, starting on the left L3, ending on the left S1 passing through the L4-L5 using a 20-gauge 15 cm with a 10 mm curved active tip radiofrequency ablation needle the needle passed through the skin. The tip of the needle was maneuvered and directed towards the superior and medial gutter of the transverse process at the vicinity of the medial branch. Once the tip of the needle was in contact with the bone, the needle pulled approximately 2 mm up the bone. The stylet of each needle was then removed. After negative aspiration of blood with CSF and confirmation of AP as well as oblique view, radiofrequency ablation probe was then inserted at each level. Impedance was then recorded at L3 to be 237, at L4 262, at L5 287, at S1 298 ohm. Motor-evoked potential was then initiated to 1.5 volt without any motor response at each corresponding level. The probe was then removed intact and a total of 6 mL preservative-free 1% lidocaine was injected in divided doses between those 4 levels after negative aspiration of blood with CSF. The radiofrequency ablation probe was then reinserted after confirmation of AP, oblique as well as lateral view. Radiofrequency ablation was then initiated to 80 degrees Celsius for 90 seconds at each level. Once concluded, the probe was then removed intact and a total of 6 mL of preservative-free 0.25% Marcaine with 40 mg Depo-Medrol was injected in divided doses between those 4 levels. The needles were then removed intact. The patient experienced no signs or symptoms of intrathecal, intravascular injection. The patient experienced no paraesthesia. The procedure was completed without any apparent difficulty, any complication. The patient appeared to tolerate well. Sensory as well as motor exam was unchanged from prior to procedure. ASSESSMENT AND PLAN: This is a 51-year-old male with lumbosacral spondylosis, lumbosacral degenerative disc disease, lumbar facet arthropathy, status post left-sided lumbar radiofrequency ablation of the medial branch L3 through S1. The patient will continue his current medications. The patient will follow up in approximately 2 weeks for reevaluation. Complications None
== END 2021-11-29 09:35 | disposition home or self-care (01) ==
LOC: SDC 06:25 → AC 06:26
PROVIDERS: PCP Physician Assistant; Referring Provider Anesthesiology Pain Medicine; Visit Provider Anesthesiology Pain Medicine
PROC: (CPT 64635; principal; 2021-11-29 08:05)
DX: M51.37 Other intervertebral disc degeneration, lumbosacral region (principal); E11.9 Type 2 diabetes mellitus without complications; M47.816 Spondylosis without myelopathy or radiculopathy, lumbar region; M47.817 Spondylosis without myelopathy or radiculopathy, lumbosacral region
CPT/HCPCS: 64635; 64636 ×2; 72100; 76000; 82962; J7120; J2405; J3490

== ENCOUNTER 2022-01-24 05:41 | Day surgery (SDC) | payer MEDICARE, MEDICAID, SELFPAY ==
[2022-01-24] VITALS (7 sets, daily range): BP systolic 106–133; BP diastolic 66–85; PULSE 74–85; RESP 16–20; TEMP 36.1–36.2; O2SAT 94–98; BMI 49.2
[2022-01-24] MEDS: Lactated Ringers 1,000 ML 15 ML IV (06:35)
--- NOTE | 2022-01-24 07:30 | RAD_ITS ---
STUDY: INTRAOPERATIVE FLUOROSCOPY TECHNIQUE: The examination was performed with referring physician in attendance. Under fluoroscopic observation, fluoroscopic images were obtained. Radiologist was not present for the study. Radiologist did not perform the procedure. This dictation is for documentation of the radiation dosage only. There is no interpretation of the images. TOTAL NUMBER OF IMAGES: 1 COMPARISON: None RADIATION DOSE: 17.6 mGy FLUOROSCOPY TIME: 25 seconds REASON FOR EXAM: LUMBAR RADIO FREQ ABLATION Male, 51 years old. FINDINGS: Images of the lumbar spine. Injection needle visualized at multiple levels of the lumbar spine. RAD/Lumbar Spine 2 or 3 Views IMPRESSION: Fluoroscopic assistance images were obtained. Dictation for documentation purposes only. Electronically Signed: Stanley Cordero MD at 15:32 EDT ,
[2022-01-24 07:35] LABS: Bedside Glucose 124 mg/dL (74-106)
[2022-01-24] MEDS: Lidocaine 1% (5 ml sdv) 5 ML Vial (07:40)
[2022-01-24] MEDS: MethylPREDNISolone Acetate 40 MG/ML Vial IM (07:40)
[2022-01-24] MEDS: Bupivacaine 0.25% 30 ML Vial (07:40)
--- NOTE | 2022-01-24 08:07 | PCM.OPRPT ---
Report of Operation Date of Procedure: 01/24/22 Pre-Operative Diagnosis: Lumbosacral spondylosis, lumbosacral degenerative disc disease, lumbar facet arthropathy Post-Operative Diagnosis: Lumbosacral spondylosis, lumbosacral degenerative disc disease, lumbar facet arthropathy Surgery/Procedure Performed:: Right-sided lumbar radiofrequency ablation of the medial branch L4, L5, S1 Type of Anesthesia: MAC Estimated Blood Loss (mL): Minimal Description of Procedure: History and physical today was reviewed. Risks and benefits of procedure explained. The patient understood, agreed to the procedure and informed consent was obtained. IV inserted per routine protocol. The patient was taken to the operating room, placed in the prone position with a pillow positioned underneath the abdomen. The right side of the lower back was prepped and draped in a sterile fashion using iodine x 3. Under fluoroscopy guidance, on an oblique view, the L3 through S1 vertebral bodies were visualized. The skin and subcutaneous tissue was anesthetized with approximately 10 mL of 1% lidocaine using a 25-gauge regular needle. Under direct visualization with fluoroscopy at approximately 25-degree angle, starting on the right L3, ending on the right S1 passing through the L4-L5 using a 20-gauge 15 cm with a 10 mm curved active tip radiofrequency ablation needle the needle passed through the skin. The tip of the needle was maneuvered and directed towards the superior and medial gutter of the transverse process at the vicinity of the medial branch. Once the tip of the needle was in contact with the bone, the needle pulled approximately 2 mm up the bone. The stylet of each needle was then removed. After negative aspiration of blood with CSF and confirmation of AP as well as oblique view, radiofrequency ablation probe was then inserted at each level. Impedance was then recorded at L3 to be 255, at L4 269, at L5 276, at S1 311 ohm. Motor-evoked potential was then initiated to 1.5 volt without any motor response at each corresponding level. The probe was then removed intact and a total of 6 mL preservative-free 1% lidocaine was injected in divided doses between those 4 levels after negative aspiration of blood with CSF. The radiofrequency ablation probe was then reinserted after confirmation of AP, oblique as well as lateral view. Radiofrequency ablation was then initiated to 80 degrees Celsius for 90 seconds at each level. Once concluded, the probe was then removed intact and a total of 6 mL of preservative-free 0.25% Marcaine with 40 mg Depo-Medrol was injected in divided doses between those 4 levels. The needles were then removed intact. The patient experienced no signs or symptoms of intrathecal, intravascular injection. The patient experienced no paraesthesia. The procedure was completed without any apparent difficulty, any complication. The patient appeared to tolerate well. Sensory as well as motor exam was unchanged from prior to procedure. ASSESSMENT AND PLAN: This is a 51-year-old male with lumbosacral spondylosis, lumbosacral degenerative disc disease, lumbar facet arthropathy, status post right-sided radiofrequency ablation of the medial branch L4 through S1. The patient will continue his current medications. The patient will follow up in approximately 2 weeks for reevaluation. Complications None
== END 2022-01-24 08:53 | disposition home or self-care (01) ==
LOC: SDC 05:44 → AC 05:45
PROVIDERS: PCP Physician Assistant; Referring Provider Anesthesiology Pain Medicine; Visit Provider Anesthesiology Pain Medicine
PROC: (CPT 64635; principal; 2022-01-24 07:25)
DX: M47.816 Spondylosis without myelopathy or radiculopathy, lumbar region (principal); E11.9 Type 2 diabetes mellitus without complications; Z79.4 Long term (current) use of insulin; M47.817 Spondylosis without myelopathy or radiculopathy, lumbosacral region; M51.37 Other intervertebral disc degeneration, lumbosacral region; F32.A Depression, unspecified; F41.9 Anxiety disorder, unspecified; K21.9 Gastro-esophageal reflux disease without esophagitis; Z86.718 Personal history of other venous thrombosis and embolism; Z86.711 Personal history of pulmonary embolism; Z86.74 Personal history of sudden cardiac arrest; I10 Essential (primary) hypertension; F17.201 Nicotine dependence, unspecified, in remission
CPT/HCPCS: 64635; 72100; 76000; 82962; J7120; J2405

== ENCOUNTER 2022-03-28 07:23 | Day surgery (SDC) | payer MEDICARE, MEDICAID, SELFPAY ==
[2022-03-28] MEDS: Lactated Ringers 1,000 ML 15 ML IV (07:35)
--- NOTE | 2022-03-28 08:10 | RAD_ITS ---
PROCEDURE: Caudal block. DATE OF EXAMINATION: 03/28/2022 INDICATION: Male, 51 years old. Low back pain. FLUOROSCOPY TIME (if supplied): (6 seconds) minutes/seconds. One image was obtained. RAD/Fluor Guidance for Spine Inj IMPRESSION: Intraoperative imaging provided for caudal block. Electronically Signed: Eliazar Funes MD at 9:47 EDT ,
[2022-03-28 08:22] VITALS: BP 131/76; PULSE 90; RESP 19; TEMP 36.6; O2SAT 93; BMI 48.5
[2022-03-28] MEDS: Bupivacaine 0.25% 30 ML Vial OPERA.SITE (09:43)
[2022-03-28] MEDS: MethylPREDNISolone Acetate 80 MG/ML Vial (09:44)
[2022-03-28] MEDS: Lidocaine 1% (30 ml sdv) 30 ML Vial (09:44)
[2022-03-28] MEDS: 0.9% Normal Saline (Pres. free 10 ML Vial (09:44)
[2022-03-28 09:45] LABS: Bedside Glucose 100 mg/dL (74-106)
[2022-03-28 09:50] VITALS: BP 110/74; BP 131/76; PULSE 73; RESP 16; TEMP 36.4; O2SAT 95
[2022-03-28 09:55] VITALS: BP 114/68; BP 131/76; PULSE 71; RESP 18; O2SAT 92
[2022-03-28 10:00] VITALS: BP 109/66; BP 131/76; PULSE 74; RESP 18; O2SAT 95
[2022-03-28 10:05] VITALS: BP 111/70; BP 131/76; PULSE 73; RESP 16; TEMP 36; O2SAT 93
--- NOTE | 2022-03-28 10:15 | OP.PCM_ITS ---
Report of Operation Date of Procedure: 03/28/22 Pre-Operative Diagnosis: Lumbosacral radiculopathy, lumbosacral degenerative di sc disease, lumbosacral spinal stenosis Post-Operative Diagnosis: Lumbosacral radiculopathy, lumbosacral degenerative disc disease, lumbosacral spinal stenosis Surgery/Procedure Performed:: Caudal epidural steroid injection under fluoroscopic guidance Type of Anesthesia: MAC Estimated Blood Loss (mL): Minimal Description of Procedure: DESCRIPTION OF PROCEDURE: History and physical of today was reviewed. Risks and benefits of the procedure were explained. The patient understood and agreed to proceed. Informed consent was obtained. IV inserted per routine protocol. The patient was taken to the operating room and placed in the prone position with a pillow positioned underneath the abdomen. The lower back and tailbone area was prepped and draped in a sterile fashion using iodine x3. Under fluoroscopy guidance on a lateral view, the caudal space was identified. The skin and subcutaneous tissue was anesthetized with approximately 3 mL of 1% lidocaine using a 25-gauge regular needle. Under direct visualization with fluoroscopy, using a 22-gauge 3-1/2-inch spinal needle, the needle was advanced via the skin through the sacral hiatus. The tip of the needle was passed through the sacrococcygeal ligament and advanced to approximately S4 area. After negative aspiration of blood or CSF, a total of 3 mL of contrast was injected to confirm correct placement of the needle as well as cephalad spread. The spread was followed to approximately L5 area. After confirmation on AP as well as lateral view and repeated negative aspiration, a total of 15 mL of preservative-free 0.125% Marcaine with 80 mg of Depo-Medrol was injected easily. The needle was then removed intact. The patient experienced no sign or symptoms of intrathecal or intravascular injection. The patient experienced no paresthesia. The procedure was completed without any apparent difficulty or any complications. The patient appeared to tolerate it well. ASSESSMENT AND PLAN: This is a 51-year-old male with lumbosacral radiculopathy, lumbosacral degenerative disc disease, lumbosacral spinal stenosis status post caudal epidural steroid injection, patient will continue his current medications, patient will follow in approximately 2 weeks for reevaluation. Complications None
[2022-03-28 10:20] VITALS: BP 131/76
== END 2022-03-28 10:32 | disposition home or self-care (01) ==
LOC: SDC 07:23 → AC 07:24
PROVIDERS: PCP Physician Assistant; Referring Provider Anesthesiology Pain Medicine; Visit Provider Anesthesiology Pain Medicine
PROC: 3E0S3BZ Introduction of Anesthetic Agent into Epidural Space, Percutaneous Approach (ICD-10-PCS; CPT 62282; principal; 2022-03-28 09:05)
DX: M51.17 Intervertebral disc disorders with radiculopathy, lumbosacral region (principal); E66.01 Morbid (severe) obesity due to excess calories; Z68.42 Body mass index [BMI] 45.0-49.9, adult; E11.9 Type 2 diabetes mellitus without complications; Z79.4 Long term (current) use of insulin; I10 Essential (primary) hypertension; M48.07 Spinal stenosis, lumbosacral region; F17.210 Nicotine dependence, cigarettes, uncomplicated; Z79.85 Long-term (current) use of injectable non-insulin antidiabetic drugs; Z79.899 Other long term (current) drug therapy; Z86.74 Personal history of sudden cardiac arrest
CPT/HCPCS: 62323; 01992; 64483; 77003; 82962; J7120; J2405; J3490

== ENCOUNTER 2022-09-26 07:03 | Day surgery (SDC) | payer MEDICARE, MEDICAID, SELFPAY ==
[2022-09-26] VITALS (7 sets, daily range): BP systolic 103–156; BP diastolic 40–98; PULSE 86–96; RESP 16–18; TEMP 36.2–36.9; O2SAT 92–96; BMI 51.4
[2022-09-26] MEDS: Lactated Ringers 1,000 ML 15 ML IV (07:38)
[2022-09-26 08:01] LABS: Bedside Glucose 121 mg/dL (74-106)
--- NOTE | 2022-09-26 08:24 | SUR.PREOP ---
versed sent to surgery with jessica RN for anesthesia to give the rest to pt (1.5mg)
--- NOTE | 2022-09-26 08:30 | RAD_ITS ---
PROCEDURE: Left L4-S1 radiofrequency ablation. DATE OF EXAMINATION: September 26, 2022. INDICATION: Male, 51 years old. Chronic low back pain. FLUOROSCOPY TIME (if supplied): (24.4 seconds) minutes/seconds. 16 mGy. 10 fluoroscopic images were submitted. RAD/L/S Spine Min 4 Views IMPRESSION: Intraoperative imaging provided for left L4-S1 radiofrequency ablation. Electronically Signed: Eliazar Funes MD at 12:51 EDT ,
[2022-09-26] MEDS: Lidocaine 1% (30 ml sdv) 30 ML Vial (08:39)
[2022-09-26] MEDS: MethylPREDNISolone Acetate 40 MG/ML Vial IM (08:48)
--- NOTE | 2022-09-26 08:55 | PCM.OPRPT ---
Report of Operation Date of Procedure: 09/26/22 Pre-Operative Diagnosis: Lumbosacral spondylosis, lumbosacral degenerative disc disease, lumbar facet arthropathy Post-Operative Diagnosis: Lumbosacral spondylosis, lumbosacral degenerative disc disease, lumbar facet arthropathy Surgery/Procedure Performed:: Left-sided lumbar radiofrequency ablation of the medial branch L4, L5, S1 Type of Anesthesia: MAC Estimated Blood Loss (mL): Minimal Description of Procedure: History and physical today was reviewed. Risks and benefits of procedure explained. The patient understood, agreed to the procedure and informed consent was obtained. IV inserted per routine protocol. The patient was taken to the operating room, placed in the prone position with a pillow positioned underneath the abdomen. The left side of the lower back was prepped and draped in a sterile fashion using iodine x 3. Under fluoroscopy guidance, on an oblique view, the L3 through S1 vertebral bodies were visualized. The skin and subcutaneous tissue was anesthetized with approximately 10 mL of 1% lidocaine using a 25-gauge regular needle. Under direct visualization with fluoroscopy at approximately 25-degree angle, starting on the left L3, ending on the left S1 passing through the L4-L5 using a 20-gauge 15 cm with a 10 mm curved active tip radiofrequency ablation needle the needle passed through the skin. The tip of the needle was maneuvered and directed towards the superior and medial gutter of the transverse process at the vicinity of the medial branch. Once the tip of the needle was in contact with the bone, the needle pulled approximately 2 mm up the bone. The stylet of each needle was then removed. After negative aspiration of blood with CSF and confirmation of AP as well as oblique view, radiofrequency ablation probe was then inserted at each level. Impedance was then recorded at L3 to be 266, at L4 241, at L5 236, at S1 288 ohm. Motor-evoked potential was then initiated to 1.5 volt without any motor response at each corresponding level. The probe was then removed intact and a total of 6 mL preservative-free 1% lidocaine was injected in divided doses between those 4 levels after negative aspiration of blood with CSF. The radiofrequency ablation probe was then reinserted after confirmation of AP, oblique as well as lateral view. Radiofrequency ablation was then initiated to 80 degrees Celsius for 90 seconds at each level. Once concluded, the probe was then removed intact and a total of 6 mL of preservative-free 0.25% Marcaine with 40 mg Depo-Medrol was injected in divided doses between those 4 levels. The needles were then removed intact. The patient experienced no signs or symptoms of intrathecal, intravascular injection. The patient experienced no paraesthesia. The procedure was completed without any apparent difficulty, any complication. The patient appeared to tolerate well. Sensory as well as motor exam was unchanged from prior to procedure. ASSESSMENT AND PLAN: This is a 51-year-old male with lumbosacral spondylosis, lumbosacral degenerative disc disease, lumbar facet arthropathy, status post left-sided lumbar radiofrequency ablation of the medial branch L4 through S1. The patient will continue his current medications. The patient will follow up in approximately 2 weeks for reevaluation. Complications None
== END 2022-09-26 09:50 | disposition home or self-care (01) ==
LOC: SDC 07:04 → AC 07:07
PROVIDERS: PCP Physician Assistant; Referring Provider Anesthesiology Pain Medicine; Visit Provider Anesthesiology Pain Medicine
PROC: (CPT 64635; principal; 2022-09-26 07:25)
DX: M47.817 Spondylosis without myelopathy or radiculopathy, lumbosacral region (principal); M46.96 Unspecified inflammatory spondylopathy, lumbar region; I27.20 Pulmonary hypertension, unspecified; E66.01 Morbid (severe) obesity due to excess calories; Z68.43 Body mass index [BMI] 50.0-59.9, adult; E11.9 Type 2 diabetes mellitus without complications; Z79.4 Long term (current) use of insulin; M51.17 Intervertebral disc disorders with radiculopathy, lumbosacral region; G47.33 Obstructive sleep apnea (adult) (pediatric); I10 Essential (primary) hypertension; J45.909 Unspecified asthma, uncomplicated; K76.0 Fatty (change of) liver, not elsewhere classified; F17.210 Nicotine dependence, cigarettes, uncomplicated; F41.9 Anxiety disorder, unspecified; F32.9 Major depressive disorder, single episode, unspecified; J98.4 Other disorders of lung; K21.9 Gastro-esophageal reflux disease without esophagitis; M79.2 Neuralgia and neuritis, unspecified; Z79.891 Long term (current) use of opiate analgesic; Z79.01 Long term (current) use of anticoagulants; Z79.899 Other long term (current) drug therapy; Z86.711 Personal history of pulmonary embolism; Z86.718 Personal history of other venous thrombosis and embolism
CPT/HCPCS: 64635; 64636; 01992; 72110; 76000; 82962; J7120

== ENCOUNTER → 2022-10-27 | Outpatient (CLI) | payer MEDICARE, MEDICAID, SELFPAY ==
--- NOTE | 2022-10-27 12:42 | CT_ITS ---
STUDY: LOW DOSE CT LUNG CANCER SCREENING REASON FOR EXAM: Male, 51 years old. h/o tobacco dependency RADIATION DOSAGE (If Supplied By Facility): CTDIvol = ( 4.02 ) mGy, DLP = ( 141.45 ) mGycm TECHNIQUE: No contrast was administered. Low dose technique was utilized (average mAS-38 and kVp 120). 1.25 mm axial source images with a slice interval of 1.25-mm were reconstructed in lung windows. 1.25mm sagittal and coronal reformatted images . COMPARISON: October 25, 2021 August 30, 2019 NODULES: Nodule #: 1 Density: Solid Lung location: Lingular lobe: Along pleura Location in series: Series Number: 2 Image: 137 Size - D1 x D2 mm: 7 x 8 mm: 7.5 average diameter Margin: Circumscribed Shape: Round Calcification: Noncalcified Fat: None Temporal comparison: Unchanged from August 30, 2019 Total lung nodules (excluding granulomas): 1 Emphysema: Linear atelectasis in the middle lobe. Endobronchial lesion: Mild diffuse peribronchial thickening. No endobronchial lesion. Aorta: Not seen CORONARY ARTERIES: Mild coronary atherosclerosis Heart: No cardiomegaly Pulmonary artery: No main pulmonary arterial enlargement Mediastinal nodes: No mediastinal or hilar adenopathy Other chest and abdominal findings: None CT/Low Dose CT Lung Screening IMPRESSION: Lung-RADS category 2 - Continue annual screening with LDCT in 12 months. Mild peribronchial thickening as can be seen with bronchitis/bronchiolitis. Subsegmental linear atelectasis in the lingula. IMPORTANT NOTES FOR USE: ACR Lung-RADS Version 1.1 Assessment Categories Release Date: 2018 Category: Coded 0-4 bases on nodule(s) with highest degree of suspicion. Negative screen is defined as categories 1 and 2; a positive screen is defined as categories 3 and 4. Category 3 and 4A nodules that are unchanged on interval CT should be coded as category 2, and individuals returned to screening in 12 months. Category 4X: Category 3 or 4 nodules with additional imaging findings that increase the suspicion of lung cancer, such as spiculation, GGN that doubles in size in 1 year, enlarged lymph notes, etc. Category Modifiers: S (significant finding unrelated to lung cancer) Electronically Signed: Hamlet Woodard MD at 5:30 EDT ,
== END | disposition home or self-care (01) ==
LOC: CT 12:42
PROVIDERS: PCP Physician Assistant; Referring Provider Internal Medicine Critical Care Medicine; Visit Provider Internal Medicine Critical Care Medicine
DX: Z12.2 Encounter for screening for malignant neoplasm of respiratory organs (principal); F17.210 Nicotine dependence, cigarettes, uncomplicated
CPT/HCPCS: 71271

== ENCOUNTER 2022-11-14 09:27 | Day surgery (SDC) | payer MEDICARE, MEDICAID, SELFPAY ==
[2022-11-14] VITALS (8 sets, daily range): BP systolic 100–128; BP diastolic 74–91; PULSE 81–92; RESP 16–20; TEMP 36.2–36.7; O2SAT 93–98; BMI 53.1
[2022-11-14] MEDS: Lactated Ringers 1,000 ML 15 ML IV (10:18)
[2022-11-14 10:39] LABS: Bedside Glucose 116 mg/dL (74-106)
--- NOTE | 2022-11-14 10:40 | RAD_ITS ---
PROCEDURE: Right L4-S1 radiofrequency ablation. DATE OF EXAMINATION: November 14, 2022 INDICATION: Male, 52 years old. Chronic low back pain to FLUOROSCOPY TIME (if supplied): (19 seconds) minutes/seconds. 8 images. 11.46 mGy RAD/Lumbar Spine 2 or 3 Views IMPRESSION: Intraoperative imaging provided for right L4-S1 radiofrequency ablation. Electronically Signed: Eliazar Funes MD at 15:32 EDT ,
[2022-11-14] MEDS: MethylPREDNISolone Acetate 40 MG/ML Vial IM (10:49)
[2022-11-14] MEDS: Lidocaine 1% (30 ml sdv) 30 ML Vial (10:50)
--- NOTE | 2022-11-14 10:59 | PCM.OPRPT ---
Report of Operation Date of Procedure: 11/14/22 Pre-Operative Diagnosis: Lumbosacral spondylosis, lumbosacral degenerative disc disease, lumbar facet arthropathy Post-Operative Diagnosis: Lumbosacral spondylosis, lumbosacral degenerative disc disease, lumbar facet arthropathy Surgery/Procedure Performed:: Right-sided lumbar radiofrequency ablation of the medial branch L4, L5, S1 Type of Anesthesia: MAC Estimated Blood Loss (mL): Minimal Description of Procedure: History and physical today was reviewed. Risks and benefits of procedure explained. The patient understood, agreed to the procedure and informed consent was obtained. IV inserted per routine protocol. The patient was taken to the operating room, placed in the prone position with a pillow positioned underneath the abdomen. The right side of the lower back was prepped and draped in a sterile fashion using iodine x 3. Under fluoroscopy guidance, on an oblique view, the L3 through S1 vertebral bodies were visualized. The skin and subcutaneous tissue was anesthetized with approximately 10 mL of 1% lidocaine using a 25-gauge regular needle. Under direct visualization with fluoroscopy at approximately 25-degree angle, starting on the right L3, ending on the right S1 passing through the L4-L5 using a 20-gauge 15 cm with a 10 mm curved active tip radiofrequency ablation needle the needle passed through the skin. The tip of the needle was maneuvered and directed towards the superior and medial gutter of the transverse process at the vicinity of the medial branch. Once the tip of the needle was in contact with the bone, the needle pulled approximately 2 mm up the bone. The stylet of each needle was then removed. After negative aspiration of blood with CSF and confirmation of AP as well as oblique view, radiofrequency ablation probe was then inserted at each level. Impedance was then recorded at L3 to be 274, at L4 276, at L5 215, at S1 241 ohm. Motor-evoked potential was then initiated to 1.5 volt without any motor response at each corresponding level. The probe was then removed intact and a total of 6 mL preservative-free 1% lidocaine was injected in divided doses between those 4 levels after negative aspiration of blood with CSF. The radiofrequency ablation probe was then reinserted after confirmation of AP, oblique as well as lateral view. Radiofrequency ablation was then initiated to 80 degrees Celsius for 90 seconds at each level. Once concluded, the probe was then removed intact and a total of 6 mL of preservative-free 0.25% Marcaine with 40 mg Depo-Medrol was injected in divided doses between those 4 levels. The needles were then removed intact. The patient experienced no signs or symptoms of intrathecal, intravascular injection. The patient experienced no paraesthesia. The procedure was completed without any apparent difficulty, any complication. The patient appeared to tolerate well. Sensory as well as motor exam was unchanged from prior to procedure. ASSESSMENT AND PLAN: This is a 52-year-old male with lumbosacral spondylosis, lumbosacral degenerative disc disease, lumbar facet arthropathy, status post right-sided radiofrequency ablation of the medial branch L4 through S1. The patient will continue his current medications. The patient will follow up in approximately 2 weeks for reevaluation. Complications None
== END 2022-11-14 11:53 | disposition home or self-care (01) ==
PROVIDERS: PCP Physician Assistant; Referring Provider Anesthesiology Pain Medicine; Visit Provider Anesthesiology Pain Medicine
PROC: (CPT 64635; principal; 2022-11-14 11:55)
DX: M47.817 Spondylosis without myelopathy or radiculopathy, lumbosacral region (principal); M46.96 Unspecified inflammatory spondylopathy, lumbar region; I27.20 Pulmonary hypertension, unspecified; E66.01 Morbid (severe) obesity due to excess calories; Z68.43 Body mass index [BMI] 50.0-59.9, adult; E11.9 Type 2 diabetes mellitus without complications; Z79.4 Long term (current) use of insulin; I10 Essential (primary) hypertension; M51.37 Other intervertebral disc degeneration, lumbosacral region; M25.511 Pain in right shoulder; M25.512 Pain in left shoulder; F17.210 Nicotine dependence, cigarettes, uncomplicated; Z79.85 Long-term (current) use of injectable non-insulin antidiabetic drugs; Z79.899 Other long term (current) drug therapy; Z86.74 Personal history of sudden cardiac arrest
CPT/HCPCS: 64635; 64636; 01992; 72100; 73030; 76000; 82962; J7120

== ENCOUNTER → 2022-11-14 | Outpatient (CLI) | payer MEDICARE, MEDICAID, SELFPAY ==
--- NOTE | 2022-11-14 09:45 | RAD_ITS ---
STUDY: X-RAY - RIGHT SHOULDER REASON FOR EXAM: Male, 52 years old. SHOULDER PAIN TECHNIQUE: 4 view(s) of the shoulder. COMPARISON: None. FINDINGS: Normal glenohumeral articulation. Normal acromioclavicular joint. Normal acromion. Normal humeral head and visualized proximal humerus. The soft tissue structures are unremarkable. Normal visualized pulmonary apex. RAD/Shoulder min 2 Views IMPRESSION: Normal x-ray examination of the shoulder. Electronically Signed: Juaquin Bland MD at 12:56 EDT ,
== END | disposition home or self-care (01) ==
LOC: RAD 09:26
PROVIDERS: PCP Physician Assistant; Referring Provider Physician Assistant; Visit Provider Physician Assistant
DX: M25.511 Pain in right shoulder (principal); M25.512 Pain in left shoulder
CPT/HCPCS: 73030

== ENCOUNTER → 2022-12-12 | Outpatient (CLI) | payer MEDICARE, MEDICAID, SELFPAY ==
--- NOTE | 2022-12-12 07:45 | MRI_ITS ---
STUDY: MRI RIGHT SHOULDER REASON FOR EXAM: Male, 52 years old. Right shoulder pain for years. TECHNIQUE: Standardized fat and water weighted pulse sequences were obtained in all 3 orthogonal planes. COMPARISON: None. FINDINGS: Supraspinatus and infraspinatus tendinosis without a partial or full-thickness tear (coronal series 5 images 8-15). Subscapularis tendinosis with articular surface fraying without a partial or full thickness tear (axial series 2 and 3 images 9-14). Normal teres minor tendon. Normal supraspinatus muscle. Normal infraspinatus muscle. Normal subscapularis muscle. Normal teres minor muscle. Mild thinning of the articular cartilage of the glenohumeral joint with a small glenohumeral joint effusion (axial series 3 images 8-15). Normal humeral head and visualized proximal humerus. Normal biceps labral complex. Slight thickening of the intra-articular portion of the long head of the biceps compatible with mild tendinosis (axial series 3 images 8-12). Nondisplaced superior labral tear (coronal series 5 image 13). Normal capsulo- ligamentous complex. Normal rotator interval. AC joint effusion. AC joint hypertrophy with narrowing of the subacromial space (coronal series 4 and 5 images 16-22, sagittal series 6 image 6). There is a Type II morphology (curved), with a neutral orientation. There is no subacromial-subdeltoid bursal fluid. Normal visualized coracohumeral and coracoacromial ligaments. Normal quadrilateral space. Normal axillary space. Normal deltoid muscle. Normal trapezius muscle. MRI/Upper Ext Joint Only(Routine) IMPRESSION: Supraspinatus, infraspinatus and subscapularis tendinosis without a partial or full-thickness tear. Mild arthrosis of the glenohumeral joint. Intra-articular long head of biceps tendinosis. Nondisplaced superior labral tear. AC joint effusion with AC joint hypertrophy resulting in narrowing of the subacromial space. Small glenohumeral joint effusion. Electronically Signed: Eleno Lyon MD at 10:25 EDT ,
== END | disposition home or self-care (01) ==
LOC: MRI 06:22
PROVIDERS: PCP Physician Assistant; Referring Provider Physician Assistant; Visit Provider Physician Assistant
DX: M25.511 Pain in right shoulder (principal)
CPT/HCPCS: 73221

== ENCOUNTER 2023-02-27 09:46 | Day surgery (SDC) | payer MEDICARE, MEDICAID, SELFPAY ==
[2023-02-27] MEDS: Lactated Ringers 1,000 ML 15 ML IV ×2 (10:14→10:15)
[2023-02-27 10:15] VITALS: BP 144/95; PULSE 81; RESP 16; TEMP 37; O2SAT 100; BMI 53.7
[2023-02-27 10:39] LABS: Bedside Glucose 110 mg/dL (74-106)
--- NOTE | 2023-02-27 11:50 | RAD_ITS ---
PROCEDURE: Caudal block. DATE OF EXAMINATION: February 27, 2023. INDICATION: Male, 52 years old. Chronic low back pain. FLUOROSCOPY TIME (if supplied): (8.5 seconds) minutes/seconds. 7.28 mGy. One image was submitted. Intraoperative imaging provided for caudal block. RAD/Fluor Guidance for Spine Inj IMPRESSION: Intraoperative imaging provided for caudal block. Electronically Signed: Eliazar Funes MD at 15:43 EDT ,
[2023-02-27 12:15] VITALS: BP 118/91; BP 141/104; BP 144/95; PULSE 88; PULSE 90; RESP 18; TEMP 37; O2SAT 95; O2SAT 97
[2023-02-27 12:20] VITALS: BP 143/109; BP 144/95; PULSE 81; RESP 18; O2SAT 96
--- NOTE | 2023-02-27 12:22 | OP.PCM_ITS ---
Report of Operation Date of Procedure: 02/27/23 Pre-Operative Diagnosis: Lumbosacral radiculopathy, lumbosacral degenerative di sc disease, lumbosacral spinal stenosis Post-Operative Diagnosis: Lumbosacral radiculopathy, lumbosacral degenerative disc disease, lumbosacral spinal stenosis Surgery/Procedure Performed:: Diagnostic/therapeutic caudal epidural steroid injection under fluoroscopic guidance Type of Anesthesia: MAC Estimated Blood Loss (mL): Minimal Description of Procedure: DESCRIPTION OF PROCEDURE: History and physical of today was reviewed. Risks and benefits of the procedure were explained. The patient understood and agreed to proceed. Informed consent was obtained. IV inserted per routine protocol. The patient was taken to the operating room and placed in the prone position with a pillow positioned underneath the abdomen. The lower back and tailbone area was prepped and draped in a sterile fashion using iodine x3. Under fluoroscopy guidance on a lateral view, the caudal space was identified. The skin and subcutaneous tissue was anesthetized with approximately 3 mL of 1% lidocaine using a 25-gauge regular needle. Under direct visualization with fluoroscopy, using a 22-gauge 3-1/2-inch spinal needle, the needle was advanced via the skin through the sacral hiatus. The tip of the needle was passed through the sacrococcygeal ligament and advanced to approximately S4 area. After negative aspiration of blood or CSF, a total of 3 mL of contrast was injected to confirm correct placement of the needle as well as cephalad spread. The spread was followed to approximately L5 area. After confirmation on AP as well as lateral view and repeated negative aspiration, a total of 15 mL of preservative-free 0.125% Marcaine with 80 mg of Depo-Medrol was injected easily. The needle was then removed intact. The patient experienced no sign or symptoms of intrathecal or intravascular injection. The patient experienced no paresthesia. The procedure was completed without any apparent difficulty or any complications. The patient appeared to tolerate it well. ASSESSMENT AND PLAN: This is a 52-year-old male with lumbosacral radiculopathy, lumbosacral degenerative disc disease, lumbosacral spinal stenosis status post diagnostic/therapeutic caudal epidural steroid injection, patient will continue his current medications, patient will follow up in approximately 2 weeks for reevaluation. Complications None
[2023-02-27 12:25] VITALS: BP 143/96; BP 144/95; PULSE 82; RESP 18; O2SAT 96
[2023-02-27 12:53] VITALS: BP 105/90; BP 144/95; PULSE 79; RESP 20; TEMP 37; O2SAT 94
[2023-02-27 13:13] VITALS: BP 144/95
== END 2023-02-27 13:14 | disposition home or self-care (01) ==
LOC: SDC 09:47 → AC 09:48
PROVIDERS: PCP Physician Assistant; Referring Provider Anesthesiology Pain Medicine; Visit Provider Anesthesiology Pain Medicine
PROC: 3E0S3BZ Introduction of Anesthetic Agent into Epidural Space, Percutaneous Approach (ICD-10-PCS; CPT 62282; principal; 2023-02-27 11:35)
DX: M51.17 Intervertebral disc disorders with radiculopathy, lumbosacral region (principal); Z79.4 Long term (current) use of insulin; E11.9 Type 2 diabetes mellitus without complications; M48.07 Spinal stenosis, lumbosacral region; F17.210 Nicotine dependence, cigarettes, uncomplicated; M51.36 Other intervertebral disc degeneration, lumbar region; M47.816 Spondylosis without myelopathy or radiculopathy, lumbar region; F41.9 Anxiety disorder, unspecified; I10 Essential (primary) hypertension; G47.33 Obstructive sleep apnea (adult) (pediatric); K76.0 Fatty (change of) liver, not elsewhere classified; Z79.899 Other long term (current) drug therapy; Z86.718 Personal history of other venous thrombosis and embolism; Z86.711 Personal history of pulmonary embolism
CPT/HCPCS: 62323; 01992; 64483; 77003; 82962; J7120; J3490

== ENCOUNTER 2023-10-30 12:39 | Emergency (ER) | payer MEDICARE, MEDICAID, SELFPAY ==
[2023-10-30 12:40] VITALS: BP 151/94; PULSE 92; RESP 22; TEMP 36.1; O2SAT 93
[2023-10-30 13:40] VITALS: BP 134/90; PULSE 87; RESP 16; O2SAT 93
--- NOTE | 2023-10-30 13:40 | EX.ED.DYSGE1 ---
HPI <FRANNIE Acosta - Last Filed: 10/30/23 15:22> History of Present Illness Chief Complaint: Hyperglycemia Narrative Narrative: Patient presenting today due to hyperglycemia. He reports a history of type 2 diabetes mellitus. He checked his glucose today and it was 594. He then called his PCP who advised him to come into the emergency department for evaluation. He is currently taking Ozempic to manage his diabetes. He was previously on Trulicity but had been out of it for about 3 weeks prior to her starting Ozempic last Monday. He does not have any other acute complaints. He denies fevers, chills, abdominal pain, nausea, and vomiting. He reports polyuria and polydipsia today. [facility] <FRANNIE Acosta - Last Filed: 10/30/23 15:22> [facility] Medical History (Updated 10/30/23 @ 15:05 by FRANNIE Acosta) Obesity Colitis Ventral hernia NAFL (nonalcoholic fatty liver) Long-term insulin use Osteoarthritis Asthma Anxiety Bladder cancer History of acute respiratory failure (01/29/16) Hx of cardiac arrest (01/29/16) Depression Insomnia Pulmonary hypertension Tricuspid regurgitation Left ventricular hypertrophy History of pulmonary embolus (PE) History of DVT (deep vein thrombosis) Obstructive sleep apnea Morbid obesity GERD (gastroesophageal reflux disease) Hypertension Diabetes mellitus, type II, insulin dependent Dyspnea on exertion Chest pain Abnormal stress test Premature ventricular contraction Palpitations Dyspnea Tobacco dependence in remission Restrictive lung disease Lumbosacral radiculopathy Degeneration of lumbosacral intervertebral disc Lumbosacral spondylosis Tear of medial meniscus of left knee DVT (deep venous thrombosis) Pulmonary embolism VTE (venous thromboembolism) Home Medications ?Medication ?Instructions ?Recorded ?Last Taken ?Type omeprazole 20 mg capsule,delayed 20 mg PO BID Gerd #120 caps 08/09/17 02/27/23 Rx release gabapentin 600 mg tablet 600 mg PO TIDCM neuropathy 08/23/17 02/26/23 History atenolol 50 mg tablet 50 mg PO BID blood pressure/heart 09/07/17 02/27/23 History oxycodone-acetaminophen 5 mg-325 1 tab PO BID PRN Pain 01/26/18 02/26/23 History mg tablet losartan 50 mg tablet 50 mg PO DAILY #90 tabs 09/21/20 02/27/23 Rx rivaroxaban 20 mg tablet 20 mg PO DAILY 10/05/20 02/24/23 History fluoxetine 20 mg tablet 20 mg PO DAILY 03/01/21 02/26/23 History blood sugar diagnostic (True #360 ea 04/06/21 Unknown Rx Metrix Glucose Test Strip) tamsulosin 0.4 mg capsule (Flomax) 0.4 mg PO QHS 11/29/21 02/26/23 History cyclobenzaprine 10 mg tablet 10 mg PO BID 09/26/22 02/26/23 History albuterol sulfate 90 mcg/actuation 2 puff inhalation Q4H PRN 03/21/23 Unknown Rx aerosol inhaler shortness of breath or wheezing #1 ea fluoxetine 10 mg capsule 10 mg PO DAILY 10/30/23 Unknown History furosemide 40 mg tablet 40 mg PO DAILY 10/30/23 Unknown History oxybutynin chloride 5 mg 5 mg PO DAILY PRN bladder muscle 10/30/23 Unknown History tablet,extended release 24 hr dysfunction phenazopyridine 200 mg tablet 200 mg PO TID PRN PRN pain 10/30/23 Unknown History semaglutide 0.25 mg or 0.5 mg (2 0.25 mg subcut QWEEK 10/30/23 Unknown History mg/3 mL) subcutaneous pen injector (Ozempic) Allergy/AdvReac Type Severity Reaction Status Date / Time quinine Allergy Hives Verified 10/30/23 12:40 morphine AdvReac vein Verified 10/30/23 12:40 irritation Family History Father Sudden cardiac Surgical History History of left heart catheterization (06/27/14) lt foot reconstruction History of hip replacement History of knee surgery History of appendectomy Social History Smoking Status: Current every day smoker tobacco type: cigarettes Tobacco: How many years used: 35 how long ago did patient quit smokin, 1.5ppd second hand exposure: Yes quit status: quit date established alcohol intake: current alcohol intake frequency: a few times a month Alcohol type: beer substance use type: does not use caffeine: Yes Type: coffee Number of servings: 2 ROS <FRANNIE Acosta - Last Filed: 10/30/23 15:22> ROS ED Constitutional Constitutional ED: Denies chills or fever(s) Cardiovascular Cardiovascular: Denies chest pain Respiratory/Chest Respiratory/Chest: Denies dyspnea Gastrointestinal Gastrointestinal: Denies abdominal pain, nausea or vomiting Genitourinary Genitourinary ED: Denies dysuria, hematuria or urinary urgency Musculoskeletal Musculoskeletal: Denies arthralgias or back pain Neurologic Neurologic: Denies weakness EXAM <FRANNIE Acosta - Last Filed: 10/30/23 15:22> Physical Exam Const Vital Signs: 10/30/23 12:40 10/30/23 13:03 10/30/23 13:40 Temperature 96.9 F L Temperature Source Temporal Pulse Rate 92 87 Respiratory Rate 22 H 16 Respiratory Effort Normal Respiratory Pattern Normal Blood Pressure 151/94 H 134/90 H Blood Pressure Mean 113 104 Pulse Ox 93 93 Oxygen Delivery Method Room Air 10/30/23 14:00 10/30/23 15:00 Temperature Temperature Source Pulse Rate 80 83 Respiratory Rate 18 16 Respiratory Effort Respiratory Pattern Blood Pressure 117/75 126/67 H Blood Pressure Mean 89 86 Pulse Ox 93 91 Oxygen Delivery Method Room Air Room Air Positive well nourished, well developed and no apparent distress General Appearance ED: well developed HEENT Reports normocephalic and head/scalp atraumatic Mouth ED: Yes moist mucous membranes normal Eyes PERRL and EOMs intact bilaterally Neck full ROM and supple Chest Wall inspection of chest normal Resp normal respiratory effort and clear to auscultation bilaterally Cardio regular rate and regular rhythm GI soft to palpation, non-tender, non-distended and no masses Back/Spine normal ROM and normal to inspection Extremity normal to inspection and full ROM Neuro oriented x3, CN's II-XII intact bilaterally, moves all extremities, no focal motor deficits and no sensory deficits noted Sensorium / Orientation: awake and alert Psych mental status grossly normal and thought process normal Skin no rashes or lesions noted and no wounds <Dr. Jt Foy DO - Last Filed: 10/30/23 15:09> Physical Exam Const Vital Signs: 10/30/23 12:40 10/30/23 13:03 10/30/23 13:40 Temperature 96.9 F L Temperature Source Temporal Pulse Rate 92 87 Respiratory Rate 22 H 16 Respiratory Effort Normal Respiratory Pattern Normal Blood Pressure 151/94 H 134/90 H Blood Pressure Mean 113 104 Pulse Ox 93 93 Oxygen Delivery Method Room Air 10/30/23 14:00 10/30/23 15:00 Temperature Temperature Source Pulse Rate 80 83 Respiratory Rate 18 16 Respiratory Effort Respiratory Pattern Blood Pressure 117/75 126/67 H Blood Pressure Mean 89 86 Pulse Ox 93 91 Oxygen Delivery Method Room Air Room Air [facility] <FRANNIE Acosta - Last Filed: 10/30/23 15:22> [facility] Narrative Medical decision making narrative: Patient presenting due to hyperglycemia. He has had a difficult time controlling his sugars over the past few weeks after being out of his Trulicity. He started Ozempic on Monday and that is the only medication he is on to control his diabetes. He is well-appearing and in no acute distress. Labs will be obtained to rule out DKA. He will be given IV fluids. His glucose is 347, he is not in DKA, he was given 10 units of Humalog. He was on insulin in the past but was taken off of this. I did encourage him to call his PCP after being discharged to see if they would want to put him back on this given he has had issues getting his glucose under control over the past few weeks. Patient will be discharged home in stable condition and is comfortable with plan. Lab Data Attestation: I reviewed the patient's lab results. Lab results narrative: Sodium 130 Labs: Laboratory Results - last 24 hr 10/30/23 10/30/23 13:00 14:48 WBC 9.0 RBC 4.82 Hgb 15.1 Hct 43.5 MCV 90.2 MCH 31.3 MCHC 34.7 RDW Std Deviation 43.1 RDW Coeff of Laney 13.3 Plt Count 146 L MPV 11.4 Immature Gran % (Auto) 0.400 Neut % (Auto) 53.1 Lymph % (Auto) 32.2 Drew % (Auto) 8.6 Eos % (Auto) 5.0 Baso % (Auto) 0.7 Absolute Neuts (auto) 4.8 Absolute Lymphs (auto) 2.89 Nucleated RBC % 0 Sodium 130 L Potassium 4.3 Chloride 99 Carbon Dioxide 26.0 Anion Gap 5 BUN 10 Creatinine 1.16 Est GFR (MDRD) Af Amer 84 Est GFR (MDRD) Non-Af 70 BUN/Creatinine Ratio 8.6 L Glucose 347 H Calcium 8.9 Acetone Level NEGATIVE POC Glucose 320 H <Dr. Jt Foy, DO - Last Filed: 10/30/23 15:09> [facility] Lab Data Labs: Laboratory Results - last 24 hr 10/30/23 10/30/23 13:00 14:48 WBC 9.0 RBC 4.82 Hgb 15.1 Hct 43.5 MCV 90.2 MCH 31.3 MCHC 34.7 RDW Std Deviation 43.1 RDW Coeff of Laney 13.3 Plt Count 146 L MPV 11.4 Immature Gran % (Auto) 0.400 Neut % (Auto) 53.1 Lymph % (Auto) 32.2 Drew % (Auto) 8.6 Eos % (Auto) 5.0 Baso % (Auto) 0.7 Absolute Neuts (auto) 4.8 Absolute Lymphs (auto) 2.89 Nucleated RBC % 0 Sodium 130 L Potassium 4.3 Chloride 99 Carbon Dioxide 26.0 Anion Gap 5 BUN 10 Creatinine 1.16 Est GFR (MDRD) Af Amer 84 Est GFR (MDRD) Non-Af 70 BUN/Creatinine Ratio 8.6 L Glucose 347 H Calcium 8.9 Acetone Level NEGATIVE POC Glucose 320 H Treatment and Re-Evaluation :: I have personally performed a face to face assessment of the patient and have reviewed the FABRICE Note. I performed a substantive portion of the visit including all aspects of the following. My [place] findings include: History: Patient presents with elevated blood sugar that was noticed today. Patient states his blood sugar was 593 at home today. Patient admits to some increased thirst. Patient admits to some increased fatigue. Patient denies any fevers or chills. Patient denies any nausea or vomiting. Patient states he had been on Ozempic in the past. Patient states he was recently changed to Trulicity. Patient denies any headaches. Exam: Vital signs are stable. Patient is afebrile. Patient is in no acute distress. Oral mucosa is pink and moist. Neck is supple. Trachea is midline. There is no JVD. Heart was regular rate and rhythm. Lungs are clear and equal bilaterally. Abdomen is soft. Bowel sounds are normal. There is no tenderness. There is no guarding noted. There is no rebound noted. Cranial nerves II through XII are intact. There are no focal motor or sensory deficits noted. Medical Decision Making: Differential diagnosis includes DKA, hyperglycemia, hyperosmolar hyperglycemic state, and electrolyte abnormality. CBC will be obtained to assess for leukocytosis and anemia. Basic metabolic profile will be obtained to assess for electrolyte abnormality and renal function. Serum acetone will be obtained to assess for DKA. Patient was given IV fluids. CBC was reviewed. Platelets were slightly low at 146. The remainder was within normal limits. Basic metabolic profile was reviewed. Glucose was elevated at 347. Sodium was slightly low at 130. Anion gap was normal. Serum acetone was reviewed and was negative. Patient was given a dose of Humalog here. Patient was instructed to follow-up with his primary care physician in 5 to 7 days. Patient was instructed to return if worse in any way. Patient understood and was agreeable with the plan. All questions were answered. Discharge Plan Triage Chief Complaint: Hyperglycemia ED Midlevel Provider: Shefali Parker ED Provider: Jt Foy Dx/Rx/DC Orders Clinical Impression: Hyperglycemia, Diabetes mellitus Instructions: ED Diabetic Hyperglycemia Prescriptions: No Action rivaroxaban 20 mg tablet 20 mg PO DAILY albuterol sulfate 90 mcg/actuation HFA aerosol inhaler 2 puff INHALATION Q4H PRN (Reason: shortness of breath or wheezing) Qty: 1 3RF Rx Instructions: administer with spacer omeprazole 20 MG capsule 20 mg PO BID Qty: 120 0RF gabapentin 600 MG tablet 600 mg PO TIDCM atenolol 50 MG tablet 50 mg PO BID oxycodone-acetaminophen 1 TABLET tablet 1 tab PO BID PRN (Reason: Pain) fluoxetine 20 mg Tablet 20 mg PO DAILY tamsulosin [Flomax] 0.4 mg Capsule 0.4 mg PO QHS cyclobenzaprine 10 mg Tablet 10 mg PO BID fluoxetine 10 mg capsule 10 mg PO DAILY furosemide 40 mg tablet 40 mg PO DAILY phenazopyridine 200 mg tablet 200 mg PO TID PRN PRN (Reason: pain) Patient Comments: I use it after surgery Ozempic 0.25 mg or 0.5 mg (2 mg/3 mL) pen injector 0.25 mg subcut QWEEK oxybutynin chloride 5 mg tablet extended release 24hr 5 mg PO DAILY PRN (Reason: bladder muscle dysfunction) Patient Comments: not using d/t trouble peeing losartan 50 mg tablet 50 mg PO DAILY Qty: 90 3RF (DME) True Metrix Glucose Test Strip Strip See Rx Instructions .ROUTE .MEDSUPPLY Qty: 360 6RF Rx Instructions: 4x/day Primary Care Provider: Edin Mendoza Referrals: Edin Mendoza PA [Primary Care Provider] - Activity Restrictions/Additional Instructions: Follow-up with your PCP. Return for any worsening of your symptoms. Print Language: Armenian Disposition Disposition: Home, Self Care
[2023-10-30 13:49] LABS: Absolute Lymphocyte Count 2.89 X10^3/uL (0.83-4.51); Absolute Neutrophil Count 4.8 X10^3/uL (2.0-7.7); Basophil# 0.06 X10^3/uL; Basophil% 0.7 % (0-1); Eosinophil# 0.45 X10^3/uL; Hematocrit 43.5 % (40-54); Hemoglobin 15.1 g/dL (13.0-16.5); Lymphocyte # 2.89 X10^3/ul (0.83-4.51); Lymphocyte % 32.2 % (19-41); Mean Corp Hgb Conc 34.7 g/dL (32-36); Mean Corpuscular Hgb 31.3 pg (27.0-32.0); Mean Corpuscular Volume 90.2 fL (80-94); Mean Platelet Vol. 11.4 fl (6.2-12.0); Monocyte# 0.77 X10^3/uL; Monocyte% 8.6 % (0-10); NRBC Flagged by Analyzer 0 % (0-5); Neutrophil # 4.77 X10^3/uL (2.7-7.7); Neutrophil % 53.1 % (47-70); Platelet Count 146 K/mm3 (150-450); RBC Distribution Width CV 13.3 % (11.6-14.6); RBC Distribution Width SD 43.1 fl (35.1-43.9); Red Blood Count 4.82 M/mm3 (4.6-6.2)
[2023-10-30] MEDS: 0.9% Normal Saline (1000mL) 1,000 ML 999 ML IV (13:51)
[2023-10-30 14:00] VITALS: BP 117/75; PULSE 80; RESP 18; O2SAT 93
[2023-10-30 14:12] LABS: Anion Gap 5 (5-15); BUN 10 mg/dL (7-18); BUN/Creat Ratio 8.6 RATIO (10-20); Calcium,Total 8.9 mg/dL (8.5-10.1); Chloride 99 mmol/L (98-107); Creatinine, Serum 1.16 mg/dL (0.70-1.30); EST Glomerular Filtration Rate 70 mL/min (>60); Est Glom Filt Rate - Afr Amer 84 mL/min (>60); Glucose 347 mg/dL (74-106); Potassium 4.3 mmol/L (3.5-5.1); Sodium Level 130 mmol/L (136-145)
[2023-10-30] MEDS: Insulin Lispro 100 UNIT/ML INSULN.PEN 10 UNIT SC (14:54)
[2023-10-30 15:00] VITALS: BP 126/67; PULSE 83; RESP 16; O2SAT 91
[2023-10-30 15:06] LABS: Bedside Glucose 320 mg/dL (74-106)
[2023-10-30 15:40] VITALS: BP 120/83; PULSE 82; RESP 18; TEMP 36.8; O2SAT 92
[2023-10-30 15:58] LABS: Bedside Glucose 300 mg/dL (74-106)
== END 2023-10-30 15:58 | disposition home or self-care (01) ==
PROVIDERS: Physician Assistant; Emergency Provider Emergency Medicine; PCP Physician Assistant; Visit Provider Emergency Medicine
DX: E11.65 Type 2 diabetes mellitus with hyperglycemia (principal); F17.210 Nicotine dependence, cigarettes, uncomplicated; G47.33 Obstructive sleep apnea (adult) (pediatric); Z79.51 Long term (current) use of inhaled steroids; Z79.899 Other long term (current) drug therapy; Z79.01 Long term (current) use of anticoagulants; Z86.718 Personal history of other venous thrombosis and embolism; Z86.711 Personal history of pulmonary embolism
CPT/HCPCS: 80048; 82009; 82962; 85025; 96360; 96361; 99284; J7030; A4216

== ENCOUNTER → 2023-11-01 | Outpatient (CLI) | payer MEDICARE, MEDICAID, SELFPAY ==
--- NOTE | 2023-11-01 12:45 | CT_ITS ---
STUDY: LOW DOSE CT LUNG CANCER SCREENING REASON FOR EXAM: Male, 53 years old. One pack per day smoker x38 years RADIATION DOSAGE (If Supplied By Facility): CTDIvol = ( 3.18 ) mGy, DLP = ( 111.59 ) mGycm TECHNIQUE: No contrast was administered. Low dose technique was utilized (average mAS-38 and kVp 120). 1.25 mm axial source images with a slice interval of 1.25-mm were reconstructed in lung windows. 2.5 mm axial source images with a slice interval of 2.5-mm were reconstructed in lung windows. 5.0 mm axial source images with a slice interval of 5.0-mm were reconstructed in soft tissue windows. COMPARISON: 10/27/2022 FINDINGS: Lung windows show the lungs to be normally expanded. There is nonspecific pleural thickening in both hemithoraces and a stable calcified granuloma noted in the lingula. There is no suspicious noncalcified mass or nodule. No organized infiltrate or effusion. No new suspicious noncalcified mass or nodule. Limited soft tissue windows show normal-appearing thyroid gland. No suspicious adenopathy. No calcified coronary vessels. Bony structures show degenerative change. Limited cuts through the upper abdomen do not show a suspicious abnormality Overall, no significant interval change since the previous study CT/Low Dose CT Lung Screening IMPRESSION: Lung-RADS category 2 - Continue annual screening with LDCT in 12 months. IMPORTANT NOTES FOR USE: ACR Lung-RADS Version 1.1 Assessment Categories Release Date: 2018 Category: Coded 0-4 bases on nodule(s) with highest degree of suspicion. Negative screen is defined as categories 1 and 2; a positive screen is defined as categories 3 and 4. Category 3 and 4A nodules that are unchanged on interval CT should be coded as category 2, and individuals returned to screening in 12 months. Category 4X: Category 3 or 4 nodules with additional imaging findings that increase the suspicion of lung cancer, such as spiculation, GGN that doubles in size in 1 year, enlarged lymph notes, etc. Category Modifiers: S (significant finding unrelated to lung cancer) Electronically Signed: Juaquin Bland MD at 14:47 EDT ,
== END | disposition home or self-care (01) ==
LOC: CT 12:44
PROVIDERS: PCP Physician Assistant; Referring Provider Nurse Practitioner Acute Care; Visit Provider Nurse Practitioner Acute Care
DX: Z12.2 Encounter for screening for malignant neoplasm of respiratory organs (principal); F17.210 Nicotine dependence, cigarettes, uncomplicated
CPT/HCPCS: 71271

== ENCOUNTER 2024-01-15 08:56 | Day surgery (SDC) | payer MEDICARE, MEDICAID, SELFPAY ==
[2024-01-15] MEDS: MethylPREDNISolone Acetate 80 MG/ML Vial (07:15)
--- NOTE | 2024-01-15 09:25 | RAD_ITS ---
PROCEDURE: Caudal block. DATE OF EXAMINATION: January 15, 2024. INDICATION: Male, 53 years old. Chronic low back pain. FLUOROSCOPY TIME (if supplied): (13 seconds) minutes/seconds. 16.39 mGy. 2 images were submitted. RAD/Fluor Guidance for Spine Inj IMPRESSION: Intraoperative fluoroscopic services provided for caudal block. Electronically Signed: Eliazar Fuens MD at 8:48 EDT ,
[2024-01-15 09:29] VITALS: BP 143/94; PULSE 95; RESP 16; TEMP 36.1; O2SAT 96; BMI 54.9
[2024-01-15] MEDS: Lidocaine 1% (5 ml sdv) 5 ML Vial (10:22)
[2024-01-15] MEDS: 0.9% Normal Saline (Pres. free 10 ML Vial (10:23)
[2024-01-15 10:25] LABS: Bedside Glucose 149 mg/dL (74-106)
--- NOTE | 2024-01-15 10:26 | OP.PCM_ITS ---
Report of Operation Date of Procedure: 01/15/24 Pre-Operative Diagnosis: Lumbosacral radiculopathy, lumbosacral degenerative di sc disease, lumbosacral spinal stenosis Post-Operative Diagnosis: Lumbosacral radiculopathy, lumbosacral degenerative disc disease, lumbosacral spinal stenosis Surgery/Procedure Performed:: Diagnostic/therapeutic caudal epidural steroid injection under fluoroscopic guidance Type of Anesthesia: Local Estimated Blood Loss (mL): Minimal Description of Procedure: DESCRIPTION OF PROCEDURE: History and physical of today was reviewed. Risks and benefits of the procedure were explained. The patient understood and agreed to proceed. Informed consent was obtained. IV inserted per routine protocol. The patient was taken to the operating room and placed in the prone position with a pillow positioned underneath the abdomen. The lower back and tailbone area was prepped and draped in a sterile fashion using iodine x3. Under fluoroscopy guidance on a lateral view, the caudal space was identified. The skin and subcutaneous tissue was anesthetized with approximately 3 mL of 1% lidocaine using a 25-gauge regular needle. Under direct visualization with fluoroscopy, using a 22-gauge 3-1/2-inch spinal needle, the needle was advanced via the skin through the sacral hiatus. The tip of the needle was passed through the sacrococcygeal ligament and advanced to approximately S4 area. After negative aspiration of blood or CSF, a total of 3 mL of contrast was injected to confirm correct placement of the needle as well as cephalad spread. The spread was followed to approximately L5 area. After confirmation on AP as well as lateral view and repeated negative aspiration, a total of 15 mL of preservative-free 0.125% Marcaine with 80 mg of Depo-Medrol was injected easily. The needle was then removed intact. The patient experienced no sign or symptoms of intrathecal or intravascular injection. The patient experienced no paresthesia. The procedure was completed without any apparent difficulty or any complications. The patient appeared to tolerate it well. ASSESSMENT AND PLAN: This is a 53-year-old male with lumbosacral radiculopathy, lumbosacral degenerative disc disease, lumbosacral spinal stenosis status post diagnostic/therapeutic caudal epidural steroid injection, patient will continue his current medications, patient will follow up in approximately 2 weeks for reevaluation. Complications None
[2024-01-15 10:33] VITALS: BP 131/79; BP 143/94; PULSE 89; RESP 14; TEMP 36.4; O2SAT 95
== END 2024-01-15 10:36 | disposition home or self-care (01) ==
LOC: SDC 08:57 → AC 08:58
PROVIDERS: PCP Physician Assistant; Referring Provider Anesthesiology Pain Medicine; Visit Provider Anesthesiology Pain Medicine
PROC: 3E0S3BZ Introduction of Anesthetic Agent into Epidural Space, Percutaneous Approach (ICD-10-PCS; CPT 62282; principal; 2024-01-15 10:40)
DX: M51.17 Intervertebral disc disorders with radiculopathy, lumbosacral region (principal); Z79.4 Long term (current) use of insulin; M48.07 Spinal stenosis, lumbosacral region; I10 Essential (primary) hypertension; F17.210 Nicotine dependence, cigarettes, uncomplicated; Z79.51 Long term (current) use of inhaled steroids; Z79.899 Other long term (current) drug therapy; Z79.84 Long term (current) use of oral hypoglycemic drugs; Z79.01 Long term (current) use of anticoagulants
CPT/HCPCS: 62323; J7120; 64483; 77003; 82962; J3490

== ENCOUNTER 2024-04-01 05:43 | Day surgery (SDC) | payer MEDICARE, MEDICAID, SELFPAY ==
--- OUTSIDE RECORDS SUMMARY | 2024-04-01 05:50 | XMS RPT_ITS | CCD ---
Author Organization [facility] CliniSyme Care Team Providers Care Drafter Assistant Name Role Phone Yensho COMPUTER [employer] PARA PROFESSIONAL, Yesenia A Unavailable Unavailab le Yensho COMPUTER LAB PARA PROFESSIONAL, Yesenia A Unavailable Unavailab le Zackery Quezada W Unavailable Unavailable Cordell, Dameon A Unavailable Unavailable Cordell, Dameon A Unavailable Unavailable No Doctor Assigned, Nodr Unavailable Unavail able HANIF, HUFZA Admitting Unavailable HANIF, HUFZA Attending Unavailable HANIF, HUFZA Consulting Unavailable HANIF, HUFZA Admitting Unavailable HANIF, HUFZA Attending Unavailable HANIF, HUFZA Consulting Unavailable DAVI LUKE Attending Unavailable DAVI, LUKE Consulting Unavailable DAVI, LUKE Primary Care Unavailable DAVI, LUKE Admitting Unavailable PROVIDER, UNKNOWN Consulting Unavailable London Lou Primary Care Provider London Lou Primary Care Provider Davi PA-C, Luke E Primary Care Provider Davi PA-C, Luke E Primary Care Provider Davi PA-C, Luke E Primary Care Provider Pending Provider Unavailable Unavailable Gerda, Mr. Johansen Attending Unavailable Pending, Provider Primary Care Unavailable Davi, Luke Attending Unavailable Pending, Provider Primary Care Unavailable Gerda, Mr. Johansen Attending Unavailable Pending, Provider Primary Care Unavailable Gerda, Mr. Johansen Attending Unavailable Pending, Provider Primary Care Unavailable Pending, Provider Primary Care Unavailable Davi, Luke Attending Unavailable Davi, Luke Attending Unavailable Pending, Provider Primary Care Unavailable Gerda, Mr. Johansen Attending Unavailable Pending, Provider Primary Care Unavailable Gerda, Valentin Johansen Attending Unavailable Pending, Provider Primary Care Unavailable Gerda, Mr. Johansen Attending Unavailable Pending, Provider Primary Care Unavailable Davi, Luke Attending Unavailable Pending, Provider Primary Care Unavailable Davi, Luke Attending Unavailable Pending, Provider Primary Care Unavailable Pending, Provider Primary Care Unavailable Davi, Luke Attending Unavailable Janas, Mr. Johansen Attending Unavailable Pending, Provider Primary Care Unavailable Janas, Mr. Johansen Attending Unavailable Pending, Provider Primary Care Unavailable Janas, Mr. Johansen Attending Unavailable Pending, Provider Primary Care Unavailable Janas, Mr. Johansen Attending Unavailable Pending, Provider Primary Care Unavailable Janas, Mr. Johansen Attending Unavailable Pending, Provider Primary Care Unavailable Davi, Luke Attending Unavailable Pending, Provider Primary Care Unavailable Davi, Luke Attending Unavailable Pending, Provider Primary Care Unavailable [place] Primary Care Unavailabl e JESSICA GARCIA Attending Unavailable [facility] Primary Care Unavailabl e LOU, [facility] Primary Care Unavailabl e Davi MURDOCK, Luke E Unavailable ([place]), [facility] Unavailabl e [facility] Unavailable Physical Therapy Provider Unavailable Unavaana valdez [facility], . [facility] Unavailable George NGUYEN, Dr. Salguero ([place] [facility]) A Unavail able Dr. Matias Hartman MD Unavailable Dr. Waqas Rodriguez Unavailable Halina Bosch CNP Unavailable Dr. Humberto Flores MD Unavailable [facility] Unavailable KEVIN NGUYEN, NARESH [place] Unavailable Rheumatolgy Provider Unavailable Unavailable [facility] Unavailable [phone] Endocrinology Provider Unavailable Unavailab le Sleep Disorder Provider Unavailable Unavaila Shelly Oakes LPN Unavailable Otto MURDOCK, Madhavi Carson Unavailable Rizwan NGUYEN, Zechariah Cannon Unavailable Galford MA, Fariba Unavailable Unavailable [place] COM[employer] PAR[employer] PROFESSIONAL, Usha C Unavailable Unavailable Gogoi (scribe), Hemanta Unavailable Unavaila ble Ben COMPUTER LAB PARA PROFESSIONAL, Samantha Unavailable Unavailable Filippo NGUYEN, London [place] Unavailable Matthew COMPUTER LAB PARA PROFESSIONAL, Cinthya Unavailable Unavailable Ailyn FERGUSON, Angeline [place] Unavailable Unavaila ble Martdayanaray COMPUTER LAB PARA PROFESSIONAL, Naomi Unavailable Unavailable Delfino (Scribe), Asad Unavailable Unavailab le Paz COMPUTER LAB PARA PROFESSIONAL, Babs Unavailable Unavailable Mutersbaugh COMPUTER LAB PARA PROFESSIONAL, Anabel K Unavailable Unavai labalber Marc (Scribe), Sherman Unavailable Unavailab le Richert COMPUTER LAB PARA PROFESSIONAL, Clare L Unavailable Unavailab le Brenda COMPUTER LAB PARA PROFESSIONAL, Wendy M Unavailable Unavailab le Jeromy COMPUTER LAB PARA PROFESSIONAL, Elvira Matt Unavailable Unavailab alber Liz MA, Cinthya Unavailable Unavailable Lourdes NGUYEN, Zackery [place] Unavailable Dinah COMPUTER LAB PARA PROFESSIONAL, Rama Unavailable Unavailabl e Mendoza COMPUTER LAB PARA PROFESSIONAL, Elba Noyola Unavailable Unavaila ble Unavailable Unavailable Heath COMPUTER LAB PARA PROFESSIONAL, Ricardo Unavailable Unavailable Davi PA-C, Luke E Primary Care Provider Davi PA-C, Luke E Primary Care Provider TIERRA CAAL JR Referring Unavaila ble DAVI, LUKE E Primary Care Unavailable TIERRA CAAL JR Referring Unavaila ble DAVI, LUKE E Primary Care Unavailable TIERRA CAAL JR Admitting Unavaila TIERRA George JR Attending Unavaila TIERRA George JR Referring Unavaila ble DAVI, LUKE E Primary Care Unavailable Augusta CAREYN, Mariah Unavailable Unavailabl e [facility] Unavailable DAVI, LUKE E Primary Care Unavailable DAVI, LUKE E Primary Care Unavailable DAVI, LUKE E Primary Care Unavailable DAVI, LUKE E Primary Care Unavailable BENDKENMMICAH Attending Unavaila ble DAVI, LUKE E Primary Care Unavailable DAVI, LUKE E Referring Unavailable MICAH REID Attending Unavaila ble DAVI, LUKE E Primary Care Unavailable TIERRA CAAL JR Attending Unavaila EDIN Alexander Primary Care Unavailable TIERRA CAAL JR Attending Unavaila ble Allergies Allergy Classification Reported Allergen(s) Allergy Type Date of Onset Reaction(s) Facility Opioid Agonists (1 source) Morphine Drug Allergy [facility] [employer] [employer] qui[facility] (1 source) quiNINE Drug Allergy [employer] (20 sources) quiNINE; Translations: [QUININE] drug allergy 07-14-2014 [facility] Work Phone: (20 sources) Morphine; Translations: [MORPHINE] Drug Allergy 01-31-2019 Itching [facility] (20 sources) quiNINE Drug Allergy [employer] NEGATED: Highlighted row has been ruled out!Unclassified (1 source) 05-14-2013 [employer] NEGATED: Highlighted row has been ruled out! (1 source) 05-14-2013 [employer] NEGATED: Highlighted row has been ruled out! (1 source) 05-14-2013 [employer] NEGATED: Highlighted row has been ruled out! (1 source) 05-14-2013 [employer] NEGATED: Highlighted row has been ruled out! (1 source) 05-14-2013 [employer] NEGATED: Highlighted row has been ruled out! (1 source) 05-14-2013 [employer] NEGATED: Highlighted row has been ruled out! (1 source) 05-14-2013 [employer] NEGATED: Highlighted row has been ruled out! (1 source) 05-14-2013 [employer] NEGATED: Highlighted row has been ruled out! (1 source) 05-14-2013 [employer] NEGATED: Highlighted row has been ruled out! (1 source) 05-14-2013 [employer] NEGATED: Highlighted row has been ruled out! (1 source) 05-14-2013 [employer] NEGATED: Highlighted row has been ruled out! (1 source) 05-14-2013 [employer] NEGATED: Highlighted row has been ruled out! (1 source) 05-14-2013 [employer] NEGATED: Highlighted row has been ruled out! (1 source) 05-14-2013 [employer] NEGATED: Highlighted row has been ruled out! (1 source) 05-14-2013 [employer] NEGATED: Highlighted row has been ruled out! (1 source) 05-14-2013 [employer] NEGATED: Highlighted row has been ruled out! (1 source) 05-14-2013 [employer] NEGATED: Highlighted row has been ruled out! (1 source) 05-14-2013 [employer] NEGATED: Highlighted row has been ruled out! (1 source) 05-14-2013 [employer] NEGATED: Highlighted row has been ruled out! (1 source) 05-14-2013 [employer] Medications Current Medications Medication Drug Class(es) Dates Sig (Normalized) Sig (Original) acetaminophen 325 mg / oxyCODONE hydrochloride 5 mg oral tablet (20 sources) Opioid Agonist Start: 08-27-2018 take 1 tablet by mouth every six hours as needed oxyCODONE-acetami nophen (PERCOCET) 5-325 mg tablet Take 1 tablet by mouth every 6 hours as needed. 08/27/2018 Active Start: 08-27-2018 oxyCODONE-acet aminophen (PERCOCET) 5-325 mg tablet Start: 09-21-2016 End: 12-21-2016 take 1 tablet by mouth every six hours as needed PERCOCET 5-325 MG TABS 1 tab po q6h as needed OXYCODONE-ACETAMINOPHEN [id number] Lydia Giuliana Rice COMPUTER LAB PARA PROFESSIONAL Start: 09-21-2016 take 1 tablet by savanna th every six hours as needed PERCOCET 5-325 MG TABS 1 tab po q6h as needed OXYCODONE-ACETAMINOPHEN [id number] Lydia Giuliana Rice COMPUTER LAB PARA PROFESSIONAL Start: 02-17-2016 End: 03-16-2016 take 1-2 tablets by mouth every six hours as needed PERCOCET 5-325 MG TABS 1-2 tab po q6h as needed OXYCODONE-ACETAMINOPHEN [id number] Lydia Giuliana Rice COMPUTER LAB PARA PROFESSIONAL Start: 02-17-2016 take 1-2 tablets by mouth every six hours as needed PERCOCET 5-325 MG TABS 1-2 tab po q6h as needed OXYCODONE-ACETAMINOPHEN [id number] Lydia Giuliana Rice COMPUTER LAB PARA PROFESSIONAL Start: 02-10-2016 End: 03-07-2016 Start: 02-10-2016 End: 03-07-2016 take 2 tablets by mouth every four hours as needed for pain, then take 8 tablets by mouth once daily as needed for pain Oxycodone-Acetaminophen 5-325 MG/5ML Ora l Solution ; 2 (two) tabs every four hours PRN severe pain, not to exceed 8 tablets daily for 0 days Quantity: 112 Refills: 0 Ordered: 07-Mar-2016 LEDA Donaldson Start: 10-Feb-2016 End: 07-Mar-2016 Status: Inactive Start: 03-04-2015 End: 07-09-2015 Start: 03-04-2015 End: 07-09-2015 take 1 tablet by mouth every four hours as needed for pain PERCOCET, 5-325MG (Oral Tablet) ; 1(one) - 2(two) Tablet every four hours as needed for severe pain for 0 days Quantity: 30 {Tablet} Refills: 0 Ordered: 09-Jul-2015 LEDA Serrano Start: 04-Mar-2015 End: 09-Jul-2015 Status: Inactive Comments: Medication taken as needed. take 2 tablets by mo uth every six hours Percocet 7.5-325 MG Oral Tablet ; 2 ever y 6 hours (7.5-325 MG) Status: Inactive Comment on above: Take 1 tablet by savanna th every 6 hours as needed. Medication taken as needed. [id number] 200 actuat albuter ol 0.09 mg/actuat metered dose inhaler (20 sources) beta2-Adrenergic Agonist Start: 01-24-2024 Start: 06-18-2013 End: 06-30-2014 PROAIR HFA, 108 (90 Base)MCG /ACT (Inhalation Aerosol Solution) ; 1 inhaler 2 puffs every four hours as needed for cough or wheeze for 0 days Quantity: 1 {Inhaler} Refills: 4 Ordered: 30-Jun-2014 LEDA Donaldson Start: 18-Jun-2013 End: 30-Jun-2014 Status: Inactive Comments: Medication taken as needed. take 2 puff(s) by in halation every four hours as needed for wheezing albuterol HFA (PROVENTIL HFA, VENTOLIN HFA) 90 mcg/actuation inhaler Inhale 2 Puffs as instructed every 4 hours as needed for wheezing/shortness of breath. Active take 2 puff(s) by in halation every four hours as needed ProAir HFA 108 (90 Base) MCG/ACT Inhalation Aerosol Solution ; 2 puffs every 4 hours PRN (108 (90 Base) MCG/ACT) Comment on above: Inhale 2 Puffs as in structed every 4 hours as needed. Medication taken as needed. atenolol 50 mg oral tablet (20 sources) beta-Adrenergic Dylan Start: 12-09-2021 Start: 06-14-2017 End: 06-14-2017 Start: 02-17-2016 take 1 tablet by savanna th once daily TENORMIN 100 MG TABS One tablet by mouth daily ATENOLOL [id number] Lydia Rice LPN Start: 10-27-2014 End: 01-25-2022 atenolol (TENORMIN) 100 mg t ablet Take 50 mg by mouth twice daily. 0 10/27/2014 01/25/2022 Discontinued Comment on above: 50 mg twice daily. Take 50 mg by mouth twice daily. Take by mouth twice daily. BD Insulin Syringe (18 sources) Start: 02-22-2024 Start: 11-28-2023 Start: 10-30-2023 betamethasone 0.5 mg/ml topical cream (15 sources) Corticosteroid Start: 11-28-2023 Blood-Glucose Sensor (DEXCOM G7 SENSOR) elia (7 sources) Start: 03-27-2024 Blood-Glucose Sensor (DEXCOM G7 SENSOR) elia Indications: Type 2 diabetes mellitus without complication, with long-term current use of insulin (HCC) Inject 1 Each subcutaneously every 10 days. Patient should start on March 27, 2024. 3 Each 2 03/27/2024 Active Start: 02-07-2024 End: 02-27-2024 Blood-Glucose Sensor (DEXCOM G7 SENSOR) elia Indications: Type 2 diabetes mellitus without complication, with long-term current use of insulin (HCC) 1 EACH EVERY 10 DAYS. -E11.9 3 Each 2 02/07/2024 02/27/2024 Discontinued Start: 02-07-2024 Blood-Glucose Sensor (DEXCOM G7 SENSOR) elia Indications: Type 2 diabetes mellitus without complication, with long-term current use of insulin (HCC) 1 EACH EVERY 10 DAYS. -E11.9 3 Each 2 02/07/2024 Active Start: 01-15-2024 End: 02-07-2024 Blood-Glucose Sensor (DEXCOM G7 SENSOR) elia Indications: Type 2 diabetes mellitus without complication, with long-term current use of insulin (HCC) 1 Each every 10 days. 3 Each 2 01/15/2024 02/07/2024 Discontinued Start: 01-10-2024 Blood-Glucose Sensor (DEXCOM G7 SENSOR) elia Indications: Type 2 diabetes mellitus without complication, with long-term current use of insulin (HCC) 1 Each every 10 days. 3 Each 2 01/10/2024 Active ciprofloxacin 500 mg oral tablet (20 sources) Quinolone Antimicrobial Start: 09-06-2022 End: 09-06-2022 ciprofloxacin HCl 500 mg tab(s) (CIPRO) Start: 06-25-2019 End: 07-05-2019 Start: 03-19-2018 End: 03-24-2018 cyclobenzaprine hydrochloride 10 mg oral tablet (20 sources) Muscle Relaxant Start: 09-20-2023 take 1 tablet by mouth every eight hours as needed cyclobenzaprine (FLEXERIL) 10 mg tablet Take 10 mg by mouth three times a day as needed for muscle spasm. 09/20/2023 Active Start: 10-25-2018 End: 11-08-2018 Start: 10-25-2018 End: 11-08-2018 take 1 tablet by mouth once daily at bedtime as needed Cyclobenzaprine HCl 10 MG Oral Tablet ; 1 (one) Tablet daily at bedtime PRN for 0 days Quantity: 30 {Tablet} Refills: 0 Ordered: 08-Nov-2018 LEDA Contreras Samantha Start: 25-Oct-2018 End: 08-Nov-2018 Status: Inactive Start: 03-16-2016 take 1 tablet by savanna th once daily as needed CYCLOBENZAPRINE HCL 10 MG TABS One tablet by mouth daily as needed CYCLOBENZAPRINE HCL [id number] Lydia Kateaster Rice LPN Start: 07-28-2010 End: 05-09-2011 take 1 tablet by mouth three times daily as needed FLEXERIL, 10MG (Oral Tablet) ; 1 Tab three times daily, as needed for 0 days Quantity: 40 {Tab} Refills: 0 Ordered: 09-May-2011 LEDA Keller Start: 28-Jul-2010 End: 09-May-2011 Status: Inactive Comments: Medication taken as needed. May cause drowsiness. take 1 tablet by savanna th every eight hours as needed cyclobenzaprine (FLEXERIL) 10 mg tablet Take 10 mg by mouth every 8 hours as needed. 0 Active Comment on above: Take 10 mg by mouth every 8 hours as needed. Medication taken as needed. Medication taken as needed. May cause drowsiness. diazePAM 5 mg oral tablet (10 sources) Benzodiazepine Start: take 1 tablet by mouth every eight hours as needed diazePAM (VALIUM) 5 mg tablet Take 5 mg by mouth three times a day as needed. 06/28/2023 Active FLUoxetine 20 mg oral capsule (20 sources) Serotonin Reuptake Inhibitor Start: 4 Start: 06-07-2023 FLUoxetine 10 mg capsule ; 1 (one) Capsule daily for 0 days Quantity: 90 {Capsule} Refills: 1 Ordered: 07-Jun-2023 COLLETTE Tomlinson Start: 07-Jun-2023 Start: 09-10-2021 Start: 09-10-2021 End: 10-05-2022 Comment on above: Take 20 mg by mouth once daily. 60 actuat fluticasone propio cary 0.1 mg/actuat / salmeterol 0.05 mg/actuat dry powder inhaler (8 sources) Corticosteroid, beta2-Adrenergic Agonist Start: 01-24-2024 furosemide 40 mg oral tablet (20 sources) Loop Diuretic Start: 06-07-2023 Start: 09-21-2016 take 1 tablet by savanna th once daily FUROSEMIDE 20 MG TABS One tablet by mouth daily FUROSEMIDE [id number] Lydia Giuliana Rice LPN take 2 tablets by mo uth once daily furosemide (LASIX) 20 mg tablet Take 40 mg by mouth once daily. 0 Active Comment on above: Take 40 mg by mouth once daily. gabapentin 600 mg oral table t (20 sources) Anti-epileptic Agent Start: 03-19-2024 Start: 10-18-2023 End: 10-18-2023 gabapentin 300 mg cap(s) (NEURONTIN) Start: 09-25-2023 Start: 06-07-2023 gabapentin 600 mg tablet ; 1 (one) Capsule three times daily for 0 days Quantity: 270 {Capsule} Refills: 1 Ordered: 07-Jun-2023 COLLETTE Tomlinson Start: 07-Jun-2023 Start: 02-18-2016 take 1 tablet by savanna th three times daily GABAPENTIN 300 MG CAPS One tablet by mouth three times daily GABAPENTIN [id number] Lydia Rice LPN Start: 02-10-2016 take 2 tablets by mo ut three times daily GABAPENTIN 300 MG CAPS Two tablets by mouth three times daily GABAPENTIN [id number] Lydia Giuliana Dwayne TOMPKINS take 1 tablet by savanna th three times daily at mealtime gabapentin 600 mg Tb24 Take 1 tablet by mouth three times daily with meals. Active Comment on above: 600 mg three times d aily. Take 1 tablet by savanna th three times daily with meals. 3 ml insulin glargine 100 un t/ml pen injector (20 sources) Insulin Analog Start: 01-18-2024 End: 02-27-2024 Start: 11-22-2023 End: 11-28-2023 Start: 11-10-2023 Start: 11-08-2023 Start: 05-03-2019 End: 06-25-2019 Start: 07-31-2018 FEDE WILKINS U-100 INSULIN 100 unit/mL (3 mL) inpn 20 Units twice daily. 0 07/31/2018 Active Comment on above: 20 Units twice daily . insulin, regular, human 100 unt/ml injectable solution (20 sources) Insulin Start: 10-31-2023 NOVOLIN R REGULAR U100 INSULIN 100 unit/mL injection inject nothing if glucose 10/31/2023 Active Start: 10-30-2023 iv contrast (will be provided with radiology test) (1 source) Start: 01-21-2022 End: 01-22-2022 iv contrast (will be provided with radiology test) CT Urogram WO/W Inject, intravenously, once for 1 dose.No IV access, insert saline lock prior to the beginning of sedation, infusion, injection of imaging exam. Discontinue saline lock post exam. If Pt. has a central line or IVAD, may access for administration according to line specific nursing protocol. Once exam is complete flush line and de-access according to line specific nursing protocol in the CT contrast administration guidelines link. 1 Each 0 01/21/2022 01/22/2022 Active Comment on above: CT Urogram WO/W Inje ct, intravenously, once for 1 dose.No IV access, insert saline lock prior to the beginning of sedation, infusion, injection of imaging exam. Discontinue saline lock post exam. If Pt. has a central line or IVAD, may access for administration according to line specific nursing protocol. Once exam is complete flush line and de-access according to line specific nursing protocol in the CT contrast administration guidelines link. losartan potassium 50 mg oral tablet (20 sources) Angiotensin 2 Receptor Dylan Start: 08-21-2018 Comment on above: Take 50 mg by mouth once daily. metFORMIN hydrochloride 1000 mg oral tablet (20 sources) Biguanide Start: 01-10-2024 End: 02-27-2024 take 1 tablet by mouth twice daily metFORMIN (GLUCOPHAGE) 1,000 mg tablet Indications: Type 2 diabetes mellitus without complication, with long-term current use of insulin (HCC) Take 1 tablet by mouth two times a day. 180 tablet 02/27/2024 Active Start: 11-28-2023 Start: 04-21-2020 End: 04-08-2022 End: 01-25-2022 take 1 tablet by mouth once daily at breakfast metFORMIN ER (FORTAMET) 1,000 mg 24 hr tablet Take 1,000 mg by mouth daily with breakfast. 0 01/25/2022 Discontinued take 1 tablet by savanna th twice daily at mealtime metFORMIN (GLUCOPHAGE) 500 mg tablet Take 500 mg by mouth twice daily with meals. 0 Active take 1 tablet by savanna th twice daily at mealtime metFORMIN ER (FORTAMET) 1,000 mg 24 hr tablet Take 1,000 mg by mouth twice daily with meals. 0 Active Comment on above: Take 500 mg by mouth twice daily with meals. Take 1,000 mg by savanna th twice daily with meals. Take 1,000 mg by savanna th daily with breakfast. omeprazole 20 mg delayed release oral capsule (20 sources) Proton Pump Inhibitor Start: 5 Comment on above: Take by mouth twice daily. ondansetron 4 mg oral tablet (2 sources) Serotonin-3 Receptor Antagonist Start: 3 End: 3 take 1 tablet by mouth every eight hours as needed ondansetron (ZOFRAN) 4 mg tablet Indications: Malignant neoplasm of urinary bladder, unspecified site (HCC) Take 1 tablet by mouth every 8 hours as needed. 30 tablet 0 04/06/2023 05/06/2023 Active Comment on above: Take 1 tablet by savanna th every 8 hours as needed. 24 hr oxybutynin chloride 5 mg extended release oral tablet (20 sources) Cholinergic Muscarinic Antagonist Start: 4 End: 4 oxybutynin XL (DITROPAN XL) 5 mg 24 hr tablet Indications: Malignant neoplasm of urinary bladder, unspecified site (HCC) Use daily, or as needed for bladder spasms 90 tablet 3 10/06/2023 Active Start: 03-11-2022 End: 03-14-2023 oxybutynin XL (DITROPAN XL) 5 mg 24 hr tablet Indications: Malignant neoplasm of urinary bladder, unspecified site (HCC) Use daily, or as needed for bladder spasms 30 tablet 3 03/14/2023 Active Start: 02-10-2022 End: 02-25-2022 take 1 tablet by mouth once daily oxybutynin XL (DITROPAN XL) 5 mg 24 hr tablet Take 1 tablet by mouth once daily for 15 days. 15 tablet 0 02/10/2022 Active Start: 11-11-2021 End: 11-26-2021 take 1 tablet by mouth once daily oxybutynin XL (DITROPAN XL) 5 mg 24 hr tablet Take 1 tablet by mouth once daily for 15 days. 15 tablet 0 11/11/2021 Active Start: 10-05-2018 take 1 tablet by savanna th three times daily for muscle spasms oxybutynin (DITROPAN) 5 mg tablet Indications: Bladder spasm Take 1 tablet by mouth three times daily. For bladder spasm. MUST stop taking 24 hrs prior to catheter removal 30 tablet 0 10/05/2018 Active Comment on above: Take 1 tablet by savanna th three times daily. For bladder spasm. MUST stop taking 24 hrs prior to catheter removal Take 1 tablet by savanna th once daily for 15 days. Use daily, or as nee ded for bladder spasms Ozempic (10 sources) Start: 11-28-2023 Start: 10-24-2023 Ozempic (10 sources) Start: 01-10-2024 OZEMPIC 0.25 mg or 0.5 mg (2 mg/3 mL) pen (4 sources) Start: 10-24-2023 OZEMPIC 0.25 m g or 0.5 mg (2 mg/3 mL) pen inject 0.25 MG INTO THE SKIN every WEEK 10/24/2023 Active Start: 10-24-2023 OZEMPIC 0.25 m g or 0.5 mg (2 mg/3 mL) pen inject 0.25 MG INTO THE SKIN every WEEK 0 10/24/2023 Active Ozempic 0.25 mg or 0.5 mg (2 mg/3 mL) subcutaneous pen injector (2 sources) Start: 10-24-2023 Ozempic 0.25 mg or 0.5 mg (2 mg/3 mL) subcutaneous pen injector ; 0.25 mg q week for 0 days Quantity: 4 {Each} Refills: 0 Ordered: 24-Oct-2023 MD Zechariah Astorga Start: 24-Oct-2023 Comments: prefilled pen syringes Comment on above: prefilled pen syring es phenazopyridine hydrochloride 200 mg oral tablet (6 sources) Start: 10-18-2023 End: 11-01-2023 take 1 tablet by mouth every eight hours as needed phenazopyridine (PYRIDIUM) 200 mg tablet Take 1 tablet by mouth three times a day as needed for up to 14 days. 15 tablet 0 10/18/2023 11/01/2023 Active Start: 11-11-2021 take 1 tablet by savanna th every eight hours as needed phenazopyridine (PYRIDIUM) 200 mg tablet Take 1 tablet by mouth three times daily as needed. 9 tablet 0 11/11/2021 Active Start: 10-24-2018 take 1 tablet by savanna th every eight hours as needed phenazopyridine (PYRIDIUM, GERIDIUM) 200 mg tablet Take 1 tablet by mouth three times daily as needed. 15 tablet 0 10/24/2018 Active Comment on above: Take 1 tablet by savanna th three times daily as needed. rivaroxaban 20 mg oral tablet (20 sources) Factor Xa Inhibitor Start: 02-17-2016 take 1 tablet by mouth twice daily XARELTO 15 MG TABS One tablet by mouth twice daily RIVAROXABAN [id number] Lydia Rice LPN Start: 02-05-2016 Start: 02-05-2016 XARELTO 15 mg tablet Indications: RESTART ON Monday02/22/19 Take 20 mg by mouth once daily. 0 02/05/2016 Active Comment on above: Take 20 mg by mouth once daily. 1 mg dose 1.5 ml semaglutide 1.34 mg/ml pen injector (3 sources) Start: 2023 End: 2023 inject 1 mg by subcutaneous injection every week semaglutide (OZEMPIC) 1 mg/0.75 ml subcutaneous pen injector Indications: Type 2 diabetes mellitus without complication, with long-term current use of insulin (HCC) Inject 1 mg subcutaneously one time a week. 6 mL 1 02/27/2024 Active 1000 ml sodium chloride 9 mg/ml injection (1 source) Start: 2021 End: 2021 inject 1 dose intravenously once 0.9 % sodium chloride (NACL 0.9%) infusion Inject 5-30 mL/hr intravenously one time only for 1 dose. Administer at rate defined per CT contrast administration specifications. To be provided with radiology test. 1 Each 0 01/21/2022 01/21/2022 Active Comment on above: Inject 5-30 mL/hr in travenously one time only for 1 dose. Administer at rate defined per CT contrast administration specifications. To be provided with radiology test. tamsulosin hydrochloride 0.4 mg oral capsule (20 sources) alpha-Adrenergic Dylan Start: 2023 End: 2023 take 1 capsule by mouth once daily at bedtime tamsulosin (FLOMAX) 0.4 mg Take 1 capsule by mouth daily at bedtime. 90 capsule 3 10/06/2023 Active Start: 10-21-2021 End: 10-24-2022 take 1 capsule by mouth once daily at bedtime tamsulosin (FLOMAX) 0.4 mg Take 1 capsule by mouth daily at bedtime. 82 capsule 3 10/24/2022 Active Comment on above: Take 1 capsule by mo [facility] daily at bedtime for 90 doses. TAKE 1 CAPSULE BY MO [facility] DAILY AT BEDTIME. triamcinolone acetonide 1 mg/ml topical cream (16 sources) Corticosteroid Start: 11-22-2023 Trulicity 3 mg/0.5 mL subcutaneous pen injector (2 sources) Start: 07-12-2023 Trulicity 3 mg/0.5 mL subcutaneous pen injector ; 1 (one) Solution Pen-injector weekly for 0 days Quantity: 3 {Each} Refills: 1 Ordered: 12-Jul-2023 COLLETTE Tomlinson Start: 12-Jul-2023 Start: 04-18-2023 Trulicity 3 mg /0.5 mL subcutaneous pen injector ; 1 (one) Solution Pen-injector weekly for 0 days Quantity: 3 {Each} Refills: 1 Ordered: 18-Apr-2023 COLLETTE Tomlinson Start: 18-Apr-2023 varenicline 1 mg oral tablet (20 sources) Partial Cholinergic Nicotinic Agonist Start: 10-21-2021 take 1 tablet by mouth twice daily varenicline (CHANTIX) 1 mg tablet Take 1 tablet by mouth twice daily. 60 tablet 3 10/21/2021 Active Start: 04-08-2021 End: 10-21-2021 take 1 tablet by mouth twice daily varenicline (CHANTIX) 0.5 mg tablet Take 1 tablet by mouth twice daily. 60 tablet 5 04/08/2021 10/21/2021 Discontinued Start: 10-25-2018 End: 04-11-2019 Start: 08-18-2017 End: 09-17-2017 Start: 08-18-2017 End: 09-17-2017 take 1 tablet by mouth once Chantix Starting Month Beth 0.5 MG X 11 & 1 MG X 42 Oral Tablet ; 1 (one) Tablet(s) as directed for 30 days Quantity: 1 {Package} Refills: 0 Ordered: 18-Aug-2017 MD London Lou Start: 18-Aug-2017 End: 17-Sep-2017 Status: Inactive Start: 07-24-2015 End: 03-07-2016 Comment on above: Take 1 tablet by savanna twice daily. Completed/Discontinued Medications Medication Drug Class(es) Dates Sig (Normalized) Sig (Original) acetaminophen 325 mg oral tablet (20 sources) Start: 10-18-2023 End: 10-18-2023 acetaminophen 975 mg tab(s) (TYLENOL) take 2 tablets by mo [facility] every six hours as needed acetaminophen (TYLENOL) 325 mg tablet Ta ke 650 mg by mouth every 6 hours as needed for pain. Active Comment on above: Take 650 mg by mouth every 6 hours as needed. Medication taken as needed. albuterol 0.833 mg/ml / ipratropium bromide 0.167 mg/ml inhalation solution (20 sources) Anticholinergic, beta2-Adrenergic Agonist Start: 10-18-2023 End: 10-19-2023 ipratropium-albuterol 3 mL nebulizer solution (DUONEB) Start: 06-18-2013 End: 06-30-2014 Start: 06-18-2013 End: 06-30-2014 take 1 dose by inhalation every four hours as needed IPRATROPIUM-ALBUTEROL, 0.5-2.5 (3)MG/3ML (Inhalation Solution) ; 1 (one) vial every four hours as needed per nebulizer for 0 days Quantity: 50 {Vial} Refills: 2 Ordered: 30-Jun-2014 LEDA Donaldson Start: 18-Jun-2013 End: 30-Jun-2014 Status: Inactive Comments: Medication taken as needed. Comment on above: Medication taken as needed. amoxicillin 875 mg / clavula cary 125 mg oral tablet (20 sources) Penicillin-class Antibacterial Start: 01-24-2024 End: 02-03-2024 Start: 06-18-2013 End: 06-25-2013 Start: 06-18-2013 End: 06-25-2013 take 1 tablet by mouth twice daily AUGMENTIN, 875-125MG (Oral Tablet) ; 1 (one) Tablet two times daily for 7 days Quantity: 14 {Tablet} Refills: 0 Ordered: 18-Jun-2013 MD London Lou Start: 18-Jun-2013 End: 25-Jun-2013 Status: Inactive aspirin 81 mg oral strip (20 sources) Nonsteroidal Anti-inflammatory Drug Start: 07-14-2014 End: 09-21-2016 take 1 tablet by mouth once daily ASPIRIN 81 MG TABS One tablet by mouth daily ASPIRIN [id number] Hannah Villalta RN azithromycin 500 mg oral tab let (20 sources) Macrolide Antimicrobial Start: 08-18-2017 End: 08-21-2017 Start: 04-12-2011 End: 04-15-2011 Start: 04-12-2011 End: 04-15-2011 take 1 tablet by mouth once daily ZITHROMAX TRI-BETH, 500MG (Oral Tablet) ; 1 (one) Tablet daily for 3 days Quantity: 3 {Tablet} Refills: 0 Ordered: 12-Apr-2011 LEDA Harris Start: 12-Apr-2011 End: 15-Apr-2011 Status: Inactive Start: 09-15-2010 End: 05-09-2011 Start: 09-15-2010 End: 05-09-2011 ZITHROMAX Z-BETH, 250MG (Oral Tablet) ; 2 (two) Tabs day one, then one daily for 4 days for 0 days Quantity: 1 {Z-pack} Refills: 0 Ordered: 09-May-2011 LEDA Keller Start: 15-Sep-2010 End: 09-May-2011 Status: Inactive breath-actuated 120 actuat b eclomethasone dipropionate 0.04 mg/actuat metered dose inhaler (20 sources) Corticosteroid Start: 04-12-2011 End: 09-04-2012 Start: 04-12-2011 End: 09-04-2012 take 1 puff(s) by inhalation twice daily QVAR, 40MCG/ACT (Inhalation Aerosol Solution) ; 1 puff(s) two times daily for 0 days Quantity: 1 {unit(s)} Refills: 5 Ordered: 04-Sep-2012 LEDA Donaldson Start: 12-Apr-2011 End: 04-Sep-2012 Status: Inactive 12 hr buPROPion hydrochloride 150 mg extended release oral tablet (20 sources) Aminoketone Start: 11-08-2018 End: 12-18-2018 calcium chloride 0.0014 meq/ml / potassium chloride 0.004 meq/ml / sodium chloride 0.103 meq/ml / sodium lactate 0.028 meq/ml injectable solution (1 source) Start: 10-18-2023 End: 10-19-2023 lactated ringers iv infusion celecoxib 200 mg oral capsule (20 sources) Nonsteroidal Anti-inflammatory Drug Start: 10-18-2023 End: 10-18-2023 celecoxib 400 mg cap(s) (CeleBREX) cephalexin 500 mg oral capsule (20 sources) Cephalosporin Antibacterial Start: 09-19-2023 End: 09-19-2023 cephALEXin 500 mg cap(s) (KEFLEX) Start: 03-14-2023 End: 03-14-2023 cephALEXin 500 mg cap(s) (KE FLEX) Start: 04-21-2022 End: 04-21-2022 cephALEXin 500 mg cap(s) (KE FLEX) Start: 01-20-2022 End: 01-20-2022 cephALEXin 500 mg cap(s) (KE FLEX) Start: 10-21-2021 End: 10-21-2021 cephALEXin 500 mg cap(s) (KE FLEX) Start: 11-19-2015 End: 11-26-2015 chondroitin sulfates 600 mg / glucosamine hydrochloride 750 mg oral tablet (20 sources) take 1 tablet by mouth once antonette y Glucosamine-Chondroitin 750-600 MG Oral Tablet ; 1 daily (750-600 MG) Status: Inactive DILTIAZEM HCL COATED BEADS (20 sources) Calcium Channel Dylan Start: 07-14-2014 take 1 tablet by mouth once daily CARDIZEM CD 360 MG [id number] One tablet by mouth daily DILTIAZEM HCL COATED BEADS [id number] Hannah Villalta RN Start: 07-14-2014 End: 02-17-2016 take 1 tablet by mouth once daily CARDIZEM CD 360 MG [id number] One tablet by mouth daily DILTIAZEM HCL COATED BEADS [id number] Lydia Mittalkristy TOMPKINS Start: 06-30-2014 End: 06-30-2014 docusate sodium 100 mg oral capsule (20 sources) dulaglutide (20 sources) GLP-1 Receptor Agonist Start: 09-12-2023 End: 10-24-2023 dulaglutide (TRULICITY) 4.5 mg/0.5 mL pen injector (9 sources) Start: 09-12-2023 End: 02-27-2024 dulaglutide (TRULICITY) 4.5 mg/0.5 mL pen injector Inject subcutaneously one time a week. 09/12/2023 02/27/2024 Discontinued (Other) Start: 09-12-2023 dulaglutide (T RULICITY) 4.5 mg/0.5 mL pen injector Inject subcutaneously one time a week. 09/12/2023 Active Start: 09-12-2023 dulaglutide (T RULICITY) 4.5 mg/0.5 mL pen injector Inject subcutaneously one time a week. 0 09/12/2023 Suspended Start: 09-12-2023 dulaglutide (T RULICITY) 4.5 mg/0.5 mL pen injector Inject subcutaneously one time a week. 0 09/12/2023 Active Easy Touch (20 sources) Start: 08-09-2018 End: 01-20-2020 1 ml fentaNYL 0.05 mg/ml injection (1 source) Opioid Agonist Start: 10-18-2023 End: 10-18-2023 fentaNYL 50 mcg/mL 50 mcg injection (SUBLIMAZE) fluconazole 100 mg oral tablet (20 sources) Azole Antifungal Start: 08-18-2017 End: 08-23-2017 26.3 ml gemcitabine 38 mg/ml injection (1 source) Nucleoside Metabolic Inhibitor Start: 04-06-2023 End: 04-06-2023 gemcitabine 1,000 mg intravesical (GEMZAR) gemcitabine 1,000 mg in NaCl 0.9% 50 mL (GEMZAR) (5 sources) Start: 03-31-2022 End: 03-31-2022 gemcitabine 1,000 mg in NaCl 0.9% 50 mL (GEMZAR) Start: 03-24-2022 End: 03-24-2022 gemcitabine 1,000 mg in NaCl 0.9% 50 mL (GEMZAR) Start: 03-17-2022 End: 03-17-2022 gemcitabine 1,000 mg in NaCl 0.9% 50 mL (GEMZAR) Start: 03-10-2022 End: 03-10-2022 gemcitabine 1,000 mg in NaCl 0.9% 50 mL (GEMZAR) Start: 03-03-2022 End: 03-03-2022 gemcitabine 1,000 mg in NaCl 0.9% 50 mL (GEMZAR) glimepiride 4 mg oral tablet (20 sources) Sulfonylurea take 1 tablet by savanna th twice daily at mealtime glimepiride (AMARYL) 2 mg tablet Take 2 mg by mouth twice daily with meals. 0 Active Comment on above: Take 4 mg by mouth t wice daily with meals. Take 2 mg by mouth t wice daily with meals. 4 mg in am2 mg in ev ening glucosam beal [id number] (20 sources) GLUCOSAMINE 1500 COMPLEX (Oral Capsule) (14 sources) take 1 capsule by mouth twice daily GLUCOSAMINE 1500 COMPLEX (Oral Capsule) ; 1 two times daily Status: Inactive hydroCHLOROthiazide 25 mg oral tablet (20 sources) Thiazide Diuretic Start: 016 End: hydroCHLOROthiazide 12.5 mg / lisinopril 10 mg oral tablet (20 sources) Thiazide Diuretic, Angiotensin Converting Enzyme Inhibitor Start: End: Start: 08-09-2018 End: 04-11-2019 take 1 tablet by mouth once daily Lisinopril-hydroCHLOROthiazide 10-12.5 M G Oral Tablet ; 1 (one) Tab daily for 0 days Quantity: 30 {Tablet} Refills: 11 Ordered: 11-Apr-2019 MARTY Robertson Start: 09-Aug-2018 End: 11-Apr-2019 Status: Inactive Start: 07-14-2014 take 1 tablet by savanna th once daily ZESTORETIC 10-12.5 MG TABS One tablet by mouth daily LISINOPRIL-HYDROCHLOROTHIAZIDE [id number] Hannah Villatla RN 0.5 ml HYDROmorphone hydrochloride 1 mg/ml prefilled syringe (1 source) Opioid Agonist Start: 10-18-2023 End: 10-19-2023 HYDROmorphone 0.5 mg injection (DILAUDID) ibuprofen 800 mg oral tablet (4 sources) Nonsteroidal Anti-inflammatory Drug Start: 07-14-2014 End: 02-17-2016 take 1 tablet by mouth four times daily as needed for pain IBUPROFEN 800 MG TABS One tablet by mouth four times daily as needed for pain IBUPROFEN [id number] Lydia Rice LPN 3 ml insulin lispro 100 unt/ml pen injector (20 sources) Insulin Analog Start: 06-03-2019 End: 01-20-2020 Start: 06-03-2019 End: 01-20-2020 HumaLOG KwikPen 100 UNIT/ML Subcutaneous Solution Pen-injector ; 1 (one) Solution Pen-injector three times daily before meals for 0 days Quantity: 1 {Box} Refills: 2 Ordered: 20-Jan-2020 LEDA Pinzon Elvira Matt Start: 03-Jun-2019 End: 20-Jan-2020 Status: Inactive Comments: [id number](called in to [facility]) insulin lispro ( HUMALOG PEN SUBCUTANEOUS) Inject subcutaneously three times daily as needed (Sliding Scale as neede for Blood sugar before meals). If over 250 extra 5 units 0 Active Comment on above: Inject subcutaneousl y three times daily as needed (Sliding Scale as neede for Blood sugar before meals). If over 250 extra 5 units [id number] 50=15units(called in to [facility]) isopropyl alcohol 0.7 ml/ml medicated pad (20 sources) Start: 06-03-2019 End: 01-20-2020 lidocaine hydrochloride 0.02 mg/mg topical gel (12 sources) Antiarrhythmic, Amide Local Anesthetic Start: 09-19-2023 End: 09-19-2023 lidocaine urojet 2 % 11 mL topical gel (GLYDO) Start: 04-06-2023 End: 04-06-2023 lidocaine urojet 2 % 11 mL t opical gel (GLYDO) Start: 03-14-2023 End: 03-14-2023 lidocaine 2 % topical gel (X YLOCAINE) Start: 09-06-2022 End: 10-06-2022 lidocaine urojet 2 % 6 mL to pical gel (GLYDO) Start: 04-21-2022 End: 04-21-2022 lidocaine 2 % (XYLOCAINE) Start: 03-31-2022 End: 03-31-2022 lidocaine urojet 2 % 11 mL t opical gel (XYLOCAINE, GLYDO) Start: 03-24-2022 End: 03-24-2022 lidocaine urojet 2 % 11 mL t opical gel (XYLOCAINE, GLYDO) Start: 03-17-2022 End: 03-17-2022 lidocaine urojet 2 % 11 mL t opical gel (XYLOCAINE, GLYDO) Start: 03-10-2022 End: 03-10-2022 lidocaine urojet 2 % 11 mL t opical gel (XYLOCAINE, GLYDO) Start: 03-03-2022 End: 03-03-2022 lidocaine urojet 2 % 11 mL t opical gel (XYLOCAINE, GLYDO) Start: 01-20-2022 End: 01-20-2022 lidocaine 2 % (XYLOCAINE) Start: 10-21-2021 End: 10-21-2021 lidocaine 2 % (XYLOCAINE) LORazepam 1 mg oral tablet (20 sources) Benzodiazepine Start: 12-28-2017 End: 04-11-2019 Start: 02-18-2016 take 1 tablet by savanna once daily ATIVAN 1 MG TABS One tablet by mouth daily every night LORAZEPAM [id number] Lydia Rice LPN Comment on above: OARRS 12/28/2017Dann er's magnesium hydroxide 160 mg/m l oral suspension (20 sources) take 30 mL by mouth once daily as needed Milk of Magnesia Oral Concentrate ; 30ml daily PRN Status: Inactive magnesium oxide 500 mg oral tablet (20 sources) metaxalone 800 mg oral table t (20 sources) Comment on above: Take 800 mg by mouth three times daily as needed. methylPREDNISolone (20 sources) Corticosteroid Start: 06-18-2013 End: 06-30-2014 Start: 06-18-2013 End: 06-30-2014 MEDROL (BETH), 4MG (Oral Tabl et) ; 1 (one) Tablet as directed on pack for 0 days Quantity: 1 {Package} Refills: 0 Ordered: 30-Jun-2014 LEDA Donaldson Elba Dennys Start: 18-Jun-2013 End: 30-Jun-2014 Status: Inactive 24 hr metoprolol succinate 1 00 mg extended release oral tablet (20 sources) beta-Adrenergic Dylan Start: 06-14-2017 End: 08-18-2017 Start: 06-14-2017 End: 08-18-2017 Comment on above: please do this inste ad of metoprolol tartrate metroNIDAZOLE 500 mg oral tablet (20 sources) Nitroimidazole Antimicrobial Start: 06-25-19 End: 07-02-19 [facility] (2 sources) Start: 02-17-20 16 take 1 tablet by mouth twice daily [facility] [id number] M TS TABS One tablet by mouth twice daily [facility] [id number] Lydia Giuliana Rice [employer] mometasone furoate 1 mg/ml topical cream (20 sources) Corticosteroid Start: 12-17-19 End: 10-08-19 23 Start: 12-17-2019 End: 10-07-2022 Mometasone Furoate 0.1 % Ext ernal Cream ; 1 (one) Application thin layer applied to affected area once daily for 0 days Quantity: 30 {Gram} Refills: 5 Ordered: 07-Oct-2022 MARTY Robertson Start: 17-Dec-2019 End: 07-Oct-2022 Status: Inactive oxyCODONE hydrochloride 5 mg oral tablet (1 source) Opioid Agonist Start: 10-18-2023 End: 10-18-2023 oxyCODONE IR 5 mg tab(s) (ROXICODONE) potassium 99 mg extended release oral tablet (2 sources) Start: 02-17-2016 take 1 tablet by mouth once daily GNP POTASSIUM 99 MG TABS One tablet by mouth daily POTASSIUM [id number] Lydia Giuliana Rice [employer] potassium citrate 10 meq extended release oral tablet (1 source) Start: 08-21-2018 potassium citr ate ER (UROCIT-K) 10 mEq (1,080 mg) TbER potassium gluconate 2.5 meq oral tablet (20 sources) Potassium Glucon ate Status: Inactive predniSONE 10 mg oral tablet (20 sources) Corticosteroid Start: 02-22-2016 End: 03-05-2016 PREDNISONE 10 MG TABS Take 4 tabs by mouth for 3 days, then 3 tabs by mouth for 3 days, then 2 tabs by mourth for 3 days, then 1 tab by mouth for 3 days. PREDNISONE [id number] Boby Conner Start: 05-14-2010 End: 07-28-2010 Start: 05-14-2010 End: 07-28-2010 PREDNISONE, 20MG (Oral Table t) ; taper Tablet antonette taperdose, see note for 0 days Quantity: 40 {Tablet} Refills: 0 Ordered: 28-Jul-2010 LEDA Keller Start: 14-May-2010 End: 28-Jul-2010 Status: Inactive Comments: 4tabs/dx2d, 3/dx3d, 2.5/dx3d, 2/dx3d, 1/dx2d, 1/2/dx3d Comment on above: 4tabs/dx2d, 3/dx3d, 2.5/dx3d, 2/dx3d, 1/dx2d, 1/2/dx3d sertraline 100 mg oral table t (20 sources) Serotonin Reuptake Inhibitor Start: 08-20-2020 End: 03-24-2021 Start: 08-20-2020 End: 03-24-2021 Sertraline HCl 100 MG Oral T ablet ; 1 1/2 (one and a half) Tablet daily for 0 days Quantity: 135 {Tablet} Refills: 3 Ordered: 24-Mar-2021 LEDA Castro Start: 20-Aug-2020 End: 24-Mar-2021 Status: Inactive Start: 02-18-2016 take 1 tablet by savanna th once daily ZOLOFT 50 MG TABS One tablet by mouth daily SERTRALINE HCL [id number] Lydia Rice LPN Start: 02-03-2016 sertraline (ZO LOFT) 25 mg tablet Take 150 mg by mouth once daily. 0 02/03/2016 Active Comment on above: Take 150 mg by mouth once daily. sulfamethoxazole 800 mg / trimethoprim 160 mg oral tablet (20 sources) Dihydrofolate Reductase Inhibitor Antibacterial, Sulfonamide Antimicrobial Start: 04-14-2010 End: 04-24-2010 Start: 04-14-2010 End: 04-24-2010 take 1 tablet by mouth twice daily BACTRIM DS, 800-160MG (Oral Tablet) ; 1 Tab two times daily for 10 days Quantity: 20 {Tab} Refills: 0 Ordered: 14-Apr-2010 MD Zackery Freed Start: 14-Apr-2010 End: 24-Apr-2010 Status: Inactive Support Compression Sock Mens (20 sources) Start: 07-14-2016 End: 08-18-2017 Support Compression Sock Mens Miscellaneous (14 sources) Start: 07-14-2016 End: 08-18-2017 Support Compression Sock Mens Miscellaneous ; 1 (one) Misc Misc 30-40 compression knee high stocking use as directed for 0 days Quantity: 1 {Package} Refills: 0 Ordered: 18-Aug-2017 MARTY Robertson Start: 14-Jul-2016 End: 18-Aug-2017 Status: Inactive Comments: Note: 30mm compression, knee-high stockings Comment on above: Note: 30mm compressi on, knee-high stockings terbinafine 250 mg oral tablet (20 sources) Allylamine Antifungal Start: 11-25-2016 End: 12-05-2016 tiZANidine 4 mg oral capsule (1 source) Central alpha-2 Adrenergic Agonist take 1 capsule by mouth three times daily tiZANidine HCl 4 mg capsule Take 4 mg by mouth three times daily. 0 Active Comment on above: Take 4 mg by mouth t hree times daily. topiramate 50 mg oral tablet (20 sources) traMADol hydrochloride 50 mg oral tablet (20 sources) Opioid Agonist Start: 07-08-2016 End: 11-25-2016 TRULICITY 3 mg/0.5 mL pen injector (20 sources) Start: 11-30-2021 End: 01-10-2024 TRULICITY 3 mg/0.5 mL pen injector Inject subcutaneously one time a week. 0 11/30/2021 01/10/2024 Discontinued Start: 06-21-2022 TRULICITY 3 mg /0.5 mL pen injector Inject subcutaneously one time a week. 0 11/30/2021 Suspended Start: 11-30-2021 TRULICITY 3 mg /0.5 mL pen injector Inject subcutaneously one time a week. 0 11/30/2021 Active Comment on above: Inject subcutaneousl y one time a week. Trulicity 3 MG/0.5ML Subcutaneous Solution Pen-injector (14 sources) Trulicity 3 MG/0.5ML Subcutaneous Solution Pen-injector ; 1 weekly (3 MG/0.5ML) Status: Inactive Comments: Endo Comment on above: Endo Trulicity 4.5 mg/0.5 mL subcutaneous pen injector (12 sources) Start: End: inject 0.5 mL by subcutaneous injection every week Trulicity 4.5 mg/0.5 mL subcutaneous pen injector ; 0.5 mL weekly for 0 days Quantity: 2 {Milliliter} Refills: 1 Ordered: 24-Oct-2023 MD Zechariah Astorga Start: 12-Sep-2023 End: 24-Oct-2023 Status: Inactive Start: 09-12-2023 inject 0.5 mL by sub cutaneous injection every week Trulicity 4.5 mg/0.5 mL subcutaneous pen injector ; 0.5 mL weekly for 0 days Quantity: 2 {Milliliter} Refills: 1 Ordered: 12-Sep-2023 COLLETTE Tomlinson Start: 12-Sep-2023 zolpidem tartrate 10 mg oral tablet (20 sources) gamma-Aminobutyric Acid-ergic Agonist Start: 02-18-2016 End: 12-21-2016 Comment on above: [facility] Problems Active Problems Problem Classification Problem Date Documented Da te Episodic/Chronic Abdominal hernia (20 sources) Hernia of anterior abdominal wall; Translations: [Ventral hernia without obstruction or gangrene] 03-29-2018 Episodic Abdominal pain (20 sources) Abdominal pain; Translations: [Unspecified abdominal pain] 11-17-2015 Episodic Acute bronchitis (20 sources) Acute bronchitis; Translations: [Acute bronchitis, unspecified] 08-08-2016 Episodic Allergic reactions (20 sources) Eczema; Translations: [Dermatitis, unspecified] 12-17-2019 Episodic Anxiety disorders (20 sources) Mixed anxiety and depressive disorder; Translations: [Anxiety disorder, unspecified] Onset: 7 02-14-2019 Chronic Asthma (20 sources) Asthma; Translations: [Unspecified asthma, uncomplicated] Onset: 1 04-05-2023 Chronic Comment on above: Dr. Astorga Pulmonolog y; [facility] HFA Cancer of bladder (20 sources) Malignant tumor of urinary bladder; Translations: [Malignant neoplasm of bladder, unspecified] Onset: 9 Chronic Comment on above: Urology Dr. Cruz Cardiac arrest and ventricular fibrillation (20 sources) Cardiorespiratory arrest; Translations: [Cardiac arrest, cause unspecified] Onset: 9 Resolved: 9 02-11-2016 Chronic Cardiac dysrhythmias (2 sources) Ventricular premature beats; Translations: [Ventricular premature depolarization] Onset: 5 07-14-2014 Chronic Cardiac dysrhythmias (20 sources) Palpitations; Translations: [Tachycardia, unspecified] Onset: 5 07-14-2014 Episodic Chronic obstructive pulmonary disease and bronchiectasis (1 source) Chronic obstructive lung disease; Translations: [Chronic obstructive pulmonary disease, unspecified] Chronic Conditions associated with dizziness or vertigo (20 sources) Dizziness; Translations: [Dizziness and giddiness] 08-18-2017 Episodic Diabetes mellitus with complications (20 sources) Neuropathy due to diabetes mellitus; Translations: [Type 2 diabetes mellitus with diabetic neuropathy, unspecified] Onset: 9 02-14-2019 Chronic Diabetes mellitus without complication (20 sources) Type 2 diabetes mellitus; Translations: [Type 2 diabetes mellitus without complications] Onset: 9 09-18-2018 Chronic Comment on above: Trulicity 3mg/0.5mL [id number] = 5.9% Trulicity 3mg/0.5mL [id number] = 6.3% Trulicity 4.5mg/0.5m L [id number] = 9.5% Diverticulosis and diverticulitis (20 sources) Diverticulitis; Translations: [Diverticulitis of intestine, part unspecified, without perforation or abscess without bleeding] 06-28-2019 Chronic Esophageal disorders (20 sources) Gastroesophageal reflux disease; Translations: [Gastroesophageal reflux disease without esophagitis] Onset: 5 07-14-2014 Chronic Comment on above: omeprazole 20 bid Essential hypertension (20 sources) Hypertensive disorder; Translations: [Essential (primary) hypertension] Onset: 5 07-14-2014 Chronic Comment on above: Losartan 50 mg daily , Atenolol 50mg BID Fracture of lower limb (20 sources) Fracture of femur; Translations: [Unspecified fracture of right femur, initial encounter for closed fracture] 10-03-2017 Episodic Gastrointestinal hemorrhage (20 sources) Rectal hemorrhage; Translations: [Hemorrhage of anus and rectum] 02-05-2019 Episodic Genitourinary symptoms and ill-defined conditions (20 sources) Bubba hematuria; Translations: [Gross hematuria] Onset: 4 Episodic Headache; including migraine (20 sources) Headache; Translations: [Headache] 08-18-2017 Episodic Heart valve disorders (20 sources) Tricuspid valve regurgitation; Translations: [Rheumatic tricuspid insufficiency] Onset: 9 09-18-2018 Chronic Hemorrhoids (20 sources) Bleeding hemorrhoids; Translations: [Unspecified hemorrhoids] 04-05-2023 Episodic Immunizations and screening for infectious disease (20 sources) Other and unspecified nonspecific immunological findings; Translations: [Needs influenza immunization] Onset: 0 08-08-2016 Episodic Malaise and fatigue (20 sources) Fatigue; Translations: [Other fatigue] 11-07-2018 Episodic Mood disorders (20 sources) Major depression, single episode; Translations: [Major depressive disorder, single episode, unspecified] Onset: 7 09-18-2018 Chronic Comment on above: Fluoxetine 30 mg jacqueline ly Mycoses (20 sources) Candidiasis; Translations: [Candidiasis, unspecified] 08-18-2017 Episodic Noninfectious gastroenteritis (20 sources) Non-specific colitis; Translations: [Noninfective gastroenteritis and colitis, unspecified] 11-17-2015 Episodic Nonspecific chest pain (20 sources) Chest discomfort; Translations: [Chest pain] Onset: 5 07-14-2014 Episodic Osteoarthritis (20 sources) Arthritis of shoulder region joint; Translations: [Arthropathy, unspecified, shoulder region] Onset: 3 Chronic Other aftercare (20 sources) Long-term current use of insulin; Translations: [alf (current) use of insulin] 09-22-2020 Episodic Other and ill-defined heart disease (20 sources) Cardiomegaly; Translations: [Cardiomegaly] Onset: 9 09-18-2018 Chronic Other connective tissue disease (3 sources) Pain in right leg; Translations: [Pain in right leg] Onset: 2 Episodic Other connective tissue disease (12 sources) Impingement syndrome of shoulder region; Translations: [Other affections of shoulder region, not elsewhere classified] Episodic Other connective tissue disease (13 sources) Synovitis/tenosynoviti s - shoulder; Translations: [Disorders of bursae and tendons in shoulder region, unspecified] Onset: 3 Episodic Other connective tissue disease (2 sources) Other synovitis and tenosynovitis, right shoulder; Translations: [Other synovitis and tenosynovitis, right shoulder] Onset: 3 Episodic Other connective tissue disease (3 sources) Impingement syndrome of left shoulder; Translations: [Impingement syndrome of left shoulder] Onset: 3 Episodic Other connective tissue disease (20 sources) Pain in bilateral legs; Translations: [Pain in right leg] 04-05-2023 Episodic Other connective tissue disease (20 sources) Metatarsalgia of right foot; Translations: [Metatarsalgia, right foot] 04-05-2023 Episodic Other connective tissue disease (20 sources) Tendinosis; Translations: [Other specified disorders of synovium and tendon, unspecified shoulder] 04-05-2023 Episodic Other connective tissue disease (20 sources) Peroneal tendinitis of right lower limb; Translations: [Peroneal tendinitis, right leg] 08-01-2019 Episodic Other connective tissue disease (20 sources) Pain in lower limb; Translations: [Pain in leg, unspecified] 07-08-2016 Episodic Other connective tissue disease (20 sources) Neuralgia; Translations: [Neuralgia and neuritis, unspecified] 02-11-2016 Episodic Other connective tissue disease (20 sources) Metatarsalgia; Translations: [Metatarsalgia, unspecified foot] 07-28-2010 Episodic Other connective tissue disease (20 sources) Bursitis of hip; Translations: [Trochanteric bursitis, unspecified hip] 05-14-2010 Episodic Other connective tissue disease (20 sources) Spasm of muscle 03-29-2010 Episodic Other diseases of bladder and urethra (1 source) Mass of urinary bladder; Translations: [Other specified disorders of bladder] 10-18-2023 Chronic Other diseases of bladder and urethra (1 source) Other specified disorders of bladder; Translations: [Bladder mass] Onset: 4 Chronic Other inflammatory condition of skin (20 sources) Psoriasis; Translations: [Psoriasis, unspecified] 04-05-2023 Chronic Other inflammatory condition of skin (20 sources) Lichen planus; Translations: [Lichen planus, unspecified] 11-28-2023 Episodic Other injuries and conditions due to external causes (20 sources) Injury of right foot; Translations: [Unspecified injury of right foot, sequela] 03-24-2021 Episodic Other liver diseases (20 sources) Other chronic nonalcoholic liver disease 07-01-2014 Chronic Other lower respiratory disease (20 sources) Dyspnea on exertion; Translations: [Other forms of dyspnea] 04-05-2023 Episodic Other lower respiratory disease (20 sources) Hypoxia; Translations: [Hypoxemia] 08-18-2017 Episodic Other lower respiratory disease (15 sources) Wheezing; Translations: [Wheezing] 01-24-2024 Episodic Other nervous system disorders (3 sources) Other chronic pain; Translations: [Other chronic pain] Onset: 3 Chronic Other non-traumatic joint disorders (20 sources) Polyarthropathy; Translations: [Polyarthritis, unspecified] 04-05-2023 Chronic Other non-traumatic joint disorders (1 source) Pain in joint, site unspecified; Translations: [JOINT PAIN-SITE NOS] Onset: 0 Episodic Other non-traumatic joint disorders (20 sources) Hip pain; Translations: [Pain in joint, pelvic region and thigh] 04-12-2011 Episodic Other non-traumatic joint disorders (16 sources) Chronic pain of left upper limb; Translations: [Pain in joint, shoulder region] Episodic Other non-traumatic joint disorders (16 sources) Chronic pain of right upper limb; Translations: [Pain in joint, shoulder region] Episodic Other non-traumatic joint disorders (20 sources) Pain in right shoulder; Translations: [Pain in joint, shoulder region] Onset: 3 Episodic Other non-traumatic joint disorders (3 sources) Pain in left shoulder; Translations: [Pain in left shoulder] Onset: 3 Episodic Other nutritional; endocrine; and metabolic disorders (20 sources) Obesity; Translations: [Obesity, unspecified] Onset: 5 07-14-2014 Chronic Other nutritional; endocrine; and metabolic disorders (20 sources) Morbid obesity; Translations: [Morbid (severe) obesity due to excess calories] Onset: 9 09-18-2018 Chronic Other nutritional; endocrine; and metabolic disorders (20 sources) Body mass index 40+ - severely obese; Translations: [Morbid (severe) obesity due to excess calories] Onset: 2 02-10-2022 Chronic Other nutritional; endocrine; and metabolic disorders (1 source) Morbid (severe) obesity due to excess calories; Translations: [Obesity, Class III, BMI 40-49.9 (morbid obesity) (HCC)] Onset: 2 Chronic Other screening for suspected conditions (not mental disorders or infectious disease) (20 sources) Patient encounter status; Translations: [Encounter for screening for lipoid disorders] 10-07-2022 Episodic Other skin disorders (20 sources) Nodule of subcutaneous tissue of back; Translations: [Localized swelling, mass and lump, trunk] 02-13-2020 Episodic Other upper respiratory infections (15 sources) Sinusitis; Translations: [Chronic sinusitis, unspecified] 01-24-2024 Chronic Other upper respiratory infections (20 sources) Sore throat symptom; Translations: [Acute pharyngitis, unspecified] 11-19-2015 Episodic Otitis media and related conditions (20 sources) Acute suppurative otitis media; Translations: [Acute suppurative otitis media without spontaneous rupture of ear drum, unspecified ear] 04-14-2010 Episodic Pulmonary heart disease (20 sources) Pulmonary hypertension; Translations: [Secondary pulmonary hypertension] Onset: 6 03-16-2016 Chronic Pulmonary heart disease (20 sources) Pulmonary embolism; Translations: [Other pulmonary embolism without acute cor pulmonale] Onset: 6 03-16-2016 Episodic Comment on above: Xarelto 20 mg daily Residual codes; unclassified (20 sources) Sleep apnea; Translations: [Sleep apnea, unspecified] Onset: 9 02-14-2019 Chronic Residual codes; unclassified (1 source) Sleep apnea, unspecified; Translations: [Sleep apnea, unspecified type] Onset: 9 Chronic Residual codes; unclassified (20 sources) Intolerant of heat; Translations: [Other general symptoms and signs] 04-05-2023 Episodic Residual codes; unclassified (20 sources) Insomnia; Translations: [Insomnia, unspecified] 04-05-2023 Episodic Comment on above: NO sleep meds Residual codes; unclassified (20 sources) Edema of foot; Translations: [Localized edema] 08-09-2018 Episodic Residual codes; unclassified (20 sources) Tobacco user; Translations: [Tobacco use] 01-09-2018 Episodic Residual codes; unclassified (20 sources) Reduced libido; Translations: [Decreased libido] 11-17-2014 Episodic Screening or history of mental health and substance abuse (20 sources) Tobacco dependence in remission; Translations: [Tobacco dependence syndrome] Onset: 5 03-16-2016 Chronic Spondylosis; intervertebral disc disorders; other back problems (20 sources) Other intervertebral disc degeneration, lumbar region; Translations: [Degeneration of lumbar intervertebral disc] Onset: 3 Chronic Spondylosis; intervertebral disc disorders; other back problems (20 sources) Lumbosacral radiculopathy; Translations: [Radiculopathy, lumbosacral region] Onset: 7 09-18-2018 Episodic Sprains and strains (20 sources) Strain of muscle(s) and tendon(s) of the rotator cuff of left shoulder, subsequent encounter; Translations: [Strain of tendon of left rotator cuff, subsequent encounter] Onset: 3 04-05-2023 Episodic Unclassified (20 sources) Obstructive sleep apnea syndrome; Translations: [Obstructive sleep apnea (adult) (pediatric)] Onset: 6 02-18-2016 Chronic Unclassified (1 source) Low back pain, unspecified; Translations: [Low back pain, unspecified] Onset: 3 Unclassified (2 sources) PT Re-Eval Onset: 3 Unclassified (14 sources) Follow up for multiple chronic conditions - The patient is here for follow-up of asthma, diabetes, GERD and hypertension. The patient always takes the prescribed medications. No side effects noted. The patient has low activity level and no regular exercise program. The patient's glucose levels are monitored on rare occasion, out of office blood pressure checks occur rarely and dietary compliance is fair often eating foods not normally recommended. The patient states that there is no recent angina or dyspnea, weight has increased (up 1lbs) and headaches have been noticed occasionally (Pt said they are stress headaches). 04-05-2023 Unclassified (11 sources) Consult - Patient is here today to discuss having MRI ordered for his bilateral shoulder pain. He was last seen on 10/07/2022 and patient was referred to physical therapy for the shoulder pain. Patient did physical therapy visits twice weekly for 4 weeks. Very little improvement noticed with the shoulder pain. He continues to have trouble sleeping due to the shoulder pain. 11-11-2022 Unclassified (11 sources) [ADDITIONAL REASON] Foot pain - The pain is in the right foot and is located in the forefoot. The onset of the foot pain was acute (no injury that patient is aware of, patient wonders if a pair of tennis shoes is causing his foot pain) and has been occurring in a persistent pattern for 3 days. The course has been without change. The pain is severe. The pain is characterized as sharp with weight-bearing. The pain is aggravated by physical activity and any movement (walking,). The pain has been relieved by nothing (no OTC pain meds taken). There have been no previous surgeries. Note for Foot pain : He has some swelling on the front bottom part of his foot. 11-11-2022 Unclassified (14 sources) Follow up for multiple chronic conditions - The patient is here for follow-up of anxiety, depression, diabetes, hypertension, insomnia and obesity. The patient always takes the prescribed medications. No side effects noted. The patient has a sedentary lifestyle. The patient states that there is no recent angina or dyspnea and there are no vision changes or weakness. Note for Multiple chronic conditions follow-up : needs you to start prescribing Trulicity medicare won't cover him seeing endocrine 04-08-2022 Unclassified (14 sources) Follow up for multiple chronic conditions - The patient is here for follow-up of anxiety, arthritis, asthma, depression, diabetes, GERD, hypertension, insomnia, obesity and other condition(s) (h/o PE, bladder cancer). The patient always takes the prescribed medications. No side effects noted. The patient has low activity level and no regular exercise program. The patient's glucose levels are monitored on rare occasion, out of office blood pressure checks occur rarely (does not) and dietary compliance is fairly good usually adhering to recommendations. The patient states that breathing effort is more difficult (always has chest pain and SOB-- he is a smoker), there are no vision changes or weakness, weight has decreased (down 8 lbs), in general mood has improved (little better-- thinks he may need a dose increase RJB started him on this 01/2021) and headaches are rarely noted. 03/15/21. Note for Multiple chronic conditions follow-up : pt seen endo 03/15/2021 a1c 6.1 03-24-2021 Unclassified (14 sources) [ADDITIONAL REASON] Transition into care - The patient is transitioning into care from another physician (daquan hartman 03/15/21) and a summary of care was reviewed. 03-24-2021 Unclassified (14 sources) [facility] Routine follow-up - The patient is here for follow-up of hypertension, diabetes, obesity, depression, GERD, asthma, anxiety, insomnia and bladder cancer. The patient usually takes the prescribed medications. No side effects noted. The patient has low activity level and no regular program. The patient's out of office blood pressure checks occur rarely (never) and dietary compliance is fair often eating foods not normally recommended (pt said he pt has been eating veggies but not staying away from carbs too good also eating lots of fried foods). The patient states that breathing effort is more difficult (sob and chest pain only when walking), weight has decreased (down 2 lbs), mood is unchanged (pt said I don't know, kind of BLEH ) and headaches are rarely noted. The patient tests blood sugar monthly (pt said randomly 170-180). Note for Routine chronic follow-up : [facility] 04/09/20last labs 04/09/20 a1c 6.6, bmp ,lipidpt is to see endocrinology-- 10/05/2020-- so pt did not want me to get an a1c on him todaypt has this spot on his lip thats been there for 6 months-- occasionally hurts- it drives hm nutspt also has a rash on his left arm, and all over his left leg 09-22-2020 Unclassified (14 sources) Follow Up for Multiple Chronic Conditions - The patient is here for follow-up of anxiety, arthritis, asthma, depression, diabetes, GERD, hypertension, insomnia and obesity. The patient always takes the prescribed medications. No side effects noted. The patient has low activity level and no regular exercise program. The patient's glucose levels are monitored several time(s) a month (checks about once a month), out of office blood pressure checks occur rarely and dietary compliance is fair often eating foods not normally recommended. The patient states that there is no recent angina or dyspnea, there are no vision changes or weakness (does become short of breath with exertion), weight has increased (7lbs) and headaches have been noticed occasionally. Note for Multiple chronic conditions follow-up : [facility] 02/13/2020.rtn 01/20/2020CMP 06/2019Lipid A1C 5.6%Does not have upcoming appt with Dr. 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 04-09-2020 Unclassified (14 sources) Follow Up for Multiple Chronic Conditions - The patient is here for follow-up of anxiety, arthritis, asthma, depression, diabetes (followed by endocrinology), GERD, hypertension, insomnia and obesity. The patient always takes the prescribed medications. No side effects noted (needs refill). The patient has an active lifestyle but no regular exercise program. The patient's glucose levels are monitored daily (two to three times a day) and out of office blood pressure checks occur rarely. The patient states that there is no recent angina or dyspnea, there are no vision changes or weakness, weight has increased (up 7 pounds) and headaches are rarely noted. Note for Multiple chronic conditions follow-up : Last routine office visit 10/2019. 01-20-2020 Unclassified (14 sources) Follow up for multiple chronic conditions - The patient is here for follow-up of arthritis, depression, diabetes, GERD, hypertension and obesity. The patient always takes the prescribed medications. No side effects noted. The patient has an active lifestyle but no regular exercise program. The patient's glucose levels are monitored several time(s) per week and dietary compliance is fair often eating foods not normally recommended (Pt was doing really well with his diet but the last several weeks with having to stay home he has not been doing very well). The patient states that weight has decreased. Note for Multiple chronic conditions follow-up : [facility] 08/01/19, Pt was not ablle to give specimen for urine P:C 10-18-2019 Unclassified (14 sources) Follow up for multiple chronic conditions - The patient is here for follow-up of arthritis, depression, diabetes, hypertension and obesity. The patient always takes the prescribed medications. No side effects noted. The patient has low activity level and no regular exercise program. The patient's glucose levels are monitored several time(s) per day and dietary compliance is good with close adherance to recommendations. The patient states that weight has decreased. The patient states that the disease has moderate physical impact. Note for Multiple chronic conditions follow-up : [facility] 06/25/19, BMP 09/20/18. Pt needs a note from you stating pt can not work, also wants tested for RA, is having pain in his arms and hands. 07-20-2019 Unclassified (12 sources) [facility] Routine follow-up - The patient is here for follow-up of hypertension, diabetes, obesity, depression and anxiety. The patient usually takes the prescribed medications. No side effects noted. The patient has an active lifestyle but no regular program (states he has been doing firewood recently). The patient's out of office blood pressure checks occur rarely and dietary compliance is poor and they admit to eating without regard of guidelines. The patient states that there is no recent angina or dyspnea (becomes short of breath with increased activity), weight has decreased (3 lbs since [facility]) and headaches are noted often but not on daily basis (in the evenings). Note for Routine chronic follow-up : [facility] 02/05/2019.Last BMP 09/20/2018. Lipid 08/27/2018 at [facility].A1C today. 04-11-2019 Unclassified (12 sources) [ADDITIONAL REASON] Transition into care - The patient is transitioning into care from another physician (Cardiology Dr. Angela 04/08/2019.Dr. Anthony PERRY 04/04/2019.General Surgeon 02/07/2019.[facility] 03/18/2019 for right side lumbar ablation.) and a summary of care was reviewed. 04-11-2019 Unclassified (12 sources) [facility] Routine follow-up - The patient is here for follow-up of hypertension, diabetes, obesity, depression, GERD, asthma and anxiety. The patient always takes the prescribed medications. No side effects noted. The patient has an active lifestyle but no regular program. The patient's out of office blood pressure checks occur rarely and dietary compliance is good with close adherance to recommendations. The patient states that there is no recent angina or dyspnea, there are no vision changes or weakness, weight has decreased (15#) and they do not have headaches. The patient tests blood sugar daily (90-130). Note for Routine chronic follow-up : [facility] 08/09/2018bmp 09/20/2018, lipid 08/27/2018, a1c 08/09/2018 6.8recently found out had bladder cancer.said this has been affecting moods. asking if med for depression/change meds.has been strict keto diet 11-08-2018 Unclassified (12 sources) [ADDITIONAL REASON] Transition into care - The patient is transitioning into care from another physician (urology) and a summary of care was reviewed. 11-08-2018 Unclassified (14 sources) [facility] Routine Follow up - The patient is here for follow-up of hypertension, diabetes, obesity, depression, GERD, anxiety and insomnia. The patient always takes the prescribed medications. No side effects noted. (needs refills today) The patient has low activity level and no regular program. The patient's out of office blood pressure checks occur rarely and dietary compliance is fair often eating foods not normally recommended. The patient states that there are no vision changes or weakness (last eye exam 01/2018) and they do not have headaches. The patient tests blood sugar monthly (few times a month). Note for Routine chronic follow-up : [facility] 03/29/2018. Last Lipid 06/27/14. Last CBC and CMP done 08/09/2017 at hospital.States that he has been chest pain that is located on the left side. States that he becomes short of breath with exertion.Been noticing blood in his urine occasionally, wanted to have urine checked today. 08-09-2018 Unclassified (14 sources) [facility] Routine Follow up - The patient is here for follow-up of hypertension, diabetes, obesity, depression, GERD, anxiety and insomnia. The patient always takes the prescribed medications. No side effects noted. The patient has low activity level and no regular program. The patient's out of office blood pressure checks occur rarely and dietary compliance is fair often eating foods not normally recommended. The patient states that there is no recent angina or dyspnea, there are no vision changes or weakness, weight has increased (12 pounds) and they do not have headaches. The patient tests blood sugar weekly. Note for Routine chronic follow-up : [facility] 11/09/17. Last CMP and CBC 11/17/15. Last Lipid 06/27/14. 01-09-2018 Unclassified (14 sources) [facility] Routine Follow up - The patient is here for follow-up of hypertension, diabetes, obesity, depression, GERD, anxiety and insomnia. The patient always takes the prescribed medications. No side effects noted. The patient engages in regular program 1-3 time(s) per week (physical therapy). The patient's out of office blood pressure checks occur rarely and dietary compliance is fairly good usually adhering to recommendations. The patient states that there is no recent angina or dyspnea, there are no vision changes or weakness, weight has decreased (13 pounds) and they do not have headaches. The patient tests blood sugar daily. Note for Routine chronic follow-up : [facility] 09/25/17. Last labs 06/2017 at [facility]. 11-09-2017 Unclassified (14 sources) Follow up consultation - The patient is here to follow-up after hospitalization (right femur fracutre) on : (08-23-17 to 09-10-17 and then was in rehab). Note for Consultation follow-up : is to be non weight bearing for 4 more weeks. 09-25-2017 Unclassified (9 sources) Follow up from hospital stay - Name of Hospital: [facility]. Date of Admission: 08/07/2017. Date of Discharge: 08/09/2017. The patient was hospitalized for New onset Diabetes Mellitus Type 2, Acute infectious hemorrhagic cystitis, acute hypoxia. New medications include Levemir, Metformin (Albuterol inhaler). Patient did not have any consultations ordered while in the hospital. Patient was discharged to home. Note for Follow up from hospital stay : Was taking his blood sugar prior to going to hospital, readings were in the 300's. Brought a list of readings today.Was taking Topamax, patient questioning if he should continue taking this medication or not. Was reading that this medication should not be taken while taking Metformin.Would like to have his prostate and lungs checked. Was passing blood clots for about 2 weeks prior to going to hospital. With urinating, will have pain with final push , the pain will be of suprapubic area down to tip of penis. Feels like pressure from the abdomen area to the anus, is like you have to take a bowel movement but you already have . Is having bad muscle cramps everywhere but mostly of the abdomen area. Will hurt for days afterwards. 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 08-18-2017 Unclassified (9 sources) [ADDITIONAL REASON] Transition into care - The patient is transitioning into care from a hospital ([facility] 08/07/2017 to 08/09/2017) and a summary of care was reviewed. 08-18-2017 Unclassified (14 sources) Preoperative Clearance - Surgical procedure(s) planned: other (left calceneal osteotomy x2, left fdl tendon transfer, left 1st, 2nd, 3rd, TMT joint fusion). Date of procedure: (08/23/16) Surgeon: (Dr. Daryl Romero) and Location of procedure: ([facility]) Previous problems include none (However, patient did code during previous surgery due to PE.). Prosthetics include eye glasses. 08-08-2016 Unclassified (14 sources) follow up - Patient was seen on 02/10/16 for a follow up pulmonary embolism. Patient is here today to follow up. Patient has questions today. He is wanting to know when he will be able to return to work. He is concerned that he will lose his job if he does not return soon. Patient had PFT's done last week and was told he needed to be on oxygen. Patient was started on o2 at home 2L/min. Patient's pulse ox today was 94% while on 2L/min of o2 via nasal canula. 03-08-2016 Unclassified (14 sources) Follow up consultation - The patient is here to follow-up after hospitalization on : (01-28 to 01-31). Note for Consultation follow-up : Pt went in to have out patient left knee surgery and he had multiple Pe's and was admitted to the hospital. Pt is home bound, he is doing PT and home health nurse in the home. Pt would like to have temporary disability. 02-11-2016 Unclassified (14 sources) [facility] Routine Follow up - The patient is here for follow-up of hypertension (Last rtn visit 07/24/15. Last labs 06/2014. ), obesity, GERD and NAFLD. The patient always takes the prescribed medications. No side effects noted. The patient has a sedentary lifestyle. The patient's out of office blood pressure checks occur rarely and dietary compliance is fairly good usually adhering to recommendations. The patient states that breathing effort is more difficult (occasionally), there is no recent angina or dyspnea, there are no vision changes or weakness, weight has decreased (7#), depression has worsened, they are still having trouble sleeping and they do not have headaches. Note for Routine chronic follow-up : Patient complains of heart palpitations. They occur most often after he is done working, while driving or lying down. 10-30-2015 Unclassified (6 sources) Follow up consultation - The patient is here to follow-up after an Orthopedic consult (Right total hip replacement by Dr. Rodriguez.) on : (03/24/2015). 07-24-2015 Unclassified (6 sources) [ADDITIONAL REASON] [facility] Routine Follow up - The patient is here for follow-up of hypertension (Last rtn visit 11/14/14. Lipid and BMP 06/27/14. ), obesity, GERD and NAFLD. The patient always takes the prescribed medications. No side effects noted. The patient has low activity level and no regular program. The patient's out of office blood pressure checks occur occasionally and dietary compliance is fairly good usually adhering to recommendations. The patient states that breathing effort is stable, there are no vision changes or weakness, weight has decreased (3#), mood is unchanged and headaches have been noticed occasionally. Note for Routine chronic follow-up : Patient complains of left sided chest pain that radiates into his left upper abdomen. Pain is described as sharp and intermittent. Patient also complains of intense burning pain on his outer thighs that wakes him up at night. Patient has continued numbness in his perineal area to radiates into his groin. Lastly, patient has a lump that is getting larger on the inside of his right wrist. 07-24-2015 Unclassified (14 sources) [facility] Routine Follow up - The patient is here for follow-up of hypertension (Last visit 08/16/11. Lipid and ALT 08/06/11. BMP 08/22/11 @ [facility].). The patient always takes the prescribed medications. No side effects noted. The patient has low activity level and no regular program. The patient's out of office blood pressure checks occur rarely and dietary compliance is fair often eating foods not normally recommended (Patient reports he has had to get food from [employer] and what they hand out isn't the most healthy options.). The patient states that breathing effort is stable, there is no recent angina or dyspnea, there are no vision changes or weakness, weight has increased (30#), mood is unchanged, they are still having trouble sleeping and they do not have headaches. The patient does not check home blood sugars. Note for Routine chronic follow-up : Patient complains of bilateral leg pain with significant swelling. 09-05-2012 Unclassified (14 sources) Follow Up for Multiple Chronic Conditions - The patient is here for follow-up of hypertension and other condition(s) (asthma). The patient always takes the prescribed medications. No side effects noted. The patient has low activity level and no regular exercise program. The patient's out of office blood pressure checks occur occasionally. Note for Follow Up for Multiple Chronic Conditions : pt lost rx for cardizem and never started taking med 08-17-2011 Unclassified (14 sources) Follow up for multiple chronic conditions - The patient is here for follow-up of hypertension, obesity and other condition(s) (back pain). The patient usually takes the prescribed medications. No side effects noted. The patient has a sedentary lifestyle. 07-28-2010 Unclassified (9 sources) Follow up for multiple chronic conditions - The patient is here for follow-up of hypertension. The patient always takes the prescribed medications. No side effects noted. The patient has an active lifestyle but no regular program. The patient's out of office blood pressure checks occur frequently (has been checking readings daily for past 3 wks). 04-14-2010 Unclassified (9 sources) [ADDITIONAL REASON] Ear pain - The pain has been occurring for 1 week. The pain is described as a moderate dull aching, pressure and plugged. The pain is described as being located in the inner ear. The pain is felt in the right ear. 04-14-2010 Unclassified (2 sources) Transition into care - The patient is transitioning into care from another physician (urology) and a summary of care was reviewed. 11-08-2018 Unclassified (2 sources) [ADDITIONAL REASON] [facility] Routine follow-up - The patient is here for follow-up of hypertension, diabetes, obesity, depression, GERD, asthma and anxiety. The patient always takes the prescribed medications. No side effects noted. The patient has an active lifestyle but no regular program. The patient's out of office blood pressure checks occur rarely and dietary compliance is good with close adherance to recommendations. The patient states that there is no recent angina or dyspnea, there are no vision changes or weakness, weight has decreased (15#) and they do not have headaches. The patient tests blood sugar daily (90-130). Note for Routine chronic follow-up : CAMERON 08/09/2018bmp 09/20/2018, lipid 08/27/2018, a1c 08/09/2018 6.8recently found out had bladder cancer.said this has been affecting moods. asking if med for depression/change meds.has been strict keto diet 11-08-2018 Unclassified (8 sources) [facility] Routine Follow up - The patient is here for follow-up of hypertension (Last rtn visit 11/14/14. Lipid and BMP 06/27/14. ), obesity, GERD and NAFLD. The patient always takes the prescribed medications. No side effects noted. The patient has low activity level and no regular program. The patient's out of office blood pressure checks occur occasionally and dietary compliance is fairly good usually adhering to recommendations. The patient states that breathing effort is stable, there are no vision changes or weakness, weight has decreased (3#), mood is unchanged and headaches have been noticed occasionally. Note for Routine chronic follow-up : Patient complains of left sided chest pain that radiates into his left upper abdomen. Pain is described as sharp and intermittent. Patient also complains of intense burning pain on his outer thighs that wakes him up at night. Patient has continued numbness in his perineal area to radiates into his groin. Lastly, patient has a lump that is getting larger on the inside of his right wrist. 07-24-2015 Unclassified (8 sources) [ADDITIONAL REASON] Follow up consultation - The patient is here to follow-up after an Orthopedic consult (Right total hip replacement by Dr. Rodriguez.) on : (03/24/2015). 07-24-2015 Unclassified (5 sources) Ear pain - The pain has been occurring for 1 week. The pain is described as a moderate dull aching, pressure and plugged. The pain is described as being located in the inner ear. The pain is felt in the right ear. 04-14-2010 Unclassified (5 sources) [ADDITIONAL REASON] Follow up for multiple chronic conditions - The patient is here for follow-up of hypertension. The patient always takes the prescribed medications. No side effects noted. The patient has an active lifestyle but no regular program. The patient's out of office blood pressure checks occur frequently (has been checking readings daily for past 3 wks). 04-14-2010 Unclassified (3 sources) Foot pain - The pain is in the right foot and is located in the forefoot. The onset of the foot pain was acute (no injury that patient is aware of, patient wonders if a pair of tennis shoes is causing his foot pain) and has been occurring in a persistent pattern for 3 days. The course has been without change. The pain is severe. The pain is characterized as sharp with weight-bearing. The pain is aggravated by physical activity and any movement (walking,). The pain has been relieved by nothing (no OTC pain meds taken). There have been no previous surgeries. Note for Foot pain : He has some swelling on the front bottom part of his foot. 11-11-2022 Unclassified (3 sources) [ADDITIONAL REASON] Consult - Patient is here today to discuss having MRI ordered for his bilateral shoulder pain. He was last seen on 10/07/2022 and patient was referred to physical therapy for the shoulder pain. Patient did physical therapy visits twice weekly for 4 weeks. Very little improvement noticed with the shoulder pain. He continues to have trouble sleeping due to the shoulder pain. 11-11-2022 Unclassified (5 sources) Transition into care - The patient is transitioning into care from a hospital ([facility] 08/07/2017 to 08/09/2017) and a summary of care was reviewed. 08-18-2017 Unclassified (5 sources) [ADDITIONAL REASON] Follow up from hospital stay - Name of Hospital: [facility]. Date of Admission: 08/07/2017. Date of Discharge: 08/09/2017. The patient was hospitalized for New onset Diabetes Mellitus Type 2, Acute infectious hemorrhagic cystitis, acute hypoxia. New medications include Levemir, Metformin (Albuterol inhaler). Patient did not have any consultations ordered while in the hospital. Patient was discharged to home. Note for Follow up from hospital stay : Was taking his blood sugar prior to going to hospital, readings were in the 300's. Brought a list of readings today.Was taking Topamax, patient questioning if he should continue taking this medication or not. Was reading that this medication should not be taken while taking Metformin.Would like to have his prostate and lungs checked. Was passing blood clots for about 2 weeks prior to going to hospital. With urinating, will have pain with final push , the pain will be of suprapubic area down to tip of penis. Feels like pressure from the abdomen area to the anus, is like you have to take a bowel movement but you already have . Is having bad muscle cramps everywhere but mostly of the abdomen area. Will hurt for days afterwards. 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 08-18-2017 Unclassified (2 sources) Transition into care - The patient is transitioning into care from another physician (Cardiology Dr. Angela 04/08/2019.Dr. Anthony PERRY 04/04/2019.General Surgeon 02/07/2019.[facility] 03/18/2019 for right side lumbar ablation.) and a summary of care was reviewed. 04-11-2019 Unclassified (2 sources) [ADDITIONAL REASON] [facility] Routine follow-up - The patient is here for follow-up of hypertension, diabetes, obesity, depression and anxiety. The patient usually takes the prescribed medications. No side effects noted. The patient has an active lifestyle but no regular program (states he has been doing firewood recently). The patient's out of office blood pressure checks occur rarely and dietary compliance is poor and they admit to eating without regard of guidelines. The patient states that there is no recent angina or dyspnea (becomes short of breath with increased activity), weight has decreased (3 lbs since CAMERON) and headaches are noted often but not on daily basis (in the evenings). Note for Routine chronic follow-up : CAMERON 02/05/2019.Last BMP 09/20/2018. Lipid 08/27/2018 at [facility].A1C today. 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] Onset: 01-30-2017 Resolved: 02-14-2019 02-14-2019 Episodic Other aftercare (1 source) meterman (current) use of insulin; Translations: [Type 2 diabetes mellitus without complication, with long-term current use of insulin (HCC)] Onset: 09-18-2018 Episodic Other circulatory disease (2 sources) Abnormal result of cardiovascular function study, unspecified; Translations: [Abnormal result of cardiovascular function study, unspecified] Onset: 07-14-2014 07-14-2014 Episodic Other lower respiratory disease (20 sources) Dyspnea; Translations: [Restrictive lung disease] Onset: 02-18-2016 02-18-2016 Episodic Other lower respiratory disease (10 sources) H/O: respiratory disease; Translations: [Personal history of other diseases of the respiratory system] Onset: 01-29-2016 Resolved: 02-14-2019 02-14-2019 Episodic Other lower respiratory disease (10 sources) Restrictive lung disease; Translations: [Other disorders of lung] Onset: 09-18-2018 Resolved: 02-14-2019 02-14-2019 Episodic Phlebitis; thrombophlebitis and thromboembolism (20 sources) Deep venous thrombosis; Translations: [Acute embolism and thrombosis of unspecified deep veins of unspecified lower extremity] Onset: 09-12-2018 09-18-2018 Episodic Residual codes; unclassified (20 sources) Bilateral lower limb edema; Translations: [Localized edema] Onset: 09-18-2018 09-18-2018 Episodic Retinal detachments; defects; vascular occlusion; and retinopathy (20 sources) Multiple defects of retina without detachment; Translations: [Multiple defects of retina without detachment, unspecified eye] Onset: 01-01-2015 01-01-2015 Episodic Unclassified (4 sources) Family history of sudden ; Translations: [Other specified postprocedural states] Onset: 07-14-2014 07-14-2014 Episodic Unclassified (1 source) NONSP IMMUN FIND NECANDNOS; Translations: [NONSP IMMUN FIND NECANDNOS] Onset: 11-08-2019 Unclassified (1 source) JOINT PAIN-SITE NOS; Translations: [JOINT PAIN-SITE NOS] Onset: 08-13-2019 Unclassified (1 source) Low back pain, unspecified; Translations: [Low back pain, unspecified] Onset: 04-03-2023 Unclassified (14 sources) MCR Well Adult - In general the patient does not feel well (been having bilateral shoulder pain--pt thinks he needs a MRI on his shoulders and is willing to do PT in hopes of getting MRI approved. He has noticed becoming short of breath easily with activity.), has decreased energy level and is sleeping poorly (trouble staying asleep, he wears a sleep apnea machine. He at least takes 1 hour nap during the day.). The patient has an inappropriate diet (he is wanting to get back to doing keto diet) and takes no supplemental vitamins & iron. The patient does not exercise and sleeps 7 hours per night. The patient denies having trouble with bathing, dressing/grooming, toileting, preparing meals and ambulating. The patient denies having trouble with grocery shopping, driving, use of telephone, housework, laundry, preparing/taking medications and finances. The patient has a Healthcare Power of Grocery Clerk Selling and a Living Will. 10-10-2022 Unclassified (14 sources) Well adult male - The patient does not feel well, has good energy level (he said it is okay) and is sleeping poorly. The patient has a balanced diet (doing low carb diet.). The patient does not exercise. The patient sleeps 7 hours per night. 09-16-2021 Unclassified (14 sources) Depression (Follow-up) - Since diagnosis the disease has been worsening. Symptoms include suicidal ideation (Partner states he has claimed he doesn't care if he gets covid and dies. Patient also stated doesn't everyone think about it at some point ), loss of interest (Doesn't leave the house unless absolutely needed.), depressed mood, fatigue, weight gain, poor sleep, irritability (patient states when people annoy me I would like to see them go up in flames ) and anxiety, while symptoms do not include poor concentration, indecisiveness, psychomotor retardation, appetite change, weight loss, hypersomnia or headaches. Onset was sudden 1 month(s) ago. The episodes last for 4 weeks. The symptoms occur constantly. The patient describes this as severe and worsening. Symptoms are not exacerbated by emotional stress, fatigue, family stressors, job stressors, winter months or menstrual cycles. Current treatment includes selective serotonin reuptake inhibitors. By report there is good compliance with treatment and poor symptom control. Note for Depression : Patient has been taking sertraline for many years. He felt that is worked in the beginning, but feels that it is not working for his symptoms at all. 01-19-2021 Unclassified (14 sources) cyst on back? - pt says he feels cysts in his back ( internal)- said his grandpa had tumors in his back that they had to take out says the one he has had for years, and the other one he has noticed recently ( pt was unsure how long exactly)painful, tender, and feels like its pulling on the muscle when he leans- says they bug him on lower back- pt says he feels 2 of them 02-13-2020 Unclassified (14 sources) spots on legs and arm - left legs- has spots on front of leg( pt says these ones will get welts, and run together) and on the back of the calf- sometimes itchy, more inflammed at nightnoticed them about a month ago pt says he had a steroid injection yesterday and thinks they may have come down a little bitno drainageleft arm has spots/ rash on it as well, been there for a few months, itchy at times, drains only when he scratches it, also bleeds, he arm is more itchy in the leg 12-17-2019 Unclassified (14 sources) Foot pain - The pain is in the right foot and is located in the entire foot. The onset of the foot pain was acute and has been occurring in a persistent pattern for 5 days. The course has been increasing. The pain is moderate. The pain is characterized as tearing. The pain is aggravated by any movement (hurts while even just sitting there). The pain has not been relieved by anything. 08-01-2019 Unclassified (14 sources) Follow up consultation - The patient is here to follow-up after Emergency Room/Urgent Care ([facility]) on : (06/17/2019). Current symptoms include abdominal pain (LLQ pain-nausea has not got any better since the ER- was put on augmentin- still taking thispt says it hurts worse when he is totally relaxed). 06-25-2019 Unclassified (14 sources) Rectal bleeding - The onset of the rectal bleeding has been gradual and has been occurring in an intermittent pattern for 7 months. The course has been increasing. The bleeding is characterized as blood mixed in stools (sometimes), blood streaking of toilet paper and bloody toilet bowl water. The symptoms have been associated with abdominal pain and mucus or pus with stool (lots of mucus), while the symptoms have not been associated with dizziness, family history of colon cancer, heartburn, ingestion of iron pills, nausea or vomiting. The accompanying symptoms include pain (abdominal) and itching (he has hemmroids). Note for Rectal bleeding : bright red blood, lots of mucus and hurts more in his stomachpt is getting bcg treatments for bladder cancerwants his sugar checked?last A1c was 11/08/18 wants to know if he should get A1c or not 02-05-2019 Unclassified (14 sources) [facility] Routine follow-up - The patient is here for follow-up of hypertension, diabetes, obesity and depression. The patient usually takes the prescribed medications. No side effects noted. The patient has low activity level and no regular program. The patient's out of office blood pressure checks occur rarely and dietary compliance is fairly good usually adhering to recommendations. The patient states that there is no recent angina or dyspnea, there are no vision changes or weakness, weight has increased (6#), depression has worsened and they do not have headaches. Note for Routine chronic follow-up : CAMERON 11/08/2018bmp [id number] 11/08/18 6.9stopped bupropion, more aggitated.says does not have a reason to smile 12-18-2018 Unclassified (14 sources) abnormal labs - Pt is scheduled for surgery on 10/04/18 to have tumors removed from his bladder and his sodium was 161 when he had labs done yesterday. 09-20-2018 Unclassified (14 sources) Concern - Patient is here today with concern of pain and lump located on right upper abdomen. Monday, started with a sore throat, cough, sneezing, fever and sinus drainage. The sore throat has resolved. On Monday when he coughed noticed that he felt pain of his right upper abdomen. 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 Since then been having constant pain that will become a severe sharp pain with coughing and movement. Noticed a lump being present in the area as well. Was seen 03/19/2018 for UTI, started on Cipro. Finished course of ATB. Wanted to have urine rechecked today. 03-29-2018 Unclassified (14 sources) UTI - Symptoms include dark urine, abdominal pain and back pain, but do not include dysuria or urinary frequency. Onset was sudden 2 week(s) ago. The symptoms occur constantly. The patient describes this as moderate in severity and worsening. Associated symptoms do not include fever, nausea or urinary retention. 03-19-2018 Unclassified (14 sources) Rash - The rash has been occurring in a persistent pattern for 1 week. The course has been constant. The rash is characterized as red and raised above the skin (some bumpy areas and open areas). It spread to the trunk, the groin and the genital area. There has been associated itching, pain (at times will be painful) and erythema, while there has been no associated drainage. There has been no associated chills or fever. Note for Rash : Has tried antifungal spray and medicated powder. 11-25-2016 Unclassified (14 sources) Headache - The onset of the headache has been acute and has been occurring in a persistent pattern for 2 days. The course has been recurrent. The headache is characterized as severe. Note for Headache : Fell off the end of bed onto back. Has severe headaches after coughing. Has foot surgery last week. 08-29-2016 Unclassified (14 sources) Leg swelling - The onset of the leg swelling has been variable and has been occurring in a persistent pattern for months. The course has been increasing. The leg swelling is described as severe. The leg swelling is described as being located in the left calf, right calf, left thigh and right thigh. The symptoms have been associated with pain, erythema (slight) and decreased range of motion, while the symptoms have not been associated with shortness of breath or chest pain. Note for Leg swelling : Patient also complains of intermittent hematuria. He will try to give a urine specimen before he leaves today. He is on Xarelto. 07-08-2016 Unclassified (14 sources) Abdominal pain - The onset of the abdominal pain has been acute and has been occurring in a persistent pattern for 3 days. The course has been constant. The pain is described as a moderate sharp pain, dull ache and pressure sensation. The pain is located in the lower abdomen. The symptoms have been associated with constipation, diarrhea and nausea, while the symptoms have not been associated with fever. Note for Abdominal pain : Is currently on Augmentin for strep throat. 11-16-2015 Unclassified (14 sources) Shoulder pain - The onset of the shoulder pain has been sudden following no specific incident and has been occurring in a persistent pattern for 6 days. The course has been worsening. The pain is characterized as a moderate sharp stabbing. The pain is described as being located in the left shoulder and is aggravated by any movement. There are no relieving factors. The symptoms have been associated with joint swelling, painful ROM and decreased ROM. The shoulder pain was preceded by trauma (5 years ago). There has been no previous diagnostic testing. Note for Shoulder pain : also having feet pain and sweeling that has been occuring for years. 07-09-2015 Unclassified (14 sources) Back pain - The onset of the back pain has been acute and has been occurring in a persistent pattern for 7 days. The pain is characterized as a dull ache and shooting (when he moves). The pain is located in the lower back and does not radiate. There are no precipitating factors. The symptoms are relieved by ice. Note for Back pain : Ortho discontinued ibuprofen and tylenol and started celebrex 200mg qd. Trmadol has not been helping. Pt is scheduled for MRI of his hip today. 03-05-2015 Unclassified (14 sources) [facility] Routine Follow up - The patient is here for follow-up of hypertension (Last rtn visit 07/18/14. Lipid and BMP 06/27/14.), obesity, GERD and NAFLD. The patient always takes the prescribed medications. No side effects noted. The patient has low activity level and no regular program. The patient's out of office blood pressure checks occur occasionally and dietary compliance is fairly good usually adhering to recommendations. The patient states that breathing effort is stable, there is no recent angina or dyspnea, there are no vision changes or weakness, pain is worse (lower extremity), mood is unchanged, they are still having trouble sleeping and they do not have headaches. 11-17-2014 Unclassified (14 sources) follow up - Patient was seen on 06/30/14 for several issues. At patient's last office visit, he was instructed to stop Cardizem and restart Atenolol 100mg daily. Patient is here to follow up today. Patient reports he was able to check his bp right after he had his medications changed and it was down around 125/70's. Patient feels like he is improved since his last visit; however, he has been working a lot of hours at work, and is very tired. Note: Patient's weight increased 16# since his last visit. 07-18-2014 Unclassified (14 sources) Cold Symptoms - Symptoms include nasal congestion, runny nose, ear fullness, sore throat, dry cough, productive cough, chills and headache, but do not include fever. The onset was sudden 4 day(s) ago. The symptoms occur constantly. The patient describes this as moderate in severity and worsening. Current treatment includes non-prescription cold medication. The patient has not been exposed to an individual with similar symptoms. Medical history includes asthma, but patient denies history of seasonal allergies, recurrent sinusitis, recurrent strep pharyngitis, tonsillectomy or recurrent ear infections. 06-18-2013 Unclassified (14 sources) Hip pain - The onset of the hip pain has been acute and has been occurring in a persistent pattern for 10 years (but states in past couple months it has gotten so much worse that he doesnt want to walk). The course has been increasing. The hip pain is described as being a moderate to severe sharp stabbing located in the hip (rt). The hip pain radiates to the down the entire leg (and also the left leg(d/t using it more to baby the other)). The pain is aggravated by any movement and walking. Relieving factors include rest. The symptoms have been associated with limping, stiffness, weakness, decreased range of motion and difficulty arising from chair. Previous evalutations have been completed by an orthopaedic surgeon (about 10 years ago). There has been no previous physical therapy. There has been no previous surgeries. Previous medications have included Ibuprofen. 05-17-2013 Unclassified (14 sources) [facility] Routine Follow up - The patient is here for follow-up of hypertension (Last rtn visit 09/04/12. TSH and CMP 09/04/12. Lipid and ALT 08/06/11.) and other condition(s) (Pedal Edema and NAFL). The patient always takes the prescribed medications. No side effects noted. The patient has low activity level and no regular program. The patient's out of office blood pressure checks occur rarely and dietary compliance is fair often eating foods not normally recommended. The patient states that breathing effort is stable, there is no recent angina or dyspnea, there are no vision changes or weakness, pain is worse (Patient complains of heartburn problems), weight has increased (6#), mood is unchanged, they are still having trouble sleeping (due to heartburn) and headaches are rarely noted (Patient complains of a headache today.). 03-05-2013 Unclassified (14 sources) recheck lungs - pt is here to recheck lungs after starting antibiotics and inhaler, pt is having some coughing. Also wants to review gallbladder u/s results 04-20-2011 Unclassified (10 sources) Heartburn - The onset of the heartburn has been sudden and has been occurring in a persistent pattern for 6 months. The course has been constant. The heartburn is characterized as burning and pressure. The heartburn is described as being located in the upper epigastrium (pain under right ribs. He states every time he has the heartburn he has green bowel movement .). The symptoms are aggravated by lying down. The symptoms have no relieving factors. Note for Heartburn : As a child you had surgery and had appendix removed. At the time they found a mass under his ribs and removed that also. This was what was giving him the pain. 04-12-2011 Unclassified (10 sources) [ADDITIONAL REASON] right hip pain - Seen for this about one yr ago per [facility]. The pain comes and goes. He has trouble walking and twisting his leg. The worst thing is going up steps. It is interfering with his job. 04-12-2011 Unclassified (14 sources) Cold Symptoms - Symptoms include sneezing, nasal congestion, runny nose, ear fullness, scratchy throat, productive cough, fever (did not take but felt like he had a fever), chills, headache and facial pain. The onset was sudden 2 month(s) ago. The symptoms occur constantly. The patient describes this as moderate in severity and worsening. Current treatment includes non-prescription cold medication. 09-15-2010 Unclassified (14 sources) hip pain - walks in with right hand on his right hip. states since last visit his hip has been hurting. no injury. takes 4 ibuprofen at a time and it does not help pain. wakes him at night. he had some percocet and he states he took that a few times and it did help him. 05-14-2010 Unclassified (14 sources) Follow up consultation - The patient is here to follow-up after Emergency Room/Urgent Care ([facility] on 03-22, was sent to er from work because of chest pain and dizziness. Has not been taking previously rx'd meds (cozzar 50mg, lisinopril 40mg, and atenolol 100mg bid). Says er gave him inhaler and said he had bronchitis.). 03-29-2010 Unclassified (12 sources) Elevated BS - Patient is a known diabetic, however he states his BS have reached the high 400s. Patient has gained some weight. States he is following a keto diet the best he can. Patient states he also experiences dizziness, fatigue, excessive thirst, and dry mouth. Patient does have glucometer readings with him. 09-13-2023 Unclassified (4 sources) right hip pain - Seen for this about one yr ago per [facility]. The pain comes and goes. He has trouble walking and twisting his leg. The worst thing is going up steps. It is interfering with his job. 04-12-2011 Unclassified (4 sources) [ADDITIONAL REASON] Heartburn - The onset of the heartburn has been sudden and has been occurring in a persistent pattern for 6 months. The course has been constant. The heartburn is characterized as burning and pressure. The heartburn is described as being located in the upper epigastrium (pain under right ribs. He states every time he has the heartburn he has green bowel movement .). The symptoms are aggravated by lying down. The symptoms have no relieving factors. Note for Heartburn : As a child you had surgery and had appendix removed. At the time they found a mass under his ribs and removed that also. This was what was giving him the pain. 04-12-2011 Results Test Name Value Interpretation Reference Range Facility Laboratory - Hematology and Cell countson 03-29-2024 HbA1c (Bld) [Mass fraction] 7.5 % Abnormal 4.6 - 7.1 % [facility]25[facility]2024 [facility] Telephone (ENWSTR) ADRIAN APONTE JR. ([id number]) 1970 M Date Time Provider Department 03/25/24 MICAH REID [facility] During your visit today, we recorded the following information about you: Rama Logan MA 03/25/2024 9:48 AM Signed Fax received requesting [employer] notes for insurance coverage of CGM.Notes printed and faxed. Confirmation received and placed in file. Rama Logan MA Allergies As of Date: 03/25/2024 Noted Allergy Reaction MORPHINE 01/31/2019 9 - Itching Comments: IV burning and itching QUININE 01/01/2015 4 - Hives Date Reviewed: 02/27/2024 Reviewed by: Josette Sim, RN - Fully Assessed Reason for Visit: Orders [681] Cmt: Dexcom G7 Prescriptions as of 03/25/2024 - BASAGLAR KWIKPEN U-100 INSULIN 100 unit/mL (3 mL) Inject 20 Units subcutaneously daily at bedtime. - semaglutide (OZEMPIC) 1 mg/0.75 ml subcutaneous pen injector Inject 1 mg subcutaneously one time a week. - metFORMIN (GLUCOPHAGE) 1,000 mg tablet Take 1 tablet by mouth two times a day. - Blood-Glucose Sensor (DEXCOM G7 SENSOR) elia Inject 1 Each subcutaneously every 10 days. Patient should start on March 27, 2024. - BD INSULIN SYRINGE 0.5 mL 29 gauge x 1/2 1 Each four times daily. - NOVOLIN R REGULAR U100 INSULIN 100 unit/mL injection Inject 5 Units subcutaneously three times a day before meals. Take 5 units of insulin regular with each meal, along with sliding scale as below: From 150-180, take 1 unit From 180-210, take 2 units From 210-240, take 3 units From 240-270, take 4 units, From 270-300, take 5 units From 300-330, take 6 units From 330-360, take 7 units - tamsulosin (FLOMAX) 0.4 mg Take 1 capsule by mouth daily at bedtime. - oxybutynin XL (DITROPAN XL) 5 mg 24 hr tablet Use daily, or as needed for bladder spasms - cyclobenzaprine (FLEXERIL) 10 mg tablet Take 10 mg by mouth three times a day as needed for muscle spasm. - diazePAM (VALIUM) 5 mg tablet Take 5 mg by mouth three times a day as needed. - FLUoxetine (PROZAC) 10 mg capsule Take 1 capsule by mouth once daily. - atenolol (TENORMIN) 50 mg tablet Take 50 mg by mouth two times a day. - FLUoxetine (PROZAC) 20 mg capsule Take 1 capsule by mouth once daily. - varenicline (CHANTIX) 1 mg tablet Take 1 tablet by mouth twice daily. - gabapentin 600 mg Tb24 Take 1 tablet by mouth three times daily with meals. - furosemide (LASIX) 40 mg tablet Take 40 mg by mouth once daily. - metaxalone (SKELAXIN) 800 mg tablet Take 800 mg by mouth three times daily as needed. - losartan (COZAAR) 50 mg tablet Take 50 mg by mouth once daily. - oxyCODONE-acetaminoph en (PERCOCET) 5-325 mg tablet Take 1 tablet by mouth every 6 hours as needed. - albuterol HFA (PROVENTIL HFA, VENTOLIN HFA) 90 mcg/actuation inhaler Inhale 2 Puffs as instructed every 4 hours as needed for wheezing/shortness of breath. - acetaminophen (TYLENOL) 325 mg tablet Take 650 mg by mouth every 6 hours as needed for pain. - XARELTO 20 mg tablet Take 20 mg by mouth once daily. - omeprazole (PRILOSEC) 20 mg capsule Take 20 mg by mouth two times a day. 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 [Z79.899]01/30/2017 02/14/2019 Sleep apnea [G47.30] 09/12/2018 Anxiety and depression [F41.9, F32.A] 01/30/2017 Cardiac arrest (HCC) [I46.9] 09/18/2018 04/20/2019 Deep venous thrombosis (HCC) [I82.409] 09/12/2018 Gastro-esophageal reflux disease without esopha*01/30/2017 Hypertension [I10] 07/14/2014 Lumbosacral radiculopathy [M54.17] 09/18/2018 Major depressive disorder, single episode, unsp*01/30/2017 Other secondary pulmonary hypertension (HCC) [I*01/30/2017 Intervertebral disc disorder with radiculopathy* 017 Pulmonary embolism (HCC) [I26.99] 03/16/2016 Restrictive lung disease [J98.4] 09/18/2018 02/14/2019 Tobacco dependence in remission [F17.201] 07/14/2014 Tricuspid valve regurgitation [I07.1] 09/18/2018 Type 2 diabetes mellitus (HCC) [E11.9] 08/29/2018 Bilateral leg edema [R60.0] 09/18/2018 Morbidly obese (HCC) [E66.01] 09/18/2018 Malignant neoplasm of lateral wall of bladder (*09/18/2018 Diabetic neuropathy (HCC) [E11.40] 02/14/2019 Obesity, Class III, BMI >= 40 [E66.01] 02/10/2022 Pre-op examination [Z01.818] 10/02/2023 Encounter Status:Closed by RAMA LOGAN on 03/25/24 [facility] CNOVon 02-27-2024 CNOV Office Visit (ENWSTR ) ADRIAN APONTE JR. ([id number]) 1970 M Date Time Provider Department 02/27/24 4:20 PM MICAH REID ENJAYJAY During your visit today, we recorded the following information about you: Pulse Respiration Weight Height 90/minute 20/minute 175.5 kg 1.803 m Micah Reid MD 02/27/2024 7:13 PM Signed [facility] Follow up visit Referred by: Edin Tomlinson PA-C Chief complaint: poorly controlled diabetes mellitus type 2 LV : 01/10/24 He is accompanied by his today History of Present Illness: -Initially diagnosed: 5 years ago, he went to hospital for a different problem, his sugars were checked followed by Hba1c and was diagnosed with diabetes. PMH: bladder cancer, [place] PCP was managing since diagnosis He was following with Dr. Hartman at [facility], but had issues with insurance paying for the visit Start of insulin: was on insulin 5 years ago, stopped but started recently again due to worsening of diabetes Complications: Cardiovascular -- Yes HTN, cardiac arrest 5 to 6 years ago due to blood clot, on blood thinner xarelto Statin Use -- No, he does not want them due to too many complications Retinopathy -- No Last MASTER/Retina Eval: no retinopathy, macular degeneration, one year ago, octoberSeptember 2022 Nephropathy -- No ENE/ARB Use -- Yes, losartan Polyneuropathy -- did not report in the past of nay symptoms of neuropathy Foot Exam: unknown, done today Obesity -- Yes Other -- No -Family history of diabetes mellitus: niece with Type 1 DM Personal history of DKA or HHS-- yes, HHS and then started fast acting insulin Personal history of pancreatitis-- No History of alcohol consumption--occasion ally Family history of thyroid cancer-- No Personal history of Urinary tract infections -- None is the recent past . Diabetes Medications -Current regimen: basaglar 20 units daily at bedtime 5 units of insulin regular with each meal, along with sliding scale as below: From 150-180, take 1 unit From 180-210, take 2 units From 210-240, take 3 units From 240-270, take 4 units, From 270-300, take 5 units From 300-330, take 6 units From 330-360, take 7 units Per patient's description goes his sensitivity factor is 20 metformin to 1000 mg BID Ozempic 1 mg weekly -Misses doses: He admits to not using Novolin usually, very rarelky dies he take it., but he is not missing Basaglar -Adverse medication effects: denies -Previously Used DM Meds: Yes Trulicity - due to shortage Glimepiride - stopped after starting trulicity . Blood sugars -Self monitoring of blood sugar via Dexcom G7: Summary of Personal CGM Findings: January 28, 03/01/2024 to February 27, 2024 1) CGM recording is adequate for interpretation. Worn 27% of time (02/08) 2) Average glucose is 158 mg/dL. BG range/St. Dev: 35 mg/dL 3) 80% time in range 70-180 mg/dL 4) Total frequency of hypoglycemia: 0% with BG < 70 - Hypoglycemia patterns: N/AA - Nocturnal hypoglycemia was NOT noted 5) Hyperglycemic episodes 18% with BG > 180, 2% more than 250 - Hyperglycemia patterns: Post dinner . Hypoglycemia -Hypoglycemic episodes: not lately -Frequency and timing of hypoglycemia: when weight loss occurred -Hypoglycemia awareness: yes, feels eyes burning, grainy sensation . Lifestyle -Exercise: walking sometimes , at work walks a lot, no regular exercise -Diet: Breakfast: coffee with cream Lunch: ham sandwich, left overs from fridge, chicken wraps Dinner: pizza, eats outside, fish, vegetables, shrimp, steak, carrots Snacking: sometimes Sods, juices sometimes ROS: SYSTEMIC: Denies fatigue, malaise, energy, Weight has been stable, heat/cold intolerance, polydipsia EYES: Denies blurring of vision, diplopia, pain/discomfort, excessive tearing, swelling of eye lids, bulging, redness, dryness, NECK: Denies goiter, lump, pain/discomfort, dysphagia, hoarseness, sore thorat RESPIRATORY: Denies dyspnea at rest/with exertion, orthopnea cough, pleuritic chest pain, snoring, apnea episodes CARDIOVASCULAR: Chest pain, palpitations, irregular heart beats GASTRO-INTESTINAL:Den ies Nausea, vomiting, abdominal pain, hyperdefecation, rectal bleeding NEUROLOGICAL: Denies dizziness, lightheadedness, weakness, cramping, numbness/tingling of extremities MUSCULOSKELETAL: Denies joint pain, stiffness, swelling, cramping or weakness. GENITOURINARY: Denies polyuria, recurrent UTI/yeast infections SKIN: Denies dryness, brittle nails, hair loss, alopecia, excessive sweating, flushing, darkening of skin PSYCHIATRIC: Denies anxiety, depression, panic attacks, irritability, mood swings Past Medical History PAST MEDICAL HISTORY Diagnosis Date Anxiety and depression Arthritis Bilateral leg edema Bladder cancer (HCC) BPH (benign prostatic hyperplasia) Erica (more content not included)... Normal [facility] GLOOKO ON DEMANDon Ordered by an unspecified provider. [facility] HEMOGLOBIN A1C (POC)on 02-26 HbA1c (Bld) [Mass fraction] 7.2 % Abnormal 4.3 - 5.6 % [facility] Comment on above: Location:[facility], [address], [place], [address] Point of care (POC) Hemoglobin A1c (HGBA1C) testing is intended to assess glucose control and provide a management tool for patients known to have diabetes and their healthcare providers. Target HGBA1C levels may depend on specific clinical circumstances. POC HGBA1C is not intended for use as a diagnostic or screening test; laboratory-based testing should be used for diagnostic purposes. The following information is supplemental and may not be applicable to specific diabetes management situations: The POC device primary care md provides a normal range of 4.2% to 6.5% for the HGBA1C POC test. However, the [place] [employer] guidelines indicate that patients with HGBA1C in the range of 5.7% to 6.4% are at increased risk for development of diabetes and that intervention by lifestyle modification may be beneficial. A HGBA1C level greater than or equal to 6.5% is considered diagnostic of diabetes, pending confirmatory testing. Use of HGBA1C testing to evaluate glucose control may not be appropriate for patients with hemoglobin variants or other conditions (e.g. anemia) that alter red blood cell lifespan. Interpretation and review of laboratory results Abnormal [facility] ALBUMIN, RANDOM URINE W/CREA TININEon 11-29-2023 ALBUMIN, URINE 1.1 mg/dL Normal See Note: [facility] Comment on above: Result Comment: Rachel akins Range: Reference Range Not established Performed By: #### 6 [id number] #### [facility] [address], [address] [place] [address] Husbandry Person: Jose Alonso MD ALBUMIN/CREATININE RATIO, RANDOM URINE 5 mg/g creat Normal <30 [facility] Comment on above: Result Comment: The ADA defines abnormalities in albumin excretion as follows: Albuminuria Category Result (mg/g creatinine) Normal to Mildly increased <30 Moderately increased 30-299 Severely increased > OR = 300 The ADA recommends that at least two of three specimens collected within a 3-6 month period be abnormal before considering a patient to be within a diagnostic category. Performed By: #### 6 517 #### [facility] [address], [address] [place] [address] Husbandry Person: Jose Alonso MD Creatinine (U) [Mass/Vol] 202 mg/dL Normal 20-320 [facility] Comment on above: Performed By: #### 6 517 #### [facility] [address], [address] [place] [address] Husbandry Person: Jose Alonso MD Laboratory - Hematology and Cell countson 11-28-2023 HbA1c (Bld) [Mass fraction] 9.6 % Abnormal 4.6 - 7.1 % [facility] No Panel Informationon 11-27 202 mg/dL Normal 20 - 320 mg/dL [facility] 1.1 mg/dL Normal [facility] 5 {mg/g_creat} Normal [facility]. CBC (INCLUDES DIFF/PLT)on Basophils (Bld) [#/Vol] 0.069 10*3/uL Normal 0-200 [facility] Comment on above: Performed By: #### 6 399 #### [facility] of [address], [address] [place] [address] Husbandry Person: Jose Alonso MD Basophils/100 WBC (Bld) 0.8 % Normal [facility] Comment on above: Performed By: #### 6 399 #### [facility] [place] [address] Husbandry Person: Jose Alonso MD Eosinophils (Bld) [#/Vol] 0.026 10*3/uL Normal 15-500 [facility] Comment on above: Performed By: #### 6 399 #### [facility] [place] [address] Husbandry Person: Jose Alonso MD Eosinophils/100 WBC (Bld) 0.3 % Normal [facility] Comment on above: Performed By: #### 6 399 #### [facility] [place] [address] Husbandry Person: Jose Alonso MD Erythrocyte distribution width (RBC) [Ratio] 13.5 % Normal 11.0-15.0 [facility] Comment on above: Performed By: #### 6 399 #### [facility] [place] [address] Husbandry Person: Jose Alonso MD Hematocrit (Bld) [Volume fraction] 46.1 % Normal 38.5-50.0 [facility] Comment on above: Performed By: #### 6 399 #### [facility] [place] [address] [place] [address] Husbandry Person: Jose Alonso MD Hemoglobin (Bld) [Mass/Vol] 15.2 g/dL Normal 13.2-17.1 [facility] Comment on above: Performed By: #### 6 399 #### [facility] [place] [address] Husbandry Person: Jose Alonso MD Lymphocytes (Bld) [#/Vol] 3.062 10*3/uL Normal 850-3900 [facility] Comment on above: Performed By: #### 6 399 #### [facility] [place] [address] Husbandry Person: Jose Alonso MD Lymphocytes/100 WBC (Bld) 35.6 % Normal [facility] Comment on above: Performed By: #### 6 399 #### [facility] [place] [address] Husbandry Person: Jose Alonso MD MCH (RBC) [Entitic mass] 31.7 pg Normal 27.0-33.0 [facility] Comment on above: Performed By: #### 6 399 #### [facility] [place] [address] Husbandry Person: Jose Alonso MD MCHC (RBC) [Mass/Vol] 33.0 g/dL Normal 32.0-36.0 [facility] Comment on above: Performed By: #### 6 399 #### [facility] [place] [address] Husbandry Person: Jose Alonso MD MCV (RBC) [Entitic vol] 96.0 fL Normal 80.0-100.0 [facility] Comment on above: Performed By: #### 6 399 #### [facility] of [place] [address] Husbandry Person: Jose Alonso MD Monocytes (Bld) [#/Vol] 0.654 10*3/uL Normal 200-950 [facility] Comment on above: Performed By: #### 6 399 #### [facility] of [address], [address] [place] [address] Husbandry Person: Jose Alonso MD Monocytes/100 WBC (Bld) 7.6 % Normal [facility] Comment on above: Performed By: #### 6 399 #### [facility] of [address], [address] [place] [address] Husbandry Person: Jose Alonso MD Neutrophils (Bld) [#/Vol] 4.79 10*3/uL Normal 3201-2856 [facility] Comment on above: Performed By: #### 6 399 #### [facility] of [place] [address] Husbandry Person: Jose Alonso MD Neutrophils/100 WBC (Bld) 55.7 % Normal [facility] Comment on above: Performed By: #### 6 399 #### [facility] of [place] [address] Husbandry Person: Jose Alonso MD Platelet mean volume (Bld) [Entitic vol] 11.0 fL Normal 7.5-12.5 [facility] Comment on above: Performed By: #### 6 399 #### [facility] of [place] [address] Husbandry Person: Jose Alonso MD Platelets (Bld) [#/Vol] 233 10*3/uL Normal 140-400 [facility] Comment on above: Performed By: #### 6 399 #### [facility] of [place] [address] Husbandry Person: Jose Alonso MD RBC (Bld) [#/Vol] 4.80 10*6/uL Normal 4.20-5.80 [facility] Comment on above: Performed By: #### 6 399 #### [facility] of [place] [address] Husbandry Person: Jose Alonso MD WBC (Bld) [#/Vol] 8.6 10*3/uL Normal 3.8-10.8 [facility] Comment on above: Performed By: #### 6 399 #### [facility] [address], [address] Husbandry Person: Jose Alonso MD LYME DISEASE AB W/REFL TO BL OT (IGG, IGM)on 11-23-2023 LYME AB SCREEN <0.90 Normal [facility] Comment on above: Result Comment: Inde x Interpretation ----- < 0.90 Negative 0.90-1.09 Equivocal > 1.09 Positive As recommended by the Food and Drug Administration (FDA), all samples with positive or equivocal results in a Borrelia burgdorferi antibody screen will be tested using a blot method. Positive or equivocal screening test results should not be interpreted as truly positive until verified as such using a supplemental assay (e.g., B. burgdorferi blot). The screening test and/or blot for B. burgdorferi antibodies may be falsely negative in early stages of Lyme disease, including the period when erythema migrans is apparent. Performed By: #### 6 399 #### [facility] [address] [facility], [address] Husbandry Person: Jose Alonso MD No Panel Informationon 11-21 8.6 Normal 3.8 - 10.8 [employer] 4.80 {Million/uL} Normal 4.20 - 5.8 0 {Million/uL} [employer] 15.2 g/dL Normal 13.2 - 17.1 g/dL [employer] 46.1 % Normal 38.5 - 50.0 % [employer] 96.0 fL Normal 80.0 - 100.0 fL [employer] 31.7 pg Normal 27.0 - 33.0 pg [employer] 33.0 g/dL Normal 32.0 - 36.0 g/dL [employer] 13.5 % Normal 11.0 - 15.0 % [employer] 233 Normal 140 - 400 [employer] 11.0 fL Normal 7.5 - 12.5 fL [employer] 4790 {cells/uL} Normal 1500 - 7800 {cells/uL} [employer] 3062 {cells/uL} Normal 850 - 3900 {cells/uL} [employer] 654 {cells/uL} Normal 200 - 950 {cells/uL} [employer] 26 {cells/uL} Normal 15 - 500 {cells/uL} [employer] 69 {cells/uL} Normal 0 - 200 {cells/uL} [employer] 55.7 % Normal [employer] 35.6 % Normal [employer] 7.6 % Normal [employer] 0.3 % Normal [employer] 0.8 % Normal [employer] <0.90 Normal [employer] OV 11-07-2023 OV Office Visit (UROLMD ) ADRIAN APONTE JR. ([id number]) 1970 M Date Time Provider Department 11/07/23 8:30 AM TIERRA CAAL JR [facility]OL[facility] During your visit today, we recorded the following information about you: Weight Height 178.7 kg 1.803 m Tierra Caal Jr., MD 11/07/2023 8:42 AM Signed ESTABLISHED PATIENT OFFICE VISIT HPI Adrian Aponte Jr. is a 53 year old male who presents sp turbt. Doing well. Path discussed. Benign. No fever. No uti. Feels well otherwise. LAB: Creatinine Date Value Ref Range Status 01/24/2022 0.90 0.73 - 1.22 mg/dL Final No results found for: PSA Glucose, Urine (mg/dL) Date Value 09/05/2017 Negative Bilirubin, Urine (no units) Date Value 09/05/2017 Negative Ketones, Urine (no units) Date Value 09/05/2017 Negative Specific [place], Ur (no units) Date Value 09/05/2017 1.003 Hemoglobin/Blood,Ur ( ) Date Value 09/05/2017 Negative pH, Urine (no units) Date Value 09/05/2017 5.5 Protein, Urine (mg/dL) Date Value 09/05/2017 Negative Nitrites (no units) Date Value 09/05/2017 Negative MEDICATIONS: BD INSULIN SYRINGE 0.5 mL 29 gauge x 1/2 USE ONE syringe as directed NOVOLIN R REGULAR U100 INSULIN 100 unit/mL injection inject nothing if glucose <150, 151-250 give THREE units, 251 TO 350 give FIVE units, 351-450 give EIGHT units, greater THAN 550 give 10 units OZEMPIC 0.25 mg or 0.5 mg (2 mg/3 mL) pen inject 0.25 MG INTO THE SKIN every WEEK tamsulosin (FLOMAX) 0.4 mg Take 1 capsule by mouth daily at bedtime. oxybutynin XL (DITROPAN XL) 5 mg 24 hr tablet Use daily, or as needed for bladder spasms dulaglutide (TRULICITY) 4.5 mg/0.5 mL pen injector Inject subcutaneously one time a week. cyclobenzaprine (FLEXERIL) 10 mg tablet take ONE tablet BY MOUTH UP TO THREE TIMES DAILY, as needed FOR muscle SPASMS diazePAM (VALIUM) 5 mg tablet Take 5 mg by mouth three times a day as needed. (Patient not taking: Reported on 10/04/2023) FLUoxetine (PROZAC) 10 mg capsule Take 1 capsule by mouth once daily. TRULICITY 3 mg/0.5 mL pen injector Inject subcutaneously one time a week. atenolol (TENORMIN) 50 mg tablet Take by mouth twice daily. FLUoxetine HCl 20 mg tablet Take 20 mg by mouth once daily. varenicline (CHANTIX) 1 mg tablet Take 1 tablet by mouth twice daily. (Patient not taking: Reported on 10/04/2023) gabapentin 600 mg Tb24 Take 1 tablet by mouth three times daily with meals. furosemide (LASIX) 40 mg tablet Take 40 mg by mouth once daily. metaxalone (SKELAXIN) 800 mg tablet Take 800 mg by mouth three times daily as needed. (Patient not taking: Reported on 10/04/2023) losartan (COZAAR) 50 mg tablet Take 50 mg by mouth once daily. oxyCODONE-acetaminoph en (PERCOCET) 5-325 mg tablet Take 1 tablet by mouth every 6 hours as needed. albuterol HFA (PROVENTIL HFA, VENTOLIN HFA) 90 mcg/actuation inhaler Inhale 2 Puffs as instructed every 4 hours as needed. acetaminophen (TYLENOL) 325 mg tablet Take 650 mg by mouth every 6 hours as needed. XARELTO 20 mg tablet Take 20 mg by mouth once daily. omeprazole (PRILOSEC) 20 mg capsule Take by mouth twice daily. REVIEW OF SYSTEMS Review of Systems Constitutional: Negative. Respiratory: Negative. Cardiovascular: Negative. Gastrointestinal: Negative. Genitourinary: Negative. Skin: Negative. Neurological: Negative. Psychiatric/Behaviora l: Negative. HISTORIES PAST MEDICAL HISTORY Diagnosis Date Anxiety and depression Arthritis Bilateral leg edema Bladder cancer (HCC) BPH (benign prostatic hyperplasia) Diabetic neuropathy (HCC) DM (diabetes mellitus) (HCC) GERD (gastroesophageal reflux disease) HTN (hypertension) Hx of blood clots 01/2016 Blood clot in lung and behind right knee cardiac arrest due to lack of oxygen Hypertension Intervertebral disc disorder with radiculopathy of lumbar region Malignant neoplasm of urinary bladder (HCC) Morbidly obese (HCC) KHALIF (obstructive sleep apnea) + bipap PE (pulmonary thromboembolism) (HCC) with acute cor pulmonale Tricuspid valve regurgitation FAMILY HISTORY Problem Relation Age of Onset other (Heart age 67) Mother other (Heart Attack age 64) Father Alzheimer's Disease Paternal Grandmother Diabetes Other SOCIAL HISTORY Social History Tobacco Use Smoking status: Every Day Packs/day: 1.00 Years: 37.00 Additional pack years: 0.00 Total pack years: 37.00 Types: Cigarettes Passive exposure: Never Smokeless tobacco: Former Types: Chew Quit date: 1988 Tobacco comments: pt has not smoked x 2 days 10/29/21 Vaping Use Vaping Use: Never used Substance Use Topics Alcohol use: Yes Alcohol/week: 2.0 standard drinks of alcohol Types: 2 Cans of Beer (12oz) per week Comment: social Drug use: No PHYSICAL EXAMINATION General appearance: Well appearing, alert, in no acute distress, a (more content not included)... Normal [facility] UA DIP, URINE (POC)on 2023 BILIRUBIN UA (POCT) Negative Negative [facility] CLARITY UA (POCT) [facility] COLOR UA (POCT) Yellow [facility] GLUCOSE UA (POCT) >=1000 Abnormal Negative mg/dL [facility] Hemoglobin Ql (U) Small Abnormal Negative [facility] Interpretation and review of laboratory results Abnormal [facility] KETONE UA (POCT) 80 mg/dL Abnormal Negative [facility] LEUKOCYTES UA (POCT) Negative Negative [facility] NITRITE UA (POCT) Negative Negative [facility] PH UA (POCT) 6.5 4.5 - 8.0 [facility] Protein Ql (U) Trace Abnormal Negative mg/dL [facility] SPECIFIC GRAVITY UA (POCT) 1.015 1.005 - 1.030 [facility] UROBILINOGEN UA (POCT) 1.0 Normal E.U./dL [facility] Location:[address], [address] [facility] POINT OF CARE [facility] OPERATIVE NOon 10-24-2023 OPERATIVE NO HNO ID: [id number] Author: TIERRA CAAL JR, MD Service: Urology Author Type: Physician Type: Operative Report Filed: 10/24/2023 14:18 Note Text: [facility] - Operative Report ADRIAN APONTE Hernan : 1970 AGE: 52. SEX: M PATIENT TYPE: A HOSP SVC: URO LOCATION: [facility] ATTENDING PHYSICIAN: Tierra Caal Jr, MD CSN NUMBER: [id number] DATE OF SURGERY/PROCEDURE: 10/18/2023 INCISION/PROCEDURE START TIME: 8:50 AM INCISION CLOSE/PROCEDURE END TIME: 9:14 AM PREOPERATIVE DIAGNOSIS: Bladder mass. POSTOPERATIVE DIAGNOSIS: Bladder mass. SURGEON: Tierra Caal Jr, MD CIGAR PACKER: No Additional Staff SURGERY/PROCEDURE: Cystoscopy and transurethral resection of bladder tumor (small-1 cm, installation of gemcitabine). ANESTHESIA: General. COMPLICATIONS: None. HISTORY: Adrian Aponte is a 52-year-old gentleman, found on office cystoscopy to have a bladder mass. The patient was counseled on the options for management. We elected for endoscopic resection. DESCRIPTION OF PROCEDURE: After being explained the risks, benefits, and alternatives of procedure, the patient was correctly identified, taken to the operative suite, placed on the table in a dorsal lithotomy position. After general anesthesia was induced, prepped and draped in a normal sterile fashion. The resectoscope was inserted transurethrally into the bladder. On the posterior wall, there was a lesion. This was resected in its entirety. The pieces were collected and sent to lab for pathologic diagnosis. Hemostasis was achieved using electrocautery. At this point, the bladder was drained. The scope was removed. A 16-Lao Rodriguez catheter was placed transurethrally into the bladder. 1000 mg of gemcitabine was instilled into the bladder. This was left for period of 1-hour. At this point, the patient was reversed anesthesia and tolerated the procedure well and afterward was taken to the postoperative care unit for recovery. Tierra Caal Jr, MD MG:[id number] /[id number] Normal [facility] ANES POSTPROC EVALon 024 ANES POSTPROC EVAL HNO ID: [id number] Author: CRUZ GRIFFIN MD Service: Anesthesiology Author Type: Physician Type: Anesthesia Postprocedure Evaluation Filed: 10/19/2023 09:03 Note Text: POST ANESTHESIA EVALUATION NOTE : 1970 Procedure Summary Date: 10/18/23 Room / Location: [facility] OR 18 / [place] OR Anesthesia Start: 832 Anesthesia Stop: 919 Procedures: CYSTOURETHROSCOPY W/FULGURATION AND/OR RESECTION MEDIUM BLADDER TUMOR(S) 2.0 - 5.0 CM W/SALINE BIPOLAR (Bladder) INSTILL ANTICARCINOGENIC AGENT IN BLADDER, GEMCITABINE (Bladder) DILATION URETHRAL (Urethra) Diagnosis: Bladder mass (Bladder mass [N32.89]) Surgeons: Tierra Caal Jr., MD Responsible Provider: Cruz Griffin MD Anesthesia Type: general ASA Status: 3 Anesthesia Type: general Airway Type: ETT Last Vitals Vitals Value Taken Time BP 112/69 10/18/23 1031 Temp 36 ?C (96.8 ?F) 10/18/23 1030 HR SpO2 81 10/18/23 1034 Resp 19 10/18/23 1034 SpO2 92 % 10/18/23 1034 Vitals shown include unfiled device data. Post Anesthesia Patient Status Patient Evaluation: PACU. PACU/ICU Patient Condition: stable. Anticipated Disposition: phase 2 then home. Neurological Status: aware and responsive. Pulmonary Status: breathing comfortably on room air Airway Control: returned to baseline unsupported. Cardiovascular Status: stable. Pain Management: clinically adequate Postoperative Hydration: acceptable. Intraoperative Events: no significant anesthesia events Post Operative Nausea/Vomiting Status: no significant post operative nausea or vomiting Recommendation: continue current plan of care. Anesthesia Observations No Documentation SIGNATURE: Cruz Griffin MD PATIENT NAME: Adrian Aponte Jr. DATE: October 19, 2023 TIME: 9:03 AM CSN: [id number] [facility] ANES PRE-OPon 10-18-2023 ANES PRE-OP HNO ID: [id number] Author: CRUZ GRIFFIN MD Service: Anesthesiology Author Type: Physician Type: Anesthesia Preprocedure Evaluation Filed: 10/18/2023 07:38 Note Text: ANESTHESIOLOGY DAY OF SURGERY NOTE : 1970 Procedure Information Date/Time: 10/18/23829 Procedures: CYSTOURETHROSCOPY W/FULGURATION AND/OR RESECTION MEDIUM BLADDER TUMOR(S) 2.0 - 5.0 CM W/SALINE BIPOLAR (Bladder) INSTILL ANTICARCINOGENIC AGENT IN BLADDER, GEMCITABINE (Bladder) Location: [facility] OR 18 / [facility] [place] Surgeons: Tierra Caal Jr., MD Estimated body mass index is 54.67 kg/m? as calculated from the following: Height as of 10/04/23: 180.3 cm (5' 11 ). Weight as of 10/04/23: 177.8 kg (392 lb). Most recent hematocrit and potassium results: Hematocrit 43.2 09/18/2018 Potassium 3.9 09/18/2018 Relevant Problems ANESTHESIA (+) Sleep apnea CARDIO (+) Deep venous thrombosis (HCC) (+) Hypertension (+) Other secondary pulmonary hypertension (HCC) (+) Pulmonary embolism (HCC) ENDO (+) Type 2 diabetes mellitus (HCC) GI (+) Gastro-esophageal reflux disease without esophagitis PULMONARY (+) Dyspnea, unspecified (+) Sleep apnea Oncology (+) 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) I - PHYSICAL EVALUATION AIRWAY Patient intubated: No. Tracheostomy tube not present Mallampati: II. TM distance: >3 FB. Neck ROM: full ROM without neurological symptoms. Mouth opening: adequate. Short neck: yes. Thick neck: yes Rangel present: yes DENTAL Dental findings: teeth intact. II - ANESTHESIA PLAN ASA Score: 3 Anesthetic Plan: general Airway type: ETT The patient is not a current smoker. NPO Status: adequate Beta Dylan Monitoring Plan Monitoring plan: standard ASA. Post Procedure Analgesic Plan Postoperative analgesic plan: multimodal analgesia. Informed Consent Anesthetic risks, benefits, alternatives, personnel and consent discussed: yes. Patient / Responsible Green Party agrees to proceed: yes Patient / Surrogate agrees to blood products: blood products not planned Potential Anesthesia issues that may suggest increased risk of complications or contraindication to planned procedure: none. Vitals Value Taken Time BP 154/84 10/18/23 0709 Pulse 81 10/18/23 0709 Resp 20 10/18/23 0709 Temp 36.6 ?C (97.9 ?F) 10/18/23 0709 SpO2 95 % 10/18/23 0709 Facility-Administered Medications as of 10/18/2023 Medication Dose Route Frequency lidocaine 10 mg/mL (1 %) 1-2 mg injection (XYLOCAINE) 0.1-0.2 mL INTRADERMAL PRN lactated ringers iv infusion 5-30 mL/hr INTRAVENOUS CONTINUOUS NaCl 0.9% iv flush bag 20 mL INTRAVENOUS PRN [COMPLETED] acetaminophen 975 mg tab(s) (TYLENOL) 975 mg ORAL Pre-Op Once [COMPLETED] celecoxib 400 mg cap(s) (CeleBREX) 400 mg ORAL Pre-Op Once [COMPLETED] gabapentin 300 mg cap(s) (NEURONTIN) 300 mg ORAL Pre-Op Once ceFAZolin iv piggyback 2 g in D5W (iso-osmotic) 100 mL (ANCEF) 2 g INTRAVENOUS ONCE Outpatient Medications as of 10/18/2023 Medication Sig cyclobenzaprine (FLEXERIL) 10 mg tablet take ONE tablet BY MOUTH UP TO THREE TIMES DAILY, as needed FOR muscle SPASMS FLUoxetine (PROZAC) 10 mg capsule Take 1 capsule by mouth once daily. atenolol (TENORMIN) 50 mg tablet Take by mouth twice daily. FLUoxetine HCl 20 mg tablet Take 20 mg by mouth once daily. gabapentin 600 mg Tb24 Take 1 tablet by mouth three times daily with meals. furosemide (LASIX) 40 mg tablet Take 40 mg by mouth once daily. losartan (COZAAR) 50 mg tablet Take 50 mg by mouth once daily. oxyCODONE-acetaminoph en (PERCOCET) 5-325 mg tablet Take 1 tablet by mouth every 6 hours as needed. albuterol HFA (PROVENTIL HFA, VENTOLIN HFA) 90 mcg/actuation inhaler Inhale 2 Puffs as instructed every 4 hours as needed. omeprazole (PRILOSEC) 20 mg capsule Take by mouth twice daily. dulaglutide (TRULICITY) 4.5 mg/0.5 mL pen injector Inject subcutaneously one time a week. diazePAM (VALIUM) 5 mg tablet Take 5 mg by mouth three times a day as needed. (Patient not taking: Reported on 10/04/2023) TRULICITY 3 mg/0.5 mL pen injector Inject subcutaneously one time a week. varenicline (CHANTIX) 1 mg tablet Take 1 tablet by mouth twice daily. (Patient not taking: Reported on 10/04/2023) metaxalone (SKELAXIN) 800 mg tablet Take 800 mg by mouth three times daily as needed. (Patient not taking: Reported on 10/04/2023) acetaminophen (TYLENOL) 325 mg tablet Take 650 mg by mouth every 6 hours as needed. XARELTO 20 mg tablet Take 20 mg by mouth once daily. I have interviewed and examined the patient. I have reviewed the medical record and/or the pre-anesthesia evaluation, pertinent labs, and test results. This contains updated information obtained within 48 hours of Surgery/Procedure. SIGNATURE: Cruz Griffin MD PATIENT NAME: Adrian Aponte Valentin DATE: October 18, 2023 TIME: 7:35 AM CSN: [id number] [facility] BRIEF OP NOTon 10-18-2023 BRIEF OP NOT HNO ID: [id number] Author: TIERRA CAAL JR, MD Service: Urology Author Type: Physician Type: Brief Op Note Filed: 10/18/2023 09:18 Note Text: BRIEF OPERATIVE / PROCEDURE NOTE LOG ID: * No surgery found * Surgery/Procedure Date: * No surgery found * Incision/Procedure Start Time: Incision Close/Procedure End Time: Surgeon(s)/Procedural ist(s) and [employer] Officer(s): * Surgery not found * * Surgery not found * Procedure(s): cystoscopy, turbt (small - 1cm), instill gemcitabine Anesthesia: * No surgery found * Findings: as dx suggests Estimated Blood Loss: 0 ml Specimens: None Complications: None Pre-Op/Pre-Procedure Diagnosis: bladder mass Post-Op/Post-Procedur e Diagnosis: * No surgery found * same SIGNATURE: Tierra Caal Jr, MD PATIENT NAME: @patient name@ DATE: October 18, 2023 TIME: @EMILY@ PAGER/CONTACT #: [phone] [facility] 10-18-2023 [facility] Telephone (STEPHEN) ADRIAN APONTE JR. ([id number]) 1970 M Date Time Provider Department 10/18/23 TIERRA CAAL JR During your visit today, we recorded the following information about you: Tierra Caal Jr., MD 10/18/2023 9:18 AM Signed [facility] or 10/18/23 Fu with nm 2-3 weeks Dharmesh Burgess 10/18/2023 10:12 AM Signed Called patient and left vox Patient is scheduled as follows: November 07, 2023 at 8:30am, [place] location--ok'd by [email or web address] Thank you dharmesh Allergies As of Date: 10/18/2023 Noted Allergy Reaction QUININE 01/01/2015 4 - Hives MORPHINE 01/31/2019 9 - Itching Comments: IV burning and itching Date Reviewed: 10/18/2023 Reviewed by: Tierra Caal Jr., MD - Fully Assessed Reason for Visit: Appointment [[id number]] Prescriptions as of 10/18/2023 - tamsulosin (FLOMAX) 0.4 mg Take 1 capsule by mouth daily at bedtime. - oxybutynin XL (DITROPAN XL) 5 mg 24 hr tablet Use daily, or as needed for bladder spasms - dulaglutide (TRULICITY) 4.5 mg/0.5 mL pen injector Inject subcutaneously one time a week. - cyclobenzaprine (FLEXERIL) 10 mg tablet take ONE tablet BY MOUTH UP TO THREE TIMES DAILY, as needed FOR muscle SPASMS - diazePAM (VALIUM) 5 mg tablet Take 5 mg by mouth three times a day as needed. - FLUoxetine (PROZAC) 10 mg capsule Take 1 capsule by mouth once daily. - TRULICITY 3 mg/0.5 mL pen injector Inject subcutaneously one time a week. - atenolol (TENORMIN) 50 mg tablet Take by mouth twice daily. - FLUoxetine HCl 20 mg tablet Take 20 mg by mouth once daily. - varenicline (CHANTIX) 1 mg tablet Take 1 tablet by mouth twice daily. - gabapentin 600 mg Tb24 Take 1 tablet by mouth three times daily with meals. - furosemide (LASIX) 40 mg tablet Take 40 mg by mouth once daily. - metaxalone (SKELAXIN) 800 mg tablet Take 800 mg by mouth three times daily as needed. - losartan (COZAAR) 50 mg tablet Take 50 mg by mouth once daily. - oxyCODONE-acetaminoph en (PERCOCET) 5-325 mg tablet Take 1 tablet by mouth every 6 hours as needed. - albuterol HFA (PROVENTIL HFA, VENTOLIN HFA) 90 mcg/actuation inhaler Inhale 2 Puffs as instructed every 4 hours as needed. - acetaminophen (TYLENOL) 325 mg tablet Take 650 mg by mouth every 6 hours as needed. - XARELTO 20 mg tablet Take 20 mg by mouth once daily. - omeprazole (PRILOSEC) 20 mg capsule Take by mouth twice daily. 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 [*01/01/2015 Presbyopia OU [H52.4] 02/22/2016 Cardiomegaly [I51.7] 08/21/2018 Dyspnea, unspecified [R06.00] 08/21/2018 H/O respiratory system disease [Z87.09] 01/29/2016 02/14/2019 Other chcf (current) drug therapy [Z79.899]01/30/2017 02/14/2019 Sleep apnea [G47.30] 09/12/2018 Anxiety and depression [F41.9, F32.A] 01/30/2017 Cardiac arrest (HCC) [I46.9] 09/18/2018 04/20/2019 Deep venous thrombosis (HCC) [I82.409] 09/12/2018 Gastro-esophageal reflux disease without esopha*01/30/2017 Hypertension [I10] 07/14/2014 Lumbosacral radiculopathy [M54.17] 09/18/2018 Major depressive disorder, single episode, unsp*01/30/2017 Other secondary pulmonary hypertension (HCC) [I*01/30/2017 Intervertebral disc disorder with radiculopathy* 017 Pulmonary embolism (HCC) [I26.99] 03/16/2016 Restrictive lung disease [J98.4] 09/18/2018 02/14/2019 Tobacco dependence in remission [F17.201] 07/14/2014 Tricuspid valve regurgitation [I07.1] 09/18/2018 Type 2 diabetes mellitus (HCC) [E11.9] 08/29/2018 Bilateral leg edema [R60.0] 09/18/2018 Morbidly obese (HCC) [E66.01] 09/18/2018 Malignant neoplasm of lateral wall of bladder (*09/18/2018 Diabetic neuropathy (HCC) [E11.40] 02/14/2019 Obesity, Class III, BMI >= 40 [E66.01] 02/10/2022 Pre-op examination [Z01.818] 10/02/2023 Encounter Status:Closed by TIERRA CAAL on 10/18/23 Normal [facility] GLUCOSE, BLOOD (POC)on 10-17 Glucose [Mass/Vol] 267 mg/dL Abnormal 74 - 99 mg/dL [facility] Comment on above: Location:[place], [address], [place], [facility] The Accu-Chek Inform II glucose meter has not been approved for testing on patients receiving intensive medical intervention or therapy and results from this point of care glucose test should not be used for patient management decisions in these cases. Inaccurate results may also occur from other interfering factors, such as N-acetylcysteine (blood concentrations of greater than 5mg/dL), galactose, extremes of hematocrit (<10 or >65), or high doses of ascorbic acid (vitamin C) greater than 3mg/dL. Consider alternate testing mechanisms (e.g. core lab, blood gas instrument) in the above situations. Interpretation and review of laboratory results Abnormal [facility] Glucose [Mass/Vol] 304 mg/dL Abnormal 74 - 99 mg/dL [facility] Comment on above: Location:[facility], [address] [place], [place], [address] The Accu-Chek Inform II glucose meter has not been approved for testing on patients receiving intensive medical intervention or therapy and results from this point of care glucose test should not be used for patient management decisions in these cases. Inaccurate results may also occur from other interfering factors, such as N-acetylcysteine (blood concentrations of greater than 5mg/dL), galactose, extremes of hematocrit (<10 or >65), or high doses of ascorbic acid (vitamin C) greater than 3mg/dL. Consider alternate testing mechanisms (e.g. core lab, blood gas instrument) in the above situations. Interpretation and review of laboratory results Abnormal [facility] SURGICAL PATHOLOGYon 024 CASE REPORT Normal [facility] Comment on above: Order Comment: Speci men Type: TISSUE SPECIMEN Ordering Facility: [facility] Address: [address] [place] [address] Result Comment: Surg [facility] Pathology Report Case: [id number] Authorizing Provider: Tierra Caal Jr., Collected: 10/18/2023 08:55 AM Ordering Location: [place] [facility] Received: 10/18/2023 11:02 AM Pathologist: Gt Alvarado MD Specimen: Bladder, Transurethral Resection, Bladder Mass Performed By: #### S #### [facility] CLIA [id number] [address] CLINICAL HISTORY Normal [facility] Comment on above: Order Comment: Speci men Type: TISSUE SPECIMEN Ordering Facility: [facility] Address: [address] [place] [address] Result Comment: Pre- op diagnosis: Bladder mass [N32.89] Performed By: #### S #### [facility] CLIA [id number] [address] FINAL DIAGNOSIS Normal [facility] Comment on above: Order Comment: Speci men Type: TISSUE SPECIMEN Ordering Facility: [facility] Address: [address] [place] [address] Result Comment: A. B ladder mass, transurethral resection: - Benign urothelial mucosa with mild chronic inflammation. - Muscularis propria not sampled. Performed By: #### S #### [facility] CLIA [id number] [address] FINAL PERFORMING LAB Normal [facility] Comment on above: Order Comment: Speci men Type: TISSUE SPECIMEN Ordering Facility: [facility] Address: [address] [place] [address] Result Comment: Diag nostic interpretation performed at [facility], [address] [place] [address] CLIA# [id number] [employer]: Jt Arguello M.D. Performed By: #### S #### [facility] CLIA [id number] [address] GROSS DESCRIPTION Normal [facility] Comment on above: Order Comment: Speci men Type: TISSUE SPECIMEN Ordering Facility: [facility] Address: [address] [place] [address] Result Comment: Jose rivera, Transurethral Resection Received in formalin labeled as bladder mass is a ramos, irregularly shaped, rubbery tissue fragment measuring 1 x 0.3 x 0.3 cm. Totally submitted in 1 cassette. Gross examination performed at [facility], [address] [place] [address] CLIA# [id number] RSA October 19, 2023 9:14 AM Performed By: #### S #### [facility] CLIA [id number] [address] [place] [address] Bacteria Ur Culton 4 Bacteria identified Cx Nom (U) CULTURE, URINE: <10,000 CFU/ml Normal [facility] Kristin Normal [facility] Comment on above: Performed By: #### 6 30-4 #### [facility] CLIA [id number] [address] HISTORY PHYSICALon 4 HISTORY PHYSICAL HNO ID: [id number] Author: ANGELITO HAMPTON APRN.CNP Service: ? Author Type: Nurse Practitioner Type: H&P Filed: 10/04/2023 15:56 Note Text: HISTORY AND PHYSICAL EXAMINATION SERVICE DATE: 10/04/2023 SERVICE TIME: 3:48 PM PRIMARY CARE PHYSICIAN: Edin Tomlinson PA-C Assessment Patient has the following medical conditions which may affect caroline-operative course: Pre-op examination Medical conditions which may affect the perioperative course were address in today's visit. 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 On Xarelto - instructed to follow surgeon instructions how to take before the surgery Follows by Pulmonology every year Hypertension Controlled on Losartan and lasix- instructed to hold the dos Atenolol - instructed to take the dos Gastro-esophageal reflux disease without esophagitis Controlled on PPI Sleep apnea Compliant with BiPAP Follows by Pulmonology 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 Clinical Frailty Scale: 3. Well, with treated comorbid disease ARISCAT Score: Age: 51-80 Preoperative SpO2: >=96% Respiratory infection in the last month: No Preoperative anemia: No Surgical incision: peripheral Duration of surgery: <2 hrs Emergency procedure: No ARISCAT Score: 3 ANESTHESIA FINDINGS: Intubation History: No history of difficult intubation. No abnormal airway history Significant Anesthesia Considerations: none Airway History: No history of difficult airway No abnormal airway history I - PHYSICAL EVALUATION AIRWAY Patient intubated: No. DENTAL Dental findings: teeth intact and missing tooth/teeth. II - ANESTHESIA PLAN Anesthetic Plan: general Beta Dylan Monitoring Plan Post Procedure Analgesic Plan Prepared for Surgery: CONSULTS: Patient does not require consults for optimization at this time Planned Anesthetic: general The Following Tests/Procedures Have Been Initiated: No orders of the defined types were placed in this encounter. REASON FOR VISIT: Adrian Aponte Jr. is a 52 year old male who is scheduled for Procedure(s): CYSTOURETHROSCOPY W/FULGURATION AND/OR RESECTION MEDIUM BLADDER TUMOR(S) 2.0 - 5.0 CM W/SALINE BIPOLAR (N/A) INSTILL ANTICARCINOGENIC AGENT IN BLADDER, GEMCITABINE (N/A) at the request of Dr. Tierra Caal Jr. for routine HANDP. My final recommendation will be communicated back to the requesting physician by way of shared medical record or letter. 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 Pulmonary Embolism (Hcc) Tobacco Dependence in Remission Tricuspid Valve Regurgitation Type 2 Diabetes Mellitus (Hcc) Bilateral Leg Edema Morbidly Obese (Hcc) Malignant Neoplasm of Lateral Wall of Bladder (Hcc) Diabetic Neuropathy (Hcc) Obesity, Class III, BMI >= 40 Pre-Op Examination COVID-19 Immunization Status Overdue - Covid-19 Vaccine (3 - Pfizer risk series) Overdue since 02/24/2021 01/27/2021 Imm Admin: COVID-19 original vaccine, age 12+ yr, monovalent (PFIZER-BIONTECH - PURPLE TOP) 01/06/2021 Imm Admin: COVID-19 original vaccine, age 12+ yr, monovalent (PFIZER-BIONTECH - PURPLE TOP) CHIEF COMPLAINT: The reason for this visit is to perform a comprehensive review of the patient's past medical history, assess their current health status and obtain any additional testing required based on anesthesia guidelines. We will also identify any potential anesthesia problems or contraindications to the planned procedure. HPI: Patient is a 52 year old male who presents for pre surgical testing. Patient reports bladder cancer, reports hematuria for 3 years with large blood clots. Reports having cancer removed; monitoring with cytoscopies. Had bladder coyle scraped in the past. Denies hematuria today, reports urgency and frequency After discussing with surgeon, patient agrees to surgical intervention. Risk and benefits discussed by surgeon. Patient denies any other problems or concerns at this time. REVIEW OF SYSTEMS: General: Negative for: fe (more content not included)... Normal [facility] CNOVon 09-19-2023 CNOV Office Visit (UROLMD ) ADRIAN APONTE JR. ([id number]) 1970 M Date Time Provider Department 09/19/23 9:30 AM TIERRA CAAL JR UROLMD During your visit today, we recorded the following information about you: Pulse Respiration Blood pressure Weight 80/minute 14/minute 120/78 180.5 kg Height 1.803 m Tierra Caal Jr., MD 09/19/2023 9:57 AM Signed CYSTOSCOPY PROCEDURE NOTE: Adrian Aponte Jr. is a 52 year old male who presents with follow up bladder tumor for cystoscopy. Pt ID verified with patient: Yes Fire risk assessment done Procedure verified with patient: Yes Procedure confirmed with physician and production support analyst: Yes UNIVERSAL PROTOCOL / SAFETY CHECKLIST Procedure to be Performed: cystoscopy Sign In: A Moment of CARE was completed. Personnel directly involved with the procedure wore the appropriate PPE (Personal Protective Equipment). Patient/Surrogate Stated/Verified: PATIENT VERIFIED(optional for EMERGENT procedures): Patient name, Date of , Relevant allergies, and The intended procedure Time Out Communication: Intended patient and procedure match the source documents. Consent documented and matches the intended procedure. Sign Out: SIGN OUT (optional for EMERGENT procedures): No specimen collected. Tierra Caal Jr, MD Pre procedure dx: bladder cancer Post procedure dx: same A urinalysis was performed revealing no evidence of infection. The benefits, risks, alternatives of the cystoscopy procedure and personnel were discussed with the patient. The verbal consent was obtained and the patient agrees to proceed. Procedure: The patient was placed on the procedure table in the supine position and prepped and draped in the usual sterile fashion. 2% Lidocaine Jelly was placed per urethra as an anesthetic in the standard fashion. Once adequate local anesthesia was achieved, the tip of the flexible cystoscope was carefully placed into the urethra under direct visual guidance. The scope was negotiated through the pendulous urethra to the level of the bulbar urethra with no evidence of stricture. The verumontanum came into view and the scope was negotiated through the prostatic urethra which showed evidence of a patent prostatic urethra. The bladder was entered and careful morales endoscopy was carried out. The posterior, superior and lateral coyle and dome of the bladder were all well visualized and the scope was retroflexed upon itself. The findings were consistent with small recurrence left sie of bladder near UO. At the conclusion of the procedure, the flexible cystoscope was removed atraumatically. The patient tolerated the procedure without complications. Patient was given standard post-procedure instructions, and was directed to complete the course of oral antibiotics and increase oral fluid intake as directed. ASSESSMENT/PLAN: Cystoscopy, turbt, instillation gemcitabine All r/b/a of surgery discussed, infection, bleeding, damage to nearby structures, possibility of hole in bladder, repeat surgery, lower urinary tract symptoms, the possibility of stents,catheterizatio ns, possibility of going home with catheter. , heart attack, stroke, deep vein thrombosis, pulmonary embolus. Patient verbalized understanding and agrees to proceed. MD Kem Esquivel Jr, Gerald A, MA 09/19/2023 10:22 AM Signed CYSTOSCOPY PROCEDURE NOTE: Adrian Aponte Jr. is a 52 year old male who presents with follow up bladder tumor. Pt ID verified with patient: Yes Procedure verified with patient: Yes Procedure confirmed with physician and production support analyst: Yes Sign In History and Physical Exam reviewed and is unchanged. Primary Diagnosis: Malignant Neoplasm of the Bladder and History of Bladder CA Informed Consent Discussed: Yes Sign in Communication: Completed Time Out: Team Confirms the Correct Patient, Correct Procedure; Cystoscopy, Correct Site and Site Marking, Correct Position (if applicable). Affirmation of Time Out: N/A Sign Out: Sign Out Discussion: Completed Physician: Dr. Tierra Caal A urinalysis was performed revealing no evidence of infection. The benefits, risks, alternatives of the cystoscopy procedure and personnel were discussed with the patient. The verbal consent was obtained and the patient agrees to proceed. Prophylaxis with Keflex 500 mg was given to the patient prior to the procedure. Procedure: The patient was placed on the procedure table in the supine position and prepped and draped in the usual sterile fashion. 2% Lidocaine Jelly was placed per urethra as an anesthetic in the standard fashion. Once adequate local anesthesia was achieved, the tip of the flexible cystoscope was carefully placed into the urethra under direct visual guidance. The scope was negotiated through the pendulous urethra to the level of the bulbar u (more content not included)... Normal [facility] UA DIP, URINE (POC)on 2023 BILIRUBIN UA (POCT) Negative Negative [facility] CLARITY UA (POCT) Clear [facility] COLOR UA (POCT) Yellow [facility] GLUCOSE UA (POCT) 250 mg/dL Abnormal Negative mg/dL [facility] Hemoglobin Ql (U) Negative Negative [facility] KETONE UA (POCT) 15 mg/dL Abnormal Negative mg/dL [facility] LEUKOCYTES UA (POCT) Negative Negative [facility] NITRITE UA (POCT) Negative Negative [facility] PH UA (POCT) 6.0 4.5 - 8.0 [facility] Protein Ql (U) Negative Negative mg/dL [facility] SPECIFIC GRAVITY UA (POCT) <=1.005 Abnormal 1.005 - 1.030 [facility] UROBILINOGEN UA (POCT) 0.2 E.U./dL Normal E.U./dL [facility] Laboratory - Hematology and Cell countson 09-12-2023 HbA1c (Bld) [Mass fraction] 9.5 % Abnormal 4.6 - 7.1 % [facility] ADRIAN APONTE JR. ([id number]) 1970 M Date Time Provider Department 04/13/23 1:00 PM NURSE UROL SHAH UROBRITTANY During your visit today, we recorded the following information about you: Zackery Agudelo RN 04/13/2023 1:32 PM Signed BLADDER INSTILLATION Patient ID with two (2) identifiers verified by: Zackery Agudelo Allergies reviewed and updated: Yes Medication ordered for bladder instillation: Gemzar Current pain intensity is: 0 on a 0-10 pain scale. Have you seen any blood in the last 24 hours: No Have you had a temperature greater than 101F in the last 24 hours: No Do you have foul smelling urine or severe burning/urgency that has worsened since the last bladder instillation treatment: No No, Proceed with BCG Any concerns about safety in the home/falls: Not at risk for falls Start Date: 03/30/2023 Treatment number: Maintenance dose 3 of 3 Retention Time Last RX: 90 minutes Symptoms Post Last RX: None Catheter Used: 16 fr. coude Gemzar instilled at: 1300 Drained at: Home Patient tolerated the procedure well. Zackery Maillie RN Allergies As of Date: 04/13/2023 Noted Allergy Reaction QUININE 01/01/2015 4 - Hives MORPHINE 01/31/2019 9 - Itching Comments: IV burning and itching Date Reviewed: 04/13/2023 Reviewed by: Zackery Agudelo RN - Fully Assessed Reason for Visit: Bladder Cancer [515] Visit Diagnosis:Malignant neoplasm of urinary bladder, unspecified site (HCC) [C67.9] Order(s):[] gemcitabine 1,000 mg intravesical (GEMZAR)Disp: Rfl: [] lidocaine urojet 2 % 11 mL topical gel (GLYDO)Disp: Rfl: Prescriptions as of 04/13/2023 - ondansetron (ZOFRAN) 4 mg tablet Take 1 tablet by mouth every 8 hours as needed. - oxybutynin XL (DITROPAN XL) 5 mg 24 hr tablet Use daily, or as needed for bladder spasms - tamsulosin (FLOMAX) 0.4 mg Take 1 capsule by mouth daily at bedtime. - TRULICITY 3 mg/0.5 mL pen injector Inject subcutaneously one time a week. - atenolol (TENORMIN) 50 mg tablet Take by mouth twice daily. - FLUoxetine HCl 20 mg tablet Take 20 mg by mouth once daily. - varenicline (CHANTIX) 1 mg tablet Take 1 tablet by mouth twice daily. - gabapentin 600 mg Tb24 Take 1 tablet by mouth three times daily with meals. - furosemide (LASIX) 40 mg tablet Take 40 mg by mouth once daily. - metaxalone (SKELAXIN) 800 mg tablet Take 800 mg by mouth three times daily as needed. - losartan (COZAAR) 50 mg tablet Take 50 mg by mouth once daily. - oxyCODONE-acetaminoph en (PERCOCET) 5-325 mg tablet Take 1 tablet by mouth every 6 hours as needed. - albuterol HFA (PROVENTIL HFA, VENTOLIN HFA) 90 mcg/actuation inhaler Inhale 2 Puffs as instructed every 4 hours as needed. - acetaminophen (TYLENOL) 325 mg tablet Take 650 mg by mouth every 6 hours as needed. - XARELTO 20 mg tablet Take 20 mg by mouth once daily. - omeprazole (PRILOSEC) 20 mg capsule Take by mouth twice daily. Problem List As Of Date 04/13/2023 Noted Resolved Myopia [H52.10] 01/01/2015 Multiple defects of retina without detachment [*01/01/2015 Presbyopia OU [H52.4] 02/22/2016 Cardiomegaly [I51.7] 08/21/2018 Dyspnea, unspecified [R06.00] 08/21/2018 H/O respiratory system disease [Z87.09] 01/29/2016 02/14/2019 Other terminal operator (current) drug therapy [Z79.899]01/30/2017 02/14/2019 Sleep apnea [G47.30] 09/12/2018 Anxiety and depression [F41.9, F32.A] 01/30/2017 Cardiac arrest (HCC) [I46.9] 09/18/2018 04/20/2019 Deep venous thrombosis (HCC) [I82.409] 09/12/2018 Gastro-esophageal reflux disease without esopha*01/30/2017 Hypertension [I10] 07/14/2014 Lumbosacral radiculopathy [M54.17] 09/18/2018 Major depressive disorder, single episode, unsp*01/30/2017 Other secondary pulmonary hypertension (HCC) [I*01/30/2017 Intervertebral disc disorder with radiculopathy* 017 Pulmonary embolism (HCC) [I26.99] 03/16/2016 Restrictive lung disease [J98.4] 09/18/2018 02/14/2019 Tobacco dependence in remission [F17.201] 07/14/2014 Tricuspid valve regurgitation [I07.1] 09/18/2018 Type 2 diabetes mellitus (HCC) [E11.9] 08/29/2018 Bilateral leg edema [R60.0] 09/18/2018 Morbidly obese (HCC) [E66.01] 09/18/2018 Malignant neoplasm of lateral wall of bladder (*09/18/2018 Diabetic neuropathy (HCC) [E11.40] 02/14/2019 Obesity, Class III, BMI >= 40 [E66.01] 02/10/2022 Visit Notes: >> Zackery Agudelo RN Margie Apr 13, 2023 1:17 PM Status: Signed BLADDER INSTILLATION Patient ID with two (2) identifiers verified by: Zackery Agudelo Allergies reviewed and updated: Yes Medication ordered for bladder instillation: Gemzar Current pain intensity is: 0 on a 0-10 pain scale. Have you seen any blood in the last 24 hours: No Have you had a temperature greater than 101F in the last 24 hours: No Do you have foul smelling urine or severe burning/urgency that has worsened since the last bladder ins (more content not included)... Normal [facility] CNNURSEon 04-06-2023 CNNURSE Nurse Visit (UROLMD) ADRIAN APONTE JR. ([id number]) 1970 M Date Time Provider Department 04/06/23 2:00 PM NURSE MAURILIOL JERRY UROLISAD During your visit today, we recorded the following information about you: Gabrielle Palma RN 04/06/2023 4:33 PM Signed BLADDER INSTILLATION Patient ID with two (2) identifiers verified by: Yes Allergies reviewed and updated: Yes Medication ordered for bladder instillation: Gemzar Current pain intensity is: 0 on a 0-10 pain scale. Have you seen any blood in the last 24 hours: No Have you had a temperature greater than 101F in the last 24 hours: No Do you have foul smelling urine or severe burning/urgency that has worsened since the last bladder instillation treatment: No No, Proceed with BCG/Gemzar Any concerns about safety in the home/falls: Not at risk for falls Start Date: 03-30-2023 Treatment number: Maintenance dose 2 of 3 Retention Time Last RX: 90 minutes Symptoms Post Last RX: None Catheter Used: 16 fr. coude Gemzar instilled at: 1040 Drained at: 1210 Residual TX: Yes 15 cc. Return to Clinic on : 1 week Patient tolerated treatment well. Patient presents for 2nd Gemzar treatment. Prepped with betadine and mixed by pharmacy instilled in the bladder via #14 straight catheter without difficulty. Patient tolerated well. Patient instructed not to void for 90 minutes. Printed instructions given to patient. Gabrielle Palma RN Allergies As of Date: 04/06/2023 Noted Allergy Reaction QUININE 01/01/2015 4 - Hives MORPHINE 01/31/2019 9 - Itching Comments: IV burning and itching Date Reviewed: 04/06/2023 Reviewed by: Gabrielle Palma RN - Fully Assessed Reason for Visit: Nurse Visit [792] Visit Diagnosis:Malignant neoplasm of urinary bladder, unspecified site (HCC) [C67.9] Order(s):[] gemcitabine 1,000 mg intravesical (GEMZAR)Disp: Rfl: [] lidocaine urojet 2 % 11 mL topical gel (GLYDO)Disp: Rfl: Prescriptions as of 04/06/2023 - ondansetron (ZOFRAN) 4 mg tablet Take 1 tablet by mouth every 8 hours as needed. - oxybutynin XL (DITROPAN XL) 5 mg 24 hr tablet Use daily, or as needed for bladder spasms - tamsulosin (FLOMAX) 0.4 mg Take 1 capsule by mouth daily at bedtime. - TRULICITY 3 mg/0.5 mL pen injector Inject subcutaneously one time a week. - atenolol (TENORMIN) 50 mg tablet Take by mouth twice daily. - FLUoxetine HCl 20 mg tablet Take 20 mg by mouth once daily. - varenicline (CHANTIX) 1 mg tablet Take 1 tablet by mouth twice daily. - gabapentin 600 mg Tb24 Take 1 tablet by mouth three times daily with meals. - furosemide (LASIX) 40 mg tablet Take 40 mg by mouth once daily. - metaxalone (SKELAXIN) 800 mg tablet Take 800 mg by mouth three times daily as needed. - losartan (COZAAR) 50 mg tablet Take 50 mg by mouth once daily. - oxyCODONE-acetaminoph en (PERCOCET) 5-325 mg tablet Take 1 tablet by mouth every 6 hours as needed. - albuterol HFA (PROVENTIL HFA, VENTOLIN HFA) 90 mcg/actuation inhaler Inhale 2 Puffs as instructed every 4 hours as needed. - acetaminophen (TYLENOL) 325 mg tablet Take 650 mg by mouth every 6 hours as needed. - XARELTO 20 mg tablet Take 20 mg by mouth once daily. - omeprazole (PRILOSEC) 20 mg capsule Take by mouth twice daily. Problem List As Of Date 04/06/2023 Noted Resolved Myopia [H52.10] 01/01/2015 Multiple defects of retina without detachment [*01/01/2015 Presbyopia OU [H52.4] 02/22/2016 Cardiomegaly [I51.7] 08/21/2018 Dyspnea, unspecified [R06.00] 08/21/2018 H/O respiratory system disease [Z87.09] 01/29/2016 02/14/2019 Other chcf (current) drug therapy [Z79.899]01/30/2017 02/14/2019 Sleep apnea [G47.30] 09/12/2018 Anxiety and depression [F41.9, F32.A] 01/30/2017 Cardiac arrest (HCC) [I46.9] 09/18/2018 04/20/2019 Deep venous thrombosis (HCC) [I82.409] 09/12/2018 Gastro-esophageal reflux disease without esopha*01/30/2017 Hypertension [I10] 07/14/2014 Lumbosacral radiculopathy [M54.17] 09/18/2018 Major depressive disorder, single episode, unsp*01/30/2017 Other secondary pulmonary hypertension (HCC) [I*01/30/2017 Intervertebral disc disorder with radiculopathy* 017 Pulmonary embolism (HCC) [I26.99] 03/16/2016 Restrictive lung disease [J98.4] 09/18/2018 02/14/2019 Tobacco dependence in remission [F17.201] 07/14/2014 Tricuspid valve regurgitation [I07.1] 09/18/2018 Type 2 diabetes mellitus (HCC) [E11.9] 08/29/2018 Bilateral leg edema [R60.0] 09/18/2018 Morbidly obese (HCC) [E66.01] 09/18/2018 Malignant neoplasm of lateral wall of bladder (*09/18/2018 Diabetic neuropathy (HCC) [E11.40] 02/14/2019 Obesity, Class III, BMI >= 40 [E66.01] 02/10/2022 Visit Notes: >> Gabrielle Palma RN [facility] Apr 06, 2023 4:16 PM Status: Signed BLADDER INSTILLATION Patient ID with two (2) identifiers verified by: Yes Allergies reviewed and updated: Yes Medication or (more content not included)... Normal [facility] TSH W/REFLEX TO FT4on 2022 TSH W/REFLEX TO FT4 1.52 mIU/L Normal 0.40-4.50 [facility] Comment on above: Performed By: #### [id number] #### [facility] [address], [address] [place] [address] Husbandry Person: Jose Alonso MD Laboratory - Hematology and Cell countson 04-05-2023 HbA1c (Bld) [Mass fraction] 6.3 % Normal 4.6 - 7.1 % [employer]. No Panel Informationon 04-05 TSH W/REFLEX TO FT4 1.52 {mIU/L} Normal 0.40 - 4 .50 {mIU/L} [employer] 1.52 {mIU/L} Normal 0.40 - 4.50 {mIU/L} [employer]; [employer] CNNURSEon 03-30-2023 [facility] Nurse Visit (UROLMD) ADRIAN APONTE JR. ([id number]) 1970 M Date Time Provider Department 03/30/23 10:30 AM NURSE UROL SHAH UROLMD During your visit today, we recorded the following information about you: Gabrielle Palma RN 03/30/2023 1:46 PM Signed BLADDER INSTILLATION Patient ID with two (2) identifiers verified by: yes Allergies reviewed and updated: Yes Medication ordered for bladder instillation: Gemzar Current pain intensity is: 0 on a 0-10 pain scale. Have you seen any blood in the last 24 hours: No Have you had a temperature greater than 101F in the last 24 hours: No Do you have foul smelling urine or severe burning/urgency that has worsened since the last bladder instillation treatment: No No, Proceed with BCG/Gemzar Any concerns about safety in the home/falls: Not at risk for falls Start Date: 03-30-2023 Treatment number: Maintenance dose 1 of 3 Retention Time Last RX: 90 minutes Symptoms Post Last RX: None Catheter Used: 16 fr. red mariangel Gemzar instilled at: 1045 Drained at: 1215 Residual TX: Yes 50 cc. Return to Clinic on : 1 week Patient tolerated treatment well. Patient presents for 1st Gemzar treatment. Prepped with betadine and mixed by pharmacy instilled in the bladder via #16 Coude' red Wall catheter without difficulty. Patient tolerated well. Patient instructed not to void for 90 minutes. Printed instructions given to patient. Gabrielle Palma RN Allergies As of Date: 03/30/2023 Noted Allergy Reaction QUININE 01/01/2015 4 - Hives MORPHINE 01/31/2019 9 - Itching Comments: IV burning and itching Date Reviewed: 03/30/2023 Reviewed by: Gabrielle Palma RN - Fully Assessed Reason for Visit: Nurse Visit [792] Visit Diagnosis:Malignant neoplasm of urinary bladder, unspecified site (HCC) [C67.9] Order(s):[] gemcitabine 1,000 mg intravesical (GEMZAR)Disp: Rfl: [] lidocaine urojet 2 % 11 mL topical gel (GLYDO)Disp: Rfl: Prescriptions as of 03/30/2023 - oxybutynin XL (DITROPAN XL) 5 mg 24 hr tablet Use daily, or as needed for bladder spasms - tamsulosin (FLOMAX) 0.4 mg Take 1 capsule by mouth daily at bedtime. - TRULICITY 3 mg/0.5 mL pen injector Inject subcutaneously one time a week. - atenolol (TENORMIN) 50 mg tablet Take by mouth twice daily. - FLUoxetine HCl 20 mg tablet Take 20 mg by mouth once daily. - varenicline (CHANTIX) 1 mg tablet Take 1 tablet by mouth twice daily. - gabapentin 600 mg Tb24 Take 1 tablet by mouth three times daily with meals. - furosemide (LASIX) 40 mg tablet Take 40 mg by mouth once daily. - metaxalone (SKELAXIN) 800 mg tablet Take 800 mg by mouth three times daily as needed. - losartan (COZAAR) 50 mg tablet Take 50 mg by mouth once daily. - oxyCODONE-acetaminoph en (PERCOCET) 5-325 mg tablet Take 1 tablet by mouth every 6 hours as needed. - albuterol HFA (PROVENTIL HFA, VENTOLIN HFA) 90 mcg/actuation inhaler Inhale 2 Puffs as instructed every 4 hours as needed. - acetaminophen (TYLENOL) 325 mg tablet Take 650 mg by mouth every 6 hours as needed. - XARELTO 20 mg tablet Take 20 mg by mouth once daily. - omeprazole (PRILOSEC) 20 mg capsule Take by mouth twice daily. Problem List As Of Date 03/30/2023 Noted Resolved Myopia [H52.10] 01/01/2015 Multiple defects of retina without detachment [*01/01/2015 Presbyopia OU [H52.4] 02/22/2016 Cardiomegaly [I51.7] 08/21/2018 Dyspnea, unspecified [R06.00] 08/21/2018 H/O respiratory system disease [Z87.09] 01/29/2016 02/14/2019 Other terminal operator (current) drug therapy [Z79.899]01/30/2017 02/14/2019 Sleep apnea [G47.30] 09/12/2018 Anxiety and depression [F41.9, F32.A] 01/30/2017 Cardiac arrest (HCC) [I46.9] 09/18/2018 04/20/2019 Deep venous thrombosis (HCC) [I82.409] 09/12/2018 Gastro-esophageal reflux disease without esopha*01/30/2017 Hypertension [I10] 07/14/2014 Lumbosacral radiculopathy [M54.17] 09/18/2018 Major depressive disorder, single episode, unsp*01/30/2017 Other secondary pulmonary hypertension (HCC) [I*01/30/2017 Intervertebral disc disorder with radiculopathy* 017 Pulmonary embolism (HCC) [I26.99] 03/16/2016 Restrictive lung disease [J98.4] 09/18/2018 02/14/2019 Tobacco dependence in remission [F17.201] 07/14/2014 Tricuspid valve regurgitation [I07.1] 09/18/2018 Type 2 diabetes mellitus (HCC) [E11.9] 08/29/2018 Bilateral leg edema [R60.0] 09/18/2018 Morbidly obese (HCC) [E66.01] 09/18/2018 Malignant neoplasm of lateral wall of bladder (*09/18/2018 Diabetic neuropathy (HCC) [E11.40] 02/14/2019 Obesity, Class III, BMI >= 40 [E66.01] 02/10/2022 Visit Notes: >> Gabrielle Palma RN Margie Mar 30, 2023 1:38 PM Status: Signed BLADDER INSTILLATION Patient ID with two (2) identifiers verified by: yes Allergies reviewed and updated: Yes Medication ordered for bladder instillation: Gemzar Current pain intensity is: 0 o (more content not included)... Normal [facility] UA DIP, URINE (POC)on 2022 BILIRUBIN UA (POCT) Negative Negative [facility] CLARITY UA (POCT) Clear [facility] COLOR UA (POCT) Yellow [facility] GLUCOSE UA (POCT) Negative Negative mg/dL [facility] Hemoglobin Ql (U) Negative Negative [facility] KETONE UA (POCT) Negative Negative mg/dL [facility] LEUKOCYTES UA (POCT) Negative Negative [facility] NITRITE UA (POCT) Negative Negative [facility] PH UA (POCT) 5.5 4.5 - 8.0 [facility] Protein Ql (U) Negative Negative mg/dL [facility] SPECIFIC GRAVITY UA (POCT) 1.020 1.005 - 1.030 [facility] UROBILINOGEN UA (POCT) 0.2 E.U./dL Normal E.U./dL [facility] PT Progress Noteon 3 PT Progress Note Therapy Diagnosis Assessed Chronic right shoulder pain (719.41,338.29) (M25.511,G89.29) Impingement syndrome, shoulder, left (726.2) (M75.42) Arthritis of left shoulder region (716.91) (M19.012) Other synovitis and tenosynovitis, right shoulder (726.10) (M65.811) Plan Goals: Goals set and discussed today. By discharge ADRIAN APONTE will achieve the following goals: Pt will demo and report compliance with HEP in order to augment POC goals and progression toward independence with symptom management for better outcomes once D/C from POC. , by week 2, goal met Strength: Pt will demo improved MMT by >/= 1 point on 0-5 point scale in BUE's for improved strength and stability, and improved ease with lifting, carrying, and proper mechanics with ADL?s AND IADL?s. , goal partially met QUICKDASH, Pt will report subjective improvement with score on QUICKDASH improved by >/= 5 points for return to PLOF, improved QOL, and improved ease with ADL?s AND IADL?s. , goal partially met Planned interventions include: cryotherapy, dry needling, education/instruction , electrical stimulation, home program, hot pack, kinesiotaping, manual therapy, self care/home management, therapeutic activities, therapeutic exercises, ultrasound, vasopneumatic device, vasopneumatic device w/ cold and IASTM/CUPPING . Focus on stability with decreased repetitive movement; CKC positions on elevated plinth as able; TDN and IASTM; KT tape;. Frequency and duration: 2 time(s) a week, for 4 weeks, for 8 visits. Potential to achieve rehab goals is fair: Plan to continue with skilled PT but decrease to 1xweek to wean to HEP. DT Progress with scapular stability and CKC exercises as able to progress towards independence. Progress with POC, as tolerated. Monitor home program. Assessment Patient identified by name and date of . Pt reassessed this date by supervising PT with improvements noted in BUE shld AROM as well as improved MMT in BUE's in all directions with overal improved pain. Pt is making goal-oriented progress but is still functionally limited with prolonged use of BUE's for ADL's and IADL's. Pt responds well to addition of TDN to manual techniques, with improved soft tissue mobility as well as improved posture. pt has maintained good compliance with HEP up to this point as well. Response to treatment: decreased pain, improved strength and decreased muscle guarding. Patient was able to complete today's treatment with some difficulty. Reason For Visit Initial Evaluation . Right AND Left Shoulder pain. Referred by: Dr Caruso Adult Risk Screening There are no spiritual/cultural practices/values/need s that are important to know Initial Fall Risk Screening: ADRIAN has not fallen in the last 6 months. ADRIAN does not have a fear of falling. He does not need assistance with sitting, standing or walking. Does not need assistance walking in his home. He does not need assistance in an unfamiliar setting. The patient is not using an assistive device. Pain Scale: On a scale of 0 to 10, the patient rates the pain at 3. Please identify location of pain: Left shoulder > Right shoulder. Pain Quality: aching, dull and sharp. The pain makes it hard for the patient to do these things: sleep, relationships with family or friends and self-care (bathing, dressing, eating). Living Will. Living Will: Living will on file. Healthcare POA: Health care proxy on file. Declaration of Mental Health Treatment: No mental health treatment on file. Domestic Violence Screen: Does not feel threatened or abused physically, emotionally or sexually. Do you feel UNSAFE? The patient feels safe in the home. Depression/Suicide Screening: During the past 2 weeks, the patient has not felt down, depressed or hopeless. During the past 2 weeks, the patient has not felt little interest or pleasure in doing things. Insurance Insurance reviewed Visit number: 8 Authorization not required after evaluation POC: 8 Medicare 15 Supervising PT: Jessica Garcia PT, DPT, Cert DN Subjective Patient reports:. Pt notes he felt better after his last session with the addition of the dry needling. Notes his movement is better since last session. Home program performing as directed: Yes. Precautions: Fall Risk: none Objective Ortho Shoulder AROM: RUE/LUE Flex: 128 P!/90 -->150/130 ABD: 120/105 --> 160/150 ER: T1/lateral neck--> T3/Cervical spine IR: to Lateral hip/to Lateral hip -->to L1/to L1 MMT: (RUE/LUE) arms at side Shld Flex: 3+/3+ -->4/4 Shld ABD: 3+/3+ -->4/4 Shld IR: 3+/3+-->4/4 Shld ER: 3+/3+--> P! . Treatment Time in clinic started at 0930 Time in clinic ended at 1020 Total time in clinic is 50 minutes. Total timed code time is 48 minutes. Therapeutic exercise (19622): timed minutes 30, units 2 . scap retraction x 10 x5? UBE 3? fwd 3? bwd Kathy 3' flex T-band IR/ER Blue band 2 x 10 Resisted rows Bruning tube 2 x 10 Resisted e (more content not included)... Normal [facility] Therapy Re-eval Noteon 02-24 Therapy Re-eval Note Therapy Diagnosis Assessed 1. Chronic right shoulder pain (719.41,338.29) (M25.511,G89.29) 2. Impingement syndrome, shoulder, left (726.2) (M75.42) 3. Arthritis of left shoulder region (716.91) (M19.012) 4. Other synovitis and tenosynovitis, right shoulder (726.10) (M65.811) Plan Goals: Goals set and discussed today. By discharge ADRIAN APONTE will achieve the following goals: Pt will demo and report compliance with HEP in order to augment POC goals and progression toward independence with symptom management for better outcomes once D/C from POC. , by week 2, goal met Strength: Pt will demo improved MMT by >/= 1 point on 0-5 point scale in BUE's for improved strength and stability, and improved ease with lifting, carrying, and proper mechanics with ADL?s AND IADL?s. , goal partially met QUICKDASH, Pt will report subjective improvement with score on QUICKDASH improved by >/= 5 points for return to PLOF, improved QOL, and improved ease with ADL?s AND IADL?s. , goal partially met Planned interventions include: cryotherapy, dry needling, education/instruction , electrical stimulation, home program, hot pack, kinesiotaping, manual therapy, self care/home management, therapeutic activities, therapeutic exercises, ultrasound, vasopneumatic device, vasopneumatic device w/ cold and IASTM/CUPPING . Focus on stability with decreased repetitive movement; CKC positions on elevated plinth as able; TDN and IASTM; KT tape;. Frequency and duration: 2 time(s) a week, for 4 weeks, for 8 visits. Potential to achieve rehab goals is fair: Plan to continue with skilled PT but decrease to 1xweek to wean to HEP. DT Progress with scapular stability and CKC exercises as able to progress towards independence. Progress with POC, as tolerated. Monitor home program. Assessment Patient identified by name and date of . Pt reassessed this date by supervising PT with improvements noted in BUE shld AROM as well as improved MMT in BUE's in all directions with overal improved pain. Pt is making goal-oriented progress but is still functionally limited with prolonged use of BUE's for ADL's and IADL's. Pt responds well to addition of TDN to manual techniques, with improved soft tissue mobility as well as improved posture. pt has maintained good compliance with HEP up to this point as well. Response to treatment: decreased pain, improved strength and decreased muscle guarding. Patient was able to complete today's treatment with some difficulty. Reason For Visit Reason for Visit_UH: Initial Evaluation . Right AND Left Shoulder pain. Referred by: Dr Caruso Adult Risk Screening There are no spiritual/cultural practices/values/need s that are important to know Initial Fall Risk Screening: ADRIAN has not fallen in the last 6 months. ADRIAN does not have a fear of falling. He does not need assistance with sitting, standing or walking. Does not need assistance walking in his home. He does not need assistance in an unfamiliar setting. The patient is not using an assistive device. Pain Scale: On a scale of 0 to 10, the patient rates the pain at 3. Please identify location of pain: Left shoulder > Right shoulder. Pain Quality: aching, dull and sharp. The pain makes it hard for the patient to do these things: sleep, relationships with family or friends and self-care (bathing, dressing, eating). Living Will. Living Will: Living will on file. Healthcare POA: Health care proxy on file. Declaration of Mental Health Treatment: No mental health treatment on file. Domestic Violence Screen: Does not feel threatened or abused physically, emotionally or sexually. Do you feel UNSAFE? The patient feels safe in the home. Depression/Suicide Screening: During the past 2 weeks, the patient has not felt down, depressed or hopeless. During the past 2 weeks, the patient has not felt little interest or pleasure in doing things. Insurance Insurance reviewed Visit number: 8 Authorization not required after evaluation POC: 8 Medicare 15 Supervising PT: Jessica Garcia PT, DPT, Cert DN Subjective Patient reports:. Pt notes he felt better after his last session with the addition of the dry needling. Notes his movement is better since last session. Home program performing as directed: Yes. Precautions: Fall Risk: none Objective Ortho Shoulder AROM: RUE/LUE Flex: 128 P!/90 -->150/130 ABD: 120/105 --> 160/150 ER: T1/lateral neck--> T3/Cervical spine IR: to Lateral hip/to Lateral hip -->to L1/to L1 MMT: (RUE/LUE) arms at side Shld Flex: 3+/3+ -->4/4 Shld ABD: 3+/3+ -->4/4 Shld IR: 3+/3+-->4/4 Shld ER: 3+/3+--> P! . Treatment Time in clinic started at 0930 Time in clinic ended at 1020 Total time in clinic is 50 minutes. Total timed code time is 48 minutes. Therapeutic exercise (23557): timed minutes 30, units 2 . scap retraction x 10 x5? UBE 3? fwd 3? bwd Kathy 3' flex T-band IR/ER Blue band 2 x 10 Resisted (more content not included)... Normal [facility] PT Progress Noteon 3 PT Progress Note Therapy Diagnosis Assessed Chronic left shoulder pain (719.41,338.29) (M25.512,G89.29) Chronic right shoulder pain (719.41,338.29) (M25.511,G89.29) Strain of tendon of left rotator cuff, subsequent encounter (V58.89,840.4) (S46.012D) Strain of musc/tend the rotator cuff of right shoulder, subs (V58.89,840.9) (S46.011D) Other synovitis and tenosynovitis, right shoulder (726.10) (M65.811) Arthritis of left shoulder region (716.91) (M19.012) Arthritis of right shoulder region (716.91) (M19.011) Impingement syndrome, shoulder, left (726.2) (M75.42) Plan Goals: Goals set and discussed today. By discharge ADRIAN APONTE will achieve the following goals: Pt will demo and report compliance with HEP in order to augment POC goals and progression toward independence with symptom management for better outcomes once D/C from POC. , by week 2 Strength: Pt will demo improved MMT by >/= 1 point on 0-5 point scale in BUE's for improved strength and stability, and improved ease with lifting, carrying, and proper mechanics with ADL?s AND IADL?s. QUICKDASH, Pt will report subjective improvement with score on QUICKDASH improved by >/= 5 points for return to PLOF, improved QOL, and improved ease with ADL?s AND IADL?s. Planned interventions include: cryotherapy, dry needling, education/instruction , electrical stimulation, home program, hot pack, kinesiotaping, manual therapy, self care/home management, therapeutic activities, therapeutic exercises, ultrasound, vasopneumatic device, vasopneumatic device w/ cold and IASTM/CUPPING . Focus on stability with decreased repetitive movement; CKC positions on elevated plinth as able; TDN and IASTM; KT tape;. Frequency and duration: 2 time(s) a week, for 4 weeks, for 8 visits. Potential to achieve rehab goals is fair: Plan to continue with progression of postural and shoulder strength in functional planes as able. JA . Progress with POC, as tolerated. Assessment Patient identified by name and date of . Able to progress resistance with PRE's this date. Added ball on wall for improved ROM and eccentric shoulder strength. Reapplied KT tape this date with use of spray per patient request. Reminded patient to remove at first sign of any irritation. Improved eccentric control with use of resistance band throughout PRE's. Continues to present with myofascial restrictions along B/L UT and supraspinatus regions; L > R with continued need for IASTM. Progressed HEP this date. Response to treatment: decreased pain, improved strength and decreased muscle guarding. Patient was able to complete today's treatment with some difficulty. Reason For Visit Initial Evaluation . Right AND Left Shoulder pain. Referred by: Dr Caruso Adult Risk Screening There are no spiritual/cultural practices/values/need s that are important to know Initial Fall Risk Screening: ADRIAN has not fallen in the last 6 months. ADRIAN does not have a fear of falling. He does not need assistance with sitting, standing or walking. Does not need assistance walking in his home. He does not need assistance in an unfamiliar setting. The patient is not using an assistive device. Please identify location of pain: Left shoulder > Right shoulder. Pain Quality: aching, dull and sharp. The pain makes it hard for the patient to do these things: sleep, relationships with family or friends and self-care (bathing, dressing, eating). Living Will. Living Will: Living will on file. Healthcare POA: Health care proxy on file. Declaration of Mental Health Treatment: No mental health treatment on file. Domestic Violence Screen: Does not feel threatened or abused physically, emotionally or sexually. Do you feel UNSAFE? The patient feels safe in the home. Depression/Suicide Screening: During the past 2 weeks, the patient has not felt down, depressed or hopeless. During the past 2 weeks, the patient has not felt little interest or pleasure in doing things. Insurance Insurance reviewed Visit number: 5 Authorization not required after evaluation POC: 2/ Medicare Supervising PT: Jessica Garcia PT, DPT, Nae PEREZ PT Dx: Subjective Patient reports:. Patient reports pain is approx 4/10 B/L again this date. Notes that the KT tape did not last as long last visit. States that he is able to reach better when in the shower. Opening a jar is getting easier. Home program performing as directed: Yes. Precautions: Fall Risk: none Treatment Time in clinic started at 10:00 Time in clinic ended at 10:45 Total time in clinic is 45 minutes. Total timed code time is 44 minutes. Therapeutic exercise (07799): timed minutes 32, units 2 . scap retraction x 10 x5? UBE 3? fwd 3? bwd Kathy 3' flex T-band IR/ER Blue band (P to active and resistance) Resisted rows Bruning tube 2 x 10 (P) Resisted extension Bruning tube (P) Ball on wall 2 x 10 (N) - up/down - H ADD,H ABD - CW/CCW Supine Rhythx colette Stabilizati (more content not included)... Normal [facility] PT Progress Noteon 3 PT Progress Note Therapy Diagnosis Assessed Chronic right shoulder pain (719.41,338.29) (M25.511,G89.29) Chronic bilateral low back pain with bilateral sciatica (724.2,724.3,338.29) (M54.42,M54.41,G89.29 ) Strain of musc/tend the rotator cuff of right shoulder, subs (V58.89,840.9) (S46.011D) Other synovitis and tenosynovitis, right shoulder (726.10) (M65.811) Arthritis of right shoulder region (716.91) (M19.011) Impingement syndrome, shoulder, left (726.2) (M75.42) Plan Goals: Goals set and discussed today. By discharge ADRIAN APONTE will achieve the following goals: Pt will demo and report compliance with HEP in order to augment POC goals and progression toward independence with symptom management for better outcomes once D/C from POC. , by week 2 Strength: Pt will demo improved MMT by >/= 1 point on 0-5 point scale in BUE's for improved strength and stability, and improved ease with lifting, carrying, and proper mechanics with ADL?s AND IADL?s. QUICKDASH, Pt will report subjective improvement with score on QUICKDASH improved by >/= 5 points for return to PLOF, improved QOL, and improved ease with ADL?s AND IADL?s. Planned interventions include: cryotherapy, dry needling, education/instruction , electrical stimulation, home program, hot pack, kinesiotaping, manual therapy, self care/home management, therapeutic activities, therapeutic exercises, ultrasound, vasopneumatic device, vasopneumatic device w/ cold and IASTM/CUPPING . Focus on stability with decreased repetitive movement; CKC positions on elevated plinth as able; TDN and IASTM; KT tape;. Frequency and duration: 2 time(s) a week, for 4 weeks, for 8 visits. Potential to achieve rehab goals is fair: Plan to continue with postural strength progression and IASTM for pain relief and improved mobility. Check skint d/t retaping with KT tape this date. JA . Progress with POC, as tolerated. Assessment Patient identified by name and date of . Completed IASTM this date to B/L UT d/t tightness. Re-applied KT tape this date with specific instructions to remove if any irritation starts to present. Patient and verbalized their understanding. Fatigues quickly with PRE's. Reason For Visit Initial Evaluation . Right AND Left Shoulder pain. Referred by: Dr Caruso Adult Risk Screening There are no spiritual/cultural practices/values/need s that are important to know Initial Fall Risk Screening: ADRIAN has not fallen in the last 6 months. ADRIAN does not have a fear of falling. He does not need assistance with sitting, standing or walking. Does not need assistance walking in his home. He does not need assistance in an unfamiliar setting. The patient is not using an assistive device. Please identify location of pain: Left shoulder > Right shoulder. Pain Quality: aching, dull and sharp. The pain makes it hard for the patient to do these things: sleep, relationships with family or friends and self-care (bathing, dressing, eating). Living Will. Living Will: Living will on file. Healthcare POA: Health care proxy on file. Declaration of Mental Health Treatment: No mental health treatment on file. Domestic Violence Screen: Does not feel threatened or abused physically, emotionally or sexually. Do you feel UNSAFE? The patient feels safe in the home. Depression/Suicide Screening: During the past 2 weeks, the patient has not felt down, depressed or hopeless. During the past 2 weeks, the patient has not felt little interest or pleasure in doing things. Insurance Insurance reviewed Visit number: 4 Authorization not required after evaluation POC: 2/ Medicare Supervising PT: Jessica Garcia PT, DPT, Nae DN PT Dx: Subjective Patient reports:. Patient reports pain is approx 4/10 B/L. L is more sore than the R. States he was making pulled pork yesterday. Notes that his legs are sore today. Home program performing as directed: Yes. Precautions: Fall Risk: none Treatment Time in clinic started at 10:00 Time in clinic ended at 10:45 Total time in clinic is 45 minutes. Total timed code time is 44 minutes. Therapeutic exercise (71268): timed minutes 32, units 2 . scap retraction x 10 x5? UBE 3? fwd 3? bwd Kathy 3' flex T-band walk outs 2 step green band Resisted rows Purple tube 2 x 10 (N) Resisted extension purple tube Supine Rhythmic Stabilization at 90 shld flex 3 x 20? (N) CKC Weight Shifts B/L 2 x 10 . Manual Therapy (90343): timed minutes 12, units 1 . STM to Left supraspinatus, UT, LS KT Tape for scap retraction/depression , AC joint space correction to L GH joint (N) IASTM (N) TDN (A) . 'Scores and Scales' Signatures Electronically signed by : Lydia Lang PTA; Feb 08 2023 1:08PM EST (Author) Electronically signed by : Jessica Garcia, PT; Feb 13 2023 10:35PM EST [facility] Progress Noteon 3 PT Progress Note No report was sent [facility] Therapy Communicationon 01-11 Therapy Communication Message ADRIAN APONTE no showed today 02/01/23. Patient no call no show, called and spoke with patient he reported he looked at the schedule wrong and apologized for missing, confirmed his next appointment. Signatures Electronically signed by : Brianne Ferguson COLLEGE ARCHIVIST; Feb 01 2023 8:48AM EST (Author) Normal [facility] PT Progress Noteon 3 PT Progress Note Therapy Diagnosis Assessed Chronic right shoulder pain (719.41,338.29) (M25.511,G89.29) Arthritis of left shoulder region (716.91) (M19.012) Strain of musc/tend the rotator cuff of right shoulder, subs (V58.89,840.9) (S46.011D) Other synovitis and tenosynovitis, right shoulder (726.10) (M65.811) Arthritis of right shoulder region (716.91) (M19.011) Impingement syndrome, shoulder, left (726.2) (M75.42) Plan Goals: Goals set and discussed today. By discharge ADRIAN APONTE will achieve the following goals: Pt will demo and report compliance with HEP in order to augment POC goals and progression toward independence with symptom management for better outcomes once D/C from POC. , by week 2 Strength: Pt will demo improved MMT by >/= 1 point on 0-5 point scale in BUE's for improved strength and stability, and improved ease with lifting, carrying, and proper mechanics with ADL?s AND IADL?s. QUICKDASH, Pt will report subjective improvement with score on QUICKDASH improved by >/= 5 points for return to PLOF, improved QOL, and improved ease with ADL?s AND IADL?s. Planned interventions include: cryotherapy, dry needling, education/instruction , electrical stimulation, home program, hot pack, kinesiotaping, manual therapy, self care/home management, therapeutic activities, therapeutic exercises, ultrasound, vasopneumatic device, vasopneumatic device w/ cold and IASTM/CUPPING . Focus on stability with decreased repetitive movement; CKC positions on elevated plinth as able; TDN and IASTM; KT tape;. Frequency and duration: 2 time(s) a week, for 4 weeks, for 8 visits. Potential to achieve rehab goals is fair: Plan to continue with strength progression and IASTM for pain relief and improved mobility. JA . Progress with POC, as tolerated. Assessment Patient identified by name and date of . Switched to active resisted IR/ER d/t c/o hip pain. Tightness along the L shoulder > R shoulder. Did not reapply KT this date d/ continued scabbing from previous visit, wanted to give skin more of a break. Added resisted rows this date with no pain increase. Reason For Visit Initial Evaluation . Right AND Left Shoulder pain. Referred by: Dr Caruso Adult Risk Screening There are no spiritual/cultural practices/values/need s that are important to know Initial Fall Risk Screening: ADRIAN has not fallen in the last 6 months. ADRIAN does not have a fear of falling. He does not need assistance with sitting, standing or walking. Does not need assistance walking in his home. He does not need assistance in an unfamiliar setting. The patient is not using an assistive device. Please identify location of pain: Left shoulder > Right shoulder. Pain Quality: aching, dull and sharp. The pain makes it hard for the patient to do these things: sleep, relationships with family or friends and self-care (bathing, dressing, eating). Living Will. Living Will: Living will on file. Healthcare POA: Health care proxy on file. Declaration of Mental Health Treatment: No mental health treatment on file. Domestic Violence Screen: Does not feel threatened or abused physically, emotionally or sexually. Do you feel UNSAFE? The patient feels safe in the home. Depression/Suicide Screening: During the past 2 weeks, the patient has not felt down, depressed or hopeless. During the past 2 weeks, the patient has not felt little interest or pleasure in doing things. Insurance Insurance reviewed Visit number: 3 Authorization not required after evaluation POC: 2/ Medicare Supervising PT: Jessica Garcia PT, DPT, Nae PEREZ PT Dx: Subjective Patient reports:. Patient reports pain is approx 5/10 B/L. Notes that the weather pressure is affecting him today. Patient has some extra stress with work, so feels like he more tight today in his muscles. Patient reports that he has been doing the exercises with no issues. Patient notes that he still has scabbing from the tape last visit. Notes the resisted walkouts hurt his hips last visit. Home program performing as directed: Yes. Precautions: Fall Risk: none Treatment Time in clinic started at 4:15 Time in clinic ended at 5:00 Total time in clinic is 48 minutes. Total timed code time is 46 minutes. Therapeutic exercise (81191): timed minutes 32, units 2 . scap retraction x 10 x5? UBE 3? fwd 3? bwd Kathy 3' flex (N) T-band walk outs 2 step green band Resisted rows Purple tube 2 x 10 (N) Supine Rhythmic Stabilization at 90 shld flex 3 x 20? (N) CKC Weight Shifts B/L 2 x 10 (N) . Manual Therapy (28595): timed minutes 12, units 1 . STM to Left supraspinatus, UT, LS KT Tape for scap retraction/depression , AC joint space correction to L GH joint (X) IASTM (N) TDN (A) . 'Scores and Scales' Signatures Electronically signed by : Lydia Lang, COLLEGE ARCHIVIST; Jan 30 2023 5:00PM EST (Author) Electronically signed by : Jessica Garcia, PT; Feb 13 2023 10:35PM EST [facility] PT Progress Note No report was sent [facility] PT Progress Noteon 3 PT Progress Note Therapy Diagnosis Assessed Chronic right shoulder pain (719.41,338.29) (M25.511,G89.29) Arthritis of left shoulder region (716.91) (M19.012) Strain of musc/tend the rotator cuff of right shoulder, subs (V58.89,840.9) (S46.011D) Other synovitis and tenosynovitis, right shoulder (726.10) (M65.811) Arthritis of right shoulder region (716.91) (M19.011) Impingement syndrome, shoulder, left (726.2) (M75.42) Plan Goals: Goals set and discussed today. By discharge ADRIAN APONTE will achieve the following goals: Pt will demo and report compliance with HEP in order to augment POC goals and progression toward independence with symptom management for better outcomes once D/C from POC. , by week 2 Strength: Pt will demo improved MMT by >/= 1 point on 0-5 point scale in BUE's for improved strength and stability, and improved ease with lifting, carrying, and proper mechanics with ADL?s AND IADL?s. QUICKDASH, Pt will report subjective improvement with score on QUICKDASH improved by >/= 5 points for return to PLOF, improved QOL, and improved ease with ADL?s AND IADL?s. Planned interventions include: cryotherapy, dry needling, education/instruction , electrical stimulation, home program, hot pack, kinesiotaping, manual therapy, self care/home management, therapeutic activities, therapeutic exercises, ultrasound, vasopneumatic device, vasopneumatic device w/ cold and IASTM/CUPPING . Focus on stability with decreased repetitive movement; CKC positions on elevated plinth as able; TDN and IASTM; KT tape;. Frequency and duration: 2 time(s) a week, for 4 weeks, for 8 visits. Potential to achieve rehab goals is fair: Continue with strengthening and ROM exercises with manual as needed for reduction of Sx and increased ease with ADL's. AW . Progress with POC, as tolerated. Assessment Patient identified by name and date of . Patient was able to progress with strengthening this date with discomfort When removing k-tap patient skin broke down and experienced minor bleeding, instructed patient to remove at home during or after a warm shower he verbalized good understanding. He presented with palpable tension with STW/IASTM that responded well. Reason For Visit Initial Evaluation . Right AND Left Shoulder pain. Referred by: Dr Caruso Adult Risk Screening There are no spiritual/cultural practices/values/need s that are important to know Initial Fall Risk Screening: ADRIAN has not fallen in the last 6 months. ADRIAN does not have a fear of falling. He does not need assistance with sitting, standing or walking. Does not need assistance walking in his home. He does not need assistance in an unfamiliar setting. The patient is not using an assistive device. Pain Scale: On a scale of 0 to 10, the patient rates the pain at 4. Please identify location of pain: Left shoulder > Right shoulder. Pain Quality: aching, dull and sharp. The pain makes it hard for the patient to do these things: sleep, relationships with family or friends and self-care (bathing, dressing, eating). Living Will. Living Will: Living will on file. Healthcare POA: Health care proxy on file. Declaration of Mental Health Treatment: No mental health treatment on file. Domestic Violence Screen: Does not feel threatened or abused physically, emotionally or sexually. Do you feel UNSAFE? The patient feels safe in the home. Depression/Suicide Screening: During the past 2 weeks, the patient has not felt down, depressed or hopeless. During the past 2 weeks, the patient has not felt little interest or pleasure in doing things. Insurance Insurance reviewed Visit number: 2 Authorization not required after evaluation POC: 2/ Medicare Supervising PT: Jessica Garcia PT, DPT, Nae DN PT Dx: Subjective Patient reports:. Patient reported he took pain meds prior to treatment. Patient reported he likes the K tape. He reported 5-6/10 pain after treatment. Home program performing as directed: Yes. Precautions: Fall Risk: none Treatment Time in clinic started at 09:56 Time in clinic ended at 10:44 Total time in clinic is 48 minutes. Total timed code time is 46 minutes. Therapeutic exercise (30647): timed minutes 32, units 2 . scap retraction x 10 x5? Review of HEP UBE 3? fwd 3? bwd (N) T-band walk outs 2 step green band (N) Supine Rhythmic Stabilization at 90 shld flex 3 x 20? (N) CKC Weight Shifts B/L 2 x 10 (N) . Manual Therapy (56809): timed minutes 14, units 1 . STM to Left supraspinatus, UT, LS KT Tape for scap retraction/depression , AC joint space correction to L GH joint IASTM (A) TDN (A) . 'Scores and Scales' Signatures Electronically signed by : Brianne Ferguson PTA; Jan 25 2023 2:27PM EST (Author) Electronically signed by : Jessica Garcia PT; Feb 13 2023 10:35PM EST [facility] PT Initial Evaluationon 01-10 PT Initial Evaluation Therapy Diagnosis Assessed Chronic right shoulder pain (719.41,338.29) (M25.511,G89.29) Chronic left shoulder pain (719.41,338.29) (M25.512,G89.29) Strain of tendon of left rotator cuff, subsequent encounter (V58.89,840.4) (S46.012D) Strain of musc/tend the rotator cuff of right shoulder, subs (V58.89,840.9) (S46.011D) Other synovitis and tenosynovitis, right shoulder (726.10) (M65.811) Arthritis of left shoulder region (716.91) (M19.012) Arthritis of right shoulder region (716.91) (M19.011) Impingement syndrome, shoulder, left (726.2) (M75.42) Plan of Care Goals: Goals set and discussed today. By discharge ADRIAN APONTE will achieve the following goals: Pt will demo and report compliance with HEP in order to augment POC goals and progression toward independence with symptom management for better outcomes once D/C from POC. , by week 2 Strength: Pt will demo improved MMT by >/= 1 point on 0-5 point scale in BUE's for improved strength and stability, and improved ease with lifting, carrying, and proper mechanics with ADL?s AND IADL?s. QUICKDASH, Pt will report subjective improvement with score on QUICKDASH improved by >/= 5 points for return to PLOF, improved QOL, and improved ease with ADL?s AND IADL?s. Planned interventions include: cryotherapy, dry needling, education/instruction , electrical stimulation, home program, hot pack, kinesiotaping, manual therapy, self care/home management, therapeutic activities, therapeutic exercises, ultrasound, vasopneumatic device, vasopneumatic device w/ cold and IASTM/CUPPING . Focus on stability with decreased repetitive movement; CKC positions on elevated plinth as able; TDN and IASTM; KT tape;. Frequency and duration: 2 time(s) a week, for 4 weeks, for 8 visits. Potential to achieve rehab goals is fair: Plan of care was developed with input and agreement by the patient. Assessment Mr. APONTE presents with signs and symptoms consistent with acute exacerbation of chronic bilateral shoulder pain with arthritis and strain of bilateral shoulder musculature and demonstrates impairments/limitatio ns in Shoulder AROM and PROM with significant instability in bilateral shoulders, weakness at proximal stabilizers as well as myofascial restriction throughout scapular musculature. KT tape applied to Left shoulder this date for improved stability/kinesthetic sense input for improved motor control. He responded well to STM performed after initial evaluation this date and would be a good candidate for Trigger Point Dry Needling in following sessions. He reported good understanding of edu and review of HEP with HO given this date with peach and red theraband and blue theraloop. Pt also encouraged to increase frequency of use of cryotherapy at home. They would benefit from skilled Physical Therapy with combination of manual therapy techniques to decrease myofascial and joint restrictions, as well as progression of exercises for ROM, flexibility, strength, core stabilization, and postural retraining, and body mechanics education throughout POC to progress towards independence with ADL?s/IADL?s and return to PLOF. Clinical Presentation: Stable and/or uncomplicated characteristics. Level of Complexity: low Problem List: activity limitations, ADLs/IADLs/self care skills, decreased functional level, flexibility, gait/locomotion, motor function/control/tone , pain, participation restrictions, posture, range of motion/joint mobility and strength. Reason For Visit Initial Evaluation . Right AND Left Shoulder pain. Referred by: Dr Caruso Adult Risk Screening There are no spiritual/cultural practices/values/need s that are important to know Initial Fall Risk Screening: ADRIAN has not fallen in the last 6 months. ADRIAN does not have a fear of falling. He does not need assistance with sitting, standing or walking. Does not need assistance walking in his home. He does not need assistance in an unfamiliar setting. The patient is not using an assistive device. Pain Scale: On a scale of 0 to 10, the patient rates the pain at 5. Please identify location of pain: Left shoulder > Right shoulder. Pain Quality: aching, dull and sharp. The pain makes it hard for the patient to do these things: sleep, relationships with family or friends and self-care (bathing, dressing, eating). Living Will. Living Will: Living will on file. Healthcare POA: Health care proxy on file. Declaration of Mental Health Treatment: No mental health treatment on file. Domestic Violence Screen: Does not feel threatened or abused physically, emotionally or sexually. Do you feel UNSAFE? The patient feels safe in the home. Depression/Suicide Screening: During the past 2 weeks, the patient has not felt down, depressed or hopeless. During the past 2 weeks, the patient has not felt little interest or pleasure in doing things. Insurance Insurance reviewed Visit number: 1 Authorization not required after evaluation POC: 1/ Medi (more content not included)... Normal [facility] PT Progress Noteon 3 PT Progress Note Therapy Diagnosis Assessed Chronic left shoulder pain (719.41,338.29) (M25.512,G89.29) Chronic right shoulder pain (719.41,338.29) (M25.511,G89.29) Plan Goals: Goals set and discussed today. LTG's: 1) Improve b/l shoulder strength from 4-/5 to >= 4+/5 throughout in order to facilitate ability to reach overhead and lift objects. 4-6 weeks 11/09/2022, NOT MET, b/l shoulder strength 4- to 4/5 throughout 2) Improve b/l shoulder PROM to >= 165 deg flex/abd and 80 deg ER/IR in order to better reach overhead or behind back. 4-6 weeks , PARTIALLY MET, PROM/AAROM 160 deg flex/scaption/abd, 70 deg IR and 75 deg ER 3) Improve b/l shoulder pain from 5/10 to <= 3/10 with activity in order to improve QOL. 4-6 weeks 11/09/2022, NOT MET, Pain range 4-9/10 b/l shoulders 4) Improve quick dash score by >= 5 points in order to improve QOL. 4-6 weeks 11/09/2022, NOT MET, pt scored a 54.55 at DC 5) The pt will improve ability to raise arm/shoulder overhead, reach at various angles, lift/carry objects, dress upper body, overhead activity and return to exercise and work around the home without significant limitation. 4-6 weeks 11/09/2022, PARTIALLY MET, pt can do the above activity with exception to exercising but does have significant pain and has to be very cautious to move slow and not over do it. ST) Pt/caregiver will be I and consistent with HEP with use of handout as needed in order to maximize shoulder strength and ROM/flexibility. 2-3 weeks 11/09/2022, MET, pt is I with current HEP Planned interventions include: cryotherapy, education/instruction , home program, manual therapy and therapeutic exercises . Manual Therapy including IASTM and cupping as needed. Frequency and duration: No further visits planned. Potential to achieve rehab goals is good 11/09/2022 PT DC Summary: The pt has made some mild objective progress in PT with improved b/l shoulder strength and ROM/flexibility. The pt did not fully Meet his PT goals but is I with his HEP and has handouts as a reference. Pt reports that he will keep up with his ex's for ROM/flexibility and strengthening as able but that overall PT did not help improve his shoulder pain and that he still has severe B/l shoulder pain with activity. DC PT at this time. Follow up with MD as needed for further treatment interventions or diagnostic testing. Discharge patient: Progress plateaued. Assessment The pt has made some mild objective progress in PT with improved b/l shoulder strength and ROM/flexibility. The pt did not fully Meet his PT goals but is I with his HEP and has handouts as a reference. Pt reports that he will keep up with his ex's for ROM/flexibility and strengthening as able but that overall PT did not help improve his shoulder pain and that he still has severe B/l shoulder pain with activity. DC PT at this time. Follow up with MD as needed for further treatment interventions or diagnostic testing. Response to treatment: improved joint mobility/ROM and improved flexibility. Adult Risk Screening There are no spiritual/cultural practices/values/need s that are important to know Initial Fall Risk Screening: ADRIAN has not fallen in the last 6 months. ADRIAN does not have a fear of falling. He does not need assistance with sitting, standing or walking. Does not need assistance walking in his home. He does not need assistance in an unfamiliar setting. The patient is not using an assistive device. Fall Risk Screening: patient is not considered a fall risk. Pain Scale: On a scale of 0 to 10, the patient rates the pain at 4. Please identify location of pain: B/L Shoulder (Pain Range 5-9/10). Pain Quality: aching, sharp and tightness. The pain makes it hard for the patient to do these things: walking, exercise, sleep and house work. Living Will. Living Will: Living will on file. Healthcare POA: Health care proxy on file. Declaration of Mental Health Treatment: No mental health treatment on file. Depression/Suicide Screening: During the past 2 weeks, the patient has not felt down, depressed or hopeless. During the past 2 weeks, the patient has not felt little interest or pleasure in doing things. Insurance Insurance reviewed Visit number: 7 Medicare Ins: Medical Necessity. Follow Medicare Guidelines. Dx: B/L Shoulder Pain M25.511 Evaluating PT: Keith Mueller This patient?s care and PT of record will be transferred from Keith Mueller PT, MPT to Jessica Garcia PT effective as of 10/13/2022 Subjective Patient reports:. Pt reports that PT has not significantly improved his b/l shoulder pain but that he will do his ex's as able. Pt reports that he plans to follow up with MD in the near future. Home program performing as directed: Yes. Precautions: PMH; hx of bladder CA, no active CA currently but pt is monitored by MD 2x/year, HTN, neuropathy, OA, R THR, hx of R knee surgery, hx of lumbar ablasion, hx of chronic LBP. Precautions: No heated modalities due t (more content not included)... Normal [facility] PT Progress Noteon 3 PT Progress Note No report was sent Normal [facility] Therapy Communicationon 10-11 Therapy Communication Message ADRIAN FAY no showed today . Signatures Electronically signed by : Lydia Lang PTA; Nov 04 2022 3:58PM EST (Author) Normal [facility] PT Progress Noteon 3 PT Progress Note Therapy Diagnosis Assessed Chronic left shoulder pain (719.41,338.29) (M25.512,G89.29) Chronic right shoulder pain (719.41,338.29) (M25.511,G89.29) Plan Goals: Goals set and discussed today. LTG's: 1) Improve b/l shoulder strength from 4-/5 to >= 4+/5 throughout in order to facilitate ability to reach overhead and lift objects. 4-6 weeks 2) Improve b/l shoulder PROM to >= 165 deg flex/abd and 80 deg ER/IR in order to better reach overhead or behind back. 4-6 weeks 3) Improve b/l shoulder pain from 5/10 to <= 3/10 with activity in order to improve QOL. 4-6 weeks 4) Improve quick dash score by >= 5 points in order to improve QOL. 4-6 weeks 5) The pt will improve ability to raise arm/shoulder overhead, reach at various angles, lift/carry objects, dress upper body, overhead activity and return to exercise and work around the home without significant limitation. 4-[address]) Pt/caregiver will be I and consistent with HEP with use of handout as needed in order to maximize shoulder strength and ROM/flexibility. 2-3 weeks Planned interventions include: cryotherapy, education/instruction , home program, manual therapy and therapeutic exercises . Manual Therapy including IASTM and cupping as needed. Frequency and duration: 2 time(s) a week, for 4 weeks, for 8 visits. Potential to achieve rehab goals is good Plan to continue to progress functional strength as pain allows. Progress with POC, as tolerated. Assessment Patient identified by name and date of . Added iso ADD/ABD this date with increased pain in the L > R. Pain increased with posterior movements in the R. Improved ROM with wall flexion. Pain overall Resisted rowing added this date with pain along the L anterior shoulder. Completed IASTM to rhomboid region on the R and bicep on the L with relief noted during. Adult Risk Screening There are no spiritual/cultural practices/values/need s that are important to know Initial Fall Risk Screening: ADRIAN has not fallen in the last 6 months. ADRIAN does not have a fear of falling. He does not need assistance with sitting, standing or walking. Does not need assistance walking in his home. He does not need assistance in an unfamiliar setting. The patient is not using an assistive device. Fall Risk Screening: patient is not considered a fall risk. Please identify location of pain: B/L Shoulder (Pain Range 5-9/10). Pain Quality: aching, sharp and tightness. The pain makes it hard for the patient to do these things: walking, exercise, sleep and house work. Living Will. Living Will: Living will on file. Healthcare POA: Health care proxy on file. Declaration of Mental Health Treatment: No mental health treatment on file. Depression/Suicide Screening: During the past 2 weeks, the patient has not felt down, depressed or hopeless. During the past 2 weeks, the patient has not felt little interest or pleasure in doing things. Insurance Insurance reviewed Visit number: 6 Medicare Ins: Medical Necessity. Follow Medicare Guidelines. Dx: B/L Shoulder Pain M25.511 Evaluating PT: Keith Mueller This patient?s care and PT of record will be transferred from Keith Mueller PT, MPT to Jessica Garcia PT effective as of 10/13/2022 Subjective Patient reports:. Patient reports that he is not getting any lasting relief. States that his pain was bad last night making it difficult for him to sleep. Current pain level 5/10 again this date in both shoulders. Precautions: PMH; hx of bladder CA, no active CA currently but pt is monitored by MD 2x/year, HTN, neuropathy, OA, R THR, hx of R knee surgery, hx of lumbar ablasion, hx of chronic LBP. Precautions: No heated modalities due to CA hx and high reoccurrence rate. Treatment Time in clinic started at 3:30 Time in clinic ended at 4:15 Total time in clinic is 45 minutes. Total timed code time is 43 minutes. Therapeutic exercise (64749): timed minutes 28, units 2 . UBE 3' fwd/ 3' bwd (P time) Shoulder Kathy 2 min - flex 2' - scaption 2' Wall flexion 2 x 10 Isometrics: - flex/ext 2 x 10 ea x 5 hold (P reps) - ABD/ADD 2 x 10 ea (N) Resisted Rows pink tube 2 x 10 (N) Resisted ext U/L Kern 2 x 10 (N) Seated scap retractions 2 x 10 (N) Doorway stretch 10 x 10 - pec - Rhomboid Standing SB ROM: (P to playball on wall) - HABD/HADD - CW/CCW - Flexion Therabar Red N's and U's 2 x 10 Seated table slides flex 2 x 10 (X) . Manual Therapy (71216): timed minutes 15, units 1 . PROM b/l shoulders all planes (X) STW to B/L shoulder R > L IASTM 15'. 'Scores and Scales' Signatures Electronically signed by : Lydia Lang COLLEGE ARCHIVIST; Nov 02 2022 4:19PM EST (Author) Electronically signed by : Shakeel Mueller, PT; Nov 02 2022 6:14PM EST [facility] Progress Noteon 3 PT Progress Note Therapy Diagnosis Assessed Chronic right shoulder pain (719.41,338.29) (M25.511,G89.29) Chronic left shoulder pain (719.41,338.29) (M25.512,G89.29) Plan Goals: Goals set and discussed today. LTG's: 1) Improve b/l shoulder strength from 4-/5 to >= 4+/5 throughout in order to facilitate ability to reach overhead and lift objects. 4-6 weeks 2) Improve b/l shoulder PROM to >= 165 deg flex/abd and 80 deg ER/IR in order to better reach overhead or behind back. 4-6 weeks 3) Improve b/l shoulder pain from 5/10 to <= 3/10 with activity in order to improve QOL. 4-6 weeks 4) Improve quick dash score by >= 5 points in order to improve QOL. 4-6 weeks 5) The pt will improve ability to raise arm/shoulder overhead, reach at various angles, lift/carry objects, dress upper body, overhead activity and return to exercise and work around the home without significant limitation. 4-[address]) Pt/caregiver will be I and consistent with HEP with use of handout as needed in order to maximize shoulder strength and ROM/flexibility. 2-3 weeks Planned interventions include: cryotherapy, education/instruction , home program, manual therapy and therapeutic exercises . Manual Therapy including IASTM and cupping as needed. Frequency and duration: 2 time(s) a week, for 4 weeks, for 8 visits. Potential to achieve rehab goals is good Continue to progress strength and STW for improved daily function. Progress with POC, as tolerated. Assessment Patient identified by name and date of . Progressed time on UBE this date. Decreased myofascial restriction this date along the rhomboid region on the R shoulder. Tenderness along the bicipital groove today on the L shoulder. Adult Risk Screening There are no spiritual/cultural practices/values/need s that are important to know Initial Fall Risk Screening: ADRIAN has not fallen in the last 6 months. ADRIAN does not have a fear of falling. He does not need assistance with sitting, standing or walking. Does not need assistance walking in his home. He does not need assistance in an unfamiliar setting. The patient is not using an assistive device. Fall Risk Screening: patient is not considered a fall risk. Please identify location of pain: B/L Shoulder (Pain Range 5-9/10). Pain Quality: aching, sharp and tightness. The pain makes it hard for the patient to do these things: walking, exercise, sleep and house work. Living Will. Living Will: Living will on file. Healthcare POA: Health care proxy on file. Declaration of Mental Health Treatment: No mental health treatment on file. Depression/Suicide Screening: During the past 2 weeks, the patient has not felt down, depressed or hopeless. During the past 2 weeks, the patient has not felt little interest or pleasure in doing things. Insurance Insurance reviewed Visit number: 5 Medicare Ins: Medical Necessity. Follow Medicare Guidelines. Dx: B/L Shoulder Pain M25.511 Evaluating PT: Keith Mueller This patient?s care and PT of record will be transferred from Keith Mueller PT, MPT to [facility] PT effective as of 10/13/2022 Subjective Patient reports:. Current pain level 4/10 again this date in both shoulders. States that his should pain stays at the 4 unless he uses his arms. States that . Precautions: PMH; hx of bladder CA, no active CA currently but pt is monitored by MD 2x/year, HTN, neuropathy, OA, R THR, hx of R knee surgery, hx of lumbar ablasion, hx of chronic LBP. Precautions: No heated modalities due to CA hx and high reoccurrence rate. Treatment Time in clinic started at 2:45 Time in clinic ended at 3:31 Total time in clinic is 41 minutes. Total timed code time is 45 minutes. Therapeutic exercise (20367): timed minutes 27, units 2 . UBE 3' fwd/ 3' bwd (P time) Shoulder Kathy 2 min - flex 2' - scaption 2' Wall flexion 2 x 10 Isometrics: - flex/ext 10 x 5 hold Seated scap retractions 2 x 10 (N) Seated table slides flex 2 x 10 Doorway stretch 10 x 10 - pec - Rhomboid Standing SB ROM: - HABD/HADD - CW/CCW - Flexion Therabar Red N's and U's 2 x 10 . Manual Therapy (09089): timed minutes 15, units 1 . PROM b/l shoulders all planes (X) STW to B/L shoulder R > L 15' (N). 'Scores and Scales' Signatures Electronically signed by : Lydia Lang, COLLEGE ARCHIVIST; Oct 28 2022 3:35PM EST (Author) Electronically signed by : Shakeel Mueller, PT; Oct 31 2022 5:27PM EST [facility] Progress Noteon 3 PT Progress Note Therapy Diagnosis Assessed Chronic left shoulder pain (719.41,338.29) (M25.512,G89.29) Chronic right shoulder pain (719.41,338.29) (M25.511,G89.29) Plan Goals: Goals set and discussed today. LTG's: 1) Improve b/l shoulder strength from 4-/5 to >= 4+/5 throughout in order to facilitate ability to reach overhead and lift objects. 4-6 weeks 2) Improve b/l shoulder PROM to >= 165 deg flex/abd and 80 deg ER/IR in order to better reach overhead or behind back. 4-6 weeks 3) Improve b/l shoulder pain from 5/10 to <= 3/10 with activity in order to improve QOL. 4-6 weeks 4) Improve quick dash score by >= 5 points in order to improve QOL. 4-6 weeks 5) The pt will improve ability to raise arm/shoulder overhead, reach at various angles, lift/carry objects, dress upper body, overhead activity and return to exercise and work around the home without significant limitation. 4-[address]) Pt/caregiver will be I and consistent with HEP with use of handout as needed in order to maximize shoulder strength and ROM/flexibility. 2-3 weeks Planned interventions include: cryotherapy, education/instruction , home program, manual therapy and therapeutic exercises . Manual Therapy including IASTM and cupping as needed. Frequency and duration: 2 time(s) a week, for 4 weeks, for 8 visits. Potential to achieve rehab goals is good Progress ther ex as able and continue with ROM and stretches for improved mobility. Progress with POC, as tolerated. Assessment Patient identified by name and date of . Able to add UBE this date with Added isometric to begin gentle strength progression. Progressed HEP by adding doorway stretch, wall flexion and isometrics with handout. Tightness continues along the rhomboid region during STW on R and UT on the L. Adult Risk Screening There are no spiritual/cultural practices/values/need s that are important to know Initial Fall Risk Screening: ADRIAN has not fallen in the last 6 months. ADRIAN does not have a fear of falling. He does not need assistance with sitting, standing or walking. Does not need assistance walking in his home. He does not need assistance in an unfamiliar setting. The patient is not using an assistive device. Fall Risk Screening: patient is not considered a fall risk. Please identify location of pain: B/L Shoulder (Pain Range 5-9/10). Pain Quality: aching, sharp and tightness. The pain makes it hard for the patient to do these things: walking, exercise, sleep and house work. Living Will. Living Will: Living will on file. Healthcare POA: Health care proxy on file. Declaration of Mental Health Treatment: No mental health treatment on file. Depression/Suicide Screening: During the past 2 weeks, the patient has not felt down, depressed or hopeless. During the past 2 weeks, the patient has not felt little interest or pleasure in doing things. Insurance Insurance reviewed Visit number: 4 Medicare Ins: Medical Necessity. Follow Medicare Guidelines. Dx: B/L Shoulder Pain M25.511 Evaluating PT: Keith Mueller This patient?s care and PT of record will be transferred from Keith Mueller PT, MPT to [facility] effective as of 10/13/2022 Subjective Patient reports:. Current pain level 4/10 today. Patient reports that PT is not helping to improve his symptoms yet. Popping continues in both shoulders. Was dumping his trailer and tried to get off the ground using the R UE to push off and had a lot of pain and difficulty d/t the pain along the back of the R shoulder. Precautions: PMH; hx of bladder CA, no active CA currently but pt is monitored by 2x/year, HTN, neuropathy, OA, R THR, hx of R knee surgery, hx of lumbar ablasion, hx of chronic LBP. Precautions: No heated modalities due to CA hx and high reoccurrence rate. Treatment Time in clinic started at 4:15 Time in clinic ended at 5:00 Total time in clinic is 45 minutes. Total timed code time is 45 minutes. Therapeutic exercise (19875): timed minutes 27, units 2 . UBE 2' fwd/ 2' bwd (N) Shoulder Kathy 2 min - flex 2' - scaption 2' Wall flexion 2 x 10 (N) Isometrics: - flex/ext 10 x 5 hold (N) Seated scap retractions 2 x 10 (N) Seated table slides flex 2 x 10 (N) Doorway stretch 10 x 10 - pec - Rhomboid Standing SB ROM: - HABD/HADD - CW/CCW - Flexion Therabar Red N's and U's 2 x 10 . Manual Therapy (96535): timed minutes 15, units 1 . PROM b/l shoulders all planes (X) STW to B/L shoulder R > L 15' (N). 'Scores and Scales' Signatures Electronically signed by : Lydia Lang, COLLEGE ARCHIVIST; Oct 26 2022 4:14PM EST (Author) Electronically signed by : Shakeel Mueller, PT; Oct 27 2022 2:22PM EST [facility] Progress Noteon 3 PT Progress Note Therapy Diagnosis Assessed Chronic left shoulder pain (719.41,338.29) (M25.512,G89.29) Chronic right shoulder pain (719.41,338.29) (M25.511,G89.29) Plan Goals: Goals set and discussed today. LTG's: 1) Improve b/l shoulder strength from 4-/5 to >= 4+/5 throughout in order to facilitate ability to reach overhead and lift objects. 4-6 weeks 2) Improve b/l shoulder PROM to >= 165 deg flex/abd and 80 deg ER/IR in order to better reach overhead or behind back. 4-6 weeks 3) Improve b/l shoulder pain from 5/10 to <= 3/10 with activity in order to improve QOL. 4-6 weeks 4) Improve quick dash score by >= 5 points in order to improve QOL. 4-6 weeks 5) The pt will improve ability to raise arm/shoulder overhead, reach at various angles, lift/carry objects, dress upper body, overhead activity and return to exercise and work around the home without significant limitation. 4-[address]) Pt/caregiver will be I and consistent with HEP with use of handout as needed in order to maximize shoulder strength and ROM/flexibility. 2-3 weeks Planned interventions include: cryotherapy, education/instruction , home program, manual therapy and therapeutic exercises . Manual Therapy including IASTM and cupping as needed. Frequency and duration: 2 time(s) a week, for 4 weeks, for 8 visits. Potential to achieve rehab goals is good Progress ther ex as able and continue with ROM and stretches for improved mobility. Progress with POC, as tolerated. Assessment Patient identified by name and date of . Discussed potential ways to set up kathy at home as part of HEP d/t not having the right area to use a door. Patient was not flinching as much when completing SB ROM on raised plinth. Added scaption with kathy use to gain motion in new plane of movement. Doorway stretch completed this date d/t tightness along pec and posterior shoulder with tightness observed. Adult Risk Screening There are no spiritual/cultural practices/values/need s that are important to know Initial Fall Risk Screening: ADRIAN has not fallen in the last 6 months. ADRIAN does not have a fear of falling. He does not need assistance with sitting, standing or walking. Does not need assistance walking in his home. He does not need assistance in an unfamiliar setting. The patient is not using an assistive device. Fall Risk Screening: patient is not considered a fall risk. Please identify location of pain: B/L Shoulder (Pain Range 5-9/10). Pain Quality: aching, sharp and tightness. The pain makes it hard for the patient to do these things: walking, exercise, sleep and house work. Living Will. Living Will: Living will on file. Healthcare POA: Health care proxy on file. Declaration of Mental Health Treatment: No mental health treatment on file. Depression/Suicide Screening: During the past 2 weeks, the patient has not felt down, depressed or hopeless. During the past 2 weeks, the patient has not felt little interest or pleasure in doing things. Insurance Insurance reviewed Visit number: 2 Medicare Ins: Medical Necessity. Follow Medicare Guidelines. Dx: B/L Shoulder Pain M25.511 Evaluating PT: Keith Mueller This patient?s care and PT of record will be transferred from Keith Mueller PT, MPT to [facility] effective as of 10/13/2022 Subjective Patient reports:. Current pain level 5/10 today. States that he was sore after last therapy for approx a day and half. States that he has popping in both shoulders. Patient identified by name and date of . Precautions: PMH; hx of bladder CA, no active CA currently but pt is monitored by MD 2x/year, HTN, neuropathy, OA, R THR, hx of R knee surgery, hx of lumbar ablasion, hx of chronic LBP. Precautions: No heated modalities due to CA hx and high reoccurrence rate. Treatment Time in clinic started at 4:15 Time in clinic ended at 5:00 Total time in clinic is 45 minutes. Total timed code time is 45 minutes. Therapeutic exercise (24720): timed minutes 27, units 2 . Shoulder Kathy 2 min - flex 2' - scaption 2' (N) Seated table slides flex 2 x 10 (N) Doorway stretch 10 x 10 (N) - low - posterior shoulder Standing SB ROM: - HABD/HADD - CW/CCW - Flexion Therabar Red N's and U's 2 x 10 . Manual Therapy ([id number]): timed minutes 15, units 1 . PROM b/l shoulders all planes (X) STW to B/L shoulder R > L 15' (N). 'Scores and Scales' Signatures Electronically signed by : Lydia Lang, COLLEGE ARCHIVIST; Oct 21 2022 5:02PM EST (Author) Electronically signed by : Shakeel Mueller, PT; Oct 24 2022 1:17PM EST [facility] PT Progress Noteon 3 PT Progress Note Therapy Diagnosis Assessed Chronic left shoulder pain (719.41,338.29) (M25.512,G89.29) Plan Goals: Goals set and discussed today. LTG's: 1) Improve b/l shoulder strength from 4-/5 to >= 4+/5 throughout in order to facilitate ability to reach overhead and lift objects. 4-6 weeks 2) Improve b/l shoulder PROM to >= 165 deg flex/abd and 80 deg ER/IR in order to better reach overhead or behind back. 4-6 weeks 3) Improve b/l shoulder pain from 5/10 to <= 3/10 with activity in order to improve QOL. 4-6 weeks 4) Improve quick dash score by >= 5 points in order to improve QOL. 4-6 weeks 5) The pt will improve ability to raise arm/shoulder overhead, reach at various angles, lift/carry objects, dress upper body, overhead activity and return to exercise and work around the home without significant limitation. 4-[address]) Pt/caregiver will be I and consistent with HEP with use of handout as needed in order to maximize shoulder strength and ROM/flexibility. 2-3 weeks Planned interventions include: cryotherapy, education/instruction , home program, manual therapy and therapeutic exercises . Manual Therapy including IASTM and cupping as needed. Frequency and duration: 2 time(s) a week, for 4 weeks, for 8 visits. Potential to achieve rehab goals is good Progress ther ex for continued improved functional mobility and strength with home and work related tasks. Progress with POC, as tolerated. Assessment Patient identified by name and date of . Observed difficulty with reaching overhead to grab the kathy's. Hands started going numb when using the kathy. L shoulder SB HABD/HADD- pain with end range of HABD. R shoulder SB HABD/HADD- pain throughout range. Tightness with table flexion on the R > L. Added therabar exercises for functional strength progression. Adult Risk Screening There are no spiritual/cultural practices/values/need s that are important to know Initial Fall Risk Screening: ADRIAN has not fallen in the last 6 months. ADRIAN does not have a fear of falling. He does not need assistance with sitting, standing or walking. Does not need assistance walking in his home. He does not need assistance in an unfamiliar setting. The patient is not using an assistive device. Fall Risk Screening: patient is not considered a fall risk. Please identify location of pain: B/L Shoulder (Pain Range 5-9/10). Pain Quality: aching, sharp and tightness. The pain makes it hard for the patient to do these things: walking, exercise, sleep and house work. Living Will. Living Will: Living will on file. Healthcare POA: Health care proxy on file. Declaration of Mental Health Treatment: No mental health treatment on file. Depression/Suicide Screening: During the past 2 weeks, the patient has not felt down, depressed or hopeless. During the past 2 weeks, the patient has not felt little interest or pleasure in doing things. Insurance Insurance reviewed Visit number: 2 Medicare Ins: Medical Necessity. Follow Medicare Guidelines. Dx: B/L Shoulder Pain M25.511 Evaluating PT: Keith Mueller This patient?s care and PT of record will be transferred from Keith Mueller PT, MPT to [facility] effective as of 10/13/2022 Subjective Patient reports:. Current pain level not too bad today. Relaxed and then bringing shoulder back to neutral on the L. Cracks along the posterior R shoulder. States that he has pain when trying to sleep and rolling over it wakes. Difficulty with opening jars d/t loss of strength. Patient identified by name and date of . Precautions: PMH; hx of bladder CA, no active CA currently but pt is monitored by MD 2x/year, HTN, neuropathy, OA, R THR, hx of R knee surgery, hx of lumbar ablasion, hx of chronic LBP. Precautions: No heated modalities due to CA hx and high reoccurrence rate. Treatment Time in clinic started at 3:30 Time in clinic ended at 4:15 Total time in clinic is 46 minutes. Total timed code time is 45 minutes. Therapeutic exercise (97170): timed minutes 25, units 2 . Shoulder Kathy 2 min Seated table slides flex 2 x 10 (N) Standing SB ROM: (N) - HABD/HADD - CW/CCW - Flexion Therabar Red N's and U's 2 x 10 (N) . Manual Therapy (84456): timed minutes 20, units 1 . PROM b/l shoulders all planes 20 min. 'Scores and Scales' Signatures Electronically signed by : Lydia Lang COLLEGE ARCHIVIST; Oct 19 2022 4:21PM EST (Author) Electronically signed by : Shakeel Mueller, PT; Oct 19 2022 5:32PM EST [facility] Initial Evaluationon 05-0 PT Initial Evaluation Therapy Diagnosis Assessed Chronic left shoulder pain (719.41,338.29) (M25.512,G89.29) Chronic right shoulder pain (719.41,338.29) (M25.511,G89.29) Plan of Care Goals: Goals set and discussed today. LTG's: 1) Improve b/l shoulder strength from 4-/5 to >= 4+/5 throughout in order to facilitate ability to reach overhead and lift objects. 4-6 weeks 2) Improve b/l shoulder PROM to >= 165 deg flex/abd and 80 deg ER/IR in order to better reach overhead or behind back. 4-6 weeks 3) Improve b/l shoulder pain from 5/10 to <= 3/10 with activity in order to improve QOL. 4-6 weeks 4) Improve quick dash score by >= 5 points in order to improve QOL. 4-6 weeks 5) The pt will improve ability to raise arm/shoulder overhead, reach at various angles, lift/carry objects, dress upper body, overhead activity and return to exercise and work around the home without significant limitation. 4-[address]) Pt/caregiver will be I and consistent with HEP with use of handout as needed in order to maximize shoulder strength and ROM/flexibility. 2-3 weeks Planned interventions include: cryotherapy, education/instruction , home program, manual therapy and therapeutic exercises . Manual Therapy including IASTM and cupping as needed. Frequency and duration: 2 time(s) a week, for 4 weeks, for 8 visits. Potential to achieve rehab goals is good Plan of care was developed with input and agreement by the patient. Assessment The pt presents with Medical Dx of B/L Shoulder Pain. Pt presents with the following deficits: increased pain, decreased strength, ROM, flexibility, balance, gait and functional ability to work around the home without L knee pain/limitation. Pt would benefit from PT services in order to improve on these deficits and to maximize strength and ability for functional activity/mobility. Clinical Presentation: Evolving with changing characteristics. Level of Complexity: low Problem List: activity limitations, ADLs/IADLs/self care skills, balance, decreased knowledge of HEP, flexibility, gait/locomotion, pain, range of motion/joint mobility and strength. Reason For Visit Initial Evaluation. Referred by: Edin Tomlinson PA-C Adult Risk Screening There are no spiritual/cultural practices/values/need s that are important to know Initial Fall Risk Screening: ADRIAN has not fallen in the last 6 months. ADRIAN does not have a fear of falling. He does not need assistance with sitting, standing or walking. Does not need assistance walking in his home. He does not need assistance in an unfamiliar setting. The patient is not using an assistive device. Fall Risk Screening: patient is not considered a fall risk. Pain Scale: On a scale of 0 to 10, the patient rates the pain at 5. Please identify location of pain: B/L Shoulder (Pain Range 5-9/10). Pain Quality: aching, sharp and tightness. The pain makes it hard for the patient to do these things: walking, exercise, sleep and house work. Living Will. Living Will: Living will on file. Healthcare POA: Health care proxy on file. Declaration of Mental Health Treatment: No mental health treatment on file. Depression/Suicide Screening: During the past 2 weeks, the patient has not felt down, depressed or hopeless. During the past 2 weeks, the patient has not felt little interest or pleasure in doing things. Insurance Insurance reviewed Visit number: 1 Medicare Ins: Medical Necessity. Follow Medicare Guidelines. Dx: L Shoulder Pain M25.511, R Shoulder pain M25.512 Evaluating PT: Keith Mueller This patient?s care and PT of record will be transferred from Keith Mueller PT, MPT to Jessica Garcia PT effective as of 10/13/2022 Subjective Current Episode of Functional Impairment and/or Pain Date of onset: 05/26/2022 Mechanism of Injury:. Pt reports that he has had a long, chronic hx of b/l shoulder pain for years but that the pain has worsened over the last 6 months. The pt reports that the pain interferes with sleep if he rolls on either shoulder and that the pain is worse with reaching out or overhead and lifting objects. Pt reports that rest and pain medication helps with the pain as well as using ice on the shoulders. Pt reports that his MD wants him to try PT rx before getting an MRI. Medical Screening: Reviewed medical history form with patient and medical screening assessed. Current Medical Management: previous therapy: PT in [place] in the past and medications for current condition: . L shoulder injection that helped approx 10 days. Precautions: PMH; hx of bladder CA, no active CA currently but pt is monitored by MD 2x/year, HTN, neuropathy, OA, R THR, hx of R knee surgery, hx of lumbar ablasion, hx of chronic LBP. Precautions: No heated modalities due to CA hx and high reoccurrence rate. Functional Assessment Prior level of function: Pt is I with all ADL's and IADL's prior. Functional limitations: reaching , participation in home management and lifting . P (more content not included)... Normal [facility] - Chemistry and C hemistry - challengeon 10-07-2022 Albumin [Mass/Vol] 4.1 g/dL Normal 3.6 - 5.1 g/dL [facility].; [facility], [facility]. Albumin/Creatinine DL <= 20 mg/L (U) [Mass ratio] 30-300 mg/g Abnormal [facility].; [facility], [facility]. Albumin/Globulin [Mass ratio] 1.2 {ratio} Normal 1.0 - 2.5 [facility].; [facility], [facility]. ALP [Catalytic activity/Vol] 82 U/L Normal 35 - 144 U/L [facility] [employer] [facility].; [facility], [facility]. ALT [Catalytic activity/Vol] 15 U/L Normal 9 - 46 U/L [facility].; [facility], [facility]. AST [Catalytic activity/Vol] 19 U/L Normal 10 - 35 U/L [facility], [facility].; [employer] [facility], [facility]. Bilirubin [Mass/Vol] 0.4 mg/dL Normal 0.2 - 1 .2 mg/dL [facility].; [facility], [facility]. Calcium [Mass/Vol] 9.1 mg/dL Normal 8.6 - 10. 3 mg/dL [facility], [facility].; [facility], [facility]. Chloride [Moles/Vol] 104 mmol/L Normal 98 - 11 0 mmol/L [facility].; [employer] [facility], [facility]. Cholesterol [Mass/Vol] 192 mg/dL Normal [facility], [facility].; [facility], [facility]. Cholesterol in HDL [Mass/Vol] 43 mg/dL Normal [facility].; [facility], [facility]. Cholesterol in LDL [Mass/Vol] 121 mg/dL Abnormal [facility] [employer] [facility].; [place] [employer] [facility], [facility]. CO2 [Moles/Vol] 24 mmol/L Normal 20 - 32 mmol/L [facility] [employer] [facility].; [facility], [facility]. Creatinine (U) [Mass/Vol] 50 mg/dL Normal [facility], [facility].; [employer] [facility], [facility]. Creatinine [Mass/Vol] 0.87 mg/dL Normal 0.70 - 1.30 mg/dL [facility].; [place] [employer] [facility], [facility]. GFR/1.73 sq M.predicted among non-blacks MDRD (S/P/Bld) [Vol rate/Area] 104 mL/min/{1.73_m2} Normal [facility].; [facility], [facility] Glucose [Mass/Vol] 90 mg/dL Normal 65 - 99 mg/dL [facility].; [facility], [facility]. Natriuretic peptide B (Bld) [Mass/Vol] 12 pg/mL Normal [facility].; [facility], [facility]. Potassium [Moles/Vol] 3.9 mmol/L Normal 3.5 - 5.3 mmol/L [facility].; [facility], [facility]. Protein [Mass/Vol] 7.5 g/dL Normal 6.1 - 8.1 g/dL [facility].; [facility], [facility]. Sodium [Moles/Vol] 137 mmol/L Normal 135 - 146 mmol/L [facility], [facility].; [facility], [facility]. Triglyceride [Mass/Vol] 161 mg/dL Abnormal [facility].; [facility], [facility]. Urea nitrogen [Mass/Vol] 13 mg/dL Normal 7 - 25 mg/dL [facility].; [facility], [facility]. Laboratory - Hematology and Cell countson 10-07-2022 HbA1c (Bld) [Mass fraction] 5.9 % Normal 4.6 - 7.1 % [facility].; [facility], [facility]. Laboratory - Urinalysison Protein Ql (U) 10 mg/dL Normal [facility].; [facility], [facility]. No Panel Informationon 10-07 BUN/CREATININE RATIO NOT APPLICABLE Normal 6 - 22 [facility].; [facility], Inc. CHOL/HDLC RATIO 4.5 Normal [facility], [facility].; [facility], [facility]. GLOBULIN 3.4 Normal 1.9 - 3.7 [facility], [facility].; [facility], Inc. NON HDL CHOLESTEROL 149 Abnormal [facility].; [facility], Inc[employer] 192 mg/dL Normal [facility], [facility].; [facility] 43 mg/dL Normal [facility] [employer], [employer].; [facility] [employer], [employer] 161 mg/dL Abnormal [facility] [employer], [employer].; [facility] [employer], [employer] 121 Abnormal [place] [employer] [facility], Inc.; [facility] [employer], [employer] 4.5 Normal [facility] [employer] [facility], [employer].; [facility] [employer], [employer] 149 Abnormal [place] [employer], [employer].; [facility] [employer] [facility], [employer] 90 mg/dL Normal 65 - 99 mg/dL [place] [employer] [facility], Inc.; [employer], [employer] 13 mg/dL Normal 7 - 25 mg/dL [facility], Inc.; [facility] [employer], [employer] 0.87 mg/dL Normal 0.70 - 1.30 mg/dL [place] [employer] [facility], Inc.; [facility] [employer], [employer] 104 Normal [place] [employer] [facility], Inc.; [employer], [employer] NOT APPLICABLE Normal 6 - 22 [facility], Inc.; [employer], [employer] 137 mmol/L Normal 135 - 146 mmol/L [place] [employer] [facility], Inc.; [facility] [employer], [employer] 3.9 mmol/L Normal 3.5 - 5.3 mmol/L [place] [employer] [facility], Inc.; [employer], [employer] 104 mmol/L Normal 98 - 110 mmol/L [place] [employer] [facility], Inc.; [facility] [employer], [employer] 24 mmol/L Normal 20 - 32 mmol/L [place] [employer], [employer].; [facility] [facility], [employer] 9.1 mg/dL Normal 8.6 - 10.3 mg/dL [place] [employer] [facility], Inc.; [employer], [employer] 7.5 g/dL Normal 6.1 - 8.1 g/dL [place] [employer], [employer].; [employer], [employer] 4.1 g/dL Normal 3.6 - 5.1 g/dL [facility] [employer], [employer].; [employer], [employer] 3.4 Normal 1.9 - 3.7 [facility] [employer] [facility], [employer].; [employer], [employer] 1.2 Normal 1.0 - 2.5 [facility] [employer], [employer].; [employer], [employer] 0.4 mg/dL Normal 0.2 - 1.2 mg/dL [facility], Inc.; [facility] [employer] Inc. 82 U/L Normal 35 - 144 U/L [facility].; [facility] Inc. 19 U/L Normal 10 - 35 U/L [facility] [employer] [facility].; [facility], Inc[employer] 15 U/L Normal 9 - 46 U/L [facility] [employer] [facility].; [facility]. 12 pg/mL Normal [facility] [employer] [facility].; [facility]. Laboratory - Hematology and Cell countson 04-08-2022 HbA1c (Bld) [Mass fraction] 5.6 % Normal 4.6 - 7.1 % [facility].; [facility]. UA DIP, URINE (POC)on 2021 BILIRUBIN UA (POCT) Negative Negative [facility] CLARITY UA (POCT) Clear [facility] COLOR UA (POCT) Yellow [facility] GLUCOSE UA (POCT) Negative Negative mg/dL [facility] HEMOGLOBIN/BLOOD UA (POCT) Moderate Abnormal Negative [facility] KETONE UA (POCT) Negative Negative mg/dL [facility] LEUKOCYTES UA (POCT) Small Abnormal Negative [facility] NITRITE UA (POCT) Negative Negative [facility] PH UA (POCT) 6.0 4.5 - 8.0 [facility] Protein Ql (U) Trace Abnormal Negative mg/dL [facility] SPECIFIC GRAVITY UA (POCT) 1.015 1.005 - 1.030 [facility] UROBILINOGEN UA (POCT) 0.2 E.U./dL Normal E.U./dL [facility] UA DIP, URINE (POC)on 2021 BILIRUBIN UA (POCT) Negative Negative [facility] CLARITY UA (POCT) [facility] COLOR UA (POCT) Yellow [facility] GLUCOSE UA (POCT) Negative Negative mg/dL [facility] HEMOGLOBIN/BLOOD UA (POCT) Negative Negative [facility] KETONE UA (POCT) Negative Negative mg/dL [facility] LEUKOCYTES UA (POCT) Negative Negative [facility] NITRITE UA (POCT) Negative Negative [facility] PH UA (POCT) 6.0 4.5 - 8.0 [facility] Protein Ql (U) Negative Negative mg/dL [facility] SPECIFIC GRAVITY UA (POCT) 1.010 1.005 - 1.030 [facility] UROBILINOGEN UA (POCT) 0.2 E.U./dL Normal E.U./dL [facility] CV VENOUS BILATERAL LOWERon 09-16-2021 CV VENOUS BILATERAL LOWER [place] [address] Patient: ADRIAN APONTE Phone#: : 1970 Age: 50 Gender: M Pt. Type: Out Account: [id number] Location: Ordering: [facility] Exam Date: 09/16/202112:48 Family Phys: Charge Code: [id number] Physician: Appling Order #: [id number] DLP Dose#: PROCEDURE: VENOUS DOPPLER BILAT LEG COMPARISON: None. INDICATIONS: swelling/pain TECHNIQUE: Color duplex Doppler ultrasound evaluation analysis was performed in the usual manner. SUPPLY PLANNER: GILBERTO RISK FACTORS FOR VENOUS DISEASE: Previous DVT or SVT Blood thinner Other Pain and swelling EXAMINATION: RIGHT +Present -Reduced o Absent LEFT SPONT PHASIC AUG REFLUX COMP SPONT PHASIC AUG REFLUX COMP + + + o + CFV + + + o + + SFJ + + + + o + FV (prox) + + + o + + FV (mid) + + FV (dist) + + + + o + POP V + + + o + + + + o + T/P TRUNK + + + o + + + + o + PTV + + + o + + + + o + PERONEAL V + + + o + + GSV + GASTROC SOLEAL V SUPPLY PLANNER'S NOTES: Technically difficult study due to body habitus Continued Report - Page 2 of 2 Patient: ADRIAN APONTE Hernan MCLAIN Phone#: : 1970 Age: 50 Gender: M Pt. Type: Out Account: [id number] Location: Ordering: [facility] Exam Date: 09/16/2021/12:48 Family Phys: Charge Code: [id number] Physician: Appling Order #: [id number] DLP Dose#: FINDINGS: THROMBI: None visible. COMPRESSIBILITY: Normal. OTHER: Negative. CONCLUSION: 1. There is no evidence of superficial or deep vein thrombus. Dictated by: Yolanda Chi MD on 09/16/2021 at 15:47 Approved by: Yolanda Chi MD on 09/16/2021 at 15:50 Normal [facility] Laboratory - Chemistry and C hemistry - challengeon 09-16-2021 Albumin [Mass/Vol] 4.2 g/dL Normal 3.6 - 5.1 g/dL [place] [employer] [facility], [facility].; [employer], [employer]. Albumin/Creatinine DL <= 20 mg/L (U) [Mass ratio] 30-300 mg/g Abnormal [employer], [employer].; [employer], [employer]. Albumin/Globulin [Mass ratio] 1.3 {ratio} Normal 1.0 - 2.5 [place] [employer], [employer].; [employer], [employer]. ALP [Catalytic activity/Vol] 65 U/L Normal 35 - 144 U/L [employer], [employer]. ALT [Catalytic activity/Vol] 26 U/L Normal 9 - 46 U/L [employer].; [employer], [employer]. AST [Catalytic activity/Vol] 34 U/L Normal 10 - 35 U/L [employer], [employer].; [employer], [employer]. Bilirubin [Mass/Vol] 0.4 mg/dL Normal 0.2 - 1 .2 mg/dL [employer], [employer].; [employer], [employer]. Calcium [Mass/Vol] 9.1 mg/dL Normal 8.6 - 10. 3 mg/dL [employer], [employer].; [employer], [employer]. Chloride [Moles/Vol] 105 mmol/L Normal 98 - 11 0 mmol/L [employer], [employer].; [employer], [employer] Cholesterol [Mass/Vol] 191 mg/dL Normal [employer], [employer].; [employer], [employer] Cholesterol in HDL [Mass/Vol] 29 mg/dL Abnormal [employer], [employer].; [employer], [employer] Cholesterol in LDL [Mass/Vol] 124 mg/dL Abnormal [employer], [employer].; [facility], [facility]. CO2 [Moles/Vol] 23 mmol/L Normal 20 - 32 mmol/L [facility], [facility].; [facility], [facility] Creatinine (U) [Mass/Vol] 300 mg/dL Normal [facility].; [facility], [facility]. Creatinine [Mass/Vol] 0.93 mg/dL Normal 0.70 - 1.33 mg/dL [facility], [facility].; [facility], [facility] GFR/1.73 sq M.predicted among blacks MDRD (S/P/Bld) [Vol rate/Area] 110 mL/min/{1.73_m2} Normal [facility], [facility].; [facility], [facility] Glucose [Mass/Vol] 67 mg/dL Normal 65 - 99 mg/dL [facility], [facility].; [facility], [facility]. Potassium [Moles/Vol] 3.8 mmol/L Normal 3.5 - 5.3 mmol/L [facility], [facility].; [facility], [facility]. Protein [Mass/Vol] 7.5 g/dL Normal 6.1 - 8.1 g/dL [facility], [facility].; [employer] [facility], [facility]. Sodium [Moles/Vol] 138 mmol/L Normal 135 - 146 mmol/L [facility], [facility].; [facility], [facility]. Triglyceride [Mass/Vol] 237 mg/dL Abnormal [facility]; [employer] [facility], [facility] Urea nitrogen [Mass/Vol] 15 mg/dL Normal 7 - 25 mg/dL [facility] [employer] [facility].; [employer], [facility]. Laboratory - Hematology and Cell countson 09-16-2021 Basophils (Bld) [#/Vol] 0.064 10*3/uL Normal 0 - 200 {cells/uL} [facility], [facility].; [facility], [facility]. Basophils/100 WBC (Bld) 0.8 % Normal [facility] [employer] [facility].; [facility], [facility]. Eosinophils (Bld) [#/Vol] 0.008 10*3/uL Abnormal 15 - 500 {cells/uL} [facility], [facility].; [employer], [facility]. Eosinophils/100 WBC (Bld) 0.1 % Normal [facility] [employer] [facility]; [facility]. Erythrocyte distribution width (RBC) [Ratio] 13.8 % Normal 11.0 - 15.0 % [facility] [employer] [facility].; [facility], [facility]. HbA1c (Bld) [Mass fraction] 5.6 % Normal 4.6 - 7.1 % [facility], [facility].; [facility], [facility]. Hematocrit (Bld) [Volume fraction] 45.3 % Normal 38.5 - 50.0 % [facility], [facility].; [facility], [facility]. Hemoglobin (Bld) [Mass/Vol] 15.3 g/dL Normal 13.2 - 17.1 g/dL [facility], [facility].; [facility], [facility]. Lymphocytes (Bld) [#/Vol] 2.72 10*3/uL Normal 850 - 3900 {cells/uL} [facility], [facility].; [employer] [facility], [facility]. Lymphocytes/100 WBC (Bld) 34.0 % Normal [facility] [employer] [facility].; [facility], [facility]. MCH (RBC) [Entitic mass] 30.6 pg Normal 27.0 - 33.0 pg [facility] [employer] [facility].; [employer], [facility]. MCHC (RBC) [Mass/Vol] 33.8 g/dL Normal 32.0 - 36.0 g/dL [facility], [facility].; [employer], [facility]. MCV (RBC) [Entitic vol] 90.6 fL Normal 80.0 - 100.0 fL [facility] [employer] [facility].; [facility], [facility]. Monocytes (Bld) [#/Vol] 0.688 10*3/uL Normal 200 - 950 {cells/uL} [facility].; [employer] [employer] Monocytes/100 WBC (Bld) 8.6 % Normal [facility] [employer] [facility].; [facility], [facility]. Neutrophils (Bld) [#/Vol] 4.52 10*3/uL Normal 1500 - 7800 {cells/uL} [facility], [facility].; [employer], [employer] Neutrophils/100 WBC (Bld) 56.5 % Normal [facility] [employer] [facility].; [facility], [facility]. Platelet mean volume (Bld) [Entitic vol] 11.3 fL Normal 7.5 - 12.5 fL [facility].; [place] [employer]. Platelets (Bld) [#/Vol] 273 10*3/uL Normal 140 - 400 [facility] [employer] [facility].; [place] [employer], [employer]. RBC (Bld) [#/Vol] 5.00 10*6/uL Normal 4.20 - 5.8 0 {Million/uL} [facility].; [place] [employer], [employer]. WBC (Bld) [#/Vol] 8.0 10*3/uL Normal 3.8 - 10.8 [facility] [employer] [facility].; [place] [employer], [employer]. Laboratory - Urinalysison Protein Ql (U) 150 mg/L Normal [facility].; [place] [employer], [employer]. No Panel Informationon 09-16 BUN/CREATININE RATIO NOT APPLICABLE Normal 6 - 22 [facility] [employer] [facility].; [employer], [employer]. CHOL/HDLC RATIO 6.6 Abnormal [facility].; [place] [employer], [employer] eGFR NON-AFR. LIBERIAN 95 Normal [facility].; [place] [employer]. GLOBULIN 3.3 Normal 1.9 - 3.7 [facility] [employer] [facility].; [employer] [employer] NON HDL CHOLESTEROL 162 Abnormal [facility], [facility].; [employer] [employer], [employer] 191 mg/dL Normal [facility] [employer] [facility].; [employer], [employer] 29 mg/dL Abnormal [facility] [employer] [facility].; [employer], [employer] 237 mg/dL Abnormal [facility] [employer] [facility].; [employer], [employer] 124 Abnormal [facility] [employer] [facility].; [employer], [employer] 6.6 Abnormal [facility].; [place] [employer], [employer]. 162 Abnormal [place] [employer] [facility].; [employer] [employer], [employer] 67 mg/dL Normal 65 - 99 mg/dL [facility], [facility].; [employer], [employer] 15 mg/dL Normal 7 - 25 mg/dL [facility] ChildrenToppermost, Corp..; [place] [employer], [employer]. 0.93 mg/dL Normal 0.70 - 1.33 mg/dL [facility], [facility].; [facility], Inc[employer] 95 Normal [facility], [facility].; [facility], Inc[employer] 110 Normal [facility], [facility].; [facility], Inc. NOT APPLICABLE Normal 6 - 22 [facility], [facility].; [employer] [facility], Inc. 138 mmol/L Normal 135 - 146 mmol/L [facility], [facility].; [facility], Inc. 3.8 mmol/L Normal 3.5 - 5.3 mmol/L [facility], [facility].; [facility], Inc. 105 mmol/L Normal 98 - 110 mmol/L [facility], [facility].; [facility], Inc. 23 mmol/L Normal 20 - 32 mmol/L [facility], [facility].; [employer] [employer] [facility], Inc. 9.1 mg/dL Normal 8.6 - 10.3 mg/dL [facility], [facility].; [employer] [employer] [facility], Inc. 7.5 g/dL Normal 6.1 - 8.1 g/dL [facility], [facility].; [employer] [facility], Inc. 4.2 g/dL Normal 3.6 - 5.1 g/dL [facility], [facility].; [employer] [facility], Inc. 3.3 Normal 1.9 - 3.7 [facility], [facility].; [employer] [facility], Inc. 1.3 Normal 1.0 - 2.5 [facility], [facility].; [employer] [facility], Inc. 0.4 mg/dL Normal 0.2 - 1.2 mg/dL [facility], [facility].; [place] [employer] 65 U/L Normal 35 - 144 U/L [facility] [facility], [facility].; [place] [employer] [facility], Inc. 34 U/L Normal 10 - 35 U/L [facility], [facility].; [place] [employer] [facility], Inc. 26 U/L Normal 9 - 46 U/L [facility], Inc.; [employer] [employer] 8.0 Normal 3.8 - 10.8 [facility], Inc.; [facility], Inc. 5.00 {Million/uL} Normal 4.20 - 5.8 0 {Million/uL} [employer], [employer], [employer] 15.3 g/dL Normal 13.2 - 17.1 g/dL [employer], Inc.; [employer], [employer] 45.3 % Normal 38.5 - 50.0 % [employer], [employer].; [employer], [employer] 90.6 fL Normal 80.0 - 100.0 fL [employer], Inc.; [employer], [employer] 30.6 pg Normal 27.0 - 33.0 pg [employer], [employer].; [employer], [employer] 33.8 g/dL Normal 32.0 - 36.0 g/dL [employer], [employer].; [employer], [employer] 13.8 % Normal 11.0 - 15.0 % [employer], [employer].; [employer], [employer] 273 Normal 140 - 400 [employer], [employer].; [employer] 11.3 fL Normal 7.5 - 12.5 fL [employer], [employer].; [employer], [employer] 4520 {cells/uL} Normal 1500 - 7800 {cells/uL} [employer], [employer] 2720 {cells/uL} Normal 850 - 3900 {cells/uL} [employer], [employer] 688 {cells/uL} Normal 200 - 950 {cells/uL} [employer], [employer].; [employer], [employer] 8 {cells/uL} Abnormal 15 - 500 {cells/uL} [employer], [employer] 64 {cells/uL} Normal 0 - 200 {cells/uL} [employer].; [employer] 56.5 % Normal [employer].; [employer], [employer] 34.0 % Normal [employer].; [employer] 8.6 % Normal [employer], [employer].; [employer], [employer] 0.1 % Normal [employer].; [employer] 0.8 % Normal [employer], [employer].; [employer], [employer] [facility] 11-19-2020 [facility] HNO ID: [id number] Author: RUTHANN Krishna Service: Radiology Author Type: Clinical Service Greeter Type: [facility] Filed: 11/19/2020 8:20 AM Note Text: Radiology Service Progress Note DATE OF SERVICE: November 19, 2020 TIME: 8:19 AM PATIENT IDENTITY VERIFICATION COMPLETED USING TWO (2) STANDARD IDENTIFIERS: Name and Date of confirmed by patient verbally and Name and Date of confirmed by identification band. FALL SCREENING: Has the patient had 2 falls in the last year or 1 fall with injury or currently using an Ambulatory Assistive Device (Walker, Cane, Wheelchair, Crutches, etc.)? No PATIENT GENDER DATA: Male PATIENT RELEVANT IMPLANT DATA REVIEWED: Yes ALLERGIES: Reviewed and unchanged CONTRAST ALLERGY: NO. EXAM: CT -CONTRAST INDUCED NEPHROPATHY RISK FACTORS: Diabetic: Yes. Current medication(s): Metformin. Patient currently has insulin pump?: No. CREATININE: Creatinine Date Value Ref Range Status 10/07/2020 1.04 0.73 - 1.22 mg/dL Final 09/18/2018 0.89 0.73 - 1.22 mg/dL Final 09/18/2018 0.90 0.73 - 1.22 mg/dL Final eGFR-All Other Races Date Value Ref Range Status 10/07/2020 >60 . Final Comment: eGFR (Estimated GFR) Units of measure: mL/min/1.73 meters squared eGFR is derived from the reexpressed MDRD Study equation using the following parameters: serum creatinine, age, gender and race. The creatinine assay has been calibrated to be traceable to IDMS. An eGFR <60 mL/min/1.73m2 for >3 months is consistent with chronic kidney disease. Refer to KDOQI guidelines for clinical interpretation. In patients with unstable renal function, e.g. those with acute kidney injury, the eGFR may not accurately reflect actual GFR. eGFR- Date Value Ref Range Status 10/07/2020 >60 Final P.O.C.T. RESULTS: N/A November 19, 2020 TREATMENT: N/A PERIPHERAL IV DATA: Ambulatory: A peripheral IV was started in the Right forearm with a Angio cath: 22 gauge. RADIOLOGY DEPARTMENT: CT; Exam(s) Completed: Chest Abdomen Pelvis SIGNATURE: RUTHANN Krishna PATIENT NAME: Adrian Aponte Jr. DATE: November 19, 2020 TIME: 8:19 AM [facility] CT 3D POST PROCESSING11-10 CT 3D POST PROCESSING * * *Final Report* * * DATE OF EXAM: Nov 19 2020 8:22AM [facility] [place] [facility] [place] 3D POST PROCESSING / PROCEDURE REASON: C67.9-Malignant neoplasm of urinary bladder, unspecified site (HCC) * * * * Physician Interpretation * * * * EXAMINATION: CT ABDOMEN AND PELVIS WITHOUT AND WITH IV CONTRAST, INCLUDING EXCRETORY PHASE IMAGING (CT UROGRAM) 3D RECONSTRUCTIONS CLINICAL HISTORY: Hematuria. The LEFT side of bladder tumor has been resected TECHNIQUE: CT urogram protocol including unenhanced, renal parenchymal phase and excretory phase renal imaging was obtained following IV contrast. Normal saline was also administered IV. No oral contrast was given. 3D image post-processing was performed and archived at the request of the referring physician, on the CT scanner workstation without concurrent physician supervision. MQ: CTU_2 Contrast: IV: 150 ml of Omnipaque 300 IV Saline: 150 ml of 0.9% NACL Solution Oral Contrast: None CT Radiation dose: Integrated dose-length product (DLP) for this visit = 5821 mGy*cm. CT Dose Reduction Employed: Automated exposure control (AEC) COMPARISON: 09/18/2018 RESULT: Kidneys and urinary tract: Right: There are no renal calculi or masses. The opacified calices, renal pelvis and ureter are normal without dilation, filling defect, or stricture. Left: There are no renal calculi or masses. The opacified calices, renal pelvis and ureter are normal without dilation, filling defect, or stricture. Bladder: No filling defect, calculus, focal or diffuse wall thickening. CT ABDOMEN: Lower thorax: The 9 mm noncalcified pulmonary nodule in the LEFT cardiophrenic angle is again noted on image 1 is unchanged. No new nodules are seen Liver: No mass. Homogeneous texture. Biliary: No ductal dilatation is seen. . Gallbladder is unremarkable Spleen: Spleen is unremarkable. Pancreas: No mass or duct dilation. Adrenals: Adrenal glands are unremarkable. GI tract: No bowel dilatation is seen. No evidence of obstruction. Mild diverticulosis but no evidence of diverticulitis Lymph nodes: No evidence of adenopathy. Mesentery/Peritoneum: No ascites or mass. Vasculature: No evidence of dilatation of the abdominal aorta. CT PELVIS: There is been previous resection of the bladder tumor. RIGHT total hip arthroplasty causes a large amount of artifact limiting evaluation Pelvis: No mass, ascites or fluid collections. Bones/Soft Tissues: No significant findings identified. The components of the RIGHT total hip arthroplasty are in good alignment with the respective bones and each other. There is no evidence of loosening of the components. IMPRESSION: 1. Previously noted bladder tumor no longer identified. 2. The 9 mm noncalcified nodule in the LEFT cardiophrenic angle is again noted unchanged. No new lung nodules are seen on this study. 3. No evidence of recurrence [facility] Pharmacist[facility] Transcribe Date/Time: Nov 19 2020 11:29A Dictated by : KATE SIU DO This examination was interpreted and the report reviewed and electronically signed by: KATE SIU DO on Nov 27 2020 4:22PM EST [id number] N [facility] CT UROGRAM WO/W IVCONon 06-1 CT UROGRAM WO/W IVCON * * *Final Report* * * DATE OF EXAM: Nov 19 2020 8:29AM [facility] [place] [facility] - CT UROGRAM WO/W IVCON / PROCEDURE REASON: C67.9-Malignant neoplasm of urinary bladder, unspecified site (HCC) * * * * Physician Interpretation * * * * EXAMINATION: CT ABDOMEN AND PELVIS WITHOUT AND WITH IV CONTRAST, INCLUDING EXCRETORY PHASE IMAGING (CT UROGRAM) 3D RECONSTRUCTIONS CLINICAL HISTORY: Hematuria. The LEFT side of bladder tumor has been resected TECHNIQUE: CT urogram protocol including unenhanced, renal parenchymal phase and excretory phase renal imaging was obtained following IV contrast. Normal saline was also administered IV. No oral contrast was given. 3D image post-processing was performed and archived at the request of the referring physician, on the CT scanner workstation without concurrent physician supervision. MQ: CTU_2 Contrast: IV: 150 ml of Omnipaque 300 IV Saline: 150 ml of 0.9% NACL Solution Oral Contrast: None CT Radiation dose: Integrated dose-length product (DLP) for this visit = 5821 mGy*cm. CT Dose Reduction Employed: Automated exposure control (AEC) COMPARISON: 09/18/2018 RESULT: Kidneys and urinary tract: Right: There are no renal calculi or masses. The opacified calices, renal pelvis and ureter are normal without dilation, filling defect, or stricture. Left: There are no renal calculi or masses. The opacified calices, renal pelvis and ureter are normal without dilation, filling defect, or stricture. Bladder: No filling defect, calculus, focal or diffuse wall thickening. CT ABDOMEN: Lower thorax: The 9 mm noncalcified pulmonary nodule in the LEFT cardiophrenic angle is again noted on image 1 is unchanged. No new nodules are seen Liver: No mass. Homogeneous texture. Biliary: No ductal dilatation is seen. . Gallbladder is unremarkable Spleen: Spleen is unremarkable. Pancreas: No mass or duct dilation. Adrenals: Adrenal glands are unremarkable. GI tract: No bowel dilatation is seen. No evidence of obstruction. Mild diverticulosis but no evidence of diverticulitis Lymph nodes: No evidence of adenopathy. Mesentery/Peritoneum: No ascites or mass. Vasculature: No evidence of dilatation of the abdominal aorta. CT PELVIS: There is been previous resection of the bladder tumor. RIGHT total hip arthroplasty causes a large amount of artifact limiting evaluation Pelvis: No mass, ascites or fluid collections. Bones/Soft Tissues: No significant findings identified. The components of the RIGHT total hip arthroplasty are in good alignment with the respective bones and each other. There is no evidence of loosening of the components. IMPRESSION: 1. Previously noted bladder tumor no longer identified. 2. The 9 mm noncalcified nodule in the LEFT cardiophrenic angle is again noted unchanged. No new lung nodules are seen on this study. 3. No evidence of recurrence Staff Pharmacist: [facility] Transcribe Date/Time: Nov 19 2020 11:29A Dictated by : KATE SIU DO This examination was interpreted and the report reviewed and electronically signed by: KATE SIU DO on Nov 19 2020 11:40AM EST [id number] N Normal [facility] Laboratory - Chemistry and C hemistry - challengeon 04-09-2020 Calcium [Mass/Vol] 9.0 mg/dL Normal 8.6 - 10. 3 mg/dL [facility], [facility].; [facility], [facility] Chloride [Moles/Vol] 104 mmol/L Normal 98 - 11 0 mmol/L [facility], [facility].; [employer] [facility], [employer]. Cholesterol [Mass/Vol] 184 mg/dL Normal [facility].; [facility]. Cholesterol in HDL [Mass/Vol] 32 mg/dL Abnormal [facility].; [facility]. Cholesterol in LDL [Mass/Vol] 116 mg/dL Abnormal [facility].; [place] [employer] [facility], [facility]. CO2 [Moles/Vol] 24 mmol/L Normal 20 - 32 mmol/L [facility].; [facility], [facility]. Creatinine [Mass/Vol] 0.94 mg/dL Normal 0.70 - 1.33 mg/dL [facility].; [facility], [facility]. GFR/1.73 sq M.predicted among blacks MDRD (S/P/Bld) [Vol rate/Area] 109 mL/min/{1.73_m2} Normal [facility].; [facility], [facility] Glucose [Mass/Vol] 142 mg/dL Abnormal 65 - 99 mg/dL [facility].; [facility], [facility]. Potassium [Moles/Vol] 4.3 mmol/L Normal 3.5 - 5.3 mmol/L [facility].; [facility], [facility]. Sodium [Moles/Vol] 136 mmol/L Normal 135 - 146 mmol/L [facility].; [place] [employer] [facility], [facility]. Triglyceride [Mass/Vol] 254 mg/dL Abnormal [facility].; [facility] [employer], [facility]. Urea nitrogen [Mass/Vol] 13 mg/dL Normal 7 - 25 mg/dL [facility].; [employer] [employer], [facility]. Laboratory - Hematology and Cell countson 04-09-2020 HbA1c (Bld) [Mass fraction] 6.6 % Normal 4.6 - 7.1 % [facility].; [place] [employer], [facility]. No Panel Informationon 04-09 BUN/CREATININE RATIO NOT APPLICABLE Normal 6 - 22 [facility].; [employer], Inc. CHOL/HDLC RATIO 5.8 Abnormal [facility].; [place] [employer] eGFR NON-AFR. LIBERIAN 94 Normal [facility].; [place] [employer], [employer]. NON HDL CHOLESTEROL 152 Abnormal [facility], Inc.; [place] [employer], Inc. 184 mg/dL Normal [facility], Inc.; [facility], Inc. 32 mg/dL Abnormal [facility], Inc.; [facility], Inc. 254 mg/dL Abnormal [facility], Inc.; [employer] [employer] [facility], Inc. 116 Abnormal [facility], Inc.; [place] [employer], Inc. 5.8 Abnormal [facility], Inc.; [employer], [employer]. 152 Abnormal [place] [employer] [facility], Inc.; [place] [employer] [facility], Inc. 142 mg/dL Abnormal 65 - 99 mg/dL [facility], Inc.; [place] [employer] [facility], Inc. 13 mg/dL Normal 7 - 25 mg/dL [facility], Inc.; [place] [employer] [facility], Inc. 0.94 mg/dL Normal 0.70 - 1.33 mg/dL [facility], Inc.; [employer] [employer], [employer] 94 Normal [facility], Inc.; [employer], [employer] 109 Normal [place] [employer] [facility], Inc.; [place] [employer], [employer]. NOT APPLICABLE Normal 6 - 22 [facility], Inc.; [place] [employer], [employer]. 136 mmol/L Normal 135 - 146 mmol/L [facility], Inc.; [place] [employer], [employer]. 4.3 mmol/L Normal 3.5 - 5.3 mmol/L [facility], Inc.; [place] [employer], Inc. 104 mmol/L Normal 98 - 110 mmol/L [facility], Inc.; [employer], [employer]. 24 mmol/L Normal 20 - 32 mmol/L [place] [employer] [facility], Inc.; [employer], [employer]. 9.0 mg/dL Normal 8.6 - 10.3 mg/dL [place] [employer] [facility], Inc.; [employer] [employer], [employer]. Laboratory - Hematology and Cell countson 11-11-2019 HbA1c (Bld) [Mass fraction] 5.6 % Normal 4.6 - 7.1 % [employer] [employer] [facility], Inc.; [employer], [employer]. Laboratory - Hematology and Cell countson 10-18-2019 HbA1c (Bld) [Mass fraction] 5.5 % Normal 4.6 - 7.1 % [facility]; [facility] Laboratory - Hematology and Cell countson 07-19-2019 ESR (Bld) [Velocity] 80 mm/h Abnormal 0 - 20 mm/h [facility]; [facility], [facility] HbA1c (Bld) [Mass fraction] 5.9 % Normal 4.6 - 7.1 % [facility]; [facility], [facility] Laboratory - Serology - non- microon 07-19-2019 Nuclear IgG FC Qn (S) Negative Normal [facility]; [facility], [facility] Rheumatoid factor Aggl (Syn fld) [Titer] <10 Normal 0 - 15 [iU] [facility]; [facility], [facility] Laboratory - Hematology and Cell countson 04-11-2019 HbA1c (Bld) [Mass fraction] 9.4 % Abnormal 4.6 - 7.1 % [facility]; [facility], [facility] Laboratory - Hematology and Cell countson 11-08-2018 HbA1c (Bld) [Mass fraction] 6.9 % Normal 4.6 - 7.1 % [facility]; [facility], [facility] Laboratory - Chemistry and C hemistry - challengeon 09-20-2018 Anion gap [Moles/Vol] 12 mmol/L Normal 10 - 20 mmol/L [facility]; [facility], [facility] Basic metabolic 2000 panel BMP with eGFR Normal [facility]; [facility], [facility] Calcium [Mass/Vol] 9.5 mg/dL Normal 8.6 - 10. 2 mg/dL [facility], [facility].; [facility], [facility]. Chloride [Moles/Vol] 100 mmol/L Normal 98 - 10 7 mmol/L [facility], [facility].; [facility], [facility]. CO2 [Moles/Vol] 25.8 mmol/L Normal 21.0 - 31.0 mmol/L [facility], [facility].; [facility], [facility]. Creatinine [Mass/Vol] 0.9 mg/dL Normal 0.7 - 1.3 mg/dL [facility], [facility].; [facility], [facility]. GFR/1.73 sq M.predicted among blacks MDRD (S/P/Bld) [Vol rate/Area] mL/min/{1.73_m2} Normal 60 - 999 {ML/MINUTE} [employer].; [employer]. GFR/1.73 sq M.predicted MDRD (S/P/Bld) [Vol rate/Area] mL/min/{1.73_m2} Normal 60 - 999 {ML/MINUTE} [employer].; [employer]. Glucose [Mass/Vol] 141 mg/dL Abnormal 74 - 106 mg/dL [employer].; [employer], [employer]. Potassium [Moles/Vol] 4.0 mmol/L Normal 3.5 - 5.1 mmol/L [place] [employer].; [employer], [employer]. Sodium [Moles/Vol] 134 mmol/L Abnormal 136 - 145 mmol/L [place] [employer].; [employer]. Urea nitrogen [Mass/Vol] 12 mg/dL Normal 6 - 20 mg/dL [employer].; [employer]. No Panel Informationon 09-20 AGE 47 {years} Normal [employer].; [employer]. 12 mmol/L Normal 10 - 20 mmol/L [place] [employer].; [employer]. 47 {years} Normal [employer].; [employer]. Laboratory - Chemistry and C hemistry - challengeon 08-09-2018 Albumin/Creatinine DL <= 20 mg/L (U) [Mass ratio] mg/g Normal [employer].; [employer]. Bilirubin Ql (U) Negative Normal [facility].; [employer], [employer]. Creatinine (U) [Mass/Vol] 100 mg/dL Normal [employer].; [employer], [employer]. Ketones Ql (U) Negative Normal [facility] [employer], [employer]. pH (U) 5.5 [pH] Normal [employer].; [employer]. Specific gravity (U) [Rel density] 1.015 Normal [employer].; [employer]. Urobilinogen Qn (U) 0.2 mg/dL Normal [employer].; [employer]. Laboratory - Hematology and Cell countson 08-09-2018 HbA1c (Bld) [Mass fraction] 6.8 % Normal 4.6 - 7.1 % [employer].; [employer]. Hemoglobin Ql (U) moderate Abnormal [employer].; [employer]. Laboratory - Specimen inform ationon 08-09-2018 Appearance (U) clear Normal [employer].; [employer]. Color (U) yellow Normal [employer]; [employer]. Laboratory - Urinalysison Glucose Test strip (U) [Mass/Vol] Negative Normal [employer].; [employer]. Leukocyte esterase Test strip Ql (U) Negative Normal [employer].; [employer]. Nitrite Ql (U) Negative Normal [employer].; [employer]. Protein Ql (U) 30 mg/dL Abnormal [facility] [employer].; [employer]. Protein Ql (U) Negative Normal [facility] [employer].; [employer]. Laboratory - Chemistry and C hemistry - challengeon 03-29-2018 Bilirubin Ql (U) Negative Normal [facility].; [employer]. Ketones Ql (U) Negative Normal [facility] [employer]am [employer].; [employer]. pH (U) 6.5 [pH] Normal [employer].; [employer]. Specific gravity (U) [Rel density] 1.010 Normal [employer].; [employer]. Urobilinogen Qn (U) 0.2 mg/dL Normal [employer].; [employer]. Laboratory - Hematology and Cell countson 03-29-2018 Hemoglobin Ql (U) small Abnormal [employer].; [employer]. Laboratory - Specimen inform ationon 03-29-2018 Appearance (U) clear Normal [facility] [employer].; [employer]. Color (U) yellow Normal [employer]; [employer]. Laboratory - Urinalysison Glucose Test strip (U) [Mass/Vol] Negative Normal [place] [employer].; [employer]. Leukocyte esterase Test strip Ql (U) Negative Normal Anne [employer].; [employer]. Nitrite Ql (U) Negative Normal [facility] [employer]. Protein Ql (U) Negative Normal [facility] [employer]. Laboratory - Chemistry and C hemistry - challengeon 03-19-2018 Bilirubin Ql (U) small Abnormal [facility].; [employer]. Ketones Ql (U) Negative Normal [facility].; [employer]. pH (U) 6.0 [pH] Normal [employer]; [employer]. Specific gravity (U) [Rel density] 1.020 Normal [employer]; [employer]. Urobilinogen Qn (U) .2 mg/dL Normal [facility] [employer]; [employer]. Laboratory - Hematology and Cell countson 03-19-2018 HbA1c (Bld) [Mass fraction] 7.1 % Normal 4.6 - 7.1 % [place] [employer]; [employer]. Hemoglobin Ql (U) large Abnormal [place] [employer].; [employer]. Laboratory - Microbiology an d Antimicrobial susceptibilityon 03-19-2018 Bacteria identified Cx Nom (U) SEE NOTE Normal [employer]; [employer]. Laboratory - Specimen inform ationon 03-19-2018 Appearance (U) Cloudy Abnormal [facility].; [employer]. Color (U) red Abnormal Anne [employer].; [employer]. Specimen source Nom (Unsp spec) URINE-CLEAN CATCH Normal [employer]; [employer] Laboratory - Urinalysison Glucose Test strip (U) [Mass/Vol] Negative Normal [employer].; [employer]. Leukocyte esterase Test strip Ql (U) trace Normal [employer].; [employer]. Nitrite Ql (U) Negative Normal [facility] [employer].; [employer]. Protein Ql (U) 100 mg/dL Abnormal [employer]; interspireSubmit. CT Knee w/o Contrast Righton 12-22-2017 CT Knee w/o Contrast Right Exam Date/Time:12/21/2017 13:40 EDTReason for Exam:FX RIGHT FEMURReportSTUDY:CT Knee w/o Contrast Right; 12/21/2017 1:40 pmINDICATION:FX RIGHT FEMUR.COMPARISON:Ther e are no comparison studies.. [id number] CLINICIAN:Dameon Ruvalcaba:Sandra iguous axial CT images were obtained at 2 mm slice thickness through the right knee without intravenous contrast administration. Coronal and sagittal reformatted images were performed.FINDINGS:OS SEOUS STRUCTURES: There is an oblique fracture through [...] space narrowing, subchondral sclerosis and marginal osteophyte formation.SOFT TISSUES: Prepatellar subcutaneous soft tissues swelling/edema is present. There is a small joint effusion present as well.Evaluation is limited by the lack of intravenous contrast. Within this limitation, no gross mass, fluid collection or lymphadenopathy is identified.IMPRESSION :1. There is an oblique fracture through the [...] available for direct comparison to evaluate interval healing.Exam Date/Time:12/21/2017 13:40 EDTReport2. Prepatellar subcutaneous soft tissues swelling/edema is present. There is a small joint effusion present as well. FINAL REPORT Dictated: 12/22/2017 3:09 pm Huy NGUYEN, Asif ESigned (Electronic Signature): 12/22/2017 3:09 pmSigned by: Asif Son MD Technologist: KAREEM Normal [facility] - Hematology and Cell countson 11-09-2017 HbA1c (Bld) [Mass fraction] 6.0 % Normal 4.6 - 7.1 % [employer], [employer].; [employer], [employer]. Office Visit: KHALIF and restri ctive lung diseaseon 12-21-2016 Documentation of current medications (procedure) Done Invalid Interpretation Code [facility] Work Phone: Tobacco smoking status NHIS Never Invalid Interpretation Code [facility] Work Phone: Tobacco use [facility] Former smoker Invalid Interpretation Code [facility] Work Phone: Laboratory - Chemistry and C hemistry - challengeon 07-08-2016 Bilirubin Ql (U) Negative Normal [facility], [employer].; [employer], [employer]. Ketones Ql (U) Negative Normal [employer] [employer], [employer].; [employer] pH (U) 6.0 [pH] Normal [employer], [employer].; [employer] Specific gravity (U) [Rel density] 1.025 Normal [employer], [employer].; [employer] Urobilinogen Qn (U) 0.2 mg/dL Normal [employer], [employer].; [employer], [employer]. Laboratory - Hematology and Cell countson 07-08-2016 Hemoglobin Ql (U) moderate Abnormal [employer], [employer].; [employer] Laboratory - Specimen inform ationon 07-08-2016 Appearance (U) cloudy Abnormal [employer].; [employer] Color (U) dark Yellow Normal [employer], [employer].; [employer], [employer] Laboratory - Urinalysison Glucose Test strip (U) [Mass/Vol] Negative Normal [facility].; [place] [employer]. Leukocyte esterase Test strip Ql (U) Negative Normal [facility].; [place] [employer], [employer]. Nitrite Ql (U) Negative Normal [facility] EastTopp[facility], Corp..; [place] [employer], [employer]. Protein Ql (U) Negative Normal [facility] EastTo[facility], Corp..; [employer]. Laboratory - Chemistry and C hemistry - challengeon 11-17-2015 Albumin [Mass/Vol] 3.8 g/dL Normal 3.4 - 4.8 g/dL [facility].; [place] [employer], [employer]. Albumin [Mass/Vol] 1.1 g/dL Normal 0.9 - 1.6 [facility].; [place] [employer]. ALP [Catalytic activity/Vol] 47 U/L Normal 38 - 126 U/L [facility].; [place] [employer], [employer]. ALT [Catalytic activity/Vol] 33 U/L Normal 10 - 40 U/L [facility].; [place] [employer], [employer]. ALT No additional P-5'-P [Catalytic activity/Vol] 33 U/L Normal 10 - 40 U/L [facility].; [place] [employer], [employer]. Anion gap [Moles/Vol] 11 mmol/L Normal 10 - 20 mmol/L [facility].; [place] [employer]. AST [Catalytic activity/Vol] 24 U/L Normal 13 - 39 U/L [facility].; [place] [employer], [employer]. Bilirubin [Mass/Vol] 0.4 mg/dL Normal 0.0 - 1 .5 mg/dL [place] [employer] [facility].; [employer], [employer]. Bilirubin [Mass/Vol] Negative Normal [facility].; [place] [employer], [employer]. Calcium [Mass/Vol] 9.0 mg/dL Normal 8.6 - 10. 2 mg/dL [facility].; [place] [employer], [employer]. Chloride [Moles/Vol] 102 mmol/L Normal 98 - 10 7 mmol/L [facility].; [facility], [facility]. CO2 [Moles/Vol] 25.0 mmol/L Normal 13.0 - 29.0 mmol/L [facility]; [facility], [facility]. Comprehensive metabolic 2000 panel CMP with eGFR Normal [facility]; [facility], [facility] Creatinine [Mass/Vol] 1.0 mg/dL Normal 0.7 - 1.3 mg/dL [facility].; [facility], [facility] CRP [Mass/Vol] 5.60 mg/dL Abnormal 0.00 - 1.00 mg/dL [facility].; [facility], [facility]. GFR/1.73 sq M.predicted among blacks MDRD (S/P/Bld) [Vol rate/Area] mL/min/{1.73_m2} Normal 60 - 999 {ML/MINUTE} [facility], [facility].; [facility], [facility]. GFR/1.73 sq M.predicted MDRD (S/P/Bld) [Vol rate/Area] mL/min/{1.73_m2} Normal 60 - 999 {ML/MINUTE} [facility].; [facility], [facility]. Globulin (S) [Mass/Vol] 3.4 g/dL Normal 1.5 - 3.8 g/dL [facility].; [facility], [facility]. Glucose [Mass/Vol] 122 mg/dL Abnormal 74 - 106 mg/dL [facility].; [facility], [facility]. Glucose [Mass/Vol] NORM Normal [facility]; [facility], [facility] pH (Bld) 6 [pH] Normal [facility]; [facility], [facility] Potassium [Moles/Vol] 3.9 mmol/L Normal 3.5 - 5.1 mmol/L [facility].; [facility], [facility]. Protein [Mass/Vol] 7.2 g/dL Normal 6.4 - 8.3 g/dL [facility], [facility].; [facility], [facility]. Protein [Mass/Vol] Negative Normal [facility]; [facility], [facility] Sodium [Moles/Vol] 134 mmol/L Abnormal 136 - 145 mmol/L [facility].; [employer] Urea nitrogen [Mass/Vol] 13 mg/dL Normal 6 - 20 mg/dL [place] [employer] [facility].; [place] [employer], [facility] Urea nitrogen/Creatinine [Mass ratio] 13 {ratio} Normal 0 - 30 {ratio} [facility] [employer].; [employer] Laboratory - Hematology and Cell countson 11-17-2015 Basophils (Bld) [#/Vol] 0.10 {3/UL} Normal 0.00 - 0.10 {3/UL} [facility].; [place] [employer] Basophils/100 WBC (Bld) 1.1 % Normal 0.0 - 2.0 % [place] [employer] [facility].; [employer]. CBC W Auto Differential panel (Bld) CBC Normal [place] [employer] [facility].; [place] [employer], [employer] Eosinophils (Bld) [#/Vol] 0.10 {3/UL} Normal 0.00 - 0.50 {3/UL} [place] [employer] [facility].; [employer]. Eosinophils/100 WBC (Bld) 0.9 % Normal 0.0 - 7.0 % [place] [employer].; [employer], [employer]. Erythrocyte distribution width (RBC) [Ratio] 13.6 % Normal 12.0 - 15.6 % [place] [employer].; [employer], [employer]. Hematocrit (Bld) [Volume fraction] 43.7 % Normal 40.0 - 52.0 % [place] [employer] [facility].; [employer], [employer]. Hemoglobin (Bld) [Mass/Vol] 14.9 g/dL Normal 13.0 - 17.5 g/dL [place] [employer] [facility].; [employer], [facility] Lymphocytes (Bld) [#/Vol] 2.60 {3/UL} Normal 0.80 - 2.80 {3/UL} [place] [employer], [employer].; [employer], Inc[employer] Lymphocytes/100 WBC (Bld) 24.4 % Normal 20.0 - 45.0 % [place] [employer].; [employer], [employer]. MCH (RBC) [Entitic mass] 32 pg Normal 27 - 33 pg [place] [employer].; [employer], [employer]. MCHC (RBC) [Mass/Vol] 34 {X10_3} Normal 32 - 36 {X10_3} [place] [employer].; [employer], [employer]. MCV (RBC) [Entitic vol] 94 fL Normal 81 - 98 fL [place] [employer].; [employer], appsFreedom. Monocytes (Bld) [#/Vol] 1.00 {3/UL} Normal 0.20 - 1.00 {3/UL} [place] [employer].; [employer], [employer]. Monocytes/100 WBC (Bld) 9.4 % Normal 0.0 - 10.0 % [employer].; [employer], [employer]. Morphology Pacheco (Bld) [Interp] N/A Normal [place] [employer].; [employer], [employer]. Neutrophils (Bld) [#/Vol] 6.90 {3/UL} Normal 1.50 - 7.10 {3/UL} [employer].; [employer], [employer]. Neutrophils/100 WBC (Bld) 64.2 % Normal 46.0 - 76.0 % [employer].; [employer], [employer]. Platelet mean volume (Bld) [Entitic vol] 8.6 fL Normal 6.4 - 10.5 fL [employer].; [employer], [employer]. Platelets (Bld) [#/Vol] 270 {3/UL} Normal 150 - 450 {3/UL} [employer].; [employer], [employer]. RBC (Bld) [#/Vol] 4.66 {6/UL} Normal 4.50 - 6.0 0 {6/UL} [employer], [employer].; [employer], apps[employer]. WBC (Bld) [#/Vol] 10.8 {3/UL} Normal 4.5 - 10.8 {3/UL} [employer], Inc.; [employer], Inc. WBC (Bld) [#/Vol] 25 10*3/uL Abnormal [employer].; [employer]. Laboratory - Microbiology an d Antimicrobial susceptibilityon 11-17-2015 Bacteria identified Cx Nom (Unsp spec) NONE Normal [employer]; interspireSubmit. Laboratory - Specimen inform ationon 11-17-2015 Clarity (U) clear Normal [employer]Submit.; [employer]. Color (U) yellow Normal [employer].; [employer]. Specimen type Nom (Spec) UNSPECIFIED Normal [employer]Submit.; interspireSubmit. Laboratory - Urinalysison Crystals LM Nom (Urine sed) NONE Normal interspireSubmit.; [employer]Submit. Nitrite Ql (U) Negative Normal [facility] [employer]; inter[employer]ireSubmit. Urinalysis dipstick W Reflex Microscopic panel (U) URINALYSIS Normal [employer].; [employer]Submit. Yeast LM Ql (Urine sed) NONE Normal [employer]ireSubmit.; [employer]spireSubmit. No Panel Informationon 11-16 AGE 45 {years} Normal [employer]spireSubmit.; [employer]Submit. Amorphous NONE Normal [employer]Submit.; [employer]. Blood Negative Normal [employer]Submit.; [employer]. Casts NONE Normal [employer]Submit.; [employer]. Epi Cells NONE Normal [employer]Submit.; [employer]Submit. Ketone Negative Normal [employer]Submit.; [employer]Submit. MANUAL DIFF N/A Normal [employer]Submit.; [employer]Submit. Microscopic SEE BELOW Normal [employer]Submit.; [employer]Submit. Mucous NONE Normal [employer]Submit.; [employer]Submit. Rbc NONE Normal 0 - 3 [employer].; [employer]Submit. Sp [place] 1.020 Normal [employer]Submit.; [employer]Submit. Urobilinog NORM Normal [employer]Submit.; [employer]Submit. Wbc 1-5 Normal 0 - 5 [employer]Submit.; [employer]Submit. N/A Normal [employer].; [employer]Submit. 11 mmol/L Normal 10 - 20 mmol/L [employer]Submit.; inter[employer]ireSubmit. 45 {years} Normal [employer]Submit.; inter[employer]Submit. UNSPECIFIED Normal [employer]Submit.; [employer]. yellow Normal [employer]Submit.; [employer]Submit. clear Normal [employer]Submit.; interspireSubmit. 6 Normal [employer]Submit.; interspireSubmit. Negative Normal [employer]Submit.; [employer]Submit. NORM Normal [employer]Submit.; interspireSubmit. 1.020 Normal [employer]Submit.; interspireSubmit. 25 Abnormal interspireSubmit.; inter[employer]ireSubmit. SEE BELOW Normal [employer]Submit.; [employer]Submit. 1-5 Normal 0 - 5 [employer].; [employer]Submit. NONE Normal [employer]Submit.; [employer]Submit. Laboratory - Chemistry and C hemistry - challengeon 11-16-2015 Bilirubin Ql (U) Negative Normal [facility].; interspireSubmit. Ketones Ql (U) Negative Normal [facility] SAFCell.; inter[employer]ireSubmit. pH (U) 6.5 [pH] Normal [employer]ireSubmit.; [employer]Submit. Specific gravity (U) [Rel density] 1.020 Normal [employer]Submit.; [employer]Submit. Urobilinogen Qn (U) .2 mg/dL Normal [employer].; [employer]ireSubmit. Laboratory - Hematology and Cell countson 11-16-2015 Hemoglobin Ql (U) trace, hemolyzed Abnormal [facility] [employer].; interspireSubmit. Laboratory - Specimen inform ationon 11-16-2015 Appearance (U) clear Normal [employer].; [employer]. Color (U) yellow Normal inter[employer]ireSubmit.; interspireSubmit. Laboratory - Urinalysison Glucose Test strip (U) [Mass/Vol] Negative Normal [facility].; [place] [employer]indep [facility] HospitalToppermost, Corp.. Leukocyte esterase Test strip Ql (U) Negative Normal [facility].; [place] [employer] [facility], [employer]Freedom. Nitrite Ql (U) Negative Normal [facility].; [place] [employer], [employer]. Protein Ql (U) Negative Normal [facility].; [place] [employer], [employer]. Laboratory - Chemistry and C hemistry - challengeon 11-14-2014 Testosterone [Mass/Vol] 348 ng/dL Normal 250 - 1100 ng/dL [facility].; [place] [employer] [facility], [facility] Testosterone Free [Mass/Vol] 61.2 pg/mL Normal 35.0 - 155.0 pg/mL [facility].; [place] [employer], [facility]. Laboratory - Chemistry and C hemistry - challengeon 06-27-2014 Calcium [Mass/Vol] 8.4 mg/dL Normal 8.4 - 10. 6 mg/dL [facility].; [place] [employer] [facility]. Chloride [Moles/Vol] 105 mmol/L Normal 98 - 11 0 mmol/L [facility].; [facility] [employer]. Cholesterol [Mass/Vol] 168 mg/dL Normal 0 - 200 mg/dL [facility].; [place] [employer], [facility]. Cholesterol in HDL [Mass/Vol] 41 mg/dL Normal 40 - 60 mg/dL [facility].; [place] [employer], [employer]. Cholesterol in LDL [Mass/Vol] 105 mg/dL Normal 50.0 - 130.0 mg/dL [facility].; [place] [employer]. Cholesterol in VLDL [Mass/Vol] 22 mg/dL Normal [facility].; [place] [employer], [employer]. Cholesterol.total/Ch olesterol in HDL [Mass ratio] - Normal 0 - 5.0 [facility].; [place] [employer], [employer]. CO2 [Moles/Vol] 24.0 mmol/L Normal [facility].; [place] [employer], [employer]. Creatinine [Mass/Vol] 1.2 mg/dL Normal 0.6 - 1.4 mg/dL [facility].; [place] [employer] [facility], [employer]Freedom. Glucose [Mass/Vol] 98 mg/dL Normal 40 - 100 mg/dL [facility].; [place] [employer] [facility], [employer]Freedom. Potassium [Moles/Vol] 3.7 mmol/L Normal 3.50 - 5.00 meq/L [facility].; [place] [employer] [facility], [employer]Freedom. Sodium [Moles/Vol] 137 mmol/L Normal 136 - 145 mmol/L [facility].; [place] [employer], [employer]. Triglyceride [Mass/Vol] 108 mg/dL Normal 40 - 150 mg/dL [facility].; [place] [employer], [employer]. Urea nitrogen [Mass/Vol] 13 mg/dL Normal 7.0 - 20.0 mg/dL [facility].; [place] [employer], [employer]. Urea nitrogen/Creatinine [Mass ratio] 10.8 mg/mg Normal 0 - 30 [facility]pp[facility], Corp..; [place] [employer]. No Panel Informationon 06-27 ELECTROLYTE BALANCE - Normal [facility] HospitalTo[facility], Corp..; Anne Trutap. GFR - Normal [facility].; [place] [employer] GFR2 - Normal [facility], Corp..; [place] Apps[employer] [facility] HospitalToppermost, Corp.. - Normal [place] [employer] [facility] HospitalToppermost, Corp..; [place] [employer]. 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 Anion gap 9 mmol/L Invalid Interpretation Code [facility] Work Phone: BUN/Creatinine Ratio 13.3 mg/mg Invalid Interpretation Code [facility] Work Phone: Calcium 8.4 mg/dL Low [facility] Work Phone: Chloride 103 mmol/L Invalid Interpretation Code [facility] Work Phone: Cholesterol 168 mg/dL Invalid Interpretation Code [facility] Work Phone: CO2 23.0 mmol/L Invalid Interpretation Code [facility] Work Phone: Creatinine 1.2 mg/dL Invalid Interpretation Code [facility] Work Phone: Glucose 105 mg/dL Invalid Interpretation Code [facility] Work Phone: HDL Cholesterol 41 mg/dL Invalid Interpretation Code [facility] Work Phone: Hematocrit (HCT) 47.5 % Invalid Interpretation Code [facility] Work Phone: Hemoglobin (HGB) 16.6 g/dL High [facility] Work Phone: LDL Cholesterol 105 mg/dL Invalid Interpretation Code [facility] Work Phone: Magnesium 1.7 mg/dL Low [facility] Work Phone: Platelets 274 10*3/mm3 Invalid Interpretation Code [facility] Work Phone: Potassium 3.6 mmol/L Invalid Interpretation Code [facility] Work Phone: Sodium 135 mmol/L Low [facility] Work Phone: Triglyceride 108 mg/dL Invalid Interpretation Code [facility] Work Phone: Urea nitrogen 16 mg/dL Invalid Interpretation Code [facility] Work Phone: WBC (Leukocytes) 9.6 10*3/uL Invalid Interpretation Code [facility] Work Phone: Laboratory - Chemistry and C hemistry - challengeon 09-04-2012 Albumin [Mass/Vol] 4.5 g/dL Normal 3.6 - 5.1 g/dL [facility].; [facility]. Albumin/Globulin [Mass ratio] 1.6 {ratio} Normal 1.0 - 2.5 [facility]; [facility]. ALP [Catalytic activity/Vol] 59 U/L Normal 40 - 115 U/L [facility].; [facility]. ALT [Catalytic activity/Vol] 28 U/L Normal 9 - 60 U/L [facility].; [facility]. AST [Catalytic activity/Vol] 25 U/L Normal 10 - 40 U/L [facility], [facility].; [place] [employer] [facility], [facility]. Bilirubin [Mass/Vol] 0.4 mg/dL Normal 0.2 - 1 .2 mg/dL [facility], [facility].; [facility], [facility]. Calcium [Mass/Vol] 9.4 mg/dL Normal 8.6 - 10. 3 mg/dL [facility], [facility].; [facility], [facility]. Chloride [Moles/Vol] 105 mmol/L Normal 98 - 11 0 mmol/L [facility].; [place] [employer] [facility], [facility]. CO2 [Moles/Vol] 23 mmol/L Normal 19 - 30 mmol/L [facility], [facility].; [place] [employer] [facility], [facility]. Creatinine [Mass/Vol] 1.00 mg/dL Normal 0.60 - 1.35 mg/dL [facility], [facility].; [place] [employer] [facility], [facility]. GFR/1.73 sq M.predicted among blacks MDRD (S/P/Bld) [Vol rate/Area] 107 {ML/MIN/1.73M2} Normal [facility], [facility].; [place] [employer] [facility], [facility]. GFR/1.73 sq M.predicted MDRD (S/P/Bld) [Vol rate/Area] 92 {ML/MIN/1.73M2} Normal [facility], [facility].; [place] [employer] Globulin (S) [Mass/Vol] 2.7 g/dL Normal 1.9 - 3.7 g/dL [facility], [facility].; [place] [employer] Glucose [Mass/Vol] 86 mg/dL Normal 65 - 99 mg/dL [facility], [facility].; [place] [employer], [facility]. Potassium [Moles/Vol] 4.1 mmol/L Normal 3.5 - 5.3 mmol/L [facility], [facility].; [place] [employer] Protein [Mass/Vol] 7.2 g/dL Normal 6.1 - 8.1 g/dL [facility], [facility].; [place] [employer] Sodium [Moles/Vol] 139 mmol/L Normal 135 - 146 mmol/L [facility], [facility].; [place] [employer] [facility], [facility]. TSH Qn 1.51 m[IU]/L Normal 0.40 - 4.50 {mIU/L} [facility].; [facility] Urea nitrogen [Mass/Vol] 16 mg/dL Normal 7 - 25 mg/dL [facility].; [place] [employer] [facility], [facility] Urea nitrogen/Creatinine [Mass ratio] 16.3 mg/mg Normal 6 - 22 [facility].; [place] [employer] [facility] Laboratory - Chemistry and C hemistry - challengeon 08-06-2011 ALT [Catalytic activity/Vol] 20 U/L Normal 9 - 60 U/L [facility]; [place] [employer] [facility], [facility] Cholesterol [Mass/Vol] 181 mg/dL Normal 125 - 200 mg/dL [facility].; [facility], [facility] Cholesterol in HDL [Mass/Vol] 41 mg/dL Normal [facility], [facility]; [place] [employer] [facility], [facility] Cholesterol in LDL [Mass/Vol] 112 mg/dL Normal [facility].; [place] [employer] [facility]. Cholesterol.total/Ch olesterol in HDL [Mass ratio] 4.4 {ratio} Normal [facility].; [place] [employer] [facility] HospitalToppermost, Corp.. Triglyceride [Mass/Vol] 138 mg/dL Normal [facility].; [place] [employer] [facility] [employer] [facility] Vital Signs Date Time Vital Sign Value Performing Clinician Facility 03-29-2024 15:48-0400 Body height 180.[address] [facility], [facility].; [place] [employer] [facility]. 03-29-2024 15:48-0400 Body mass index (BMI) [Ratio] 54.53 kg/m2 [facility], [facility]; [place] [employer], [facility]. 03-29-2024 15:48-0400 Body surface area Derived from formula 2.8 m2 [facility], [facility].; [employer], [facility]. 03-29-2024 15:48-0400 Body weight 177.[address] [facility], [facility].; [employer], [facility]. 03-29-2024 15:48-0400 Diastolic blood pressure 75 mm[Hg] Mariah Deras LPN [facility], [facility].; [facility] 03-29-2024 15:48-0400 Heart rate 96 /min Mariah Deras LPN [facility].; [facility] 03-29-2024 15:48-0400 Systolic blood pressure 115 mm[Hg] Mariah Deras LPN [facility], [facility].; [facility] 02-27-2024 16:23-0400 Body height 180.3 cm Micah Reid MD Work Phone: [facility] 02-27-2024 16:23-0400 Body mass index (BMI) [Ratio] 53.98 kg/m2 Micah Reid MD Work Phone: [facility] 02-27-2024 16:23-0400 Body weight 175.54 kg Micah Reid MD Work Phone: [facility] 02-27-2024 16:23-0400 Heart rate 90 /min Micah Reid MD Work Phone: [facility] 02-27-2024 16:23-0400 Respiratory rate 20 /min Micah Reid MD Work Phone: [facility] 02-27-2024 16:23-0400 SaO2% (BldA) [Mass fraction] 95 % Micah Reid MD Work Phone: [facility] 01-24-2024 10:54-0400 Body height 180.34 cm Fariba Marquez MA [facility], [facility].; [facility] 01-24-2024 10:54-0400 Body mass index (BMI) [Ratio] 53.56 kg/m2 Fariba Marquez MA [facility], [facility].; [facility] 01-24-2024 10:54-0400 Body surface area Derived from formula 2.78 m2 Fariba Marquez MA [facility], [facility].; [facility] 01-24-2024 10:54-0400 Body temperature 98.7 [degF] Fariba Marquez MA [facility].; [facility]. 01-24-2024 10:54-0400 Body weight 174.18 kg Fariba Marquez MA [facility].; [facility]. 01-24-2024 10:54-0400 Diastolic blood pressure 80 mm[Hg] Fariba Marquez [facility].; [facility]. 01-24-2024 10:54-0400 Heart rate 91 /min Fariba Marquez MA [facility].; [facility]. 01-24-2024 10:54-0400 Inhaled oxygen concentration 21 % Fariba Alma MCKEON [facility].; [facility]. 01-24-2024 10:54-0400 SaO2% (BldA) [Mass fraction] 98 % Fariba Marquez MA [facility].; [facility] 01-24-2024 10:54-0400 Systolic blood pressure 120 mm[Hg] [facility] [employer] [facility].; [facility]. 11-28-2023 12:05-0400 Body height 180.34 cm Angeline Robertson [facility].; [facility]. 11-28-2023 12:05-0400 Body mass index (BMI) [Ratio] 53.56 kg/m2 [facility]eline [facility].; [facility]. 11-28-2023 12:05-0400 Body surface area Derived from formula 2.78 m2 Angeline [facility].; [facility]. 11-28-2023 12:05-0400 Body weight 174.18 kg Angeline Robertson [facility].; [facility]. 11-28-2023 12:05-0400 Diastolic blood pressure 65 mm[Hg] Angeline [facility].; [facility]. 11-28-2023 12:05-0400 Heart rate 89 /min Angeline Robertson RN [facility], [facility].; [facility]. 11-28-2023 12:05-0400 Inhaled oxygen concentration 21 % Angeline Robertson RN [facility], [facility].; [facility] 11-28-2023 12:05-0400 SaO2% (BldA) [Mass fraction] 96 % Angeline Robertson RN [facility], [facility].; [facility], [facility]. 11-28-2023 12:05-0400 Systolic blood pressure 101 mm[Hg] Angeline Robertson RN [facility], [facility].; [facility], [facility]. 11-22-2023 12:58-0400 Body height 180.34 cm Mariah Deras LPN [facility], [facility].; [facility], [facility]. 11-22-2023 12:58-0400 Body mass index (BMI) [Ratio] 53.97 kg/m2 Mariahrancho Deras LPN [facility], [facility].; [facility], [facility]. 11-22-2023 12:58-0400 Body surface area Derived from formula 2.79 m2 Mariah Deras LPN [facility], [facility].; [place] [employer] [facility], [facility]. 11-22-2023 12:58-0400 Body temperature 98.7 [degF] Mariahrancho Deras [employer] [facility], [facility].; [place] [employer] [facility], [facility]. 11-22-2023 12:58-0400 Body weight 175.54 kg Mariah Deras LPN [facility], [facility].; [place] [employer] [facility], [facility]. 11-22-2023 12:58-0400 Diastolic blood pressure 74 mm[Hg] Mariah Deras LPN [facility], [facility].; [employer] [facility], [employer] 11-22-2023 12:58-0400 Heart rate 90 /min Mariah Deras LPN [facility], [facility].; [place] [employer] [facility] [employer] 11-22-2023 12:58-0400 Inhaled oxygen concentration 21 % Mariah Deras LPN [facility], [facility].; [place] [employer] [facility], [facility]. 11-22-2023 12:58-0400 SaO2% (BldA) [Mass fraction] 94 % Mariah Deras LPN [facility]; [facility] 11-22-2023 12:58-0400 Systolic blood pressure 109 mm[Hg] Mariah Deras LPN [facility]; [facility] 11-07-2023 08:30-0400 Body height 180.3 cm Tierra Caal Jr., MD Work Phone: [facility] 11-07-2023 08:30-0400 Body mass index (BMI) [Ratio] 54.95 kg/m2 Tierra Caal Jr., MD Work Phone: [facility] 11-07-2023 08:30-0400 Body weight 178.72 kg Tierra Caal Jr., MD Work Phone: [facility] 10-18-2023 10:30-0400 Body temperature 96.8 [degF] Tierra Caal Jr., MD Work Phone: [facility] 10-18-2023 10:30-0400 Diastolic blood pressure 69 mm[Hg] Tierra Caal Jr., MD Work Phone: [facility] 10-18-2023 10:30-0400 Heart rate 81 /min Tierra Caal Jr., MD Work Phone: [facility] 10-18-2023 10:30-0400 Respiratory rate 16 /min Tierra Caal Jr., MD Work Phone: [facility] 10-18-2023 10:30-0400 SaO2% (BldA) [Mass fraction] 94 % Tierra Caal Jr., MD Work Phone: [facility] 10-18-2023 10:30-0400 Systolic blood pressure 112 mm[Hg] Tierra Caal Jr., MD Work Phone: [facility] 10-04-2023 15:13-0400 Body height 180.3 cm Pst 1 [facility] 10-04-2023 15:13-0400 Body mass index (BMI) [Ratio] 54.67 kg/m2 Pst [facility] 10-04-2023 15:13-0400 Body temperature 97.9 [degF] Pst 1 [facility] 10-04-2023 15:13-0400 Body weight 177.81 kg Pst 1 [facility] 10-04-2023 15:13-0400 Diastolic blood pressure 78 mm[Hg] Pst 1 [facility] 10-04-2023 15:13-0400 Heart rate 88 /min Pst 1 [facility] 10-04-2023 15:13-0400 Respiratory rate 17 /min Pst 1 [facility] 10-04-2023 15:13-0400 SaO2% (BldA) [Mass fraction] 97 % Pst 1 [facility] 10-04-2023 15:13-0400 Systolic blood pressure 112 mm[Hg] Pst 1 [facility] 09-19-2023 09:32-0400 Body height 180.3 cm Tierra Caal Jr., MD Work Phone: [facility] 09-19-2023 09:32-0400 Body weight 180.53 kg Tierra Caal Jr., MD Work Phone: [facility] 09-19-2023 09:32-0400 Diastolic blood pressure 78 mm[Hg] Tierra Caal Jr., MD Work Phone: [facility] 09-19-2023 09:32-0400 Heart rate 80 /min Tierra Caal Jr., MD Work Phone: [facility] 09-19-2023 09:32-0400 Respiratory rate 14 /min Tierra Caal Jr., MD Work Phone: [facility] 09-19-2023 09:32-0400 SaO2% (BldA) [Mass fraction] 96 % Tierra Caal Jr., MD Work Phone: [facility] 09-19-2023 09:32-0400 Systolic blood pressure 120 mm[Hg] Tierra Caal Jr., MD Work Phone: [facility] 09-12-2023 15:39-0400 Body height 180.34 cm Ricardo Joe LPN [facility], [facility].; [facility], [facility]. 09-12-2023 15:39-0400 Body mass index (BMI) [Ratio] 55.37 kg/m2 Ricardonate Joe LEDA [facility], [facility].; [facility], [facility]. 09-12-2023 15:39-0400 Body surface area Derived from formula 2.82 m2 Ricardonate Joe LEDA [facility], [facility]. 09-12-2023 15:39-0400 Body weight 180.08 kg Ricardonate Joe [employer] [facility], [facility].; [facility], [facility]. 09-12-2023 15:39-0400 Diastolic blood pressure 83 mm[Hg] Ricardo Joe LEDA [facility], [facility].; [facility], [facility]. Comment on above: Patient Position: Sitting; Cuff Location : Left Arm; Cuff Size: Standard 09-12-2023 15:39-0400 Heart rate 105 /min Ricardonate Joe LEDA [facility], [facility].; [facility], [facility]. Comment on above: Pattern: Regular 09-12-2023 15:39-0400 Systolic blood pressure 119 mm[Hg] Ricardo Joe [employer] [facility], [facility].; [facility], [facility]. Comment on above: Patient Position: Sitting; Cuff Location : Left Arm; Cuff Size: Standard 04-05-2023 10:15-0400 Body height 180.34 cm Fariba Marquez MA [facility], [facility].; [facility], [facility]. 04-05-2023 10:15-0400 Body mass index (BMI) [Ratio] 54.67 kg/m2 Fariba Marquez MA [facility], [facility].; [facility], [facility]. 04-05-2023 10:15-0400 Body surface area Derived from formula 2.81 m2 Fariba Marquez MA [facility], [facility].; [facility], [facility]. 04-05-2023 10:15-0400 Body weight 177.81 kg Fariba Marquez MA [facility], [facility].; [facility], [facility]. 04-05-2023 10:15-0400 Diastolic blood pressure 78 mm[Hg] Fariba Marquez MA [facility], [facility].; [facility]. Comment on above: Patient Position: Sitting; Cuff Location : Left Arm; Cuff Size: Standard 04-05-2023 10:15-0400 Heart rate 80 /min Fariba Marquez MA [facility].; [facility], [facility]. Comment on above: Pattern: Regular 04-05-2023 10:15-0400 Systolic blood pressure 125 mm[Hg] Fariba Marquez MA [facility].; [facility], [facility]. Comment on above: Patient Position: Sitting; Cuff Location : Left Arm; Cuff Size: Standard 03-14-2023 10:34-0400 Body height 180.3 cm Tierra Caal Jr., MD Work Phone: [facility] 03-14-2023 10:34-0400 Body weight 169.65 kg Tierra Caal Jr., MD Work Phone: [facility] 03-14-2023 10:34-0400 Diastolic blood pressure 83 mm[Hg] Tierra Caal Jr., MD Work Phone: [facility] 03-14-2023 10:34-0400 Heart rate 92 /min Tierra Caal Jr., MD Work Phone: [facility] 03-14-2023 10:34-0400 Respiratory rate 14 /min Tierra Caal Jr., MD Work Phone: [facility] 03-14-2023 10:34-0400 Systolic blood pressure 132 mm[Hg] Tierra Caal Jr., MD Work Phone: [facility] 11-11-2022 09:48-0400 Body height 180.34 cm Angeline Robertson RN [facility], [facility].; [facility]. 11-11-2022 09:48-0400 Body mass index (BMI) [Ratio] 54.53 kg/m2 Angeline Robertson RN [facility], [facility].; [facility]. 11-11-2022 09:48-0400 Body surface area Derived from formula 2.8 m2 Angeline Robertson RN [facility].; [employer] 11-11-2022 09:48-0400 Body temperature 98.7 [degF] Angeline Robertson RN [place]. Comment on above: Method: Tympanic 11-11-2022 09:48-0400 Body weight 177.36 kg Angeline Robertson RN [place] [employer] [facility]; [employer] 11-11-2022 09:48-0400 Diastolic blood pressure 76 mm[Hg] Angeline Robertson RN [place] [employer]. Comment on above: Patient Position: Sitting; Cuff Location : Right Arm; Cuff Size: Large 11-11-2022 09:48-0400 Heart rate 84 /min Angeline Robertson RN [place] [employer]. Comment on above: Pattern: Regular 11-11-2022 09:48-0400 Systolic blood pressure 114 mm[Hg] Angeline Robertson RN [place] [employer]. Comment on above: Patient Position: Sitting; Cuff Location : Right Arm; Cuff Size: Large 10-07-2022 10:47-0400 Body height 180.34 cm Angeline Robertson RN [place] [employer] 10-07-2022 10:47-0400 Body mass index (BMI) [Ratio] 51.88 kg/m2 Angeline Robertson RN [place] [employer].; [employer]. 10-07-2022 10:47-0400 Body surface area Derived from formula 2.75 m2 Angeline Robertson RN [employer].; [employer]. 10-07-2022 10:47-0400 Body weight 168.74 kg Angeline Robertson RN [place] [employer]. 10-07-2022 10:47-0400 Diastolic blood pressure 78 mm[Hg] Angeline Robertson RN [employer].; [employer]. Comment on above: Patient Position: Sitting; Cuff Location : Left Arm; Cuff Size: Large 10-07-2022 10:47-0400 Heart rate 85 /min [facility]eline [facility]; [facility] Comment on above: Pattern: Regular 10-07-2022 10:47-0400 Inhaled oxygen concentration 20 % Angeline Robertson [facility] [facility].; [facility] [employer] Comment on above: Room air 10-07-2022 10:47-0400 Inhaled oxygen concentration 21 % Angeline Robertson [facility] [employer] [facility].; [facility] [employer] Comment on above: Room air 10-07-2022 10:47-0400 SaO2% (BldA) [Mass fraction] 94 % Angeline Robertson [facility] [employer] [facility].; [facility] [employer] 10-07-2022 10:47-0400 Systolic blood pressure 110 mm[Hg] Angeline Robertson RN [facility] [employer]; [facility] [employer] Comment on above: Patient Position: Sitting; Cuff Location : Left Arm; Cuff Size: Large 09-06-2022 08:33-0400 Body height 180.3 cm Daniela Monroyishnan DO Work Phone: [facility] 09-06-2022 08:33-0400 Body weight 169.65 kg Jayram Anthony DO Work Phone: [facility] 09-06-2022 08:33-0400 Respiratory rate 20 /min Minhyram Anthony DO Work Phone: [facility] 04-21-2022 11:21-0500 Body height 180.3 cm Jayram Anthony DO Work Phone: [facility] 04-21-2022 11:21-0500 Body weight 161.48 kg Jayram Anthony DO Work Phone: [facility] 04-08-2022 08:10-0400 Body height 180.34 cm Cinthya Liz [facility]; [facility] [employer] [facility]. 04-08-2022 08:10-0400 Body mass index (BMI) [Ratio] 50.63 kg/m2 Cinthya Liz [facility] [employer] [facility].; [facility]. 04-08-2022 08:10-0400 Body surface area Derived from formula 2.72 m2 Cinthya Liz [facility] [employer] [facility].; [facility] [employer] [facility]. 04-08-2022 08:10-0400 Body weight 164.66 kg Cinthya Liz [facility] [employer] [facility].; [facility] [employer] [facility]. 04-08-2022 08:10-0400 Diastolic blood pressure 81 mm[Hg] Cinthya Liz [facility] [employer] [facility].; [facility] [employer] [facility]. Comment on above: Patient Position: Sitting; Cuff Location : Right Arm; Cuff Size: Large 04-08-2022 08:10-0400 Heart rate 75 /min Cinhtya Liz [facility] [employer] [facility].; [place] [employer] [facility] Comment on above: Pattern: Regular 04-08-2022 08:10-0400 Systolic blood pressure 122 mm[Hg] Cinthya Liz [facility] [employer] [facility].; [place] [employer] [facility] [employer] [facility]. Comment on above: Patient Position: Sitting; Cuff Location : Right Arm; Cuff Size: Large 01-27-2022 09:59-0400 Body height 180.3 cm Pst 1 [facility] 01-27-2022 09:59-0400 Body temperature 98.6 [degF] Pst 1 [facility] 01-27-2022 09:59-0400 Body weight 161.03 kg Pst 1 [facility] 01-27-2022 09:59-0400 Diastolic blood pressure 83 mm[Hg] Pst 1 [facility] 01-27-2022 09:59-0400 Heart rate 70 /min Pst 1 [facility] 01-27-2022 09:59-0400 Respiratory rate 18 /min Pst 1 [facility] 01-27-2022 09:59-0400 SaO2% (BldA) [Mass fraction] 95 % Pst 1 [facility] 01-27-2022 09:59-0400 Systolic blood pressure 132 mm[Hg] Pst 1 [facility] 01-20-2022 14:56-0400 Body height 180.3 cm Jayram Anthony DO Work Phone: [facility] 01-20-2022 14:56-0400 Body weight 163.29 kg Jayram Anthony DO Work Phone: [facility] 01-20-2022 14:56-0400 Diastolic blood pressure 85 mm[Hg] Jayram Anthony DO Work Phone: [facility] 01-20-2022 14:56-0400 Heart rate 83 /min Jayram Anthony DO Work Phone: [facility] 01-20-2022 14:56-0400 Respiratory rate 18 /min Jayram Anthony DO Work Phone: [facility] 01-20-2022 14:56-0400 Systolic blood pressure 122 mm[Hg] Jayram Anthony DO Work Phone: [facility] 11-02-2021 10:13-0400 Body height 180.3 cm Pst 1 [facility] 11-02-2021 10:13-0400 Body temperature 98.1 [degF] Pst 1 [facility] 11-02-2021 10:13-0400 Body weight 171.01 kg Pst 1 [facility] 11-02-2021 10:13-0400 Diastolic blood pressure 84 mm[Hg] Pst 1 [facility] 11-02-2021 10:13-0400 Heart rate 83 /min Pst 1 [facility] 11-02-2021 10:13-0400 Respiratory rate 18 /min Pst 1 [facility] 11-02-2021 10:13-0400 SaO2% (BldA) [Mass fraction] 96 % Pst 1 [facility] 11-02-2021 10:13-0400 Systolic blood pressure 127 mm[Hg] Pst 1 [facility] 10-21-2021 10:51-0400 Body height 180.3 cm Jayram Anthony DO Work Phone: [facility] 10-21-2021 10:51-0400 Body weight 168.74 kg Jayram Anthony DO Work Phone: [facility] 10-21-2021 10:51-0400 Diastolic blood pressure 97 mm[Hg] Daniela Cruz DO Work Phone: [facility] 10-21-2021 10:51-0400 Heart rate 81 /min Daniela Cruz DO Work Phone: [facility] 10-21-2021 10:51-0400 Respiratory rate 20 /min Daniela Cruz DO Work Phone: [facility] 10-21-2021 10:51-0400 Systolic blood pressure 150 mm[Hg] Daniela Cruz DO Work Phone: [facility] 09-16-2021 08:170400 Body height 180.34 cm Babs Paz LPN [facility], [facility].; [facility]. 09-16-2021 08:170400 Body mass index (BMI) [Ratio] 54.67 kg/m2 [facility].; [facility], [facility]. 09-16-2021 08:170400 Body surface area Derived from formula 2.81 m2 [facility]abs [facility].; [facility], [facility]. 09-16-2021 08:170400 Body temperature 98.3 [degF] Babs Paz [facility].; [place] [employer] [facility], [facility]. Comment on above: Method: Tympanic 09-16-2021 08:17040 Body weight 177.81 kg Babs Paz LPN [facility], [facility].; [employer] [facility], [facility]. 09-16-2021 08:170400 Diastolic blood pressure 77 mm[Hg] Babs Paz LPN [facility], [facility].; [place] [employer] [facility], [facility]. Comment on above: Patient Position: Sitting; Cuff Location : Right Arm; Cuff Size: Standard 09-16-2021 08:170400 Heart rate 78 /min Babs Paz LPN [facility], [facility].; [facility], [facility]. Comment on above: Pattern: Regular 09-16-2021 08:170400 Inhaled oxygen concentration 20 % Babs Paz LPN [facility], [facility].; [facility], [facility]. Comment on above: Room air 09-16-2021 08:170400 Inhaled oxygen concentration 21 % Babs Paz LPN [facility], [facility].; [facility], [facility]. Comment on above: Room air 09-16-2021 08:17-0400 SaO2% (BldA) [Mass fraction] 93 % [facility]abs [facility]Ad[facility], [facility].; [facility], [facility]. 09-16-2021 08:17-0400 Systolic blood pressure 123 mm[Hg] Babs P[facility]Ad[facility], [facility].; [place] [employer] [facility], [employer]. Comment on above: Patient Position: Sitting; Cuff Location : Right Arm; Cuff Size: Standard 03-24-2021 10:44-0400 Body height 180.34 cm Cinthya Castro LPN [facility], [facility].; [facility], [facility]. 03-24-2021 10:44-0400 Body mass index (BMI) [Ratio] 56.76 kg/m2 Cinthya Castro LPN [facility].; [facility], [facility]. 03-24-2021 10:44-0400 Body surface area Derived from formula 2.85 m2 Cinthya Castro LPN [facility], [facility].; [facility], [facility]. 03-24-2021 10:44-0400 Body weight 184.62 kg Cinthya Castro LPN [facility], [facility].; [facility], [facility]. 03-24-2021 10:44-0400 Diastolic blood pressure 74 mm[Hg] Cinthya Castro LPN [facility], [facility].; [place] [employer] [facility], [facility]. Comment on above: Patient Position: Sitting; Cuff Location : Left Arm; Cuff Size: Standard 03-24-2021 10:44-0400 Heart rate 75 /min Cinthya Castro LPN [facility], [facility].; [place] [employer] [facility], [employer]. Comment on above: Pattern: Regular 03-24-2021 10:44-0400 Systolic blood pressure 113 mm[Hg] Cinthya Castro LPN [facility], [facility].; [employer], [facility]. Comment on above: Patient Position: Sitting; Cuff Location : Left Arm; Cuff Size: Standard 01-19-2021 14:31-0400 Body height 180.34 cm Naomi Bobby LPN [facility], [facility] [facility].; [facility], [facility]. 01-19-2021 14:31-0400 Body mass index (BMI) [Ratio] 57.88 kg/m2 Naomi Bobby LPN [facility], [facility]. 01-19-2021 14:31-0400 Body surface area Derived from formula 2.88 m2 Naomi Bobby LPN [facility], [facility].; [facility], [facility]. 01-19-2021 14:31-0400 Body weight 188.24 kg [facility].; [facility], [facility]. 01-19-2021 14:31-0400 Diastolic blood pressure 85 mm[Hg] [facility].; [place] [employer] [facility], [employer]. Comment on above: Patient Position: Sitting; Cuff Location : Left Arm; Cuff Size: Standard 01-19-2021 14:31-0400 Heart rate 78 /min Naomijovita Bobby [facility], [facility].; [place] [employer] [facility], [employer]. Comment on above: Pattern: Regular 01-19-2021 14:31-0400 Systolic blood pressure 132 mm[Hg] Naomi Bobby LPN [facility] [employer], [employer]. Comment on above: Patient Position: Sitting; Cuff Location : Left Arm; Cuff Size: Standard 09-22-2020 08:55-0400 Body height 180.34 cm Cinthya Castro LPN [facility], [facility].; [place] [employer] [facility], [facility]. 09-22-2020 08:55-0400 Body mass index (BMI) [Ratio] 56.21 kg/m2 Cinthya Castro LPN [facility], [facility].; [place] [employer] [facility], [facility]. 09-22-2020 08:55-0400 Body surface area Derived from formula 2.84 m2 Cinthya Castro LPN [facility], [facility].; [place] [employer] [facility], [facility]. 09-22-2020 08:55-0400 Body weight 182.8 kg Cinthya Castro [facility]PN [facility] [employer] [facility].; [employer]. 09-22-2020 08:55-0400 Diastolic blood pressure 84 mm[Hg] Cinthya [facility]PN [facility].; [employer]. Comment on above: Patient Position: Sitting; Cuff Location : Left Arm; Cuff Size: Standard 09-22-2020 08:55-0400 Heart rate 74 /min Cinth[facility] Castro [facility]PN [facility].; [employer]. Comment on above: Pattern: Regular 09-22-2020 08:55-0400 Systolic blood pressure 130 mm[Hg] Cinthya Castro LPN [place] [employer] [facility].; [employer], [employer]. Comment on above: Patient Position: Sitting; Cuff Location : Left Arm; Cuff Size: Standard 04-09-2020 09:03-0400 Body height 180.34 cm Angeline Robertson RN [facility], [facility].; [employer], [employer]. 04-09-2020 09:03-0400 Body mass index (BMI) [Ratio] 56.49 kg/m2 Angeline Robertson RN [place] [employer] [facility].; [employer], [employer]. 04-09-2020 09:03-0400 Body surface area Derived from formula 2.85 m2 Angeline Robertson RN [place] [employer] [facility].; [employer], [employer] 04-09-2020 09:03-0400 Body weight 183.71 kg Angeline Robertson [facility].; [employer], [employer] 04-09-2020 09:03-0400 Diastolic blood pressure 74 mm[Hg] Angeline Robertson RN Anne[employer] [facility].; interspire[employer]. Comment on above: Patient Position: Sitting; Cuff Location : Left Arm; Cuff Size: Large 04-09-2020 09:03-0400 Heart rate 75 /min Angeline Robertson RN [place] [employer] [facility].; [employer], [employer]. Comment on above: Pattern: Regular 04-09-2020 09:03-0400 Systolic blood pressure 117 mm[Hg] Angeline Robertson RN [place] [employer].; [employer], [employer]. Comment on above: Patient Position: Sitting; Cuff Location : Left Arm; Cuff Size: Large 02-13-2020 08:46-0400 Body height 180.34 cm Cinthya Castro LPN [facility] [place] [employer] [facility], Inc. 02-13-2020 08:46-0400 Body mass index (BMI) [Ratio] 55.51 kg/m2 Cinthya Castro LPN [facility] [place] [employer] [facility], [facility]. 02-13-2020 08:46-0400 Body surface area Derived from formula 2.83 m2 Cinthya Castro LPN [facility] [place] [employer] [facility], [facility]. 02-13-2020 08:46-0400 Body weight 180.53 kg Cinthya Castro LPN [facility], [facility].; [employer], [facility]. 02-13-2020 08:46-0400 Diastolic blood pressure 83 mm[Hg] Cinthya Castro LPN [facility] [employer], [employer]. Comment on above: Patient Position: Sitting; Cuff Location : Left Arm; Cuff Size: Standard 02-13-2020 08:46-0400 Heart rate 73 /min Cinthya Castro LPN [facility], [facility].; [employer], [employer]. Comment on above: Pattern: Regular 02-13-2020 08:46-0400 Systolic blood pressure 137 mm[Hg] Cinthya Castro LPN [facility] [employer], [employer]. Comment on above: Patient Position: Sitting; Cuff Location : Left Arm; Cuff Size: Standard 01-20-2020 08:19-0400 Body height 180.34 cm Elvira Pinzon LPN [facility], [facility].; [employer], [employer]. 01-20-2020 08:19-0400 Body mass index (BMI) [Ratio] 53.97 kg/m2 Elvira Pinzon [employer] [place] [employer] [facility], [facility].; [employer] 01-20-2020 08:19-0400 Body surface area Derived from formula 2.79 m2 Elvira Pinzon [employer] [place] [employer] [facility], [facility].; [employer], [employer]. 01-20-2020 08:19-0400 Body weight 175.54 kg Elvira Pinzon LEDA [facility], [facility].; [facility], [facility]. 01-20-2020 08:19-0400 Diastolic blood pressure 81 mm[Hg] Elvira Pinzon LEDA [facility], [facility].; [facility] Comment on above: Patient Position: Sitting; Cuff Location : Left Arm; Cuff Size: Large 01-20-2020 08:19-0400 Heart rate 76 /min Elvira Pinzon LEDA [facility], [facility].; [facility] [employer] Comment on above: Pattern: Regular 01-20-2020 08:19-0400 Systolic blood pressure 123 mm[Hg] Elvira Pinzon [facility], [facility].; [facility] Comment on above: Patient Position: Sitting; Cuff Location : Left Arm; Cuff Size: Large 12-17-2019 08:57-0400 Body height 180.34 cm Cinthya Castro LPN [facility], [facility].; [facility], [facility]. 12-17-2019 08:57-0400 Body mass index (BMI) [Ratio] 53 kg/m2 Cinthya Castro LPN [facility], [facility].; [facility] 12-17-2019 08:57-0400 Body surface area Derived from formula 2.77 m2 Cinthya Castro LPN [facility], [facility].; [facility] 12-17-2019 08:57-0400 Body temperature 97.1 [degF] Cinthya Castro LPN [facility], [facility].; Anne [facility] Comment on above: Method: Tympanic 12-17-2019 08:57-0400 Body weight 172.37 kg Cinthya Castro LPN [facility], [facility].; [facility], [facility]. 12-17-2019 08:57-0400 Diastolic blood pressure 85 mm[Hg] Cinthya Castro LPN [facility], [facility].; [employer], [employer]. Comment on above: Patient Position: Sitting; Cuff Location : Left Arm; Cuff Size: Standard 12-17-2019 08:57-0400 Heart rate 62 /min Cinthya Castro LPN [facility], [facility].; [facility]ola[facility] Comment on above: Pattern: Regular 12-17-2019 08:57-0400 Systolic blood pressure 136 mm[Hg] Cinthya Castro LPN [facility].; [place] [employer]. Comment on above: Patient Position: Sitting; Cuff Location : Left Arm; Cuff Size: Standard 10-18-2019 08:28-0400 Body height 180.34 cm Wendy Sagar Gutierrez [employer] [facility], [facility].; [place] [employer] [facility] [employer] [facility]. 10-18-2019 08:28-0400 Body mass index (BMI) [Ratio] 52.58 kg/m2 Wendy Keith Brenda [facility], [facility].; [place] [employer] [facility] [employer] [facility]. 10-18-2019 08:28-0400 Body surface area Derived from formula 2.76 m2 Wendy Sagar Gutierrez [employer] [facility].; [facility] [employer] [facility] [employer] [facility]. 10-18-2019 08:28-0400 Body weight 171.01 kg Wendy Sagar Gutierrez [facility] Apps[employer] [facility] HospitalC[facility].; [employer] [facility]. 10-18-2019 08:28-0400 Diastolic blood pressure 81 mm[Hg] Wendy Sagar Gutierrez [facility] Apps[employer] [facility] HospitalC[facility].; [employer]. Comment on above: Patient Position: Sitting; Cuff Location : Left Arm; Cuff Size: Standard 10-18-2019 08:28-0400 Heart rate 73 /min Wendy Sagar Gutierrez [employer] [facility], [facility].; [employer]. Comment on above: Pattern: Regular 10-18-2019 08:28-0400 Systolic blood pressure 133 mm[Hg] Wendy Keith Brenda [facility].; [employer]. Comment on above: Patient Position: Sitting; Cuff Location : Left Arm; Cuff Size: Standard 08-01-2019 14:42-0500 Body height 180.34 cm Cinthya Castro LPN [facility], [facility].; [employer]. 08-01-2019 14:42-0500 Body mass index (BMI) [Ratio] 53.28 kg/m2 Cinthya Castro LPN [place] [employer] [facility].; [employer]. 08-01-2019 14:42-0500 Body surface area Derived from formula 2.78 m2 Cinthya Castro LPN [facility], [facility].; [facility], [facility]. 08-01-2019 14:42-0500 Body weight 173.28 kg Cinthya Castro LPN [facility], [facility].; [place] [employer] [facility], Inc. 08-01-2019 14:42-0500 Diastolic blood pressure 81 mm[Hg] Cinthya Castro LPN [facility], [facility].; [employer], [employer]. Comment on above: Patient Position: Sitting; Cuff Location : Left Arm; Cuff Size: Standard 08-01-2019 14:42-0500 Heart rate 87 /min Cinthya Castro LPN [facility], [facility].; [employer], [employer]. Comment on above: Pattern: Regular 08-01-2019 14:42-0500 Systolic blood pressure 130 mm[Hg] Cinthya Castro LPN [facility], [facility].; [employer] Comment on above: Patient Position: Sitting; Cuff Location : Left Arm; Cuff Size: Standard 07-19-2019 10:47-0500 Body height 180.34 cm Wendy Gutierrez LPN [facility].; [place] [employer] [facility], Inc. 07-19-2019 10:47-0500 Body mass index (BMI) [Ratio] 54.11 kg/m2 Wendy Gutierrez [employer] [facility].; [place] [employer] [facility], Inc. 07-19-2019 10:47-0500 Body surface area Derived from formula 2.8 m2 Wendy Gutierrez LPN [facility].; [place] [employer] [facility], [facility]. 07-19-2019 10:47-0500 Body weight 176 kg Wendy Gutierrez [employer] [facility], [facility].; [employer], [employer]. 07-19-2019 10:47-0500 Diastolic blood pressure 86 mm[Hg] Wendy Gutierrez LPN [facility], [facility].; [employer], [employer] Comment on above: Patient Position: Sitting; Cuff Location : Left Arm; Cuff Size: Standard 07-19-2019 10:47-0500 Heart rate 81 /min Wendy Gutierrez [employer] [facility] [employer]. Comment on above: Pattern: Regular 07-19-2019 10:47-0500 Systolic blood pressure 135 mm[Hg] Wendy Gutierrez LPN [facility], [facility].; [employer]. Comment on above: Patient Position: Sitting; Cuff Location : Left Arm; Cuff Size: Standard 06-25-2019 13:33-0500 Body height 180.34 cm Cinthya Castro LPN [place] [employer] [facility], [facility].; [employer]. 06-25-2019 13:33-0500 Body mass index (BMI) [Ratio] 54.81 kg/m2 Cinthya Castro LPN [place] [employer] [facility], [facility].; [employer]. 06-25-2019 13:33-0500 Body surface area Derived from formula 2.81 m2 Cinthya Castro LPN [facility], [facility].; [employer]. 06-25-2019 13:33-0500 Body weight 178.26 kg Cinthya Castro LPN [place] [employer] [facility], [facility].; [employer]. 06-25-2019 13:33-0500 Diastolic blood pressure 85 mm[Hg] Cinthya Castro LPN [place] [employer] [facility] Hospital[facility] [employer] [facility].; [employer]. Comment on above: Patient Position: Sitting; Cuff Location : Left Arm; Cuff Size: Standard 06-25-2019 13:33-0500 Heart rate 80 /min Cinthya Castro LPN [place] [employer] [facility], [facility].; [employer]. Comment on above: Pattern: Regular 06-25-2019 13:33-0500 Systolic blood pressure 131 mm[Hg] Cinthya Castro LPN [place] [employer] [facility] HospitalToppermost, Corp..; [employer]. Comment on above: Patient Position: Sitting; Cuff Location : Left Arm; Cuff Size: Standard 04-11-2019 14:02-0400 Body height 180.34 cm Angeline Robertson RN [place] [employer] [facility] HospitalToppermost, Corp..; [employer]. 04-11-2019 14:02-0400 Body mass index (BMI) [Ratio] 57.74 kg/m2 Angeline Robertson RN [place] [employer] [facility] HospitalTopp[facility], Corp..; [employer]. 04-11-2019 14:02-0400 Body surface area Derived from formula 2.87 m2 Angeline Robertson RN [employer], [employer].; [employer] 04-11-2019 14:020400 Body weight 187.79 kg Angeline Robertson RN [employer], [employer].; [employer] 04-11-2019 14:02-0400 Diastolic blood pressure 66 mm[Hg] Angeline Robertson RN [employer], [employer].; [employer] Comment on above: Patient Position: Sitting; Cuff Location : Right Arm; Cuff Size: Large 04-11-2019 14:02-0400 Heart rate 84 /min Angeline Robertson RN [employer], [employer].; [employer] Comment on above: Pattern: Regular 04-11-2019 14:02-0400 Systolic blood pressure 109 mm[Hg] Angeline Robertson RN [employer], [employer].; [employer] Comment on above: Patient Position: Sitting; Cuff Location : Right Arm; Cuff Size: Large 02-05-2019 10:55-0400 Body height 180.34 cm Cinthya Castro LPN [employer], [employer].; [employer] 02-05-2019 10:55-0400 Body mass index (BMI) [Ratio] 58.16 kg/m2 Cinthya Castro LPN [employer], [employer].; [employer] 02-05-2019 10:55-0400 Body surface area Derived from formula 2.88 m2 Cinthya Castro LPN [employer], [employer].; [employer] 02-05-2019 10:55-0400 Body weight 189.15 kg Cinthya Castro LPN [employer], [employer].; [employer]. 02-05-2019 10:55-0400 Diastolic blood pressure 84 mm[Hg] Cinthya Castro LPN [employer], [employer].; [employer], [employer]. Comment on above: Patient Position: Sitting; Cuff Location : Left Arm; Cuff Size: Standard 02-05-2019 10:55-0400 Heart rate 80 /min Cinthya Castro LPN [employer], [employer].; [employer]. Comment on above: Pattern: Regular 02-05-2019 10:55-0400 Systolic blood pressure 133 mm[Hg] Cinthya Castro LPN [employer].; [employer]. Comment on above: Patient Position: Sitting; Cuff Location : Left Arm; Cuff Size: Standard 12-18-2018 13:00-0400 Body height 180.34 cm [employer] (scribe) [employer].; [employer]. 12-18-2018 13:00-0400 Body mass index (BMI) [Ratio] 58.02 kg/m2 [employer] (scribe) [employer].; [employer]. 12-18-2018 13:00-0400 Body surface area Derived from formula 2.88 m2 [employer] (scribe) [employer], [employer]. 12-18-2018 13:00-0400 Body weight 188.7 kg [employer] (scribe) [employer].; [employer]. 12-18-2018 13:00-0400 Diastolic blood pressure 78 mm[Hg] [employer] (scribe) [employer]Submit.; [employer]Submit. Comment on above: Patient Position: Sitting; Cuff Location : Left Arm; Cuff Size: Standard 12-18-2018 13:00-0400 Heart rate 76 /min [employer]anta [employer] (scribe) [employer].; [employer]. Comment on above: Pattern: Regular 12-18-2018 13:00-0400 Systolic blood pressure 126 mm[Hg] [employer] (scribe) [employer].; [employer]. Comment on above: Patient Position: Sitting; Cuff Location : Left Arm; Cuff Size: Standard 11-08-2018 13:04-0400 Body height 180.34 cm Samantha Contreras LPN [employer].; [employer] 11-08-2018 13:04-0400 Body mass index (BMI) [Ratio] 57.18 kg/m2 Samantha Contreras LPN [employer].; [employer]. 11-08-2018 13:040400 Body surface area Derived from formula 2.86 m2 Samantha Contreras LPN [employer] 11-08-2018 13:04040 Body weight 185.98 kg Samantha Contreras LPN [employer] 11-08-2018 13:040400 Diastolic blood pressure 91 mm[Hg] Samantha Contreras LPN [employer], [employer].; [employer] Comment on above: Patient Position: Sitting; Cuff Location : Left Arm; Cuff Size: Standard 11-08-2018 13:040400 Heart rate 69 /min Samantha Contreras LPN [employer] Comment on above: Pattern: Regular 11-08-2018 13:040400 Systolic blood pressure 134 mm[Hg] Samantha Contreras LPN [employer], [employer].; [employer]. Comment on above: Patient Position: Sitting; Cuff Location : Left Arm; Cuff Size: Standard 09-19-2018 11:110400 Body height 180.34 cm Wendy Gutierrez LPN [employer], [employer].; [employer] 09-19-2018 11:11-0400 Body mass index (BMI) [Ratio] 59.27 kg/m2 Wendy Gutierrez LPN [employer].; [employer] 09-19-2018 11:110400 Body surface area Derived from formula 2.91 m2 Wendy Gutierrez LPN [employer].; [employer] 09-19-2018 11:11-0400 Body weight 192.78 kg Wendy Gutierrez [employer] PAR[employer] PROFESSIONAL [employer], [employer].; [employer]. 09-19-2018 11:11-0400 Diastolic blood pressure 88 mm[Hg] Wendy Gutierrez LPN [employer], [employer].; [employer], [employer]. Comment on above: Patient Position: Sitting; Cuff Location : Left Arm; Cuff Size: Standard 09-19-2018 11:11-0400 Heart rate 81 /min Wendy Gutierrez LPN [employer].; [employer]. Comment on above: Pattern: Regular 09-19-2018 11:11-0400 Systolic blood pressure 153 mm[Hg] Wendy Gutierrez LPN [employer].; [employer]. Comment on above: Patient Position: Sitting; Cuff Location : Left Arm; Cuff Size: Standard 08-09-2018 12:57-0500 Body height 180.34 cm Angeline Robertson RN [employer]Submit.; [employer]. 08-09-2018 12:57-0500 Body mass index (BMI) [Ratio] 56.76 kg/m2 Angeline Robertson RN [employer].; [employer]. 08-09-2018 12:57-0500 Body surface area Derived from formula 2.85 m2 Angeline Robertson RN [employer].; [employer]. 08-09-2018 12:57-0500 Body weight 184.62 kg Angeline Robertson RN [employer].; [employer]. 08-09-2018 12:57-0500 Diastolic blood pressure 77 mm[Hg] Angeline Robertson RN [employer].; [employer]. Comment on above: Patient Position: Sitting; Cuff Location : Right Arm; Cuff Size: Large 08-09-2018 12:57-0500 Heart rate 105 /min Angeline Robertson RN [employer].; [employer]. Comment on above: Pattern: Regular 08-09-2018 12:57-0500 Systolic blood pressure 111 mm[Hg] Angeline Robertson RN [employer].; [employer]. Comment on above: Patient Position: Sitting; Cuff Location : Right Arm; Cuff Size: Large 03-29-2018 08:52-0400 Body height 180.34 cm Angeline Robertson RN [employer].; [employer]. 03-29-2018 08:52-0400 Body mass index (BMI) [Ratio] 59.41 kg/m2 Angeline Robertson RN [place] [employer] [facility], [employer].; [employer]. 03-29-2018 08:52-0400 Body surface area Derived from formula 2.91 m2 Angeline Robertson RN [place] [employer] [facility], [employer].; [employer]. 03-29-2018 08:52-0400 Body temperature 99.8 [degF] Angeline Robertson RN [place] [employer] [facility] HospitalToppermost, Corp..; inter[employer]Submit. Comment on above: Method: Tympanic 03-29-2018 08:52-0400 Body weight 193.23 kg Angeline Robertson RN [place] [employer] [facility], [employer].; [employer]. 03-29-2018 08:52-0400 Diastolic blood pressure 81 mm[Hg] Angeline Robertson RN [place] [employer].; [employer]. Comment on above: Patient Position: Sitting; Cuff Location : Left Arm; Cuff Size: Large 03-29-2018 08:52-0400 Heart rate 99 /min Angeline Robertson RN [place] [employer] [facility], [employer].; [employer]. Comment on above: Pattern: Regular 03-29-2018 08:52-0400 Systolic blood pressure 129 mm[Hg] Angeline Robertson RN [employer] [facility], [employer].; [employer]. Comment on above: Patient Position: Sitting; Cuff Location : Left Arm; Cuff Size: Large 03-19-2018 11:37-0400 Body height 180.34 cm Elvira Pinzon LPN [place] [employer] [facility], [employer].; [employer]. 03-19-2018 11:37-0400 Body mass index (BMI) [Ratio] 58.16 kg/m2 Elvira Pinzon LPN [employer] [facility], [employer].; [employer]. 03-19-2018 11:37-0400 Body surface area Derived from formula 2.88 m2 Elvira Pinzon LPN [facility] [employer] [facility], [employer].; [employer]. 03-19-2018 11:37-0400 Body temperature 98.5 [degF] Elvira Pinzon LPN [employer] [facility], [employer]Fre[employer].; [facility] Comment on above: Method: Tympanic 03-19-2018 11:37-0400 Body weight 189.15 kg Elvira Pinzon [facility], Inc.; [employer] 03-19-2018 11:37-0400 Diastolic blood pressure 90 mm[Hg] Elvira Pinzon [facility] CampusActive[facility]Semi, Inc.; [employer], [employer] Comment on above: Patient Position: Sitting; Cuff Location : Left Arm; Cuff Size: Large 03-19-2018 11:37-0400 Heart rate 97 /min Evlira Pinozn [facility] CampusActive[facility]i, Inc.; [employer], [employer] Comment on above: Pattern: Regular 03-19-2018 11:37-0400 Systolic blood pressure 139 mm[Hg] Elvira Pinzon [facility] CampusActive[facility]i, Inc.; [employer], [employer]. Comment on above: Patient Position: Sitting; Cuff Location : Left Arm; Cuff Size: Large 01-09-2018 11:18-0400 Body height 180.34 cm [facility] [employer] (scribe) [employer] [facility], Inc.; [employer] 01-09-2018 11:18-0400 Body mass index (BMI) [Ratio] 55.23 kg/m2 [employer] ([employer]) [facility] [facility] [facility], [facility] [employer], [employer]. 01-09-2018 11:18-0400 Body surface area Derived from formula 2.82 m2 [facility] CenterTrident Pharmaceuticals Inc.goi (scribe) [employer] [facility], Inc.; [employer], [employer] 01-09-2018 11:18-0400 Body weight 179.63 kg [employer] (scribe) [employer], Inc.; [employer], [employer] 01-09-2018 11:18-0400 Diastolic blood pressure 70 mm[Hg] [employer] (scribe) [employer], Inc[employer], Inc. Comment on above: Patient Position: Sitting; Cuff Location : Left Arm; Cuff Size: Standard 01-09-2018 11:18-0400 Heart rate 84 /min Hem[employer] (scribe) [employer], Inc[employer], [employer]. Comment on above: Pattern: Regular 01-09-2018 11:18-0400 Systolic blood pressure 106 mm[Hg] Sumaya Garcia (scribe) [facility], Inc.; [employer], [employer]edom. Comment on above: Patient Position: Sitting; Cuff Location : Left Arm; Cuff Size: Standard 11-09-2017 13:36-0400 Body height 180.34 cm Anabel K Mutersbaugh COMPUTER LAB PARA PROFESSIONAL [place] [employer] [facility], Inc.; [employer]. 11-09-2017 13:36-0400 Body mass index (BMI) [Ratio] 53.56 kg/m2 Anabel K Mutersbaugh COMPUTER LAB PARA PROFESSIONAL [place] [employer], [employer]. 11-09-2017 13:36-0400 Body surface area Derived from formula 2.78 m2 Anabel K Mutersbaugh COMPUT[facility] PARA PROFESSIONAL [place] [employer], [employer], [employer]. 11-09-2017 13:36-0400 Body weight 174.18 kg Anabel K Mutersbaugh COMPUTER [facility] PARA PROFESSIONAL [employer], Inc.; [employer], [employer]Freedom. 11-09-2017 13:36-0400 Diastolic blood pressure 76 mm[Hg] Anabel K Mutersbaugh COMPUTER [facility] PARA PROFESSIONAL [employer], Inc.; [employer]. Comment on above: Patient Position: Sitting; Cuff Location : Left Arm; Cuff Size: Standard 11-09-2017 13:36-0400 Heart rate 81 /min Anabel K Mutersbaugh COMPUTER [facility] PARA PROFESSIONAL [employer], [employer].; [employer], [employer]. Comment on above: Pattern: Regular 11-09-2017 13:36-0400 Systolic blood pressure 116 mm[Hg] Anabel K Mutersbaugh COMPUTER LAB PARA PROFESSIONAL [employer], Inc.; [employer]. Comment on above: Patient Position: Sitting; Cuff Location : Left Arm; Cuff Size: Standard 09-25-2017 14:12-0400 Body height 180.34 cm Vera Jeromy COMPUTER LAB PARA PROFESSIONAL [employer], Inc.; [employer]. 09-25-2017 14:12-0400 Diastolic blood pressure 89 mm[Hg] Elvira Matt Jeromy COMPUTER LAB PARA PROFESSIONAL [employer], [employer].; inter[employer]Submit. Comment on above: Patient Position: Sitting; Cuff Location : Left Arm; Cuff Size: Large 09-25-2017 14:12-0400 Heart rate 89 /min Elvira Pinzon COMPUTER LAB PARA PROFESSIONAL [employer], [employer].; [employer]. Comment on above: Pattern: Regular 09-25-2017 14:12-0400 Systolic blood pressure 157 mm[Hg] Elvira Pinzon COMPUTER LAB PARA PROFESSIONAL [employer].; inter[employer]Submit. Comment on above: Patient Position: Sitting; Cuff Location : Left Arm; Cuff Size: Large 08-18-2017 10:17-0500 Body height 180.34 cm Angeline Robertson RN [employer].; [employer]. 08-18-2017 10:17-0500 Body mass index (BMI) [Ratio] 55.37 kg/m2 Angeline Robertson RN [employer].; [employer]. 08-18-2017 10:17-0500 Body surface area Derived from formula 2.82 m2 Angeline Robertson RN [employer].; [employer]. 08-18-2017 10:17-0500 Body temperature 99.1 [degF] Angeline Robertson RN [employer].; [employer]. Comment on above: Method: Tympanic 08-18-2017 10:17-0500 Body weight 180.08 kg Angeline Robertson RN [employer].; [employer] 08-18-2017 10:17-0500 Diastolic blood pressure 82 mm[Hg] Angeline Robertson RN [employer].; [employer]. Comment on above: Patient Position: Sitting; Cuff Location : Left Arm; Cuff Size: Large 08-18-2017 10:17-0500 Heart rate 88 /min Angeline Robertson RN [employer].; [employer]. Comment on above: Pattern: Regular 08-18-2017 10:17-0500 Systolic blood pressure 115 mm[Hg] Angeline Robertson RN [employer].; [facility] Comment on above: Patient Position: Sitting; Cuff Location : Left Arm; Cuff Size: Large 12-21-2016 12:41-0400 BMI (Body Mass Index) 53.69 kg/m2 Yesenia Valiente COMPUTER LAB PARA PROFESSIONAL [facility] [employer] Phone: 12-21-2016 12:41-0400 Body Temperature 97.5 [degF] Yesenia Reynoldho [facility] [employer] Phone: 12-21-2016 12:41-0400 BP Diastolic 80 mm[Hg] Yesenia Reynoldho [facility] [employer] Phone: 12-21-2016 12:41-0400 BP Systolic 114 mm[Hg] Yesenia Reynoldho [facility] [employer] Phone: 12-21-2016 12:41-0400 Height 180.34 cm Yesenia Flahertyho [facility] [employer] Phone: 12-21-2016 12:41-0400 Pulse (Heart Rate) 80 /min Yesenia Franklailaho [facility] [employer] Phone: 12-21-2016 12:41-0400 Respiratory Rate 18 /min Yesenia Franklailaho [facility] [employer] Phone: 12-21-2016 12:41-0400 Weight 174.64 kg [facility] [employer] Phone: 11-25-2016 13:26-0400 Body height 180.34 cm Angeline Robertson RN [facility], Inc.; [facility] 11-25-2016 13:26-0400 Body mass index (BMI) [Ratio] 53.7 kg/m2 Angeline Robertson RN [facility], Inc.; [facility], Inc[facility] 11-25-2016 13:26-0400 Body surface area Derived from formula 2.79 m2 Angeline Robertson RN [facility], Inc.; [employer]. 11-25-2016 13:26-0400 Body temperature 99 [degF] Angeline Robertson RN [place] [employer] [facility], [employer].; [employer]. Comment on above: Method: Tympanic 11-25-2016 13:260400 Body weight 174.64 kg Angeline Robertson RN [place] [employer] [facility], Inc.; [employer] 11-25-2016 13:26-0400 Diastolic blood pressure 83 mm[Hg] Angeline Robertson RN [place] [employer] [facility], [employer].; [employer], [employer]. Comment on above: Patient Position: Sitting; Cuff Location : Left Arm; Cuff Size: Large 11-25-2016 13:260400 Heart rate 88 /min Angeline Robertson RN [place] [employer] [facility], [employer].; [employer]. Comment on above: Pattern: Regular 11-25-2016 13:260400 Systolic blood pressure 127 mm[Hg] Angeline Robertson RN [place] [employer] [facility], [employer].; [employer]. Comment on above: Patient Position: Sitting; Cuff Location : Left Arm; Cuff Size: Large 08-29-2016 12:50-0400 Body height 180.34 cm Elvira Pinzon LPN [employer] [facility], Inc.; [employer]. 08-29-2016 12:50-0400 Body mass index (BMI) [Ratio] 52.58 kg/m2 Elvira Pinzon LPN [employer] [facility], Inc.; [employer]. 08-29-2016 12:50-0400 Body surface area Derived from formula 2.76 m2 Elvira Pinzon LPN [employer] [facility], Inc.; [employer]. 08-29-2016 12:50-0400 Body weight 171.01 kg Elvira Pinzon LPN [employer], [employer].; [employer]. 08-29-2016 12:50-0400 Diastolic blood pressure 84 mm[Hg] Elvira Pinzon LPN [employer], Inc.; [employer]. Comment on above: Patient Position: Sitting; Cuff Location : Left Arm; Cuff Size: Large 08-29-2016 12:50-0400 Heart rate 96 /min Elvira Pinzon LEDA [employer] [facility], Inc.; [employer], [employer]. Comment on above: Pattern: Regular 08-29-2016 12:50-0400 Systolic blood pressure 133 mm[Hg] Elvira Pinzon LEDA [employer], Inc.; [employer], Inc. Comment on above: Patient Position: Sitting; Cuff Location : Left Arm; Cuff Size: Large 08-08-2016 10:37-0500 Body height 180.34 cm Elba Donaldson LPN [employer] [facility], Inc.; [employer], Inc. 08-08-2016 10:37-0500 Body mass index (BMI) [Ratio] 52.58 kg/m2 Elba Donaldson LPN [employer], Inc.; [employer], Inc. 08-08-2016 10:37-0500 Body surface area Derived from formula 2.76 m2 Elba Donaldson LPN [employer], Inc.; [employer], [employer]. 08-08-2016 10:37-0500 Body weight 171.01 kg Elba Donaldson LPN [employer], Inc.; [employer], [employer]. 08-08-2016 10:37-0500 Diastolic blood pressure 84 mm[Hg] Elba Donaldson LPN [employer], Inc.; [employer], [employer]. Comment on above: Patient Position: Sitting; Cuff Location : Left Arm; Cuff Size: Large 08-08-2016 10:37-0500 Heart rate 70 /min Elba Donaldson LPN [employer], Inc.; [employer]. Comment on above: Pattern: Regular 08-08-2016 10:37-0500 Systolic blood pressure 119 mm[Hg] Elba Donaldson LPN [employer], Inc.; [employer], [employer]. Comment on above: Patient Position: Sitting; Cuff Location : Left Arm; Cuff Size: Large 07-08-2016 10:12-0500 Body height 180.34 cm Elba Donaldson LPN [employer], Inc.; [employer], Inc[employer] 07-08-2016 10:12-0500 Body mass index (BMI) [Ratio] 53.14 kg/m2 Elba Donaldson LPN [facility], Inc.; Anne [employer] [facility], Inc. 07-08-2016 10:12-0500 Body surface area Derived from formula 2.77 m2 Ebla Donaldson LPN [facility], Inc.; [employer], Inc. 07-08-2016 10:12-0500 Body temperature 97.3 [degF] Elba Donaldson COMPUTER LAB PARA PROFESSIONAL [facility], Inc.; [employer], [employer]. Comment on above: Method: Tympanic 07-08-2016 10:12-0500 Body weight 172.82 kg Elba Donaldson COMPUTER LAB PARA PROFESSIONAL [facility], Inc.; [employer], [employer]. 07-08-2016 10:12-0500 Diastolic blood pressure 84 mm[Hg] Elba Donaldson LPN [facility], Inc.; [employer], [employer]. Comment on above: Patient Position: Sitting; Cuff Location : Left Arm; Cuff Size: Large 07-08-2016 10:12-0500 Heart rate 95 /min Elba Donaldson COMPUTER LAB PARA PROFESSIONAL [facility], Inc.; [employer], [employer]. Comment on above: Pattern: Regular 07-08-2016 10:12-0500 Systolic blood pressure 128 mm[Hg] Elba Donaldson COMPUTER LAB PARA PROFESSIONAL [facility], Inc.; [employer], [employer]. Comment on above: Patient Position: Sitting; Cuff Location : Left Arm; Cuff Size: Large 06-23-2016 13:10-0500 Body Temperature 98.42 [degF] Yesenia Valiente COMPUTER LAB PARA PROFESSIONAL [facility] [employer] Work Phone: 06-23-2016 13:10-0500 BSA (Body Surface Area) 2.8 m2 [facility] [employer] Work Phone: 06-23-2016 13:10-0500 Height 180.34 cm Yesenia Fl[facility]ertyUniversity [facility] System[facility] [employer] Work Phone: 03-07-2016 10:00-0400 Body height 180.34 cm Elba Donaldson COMPUTER LAB PARA PROFESSIONAL [facility], Inc.; [place] [employer] [facility], [employer]. 03-07-2016 10:00-0400 Body mass index (BMI) [Ratio] 52.44 kg/m2 Elba Donaldson [facility], Inc.; Anne [employer] [facility], Inc. 03-07-2016 10:00-0400 Body surface area Derived from formula 2.76 m2 Elba Donaldson [facility], Inc.; Anne [employer] [facility], [employer]. 03-07-2016 10:00-0400 Body weight 170.55 kg Elba Donaldson [facility], [facility] [employer]. 03-07-2016 10:00-0400 Diastolic blood pressure 74 mm[Hg] Elba Donaldson [facility], [facility].; [employer]. Comment on above: Patient Position: Sitting; Cuff Location : Left Arm; Cuff Size: Large 03-07-2016 10:00-0400 Heart rate 77 /min Elba Donaldson [facility], Inc.; [employer]. Comment on above: Pattern: Regular 03-07-2016 10:00-0400 Inhaled oxygen concentration 20 % Elba Donaldson [facility], Inc.; [employer], [employer]. Comment on above: Room air 03-07-2016 10:00-0400 Inhaled oxygen concentration 21 % Elba Donladson [facility], Inc.; [employer]. Comment on above: Room air 03-07-2016 10:00-0400 SaO2% (BldA) [Mass fraction] 94 % Elba Donaldson [facility], Inc.; [employer]. 03-07-2016 10:00-0400 Systolic blood pressure 105 mm[Hg] Elba Donaldson [facility], [employer].; [employer]. Comment on above: Patient Position: Sitting; Cuff Location : Left Arm; Cuff Size: Large 02-10-2016 10:45-0400 Body height 180.34 cm Wendy Gutierrez [facility] [employer] [facility], Inc.; Anne [employer]. 02-10-2016 10:45-0400 Body mass index (BMI) [Ratio] 52.02 kg/m2 Wendy Gutierrez [facility], Inc.; [employer], [employer] 02-10-2016 10:45-0400 Body surface area Derived from formula 2.75 m2 [facility], Inc[facility] [employer], Inc. 02-10-2016 10:45-0400 Body weight 169.19 kg Wendy [facility] [employer] [facility], [facility].; [employer], Inc. 02-10-2016 10:45-0400 Diastolic blood pressure 76 mm[Hg] Wendy [facility] [employer] [facility], Inc.; [employer], Inc. Comment on above: Patient Position: Sitting; Cuff Location : Right Arm; Cuff Size: Standard 02-10-2016 10:45-0400 Heart rate 80 /min Wendy Keith [facility] [employer] [facility], Inc.; [employer], [employer]. Comment on above: Pattern: Regular 02-10-2016 10:45-0400 Systolic blood pressure 107 mm[Hg] Wendy Gutierrez [facility] [employer] [facility], Inc.; [employer]. Comment on above: Patient Position: Sitting; Cuff Location : Right Arm; Cuff Size: Standard 11-16-2015 11:52-0400 Body height 180.34 cm Elvira Pinzon [facility], Inc.; [employer], [employer]. 11-16-2015 11:52-0400 Body mass index (BMI) [Ratio] 50.91 kg/m2 Elvira Pinzon [facility] [employer] [facility], Inc.; [employer], Inc. 11-16-2015 11:52-0400 Body surface area Derived from formula 2.72 m2 Elvira Pinzon [facility] [employer] [facility], Inc.; [employer], [employer]. 11-16-2015 11:52-0400 Body temperature 98.1 [degF] Elvira Pinzon [facility] [employer] [facility], Inc.; [employer]. Comment on above: Method: Tympanic 11-16-2015 11:52-0400 Body weight 165.56 kg Elvira Pinzon COMPUTER LAB PARA PROFESSIONAL [facility], Inc.; [employer], [employer]. 11-16-2015 11:52-0400 Diastolic blood pressure 86 mm[Hg] Elvira Pinzon LEDA [place] [employer] [facility], Inc.; [employer], [employer]. Comment on above: Patient Position: Sitting; Cuff Location : Left Arm; Cuff Size: Large 11-16-2015 11:52-0400 Heart rate 88 /min Elvira Pinzon LEDA [facility], Inc.; [employer], Inc. Comment on above: Pattern: Regular 11-16-2015 11:52-0400 Systolic blood pressure 120 mm[Hg] Elvira Pinzon LEDA [place] [employer] [facility], Inc.; [employer], [employer]. Comment on above: Patient Position: Sitting; Cuff Location : Left Arm; Cuff Size: Large 10-30-2015 15:27-0400 Body height 180.34 cm Elba Donaldson LPN [facility], Inc.; [employer], Inc. 10-30-2015 15:27-0400 Body mass index (BMI) [Ratio] 49.23 kg/m2 Elba Donaldson LPN [place] [employer] [facility], Inc.; [employer], Inc. 10-30-2015 15:27-0400 Body surface area Derived from formula 2.69 m2 Elba Donaldson LPN [facility], Inc.; [employer], [employer]. 10-30-2015 15:27-0400 Body weight 160.12 kg Elba Donaldson LPN [place] [employer] [facility], Inc.; [employer], Inc. 10-30-2015 15:27-0400 Diastolic blood pressure 66 mm[Hg] Elba Donaldson LPN [place] [employer] [facility], Inc.; [employer], [employer]. Comment on above: Patient Position: Sitting; Cuff Location : Right Arm; Cuff Size: Large 10-30-2015 15:27-0400 Heart rate 84 /min Elba Donaldson LPN [place] [employer] [facility], Inc.; [employer], Inc. Comment on above: Pattern: Regular 10-30-2015 15:27-0400 Systolic blood pressure 121 mm[Hg] Elba Donaldson LPN [place] [employer] [facility], Inc.; [employer], [employer]. Comment on above: Patient Position: Sitting; Cuff Location : Right Arm; Cuff Size: Large 07-24-2015 09:03-0500 Body height 180.34 cm Elba Dennys Donaldson LPN [employer] [facility], Inc.; [employer] 07-24-2015 09:03-0500 Body mass index (BMI) [Ratio] 50.21 kg/m2 Elba Dennys Donaldson LPN [employer] [facility], Inc.; [employer], [employer]. 07-24-2015 09:03-0500 Body surface area Derived from formula 2.71 m2 Elba Dennys Donaldson LPN [employer], Inc.; [employer], [employer]. 07-24-2015 09:030500 Body weight 163.3 kg Elba Donaldson LPN [employer], [employer].; [employer], [employer]. 07-24-2015 09:03-0500 Diastolic blood pressure 77 mm[Hg] Elba Dennys Donaldson LPN [employer], Inc.; [employer], [employer]. Comment on above: Patient Position: Sitting; Cuff Location : Right Arm; Cuff Size: Large 07-24-2015 09:03-0500 Heart rate 84 /min Elba Donaldson LPN [employer] [facility], Inc.; [employer], [employer]. Comment on above: Pattern: Regular 07-24-2015 09:03-0500 Systolic blood pressure 109 mm[Hg] Elba Dennys Donaldson LPN [employer], Inc.; [employer], [employer]. Comment on above: Patient Position: Sitting; Cuff Location : Right Arm; Cuff Size: Large 07-09-2015 14:17-0500 Body height 180.34 cm Anabel Jae Serrano LPN [employer], Inc.; [employer], [employer]. 07-09-2015 14:17-0500 Body mass index (BMI) [Ratio] 50.63 kg/m2 Anabel K Mutersbaugh COMPUTER LAB PARA PROFESSIONAL [employer], Inc.; [employer], [employer]. 07-09-2015 14:17-0500 Body surface area Derived from formula 2.72 m2 Anabel K Mutersbaugh COMPUTER LAB PARA PROFESSIONAL [employer], Inc.; [employer]. 07-09-2015 14:17-0500 Body weight 164.66 kg Anabel Jae Josephbaugh COMPUTER LAB PARA PROFESSIONAL [facility], Inc.; [employer]. 07-09-2015 14:17-0500 Diastolic blood pressure 96 mm[Hg] Anabel Jae Mutthiagobaugh COMPUTER LAB PARA PROFESSIONAL [place] [employer] [facility], Inc.; [employer]. Comment on above: Patient Position: Sitting; Cuff Location : Left Arm; Cuff Size: Standard 07-09-2015 14:17-0500 Heart rate 82 /min Anabel Jae Josephbaugh COMPUTER LAB PARA PROFESSIONAL [facility], Inc.; [employer]. Comment on above: Pattern: Regular 07-09-2015 14:17-0500 Systolic blood pressure 121 mm[Hg] Anabel Jae Mutersbaugh COMPUTER LAB PARA PROFESSIONAL [place] [employer] [facility] [employer]; [employer]. Comment on above: Patient Position: Sitting; Cuff Location : Left Arm; Cuff Size: Standard 03-04-2015 09:55-0400 Body height 180.34 cm Wendyrussel Gutierrez [facility] [employer] [facility], [facility].; [employer]. 03-04-2015 09:55-0400 Body mass index (BMI) [Ratio] 47.14 kg/m2 Wendy Sagar Brenda [facility] [employer] [facility], [employer].; [employer], [employer]. 03-04-2015 09:55-0400 Body surface area Derived from formula 2.64 m2 Wendy Sagar Gutierrez [facility] [employer] [facility], [facility].; [employer]. 03-04-2015 09:55-0400 Body weight 153.32 kg Wendy Sagar Gutierrez [facility] [employer] [facility] Hospital[facility].; [employer]. 03-04-2015 09:55-0400 Diastolic blood pressure 82 mm[Hg] Wendy Sagar Gutierrez [facility] [employer] [facility], [employer]; [employer]. Comment on above: Patient Position: Sitting; Cuff Location : Right Arm; Cuff Size: Standard 03-04-2015 09:55-0400 Heart rate 80 /min Wendy Gutierrez [facility] [employer] [facility], [facility]; [employer]. Comment on above: Pattern: Regular 03-04-2015 09:55-0400 Systolic blood pressure 117 mm[Hg] Wendy Gutierrez [facility], Inc.; [employer], [employer]. Comment on above: Patient Position: Sitting; Cuff Location : Right Arm; Cuff Size: Standard 11-14-2014 11:25-0400 Body height 180.34 cm Elbavandana Donaldson COMPUTER LAB PARA PROFESSIONAL [facility], Inc.; [employer] 11-14-2014 11:25-0400 Body mass index (BMI) [Ratio] 48.4 kg/m2 Elba Dennys Donaldson COMPUTER LAB PARA PROFESSIONAL Anne [employer] [facility], Inc.; [employer], [employer]. 11-14-2014 11:25-0400 Body surface area Derived from formula 2.67 m2 Elba Dennys Donaldson COMPUTER LAB PARA PROFESSIONAL Anne [employer] [facility], Inc.; [employer], [employer]. 11-14-2014 11:25-0400 Body weight 157.4 kg Elba Donaldson COMPUTER LAB PARA PROFESSIONAL [employer], [employer].; [employer] 11-14-2014 11:25-0400 Diastolic blood pressure 91 mm[Hg] Elba Dennys Donaldson COMPUTER LAB PARA PROFESSIONAL [employer], Inc.; [employer], [employer]. Comment on above: Patient Position: Sitting; Cuff Location : Right Arm; Cuff Size: Large 11-14-2014 11:25-0400 Heart rate 77 /min Elba Donaldson COMPUTER LAB PARA PROFESSIONAL [employer] [facility], Inc.; [employer], [employer]. Comment on above: Pattern: Regular 11-14-2014 11:25-0400 Systolic blood pressure 134 mm[Hg] Elba Dennys Donaldson COMPUTER LAB PARA PROFESSIONAL [employer] [facility], Inc.; [employer], [employer]. Comment on above: Patient Position: Sitting; Cuff Location : Right Arm; Cuff Size: Large 07-18-2014 11:39-0500 Body height 180.34 cm Elba Dennys Donaldson COMPUTER LAB PARA PROFESSIONAL [employer] [facility], Inc.; [employer], [employer]. 07-18-2014 11:39-0500 Body mass index (BMI) [Ratio] 48.12 kg/m2 Elba Dennys Donaldson COMPUTER LAB PARA PROFESSIONAL [employer], [employer].; [employer], [employer]. 07-18-2014 11:39-0500 Body surface area Derived from formula 2.66 m2 Elba Dennys Donaldson LPN [facility], Inc.; [employer], [employer]. 07-18-2014 11:39-0500 Body weight 156.49 kg Elba Dennys Donaldson LPN [facility], Inc.; [employer], [employer] 07-18-2014 11:39-0500 Diastolic blood pressure 87 mm[Hg] Elba Dennys Donaldson LPN [facility], Inc.; [employer], [employer]. Comment on above: Patient Position: Sitting; Cuff Location : Right Arm; Cuff Size: Large 07-18-2014 11:39-0500 Heart rate 90 /min Elba Dennys Donaldson COMPUTER LAB PARA PROFESSIONAL [facility], Inc.; [employer]. Comment on above: Pattern: Regular 07-18-2014 11:39-0500 Systolic blood pressure 128 mm[Hg] Elba Dennys Donaldson COMPUTER LAB PARA PROFESSIONAL [facility], Inc.; [employer] Comment on above: Patient Position: Sitting; Cuff Location : Right Arm; Cuff Size: Large 06-30-2014 16:00-0500 Body height 180.34 cm Elba Dennys Donaldson LPN [facility], Inc.; [employer] 06-30-2014 16:00-0500 Body mass index (BMI) [Ratio] 45.89 kg/m2 Elba Dennys Donaldson LPN [facility], Inc.; [employer] 06-30-2014 16:00-0500 Body surface area Derived from formula 2.61 m2 Elba Donaldson LPN [facility], Inc.; [employer] 06-30-2014 16:00-0500 Body weight 149.23 kg Elba Dennys Donaldson COMPUTER LAB PARA PROFESSIONAL [place] [employer] [facility], Inc.; [employer], [employer] 06-30-2014 16:00-0500 Diastolic blood pressure 91 mm[Hg] Elba Dennys Donaldson COMPUTER LAB PARA PROFESSIONAL [place] [employer] [facility], Inc.; [employer], [employer]. Comment on above: Patient Position: Sitting; Cuff Location : Right Arm; Cuff Size: Large 06-30-2014 16:00-0500 Heart rate 91 /min Elba Dennys Donaldson LPN [facility], Inc.; Anne [employer] [facility], [facility].. Comment on above: Pattern: Regular 06-30-2014 16:00-0500 Systolic blood pressure 131 mm[Hg] Elba N [facility]endoza [facility] [place] [employer]. Comment on above: Patient Position: Sitting; Cuff Location : Right Arm; Cuff Size: Large 06-18-2013 10:32-0500 Body height 180.34 cm Rama Jbnatanael TOMPKINS [facility] [place] [employer]. 06-18-2013 10:32-0500 Body mass index (BMI) [Ratio] 46.09 kg/m2 Rama Jbnatanael [facility], [facility] [place] [employer], [employer]. 06-18-2013 10:32-0500 Body surface area Derived from formula 2.61 m2 Ramatereza Nix LPN [facility] [place] [employer], [employer]. 06-18-2013 10:32-0500 Body temperature 99.8 [degF] Rama Jbnatanael [facility], [facility].; [employer]. Comment on above: Method: Tympanic 06-18-2013 10:32-0500 Body weight 149.91 kg Rama Jbnatanael TOMPKINS [facility], [facility].; [employer], [employer]. 06-18-2013 10:32-0500 Diastolic blood pressure 77 mm[Hg] [facility] [employer]. Comment on above: Patient Position: Sitting; Cuff Location : Left Arm; Cuff Size: Standard 06-18-2013 10:32-0500 Heart rate 103 /min Rama Nix LPN [place] [employer] [facility], [facility].; [employer]. Comment on above: Pattern: Regular 06-18-2013 10:32-0500 Inhaled oxygen concentration 20 % Rama Nix LPN [facility] [employer]. Comment on above: Room air 06-18-2013 10:32-0500 Inhaled oxygen concentration 21 % Rama Nix LPN [facility] [employer]. Comment on above: Room air 06-18-2013 10:32-0500 SaO2% (BldA) [Mass fraction] 92 % Rama Nix LPN [facility], [facility].; [place] [employer] [facility], [employer]. 06-18-2013 10:32-0500 Systolic blood pressure 105 mm[Hg] [facility] [employer], [employer]. Comment on above: Patient Position: Sitting; Cuff Location : Left Arm; Cuff Size: Standard 05-14-2013 17:21-0500 Body height 180.34 cm Ramatereza Nix LPN [facility], [facility] [place] [employer] [facility], [employer]. 05-14-2013 17:21-0500 Body mass index (BMI) [Ratio] 46.5 kg/m2 Rama Nix [employer] [facility] [place] [employer], [employer]. 05-14-2013 17:21-0500 Body surface area Derived from formula 2.62 m2 Rama natanael [facility], [facility].; [place] [employer], [employer]. 05-14-2013 17:21-0500 Body weight 151.22 kg Rama Wenatanael [facility] [employer] [facility], [facility].; [employer], [employer]. 05-14-2013 17:21-0500 Diastolic blood pressure 90 mm[Hg] Rama Nix [employer] [facility] [employer], [employer]. Comment on above: Patient Position: Sitting; Cuff Location : Left Arm; Cuff Size: Standard 05-14-2013 17:21-0500 Heart rate 105 /min Rama Nix LPN [facility], [facility].; [employer]. Comment on above: Pattern: Regular 05-14-2013 17:21-0500 Systolic blood pressure 124 mm[Hg] Rama Nix LPN [place] [employer] [facility], [facility].; [employer]. Comment on above: Patient Position: Sitting; Cuff Location : Left Arm; Cuff Size: Standard 03-05-2013 16:05-0400 Body height 180.34 cm Elba Donaldson LPN [facility], [facility].; [place] [employer], [facility]. 03-05-2013 16:05-0400 Body mass index (BMI) [Ratio] 46.86 kg/m2 Elba Dennys Donaldson LPN [facility], [facility].; [place] [employer] [facility], [facility]. 03-05-2013 16:05-0400 Body surface area Derived from formula 2.63 m2 Elba Dennys Donaldson [employer] [facility] [place] [employer] [facility], [facility]. 03-05-2013 16:05-0400 Body weight 152.41 kg Elba Dennys Donaldson LPN [facility], [facility].; [employer] [facility], [facility]. 03-05-2013 16:05-0400 Diastolic blood pressure 87 mm[Hg] Elba Dennys Donaldson [employer] [facility], [facility].; [place] [employer] [facility], [facility]. Comment on above: Patient Position: Sitting; Cuff Location : Right Arm; Cuff Size: Large 03-05-2013 16:05-0400 Heart rate 111 /min Elba Donaldson LPN [facility], [facility].; [place] [employer], [employer]. Comment on above: Pattern: Regular 03-05-2013 16:05-0400 Systolic blood pressure 131 mm[Hg] Elba Dennys Donaldson [employer] [facility], [facility].; [employer] [facility], [facility]. Comment on above: Patient Position: Sitting; Cuff Location : Right Arm; Cuff Size: Large 09-04-2012 16:30-0400 Body height 180.34 cm Clare Harris [employer] [facility], [facility].; [place] [employer] [facility], [facility]. 09-04-2012 16:30-0400 Body mass index (BMI) [Ratio] 46.03 kg/m2 Clare Harris [employer] [facility], [facility].; [place] [employer] [facility], [facility]. 09-04-2012 16:30-0400 Body surface area Derived from formula 2.61 m2 Clare Harris [employer] [place] [employer] [facility], [facility].; [place] [employer] [facility], [facility]. 09-04-2012 16:30-0400 Body weight 149.69 kg Clare Harris [employer] [place] [employer] [facility], [facility].; [employer], [employer]. 09-04-2012 16:30-0400 Diastolic blood pressure 84 mm[Hg] Clare Harris [employer] [facility] [employer]. Comment on above: Patient Position: Sitting; Cuff Location : Left Arm; Cuff Size: Standard 09-04-2012 16:30-0400 Heart rate 100 /min Clare Alisa Elmoert [employer] [facility] [employer] Comment on above: Pattern: Regular 09-04-2012 16:30-0400 Systolic blood pressure 110 mm[Hg] Clare L Richert [employer] [place] [employer] [facility], [facility].; [employer] Comment on above: Patient Position: Sitting; Cuff Location : Left Arm; Cuff Size: Standard 08-23-2011 09:44-0400 Body weight 136.25 kg Rama Muhammadnatanael CAREYN [place] [employer] [facility], [employer].; [employer], [employer]. 08-23-2011 09:44-0400 Diastolic blood pressure 95 mm[Hg] Rama Kailynd [employer] [place] [employer] [facility], [employer].; [employer], [employer]. Comment on above: Patient Position: Sitting; Cuff Location : Left Arm; Cuff Size: Standard 08-23-2011 09:44-0400 Heart rate 109 /min Rama Muhammadnatanael [employer] [place] [employer] [facility], [employer].; [employer]. Comment on above: Pattern: Regular 08-23-2011 09:44-0400 Systolic blood pressure 135 mm[Hg] Rama uMhammadbamd [employer] [place] [employer] [facility], [employer].; [employer], [employer]. Comment on above: Patient Position: Sitting; Cuff Location : Left Arm; Cuff Size: Standard 08-16-2011 16:14-0500 Body weight 136.99 kg Clare Cuellar [place]moert [employer] [place] [employer] [facility], [employer].; [employer]. 08-16-2011 16:14-0500 Diastolic blood pressure 79 mm[Hg] Clare L Richert [employer], [employer].; [employer]. Comment on above: Patient Position: Sitting; Cuff Location : Left Arm; Cuff Size: Standard 08-16-2011 16:14-0500 Heart rate 66 /min Clare L Richert [employer], [employer].; [employer]. Comment on above: Pattern: Regular 08-16-2011 16:14-0500 Systolic blood pressure 122 mm[Hg] Clare Harris [facility], [employer].; [employer]. Comment on above: Patient Position: Sitting; Cuff Location : Left Arm; Cuff Size: Standard 05-17-2011 16:30-0500 Body height 180.34 cm Usha C [place] [employer] [facility] [employer]. 05-17-2011 16:30-0500 Body mass index (BMI) [Ratio] 42.23 kg/m2 Usha C Bk [employer] [facility], [facility].; [employer], [employer]. 05-17-2011 16:30-0500 Body surface area Derived from formula 2.52 m2 Usha C Bk [facility], [facility].; [employer]. 05-17-2011 16:30-0500 Body weight 137.35 kg Usha C [place] [facility] [employer] [facility], [employer].; [employer]. 05-17-2011 16:30-0500 Diastolic blood pressure 79 mm[Hg] Usha C Bk [employer] [facility], [employer].; [employer]. Comment on above: Patient Position: Sitting; Cuff Location : Left Arm; Cuff Size: Large 05-17-2011 16:30-0500 Heart rate 67 /min Usha C Bk [employer] [facility], [employer].; [employer]. Comment on above: Pattern: Regular 05-17-2011 16:30-0500 Systolic blood pressure 120 mm[Hg] Usha C Kb [employer] [place] [employer] [facility], [facility].; [employer]. Comment on above: Patient Position: Sitting; Cuff Location : Left Arm; Cuff Size: Large 04-19-2011 16:23-0500 Body weight 143.79 kg Wendy Gutierrez [facility], [employer].; [employer]. 04-19-2011 16:23-0500 Diastolic blood pressure 87 mm[Hg] Wendy Gutierrez [employer], [employer].; [employer]. Comment on above: Patient Position: Sitting; Cuff Location : Left Arm; Cuff Size: Standard 04-19-2011 16:23-0500 Heart rate 81 /min Wendy Keith Brenda [facility], Inc.; [employer]. Comment on above: Pattern: Regular 04-19-2011 16:23-0500 Systolic blood pressure 136 mm[Hg] Wendy Suhlabach [employer] [place] [employer] [facility], Inc.; [employer] Comment on above: Patient Position: Sitting; Cuff Location : Left Arm; Cuff Size: Standard 04-12-2011 15:07-0400 Body height 180.34 cm Usha Brandie AbreuBk [facility] [employer], [employer].; [employer] 04-12-2011 15:07-0400 Body mass index (BMI) [Ratio] 44.6 kg/m2 Usha C [place] [employer], [employer].; [employer] 04-12-2011 15:07-0400 Body surface area Derived from formula 2.57 m2 Usha C [place] [facility], Inc.; [employer] 04-12-2011 15:07-0400 Body weight 145.06 kg Usha Brandie AbreuBk [employer], [employer].; [employer], [employer]. 04-12-2011 15:07-0400 Diastolic blood pressure 80 mm[Hg] Usha C [place] [employer], [employer], [employer]. Comment on above: Patient Position: Sitting; Cuff Location : Right Arm; Cuff Size: Large 04-12-2011 15:07-0400 Heart rate 77 /min Usha Brandie Bk [employer], [employer]. Comment on above: Pattern: Regular 04-12-2011 15:07-0400 Systolic blood pressure 126 mm[Hg] Usha C [place] [employer], [employer]. Comment on above: Patient Position: Sitting; Cuff Location : Right Arm; Cuff Size: Large 09-15-2010 11:04-0400 Body height 180.34 cm Elvira TranNorthwell HealthActive-Semi, Inc.; [employer] 09-15-2010 11:04-0400 Body mass index (BMI) [Ratio] 42.4 kg/m2 Elvira Pinzon [employer]ESSION[employer] [facility], [facility].; [place] [employer] [facility], [employer]. 09-15-2010 11:04-0400 Body surface area Derived from formula 2.52 m2 Elvira Pinzon [facility], [facility].; [place] [employer] [facility], Inc. 09-15-2010 11:04-0400 Body temperature 97.1 [degF] VeraVernell Pinzon [facility], [facility].; [employer], [employer] Comment on above: Method: Tympanic 09-15-2010 11:04-0400 Body weight 137.89 kg Elvira Pinzon [facility], [facility].; [employer] [facility], [employer]. 09-15-2010 11:04-0400 Diastolic blood pressure 78 mm[Hg] Elvira Pinzon [facility], [facility].; [employer], [employer]. Comment on above: Patient Position: Sitting; Cuff Location : Left Arm; Cuff Size: Large 09-15-2010 11:04-0400 Heart rate 67 /min VeraVernell Pinzon [facility], [facility].; [place] [employer]. Comment on above: Pattern: Regular 09-15-2010 11:04-0400 Inhaled oxygen concentration 20 % Elvira Pinzon [facility], [facility].; [employer] [facility], [employer]. Comment on above: Room air 09-15-2010 11:04-0400 Inhaled oxygen concentration 21 % Vera Stuckey [facility], [facility].; [employer], [employer]. Comment on above: Room air 09-15-2010 11:04-0400 SaO2% (BldA) [Mass fraction] 95 % VeraVernell Pinzon [facility], [facility].; [employer]. 09-15-2010 11:04-0400 Systolic blood pressure 123 mm[Hg] Elvira Pinzon [facility], [facility].; [employer]. Comment on above: Patient Position: Sitting; Cuff Location : Left Arm; Cuff Size: Large 07-28-2010 16:18-0500 Body height 180.34 cm Shelly Keller LEDA Work Phone: [employer].; [employer]. 07-28-2010 16:18-0500 Body mass index (BMI) [Ratio] 27.62 kg/m2 Shelly Arianna [employer]ESSIONAL Work Phone: [employer].; [employer]. 07-28-2010 16:18-0500 Body surface area Derived from formula 2.1 m2 Shelly Arianna [employer] PROFESSIONAL Work Phone: [employer].; [employer]. 07-28-2010 16:18-0500 Body weight 89.81 kg Shelly Arianna [employer]ESSIONAL Work Phone: [employer].; [employer]. 07-28-2010 16:18-0500 Diastolic blood pressure 68 mm[Hg] Shelly Arianna [employer]ESSIONAL Work Phone: [employer].; [employer]. Comment on above: Patient Position: Sitting; Cuff Location : Left Arm; Cuff Size: Large 07-28-2010 16:18-0500 Heart rate 78 /min Shelly Arianna [employer]ESSIONAL Work Phone: [employer].; [employer]. Comment on above: Pattern: Regular 07-28-2010 16:18-0500 Systolic blood pressure 106 mm[Hg] Shelly Arianna [employer] PROFESSIONAL Work Phone: [employer].; [employer]. Comment on above: Patient Position: Sitting; Cuff Location : Left Arm; Cuff Size: Large 05-14-2010 14:54-0500 Body weight 125.19 kg Shelly Arianna [employer]ESSIONAL Work Phone: [employer].; [employer]. 05-14-2010 14:54-0500 Diastolic blood pressure 77 mm[Hg] Shelly Arianna [employer]ESSIONAL Work Phone: [employer].; [employer]. Comment on above: Patient Position: Sitting; Cuff Location : Left Arm; Cuff Size: Standard 05-14-2010 14:54-0500 Heart rate 78 /min Shelly Arianna [employer] PROFESSIONAL Work Phone: [employer].; [employer]. Comment on above: Pattern: Regular 05-14-2010 14:54-0500 Systolic blood pressure 113 mm[Hg] Shelly Arianna [employer] PROFESSIONAL Work Phone: [employer].; [employer]. Comment on above: Patient Position: Sitting; Cuff Location : Left Arm; Cuff Size: Standard 04-14-2010 15:13-0400 Body height 180.34 cm Shelly Velasquezy COM[employer] PAR[employer] PROFESSIONAL Work Phone: [employer].; [employer]. 04-14-2010 15:13-0400 Body mass index (BMI) [Ratio] 38.49 kg/m2 Shelly Velasquezy [employer]ESSIONAL Work Phone: [employer].; [employer]. 04-14-2010 15:13-0400 Body surface area Derived from formula 2.42 m2 Shelly Velasquezy [employer] PROFESSIONAL Work Phone: [employer].; [employer]. 04-14-2010 15:13-0400 Body weight 125.19 kg Shelly Velasquezy [employer]ESSIONAL Work Phone: [employer].; [employer]. 04-14-2010 15:13-0400 Diastolic blood pressure 73 mm[Hg] Shelly Velasquezy [employer] PROFESSIONAL Work Phone: [employer].; [employer]. Comment on above: Patient Position: Sitting; Cuff Location : Left Arm; Cuff Size: Large 04-14-2010 15:13-0400 Heart rate 68 /min Shelly Arianna [employer] PAR[employer] PROFESSIONAL Work Phone: [employer].; [employer]. Comment on above: Pattern: Regular 04-14-2010 15:13-0400 Systolic blood pressure 109 mm[Hg] Shelly Arianna [employer] PAR[employer] PROFESSIONAL Work Phone: [employer].; [employer]. Comment on above: Patient Position: Sitting; Cuff Location : Left Arm; Cuff Size: Large 03-24-2010 11:08-0400 Body height 180.34 cm Shelly Keller LPN Work Phone: [employer].; [employer]. 03-24-2010 11:08-0400 Body mass index (BMI) [Ratio] 40.45 kg/m2 Shelly Arianna [employer] PAR[employer] PROFESSIONAL Work Phone: [employer].; [employer]. 03-24-2010 11:08-0400 Body surface area Derived from formula 2.47 m2 [facility] COM[employer]ER [employer] PARA PROFESSIONAL Work Phone: [employer].; [employer]. 03-24-2010 11:08-0400 Body weight 131.54 kg Shelly Arianna [employer] PAR[employer] PROFESSIONAL Work Phone: [employer].; [employer]. 03-24-2010 11:08-0400 Diastolic blood pressure 100 mm[Hg] Shelly Keller [employer] PROFESSIONAL Work Phone: [employer].; [employer]. Comment on above: Patient Position: Sitting; Cuff Location : Left Arm; Cuff Size: Large 03-24-2010 11:08-0400 Heart rate 89 /min Shelly Arianna COM[employer]ER [employer] PAR[employer] PROFESSIONAL Work Phone: [employer]; [employer]. Comment on above: Pattern: Regular 03-24-2010 11:08-0400 Systolic blood pressure 143 mm[Hg] Shelly Velasquezy [employer] PAR[employer] PROFESSIONAL Work Phone: [employer]; [employer]. Comment on above: Patient Position: Sitting; Cuff Location : Left Arm; Cuff Size: Large Encounters Encounter Date Encounter Type Care Provider Facility Start: 03-29-2024 End: 03-30-2024 Patient encounter status Edin Tomlinson PA-C Work Phone: [employer]; [employer]. Start: 03-29-2024 End: 03-30-2024 Periodic preventive med est patient 40-64yrs Edin [facility]linson [facility]C [facility] Start: 03-29-2024 Patient encounter status Edin Tomlinson [facility]-C [facility]; [facility] Start: 03-29-2024 Edin kate PA-C Work Phone: [facility] Start: 03-25-2024 End: 03-25-2024 Telephone encounter Micah Reid MD Work Phone: Endocrinology Comment on above: Orders (Dexcom G7) Start: 02-27-2024 End: 02-27-2024 ambulatory EDIN TOMLINSON Facility:[facility] Start: 02-27-2024 End: 02-27-2024 Patient encounter procedure Micah Reid MD Work Phone: Endocrinology Comment on above: Type 2 diabetes lisy itus without complication, with long-term current use of insulin (HCC) (Primary Dx) Start: 01-31-2024 End: 02-07-2024 Refill Micah Reid MD Work Phone: Endocrinology Comment on above: Med Change Request; Question Start: 01-24-2024 End: 01-24-2024 Office outpatient visit 15 minutes Edin Tomlinson PA-C [facility]. Start: 01-10-2024 End: 01-10-2024 ambulatory Micah Reid MD Work Phone: Endocrinology Comment on above: Insulin Type 2 diabetes lisy itus without complication, with long-term current use of insulin (HCC) (Primary Dx) Start: 01-10-2024 E-mail encounter fro m caregiver Micah Reid MD Work Phone: Endocrinology Start: 01-10-2024 End: 01-10-2024 Telemedicine consultation with patient Micah Reid MD Work Phone: Endocrinology Start: 11-28-2023 End: 11-28-2023 Office outpatient visit 25 minutes Luke Davi PA-C Work Phone: [employer]. Start: 11-28-2023 Luke Hochstetl er PA-C Work Phone: [employer]. Start: 11-22-2023 End: 11-22-2023 Office outpatient visit 15 minutes Luke Davi PA-C Work Phone: [employer]. Start: 11-10-2023 End: 11-10-2023 Luke Davi PA-C Work Phone: [employer] Start: 11-08-2023 End: 11-08-2023 Luke Davi PA-C Work Phone: [employer] Start: 11-07-2023 End: 11-07-2023 ambulatory LUKE E DAVI Facility:[facility] Start: 11-07-2023 End: 11-07-2023 Patient encounter procedure Tierra Caal MD Work Phone: Urology Comment on above: Malignant neoplasm o f urinary bladder, unspecified site (HCC) (Primary Dx) Start: 11-01-2023 End: 11-01-2023 Luke Davi PA-C Work Phone: [employer]. Start: 10-30-2023 End: 10-30-2023 Luke Davi PA-C Work Phone: [employer]. Start: 10-24-2023 End: 10-24-2023 Medication Luke Davi PA-C Work Phone: [employer] Start: 10-24-2023 End: 10-24-2023 Luke Davi PA-C Work Phone: [employer] Start: 10-18-2023 Telephone encounter Tierra Caal MD Work Phone: [place] [facility] Comment on above: Appointment Start: 10-18-2023 ambulatory TIERRA BONNER JR Facility:[facility] Start: 10-18-2023 End: 10-18-2023 Subsequent hospital visit by physician Tierra Caal MD Work Phone: [facility] Comment on above: Bladder mass [N32.89 ] Start: 10-06-2023 Refill Tierra bonner MD Work Phone: Urology Comment on above: Refill Request Start: 10-04-2023 End: 10-04-2023 Admission to establishment [facility] Pre Surgical Testing Start: 10-04-2023 End: 10-05-2023 ambulatory TIERRA CAAL JR Pre Surgical Testing Comment on above: Pre-op examination; Obesity, Class III, BMI >= 40; Type 2 diabetes mellitus without complication, with long-term current use of insulin (HCC); Pulmonary embolism with acute cor pulmonale, unspecified chronicity, unspecified pulmonary embolism type (HCC); Hypertension, unspecified type; Gastro-esophageal reflux disease without esophagitis; Sleep apnea, unspecified type; 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) Start: 10-04-2023 End: 10-04-2023 Preprocedural examination done Pst 1 [facility] Work Phone: Start: 10-02-2023 Preprocedural examin ation done Pst 1 [facility] Start: 10-02-2023 Encounter for other preprocedural examination TIERRA CAAL JR [facility] Start: 09-19-2023 End: 09-19-2023 ambulatory EDIN TOMLINSON Facility:[facility] Start: 09-19-2023 End: 09-19-2023 Patient encounter procedure Tierra Caal MD Work Phone: Urology Comment on above: Malignant neoplasm o f urinary bladder, unspecified site (HCC) (Primary Dx) Start: 09-12-2023 End: 09-13-2023 Patient encounter procedure Edin Tomlinson PA-C Work Phone: [facility] Start: 09-12-2023 End: 09-13-2023 Edin Tomlinson PA-C Work Phone: [employer] [facility] Start: 04-13-2023 End: 04-13-2023 ambulatory EDIN TOMLINSON Facility:[facility] Start: 04-06-2023 End: 04-06-2023 Refill Tierra Caal MD Work Phone: Urology Comment on above: Refill Request Malignant neoplasm o f urinary bladder, unspecified site (HCC) Start: 04-05-2023 End: 04-05-2023 Office outpatient visit 25 minutes Edin Tomlinson PA-C [facility] Start: 04-03-2023 End: 04-04-2023 ambulatory [facility] Start: 03-30-2023 End: 03-30-2023 ambulatory CAROLINA Hernan DAVI Facility:[facility] Start: 03-27-2023 End: 03-27-2023 ambulatory [facility] Start: 03-20-2023 End: 03-20-2023 ambulatory [facility] Start: 03-14-2023 Telephone encounter Tierra Caal MD Work Phone: Urology Comment on above: Appointment Malignant neoplasm o f urinary bladder, unspecified site (HCC) (Primary Dx) Start: 03-14-2023 End: 03-14-2023 Patient encounter procedure Tierra Caal MD Work Phone: Urology Comment on above: Malignant neoplasm o f urinary bladder, unspecified site (HCC) (Primary Dx) Start: 03-10-2023 ambulatory Mr. Eleno Lorenz Milagro ty:[id number] Start: 03-10-2023 Patient encounter procedure Lydia Precious COLLEGE ARCHIVIST [facility] Work [facility]: Start: 03-03-2023 ambulatory Mr. Eleno Lorenz Milagro ty:[id number] Start: 03-03-2023 Patient encounter procedure Lydia Lang COLLEGE ARCHIVIST Work Phone: [facility] Work Phone: Start: 02-24-2023 ambulatory Mr. Eleno Humphrey ty:[id number] Start: 02-24-2023 Patient encounter procedure Jessica Garcia PT Work Phone: [facility] Work Phone: Start: 02-20-2023 ambulatory Mr. Eleno Humphrey ty:[id number] Start: 02-15-2023 ambulatory Mr. Eleno Humphrey ty:[id number] Start: 02-15-2023 Patient encounter procedure Lydia Lang COLLEGE ARCHIVIST Work Phone: [facility] Work Phone: Start: 02-10-2023 ambulatory Mr. Eleno Humphrey ty:[id number] Start: 02-10-2023 Patient encounter procedure Lydia Lang COLLEGE ARCHIVIST Work Phone: [facility] Work Phone: Start: 02-10-2023 PTFUADULT4, Provider : Lydia Lang, Status: Pen, Time: 10:45 AM Lydia Lang COLLE[employer] ARCHIVIST Work Phone: [facility] Work Phone: Start: 02-08-2023 Patient encounter procedure Lydia Lang COLLEGE ARCHIVIST Work Phone: [facility] Work Phone: Start: 02-08-2023 ambulatory Mr. Eleno Humphrey ty:[id number] Start: 02-01-2023 Patient encounter procedure Brianne Ferguson COLLEGE ARCHIVIST Work Phone: [facility] Work Phone: Start: 02-01-2023 ambulatory Mr. Eleno Humphrey ty:[id number] Start: 02-01-2023 PTFUADULT4, Provider : Brianne Ferguson, Status: Pen, Time: 8:30 AM Lydia Lang COLLEGE ARCHIVIST Work Phone: [facility] Work Phone: Start: 01-30-2023 Patient encounter procedure Lydia Lang COLLEGE ARCHIVIST Work Phone: [facility] Work Phone: Start: 01-30-2023 ambulatory Mr. Eleno Humphrey ty:[id number] Start: 01-27-2023 End: 01-27-2023 Historical Summary Edin Tomlinson PA-C Work Phone: [facility] Start: 01-27-2023 End: 01-27-2023 Edin Tomlinson PA-C Work Phone: [facility] Start: 01-25-2023 ambulatory Mr. Eleno Humphrey ty:[id number] Start: 01-25-2023 Patient encounter procedure Brianne Ferguson COLLEGE ARCHIVIST Work Phone: [facility] Work Phone: Start: 01-25-2023 PTFUADULT4, Provider : Brianne Ferguson, Status: Pen, Time: 10:00 AM Jessica Larsonerud PT Work Phone: [facility] Work Phone: Start: 01-23-2023 Patient encounter procedure Jessica Trosterud PT Work Phone: [facility] Work Phone: Start: 01-23-2023 ambulatory Mr. Eleno Humphrey ty:[id number] Start: 12-15-2022 End: 12-15-2022 Orders Edin Tomlinson PA-C Work Phone: [employer] Start: 12-15-2022 End: 12-15-2022 Luke Davi [facility]-C [facility] Start: 12-05-2022 End: 12-08-2022 Orders Luke Dav[facility] PA-C [facility] Start: 12-05-2022 End: 12-08-2022 Luke Dav[facility] PA-C [facility] Start: 11-11-2022 End: 11-11-2022 Office outpatient visit 15 minutes Luke Davi PA-C Work [facility] Start: 11-09-2022 Patient encounter procedure Shakeel Mueller PT [facility] Work Phone: Start: 11-09-2022 ambulatory Luke Davi Facili ty:[id number] Start: 11-04-2022 ambulatory Luke Davi Facili ty:[id number] Start: 11-04-2022 Patient encounter procedure Lydia Lang COLLEGE ARCHIVIST Work Phone: [facility] Work Phone: Start: 11-02-2022 ambulatory Provider Pending Facili ty:[id number] Start: 10-28-2022 ambulatory Provider Pending Facili ty:[id number] Start: 10-26-2022 ambulatory Luke Davi Facili ty:[id number] Start: 10-24-2022 Refill Daniela Flores dennys DO Work Phone: Urology Comment on above: Refill Request Start: 10-21-2022 Patient encounter procedure Lydia Lang COLLEGE ARCHIVIST Work Phone: [facility] Work Phone: Start: 10-21-2022 PTFUADULT4, Provider : Lydia Lang, Status: Pen, Time: 4:15 PM Lydia Lang COLLEGE ARCHIVIST Work Phone: [facility] Work Phone: Start: 10-21-2022 ambulatory Luke Davi Facili ty:[id number] Start: 10-19-2022 Patient encounter procedure Lydia Lang COLLEGE ARCHIVIST Work Phone: [facility] Work Phone: Start: 10-19-2022 ambulatory Luke Davi Facili ty:[id number] Start: 10-13-2022 ambulatory Luke Davi Facili ty:[id number] Start: 10-07-2022 End: 10-10-2022 Patient encounter procedure Angeline Robertson RN [facility] Start: 10-07-2022 End: 10-10-2022 Patient encounter status Angeline Robertson RN [facility]; [facility] Start: 10-07-2022 End: 10-10-2022 Carolinake Davi PA-C Work Phone: [facility] Start: 09-13-2022 Telephone encounter Daniela rojas DO Work Phone: Urology Comment on above: Cysto Scheduling Start: 09-06-2022 End: 09-06-2022 Patient encounter procedure Daniela Cruz DO Work Phone: [facility] Comment on above: Malignant neoplasm o f urinary bladder, unspecified site (HCC) (Primary Dx) Start: 06-18-2022 Refill Daniela Flores n DO Work Phone: Urology Comment on above: Refill Request Start: 06-07-2022 Refill Daniela Backna n DO Work Phone: Urology Comment on above: Refill Request Start: 04-21-2022 End: 04-21-2022 Patient encounter procedure Daniela Cruz DO Work Phone: Urology Comment on above: Malignant neoplasm o f trigone of urinary bladder (HCC) (Primary Dx) Start: 04-08-2022 End: 04-08-2022 Office outpatient visit 40 minutes Edin Tomlinson PA-C Work Phone: [facility]. Start: 03-31-2022 End: 03-31-2022 Nursing evaluation of patient and report Nurse Maurisio Shah Mc Work Phone: Urology Comment on above: Malignant neoplasm o f trigone of urinary bladder (HCC) (Primary Dx) Start: 03-24-2022 End: 03-24-2022 Nursing evaluation of patient and report [facility] Work Phone: [facility]rology Comment on above: Malignant neoplasm o f trigone of urinary bladder (HCC) (Primary Dx) Start: 03-17-2022 End: 03-17-2022 Nursing evaluation of patient and report Nurse Maurisio Shah Mc Work Phone: Urology Comment on above: Malignant neoplasm o f urinary bladder, unspecified site (HCC) (Primary Dx) Start: 03-10-2022 End: 03-10-2022 Nursing evaluation of patient and report Nurse Maurisio Shah Mc Work Phone: Urology Comment on above: Malignant neoplasm o f urinary bladder, unspecified site (HCC) (Primary Dx) Start: 03-03-2022 End: 03-03-2022 Orders Only Daniela Cruz DO Work Phone: Urology Comment on above: Malignant neoplasm o f urinary bladder, unspecified site (HCC) (Primary Dx) Start: 02-18-2022 Telephone encounter Daniela rojas DO Work Phone: Urology Comment on above: [employer] Start: 01-27-2022 End: 01-27-2022 Admission to [place] [facility] Start: 01-27-2022 End: 01-27-2022 ambulatory Pst 1 Pre Surgical Testing Comment on above: Preop examination (P rimary Dx); Malignant neoplasm of urinary bladder, unspecified site (HCC) [C67.9 (ICD-10-CM)]; Chronic obstructive pulmonary disease, unspecified COPD type (HCC) [J44.9 (ICD-10-CM)]; Type 2 diabetes mellitus without complication, unspecified whether terminal operator insulin use (HCC) [E11.9 (ICD-10-CM)]; Hypertension, unspecified type [I10 (ICD-10-CM)]; Morbid obesity (HCC) [E66.01 (ICD-10-CM)]; KHALIF (obstructive sleep apnea) [G47.33 (ICD-10-CM)]; Hx of blood clots [Z86.718 (ICD-10-CM)] Start: 01-27-2022 End: 01-27-2022 Preprocedural examination done Pst 1 Pre Surgical Testing Start: 01-20-2022 End: 01-20-2022 Patient encounter procedure Daniela Cruz DO Work Phone: Urology Comment on above: Malignant neoplasm o f urinary bladder, unspecified site (HCC) (Primary Dx); 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) Start: 12-29-2021 Telephone encounter Daniela rojas DO Work Phone: Urology Comment on above: Patient Question Start: 11-18-2021 Orders Only Daniela noyola DO Work Phone: Urology Comment on above: Malignant neoplasm o f lateral wall of bladder (HCC) (Primary Dx) Start: 11-02-2021 End: 11-02-2021 Admission to [address] Start: 11-02-2021 End: 11-02-2021 ambulatory Pst 1 Pre Surgical Testing Comment on above: Pre-op testing; Malignant neoplasm of urinary bladder, unspecified site (HCC); Primary hypertension; Diabetes mellitus due to underlying condition with hyperosmolarity without coma, without long-term current use of insulin (HCC); Morbid obesity (HCC); KHALIF (obstructive sleep apnea) Start: 11-02-2021 End: 11-02-2021 Patient encounter status Pst 1 Pre Surgical Te sting Start: 10-21-2021 End: 10-21-2021 Patient encounter procedure Daniela Cruz DO Work Phone: Urology Comment on above: Malignant neoplasm o f urinary bladder, unspecified site (HCC) (Primary Dx); Acute cystitis with hematuria Start: 09-16-2021 End: 09-16-2021 ambulatory EDIN TOMLINSON [facility] Start: 09-16-2021 End: 09-16-2021 Initial preventive medicine new patient 40-64yrs Luke Davi PA-C Work Phone: [employer] Start: 09-16-2021 End: 09-16-2021 Patient encounter procedure Luke Davi PA-C Work Phone: [employer]; [employer] Start: 09-16-2021 End: 09-16-2021 Patient encounter status Luke Davi PA-C Work Phone: [employer]; [employer]. Start: 03-24-2021 End: 03-24-2021 Office outpatient visit 25 minutes Luke Davi PA-C Work Phone: [employer] Start: 03-11-2021 End: 03-11-2021 Telephone follow-up Luke Davi PA-C Work Phone: [employer] Start: 03-11-2021 End: 03-11-2021 Luke Davi PA-C Work Phone: [employer] Start: 01-19-2021 End: 01-19-2021 Office outpatient visit 25 minutes Luke Davi PA-C Work Phone: [employer] Start: 12-21-2020 End: 12-21-2020 Follow-up encounter Luke Davi PA-C Work Phone: [employer] Start: 12-21-2020 End: 12-21-2020 Luke Davi PA-C Work Phone: [employer] Start: 09-22-2020 End: 09-22-2020 Office outpatient visit 25 minutes Luke Davi PA-C Work Phone: [employer]. Start: 04-14-2020 End: 04-14-2020 Follow-up encounter Luke Davi PA-C Work Phone: [employer]. Start: 04-14-2020 End: 04-14-2020 Luke Davi PA-C Work Phone: [employer]. Start: 04-09-2020 End: 04-09-2020 Office outpatient visit 25 minutes Luke Davi PA-C Work Phone: [employer]. Start: 02-13-2020 End: 02-13-2020 Office outpatient visit 15 minutes Luke Davi PA-C Work Phone: [employer]. Start: 01-29-2020 End: 01-29-2020 Follow-up encounter Luke Davi PA-C Work Phone: [employer]. Start: 01-29-2020 End: 01-29-2020 Luke Davi PA-C Work Phone: [employer]. Start: 01-20-2020 End: 01-20-2020 Office outpatient visit 25 minutes Luke Davi PA-C Work Phone: [employer]. Start: 01-01-2020 End: 01-01-2020 Follow-up encounter Luke Davi PA-C Work Phone: [employer]. Start: 01-01-2020 End: 01-01-2020 Luke Davi PA-C Work Phone: [employer]. Start: 12-17-2019 End: 12-17-2019 Office outpatient visit 15 minutes Luke Davi PA-C Work Phone: [employer]. Start: 11-27-2019 End: 11-27-2019 Follow-up encounter Luke Davi PA-C Work Phone: [employer]. Start: 11-27-2019 End: 11-27-2019 Luke Davi PA-C Work Phone: [employer]. Start: 11-14-2019 End: 11-15-2019 Orders Luke Davi PA-C Work Phone: [employer]. Start: 11-14-2019 End: 11-15-2019 Luke Davi PA-C Work Phone: [employer]. Start: 11-08-2019 Patient encounter procedure [facility] Facility:[facility] Start: 10-18-2019 End: 10-18-2019 Office outpatient visit 25 minutes Luke Davi PA-C Work Phone: [employer]. Start: 08-28-2019 End: 08-28-2019 Follow-up encounter Luke Davi PA-C Work Phone: [employer]. Start: 08-28-2019 End: 08-28-2019 Luke Davi PA-C Work Phone: [employer]. Start: 08-13-2019 Patient encounter procedure [facility] Facility:[facility] Start: 08-01-2019 End: 08-01-2019 Office outpatient visit 15 minutes Luke Davi PA-C Work Phone: [employer]. Start: 07-30-2019 End: 07-30-2019 Orders Luke Davi PA-C Work Phone: [employer]. Start: 07-30-2019 End: 07-30-2019 Luke Davi PA-C Work Phone: [employer]. Start: 07-19-2019 End: 07-20-2019 Office outpatient visit 25 minutes Luke Davi PA-C Work Phone: [employer] Start: 07-16-2019 End: 07-16-2019 Follow-up encounter Luke Davi PA-C Work Phone: [employer]. Start: 07-16-2019 End: 07-16-2019 Luke Davi PA-C Work Phone: [employer]. Start: 07-03-2019 End: 07-03-2019 Follow-up encounter Luke Davi PA-C Work Phone: [employer]. Start: 07-03-2019 End: 07-03-2019 Luke Davi PA-C Work Phone: [employer]. Start: 06-28-2019 End: 06-28-2019 Orders Luke Davi PA-C Work Phone: [employer]. Start: 06-28-2019 End: 06-28-2019 Luke Davi PA-C Work Phone: [employer]. Start: 06-25-2019 End: 06-25-2019 Office outpatient visit 15 minutes Luke Davi PA-C Work Phone: [employer]. Start: 06-19-2019 End: 06-19-2019 Follow-up encounter Luke Davi PA-C Work Phone: [employer]. Start: 06-19-2019 End: 06-19-2019 Luke Davi PA-C Work Phone: [employer]. Start: 06-18-2019 End: 06-18-2019 Telephone follow-up Luke Davi PA-C Work Phone: [employer]. Start: 06-18-2019 End: 06-18-2019 Luke Davi PA-C Work Phone: [employer]. Start: 05-22-2019 End: 05-22-2019 Follow-up encounter Luke Davi PA-C Work Phone: [employer]. Start: 05-22-2019 End: 05-22-2019 Luke Davi PA-C Work Phone: [employer]. Start: 04-17-2019 End: 04-17-2019 Follow-up encounter Luke Davi PA-C Work Phone: [employer]. Start: 04-17-2019 End: 04-17-2019 Luke Davi PA-C Work Phone: [employer]. Start: 04-11-2019 End: 04-11-2019 Office outpatient visit 25 minutes Luke Davi PA-C Work Phone: [employer]. Start: 02-05-2019 End: 02-05-2019 Office outpatient visit 15 minutes Luke Davi PA-C Work Phone: [employer]. Start: 01-30-2019 End: 01-30-2019 Follow-up encounter Luke Davi PA-C Work Phone: [employer]. Start: 01-30-2019 End: 01-30-2019 Luke Davi PA-C Work Phone: [employer]. Start: 01-22-2019 End: 01-22-2019 Follow-up encounter Luke Davi PA-C Work Phone: [employer]. Start: 01-22-2019 End: 01-22-2019 Luke Davi PA-C Work Phone: [employer]. Start: 12-26-2018 End: 12-26-2018 Follow-up encounter Luke Davi PA-C Work Phone: [employer]. Start: 12-26-2018 End: 12-26-2018 Luke Davi PA-C Work Phone: [employer]. Start: 12-18-2018 End: 12-18-2018 Office outpatient visit 25 minutes Luke Davi PA-C Work Phone: [employer]. Start: 11-14-2018 End: 11-14-2018 Follow-up encounter Luke Davi PA-C Work Phone: [employer]. Start: 11-14-2018 End: 11-14-2018 Luke Davi PA-C Work Phone: [employer]. Start: 11-08-2018 End: 11-08-2018 Office outpatient visit 25 minutes Luke Davi PA-C Work Phone: [employer]. Start: 10-25-2018 End: 10-25-2018 Orders Luke Davi PA-C Work Phone: [employer]. Start: 10-25-2018 End: 10-25-2018 Luke Davi PA-C Work Phone: [employer]. Start: 09-19-2018 End: 09-20-2018 Office outpatient visit 25 minutes Luke Davi PA-C Work Phone: [employer]. Start: 08-28-2018 End: 08-28-2018 Medication Luke Davi PA-C Work Phone: [employer]. Start: 08-28-2018 End: 08-28-2018 Luke Davi PA-C Work Phone: [employer]. Start: 08-09-2018 End: 08-09-2018 Office outpatient visit 15 minutes Luke Davi PA-C Work Phone: [employer] Start: 03-29-2018 End: 03-29-2018 Office outpatient visit 15 minutes Luke Davi PA-C Work Phone: [employer]. Start: 03-19-2018 End: 03-19-2018 Office outpatient visit 15 minutes Luke Davi PA-C Work Phone: [employer]. Start: 02-19-2018 End: 02-19-2018 Historical Summary Luke Davi PA-C Work Phone: [employer]. Start: 02-19-2018 End: 02-19-2018 Luke Davi PA-C Work Phone: [employer]. Start: 02-05-2018 End: 02-05-2018 Orders Luke Davi PA-C Work Phone: [employer]. Start: 02-05-2018 End: 02-05-2018 Luke Davi PA-C Work Phone: [employer] Start: 01-09-2018 End: 01-09-2018 Orders Luke Davi PA-C Work Phone: [employer]. Start: 01-09-2018 End: 01-09-2018 Luke Davi PA-C Work Phone: [employer] Start: 01-09-2018 End: 01-09-2018 Office outpatient visit 25 minutes Luke Davi PA-C Work Phone: [employer] Start: 12-21-2017 End: 12-22-2017 Patient encounter Dameon Landa Facility[facility] Start: 12-21-2017 Patient encounter Facil [id number] Start: 11-10-2017 End: 11-10-2017 Patient encounter Zackery Quezada [facility] Start: 11-09-2017 End: 11-09-2017 Office outpatient visit 25 minutes Luke Davi PA-C Work Phone: [employer] Start: 10-02-2017 End: 10-03-2017 Orders Luke Davi PA-C Work Phone: [employer] Start: 10-02-2017 End: 10-03-2017 Luke Davi PA-C Work Phone: [employer]. Start: 09-27-2017 End: 09-27-2017 Historical Summary Luke Davi PA-C Work Phone: [employer]. Start: 09-27-2017 End: 09-27-2017 Luke Davi PA-C Work Phone: [employer]. Start: 09-26-2017 End: 09-26-2017 Medication Luke Davi PA-C Work Phone: [employer]. Start: 09-26-2017 End: 09-26-2017 Luke Davi PA-C Work Phone: [employer]. Start: 09-25-2017 End: 09-25-2017 Office outpatient visit 25 minutes Luke Davi PA-C Work Phone: [employer]. Start: 08-18-2017 End: 08-18-2017 Office outpatient visit 25 minutes Luke Davi PA-C Work Phone: [employer]. Start: 06-14-2017 End: 06-14-2017 Medication Luke Davi PA-C Work Phone: [employer]. Start: 06-14-2017 End: 06-14-2017 Luke Davi PA-C Work Phone: [employer]. Start: 06-14-2017 End: 06-14-2017 Medication Luke Davi PA-C Work Phone: [employer]. Start: 06-14-2017 End: 06-14-2017 Luke Davi PA-C Work Phone: [employer]. Start: 11-25-2016 End: 11-25-2016 Office outpatient visit 15 minutes Luke Davi PA-C Work Phone: [employer]. Start: 08-29-2016 End: 08-29-2016 Office outpatient visit 15 minutes Luke Davi PA-C Work Phone: [employer]. Start: 08-08-2016 End: 08-08-2016 Office outpatient visit 25 minutes Luke Davi PA-C Work Phone: [employer]. Start: 08-08-2016 End: 08-08-2016 Preprocedural examination done Luke Davi PA-C Work Phone: [employer]. Start: 07-08-2016 End: 07-08-2016 Patient encounter procedure Luke Davi PA-C Work Phone: [employer]. Start: 07-08-2016 End: 07-08-2016 Luke Davi PA-C Work Phone: [employer]. Start: 04-15-2016 End: 04-15-2016 Medication Luke Davi PA-C Work Phone: [employer]. Start: 04-15-2016 End: 04-15-2016 Luke Davi PA-C Work Phone: [employer]. Start: 03-07-2016 End: 03-08-2016 Patient encounter procedure Luke Davi PA-C Work Phone: [employer]. Start: 03-07-2016 End: 03-08-2016 Luke Davi PA-C Work Phone: [employer]. Start: 02-17-2016 End: 02-18-2016 Admission to same day surgery center Luke Davi PA-C Work Phone: [employer]. Start: 02-17-2016 End: 02-18-2016 Luke Davi PA-C Work Phone: [employer]. Start: 02-10-2016 End: 02-11-2016 Patient encounter procedure Luke Davi PA-C Work Phone: [employer]. Start: 02-10-2016 End: 02-11-2016 Luke Davi PA-C Work Phone: [employer]. Start: 02-02-2016 End: 02-02-2016 Medication Luke Davi PA-C Work Phone: [employer]. Start: 02-02-2016 End: 02-02-2016 Luke Davi PA-C Work Phone: [employer]. Start: 11-19-2015 End: 11-19-2015 Medication Luke Davi PA-C Work Phone: [employer]. Start: 11-19-2015 End: 11-19-2015 Luke Davi PA-C Work Phone: [employer]. Start: 11-17-2015 End: 11-17-2015 Orders Luke Davi PA-C Work Phone: [employer]. Start: 11-17-2015 End: 11-17-2015 Luke Davi PA-C Work Phone: [employer]. Start: 11-16-2015 End: 11-16-2015 Office outpatient visit 15 minutes Luke Davi PA-C Work Phone: [employer]. Start: 10-30-2015 End: 10-30-2015 Office outpatient visit 25 minutes Luke Davi PA-C Work Phone: [employer]. Start: 07-24-2015 End: 07-24-2015 Office outpatient visit 25 minutes Luke Davi PA-C Work Phone: [employer]. Start: 07-09-2015 End: 07-09-2015 Office outpatient visit 15 minutes Luke Davi PA-C Work Phone: [employer] Start: 03-04-2015 End: 03-05-2015 Office outpatient visit 15 minutes Luke Davi PA-C Work Phone: [employer]. Start: 11-14-2014 End: 11-17-2014 Office outpatient visit 25 minutes Luke Davi PA-C Work Phone: [employer]. Start: 09-18-2014 End: 09-19-2014 Medication Luke Davi PA-C Work Phone: [employer]. Start: 09-18-2014 End: 09-19-2014 Luke Davi PA-C Work Phone: [employer]. Start: 08-22-2014 End: 08-22-2014 Orders Luke Davi PA-C Work Phone: [employer]. Start: 08-22-2014 End: 08-22-2014 Luke Davi PA-C Work Phone: [employer]. Start: 07-18-2014 End: 07-18-2014 Office outpatient visit 25 minutes Luke Davi PA-C Work Phone: [employer]. Start: 06-30-2014 End: 07-01-2014 Office outpatient visit 25 minutes Luke Davi PA-C Work Phone: [employer]. Start: 06-18-2013 End: 06-18-2013 Patient encounter procedure Luke Davi PA-C Work Phone: [employer]. Start: 06-18-2013 End: 06-18-2013 Luke Davi PA-C Work Phone: [employer]. Start: 05-14-2013 End: 05-17-2013 Patient encounter procedure Luke Davi PA-C Work Phone: [employer]. Start: 05-14-2013 End: 05-17-2013 Luke Davi PA-C Work Phone: [employer]. Start: 03-05-2013 End: 03-05-2013 Patient encounter procedure Luke Davi PA-C Work Phone: [employer]. Start: 03-05-2013 End: 03-05-2013 Luke Davi PA-C Work Phone: [employer]. Start: 09-04-2012 End: 09-04-2012 Historical Summary Luke Davi PA-C Work Phone: [employer]. Start: 09-04-2012 End: 09-05-2012 Patient encounter procedure Luke Davi PA-C Work Phone: [employer]. Start: 09-04-2012 End: 09-05-2012 Luke Davi PA-C Work Phone: [employer]. Start: 08-23-2011 End: 08-23-2011 Patient encounter procedure Luke Davi PA-C Work Phone: [employer]. Start: 08-23-2011 End: 08-23-2011 Luke Davi PA-C Work Phone: [employer]. Start: 08-16-2011 End: 08-17-2011 Patient encounter procedure Luke Davi PA-C Work Phone: [employer]. Start: 08-16-2011 End: 08-17-2011 Luke Davi PA-C Work Phone: [employer]. Start: 08-06-2011 End: 08-16-2011 Orders Luke Davi PA-C Work Phone: [employer]. Start: 08-06-2011 End: 08-16-2011 Luke Davi PA-C Work Phone: [employer]. Start: 05-17-2011 End: 05-18-2011 Patient encounter procedure Luke Davi PA-C Work Phone: [facility] [employer] Start: 05-17-2011 End: 05-18-2011 Luke Davi PA-C Work Phone: [facility] [employer] Start: 04-19-2011 End: 04-20-2011 Patient encounter procedure Luke Davi PA-C Work Phone: [facility] [employer]. Start: 04-19-2011 End: 04-20-2011 Luke Davi PA-C Work Phone: [facility] [employer]. Start: 04-12-2011 End: 04-12-2011 Patient encounter procedure Luke Davi PA-C Work Phone: [employer]. Start: 04-12-2011 End: 04-12-2011 Luke Davi PA-C Work Phone: [employer]. Start: 09-15-2010 End: 09-15-2010 Patient encounter procedure Luke Davi PA-C Work Phone: [employer]. Start: 09-15-2010 End: 09-15-2010 Luke Davi PA-C Work Phone: [employer]. Start: 07-28-2010 End: 07-28-2010 Patient encounter procedure Luke Davi PA-C Work Phone: [employer]. Start: 07-28-2010 End: 07-28-2010 Luke Davi PA-C Work Phone: [employer]. Start: 05-14-2010 End: 05-14-2010 Patient encounter procedure Luke Davi PA-C Work Phone: [employer]. Start: 05-14-2010 End: 05-14-2010 Luke Davi PA-C Work Phone: [employer]. Start: 04-14-2010 End: 04-14-2010 Patient encounter procedure Edin Peteretler PA-C Work Phone: [facility] [employer] [facility] Start: 04-14-2010 End: 04-14-2010 [facility]C [facility] Start: 03-24-2010 End: 03-29-2010 Patient encounter procedure Edin Peteretler PA-C Work Phone: [facility] [facility] Start: 03-24-2010 End: 03-29-2010 Luke Davi PA-C Work Phone: [facility] Start: 03-24-2010 End: 03-24-2010 Historical Summary Luherberth PeterDavi PA-C Work Phone: [facility] [facility] Start: 03-24-2010 End: 03-24-2010 Luke Davi PA-C Work Phone: [facility] Patient encounter procedure Fariba Marquez MA [facility]; [facility] Patient encounter procedure Ricardo Joe LPN [facility]; [facility] Patient encounter status Ricardo Joe LPN [facility]; [facility] Patient encounter status Kole Robertson RN [facility]; [facility] Patient encounter status Edin Becerra Davi PA-C Work Phone: [facility]; [facility] Procedures Date Procedure Procedure Detail Performing Clinician Start: 03-29-2024 End: 03-29-2024 Adv care pln/ no alt dcsn mkr docd or refusal Edin Portillostetler PA-C Work Phone: Start: 03-29-2024 End: 03-29-2024 Depression screening Edin Portillostetler PA-C Work Phone: Start: 03-29-2024 End: 03-29-2024 Flu immunize order/admin Edin cai PA-C Work Phone: Start: 03-29-2024 End: 03-29-2024 PPPS, subseq visit Edin Tomlinson PA-C Work Phone: Start: 03-29-2024 End: 03-29-2024 Scr dep neg, no plan reqd Edin padilla PA-C Work Phone: Start: 02-27-2024 Hemoglobin A1c/Hemoglobin.total in Blood Micah Reid MD Work Phone: Start: 02-27-2024 [facility] [employer] [facility] ovider Start: 11-28-2023 End: 11-28-2023 Angeline Robertson RN Start: 11-07-2023 Urnls dip stick/tabl et rgnt auto w/o microscopy Tierra Caal MD Work Phone: Start: 10-18-2023 Gluc bld gluc mntr d ev cleared fda spec home use Tierra Caal MD Work Phone: Start: 10-18-2023 Gluc bld gluc mntr d ev cleared fda spec home use Tierra Caal MD Work Phone: Start: 09-19-2023 Urnls dip stick/tabl et rgnt auto w/o microscopy Tierra Caal MD Work Phone: Start: 09-12-2023 End: 09-12-2023 Angeline Robertson RN Start: 03-14-2023 Urnls dip stick/tabl et rgnt auto w/o microscopy Tierra Caal MD Work Phone: Start: 01-16-2023 End: 01-16-2023 Examination of retina Ricardo Joe LPN Comment on above: Negative Finding. [facility] e care for you in [place] Start: 12-08-2022 End: 12-14-2022 Mri any jt upper extremity w/o contrast matrl Edin Tomlinson PA-C Work Phone: Comment on above: Clinical Indications : Shoulder pain, rotator cuff disorder suspected, xray done Start: 11-11-2022 End: 11-15-2022 Radex shoulder complete minimum 2 views Edin Tomlinson PA-C Work Phone: Start: 10-07-2022 End: 10-07-2022 Adv care pln tlkd & alt dcsn maker docd Edin Tomlinson PA-C Work Phone: Start: 10-07-2022 End: 10-07-2022 Depression screening Edin Tomlinson PA-C Work Phone: Start: 10-07-2022 End: 10-07-2022 Falls risk assessment documented Edin Tomlinson PA-C Work Phone: Start: 10-07-2022 End: 10-07-2022 Hemoglobin A1c/Hemoglobin.total in Blood Angeline Robertson RN Comment on above: 5.9% Start: 10-07-2022 End: 10-07-2022 Lab findings surveillance Angeline tobin RN Comment on above: Normal. Results:. 90 Start: 10-07-2022 End: 10-07-2022 Lipid panel Angeline Robertson RN Start: 10-07-2022 End: 10-07-2022 Pos clin depres scrn f/u doc Edin Tomlinson PA-C Work Phone: Start: 10-07-2022 End: 10-07-2022 PPPS, subseq visit Edin Tomlinson PA-C Work Phone: Start: 04-08-2022 End: 04-08-2022 Flu immunize order/admin Edin cai PA-C Work Phone: Start: 03-03-2022 Urnls dip stick/tabl et rgnt auto w/o microscopy [facility] Provider Start: 10-21-2021 Urnls dip stick/tabl et rgnt auto w/o microscopy Daniela Cruz DO Work Phone: Start: 09-16-2021 End: 09-16-2021 Depression screening Edin Tomlinson PA-C Work Phone: Start: 09-16-2021 End: 09-20-2021 Dup-scan xtr veins complete bilateral study Edin Peteretler PA-C Work Phone: Start: 09-16-2021 End: 09-16-2021 Falls risk assessment documented Edin Peteretler PA-C Work Phone: Start: 09-16-2021 End: 09-16-2021 Pos clin depres scrn f/u doc Edin Peteretler PA-C Work Phone: Start: 09-16-2021 End: 09-16-2021 PPPS, subseq visit Edin Peteretler PA-C Work Phone: Start: 09-16-2021 End: 09-16-2021 Pt falls assess docd 2/> falls/fall w/injury/yr Edin Peteretler PA-C Work Phone: Start: 03-24-2021 End: 03-24-2021 Flu immunize order/admin Edin Rogers ler PA-C Work Phone: Start: 11-10-2020 End: 11-10-2020 UA P:C Ratio Angeline Robertson RN Comment on above: ordered by endo Start: 04-09-2020 End: 04-09-2020 Flu immunize order/admin London Villela Work Phone: Start: 04-09-2020 End: 04-09-2020 Most recent hemoglobin a1c level < 7.0% London Lou MD Work Phone: Start: 04-11-2019 End: 04-11-2019 Flu immunize order/admin London Villela Work Phone: Start: 04-11-2019 End: 04-11-2019 Most recent hemoglobin a1c level >9.0% London Lou MD Work Phone: Start: 03-18-2019 End: 03-18-2019 Right-sided Lumbar ablation of medial branch L3, L4, L5, S1 Angeline Robertson RN Comment on above: [facility] Start: 03-18-2019 End: 03-18-2019 Angeline Robertson RN Start: 02-20-2019 [facility] Daniela rojas DO Work Phone: Start: 08-09-2018 End: 08-09-2018 Foot examination performed London Lou MD Work Phone: Start: 08-09-2018 End: 08-09-2018 Most recent hemoglobin a1c level < 7.0% London Lou MD Work Phone: Start: 08-09-2018 End: 08-09-2018 Negative microalbuminuria test result doc&rev London Lou MD Work Phone: Start: 11-09-2017 End: 11-09-2017 Body mass index documented London Lou MD Work Phone: Start: 11-09-2017 End: 11-09-2017 Most recent diastolic blood pressure < 80 mm hg London Lou MD Work Phone: Start: 11-09-2017 End: 11-09-2017 Most recent hemoglobin a1c level < 7.0% London Lou MD Work Phone: Start: 11-09-2017 End: 11-09-2017 Most recent systolic blood pressure <130 mm hg London Lou MD Work Phone: Start: 08-18-2017 End: 08-18-2017 Body mass index documented London Lou MD Work Phone: Start: 08-18-2017 End: 08-18-2017 Most recent diastolic blood pressure 80-89 mm hg London Lou MD Work Phone: Start: 08-18-2017 End: 08-18-2017 Most recent systolic blood pressure <130 mm hg London Lou MD Work Phone: Start: 02-18-2016 End: 03-03-2016 AMMON Bosch CNP Work Phone: Start: 02-18-2016 End: 03-03-2016 Follow Up Appt 1 month Halina burger [employer] Work Phone: Start: 02-18-2016 End: 03-03-2016 Pulmonary Function Test - complete Halina Bosch [employer] Work Phone: Start: 02-18-2016 End: 03-03-2016 Pulmonary stress test/simple Halina Bosch [employer] Work Phone: Start: 11-17-2015 End: 11-19-2015 Ct abdomen & pelvis w/contrast material London Lou MD Work Phone: Start: 07-09-2015 End: 07-09-2015 Triamcinolone acet inj NOS London Lou MD Work Phone: Start: 03-24-2015 End: 03-24-2015 Total replacement of hip Angeline joseph RN Comment on above: Right. Dr. Rodriguez Start: 08-22-2014 End: 10-06-2014 Polysom 6/>yrs sleep w/cpap 4/> addl dat attnd Zechariah Astorga MD Work Phone: Start: 07-18-2014 End: 08-22-2014 Polysom 6/>yrs sleep 4/> addl dat attnd London Lou MD Work Phone: Start: 05-14-2013 End: 05-14-2013 Triamcinolone acet inj NOS London Lou MD Work Phone: Start: 05-14-2013 End: 05-20-2013 X-ray exam of hip London Lou MD Work Phone: Comment on above: Several year history of R hip pain. Start: 04-12-2011 End: 04-15-2011 Us abdominal real time w/image limited London Lou MD Work Phone: History of operative procedure on knee Status post knee surgery Edin Tomlinson PA-C Work Phone: Plan of Treatment Date Care Activity Detail Author Start: 10-03-2024 BP Controlled (<130/80) BP Controlled (<130/80) [facility] Start: 09-18-2024 BP Controlled (<130/80) BP Controlled (<130/80) [facility] Start: 08-26-2024 Hemoglobin A1c measurement HbA1C [facility] Start: 06-26-2024 End: 06-26-2024 ambulatory 06/26/2024 11:40 AM [facility]ology [address], [place] [id number] Micah Reid MD [address] [place], [place] [id number] VV 3 MTH F/U Endocrinology Comment on above: VV 3 MTH F/U Start: 04-11-2024 End: 07-11-2024 Microalbumin/Creatinine [Mass Ratio] in Urine ALBUMIN/CREATININE RATIO, URINE Lab Routine Type 2 diabetes mellitus without complication, with long-term current use of insulin (HCC) Expected: 04/11/2024, Expires: 07/11/2024 [facility] Comment on above: Expected: 04/11/2024, Expires: Start: 04-09-2024 End: 04-09-2024 Patient encounter procedure 04/09/2024 9:30 AM EDT Office Visit Urology [address] [address] Tierra Caal Jr., MD [address] [place] [address] [facility] Comment on above: cysto Start: 03-29-2024 [facility]. Start: 02-27-2024 End: 02-27-2024 Patient encounter procedure 02/27/2024 4:20 PM EDT Office Visit Endocrinology [address] [place] [place] [phone] Micah Reid MD [address] [place], [place] [phone] 2 follow up Endocrinology Comment on above: 2 follow up Start: 02-11-2024 Influenza vaccination Influenza Vaccine (#1) [facility] Start: 01-10-2024 End: 04-10-2024 Comprehensive metabolic 2000 panel - Serum or Plasma COMPREHENSIVE METABOLIC PANEL Lab Routine Type 2 diabetes mellitus without complication, with long-term current use of insulin (HCC) Expected: 01/10/2024, Expires: 04/10/2024 [facility] Comment on above: Expected: 01/10/2024, Expires: Start: 01-10-2024 End: 04-10-2024 Hemoglobin A1c in Blood HEMOGLOBIN A1C Lab Routine Type 2 diabetes mellitus without complication, with long-term current use of insulin (HCC) Expected: 01/10/2024, Expires: 04/10/2024 [facility] Work Phone: Comment on above: Expected: 01/10/2024, Expires: Start: 01-10-2024 End: 04-10-2024 Lipid 1996 panel - Serum or Plasma LIPID PANEL BASIC Lab Routine Type 2 diabetes mellitus without complication, with long-term current use of insulin (HCC) Expected: 01/10/2024, Expires: 04/10/2024 [facility] Comment on above: Expected: 01/10/2024, Expires: Start: 11-28-2023 Patient encounter procedure Medical; EXTENDED RTN - rtn DM [facility], [employer]. Start: 28-Nov-2023 15:50-04:00 COLLETTE Tomlinson Appointment Request [facility] [employer]. Start: 11-28-2023 [facility]. Start: 11-28-2023 Urine albumin quantitative [facility] [employer]. Start: 11-07-2023 End: 11-07-2023 Patient encounter procedure 11/07/2023 8:30 AM EDT Office Visit Urology [address] [address] Tierra Caal Jr., MD [address] [place] [address] post op--ok'd by [facility] Comment on above: post op--ok'd by Zackery Start: 10-18-2023 End: 10-18-2023 Admission to same day surgery center 10/18/2023 8:30 AM EDT - 10/18/2023 10:00 AM EDT Surgery [facility] [address] [place] [address] Tierra Caal Jr., MD [address] [place], [place] [id number] CYSTOURETHROSCOPY W/FULGURATION &/OR RESECTION MEDIUM BLADDER TUMOR(S) 2.0 - 5.0 CM W/SALINE BIPOLAR [facility] Comment on above: CYSTOURETHROSCOPY W/FULGURATION &/OR RES ECTION MEDIUM BLADDER TUMOR(S) 2.0 - 5.0 CM W/SALINE BIPOLAR Start: 10-18-2023 End: 10-18-2023 Bladder instillation anticarcinogenic agent [place] [facility] Start: 10-18-2023 End: 10-18-2023 Cystourethroscopy w/dest &/rmvl med bladder elena [place] Start: 10-18-2023 Subsequent hospital visit by physician 10/18/2023 8:30 AM EDT Hospital Encounter [facility] [address] [facility] [place] [address] Tierra Caal Jr., MD [address] [place], [place] [address] Bladder mass [N32.89] [facility] Comment on above: Bladder mass [N32.89] Start: 09-12-2023 Patient encounter procedure Medical; EXTENDED RTN - high BS [employer]. Start: 12-Sep-2023 15:50-04:00 COLLETTE Tomlinson Appointment Request [employer]. Start: 04-10-2023 GERALD, Provider: Jessica Garcia, Status: Pen, Time: 1:15 PM GERALD, Provider: Jessica Garcia, Status: Pen, Time: 1:15 PM [facility] [place] Work Phone: Start: 04-03-2023 [email or web address], Provider: Lydia Lang, Status: Pen, Time: 11:30 AM PTFU[facility]ULT[facility], Provider: Lydia Lang, Status: Pen, Time: 11:30 AM [facility] [place] Work Phone: Start: 03-27-2023 PTFUADULT4, Provider: Jessica Garcia, Status: Pen, Time: 2:30 PM PTFU[facility]ULT[facility], Provider: Jessica Garcia, Status: Pen, Time: 2:30 PM [facility] [place] Work Phone: Start: 03-20-2023 PTFUADULT4, Provider: Leeann Cid, Status: Pen, Time: 1:15 PM [facility], Provider: Leeann Cid, Status: Pen, Time: 1:15 PM [facility] [place] Work Phone: Start: 03-10-2023 PTFUADULT4, Provider: Lydia Lang, Status: Pen, Time: 10:45 AM PTFU[facility]ULT[facility], Provider: Lydia Lang, Status: Pen, Time: 10:45 AM [facility] [place] Work Phone: Start: 03-03-2023 PTFUADULT4, Provider: Lydia Lang, Status: Pen, Time: 4:15 PM [facility], Provider: Lydia Lang, Status: Pen, Time: 4:15 PM [facility] [place] Work Phone: Start: 02-24-2023 PTRECHECKA, Provider: Jessica Garcia, Status: Pen, Time: 9:30 AM PTRECHECKA, Provider: Jessica Garcia, Status: Pen, Time: 9:30 AM [facility] Work Phone: Start: 02-20-2023 PTFUADULT4, Provider: Lydia Lang, Status: Pen, Time: 3:30 PM PTFU[facility]ULT[facility], Provider: Lydia Lang, Status: Pen, Time: 3:30 PM [facility] [place] Work Phone: Start: 02-20-2023 PTFUADULT4, Provider: Jessica Garcia, Status: Pen, Time: 2:00 PM PTFU[facility]ULT[facility], Provider: Jessica Garcia, Status: Pen, Time: 2:00 PM [facility] Work Phone: Start: 02-15-2023 PTFUADULT4, Provider: Lydia Lang, Status: Pen, Time: 10:00 AM [facility], Provider: Lydia Lang, Status: Pen, Time: 10:00 AM [facility] Work Phone: Start: 02-10-2023 Influenza vaccination Influenza Vaccine (#1) [facility] Start: 02-10-2023 PTFUADULT4, Provider: Lydia Lang, Status: Pen, Time: 10:45 AM [facility]FU[facility]ULT[facility], Provider: Lydia Lang, Status: Pen, Time: 10:45 AM [facility] Work Phone: Start: 02-10-2023 PTFUADULT4, Provider: Jessica Garcia, Status: Pen, Time: 10:30 AM PTFU[facility]ULT[facility], Provider: Jessica Garcia, Status: Pen, Time: 10:30 AM [facility] Work Phone: Start: 02-08-2023 PTFUADULT4, Provider: Lydia Lang, Status: Pen, Time: 10:00 AM PTFUADULT4, Provider: Lydia Lang, Status: Pen, Time: 10:00 AM [facility] [place] Work Phone: Start: 02-01-2023 PTFUADULT4, Provider: Brianne Ferguson, Status: Pen, Time: 8:30 AM PTFUADULT4, Provider: Brianne Ferguson, Status: Pen, Time: 8:30 AM [facility] Work Phone: Start: 01-30-2023 PTFUADULT4, Provider: Jessica Garcia, Status: Pen, Time: 3:45 PM PTFU[facility]ULT[facility], Provider: Jessica Garcia, Status: Pen, Time: 3:45 PM [facility] Work Phone: Start: 11-09-2022 PTRECHECKA, Provider: Shakeel Mueller, Status: Pen, Time: 4:45 PM PTRECHECKA, Provider: Shakeel Mueller, Status: Pen, Time: 4:45 PM [facility] [place] Work Phone: Start: 11-04-2022 PTFUADULT4, Provider: Lydia Lang, Status: Pen, Time: 3:30 PM PTFUADULT4, Provider: Lydia Lang, Status: Pen, Time: 3:30 PM [facility] [place] Work Phone: Start: 11-02-2022 PTFUADULT4, Provider: Lydia Lang, Status: Pen, Time: 3:30 PM PTFU[facility]ULT[facility], Provider: Lydia Lang, Status: Pen, Time: 3:30 PM [facility] [place] Work Phone: Start: 10-28-2022 PTFUADULT4, Provider: Lydia Lang, Status: Pen, Time: 3:30 PM PTFU[facility]ULT4, Provider: Lydia Lang, Status: Pen, Time: 3:30 PM [facility] Work Phone: Start: 10-26-2022 PTFUADULT4, Provider: Lydia Lang, Status: Pen, Time: 3:30 PM PTFUADULT4, Provider: Lydia Lang, Status: Yamil, Time: 3:30 PM [facility] Work Phone: Start: 02-10-2022 Influenza vaccination INFLUENZA (#1) [facility] Start: 01-26-2022 End: 03-28-2022 Bacteria identified in Urine by Culture URINE CULTURE Microbiology Routine Preop examination Expected: 01/26/2022, Expires: 03/28/2022 [facility] Work Phone: Comment on above: Expected: 01/26/2022, Expires: 2 Start: 01-21-2022 End: 03-23-2022 CREATININE BLD CREATININE BLD Lab Routine Malignant neoplasm of urinary bladder, unspecified site (HCC) 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) Expected: 01/21/2022, Expires: 03/23/2022 [facility] Work Phone: Comment on above: Expected: 01/21/2022, Expires: 2 Start: 12-29-2021 End: 02-28-2022 Bacteria identified in Urine by Culture URINE CULTURE Microbiology Routine Gross hematuria Expected: 12/29/2021, Expires: 02/28/2022 [facility] Work Phone: Comment on above: Expected: 12/29/2021, Expires: 2 Start: 06-29-2021 COVID-19 VACCINE (3 - Booster for Pfizer series) COVID-19 VACCINE (3 - Booster for Pfizer series) [facility] Start: 06-01-2021 Shingrix Vaccine (2 of 2) Shingrix Vaccine (2 of 2) [facility] Start: 02-24-2021 COVID-19 VACCINE (3 - Pfizer risk series) COVID-19 VACCINE (3 - Pfizer risk series) [facility] Start: 02-21-2020 Colonoscopy COLONOSCOPY [facility] Start: 02-21-2020 COLORECTAL CANCER SCREENING COLORECTAL CANCER SCREENING [facility] Start: 02-21-2020 Screening for malignant neoplasm of colon [facility] Start: 10-30-2019 Influenza vaccination LUNG CANCER SCREENING [facility] Start: 10-30-2019 Screening for malignant neoplasm of lung Lung Cancer Screening [facility] Start: 10-30-2019 SHINGRIX VACCINE (1 of 2) SHINGRIX VACCINE (1 of 2) [facility] Start: 03-19-2019 Pneumococcal vaccination [facility] Start: 09-25-2017 Provider Instructions for Treatment [facility] Start: 06-19-2017 End: 06-19-2017 Appointment Appointment [facility] Phone: Start: 02-21-2017 Glaucoma screening Dilated Retinal Exam [facility] Start: 02-21-2017 Hepatitis C antibody, confirmatory test DILATED RETINAL EXAM [facility] Start: 12-21-2016 End: 12-21-2016 Appointment Appointment [facility] Phone: Start: 12-21-2016 End: 12-21-2016 DMB DMB [facility] Phone: Start: 12-21-2016 End: 12-21-2016 Follow Up Appt 6 months Follow Up Appt 6 months [facility] Phone: Start: 12-21-2016 End: 12-21-2016 [facility] Therapy [facility], [address] [place] [address], [facility] Phone: Start: 12-21-2016 End: 12-21-2016 Pulmonary Function Test - complete Pulmonary Function Test - complete [facility] Phone: Start: 09-21-2016 End: 09-21-2016 DMB DMB [facility] Phone: Start: 09-21-2016 End: 09-21-2016 Follow Up Appt 3 months Follow Up Appt 3 months [facility] Phone: Start: 06-23-2016 End: 06-23-2016 [facility] Phone: Start: 06-23-2016 End: 06-23-2016 Follow Up Appt 3 months Follow Up Appt 3 months [facility] Phone: Start: 03-16-2016 End: 03-16-2016 AMMON DOMINGOB [facility] Phone: Start: 03-16-2016 End: 03-16-2016 Follow Up Appt 3 months Follow Up Appt 3 months [facility] Phone: Start: 03-16-2016 End: 03-16-2016 Retitration with follow up (patient on CPAP currently) Retitration with follow up (patient on CPAP currently) [facility] Phone: Start: 02-18-2016 End: 03-03-2016 AMMON VERDE [facility] Phone: Start: 02-18-2016 End: 03-03-2016 Follow Up Appt 1 month Follow Up Appt 1 month [facility] Phone: Start: 02-18-2016 End: 03-03-2016 Pulmonary Function Test - complete Pulmonary Function Test - complete [facility] Phone: Start: 02-18-2016 End: 03-03-2016 Pulmonary stress test/simple Pulmonary stress testing; simple (eg, 6-minute walk) [facility] Phone: Start: 2014 COLOGUARD (FIT-DNA) COLOGUARD (FIT-DNA) [facility] Start: [address] COLONOGRAPHY [facility] Start: 2014 FECAL OCCULT BLOOD FECAL OCCULT BLOOD [facility] Start: 2014 Screening for malignant neoplasm of colon [facility] Start: 2014 SIGMOIDOSCOPY SIGMOIDOSCOPY [facility] Start: 1988 HEPATITIS B (1 of 3 - Risk 3-dose series) HEPATITIS B (1 of 3 - Risk 3-dose series) [facility] Start: 1988 Hepatitis B Vaccine (1 of 3 - 19+ 3-dose series) Hepatitis B Vaccine (1 of 3 - 19+ 3-dose series) [facility] Start: 1988 SHINGRIX VACCINE (1 of 2) SHINGRIX VACCINE (1 of 2) [facility] Start: 1988 Urine microalbumin profile [facility] Start: 10-30-1987 ANNUAL PCP TEAM CHRONIC DISEASE VISIT ANNUAL PCP TEAM CHRONIC DISEASE VISIT [facility] Start: 10-30-1987 BP CONTROLLED (<130/80) BP CONTROLLED (<130/80) [facility] Start: 10-30-1987 Hepatitis B surface antibody level LDL CHOLESTEROL [facility] Start: 10-30-1987 HEPATITIS C SCREENING HEPATITIS C SCREENING [facility] Start: 10-30-1987 Hepatitis C screening Hepatitis C Screening [facility] Start: 10-30-1987 HIV SCREENING HIV SCREENING [facility] Start: 10-30-1987 HIV screening HIV Screening [facility] Start: 1985 ONE PNEUMOVAX PRIOR TO AGE 65 ONE PNEUMOVAX PRIOR TO AGE 65 [facility] Start: 10-30-1979 3 comp foot exam completed DIABETIC FOOT EXAM [facility] Start: 10-30-1979 Diabetic foot examination Diabetic Foot Exam [facility] Start: 10-30-1979 Hepatitis B screening URINE ALBUMIN:CREATININE RATIO [facility] Start: 10-30-1975 PNEUMOCOCCAL (1 - PCV) PNEUMOCOCCAL (1 - PCV) [facility] Start: 10-30-1975 Pneumococcal vaccination Pneumococcal Vaccine (1 - PCV) [facility] Start: 1974 Hemoglobin A1c measurement HbA1C [facility] Start: 1974 Hemoglobin A1c/Hemoglobin.total in Blood HBA1C [facility] Start: 1969 HEPATITIS B (1 of 3 - 3-dose series) HEPATITIS B (1 of 3 - 3-dose series) [facility] Start: 1969 Hepatitis B Vaccine (1 of 3 - 3-dose series) Hepatitis B Vaccine (1 of 3 - 3-dose series) [facility] Bacteria identified in Urine by Culture URINE CULTURE Microbiology Routine Malignant neoplasm of urinary bladder, unspecified site (HCC) Acute cystitis with hematuria 10/21/2021 11:51 AM EDT [facility] Work Phone: End: 02-20-2023 Ct abdomen & pelvis w/o contrst 1/> body re CT UROGRAM WO/W IVCON Radiology Routine 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) 1 Occurrences starting 01/21/2022 until 02/20/2023 [facility] Work Phone: Comment on above: 1 Occurrences starting 01/21/2022 until 02/20/2023 CYTOLOGY NON-GAS SUBSTATION OPERATOR CYTOLOGY NON-GY N Lab Routine Malignant neoplasm of urinary bladder, unspecified site (HCC) 10/21/2021 11:50 AM EDT [facility] Work Phone: CYTOLOGY NON-GAS SUBSTATION OPERATOR CYTOLOGY NON-GY N Lab Routine Malignant neoplasm of urinary bladder, unspecified site (HCC) Ordered: 09/06/2022 [facility] Work Phone: Comment on above: Ordered: 09/06/2022 SURGICAL PATHOLOGY [facility] Work Phone: Comment on above: Release Upon Ordering for 1 Occurrences starting 10/18/2023, 1 completed [facility] Immunizations Immunization Date Immunization Notes Care Provider [facility] 03-29-2024 influenza, injectabl e, quadrivalent, preservative free Edin Tomlinson PA-C Work Phone: [facility]; [facility] 03-29-2024 influenza virus vaccine, unspecified formulation Edin Peteretayala KATHLEEN-Brandie Work Phone: [facility] 03-21-2023 influenza virus vaccine, unspecified formulation Micah Reid MD Work Phone: [facility] 04-08-2022 influenza, injectabl e, quadrivalent, contains preservative Luherberth PortilloDavi PA-C Work Phone: [facility]; [facility] [facility] Comment on above: Site: Right DeltoidV IS Given: * Influenza Inactivated (01/15/21) 04-08-2022 influenza virus vaccine, unspecified formulation Tierra Caal Jr., MD [facility] Phone[facility]; [facility] 03-24-2021 influenza virus vaccine, unspecified formulation Luke Davi PA-C Work Phone: [facility]; [facility] 03-24-2021 influenza, injectabl e, quadrivalent, contains preservative Luke Davi PA-C Work Phone: [facility]; [facility] Comment on above: Site: Right ArmVIS G iven: * Influenza - Inactivated (01/24/19) 01-27-2021 COVID-Pfizer (30 MCG/0.3 ML) Luke Davi PA-C Work Phone: [facility]; [facility] 01-06-2021 COVID-Pfizer (30 MCG/0.3 ML) Luke Davi PA-C Work Phone: [facility]; [facility] 04-09-2020 influenza, injectabl e, quadrivalent, contains preservative Luke Davi PA-C Work Phone: [facility]; [employer] Comment on above: Site: Right DeltoidV IS Given: * Influenza - Inactivated (01/16/15) 04-11-2019 influenza, injectabl e, quadrivalent, contains preservative Luke Davi PA-C Work Phone: [facility]; [employer]. Comment on above: Site: Right DeltoidV IS Given: * Influenza - Inactivated (01/16/15) 12-06-2018 bcg 50 mg injection (HERRERA BCG) Daniela Cruz DO Work Phone: [facility] Work Phone: 03-19-2018 pneumococcal polysaccharide vaccine, 23 valent Luke Davi PA-C Work Phone: [employer]. Comment on above: Site: Right DeltoidV IS Given: * Pneumococcal Polysaccharide (PPSV23) (10/03/14) 03-19-2018 influenza, injectabl e, quadrivalent, contains preservative Luke Davi PA-C Work Phone: [employer]; [employer]. Comment on above: Site: Left ArmVIS Gi jabari: * Influenza - Inactivated (01/16/15) 03-07-2016 unknown vaccine or immune globulin Luke Davi PA-C Work Phone: [employer]; [employer]. 03-07-2016 influenza, injectabl e, quadrivalent, contains preservative Luke Davi PA-C Work Phone: [employer]; [employer]. Comment on above: Site: Deltoid (Right )VIS Given: * Influenza - Inactivated (01/16/15) 03-12-2013 influenza, seasonal, injectable Luke Davi PA-C Work Phone: [employer]; [employer]. Comment on above: done at work 03-16-2010 influenza, seasonal, injectable Luke Davi PA-C Work Phone: [employer]; [employer]. Comment on above: at work Payers Date Payer Category Payer Medicaid MEDICAID [facility] MEDICAID [id number] 2019-Present [phone] [address] [place] [address] Medicaid [id number] 2019 Medicaid MEDICAID [facility] MEDICAID [id number] 2019-Present [phone] [address] [place] [address] Medicaid [id number] 2019 Medicare MEDICARE MEDICAR E A AND B [id number] 2019-Present [phone] [place] [address] Medicare [id number] 2019 Medicare MEDICARE MEDICAR E A AND B [id number] 2019-Present [phone] [place] [address] Medicare [id number] 2019 Medicare [id number] 2017 Unknown 1969 Unknown [id number] 1969 Unknown [id number] 2.840.1.422582.3.579.2.419 1969 Unknown [id number] 2.16.840.1.319874.3.579.2.651 1969 Unknown [id number] 2.16.840.1.135981.3.579.2.1068 1969 Unknown [id number] 2.16.840.1.177725.3.579.2.1068 1969 Unknown [id number] 2.16.840.1.455738.3.579.2.1068 1969 Unknown [id number] 2.16.840.1.485209.3.579.2.1068 1969 Unknown [id number] 2.16.840.1.457398.3.579.2.1068 1969 Unknown [id number] 2.16.840.1.203132.3.579.2.1068 1969 Unknown [id number] 2.16.840.1.423667.3.579.2.1068 1969 Unknown [id number] 2.16.840.1.507929.3.579.2.1068 1969 Unknown [id number] 2.16.840.1.213090.3.579.2.1068 1969 Unknown [id number] 2.16.840.1.283483.3.579.2.1068 1969 Unknown [id number] 2.16.840.1.094965.3.579.2.1068 1969 Unknown [id number] 2.16.840.1.646100.3.579.2.1068 1969 Unknown [id number] 2.16.840.1.260961.3.579.2.1068 1969 Unknown [id number] 2.16.840.1.895805.3.579.2.1068 1969 Unknown [id number] 2.16.840.1.496822.3.579.2.1068 1969 Unknown [id number] 2.16.840.1.408579.3.579.2.1068 1969 Unknown [id number] 2.16.840.1.449477.3.579.2.1068 1969 Unknown [id number] 2.16.840.1.534621.3.579.2.1068 1969 Unknown [id number] 2.16.840.1.285619.3.579.2.1068 1969 Unknown [id number] 2.16.840.1.289805.3.579.2.1242 1969 Unknown [id number] 2.16.840.1.078186.3.579.2.1242 1969 Unknown [id number] 2.16.840.1.871845.3.579.2.1243 1959 Unknown [id number] Medicare [id number] Social History Date Type Detail Facility Start: 03-19-2020 End: 09-09-2018 Tobacco smoking status NHIS Heavy tobacco smoker [facility] End: 09-09-2018 History of tobacco use Cigarette Smoker [facility] Start: 03-19-2020 End: 03-14-2023 Cigarettes smoked current (pack per day) - Reported 1.5 [employer] Start: 03-19-2020 End: 02-27-2024 Tobacco use and exposure Former smokeless tobacco user [facility] End: 06-12-1988 History of tobacco use Chews Tobacco [facility] Start: 10-21-2021 End: 02-27-2024 Alcohol intake Current drinker of alcohol (finding) [facility] Start: 1970 Sex Assigned At Male C [facility] Start: 10-11-2021 End: 04-21-2022 Exposure to SARS-CoV-2 (event) Not sure [facility] Start: 11-02-2021 End: 01-20-2022 Tobacco smoking status [facility] Light tobacco smoker [facility] Work Phone: Start: 2021 History SDOH Alcohol Comment weekly [facility] Start: 2021 End: 01-20-2022 Tobacco Comment pt has not smoked x 2 days 10/29/21 [facility] Start: 01-27-2022 End: 02-27-2024 Tobacco smoking status PAIS Smokes tobacco daily [facility] Work Phone: Start: 03-14-2023 End: 02-27-2024 Tobacco use panel [facility] National Score (1-100), lower number is lower risk 80 [facility] Start: 11-26-2018 Gender identity Identifies as male gender (finding) [facility] Start: 11-26-2018 Sexual orientation Heterosexual (fin ding) [facility] Tobacco Use: Tobacco Use: ; S moker. Smokes 1 pack of cigarettes per day. Current every day smoker. [employer] Smokes 1 pack of cigarettes per day [employer] Work Phone: Smoker [employer] Work Phone: Start: 10-18-2023 Alcohol Comment social [facility] NEGATED: Highlighted rowStart: HUBERF History of tobacco use Passive smoker [facility] Medical Equipment Procedure Code Equipment Code Equipment Origin al Text Equipment Identifier Dates [id number], [id number], [id number] Start: 06-26-2018 End: 01-20-2020 Comment on above: needles tests 3 times daily Goals Date Patient Goal Desired Activity /State 11-14-2018 11-14-2018 Clinical Notes 09-18-2018 to 03-25-2024 Telephone Encounter - Rama Logan MA - 03/25/2024 9:39 AM EDTTelephone Encounter - Rama Logan MA - 03/25/2024 9:39 AM EDTPatient InstructionsPatient InstructionsPatient Instructions Note Date & Type Note Facility 03-25-2024 Telephone encounter Note Fax received requesting [facility] notes for insurance coverage of CGM.Notes printed and faxed. Confirmation received and placed in file. Rama Logan MA [facility] 03-25-2024 Miscellaneous Notes Fax received requesting [facility] notes for insurance coverage of CGM.Notes printed and faxed. Confirmation received and placed in file. Rama Logan MA documented in this encounter [facility] 02-27-2024 Instructions Micah Reid MD - 02/27/2024 4:56 PM EDT Labs today Refills sent Follow up in 3 months documented in this encounter [facility] 02-27-2024 Note HNO ID: [id number] Author: JOSETTE SIM RN Service: ? Author Type: Registered Nurse Type: Progress Notes Filed: 02/27/2024 19:14 Note Text: [facility] 02-27-2024 History of Present illness Narrative Images from the original note were not included. [facility] Follow up visit Referred by: Edin Tomlinson PA-C Chief complaint: poorly controlled diabetes mellitus type 2 LV : 01/10/24 He is accompanied by his today History of Present Illness: -Initially diagnosed: 5 years ago, he went to hospital for a different problem, his sugars were checked followed by Hba1c and was diagnosed with diabetes. PMH: bladder cancer, SC PCP was managing since diagnosis He was following with Dr. Hartman at [facility], but had issues with insurance paying for the visit Start of insulin: was on insulin 5 years ago, stopped but started recently again due to worsening of diabetes Complications: Cardiovascular -- Yes HTN, cardiac arrest 5 to 6 years ago due to blood clot, on blood thinner xarelto Statin Use -- No, he does not want them due to too many complications Retinopathy -- No Last MASTER/Retina Eval: no retinopathy, macular degeneration, one year ago, october be September 2022 Nephropathy -- No ENE/ARB Use -- Yes, losartan Polyneuropathy -- did not report in the past of nay symptoms of neuropathy Foot Exam: unknown, done today Obesity -- Yes Other -- No -Family history of diabetes mellitus: niece with Type 1 DM Personal history of DKA or HHS-- yes, HHS and then started fast acting insulin Personal history of pancreatitis-- No History of alcohol consumption--occasionally Family history of thyroid cancer-- No Personal history of Urinary tract infections -- None is the recent past . Diabetes Medications -Current regimen: basaglar 20 units daily at bedtime 5 units of insulin regular with each meal, along with sliding scale as below: From 150-180, take 1 unit From 180-210, take 2 units From 210-240, take 3 units From 240-270, take 4 units, From 270-300, take 5 units From 300-330, take 6 units From 330-360, take 7 units Per patient's description goes his sensitivity factor is 20 metformin to 1000 mg BID Ozempic 1 mg weekly -Misses doses: He admits to not using Novolin usually, very rarelky dies he take it., but he is not missing Basaglar -Adverse medication effects: denies -Previously Used DM Meds: Yes Trulicity - due to shortage Glimepiride - stopped after starting trulicity . Blood sugars -Self monitoring of blood sugar via Dexcom G7: Summary of Personal CGM Findings: January 28, 03/01/2024 to February 27, 2024 1) CGM recording is adequate for interpretation. Worn 27% of time (02/08) 2) Average glucose is 158 mg/dL. BG range/St. Dev: 35 mg/dL 3) 80% time in range 70-180 mg/dL 4) Total frequency of hypoglycemia: 0% with BG < 70 - Hypoglycemia patterns: N/AA - Nocturnal hypoglycemia was NOT noted 5) Hyperglycemic episodes 18% with BG > 180, 2% more than 250 - Hyperglycemia patterns: Post dinner . Hypoglycemia -Hypoglycemic episodes: not lately -Frequency and timing of hypoglycemia: when weight loss occurred -Hypoglycemia awareness: yes, feels eyes burning, grainy sensation . Lifestyle -Exercise: walking sometimes , at work walks a lot, no regular exercise -Diet: Breakfast: coffee with cream Lunch: ham sandwich, left overs from fridge, chicken wraps Dinner: pizza, eats outside, fish, vegetables, shrimp, steak, carrots Snacking: sometimes Sods, juices sometimes ROS: SYSTEMIC: Denies fatigue, malaise, energy, Weight has been stable, heat/cold intolerance, polydipsia EYES: Denies blurring of vision, diplopia, pain/discomfort, excessive tearing, swelling of eye lids, bulging, redness, dryness, NECK: Denies goiter, lump, pain/discomfort, dysphagia, hoarseness, sore thorat RESPIRATORY: Denies dyspnea at rest/with exertion, orthopnea cough, pleuritic chest pain, snoring, apnea episodes CARDIOVASCULAR: Chest pain, palpitations, irregular heart beats GASTRO-INTESTINAL:Denies Nausea, vomiting, abdominal pain, hyperdefecation, rectal bleeding NEUROLOGICAL: Denies dizziness, lightheadedness, weakness, cramping, numbness/tingling of extremities MUSCULOSKELETAL: Denies joint pain, stiffness, swelling, cramping or weakness. GENITOURINARY: Denies polyuria, recurrent UTI/yeast infections SKIN: Denies dryness, brittle nails, hair loss, alopecia, excessive sweating, flushing, darkening of skin PSYCHIATRIC: Denies anxiety, depression, panic attacks, irritability, mood swings Past Medical History PAST MEDICAL HISTORY Diagnosis Date Anxiety and depression Arthritis Bilateral leg edema Bladder cancer (HCC) BPH (benign prostatic hyperplasia) Diabetic neuropathy (HCC) DM (diabetes mellitus) (HCC) GERD (gastroesophageal reflux disease) HTN (hypertension) Hx of blood clots 01/2016 Blood clot in lung and behind right knee cardiac arrest due to lack of oxygen Hypertension Intervertebral disc disorder with radiculopathy of lumbar region Malignant neoplasm of urinary bladder (HCC) Morbidly obese (HCC) KHALIF (obstructive sleep apnea) + bipap PE (pulmonary thromboembolism) (HCC) with acute cor pulmonale Tricuspid valve regurgitation Past Surgical History PAST SURGICAL HISTORY Procedure Laterality Date ANES TRANSURETHRAL RESECTION OF BLADDER TUMOR 11/2018 Instillation of Mitomycin C in Bladder APPENDECTOMY HX ARTHRP ACETBLR/PROX FEM PROSTC AGRFT/ALGRFT Right 03/2015 CYSTO W/CALIBRAT &/DILAT multiple including BCG, TURBT CYSTOSCOPY 11/11/2021 instillation of Cysview, Transurethral resection of bladder tumr, instillation of gemcitabine FOOT LEFT OP SURGERY Left 2017 KNEE ARTHROSCOPY/SURGERY Right 01/2016 LARGE BLADDER TUMORS 09/2018 Instillation of Mitomycin C LUMBAR 2019 Lumbar Ablation MEDIUM BLADDER TUMORS 02/2022 cysview RIGHT HEART CATHERIZATION 2015 Negative for CAD TOTAL HIP REPLACEMENT Right 2012 Family History FAMILY HISTORY Problem Relation Age of Onset other (Heart age 67) Mother other (Heart Attack age 64) Father Alzheimer's Disease Paternal Grandmother Diabetes Other Social History Social History Tobacco Use Smoking status: Every Day Current packs/day: 1.00 Average packs/day: 1 pack/day for 37.0 years (37.0 ttl pk-yrs) Types: Cigarettes Passive exposure: Never Smokeless tobacco: Former Types: Chew Quit date: 1988 Vaping Use Vaping status: Never Used Substance Use Topics Alcohol use: Yes Alcohol/week: 2.0 standard drinks of alcohol Types: 2 Cans of Beer (12oz) per week Comment: social Drug use: No Allergies ALLERGIES Allergen Reactions Morphine Itching IV burning and itching Quinine Hives Current Medications Current Outpatient Medications Medication Sig Dispense Refill Blood-Glucose Sensor (DEXCOM G7 SENSOR) elia 1 EACH EVERY 10 DAYS. -E11.9 3 Each 2 BASAGLAR KWIKPEN U-100 INSULIN 100 unit/mL (3 mL) Inject 20 Units subcutaneously daily at bedtime. metFORMIN (GLUCOPHAGE) 1,000 mg tablet Take 1 tablet by mouth two times a day. 180 tablet 0 BD INSULIN SYRINGE 0.5 mL 29 gauge x 1/2 1 Each four times daily. NOVOLIN R REGULAR U100 INSULIN 100 unit/mL injection Inject 5 Units subcutaneously three times a day before meals. Take 5 units of insulin regular with each meal, along with sliding scale as below: From 150-180, take 1 unit From 180-210, take 2 units From 210-240, take 3 units From 240-270, take 4 units, From 270-300, take 5 units From 300-330, take 6 units From 330-360, take 7 units semaglutide (OZEMPIC) 1 mg/dose (2 mg/1.5 mL) pen Inject 1 mg subcutaneously one time a week. tamsulosin (FLOMAX) 0.4 mg Take 1 capsule by mouth daily at bedtime. 90 capsule 3 cyclobenzaprine (FLEXERIL) 10 mg tablet Take 10 mg by mouth three times a day as needed for muscle spasm. FLUoxetine (PROZAC) 10 mg capsule Take 1 capsule by mouth once daily. atenolol (TENORMIN) 50 mg tablet Take 50 mg by mouth two times a day. FLUoxetine (PROZAC) 20 mg capsule Take 1 capsule by mouth once daily. gabapentin 600 mg Tb24 Take 1 tablet by mouth three times daily with meals. furosemide (LASIX) 40 mg tablet Take 40 mg by mouth once daily. losartan (COZAAR) 50 mg tablet Take 50 mg by mouth once daily. oxyCODONE-acetaminophen (PERCOCET) 5-325 mg tablet Take 1 tablet by mouth every 6 hours as needed. albuterol HFA (PROVENTIL HFA, VENTOLIN HFA) 90 mcg/actuation inhaler Inhale 2 Puffs as instructed every 4 hours as needed for wheezing/shortness of breath. acetaminophen (TYLENOL) 325 mg tablet Take 650 mg by mouth every 6 hours as needed for pain. XARELTO 20 mg tablet Take 20 mg by mouth once daily. omeprazole (PRILOSEC) 20 mg capsule Take 20 mg by mouth two times a day. oxybutynin XL (DITROPAN XL) 5 mg 24 hr tablet Use daily, or as needed for bladder spasms 90 tablet 3 dulaglutide (TRULICITY) 4.5 mg/0.5 mL pen injector Inject subcutaneously one time a week. (Patient not taking: Reported on 02/27/2024) diazePAM (VALIUM) 5 mg tablet Take 5 mg by mouth three times a day as needed. (Patient not taking: Reported on 10/04/2023) varenicline (CHANTIX) 1 mg tablet Take 1 tablet by mouth twice daily. (Patient not taking: Reported on 10/04/2023) 60 tablet 3 metaxalone (SKELAXIN) 800 mg tablet Take 800 mg by mouth three times daily as needed. (Patient not taking: Reported on 10/04/2023) No current facility-administered medications for this visit. Labs Hba1c on 09/12/23 was 9.5% Physical Exam: 02/27/24 1623 Pulse: 90 Resp: 20 SpO2: 95% Weight: (!) 175.5 kg (387 lb) Height: 180.3 cm (5' 11 ) General Appearance: Well appearing, alert, in no acute distress, well-hydrated, obese body habitus Skin: Tattoos noted on arms, multiple rashes/lesions on bilateral arms, on right lower page Eyes: Anicteric sclera. Extraocular movements are intact. Neck: Supple, no adenopathy; thyroid symmetric, normal size, no bruits. Lungs: Unlabored breathing Heart: RRR Abdomen: Soft, nontender, pendulous abdomen, injection sites without lipodystrophy Extremities: No deformities, edema, skin discoloration, no tremors. No concerns for fungal infection in between toes Musculoskeletal: No joint swelling, deformity, or tenderness. Peripheral Pulses: DP normal Neurologic: Gait normal. Reflexes normal and symmetric. Monofilament testing done today, with decreased sensation in bilateral mid to posterior feet Assessment and Plan Poorly controlled diabetes mellitus type 2 with hx of SC in the past before diagnosis -A1c 9.5% in 09/12/23. Hba1c POC today in clinic 7.2% -Current regimen: Novolin R U100 sliding scale above 150 mg/dl, 1:30 Basaglar 20 units daily metformin 1000 mg BID Ozempic 1 mg weekly -Insulin aspart, and lispro not covered by his insurance -Continue same regimen for now. He can discontinue Novolin R for correction, or use it with dinner only -Patient might need lowering of Lantus, once post dinner blood sugars are better controlled. He might benefit from starting Jardiance but with bladder cancer hx, risk of UTIs exists -Discussed extensively about blood sugar control, to start with diet and exercise to lose weight and improve insulin sensitivity, which in turn will help losing weight by reducing insulin doses. -Improved blood sugars is also improving skin rashes, encouraged to continue better glycemic control -He is [facility] [place] as he is traveling to [place] in April and will be there for 5 months, and hence cannot transfer prescriptions to [facility] in [place] if not able to brick picker everything before leaving -Lifestyle modifications (diet, exercise) have been discussed with the patient -A1c done today as mentioned above. Labs before next visit- urine microalbumin, Lipid panel, CMP - encouraged annual eye exam #Obesity Class II with serious comobidity - on ozempic as above - diet and exercise reviewed Scripts sent to pharmacy of pt choice: Yes Follow up in 3 months -will do virtual due to going to [place] around that time. I have confirmed and edited as necessary, the past medical, surgical, family, and social history as obtained by others. My final recommendations will be communicated back to the requesting provider by way of shared medical record or letter via US mail. Medical Decision Making: Problems: Moderate: 1+ chronic illnesses with change Data: Unique test result(s) reviewed: 3+ Unique test(s) ordered: 3+ Risk: Moderate: Drug management and Moderate risk from testing/treatment Medical Decision Making Level: 4 - Moderate Micah Reid MD Endocrinology Associate Staff [facility] Endocrinology and Metabolism [place] [phone] documented in this encounter [facility] 02-27-2024 Note HNO ID: [id number] Author: MICAH REID MD Service: ? Author Type: Physician Type: Progress Notes Filed: 02/27/2024 19:13 Note Text: [facility] Follow up visit Referred by: Edin Tomlinson PA-C Chief complaint: poorly controlled diabetes mellitus type 2 LV : 01/10/24 He is accompanied by his today History of Present Illness: -Initially diagnosed: 5 years ago, he went to hospital for a different problem, his sugars were checked followed by Hba1c and was diagnosed with diabetes. PMH: bladder cancer, SC PCP was managing since diagnosis He was following with Dr. Hartman at [facility], but had issues with insurance paying for the visit Start of insulin: was on insulin 5 years ago, stopped but started recently again due to worsening of diabetes Complications: Cardiovascular -- Yes HTN, cardiac arrest 5 to 6 years ago due to blood clot, on blood thinner xarelto Statin Use -- No, he does not want them due to too many complications Retinopathy -- No Last MASTER/Retina Eval: no retinopathy, macular degeneration, one year ago, octoberSeptember 2022 Nephropathy -- No ENE/ARB Use -- Yes, losartan Polyneuropathy -- did not report in the past of nay symptoms of neuropathy Foot Exam: unknown, done today Obesity -- Yes Other -- No -Family history of diabetes mellitus: niece with Type 1 DM Personal history of DKA or HHS-- yes, HHS and then started fast acting insulin Personal history of pancreatitis-- No History of alcohol consumption--occasionally Family history of thyroid cancer-- No Personal history of Urinary tract infections -- None is the recent past . Diabetes Medications -Current regimen: basaglar 20 units daily at bedtime 5 units of insulin regular with each meal, along with sliding scale as below: From 150-180, take 1 unit From 180-210, take 2 units From 210-240, take 3 units From 240-270, take 4 units, From 270-300, take 5 units From 300-330, take 6 units From 330-360, take 7 units Per patient's description goes his sensitivity factor is 20 metformin to 1000 mg BID Ozempic 1 mg weekly -Misses doses: He admits to not using Novolin usually, very rarelky dies he take it., but he is not missing Basaglar -Adverse medication effects: denies -Previously Used DM Meds: Yes Trulicity - due to shortage Glimepiride - stopped after starting trulicity . Blood sugars -Self monitoring of blood sugar via Dexcom G7: Summary of Personal CGM Findings: January 28, 03/01/2024 to February 27, 2024 1) CGM recording is adequate for interpretation. Worn 27% of time (02/08) 2) Average glucose is 158 mg/dL. BG range/St. Dev: 35 mg/dL 3) 80% time in range 70-180 mg/dL 4) Total frequency of hypoglycemia: 0% with BG < 70 - Hypoglycemia patterns: N/AA - Nocturnal hypoglycemia was NOT noted 5) Hyperglycemic episodes 18% with BG > 180, 2% more than 250 - Hyperglycemia patterns: Post dinner . Hypoglycemia -Hypoglycemic episodes: not lately -Frequency and timing of hypoglycemia: when weight loss occurred -Hypoglycemia awareness: yes, feels eyes burning, grainy sensation . Lifestyle -Exercise: walking sometimes , at work walks a lot, no regular exercise -Diet: Breakfast: coffee with cream Lunch: ham sandwich, left overs from fridge, chicken wraps Dinner: pizza, eats outside, fish, vegetables, shrimp, steak, carrots Snacking: sometimes Sods, juices sometimes ROS: SYSTEMIC: Denies fatigue, malaise, energy, Weight has been stable, heat/cold intolerance, polydipsia EYES: Denies blurring of vision, diplopia, pain/discomfort, excessive tearing, swelling of eye lids, bulging, redness, dryness, NECK: Denies goiter, lump, pain/discomfort, dysphagia, hoarseness, sore thorat RESPIRATORY: Denies dyspnea at rest/with exertion, orthopnea cough, pleuritic chest pain, snoring, apnea episodes CARDIOVASCULAR: Chest pain, palpitations, irregular heart beats GASTRO-INTESTINAL:Denies Nausea, vomiting, abdominal pain, hyperdefecation, rectal bleeding NEUROLOGICAL: Denies dizziness, lightheadedness, weakness, cramping, numbness/tingling of extremities MUSCULOSKELETAL: Denies joint pain, stiffness, swelling, cramping or weakness. GENITOURINARY: Denies polyuria, recurrent UTI/yeast infections SKIN: Denies dryness, brittle nails, hair loss, alopecia, excessive sweating, flushing, darkening of skin PSYCHIATRIC: Denies anxiety, depression, panic attacks, irritability, mood swings Past Medical History PAST MEDICAL HISTORY Diagnosis Date Anxiety and depression Arthritis Bilateral leg edema Bladder cancer (HCC) BPH (benign prostatic hyperplasia) Diabetic neuropathy (HCC) DM (diabetes mellitus) (HCC) GERD (gastroesophageal reflux disease) HTN (hypertension) Hx of blood clots 01/2016 Blood clot in lung and behind right knee cardiac arrest due to lack of oxygen Hypertension Intervertebral disc disorder with radiculopa (more content not included)... [facility] 02-05-2024 Telephone encounter Note Called Pt's local pharmacy ([facility]) to see if prior auth was needed for his Dexcom sensors. Received request from [employer] stating '[place] docs needed'. Pharmacist reports that Medicare Part B requires documentation to be faxed to . Most recent OV notes faxed electronically through [employer]. Josette Sim RN February 05, 2024 10:22 AM [facility] 02-05-2024 Miscellaneous Notes Called Pt's local pharmacy ([facility]) to see if prior auth was needed for his Dexcom sensors. Received request from [employer] stating '[place] docs needed'. Pharmacist reports that Medicare Part B requires documentation to be faxed to . Most recent OV notes faxed electronically through [employer]. Josette Sim RN February 05, 2024 10:22 AM documented in this encounter [facility] 01-10-2024 Micah Pena MD - 01/10/2024 11:16 AM EDT Please increase the dose of metformin to 1000 mg BID Continue basaglar 20 units daily at bedtime Take 5 units of insulin regular with each meal, along with sliding scale as below: From 150-180, take 1 unit From 180-210, take 2 units From 210-240, take 3 units From 240-270, take 4 units, From 270-300, take 5 units From 300-330, take 6 units From 330-360, take 7 units Continue Ozempic 1 mg weekly Dexcom prescription will be sent, but till then please check margarette alcocer finger sticks before each meal before taking insulin regular as above. Take insulin ateast 20-30 mins before meal Please do labs before next visit Follow up in 2 months documented in this encounter [facility] 01-10-2024 History of Present illness Narrative Endocrinology and Metabolism [place] [facility] Visit Patient is being evaluated today via a Virtual Visit using a HIPPA compliant platform, zoom via [employer]. It required patient-provider interaction for the medical decision making as documented below. Patient consented to treatment I have communicated my name and active licensure. The patient's identity and physical location were verified at the time of this visit. Either the patient or their legal insurance service representative has been informed of the risks and benefits of -- and alternatives to -- treatment through a remote evaluation and consents to proceed with the evaluation remotely This is a virtual visit using HIPAA compliant video platform. It required patient-provider interaction for the medical decision making as documented below. Provider Location: Non-[facility] Facility Patient Location: Patient Home or Place of Residence Audio quality: had network issues Video quality: had network issues Referred by: Edin Tomlinson PA-C Chief complaint: poorly controlled diabetes mellitus type 2 History of Present Illness: -Initially diagnosed: 5 years ago, he went to hospital for a different problem, his sugars were checked followed by Hba1c and was diagnosed with diabetes PMH: bladder cancer, [place] PCP was managing since diagnosis He was following with Dr. Hartman at [facility], but had issues with insurance paying for the visit Start of insulin: was on insulin 5 years ago, stopped but started recently again due to worsening of diabetes Complications: Cardiovascular -- Yes HTN, cardiac arrest 5 to 6 years ago due to blood clot, on blood thinner xarelto Statin Use -- No, he does not want them due to too many complications Retinopathy -- No Last MASTER/Retina Eval: no retinopathy, macular degeneration, one year ago, octoberSeptember 2022 Nephropathy -- No ENE/ARB Use -- Yes, losartan Polyneuropathy -- no Foot Exam: 09/01/2022 Obesity -- Yes Other -- No -Family history of diabetes mellitus: niece with Type 1 DM Personal history of DKA or HHS-- yes, HHS and then started fast acting insulin Personal history of pancreatitis-- No History of alcohol consumption--occasionally Family history of thyroid cancer-- No Personal history of Urinary tract infections -- None is the recent past . Diabetes Medications -Current regimen: basaglar 20 units daily at bedtime Novolin R regular U100 sliding scale : inject nothing if glucose <150, 151-250 give THREE units, 251 TO 350 give FIVE units, 351-450 give EIGHT units, greater THAN 550 give 10 units - taking only once or twice daily when checking sugars Uses syringes not a pen Per patient's description goes his sensitivity factor is 20 Metformin 850 mg BID Ozempic 0.5 mg weekly in September 2023, changed to 1 mg weekly, but did not start yet -Misses doses: None -Adverse medication effects: denies -Previously Used DM Meds: Yes Trulicity - due to shortage Glimepiride - stopped after starting trulicity . Blood sugars -Self monitoring of blood sugar via fingerstick: 1 to 2 x daily after starting insulin -Brought blood glucose log for review: yes -BG log reviewed: --Fastin-250 --Prelunch: not checking --Predinner: not checking --Bedtime: 150-180s Has never tried sensors . Hypoglycemia -Hypoglycemic episodes: not lately -Frequency and timing of hypoglycemia: when weight loss occurred -Hypoglycemia awareness: yes, feels eyes burning, grainy sensation . Lifestyle -Exercise: walking sometimes , at work walks a lot, no regular exercise -Diet: Breakfast: coffee with cream Lunch: ham sandwich, left overs from fridge, chicken wraps Dinner: pizza, eats outside, fish, vegetables, shrimp, steak, carrots Snacking: sometimes Sods, juices sometimes ROS: SYSTEMIC: Denies fatigue, malaise, energy, Weight has been stable, heat/cold intolerance, polydipsia EYES: Denies blurring of vision, diplopia, pain/discomfort, excessive tearing, swelling of eye lids, bulging, redness, dryness, NECK: Denies goiter, lump, pain/discomfort, dysphagia, hoarseness, sore thorat RESPIRATORY: Denies dyspnea at rest/with exertion, orthopnea cough, pleuritic chest pain, snoring, apnea episodes CARDIOVASCULAR: Chest pain, palpitations, irregular heart beats GASTRO-INTESTINAL:Denies Nausea, vomiting, abdominal pain, hyperdefecation, rectal bleeding NEUROLOGICAL: Denies dizziness, lightheadedness, weakness, cramping, numbness/tingling of extremities MUSCULOSKELETAL: Denies joint pain, stiffness, swelling, cramping or weakness. GENITOURINARY: Denies polyuria, recurrent UTI/yeast infections SKIN: Denies dryness, brittle nails, hair loss, alopecia, excessive sweating, flushing, darkening of skin PSYCHIATRIC: Denies anxiety, depression, panic attacks, irritability, mood swings Past Medical History PAST MEDICAL HISTORY No date: Anxiety and depression No date: Arthritis No date: Bilateral leg edema No date: Bladder cancer (HCC) No date: BPH (benign prostatic hyperplasia) No date: Diabetic neuropathy ([facility]) No date: DM (diabetes mellitus) ([facility]) No date: GERD (gastroesophageal reflux disease) No date: HTN (hypertension) 01/2016: Hx of blood clots Comment: Blood clot in lung and behind right knee cardiac arrest due to lack of oxygen No date: Hypertension No date: Intervertebral disc disorder with radiculopathy of lumbar region No date: Malignant neoplasm of urinary bladder (HCC) No date: Morbidly obese ([facility]) No date: KHALIF (obstructive sleep apnea) Comment: + bipap No date: PE (pulmonary thromboembolism) ([facility]) Comment: with acute cor pulmonale No date: Tricuspid valve regurgitation Past Surgical History PAST SURGICAL HISTORY 11/2018: ANES TRANSURETHRAL RESECTION OF BLADDER TUMOR Comment: Instillation of Mitomycin C in Bladder No date: APPENDECTOMY HX 03/2015: ARTHRP ACETBLR/PROX FEM PROSTC AGRFT/ALGRFT; Right No date: CYSTO W/CALIBRAT &/DILAT Comment: multiple including BCG, TURBT 11/11/2021: CYSTOSCOPY Comment: instillation of Cysview, Transurethral resection of bladder tumr, instillation of gemcitabine 2017: FOOT LEFT OP SURGERY; Left 01/2016: KNEE ARTHROSCOPY/SURGERY; Right 09/2018: LARGE BLADDER TUMORS Comment: Instillation of Mitomycin C 2019: LUMBAR Comment: Lumbar Ablation 02/2022: MEDIUM BLADDER TUMORS Comment: cysview 2014: RIGHT HEART CATHERIZATION Comment: Negative for CAD 2013: TOTAL HIP REPLACEMENT; Right Family History FAMILY HISTORY Problem Relation Age of Onset other (Heart age 67) Mother other (Heart Attack age 64) Father Alzheimer's Disease Paternal Grandmother Diabetes Other Social History Social History Tobacco Use Smoking status: Every Day Packs/day: 1.00 Years: 37.00 Additional pack years: 0.00 Total pack years: 37.00 Types: Cigarettes Passive exposure: Never Smokeless tobacco: Former Types: Chew Quit date: 1988 Tobacco comments: pt has not smoked x 2 days 10/29/21 Vaping Use Vaping Use: Never used Substance Use Topics Alcohol use: Yes Alcohol/week: 2.0 standard drinks of alcohol Types: 2 Cans of Beer (12oz) per week Comment: social Drug use: No Allergies ALLERGIES Allergen Reactions Quinine Hives Morphine Itching IV burning and itching Current Medications Current Outpatient Medications Medication Sig Dispense Refill BD INSULIN SYRINGE 0.5 mL 29 gauge x 1/2 USE ONE syringe as directed NOVOLIN R REGULAR U100 INSULIN 100 unit/mL injection inject nothing if glucose <150, 151-250 give THREE units, 251 TO 350 give FIVE units, 351-450 give EIGHT units, greater THAN 550 give 10 units OZEMPIC 0.25 mg or 0.5 mg (2 mg/3 mL) pen inject 0.25 MG INTO THE SKIN every WEEK tamsulosin (FLOMAX) 0.4 mg Take 1 capsule by mouth daily at bedtime. 90 capsule 3 oxybutynin XL (DITROPAN XL) 5 mg 24 hr tablet Use daily, or as needed for bladder spasms 90 tablet 3 dulaglutide (TRULICITY) 4.5 mg/0.5 mL pen injector Inject subcutaneously one time a week. cyclobenzaprine (FLEXERIL) 10 mg tablet take ONE tablet BY MOUTH UP TO THREE TIMES DAILY, as needed FOR muscle SPASMS diazePAM (VALIUM) 5 mg tablet Take 5 mg by mouth three times a day as needed. (Patient not taking: Reported on 10/04/2023) FLUoxetine (PROZAC) 10 mg capsule Take 1 capsule by mouth once daily. TRULICITY 3 mg/0.5 mL pen injector Inject subcutaneously one time a week. atenolol (TENORMIN) 50 mg tablet Take by mouth twice daily. FLUoxetine HCl 20 mg tablet Take 20 mg by mouth once daily. varenicline (CHANTIX) 1 mg tablet Take 1 tablet by mouth twice daily. (Patient not taking: Reported on 10/04/2023) 60 tablet 3 gabapentin 600 mg Tb24 Take 1 tablet by mouth three times daily with meals. furosemide (LASIX) 40 mg tablet Take 40 mg by mouth once daily. metaxalone (SKELAXIN) 800 mg tablet Take 800 mg by mouth three times daily as needed. (Patient not taking: Reported on 10/04/2023) losartan (COZAAR) 50 mg tablet Take 50 mg by mouth once daily. oxyCODONE-acetaminophen (PERCOCET) 5-325 mg tablet Take 1 tablet by mouth every 6 hours as needed. albuterol HFA (PROVENTIL HFA, VENTOLIN HFA) 90 mcg/actuation inhaler Inhale 2 Puffs as instructed every 4 hours as needed. acetaminophen (TYLENOL) 325 mg tablet Take 650 mg by mouth every 6 hours as needed. XARELTO 20 mg tablet Take 20 mg by mouth once daily. omeprazole (PRILOSEC) 20 mg capsule Take by mouth twice daily. No current facility-administered medications for this visit. Labs Hba1c on 09/12/23 was 9.5% Physical Exam Assessment and Plan Poorly controlled diabetes mellitus type 2 with hx of SC in the past before diagnosis -A1c 9.5% -Current regimen: Novolin R U100 sliding scale above 150 mg/dl, upto 10 units for 550 Basaglar 20 units daily Metformin 750 mg BID Ozempic 1 mg weekly to start, last dose taken was 0.5 mg weekly- tolerating well -Will change regimen to : Increase the dose of metformin to 1000 mg BID Continue basaglar 20 units daily at bedtime Take 5 units of insulin regular with each meal, along with sliding scale as below: From 150-180, take 1 unit From 180-210, take 2 units From 210-240, take 3 units From 240-270, take 4 units, From 270-300, take 5 units From 300-330, take 6 units From 330-360, take 7 units Continue Ozempic 1 mg weekly He might benefit from starting Jardiance but with bladder cancer hx, risk of UTIs exists Dexcom prescription sent, but till then to check bllod sugars wuth finger sticks before each meal before taking insulin regular as above. To take insulin ateast 20-30 mins before meal- explained reason as he thinks this appears senseless because his sugars go up after meals Will check if any rapid acting insulins are available as per insurance- reports a list of medications approved by insurance were possibly sent to his previous provider after which he was started on regular insulin -Lifestyle modifications (diet, exercise) have been discussed with the patient - labs before next visit- hba1c, urine microalbumin, Lipid panel, CMP - encouraged annual eye exam #Obesity Class II with serious comobidity - on ozempic as above - diet and exercise reviewed Scripts sent to pharmacy of pt choice: Yes Follow up in 2 months I have confirmed and edited as necessary, the past medical, surgical, family, and social history as obtained by others. My final recommendations will be communicated back to the requesting provider by way of shared medical record or letter via US mail. Medical Decision Making: Problems: Moderate: 1+ chronic illnesses with change Data: Unique test result(s) reviewed: 3+ Unique test(s) ordered: 3+ Independent interpretation of test from other physician/QHCP Risk: Moderate: Drug management Medical Decision Making Level: 4 - Moderate Micah Reid MD Endocrinology Associate Staff [facility] Endocrinology and Metabolism [place] [phone] documented in this encounter [facility] 01-10-2024 Note HNO ID: [id number] Author: MICAH REID MD Service: ? Author Type: Physician Type: Progress Notes Filed: 01/10/2024 20:21 Note Text: Endocrinology and Metabolism [place] [facility] Visit Patient is being evaluated today via a Virtual Visit using a HIPPA compliant platform, zoom via [employer]. It required patient-provider interaction for the medical decision making as documented below. Patient consented to treatment I have communicated my name and active licensure. The patient's identity and physical location were verified at the time of this visit. Either the patient or their legal insurance service representative has been informed of the risks and benefits of -- and alternatives to -- treatment through a remote evaluation and consents to proceed with the evaluation remotely This is a virtual visit using HIPAA compliant video platform. It required patient-provider interaction for the medical decision making as documented below. Provider Location: [facility] Patient Location: Patient Home or Place of Residence Audio quality: had network issues Video quality: had network issues Referred by: Edin Tomlinson PA-C Chief complaint: poorly controlled diabetes mellitus type 2 History of Present Illness: -Initially diagnosed: 5 years ago, he went to hospital for a different problem, his sugars were checked followed by Hba1c and was diagnosed with diabetes PMH: bladder cancer, [place] PCP was managing since diagnosis He was following with Dr. Hartman at [facility], but had issues with insurance paying for the visit Start of insulin: was on insulin 5 years ago, stopped but started recently again due to worsening of diabetes Complications: Cardiovascular -- Yes HTN, cardiac arrest 5 to 6 years ago due to blood clot, on blood thinner xarelto Statin Use -- No, he does not want them due to too many complications Retinopathy -- No Last MASTER/Retina Eval: no retinopathy, macular degeneration, one year ago, october be September 2022 Nephropathy -- No ENE/ARB Use -- Yes, losartan Polyneuropathy -- no Foot Exam: 09/01/2022 Obesity -- Yes Other -- No -Family history of diabetes mellitus: niece with Type 1 DM Personal history of DKA or HHS-- yes, HHS and then started fast acting insulin Personal history of pancreatitis-- No History of alcohol consumption--occasionally Family history of thyroid cancer-- No Personal history of Urinary tract infections -- None is the recent past . Diabetes Medications -Current regimen: basaglar 20 units daily at bedtime Novolin R regular U100 sliding scale : inject nothing if glucose <150, 151-250 give THREE units, 251 TO 350 give FIVE units, 351-450 give EIGHT units, greater THAN 550 give 10 units - taking only once or twice daily when checking sugars Uses syringes not a pen Per patient's description goes his sensitivity factor is 20 Metformin 850 mg BID Ozempic 0.5 mg weekly in September 2023, changed to 1 mg weekly, but did not start yet -Misses doses: None -Adverse medication effects: denies -Previously Used DM Meds: Yes Trulicity - due to shortage Glimepiride - stopped after starting trulicity . Blood sugars -Self monitoring of blood sugar via fingerstick: 1 to 2 x daily after starting insulin -Brought blood glucose log for review: yes -BG log reviewed: --Fastin-250 --Prelunch: not checking --Predinner: not checking --Bedtime: 150-180s Has never tried sensors . Hypoglycemia -Hypoglycemic episodes: not lately -Frequency and timing of hypoglycemia: when weight loss occurred -Hypoglycemia awareness: yes, feels eyes burning, grainy sensation . Lifestyle -Exercise: walking sometimes , at work walks a lot, no regular exercise -Diet: Breakfast: coffee with cream Lunch: ham sandwich, left overs from fridge, chicken wraps Dinner: pizza, eats outside, fish, vegetables, shrimp, steak, carrots Snacking: sometimes Sods, juices sometimes ROS: SYSTEMIC: Denies fatigue, malaise, energy, Weight has been stable, heat/cold intolerance, polydipsia EYES: Denies blurring of vision, diplopia, pain/discomfort, excessive tearing, swelling of eye lids, bulging, redness, dryness, NECK: Denies goiter, lump, pain/discomfort, dysphagia, hoarseness, sore thorat RESPIRATORY: Denies dyspnea at rest/with exertion, orthopnea cough, pleuritic chest pain, snoring, apnea episodes CARDIOVASCULAR: Chest pain, palpitations, irregular heart beats GASTRO-INTESTINAL:Denies Nausea, vomiting, abdominal pain, hyperdefecation, rectal bleeding NEUROLOGICAL: Denies dizziness, lightheadedness, weakness, cramping, numbness/tingling of extremities MUSCULOSKELETAL: Denies joint pain, stiffness, swelling, cramping or weakness. GENITOURINARY: Denies polyuria, recurrent UTI/yeast infections SKIN: Denies dryness, brittle nails, hair loss, alopecia, excessive sweating, flushing, darkening of skin PSYCHIATRIC: Denies anxiety, depression, p (more content not included)... [facility] 11-07-2023 Note HNO ID: [id number] Author: TIERRA CAAL JR, MD Service: ? Author Type: Physician Type: Progress Notes Filed: 11/07/2023 08:42 Note Text: ESTABLISHED PATIENT OFFICE VISIT HPI Adrian Becerra Fay Bynmu is a 53 year old male who presents sp turbt. Doing well. Path discussed. Benign. No fever. No uti. Feels well otherwise. LAB: Creatinine Date Value Ref Range Status 01/24/2022 0.90 0.73 - 1.22 mg/dL Final No results found for: PSA Glucose, Urine (mg/dL) Date Value 09/05/2017 Negative Bilirubin, Urine (no units) Date Value 09/05/2017 Negative Ketones, Urine (no units) Date Value 09/05/2017 Negative Specific [place], Ur (no units) Date Value 09/05/2017 1.003 Hemoglobin/Blood,Ur ( ) Date Value 09/05/2017 Negative pH, Urine (no units) Date Value 09/05/2017 5.5 Protein, Urine (mg/dL) Date Value 09/05/2017 Negative Nitrites (no units) Date Value 09/05/2017 Negative MEDICATIONS: BD INSULIN SYRINGE 0.5 mL 29 gauge x 1/2 USE ONE syringe as directed NOVOLIN R REGULAR U100 INSULIN 100 unit/mL injection inject nothing if glucose <150, 151-250 give THREE units, 251 TO 350 give FIVE units, 351-450 give EIGHT units, greater THAN 550 give 10 units OZEMPIC 0.25 mg or 0.5 mg (2 mg/3 mL) pen inject 0.25 MG INTO THE SKIN every WEEK tamsulosin (FLOMAX) 0.4 mg Take 1 capsule by mouth daily at bedtime. oxybutynin XL (DITROPAN XL) 5 mg 24 hr tablet Use daily, or as needed for bladder spasms dulaglutide (TRULICITY) 4.5 mg/0.5 mL pen injector Inject subcutaneously one time a week. cyclobenzaprine (FLEXERIL) 10 mg tablet take ONE tablet BY MOUTH UP TO THREE TIMES DAILY, as needed FOR muscle SPASMS diazePAM (VALIUM) 5 mg tablet Take 5 mg by mouth three times a day as needed. (Patient not taking: Reported on 10/04/2023) FLUoxetine (PROZAC) 10 mg capsule Take 1 capsule by mouth once daily. TRULICITY 3 mg/0.5 mL pen injector Inject subcutaneously one time a week. atenolol (TENORMIN) 50 mg tablet Take by mouth twice daily. FLUoxetine HCl 20 mg tablet Take 20 mg by mouth once daily. varenicline (CHANTIX) 1 mg tablet Take 1 tablet by mouth twice daily. (Patient not taking: Reported on 10/04/2023) gabapentin 600 mg Tb24 Take 1 tablet by mouth three times daily with meals. furosemide (LASIX) 40 mg tablet Take 40 mg by mouth once daily. metaxalone (SKELAXIN) 800 mg tablet Take 800 mg by mouth three times daily as needed. (Patient not taking: Reported on 10/04/2023) losartan (COZAAR) 50 mg tablet Take 50 mg by mouth once daily. oxyCODONE-acetaminophen (PERCOCET) 5-325 mg tablet Take 1 tablet by mouth every 6 hours as needed. albuterol HFA (PROVENTIL HFA, VENTOLIN HFA) 90 mcg/actuation inhaler Inhale 2 Puffs as instructed every 4 hours as needed. acetaminophen (TYLENOL) 325 mg tablet Take 650 mg by mouth every 6 hours as needed. XARELTO 20 mg tablet Take 20 mg by mouth once daily. omeprazole (PRILOSEC) 20 mg capsule Take by mouth twice daily. REVIEW OF SYSTEMS Review of Systems Constitutional: Negative. Respiratory: Negative. Cardiovascular: Negative. Gastrointestinal: Negative. Genitourinary: Negative. Skin: Negative. Neurological: Negative. Psychiatric/Behavioral: Negative. HISTORIES PAST MEDICAL HISTORY Diagnosis Date Anxiety and depression Arthritis Bilateral leg edema Bladder cancer (HCC) BPH (benign prostatic hyperplasia) Diabetic neuropathy (HCC) DM (diabetes mellitus) (HCC) GERD (gastroesophageal reflux disease) HTN (hypertension) Hx of blood clots 01/2016 Blood clot in lung and behind right knee cardiac arrest due to lack of oxygen Hypertension Intervertebral disc disorder with radiculopathy of lumbar region Malignant neoplasm of urinary bladder (HCC) Morbidly obese (HCC) KHALIF (obstructive sleep apnea) + bipap PE (pulmonary thromboembolism) (HCC) with acute cor pulmonale Tricuspid valve regurgitation FAMILY HISTORY Problem Relation Age of Onset other (Heart age 67) Mother other (Heart Attack age 64) Father Alzheimer's Disease Paternal Grandmother Diabetes Other SOCIAL HISTORY Social History Tobacco Use Smoking status: Every Day Packs/day: 1.00 Years: 37.00 Additional pack years: 0.00 Total pack years: 37.00 Types: Cigarettes Passive exposure: Never Smokeless tobacco: Former Types: Chew Quit date: 1988 Tobacco comments: pt has not smoked x 2 days 10/29/21 Vaping Use Vaping Use: Never used Substance Use Topics Alcohol use: Yes Alcohol/week: 2.0 standard drinks of alcohol Types: 2 Cans of Beer (12oz) per week Comment: social Drug use: No PHYSICAL EXAMINATION General appearance: Well appearing, alert, in no acute distress, and well-hydrated, well nourished Skin: Skin color, texture, turgor normal, no suspicious rashes or lesions Respiratory:+ effort Cardiovascular: Not examined GI: Normal abdominal exam, Abdomen soft, non-tender. No masses, organomegaly M (more content not included)... [facility] 11-07-2023 History of Present illness Narrative ESTABLISHED PATIENT OFFICE VISIT HPI Adrian Aponte Jr. is a 53 year old male who presents sp turbt. Doing well. Path discussed. Benign. No fever. No uti. Feels well otherwise. LAB: Creatinine Date Value Ref Range Status 01/24/2022 0.90 0.73 - 1.22 mg/dL Final No results found for: PSA Glucose, Urine (mg/dL) Date Value 09/05/2017 Negative Bilirubin, Urine (no units) Date Value 09/05/2017 Negative Ketones, Urine (no units) Date Value 09/05/2017 Negative Specific [place], Ur (no units) Date Value 09/05/2017 1.003 Hemoglobin/Blood,Ur ( ) Date Value 09/05/2017 Negative pH, Urine (no units) Date Value 09/05/2017 5.5 Protein, Urine (mg/dL) Date Value 09/05/2017 Negative Nitrites (no units) Date Value 09/05/2017 Negative MEDICATIONS: BD INSULIN SYRINGE 0.5 mL 29 gauge x 1/2 USE ONE syringe as directed NOVOLIN R REGULAR U100 INSULIN 100 unit/mL injection inject nothing if glucose <150, 151-250 give THREE units, 251 TO 350 give FIVE units, 351-450 give EIGHT units, greater THAN 550 give 10 units OZEMPIC 0.25 mg or 0.5 mg (2 mg/3 mL) pen inject 0.25 MG INTO THE SKIN every WEEK tamsulosin (FLOMAX) 0.4 mg Take 1 capsule by mouth daily at bedtime. oxybutynin XL (DITROPAN XL) 5 mg 24 hr tablet Use daily, or as needed for bladder spasms dulaglutide (TRULICITY) 4.5 mg/0.5 mL pen injector Inject subcutaneously one time a week. cyclobenzaprine (FLEXERIL) 10 mg tablet take ONE tablet BY MOUTH UP TO THREE TIMES DAILY, as needed FOR muscle SPASMS diazePAM (VALIUM) 5 mg tablet Take 5 mg by mouth three times a day as needed. (Patient not taking: Reported on 10/04/2023) FLUoxetine (PROZAC) 10 mg capsule Take 1 capsule by mouth once daily. TRULICITY 3 mg/0.5 mL pen injector Inject subcutaneously one time a week. atenolol (TENORMIN) 50 mg tablet Take by mouth twice daily. FLUoxetine HCl 20 mg tablet Take 20 mg by mouth once daily. varenicline (CHANTIX) 1 mg tablet Take 1 tablet by mouth twice daily. (Patient not taking: Reported on 10/04/2023) gabapentin 600 mg Tb24 Take 1 tablet by mouth three times daily with meals. furosemide (LASIX) 40 mg tablet Take 40 mg by mouth once daily. metaxalone (SKELAXIN) 800 mg tablet Take 800 mg by mouth three times daily as needed. (Patient not taking: Reported on 10/04/2023) losartan (COZAAR) 50 mg tablet Take 50 mg by mouth once daily. oxyCODONE-acetaminophen (PERCOCET) 5-325 mg tablet Take 1 tablet by mouth every 6 hours as needed. albuterol HFA (PROVENTIL HFA, VENTOLIN HFA) 90 mcg/actuation inhaler Inhale 2 Puffs as instructed every 4 hours as needed. acetaminophen (TYLENOL) 325 mg tablet Take 650 mg by mouth every 6 hours as needed. XARELTO 20 mg tablet Take 20 mg by mouth once daily. omeprazole (PRILOSEC) 20 mg capsule Take by mouth twice daily. REVIEW OF SYSTEMS Review of Systems Constitutional: Negative. Respiratory: Negative. Cardiovascular: Negative. Gastrointestinal: Negative. Genitourinary: Negative. Skin: Negative. Neurological: Negative. Psychiatric/Behavioral: Negative. HISTORIES PAST MEDICAL HISTORY Diagnosis Date Anxiety and depression Arthritis Bilateral leg edema Bladder cancer (HCC) BPH (benign prostatic hyperplasia) Diabetic neuropathy (HCC) DM (diabetes mellitus) (HCC) GERD (gastroesophageal reflux disease) HTN (hypertension) Hx of blood clots 01/2016 Blood clot in lung and behind right knee cardiac arrest due to lack of oxygen Hypertension Intervertebral disc disorder with radiculopathy of lumbar region Malignant neoplasm of urinary bladder (HCC) Morbidly obese (HCC) KHALIF (obstructive sleep apnea) + bipap PE (pulmonary thromboembolism) (HCC) with acute cor pulmonale Tricuspid valve regurgitation FAMILY HISTORY Problem Relation Age of Onset other (Heart age 67) Mother other (Heart Attack age 64) Father Alzheimer's Disease Paternal Grandmother Diabetes Other SOCIAL HISTORY Social History Tobacco Use Smoking status: Every Day Packs/day: 1.00 Years: 37.00 Additional pack years: 0.00 Total pack years: 37.00 Types: Cigarettes Passive exposure: Never Smokeless tobacco: Former Types: Chew Quit date: 1988 Tobacco comments: pt has not smoked x 2 days 10/29/21 Vaping Use Vaping Use: Never used Substance Use Topics Alcohol use: Yes Alcohol/week: 2.0 standard drinks of alcohol Types: 2 Cans of Beer (12oz) per week Comment: social Drug use: No PHYSICAL EXAMINATION General appearance: Well appearing, alert, in no acute distress, and well-hydrated, well nourished Skin: Skin color, texture, turgor normal, no suspicious rashes or lesions Respiratory:+ effort Cardiovascular: Not examined GI: Normal abdominal exam, Abdomen soft, non-tender. No masses, organomegaly Musculoskeletal: Negative Neuro: Negative Genitourinary: not examined Impression: (C67.9) Malignant neoplasm of urinary bladder, unspecified site (HCC) (primary encounter diagnosis) Plan: 6 months cysto Tierra Caal Jr, MD 11/07/2023 documented in this encounter [facility] 10-18-2023 Note HNO ID: [id number] Author: ASIA DIAZ APRN.BAKER SECOND Service: Nursing Author Type: Nurse Group Billing Coordinator Type: Anesthesia Procedure Notes Filed: 10/18/2023 08:51 Note Text: ANESTHESIOLOGY PROCEDURE NOTE Airway General Information Procedure Start Time/Medication Administration: 10/18/2023 8:41 AM Procedure End Time: 10/18/2023 8:41 AM Patient location during procedure: OR Timeout Performed Pre-procedure: timeout performed Consent Obtained: Yes Patient identity confirmed: arm band Staffing BAKER SECOND: Asia Diaz APRN.[employer] Performed by: LEA Indications and Patient Condition Indications for airway management: anesthesia Preoxygenated: yes anesthesia circuit Patient position: sniffing and ramp Method: asleep Cricoid Pressure: No Manual In-Line Stabilization: No Difficult Mask: No Final Airway Details Final airway type: supraglottic airway Number of attempts at approach: 1 Final Supraglottic Airway: i-gel Size 5 Seal Adequate: yes SIGNATURE: Asia Diaz APRN.CRNA PATIENT NAME: Adrian Aponte Jr. DATE: October 18, 2023 TIME: 8:51 AM CSN: [id number] [facility] 10-18-2023 Telephone encounter Note Called patient and left vox Patient is scheduled as follows: November 07, 2023 at 8:30am, shah location--ok'd by zackery barroso [facility] 10-18-2023 Miscellaneous Notes Called patient and left vox Patient is scheduled as follows: November 07, 2023 at 8:30am, shah location--ok'd by zackery barroso [facility] or 10/18/23 Fu with me 2-3 weeks documented in this encounter [facility] 10-18-2023 Telephone encounter Note [facility] or 10/18/23 Fu with me 2-3 weeks [facility] 10-18-2023 Surgery Surgical operation note BRIEF OPERATIVE / PROCEDURE NOTE LOG ID: * No surgery found * Surgery/Procedure Date: * No surgery found * Incision/Procedure Start Time: Incision Close/Procedure End Time: Surgeon(s)/Proceduralist(s) and [employer] Officer(s): * Surgery not found * * Surgery not found * Procedure(s): cystoscopy, turbt (small - 1cm), instill gemcitabine Anesthesia: * No surgery found * Findings: as dx suggests Estimated Blood Loss: 0 ml Specimens: None Complications: None Pre-Op/Pre-Procedure Diagnosis: bladder mass Post-Op/Post-Procedure Diagnosis: * No surgery found * same SIGNATURE: Tierra Caal Jr, MD PATIENT NAME: @patient name@ DATE: October 18, 2023 TIME: @FNOW@ PAGER/CONTACT #: [phone] [facility] 10-18-2023 Surgical operation note BRIEF OPERATIVE / PROCEDURE NOTE LOG ID: * No surgery found * Surgery/Procedure Date: * No surgery found * Incision/Procedure Start Time: Incision Close/Procedure End Time: Surgeon(s)/Proceduralist(s) and [employer] Officer(s): * Surgery not found * * Surgery not found * Procedure(s): cystoscopy, turbt (small - 1cm), instill gemcitabine Anesthesia: * No surgery found * Findings: as dx suggests Estimated Blood Loss: 0 ml Specimens: None Complications: None Pre-Op/Pre-Procedure Diagnosis: bladder mass Post-Op/Post-Procedure Diagnosis: * No surgery found * same SIGNATURE: Tierra Caal Jr, MD PATIENT NAME: @patient name@ DATE: October 18, 2023 TIME: @FN@ PAGER/CONTACT #: [phone] documented in this encounter [facility] 10-18-2023 Attending History and physical note UPDATED HISTORY AND PHYSICAL EXAMINATION SERVICE DATE: 10/18/2023 SERVICE TIME: 8:24 AM PHYSICAL EXAM MUST BE COMPLETED ON ADMISSION The History and Physical (completed in the past 30 days) has been reviewed and the patient has been examined. The contents accurately reflect the patient's condition with the following additions or revisions since the H&P was completed. Heart rrr Lungs ctab Examination indicates no changes. This H&P can be found in the Electronic Medical Record dated 10/04/23. SIGNATURE: Tierra Caal Jr, MD PATIENT NAME: Adrian Aponte Jr. DATE: October 18, 2023 TIME: 8:24 AM PAGER: [phone] Source Note - Elvis AngelitoAJAY - 10/04/2023 2:46 PM EDT HISTORY AND PHYSICAL EXAMINATION SERVICE DATE: 10/04/2023 SERVICE TIME: 3:48 PM PRIMARY CARE PHYSICIAN: Edin Tomlinson PA-C Assessment Patient has the following medical conditions which may affect caroline-operative course: Pre-op examination Medical conditions which may affect the perioperative course were address in today's visit. 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 On Xarelto - instructed to follow surgeon instructions how to take before the surgery Follows by Pulmonology every year Hypertension Controlled on Losartan and lasix- instructed to hold the dos Atenolol - instructed to take the dos Gastro-esophageal reflux disease without esophagitis Controlled on PPI Sleep apnea Compliant with BiPAP Follows by Pulmonology 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 Clinical Frailty Scale: 3. Well, with treated comorbid disease ARISCAT Score: Age: 51-80 Preoperative SpO2: >=96% Respiratory infection in the last month: No Preoperative anemia: No Surgical incision: peripheral Duration of surgery: <2 hrs Emergency procedure: No ARISCAT Score: 3 ANESTHESIA FINDINGS: Intubation History: No history of difficult intubation. No abnormal airway history Significant Anesthesia Considerations: none Airway History: No history of difficult airway No abnormal airway history I - PHYSICAL EVALUATION AIRWAY Patient intubated: No. DENTAL Dental findings: teeth intact and missing tooth/teeth. II - ANESTHESIA PLAN Anesthetic Plan: general Beta Dylan Monitoring Plan Post Procedure Analgesic Plan Prepared for Surgery: CONSULTS: Patient does not require consults for optimization at this time Planned Anesthetic: general The Following Tests/Procedures Have Been Initiated: No orders of the defined types were placed in this encounter. REASON FOR VISIT: Adrian Aponte Jr. is a 52 year old male who is scheduled for Procedure(s): CYSTOURETHROSCOPY W/FULGURATION &/OR RESECTION MEDIUM BLADDER TUMOR(S) 2.0 - 5.0 CM W/SALINE BIPOLAR (N/A) INSTILL ANTICARCINOGENIC AGENT IN BLADDER, GEMCITABINE (N/A) at the request of Dr. Tierra Caal Jr. for routine H&P. My final recommendation will be communicated back to the requesting physician by way of shared medical record or letter. 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 Pulmonary Embolism (Hcc) Tobacco Dependence in Remission Tricuspid Valve Regurgitation Type 2 Diabetes Mellitus (Hcc) Bilateral Leg Edema Morbidly Obese (Hcc) Malignant Neoplasm of Lateral Wall of Bladder (Hcc) Diabetic Neuropathy (Hcc) Obesity, Class III, BMI >= 40 Pre-Op Examination COVID-19 Immunization Status Overdue - Covid-19 Vaccine (3 - Pfizer risk series) Overdue since 02/24/2021 01/27/2021 Imm Admin: COVID-19 original vaccine, age 12+ yr, monovalent (PFIZER-BIONTECH - PURPLE TOP) 01/06/2021 Imm Admin: COVID-19 original vaccine, age 12+ yr, monovalent (PFIZER-BIONTECH - PURPLE TOP) CHIEF COMPLAINT: The reason for this visit is to perform a comprehensive review of the patient's past medical history, assess their current health status and obtain any additional testing required based on anesthesia guidelines. We will also identify any potential anesthesia problems or contraindications to the planned procedure. HPI: Patient is a 52 year old male who presents for pre surgical testing. Patient reports bladder cancer, reports hematuria for 3 years with large blood clots. Reports having cancer removed; monitoring with cytoscopies. Had bladder coyle scraped in the past. Denies hematuria today, reports urgency and frequency After discussing with surgeon, patient agrees to surgical intervention. Risk and benefits discussed by surgeon. Patient denies any other problems or concerns at this time. REVIEW OF SYSTEMS: General: Negative for: fever. Neurological: Negative for: delirium, dementia, seizures, TIA and strokes. Respiratory: Positive for: COPD, obstructive sleep apnea and CPAP/BiPAP compliant. Negative for: asthma, pneumonia within 6 weeks and URI < 2 weeks. Cardiovascular: Positive for: DVT/PE, hyperlipidemia, hypertension and murmur/valvular heart disease ((+ tricuspid valve regurgitation)) Negative for: atrial fibrillation, CAD, chest pain and recent SC. GI: Positive for: GERD Negative for: abdominal pain, dysphagia, hepatitis, liver disease, nausea, vomiting and ETOH >2 drinks/day. : See HPI. Endocrine: Positive for: diabetes mellitus. Negative for: hypothyroidism. Hematology: Negative for: anemia, factor V Leiden, hemophilia and von Willebrand disease. Oncology: No history of CA metastasis, chemo within 30 days, or radiotherapy within 90 days. No history of oncological symptoms or problems. Psych: Positive for: anxiety and depression. Musculoskeletal: Negative for joint pain or swelling, back pain or muscle pain. Skin: Negative for lesions, rash and itching. PAST MEDICAL HISTORY Diagnosis Date Anxiety and depression Arthritis Bilateral leg edema Bladder cancer (HCC) BPH (benign prostatic hyperplasia) Diabetic neuropathy (HCC) DM (diabetes mellitus) (HCC) GERD (gastroesophageal reflux disease) HTN (hypertension) Hx of blood clots 01/2016 Blood clot in lung and behind right knee cardiac arrest due to lack of oxygen Hypertension Intervertebral disc disorder with radiculopathy of lumbar region Malignant neoplasm of urinary bladder (HCC) Morbidly obese (HCC) KHALIF (obstructive sleep apnea) + bipap PE (pulmonary thromboembolism) (HCC) with acute cor pulmonale Tricuspid valve regurgitation PAST SURGICAL HISTORY Procedure Laterality Date ANES TRANSURETHRAL RESECTION OF BLADDER TUMOR 11/2018 Instillation of Mitomycin C in Bladder APPENDECTOMY HX ARTHRP ACETBLR/PROX FEM PROSTC AGRFT/ALGRFT Right 03/2015 CYSTO W/CALIBRAT &/DILAT multiple including BCG, TURBT CYSTOSCOPY 11/11/2021 instillation of Cysview, Transurethral resection of bladder tumr, instillation of gemcitabine FOOT LEFT OP SURGERY Left 2017 KNEE ARTHROSCOPY/SURGERY Right 01/2016 LARGE BLADDER TUMORS 09/2018 Instillation of Mitomycin C LUMBAR 2019 Lumbar Ablation MEDIUM BLADDER TUMORS 02/2022 cysview RIGHT HEART CATHERIZATION 2015 Negative for CAD TOTAL HIP REPLACEMENT Right 2013 FAMILY HISTORY Problem Relation Age of Onset other (Heart age 67) Mother other (Heart Attack age 64) Father Alzheimer's Disease Paternal Grandmother Diabetes Other Social History Tobacco Use Smoking status: Every Day Packs/day: 1.00 Years: 37.00 Additional pack years: 0.00 Total pack years: 37.00 Types: Cigarettes Passive exposure: Never Smokeless tobacco: Former Types: Chew Quit date: 1988 Tobacco comments: pt has not smoked x 2 days 10/29/21 Vaping Use Vaping Use: Never used Substance Use Topics Alcohol use: Yes Alcohol/week: 2.0 standard drinks of alcohol Types: 2 Cans of Beer (12oz) per week Comment: weekly Drug use: No Prior to Admission medications as of 10/04/23 1501 Medication Sig Last Dose Taking dulaglutide (TRULICITY) 4.5 mg/0.5 mL pen injector Inject subcutaneously one time a week. Taking Yes cyclobenzaprine (FLEXERIL) 10 mg tablet take ONE tablet BY MOUTH UP TO THREE TIMES DAILY, as needed FOR muscle SPASMS Taking Yes FLUoxetine (PROZAC) 10 mg capsule Take 1 capsule by mouth once daily. Taking Yes oxybutynin XL (DITROPAN XL) 5 mg 24 hr tablet Use daily, or as needed for bladder spasms Taking Yes tamsulosin (FLOMAX) 0.4 mg Take 1 capsule by mouth daily at bedtime. Taking Yes atenolol (TENORMIN) 50 mg tablet Take by mouth twice daily. Taking Yes FLUoxetine HCl 20 mg tablet Take 20 mg by mouth once daily. Taking Yes gabapentin 600 mg Tb24 Take 1 tablet by mouth three times daily with meals. Taking Yes furosemide (LASIX) 40 mg tablet Take 40 mg by mouth once daily. Taking Yes losartan (COZAAR) 50 mg tablet Take 50 mg by mouth once daily. Taking Yes oxyCODONE-acetaminophen (PERCOCET) 5-325 mg tablet Take 1 tablet by mouth every 6 hours as needed. Taking Yes albuterol HFA (PROVENTIL HFA, VENTOLIN HFA) 90 mcg/actuation inhaler Inhale 2 Puffs as instructed every 4 hours as needed. Taking Yes acetaminophen (TYLENOL) 325 mg tablet Take 650 mg by mouth every 6 hours as needed. Taking Yes XARELTO 20 mg tablet Take 20 mg by mouth once daily. Taking Yes omeprazole (PRILOSEC) 20 mg capsule Take by mouth twice daily. Taking Yes diazePAM (VALIUM) 5 mg tablet Take 5 mg by mouth three times a day as needed. Patient not taking: Reported on 10/04/2023 Not Taking TRULICITY 3 mg/0.5 mL pen injector Inject subcutaneously one time a week. varenicline (CHANTIX) 1 mg tablet Take 1 tablet by mouth twice daily. Patient not taking: Reported on 10/04/2023 Not Taking metaxalone (SKELAXIN) 800 mg tablet Take 800 mg by mouth three times daily as needed. Patient not taking: Reported on 10/04/2023 Not Taking No medication comments found. ALLERGIES Allergen Reactions Quinine Hives Morphine Itching IV burning and itching Objective PHYSICAL EXAM: General: alert and oriented and healthy appearance. Pertinent negatives noted - not distressed. Skin: normal color, no rash or lesions. HEENT: No additional findings for patient's neck. Cardiovascular: regular rate and rhythm, normal S1 and S2, no rub, murmurs, or gallop. Respiratory: normal breath sounds, no wheezes or crackles. No chest wall deformity or tenderness. Abdomen: bowel sounds present and soft. Pertinent negatives noted - not tender. Extremities: no deformity, no edema or tenderness, no joint swelling or clubbing. Neurological: normal cognition and motor skills. Gait normal. No weakness or sensory deficit. PAIN ASSESSMENT: VITALS: BP 112/78 Pulse 88 Temp 97.9 Resp 17 Ht 5' 11 (1.80m) Wt 392 lb (177.8kg) SpO2 97% BMI 54.70 kg/(m^2). Diagnostic tests reviewed for today's visit: Lab Value Units Date High Low HB No results within date range. HCT No results within date range. WBC No results within date range. PLT No results within date range. NA No results within date range. K No results within date range. GLUC No results within date range. BUN No results within date range. CREAT No results within date range. PTSEC No results within date range. INR No results within date range. APTT No results within date range. ALT No results within date range. AST No results within date range. TBILI No results within date range. TSH No results within date range. Lab Value Units Date High Low HCGQT No results within date range. UHCG No results within date range. HCG, BODY* No results within date range. Lab Value Units Date High Low ABORHD No results within date range. ABSCREEN No results within date range. No results found for: HBA1C No results found for this or any previous visit (from the past 8760 hour(s)). No results found for this or any previous visit (from the past 26928 hour(s)). Implantable Devices: right total hip, left foot hardware, right knee hard swanson, On Xarelto - instructed to follow surgeon instructions on blood thinners before the surgery The Following Tests/Procedures Have Been Initiated: UC ordered per surgeon in [facility] Assessment/Plan Diagnosis: Bladder mass [N32.89] PLAN Planned Procedure: Procedure(s): CYSTOURETHROSCOPY W/FULGURATION &/OR RESECTION MEDIUM BLADDER TUMOR(S) 2.0 - 5.0 CM W/SALINE BIPOLAR (N/A) INSTILL ANTICARCINOGENIC AGENT IN BLADDER, GEMCITABINE (N/A) Instructions Given to Patient: Instructions located in the after visit summary. Patient given verbal and written preop instructions and voices comprehension and compliance. I spent a total of 40 minutes on the date of the service which included preparing to see the patient, [id number] patient care, completing clinical documentation, obtaining and/or reviewing separately obtained history, performing a medically appropriate examination, and counseling and educating the patient/family/caregiver. SIGNATURE: Angelito Hampton APRN.CNP PATIENT NAME: Adrian Aponte Jr. DATE: October 04, 2023 TIME: 2:46 PM PAGER/CONTACT #: [facility] 10-18-2023 History and physical note UPDATED HISTORY AND PHYSICAL EXAMINATION SERVICE DATE: 10/18/2023 SERVICE TIME: 8:24 AM PHYSICAL EXAM MUST BE COMPLETED ON ADMISSION The History and Physical (completed in the past 30 days) has been reviewed and the patient has been examined. The contents accurately reflect the patient's condition with the following additions or revisions since the H&P was completed. Heart rrr Lungs ctab Examination indicates no changes. This H&P can be found in the Electronic Medical Record dated 10/04/23. SIGNATURE: Tierra Caal Jr, MD PATIENT NAME: Adrian Aponte Jr. DATE: October 18, 2023 TIME: 8:24 AM PAGER: [phone] Source Note - Angelito Hampton APRN.[employer] - 10/04/2023 2:46 PM EDT HISTORY AND PHYSICAL EXAMINATION SERVICE DATE: 10/04/2023 SERVICE TIME: 3:48 PM PRIMARY CARE PHYSICIAN: Edin Tomlinson PA-C Assessment Patient has the following medical conditions which may affect caroline-operative course: Pre-op examination Medical conditions which may affect the perioperative course were address in today's visit. 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 On Xarelto - instructed to follow surgeon instructions how to take before the surgery Follows by Pulmonology every year Hypertension Controlled on Losartan and lasix- instructed to hold the dos Atenolol - instructed to take the dos Gastro-esophageal reflux disease without esophagitis Controlled on PPI Sleep apnea Compliant with BiPAP Follows by Pulmonology 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 Clinical Frailty Scale: 3. Well, with treated comorbid disease ARISCAT Score: Age: 51-80 Preoperative SpO2: >=96% Respiratory infection in the last month: No Preoperative anemia: No Surgical incision: peripheral Duration of surgery: <2 hrs Emergency procedure: No ARISCAT Score: 3 ANESTHESIA FINDINGS: Intubation History: No history of difficult intubation. No abnormal airway history Significant Anesthesia Considerations: none Airway History: No history of difficult airway No abnormal airway history I - PHYSICAL EVALUATION AIRWAY Patient intubated: No. DENTAL Dental findings: teeth intact and missing tooth/teeth. II - ANESTHESIA PLAN Anesthetic Plan: general Beta Dylan Monitoring Plan Post Procedure Analgesic Plan Prepared for Surgery: CONSULTS: Patient does not require consults for optimization at this time Planned Anesthetic: general The Following Tests/Procedures Have Been Initiated: No orders of the defined types were placed in this encounter. REASON FOR VISIT: Adrian Aponte Jr. is a 52 year old male who is scheduled for Procedure(s): CYSTOURETHROSCOPY W/FULGURATION &/OR RESECTION MEDIUM BLADDER TUMOR(S) 2.0 - 5.0 CM W/SALINE BIPOLAR (N/A) INSTILL ANTICARCINOGENIC AGENT IN BLADDER, GEMCITABINE (N/A) at the request of Dr. Tierra Caal Jr. for routine H&P. My final recommendation will be communicated back to the requesting physician by way of shared medical record or letter. 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 Pulmonary Embolism (Hcc) Tobacco Dependence in Remission Tricuspid Valve Regurgitation Type 2 Diabetes Mellitus (Hcc) Bilateral Leg Edema Morbidly Obese (Hcc) Malignant Neoplasm of Lateral Wall of Bladder (Hcc) Diabetic Neuropathy (Hcc) Obesity, Class III, BMI >= 40 Pre-Op Examination COVID-19 Immunization Status Overdue - Covid-19 Vaccine (3 - Pfizer risk series) Overdue since 02/24/2021 01/27/2021 Imm Admin: COVID-19 original vaccine, age 12+ yr, monovalent (PFIZER-BIONTECH - PURPLE TOP) 01/06/2021 Imm Admin: COVID-19 original vaccine, age 12+ yr, monovalent (PFIZER-BIONTECH - PURPLE TOP) CHIEF COMPLAINT: The reason for this visit is to perform a comprehensive review of the patient's past medical history, assess their current health status and obtain any additional testing required based on anesthesia guidelines. We will also identify any potential anesthesia problems or contraindications to the planned procedure. HPI: Patient is a 52 year old male who presents for pre surgical testing. Patient reports bladder cancer, reports hematuria for 3 years with large blood clots. Reports having cancer removed; monitoring with cytoscopies. Had bladder coyle scraped in the past. Denies hematuria today, reports urgency and frequency After discussing with surgeon, patient agrees to surgical intervention. Risk and benefits discussed by surgeon. Patient denies any other problems or concerns at this time. REVIEW OF SYSTEMS: General: Negative for: fever. Neurological: Negative for: delirium, dementia, seizures, TIA and strokes. Respiratory: Positive for: COPD, obstructive sleep apnea and CPAP/BiPAP compliant. Negative for: asthma, pneumonia within 6 weeks and URI < 2 weeks. Cardiovascular: Positive for: DVT/PE, hyperlipidemia, hypertension and murmur/valvular heart disease ((+ tricuspid valve regurgitation)) Negative for: atrial fibrillation, CAD, chest pain and recent SC. GI: Positive for: GERD Negative for: abdominal pain, dysphagia, hepatitis, liver disease, nausea, vomiting and ETOH >2 drinks/day. : See HPI. Endocrine: Positive for: diabetes mellitus. Negative for: hypothyroidism. Hematology: Negative for: anemia, factor V Leiden, hemophilia and von Willebrand disease. Oncology: No history of CA metastasis, chemo within 30 days, or radiotherapy within 90 days. No history of oncological symptoms or problems. Psych: Positive for: anxiety and depression. Musculoskeletal: Negative for joint pain or swelling, back pain or muscle pain. Skin: Negative for lesions, rash and itching. PAST MEDICAL HISTORY Diagnosis Date Anxiety and depression Arthritis Bilateral leg edema Bladder cancer (HCC) BPH (benign prostatic hyperplasia) Diabetic neuropathy (HCC) DM (diabetes mellitus) (HCC) GERD (gastroesophageal reflux disease) HTN (hypertension) Hx of blood clots 01/2016 Blood clot in lung and behind right knee cardiac arrest due to lack of oxygen Hypertension Intervertebral disc disorder with radiculopathy of lumbar region Malignant neoplasm of urinary bladder (HCC) Morbidly obese (HCC) KHALIF (obstructive sleep apnea) + bipap PE (pulmonary thromboembolism) (HCC) with acute cor pulmonale Tricuspid valve regurgitation PAST SURGICAL HISTORY Procedure Laterality Date ANES TRANSURETHRAL RESECTION OF BLADDER TUMOR 11/2018 Instillation of Mitomycin C in Bladder APPENDECTOMY HX ARTHRP ACETBLR/PROX FEM PROSTC AGRFT/ALGRFT Right 03/2015 CYSTO W/CALIBRAT &/DILAT multiple including BCG, TURBT CYSTOSCOPY 11/11/2021 instillation of Cysview, Transurethral resection of bladder tumr, instillation of gemcitabine FOOT LEFT OP SURGERY Left 2017 KNEE ARTHROSCOPY/SURGERY Right 01/2016 LARGE BLADDER TUMORS 09/2018 Instillation of Mitomycin C LUMBAR 2019 Lumbar Ablation MEDIUM BLADDER TUMORS 02/2022 cysview RIGHT HEART CATHERIZATION 2014 Negative for CAD TOTAL HIP REPLACEMENT Right 2012 FAMILY HISTORY Problem Relation Age of Onset other (Heart age 67) Mother other (Heart Attack age 64) Father Alzheimer's Disease Paternal Grandmother Diabetes Other Social History Tobacco Use Smoking status: Every Day Packs/day: 1.00 Years: 37.00 Additional pack years: 0.00 Total pack years: 37.00 Types: Cigarettes Passive exposure: Never Smokeless tobacco: Former Types: Chew Quit date: 1988 Tobacco comments: pt has not smoked x 2 days 10/29/21 Vaping Use Vaping Use: Never used Substance Use Topics Alcohol use: Yes Alcohol/week: 2.0 standard drinks of alcohol Types: 2 Cans of Beer (12oz) per week Comment: weekly Drug use: No Prior to Admission medications as of 10/04/23 1501 Medication Sig Last Dose Taking dulaglutide (TRULICITY) 4.5 mg/0.5 mL pen injector Inject subcutaneously one time a week. Taking Yes cyclobenzaprine (FLEXERIL) 10 mg tablet take ONE tablet BY MOUTH UP TO THREE TIMES DAILY, as needed FOR muscle SPASMS Taking Yes FLUoxetine (PROZAC) 10 mg capsule Take 1 capsule by mouth once daily. Taking Yes oxybutynin XL (DITROPAN XL) 5 mg 24 hr tablet Use daily, or as needed for bladder spasms Taking Yes tamsulosin (FLOMAX) 0.4 mg Take 1 capsule by mouth daily at bedtime. Taking Yes atenolol (TENORMIN) 50 mg tablet Take by mouth twice daily. Taking Yes FLUoxetine HCl 20 mg tablet Take 20 mg by mouth once daily. Taking Yes gabapentin 600 mg Tb24 Take 1 tablet by mouth three times daily with meals. Taking Yes furosemide (LASIX) 40 mg tablet Take 40 mg by mouth once daily. Taking Yes losartan (COZAAR) 50 mg tablet Take 50 mg by mouth once daily. Taking Yes oxyCODONE-acetaminophen (PERCOCET) 5-325 mg tablet Take 1 tablet by mouth every 6 hours as needed. Taking Yes albuterol HFA (PROVENTIL HFA, VENTOLIN HFA) 90 mcg/actuation inhaler Inhale 2 Puffs as instructed every 4 hours as needed. Taking Yes acetaminophen (TYLENOL) 325 mg tablet Take 650 mg by mouth every 6 hours as needed. Taking Yes XARELTO 20 mg tablet Take 20 mg by mouth once daily. Taking Yes omeprazole (PRILOSEC) 20 mg capsule Take by mouth twice daily. Taking Yes diazePAM (VALIUM) 5 mg tablet Take 5 mg by mouth three times a day as needed. Patient not taking: Reported on 10/04/2023 Not Taking TRULICITY 3 mg/0.5 mL pen injector Inject subcutaneously one time a week. varenicline (CHANTIX) 1 mg tablet Take 1 tablet by mouth twice daily. Patient not taking: Reported on 10/04/2023 Not Taking metaxalone (SKELAXIN) 800 mg tablet Take 800 mg by mouth three times daily as needed. Patient not taking: Reported on 10/04/2023 Not Taking No medication comments found. ALLERGIES Allergen Reactions Quinine Hives Morphine Itching IV burning and itching Objective PHYSICAL EXAM: General: alert and oriented and healthy appearance. Pertinent negatives noted - not distressed. Skin: normal color, no rash or lesions. HEENT: No additional findings for patient's neck. Cardiovascular: regular rate and rhythm, normal S1 and S2, no rub, murmurs, or gallop. Respiratory: normal breath sounds, no wheezes or crackles. No chest wall deformity or tenderness. Abdomen: bowel sounds present and soft. Pertinent negatives noted - not tender. Extremities: no deformity, no edema or tenderness, no joint swelling or clubbing. Neurological: normal cognition and motor skills. Gait normal. No weakness or sensory deficit. PAIN ASSESSMENT: VITALS: BP 112/78 Pulse 88 Temp 97.9 Resp 17 Ht 5' 11 (1.80m) Wt 392 lb (177.8kg) SpO2 97% BMI 54.70 kg/(m^2). Diagnostic tests reviewed for today's visit: Lab Value Units Date High Low HB No results within date range. HCT No results within date range. WBC No results within date range. PLT No results within date range. NA No results within date range. K No results within date range. GLUC No results within date range. BUN No results within date range. CREAT No results within date range. PTSEC No results within date range. INR No results within date range. APTT No results within date range. ALT No results within date range. AST No results within date range. TBILI No results within date range. TSH No results within date range. Lab Value Units Date High Low HCGQT No results within date range. UHCG No results within date range. HCG, BODY* No results within date range. Lab Value Units Date High Low ABORHD No results within date range. ABSCREEN No results within date range. No results found for: HBA1C No results found for this or any previous visit (from the past 8760 hour(s)). No results found for this or any previous visit (from the past 69586 hour(s)). Implantable Devices: right total hip, left foot hardware, right knee hard swanson, On Xarelto - instructed to follow surgeon instructions on blood thinners before the surgery The Following Tests/Procedures Have Been Initiated: UC ordered per surgeon in [facility] Assessment/Plan Diagnosis: Bladder mass [N32.89] PLAN Planned Procedure: Procedure(s): CYSTOURETHROSCOPY W/FULGURATION &/OR RESECTION MEDIUM BLADDER TUMOR(S) 2.0 - 5.0 CM W/SALINE BIPOLAR (N/A) INSTILL ANTICARCINOGENIC AGENT IN BLADDER, GEMCITABINE (N/A) Instructions Given to Patient: Instructions located in the after visit summary. Patient given verbal and written preop instructions and voices comprehension and compliance. I spent a total of 40 minutes on the date of the service which included preparing to see the patient, [id number] patient care, completing clinical documentation, obtaining and/or reviewing separately obtained history, performing a medically appropriate examination, and counseling and educating the patient/family/caregiver. SIGNATURE: Angelito Hampton APRN.CNP PATIENT NAME: Adrian Aponte Jr. DATE: October 04, 2023 TIME: 2:46 PM PAGER/CONTACT #: documented in this encounter [facility] 10-06-2023 Telephone encounter Note Patient phones requesting refills as follows: Requested Prescriptions Pending Prescriptions Disp Refills tamsulosin (FLOMAX) 0.4 mg 90 capsule 3 Sig: Take 1 capsule by mouth daily at bedtime. oxybutynin XL (DITROPAN XL) 5 mg 24 hr tablet 90 tablet 3 Sig: Use daily, or as needed for bladder spasms Please review and advise. Would like to the prescriptions filled for 90 days, if applicable. Pharmacy listed on file is correct. If you have any questions, please contact patient at [phone] Luke Lau [facility] 10-06-2023 Miscellaneous Notes Patient phones requesting refills as follows: Requested Prescriptions Pending Prescriptions Disp Refills tamsulosin (FLOMAX) 0.4 mg 90 capsule 3 Sig: Take 1 capsule by mouth daily at bedtime. oxybutynin XL (DITROPAN XL) 5 mg 24 hr tablet 90 tablet 3 Sig: Use daily, or as needed for bladder spasms Please review and advise. Would like to the prescriptions filled for 90 days, if applicable. Pharmacy listed on file is correct. If you have any questions, please contact patient at [phone] Luke Lau documented in this encounter [facility] 10-04-2023 History and physical note HISTORY AND PHYSICAL EXAMINATION SERVICE DATE: 10/04/2023 SERVICE TIME: 3:48 PM PRIMARY CARE PHYSICIAN: Edin Tomlinson PA-C Assessment Patient has the following medical conditions which may affect caroline-operative course: Pre-op examination Medical conditions which may affect the perioperative course were address in today's visit. 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 On Xarelto - instructed to follow surgeon instructions how to take before the surgery Follows by Pulmonology every year Hypertension Controlled on Losartan and lasix- instructed to hold the dos Atenolol - instructed to take the dos Gastro-esophageal reflux disease without esophagitis Controlled on PPI Sleep apnea Compliant with BiPAP Follows by Pulmonology 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 Clinical Frailty Scale: 3. Well, with treated comorbid disease ARISCAT Score: Age: 51-80 Preoperative SpO2: >=96% Respiratory infection in the last month: No Preoperative anemia: No Surgical incision: peripheral Duration of surgery: <2 hrs Emergency procedure: No ARISCAT Score: 3 ANESTHESIA FINDINGS: Intubation History: No history of difficult intubation. No abnormal airway history Significant Anesthesia Considerations: none Airway History: No history of difficult airway No abnormal airway history I - PHYSICAL EVALUATION AIRWAY Patient intubated: No. DENTAL Dental findings: teeth intact and missing tooth/teeth. II - ANESTHESIA PLAN Anesthetic Plan: general Beta Dylan Monitoring Plan Post Procedure Analgesic Plan Prepared for Surgery: CONSULTS: Patient does not require consults for optimization at this time Planned Anesthetic: general The Following Tests/Procedures Have Been Initiated: No orders of the defined types were placed in this encounter. REASON FOR VISIT: Adrian Aponte Jr. is a 52 year old male who is scheduled for Procedure(s): CYSTOURETHROSCOPY W/FULGURATION &/OR RESECTION MEDIUM BLADDER TUMOR(S) 2.0 - 5.0 CM W/SALINE BIPOLAR (N/A) INSTILL ANTICARCINOGENIC AGENT IN BLADDER, GEMCITABINE (N/A) at the request of Dr. Tierra Caal Jr. for routine H&P. My final recommendation will be communicated back to the requesting physician by way of shared medical record or letter. 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 Pulmonary Embolism (Hcc) Tobacco Dependence in Remission Tricuspid Valve Regurgitation Type 2 Diabetes Mellitus (Hcc) Bilateral Leg Edema Morbidly Obese (Hcc) Malignant Neoplasm of Lateral Wall of Bladder (Hcc) Diabetic Neuropathy (Hcc) Obesity, Class III, BMI >= 40 Pre-Op Examination COVID-19 Immunization Status Overdue - Covid-19 Vaccine (3 - Pfizer risk series) Overdue since 02/24/2021 01/27/2021 Imm Admin: COVID-19 original vaccine, age 12+ yr, monovalent (PFIZER-BIONTECH - PURPLE TOP) 01/06/2021 Imm Admin: COVID-19 original vaccine, age 12+ yr, monovalent (PFIZER-BIONTECH - PURPLE TOP) CHIEF COMPLAINT: The reason for this visit is to perform a comprehensive review of the patient's past medical history, assess their current health status and obtain any additional testing required based on anesthesia guidelines. We will also identify any potential anesthesia problems or contraindications to the planned procedure. HPI: Patient is a 52 year old male who presents for pre surgical testing. Patient reports bladder cancer, reports hematuria for 3 years with large blood clots. Reports having cancer removed; monitoring with cytoscopies. Had bladder coyle scraped in the past. Denies hematuria today, reports urgency and frequency After discussing with surgeon, patient agrees to surgical intervention. Risk and benefits discussed by surgeon. Patient denies any other problems or concerns at this time. REVIEW OF SYSTEMS: General: Negative for: fever. Neurological: Negative for: delirium, dementia, seizures, TIA and strokes. Respiratory: Positive for: COPD, obstructive sleep apnea and CPAP/BiPAP compliant. Negative for: asthma, pneumonia within 6 weeks and URI < 2 weeks. Cardiovascular: Positive for: DVT/PE, hyperlipidemia, hypertension and murmur/valvular heart disease ((+ tricuspid valve regurgitation)) Negative for: atrial fibrillation, CAD, chest pain and recent SC. GI: Positive for: GERD Negative for: abdominal pain, dysphagia, hepatitis, liver disease, nausea, vomiting and ETOH >2 drinks/day. : See HPI. Endocrine: Positive for: diabetes mellitus. Negative for: hypothyroidism. Hematology: Negative for: anemia, factor V Leiden, hemophilia and von Willebrand disease. Oncology: No history of CA metastasis, chemo within 30 days, or radiotherapy within 90 days. No history of oncological symptoms or problems. Psych: Positive for: anxiety and depression. Musculoskeletal: Negative for joint pain or swelling, back pain or muscle pain. Skin: Negative for lesions, rash and itching. PAST MEDICAL HISTORY Diagnosis Date Anxiety and depression Arthritis Bilateral leg edema Bladder cancer (HCC) BPH (benign prostatic hyperplasia) Diabetic neuropathy (HCC) DM (diabetes mellitus) (HCC) GERD (gastroesophageal reflux disease) HTN (hypertension) Hx of blood clots 01/2016 Blood clot in lung and behind right knee cardiac arrest due to lack of oxygen Hypertension Intervertebral disc disorder with radiculopathy of lumbar region Malignant neoplasm of urinary bladder (HCC) Morbidly obese (HCC) KHALIF (obstructive sleep apnea) + bipap PE (pulmonary thromboembolism) (HCC) with acute cor pulmonale Tricuspid valve regurgitation PAST SURGICAL HISTORY Procedure Laterality Date ANES TRANSURETHRAL RESECTION OF BLADDER TUMOR 11/2018 Instillation of Mitomycin C in Bladder APPENDECTOMY HX ARTHRP ACETBLR/PROX FEM PROSTC AGRFT/ALGRFT Right 03/2015 CYSTO W/CALIBRAT &/DILAT multiple including BCG, TURBT CYSTOSCOPY 11/11/2021 instillation of Cysview, Transurethral resection of bladder tumr, instillation of gemcitabine FOOT LEFT OP SURGERY Left 2017 KNEE ARTHROSCOPY/SURGERY Right 01/2016 LARGE BLADDER TUMORS 09/2018 Instillation of Mitomycin C LUMBAR 2019 Lumbar Ablation MEDIUM BLADDER TUMORS 02/2022 cysview RIGHT HEART CATHERIZATION 2014 Negative for CAD TOTAL HIP REPLACEMENT Right 2012 FAMILY HISTORY Problem Relation Age of Onset other (Heart age 67) Mother other (Heart Attack age 64) Father Alzheimer's Disease Paternal Grandmother Diabetes Other Social History Tobacco Use Smoking status: Every Day Packs/day: 1.00 Years: 37.00 Additional pack years: 0.00 Total pack years: 37.00 Types: Cigarettes Passive exposure: Never Smokeless tobacco: Former Types: Chew Quit date: 1988 Tobacco comments: pt has not smoked x 2 days 10/29/21 Vaping Use Vaping Use: Never used Substance Use Topics Alcohol use: Yes Alcohol/week: 2.0 standard drinks of alcohol Types: 2 Cans of Beer (12oz) per week Comment: weekly Drug use: No Prior to Admission medications as of 10/04/23 1501 Medication Sig Last Dose Taking dulaglutide (TRULICITY) 4.5 mg/0.5 mL pen injector Inject subcutaneously one time a week. Taking Yes cyclobenzaprine (FLEXERIL) 10 mg tablet take ONE tablet BY MOUTH UP TO THREE TIMES DAILY, as needed FOR muscle SPASMS Taking Yes FLUoxetine (PROZAC) 10 mg capsule Take 1 capsule by mouth once daily. Taking Yes oxybutynin XL (DITROPAN XL) 5 mg 24 hr tablet Use daily, or as needed for bladder spasms Taking Yes tamsulosin (FLOMAX) 0.4 mg Take 1 capsule by mouth daily at bedtime. Taking Yes atenolol (TENORMIN) 50 mg tablet Take by mouth twice daily. Taking Yes FLUoxetine HCl 20 mg tablet Take 20 mg by mouth once daily. Taking Yes gabapentin 600 mg Tb24 Take 1 tablet by mouth three times daily with meals. Taking Yes furosemide (LASIX) 40 mg tablet Take 40 mg by mouth once daily. Taking Yes losartan (COZAAR) 50 mg tablet Take 50 mg by mouth once daily. Taking Yes oxyCODONE-acetaminophen (PERCOCET) 5-325 mg tablet Take 1 tablet by mouth every 6 hours as needed. Taking Yes albuterol HFA (PROVENTIL HFA, VENTOLIN HFA) 90 mcg/actuation inhaler Inhale 2 Puffs as instructed every 4 hours as needed. Taking Yes acetaminophen (TYLENOL) 325 mg tablet Take 650 mg by mouth every 6 hours as needed. Taking Yes XARELTO 20 mg tablet Take 20 mg by mouth once daily. Taking Yes omeprazole (PRILOSEC) 20 mg capsule Take by mouth twice daily. Taking Yes diazePAM (VALIUM) 5 mg tablet Take 5 mg by mouth three times a day as needed. Patient not taking: Reported on 10/04/2023 Not Taking TRULICITY 3 mg/0.5 mL pen injector Inject subcutaneously one time a week. varenicline (CHANTIX) 1 mg tablet Take 1 tablet by mouth twice daily. Patient not taking: Reported on 10/04/2023 Not Taking metaxalone (SKELAXIN) 800 mg tablet Take 800 mg by mouth three times daily as needed. Patient not taking: Reported on 10/04/2023 Not Taking No medication comments found. ALLERGIES Allergen Reactions Quinine Hives Morphine Itching IV burning and itching Objective PHYSICAL EXAM: General: alert and oriented and healthy appearance. Pertinent negatives noted - not distressed. Skin: normal color, no rash or lesions. HEENT: No additional findings for patient's neck. Cardiovascular: regular rate and rhythm, normal S1 and S2, no rub, murmurs, or gallop. Respiratory: normal breath sounds, no wheezes or crackles. No chest wall deformity or tenderness. Abdomen: bowel sounds present and soft. Pertinent negatives noted - not tender. Extremities: no deformity, no edema or tenderness, no joint swelling or clubbing. Neurological: normal cognition and motor skills. Gait normal. No weakness or sensory deficit. PAIN ASSESSMENT: VITALS: BP 112/78 Pulse 88 Temp 97.9 Resp 17 Ht 5' 11 (1.80m) Wt 392 lb (177.8kg) SpO2 97% BMI 54.70 kg/(m^2). Diagnostic tests reviewed for today's visit: Lab Value Units Date High Low HB No results within date range. HCT No results within date range. WBC No results within date range. PLT No results within date range. NA No results within date range. K No results within date range. GLUC No results within date range. BUN No results within date range. CREAT No results within date range. PTSEC No results within date range. INR No results within date range. APTT No results within date range. ALT No results within date range. AST No results within date range. TBILI No results within date range. TSH No results within date range. Lab Value Units Date High Low HCGQT No results within date range. UHCG No results within date range. HCG, BODY* No results within date range. Lab Value Units Date High Low ABORHD No results within date range. ABSCREEN No results within date range. No results found for: HBA1C No results found for this or any previous visit (from the past 8760 hour(s)). No results found for this or any previous visit (from the past 17853 hour(s)). Implantable Devices: right total hip, left foot hardware, right knee hard swanson, On Xarelto - instructed to follow surgeon instructions on blood thinners before the surgery The Following Tests/Procedures Have Been Initiated: UC ordered per surgeon in Epic Assessment/Plan Diagnosis: Bladder mass [N32.89] PLAN Planned Procedure: Procedure(s): CYSTOURETHROSCOPY W/FULGURATION &/OR RESECTION MEDIUM BLADDER TUMOR(S) 2.0 - 5.0 CM W/SALINE BIPOLAR (N/A) INSTILL ANTICARCINOGENIC AGENT IN BLADDER, GEMCITABINE (N/A) Instructions Given to Patient: Instructions located in the after visit summary. Patient given verbal and written preop instructions and voices comprehension and compliance. I spent a total of 40 minutes on the date of the service which included preparing to see the patient, [id number] patient care, completing clinical documentation, obtaining and/or reviewing separately obtained history, performing a medically appropriate examination, and counseling and educating the patient/family/caregiver. SIGNATURE: Angelito Hampton APRN.CNP PATIENT NAME: Adrian Aponte Jr. DATE: October 04, 2023 TIME: 2:46 PM PAGER/CONTACT #: [facility] 10-04-2023 History and physical note HISTORY AND PHYSICAL EXAMINATION SERVICE DATE: 10/04/2023 SERVICE TIME: 3:48 PM PRIMARY CARE PHYSICIAN: Edin Tomlinson PA-C Assessment Patient has the following medical conditions which may affect caroline-operative course: Pre-op examination Medical conditions which may affect the perioperative course were address in today's visit. 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 On Xarelto - instructed to follow surgeon instructions how to take before the surgery Follows by Pulmonology every year Hypertension Controlled on Losartan and lasix- instructed to hold the dos Atenolol - instructed to take the dos Gastro-esophageal reflux disease without esophagitis Controlled on PPI Sleep apnea Compliant with BiPAP Follows by Pulmonology 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 Clinical Frailty Scale: 3. Well, with treated comorbid disease ARISCAT Score: Age: 51-80 Preoperative SpO2: >=96% Respiratory infection in the last month: No Preoperative anemia: No Surgical incision: peripheral Duration of surgery: <2 hrs Emergency procedure: No ARISCAT Score: 3 ANESTHESIA FINDINGS: Intubation History: No history of difficult intubation. No abnormal airway history Significant Anesthesia Considerations: none Airway History: No history of difficult airway No abnormal airway history I - PHYSICAL EVALUATION AIRWAY Patient intubated: No. DENTAL Dental findings: teeth intact and missing tooth/teeth. II - ANESTHESIA PLAN Anesthetic Plan: general Beta Dylan Monitoring Plan Post Procedure Analgesic Plan Prepared for Surgery: CONSULTS: Patient does not require consults for optimization at this time Planned Anesthetic: general The Following Tests/Procedures Have Been Initiated: No orders of the defined types were placed in this encounter. REASON FOR VISIT: Adrian Aponte Jr. is a 52 year old male who is scheduled for Procedure(s): CYSTOURETHROSCOPY W/FULGURATION &/OR RESECTION MEDIUM BLADDER TUMOR(S) 2.0 - 5.0 CM W/SALINE BIPOLAR (N/A) INSTILL ANTICARCINOGENIC AGENT IN BLADDER, GEMCITABINE (N/A) at the request of Dr. Tierra Caal Jr. for routine H&P. My final recommendation will be communicated back to the requesting physician by way of shared medical record or letter. 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 Pulmonary Embolism (Hcc) Tobacco Dependence in Remission Tricuspid Valve Regurgitation Type 2 Diabetes Mellitus (Hcc) Bilateral Leg Edema Morbidly Obese (Hcc) Malignant Neoplasm of Lateral Wall of Bladder (Hcc) Diabetic Neuropathy (Hcc) Obesity, Class III, BMI >= 40 Pre-Op Examination COVID-19 Immunization Status Overdue - Covid-19 Vaccine (3 - Pfizer risk series) Overdue since 02/24/2021 01/27/2021 Imm Admin: COVID-19 original vaccine, age 12+ yr, monovalent (PFIZER-BIONTECH - PURPLE TOP) 01/06/2021 Imm Admin: COVID-19 original vaccine, age 12+ yr, monovalent (PFIZER-BIONTECH - PURPLE TOP) CHIEF COMPLAINT: The reason for this visit is to perform a comprehensive review of the patient's past medical history, assess their current health status and obtain any additional testing required based on anesthesia guidelines. We will also identify any potential anesthesia problems or contraindications to the planned procedure. HPI: Patient is a 52 year old male who presents for pre surgical testing. Patient reports bladder cancer, reports hematuria for 3 years with large blood clots. Reports having cancer removed; monitoring with cytoscopies. Had bladder coyle scraped in the past. Denies hematuria today, reports urgency and frequency After discussing with surgeon, patient agrees to surgical intervention. Risk and benefits discussed by surgeon. Patient denies any other problems or concerns at this time. REVIEW OF SYSTEMS: General: Negative for: fever. Neurological: Negative for: delirium, dementia, seizures, TIA and strokes. Respiratory: Positive for: COPD, obstructive sleep apnea and CPAP/BiPAP compliant. Negative for: asthma, pneumonia within 6 weeks and URI < 2 weeks. Cardiovascular: Positive for: DVT/PE, hyperlipidemia, hypertension and murmur/valvular heart disease ((+ tricuspid valve regurgitation)) Negative for: atrial fibrillation, CAD, chest pain and recent SC. GI: Positive for: GERD Negative for: abdominal pain, dysphagia, hepatitis, liver disease, nausea, vomiting and ETOH >2 drinks/day. : See HPI. Endocrine: Positive for: diabetes mellitus. Negative for: hypothyroidism. Hematology: Negative for: anemia, factor V Leiden, hemophilia and von Willebrand disease. Oncology: No history of CA metastasis, chemo within 30 days, or radiotherapy within 90 days. No history of oncological symptoms or problems. Psych: Positive for: anxiety and depression. Musculoskeletal: Negative for joint pain or swelling, back pain or muscle pain. Skin: Negative for lesions, rash and itching. PAST MEDICAL HISTORY Diagnosis Date Anxiety and depression Arthritis Bilateral leg edema Bladder cancer (HCC) BPH (benign prostatic hyperplasia) Diabetic neuropathy (HCC) DM (diabetes mellitus) (HCC) GERD (gastroesophageal reflux disease) HTN (hypertension) Hx of blood clots 01/2016 Blood clot in lung and behind right knee cardiac arrest due to lack of oxygen Hypertension Intervertebral disc disorder with radiculopathy of lumbar region Malignant neoplasm of urinary bladder (HCC) Morbidly obese (HCC) KHALIF (obstructive sleep apnea) + bipap PE (pulmonary thromboembolism) (HCC) with acute cor pulmonale Tricuspid valve regurgitation PAST SURGICAL HISTORY Procedure Laterality Date ANES TRANSURETHRAL RESECTION OF BLADDER TUMOR 11/2018 Instillation of Mitomycin C in Bladder APPENDECTOMY HX ARTHRP ACETBLR/PROX FEM PROSTC AGRFT/ALGRFT Right 03/2015 CYSTO W/CALIBRAT &/DILAT multiple including BCG, TURBT CYSTOSCOPY 11/11/2021 instillation of Cysview, Transurethral resection of bladder tumr, instillation of gemcitabine FOOT LEFT OP SURGERY Left 2017 KNEE ARTHROSCOPY/SURGERY Right 01/2016 LARGE BLADDER TUMORS 09/2018 Instillation of Mitomycin C LUMBAR 2019 Lumbar Ablation MEDIUM BLADDER TUMORS 02/2022 cysview RIGHT HEART CATHERIZATION 2014 Negative for CAD TOTAL HIP REPLACEMENT Right 2012 FAMILY HISTORY Problem Relation Age of Onset other (Heart age 67) Mother other (Heart Attack age 64) Father Alzheimer's Disease Paternal Grandmother Diabetes Other Social History Tobacco Use Smoking status: Every Day Packs/day: 1.00 Years: 37.00 Additional pack years: 0.00 Total pack years: 37.00 Types: Cigarettes Passive exposure: Never Smokeless tobacco: Former Types: Chew Quit date: 1988 Tobacco comments: pt has not smoked x 2 days 10/29/21 Vaping Use Vaping Use: Never used Substance Use Topics Alcohol use: Yes Alcohol/week: 2.0 standard drinks of alcohol Types: 2 Cans of Beer (12oz) per week Comment: weekly Drug use: No Prior to Admission medications as of 10/04/23 1501 Medication Sig Last Dose Taking dulaglutide (TRULICITY) 4.5 mg/0.5 mL pen injector Inject subcutaneously one time a week. Taking Yes cyclobenzaprine (FLEXERIL) 10 mg tablet take ONE tablet BY MOUTH UP TO THREE TIMES DAILY, as needed FOR muscle SPASMS Taking Yes FLUoxetine (PROZAC) 10 mg capsule Take 1 capsule by mouth once daily. Taking Yes oxybutynin XL (DITROPAN XL) 5 mg 24 hr tablet Use daily, or as needed for bladder spasms Taking Yes tamsulosin (FLOMAX) 0.4 mg Take 1 capsule by mouth daily at bedtime. Taking Yes atenolol (TENORMIN) 50 mg tablet Take by mouth twice daily. Taking Yes FLUoxetine HCl 20 mg tablet Take 20 mg by mouth once daily. Taking Yes gabapentin 600 mg Tb24 Take 1 tablet by mouth three times daily with meals. Taking Yes furosemide (LASIX) 40 mg tablet Take 40 mg by mouth once daily. Taking Yes losartan (COZAAR) 50 mg tablet Take 50 mg by mouth once daily. Taking Yes oxyCODONE-acetaminophen (PERCOCET) 5-325 mg tablet Take 1 tablet by mouth every 6 hours as needed. Taking Yes albuterol HFA (PROVENTIL HFA, VENTOLIN HFA) 90 mcg/actuation inhaler Inhale 2 Puffs as instructed every 4 hours as needed. Taking Yes acetaminophen (TYLENOL) 325 mg tablet Take 650 mg by mouth every 6 hours as needed. Taking Yes XARELTO 20 mg tablet Take 20 mg by mouth once daily. Taking Yes omeprazole (PRILOSEC) 20 mg capsule Take by mouth twice daily. Taking Yes diazePAM (VALIUM) 5 mg tablet Take 5 mg by mouth three times a day as needed. Patient not taking: Reported on 10/04/2023 Not Taking TRULICITY 3 mg/0.5 mL pen injector Inject subcutaneously one time a week. varenicline (CHANTIX) 1 mg tablet Take 1 tablet by mouth twice daily. Patient not taking: Reported on 10/04/2023 Not Taking metaxalone (SKELAXIN) 800 mg tablet Take 800 mg by mouth three times daily as needed. Patient not taking: Reported on 10/04/2023 Not Taking No medication comments found. ALLERGIES Allergen Reactions Quinine Hives Morphine Itching IV burning and itching Objective PHYSICAL EXAM: General: alert and oriented and healthy appearance. Pertinent negatives noted - not distressed. Skin: normal color, no rash or lesions. HEENT: No additional findings for patient's neck. Cardiovascular: regular rate and rhythm, normal S1 and S2, no rub, murmurs, or gallop. Respiratory: normal breath sounds, no wheezes or crackles. No chest wall deformity or tenderness. Abdomen: bowel sounds present and soft. Pertinent negatives noted - not tender. Extremities: no deformity, no edema or tenderness, no joint swelling or clubbing. Neurological: normal cognition and motor skills. Gait normal. No weakness or sensory deficit. PAIN ASSESSMENT: VITALS: BP 112/78 Pulse 88 Temp 97.9 Resp 17 Ht 5' 11 (1.80m) Wt 392 lb (177.8kg) SpO2 97% BMI 54.70 kg/(m^2). Diagnostic tests reviewed for today's visit: Lab Value Units Date High Low HB No results within date range. HCT No results within date range. WBC No results within date range. PLT No results within date range. NA No results within date range. K No results within date range. GLUC No results within date range. BUN No results within date range. CREAT No results within date range. PTSEC No results within date range. INR No results within date range. APTT No results within date range. ALT No results within date range. AST No results within date range. TBILI No results within date range. TSH No results within date range. Lab Value Units Date High Low HCGQT No results within date range. UHCG No results within date range. HCG, BODY* No results within date range. Lab Value Units Date High Low ABORHD No results within date range. ABSCREEN No results within date range. No results found for: HBA1C No results found for this or any previous visit (from the past 8760 hour(s)). No results found for this or any previous visit (from the past 43441 hour(s)). Implantable Devices: right total hip, left foot hardware, right knee hard swanson, On Xarelto - instructed to follow surgeon instructions on blood thinners before the surgery The Following Tests/Procedures Have Been Initiated: UC ordered per surgeon in [facility] Assessment/Plan Diagnosis: Bladder mass [N32.89] PLAN Planned Procedure: Procedure(s): CYSTOURETHROSCOPY W/FULGURATION &/OR RESECTION MEDIUM BLADDER TUMOR(S) 2.0 - 5.0 CM W/SALINE BIPOLAR (N/A) INSTILL ANTICARCINOGENIC AGENT IN BLADDER, GEMCITABINE (N/A) Instructions Given to Patient: Instructions located in the after visit summary. Patient given verbal and written preop instructions and voices comprehension and compliance. I spent a total of 40 minutes on the date of the service which included preparing to see the patient, [id number] patient care, completing clinical documentation, obtaining and/or reviewing separately obtained history, performing a medically appropriate examination, and counseling and educating the patient/family/caregiver. SIGNATURE: Angelito Hampton APRN.CNP PATIENT NAME: Adrian Aponte Jr. DATE: October 04, 2023 TIME: 2:46 PM PAGER/CONTACT #: documented in this encounter [facility] 10-02-2023 Instructions Angelito Hampton APRN.CNP - 10/02/2023 7:24 AM EDT PATIENT PREOPERATIVE INSTRUCTIONS Your surgeon has scheduled for your procedure at this surgery center: [facility]: [phone], [address] [id number] Please read below carefully for your personalized instructions. Surgery Date:10/18/23 Your surgeon's office will provide you with your ARRIVAL TIME for surgery. - If you have not received an arrival time by the afternoon before your surgery date, please follow up with your surgeon's office. - If you are scheduled for Monday surgery, please make sure you have your arrival time by Monday afternoon. - Please be aware that emergency situations arise, which may delay or change your surgical time. If this happens, your surgeon's office will notify you as soon as possible and regret any inconvenience. Dietary Restrictions: - Nothing to eat or drink after midnight except for a sip of water with approved medications. Please stop ALL clear liquids 2 hours prior to your ARRIVAL TIME. This is important because otherwise your surgery may have to be cancelled. Blood Thinning Medications: - Stop NSAIDS (Ibuprofen, Advil, Aleve, Motrin, Celebrex, Mobic, etc.) 7 days before surgery, or as directed by your surgeon. You may take Tylenol (Acetaminophen) or any of your pain medications that do not contain aspirin or NSAIDS as needed. IF YOU TAKE ANY OF THE FOLLOWING BLOOD THINNERS, PLEASE CONTACT YOUR SURGEON AND THE PHYSICIAN WHO PRESCRIBES IT FOR YOU IN ORDER TO GET PERIOPERATIVE INSTRUCTIONS SOON POSSIBLE. BLOOD THINNERS: Aspirin , Coumadin, Plavix, Eliquis, Pradaxa, Xarelto, Lovenox, Brilinta, Effient, Savaysa, Arixtra, etc - Stop Vitamin E, fish oil, multivitamins, Marijuana, CBD oil and other over the counter herbals and dietary supplements 7 days before surgery. - This would not apply to cancer patients who are prescribed Marinol or any other prescription form on marijuana or CBD. Medications: Pre-Surgery Med Instructions Medication Instructions dulaglutide (TRULICITY) 4.5 mg/0.5 mL pen injector Stop 7 days before surgery cyclobenzaprine (FLEXERIL) 10 mg tablet Take morning of surgery with sip of water, no other fluids FLUoxetine (PROZAC) 10 mg capsule Take morning of surgery with sip of water, no other fluids oxybutynin XL (DITROPAN XL) 5 mg 24 hr tablet Take morning of surgery with sip of water, no other fluids tamsulosin (FLOMAX) 0.4 mg Take morning of surgery with sip of water, no other fluids atenolol (TENORMIN) 50 mg tablet Take morning of surgery with sip of water, no other fluids FLUoxetine HCl 20 mg tablet Take morning of surgery with sip of water, no other fluids gabapentin 600 mg Tb24 Take morning of surgery with sip of water, no other fluids furosemide (LASIX) 40 mg tablet HOLD the day of surgery losartan (COZAAR) 50 mg tablet HOLD the day of surgery oxyCODONE-acetaminophen (PERCOCET) 5-325 mg tablet Take morning of surgery with sip of water, no other fluids albuterol HFA (PROVENTIL HFA, VENTOLIN HFA) 90 mcg/actuation inhaler Use the day of surgery and bring to the hospital acetaminophen (TYLENOL) 325 mg tablet Take morning of surgery with sip of water, no other fluids XARELTO 20 mg tablet As per surgeon's recommendation omeprazole (PRILOSEC) 20 mg capsule Take morning of surgery with sip of water, no other fluids HOLD - ENE inhibitors (Angiotensin-converting enzyme inhibitors) and ARBs (Angiotensin II receptor blockers) Day of surgery. Use inhalers as prescribed. Please bring inhalers. Weight loss medications: - Sympathomimetics such as Adipex-P (Phentermine): Stop 4 days before surgery. - Contrave (Naltrexone/Bupropion) Hold 2-3 days. - Qsymia (Phentermine/Topiramate - Please contact your prescribing provider for Pre op directions. (Depending on the patients dose this medication may need tapered off. They should get pre-op directions from their prescribing provider.) - GLP-1 Agonists (oral and injectables) Hold 7 days. Patients with Diabetes Mellitus: Please follow up with the provider that manages your diabetes and how to prepare you for surgery. Do not take the following medications Morning of surgery: Trajenta, Metformin, Actos/Pioglitazone and Amaryl/Glimepiride. For the following Medications, please HOLD 2 DAYS PRIOR TO SURGERY: Glucotrol/Glipizide, Januvia/Sitagliptin, Glyburide, Prandin/Repaglinide, Starlix/Nateglinide, Symlin/Pramlintide For the following Medications, please HOLD 3 DAYS PRIOR TO SURGERY: Canagliflozin/Invokana, Dapagliflozin/Farxiga, Empagliflozin/Jardiance, Invokamet/ canagliflozin and metformin, Xigduo XR/ dapagliglozin and metformin, Glyxambi/ empagliflozin and metformin, Syndardy/ empagliflozin and metformin For the following Medications, please HOLD 4 DAYS PRIOR TO SURGERY: Ertugliflozin/Steglatro For the following Medications, please HOLD 7 DAYS PRIOR TO SURGERY: GLP-1 AGONIST: Adlyxin (lixisenatide), Bydureon BCise (exenatide suspension), Byetta (exenatide), Mounjaro (tirzepatide), Ozempic (semaglutide injection), Rybelsus (semaglutide tablets), Tanzeum (albiglutide), Trulicity (dulaglutide), Victoza (liraglutide), Wegovy (semaglutide), Saxenda (liraglutide) Insulin Medication Instructions: Please follow up with the provider that manages your Insulin and how to prepare you for surgery. If you start any new medications after today's visit, please contact the surgeon's office. Important Reminders: - If you have a stimulator, implant or pump that requires a remote, please bring the remote with you day of surgery. - If you use CPAP/BIPAP, bring the machine with you to the surgery center. - If you are prescribed inhalers for breathing, continue using them AND bring them to the surgery center. - Candy, mints, gum and tobacco products are NOT permitted the morning of surgery. - Hearing aids, dentures and glasses may be worn the morning of surgery. - NO jewelry, body piercings, makeup, hairpins or contacts are to be worn the day of surgery. - Oral hygiene and a shower or bath is required the evening before or the morning of surgery. - NO lotion, creams, powders or deodorants on the skin the day of surgery. - Wear loose, comfortable clothing that will accommodate bandages. - Your length of stay will be determined by your surgeon. - You will need to have someone else (Family or friend) to drive you home once discharged from the hospital. You cannot drive yourself home after surgery. - YOU MUST HAVE A RESPONSIBLE LUNCH TRUCK OPERATOR TAKE YOU HOME. A HEAD STOCK OPERATOR, CAB OR UBER LUNCH TRUCK OPERATOR CANNOT BE MADE A RESPONSIBLE LUNCH TRUCK OPERATOR. - If you are undergoing an outpatient procedure you must have someone drive you home and stay with you for the first 24 hours. Your ride home must be at least 18 years old or older. Your surgery may be cancelled if you do not have someone to drive you home or take care of you. - You cannot stay in a hotel alone after an outpatient surgery. - It is recommended patients have a 72-hour period between getting their vaccine and the date of surgery. Visitation: Visitors to any [facility] facility: Any individual who is sick should not visit. Visitors to patients with COVID-19 must follow these guidelines, which include wearing a mask, eye protection, gown and gloves. [facility] in [place] Visitation hours: 7 AM to 9 PM. Pre-Surgery Unit - Patients may have up to 2 visitors at a time. PACU recovery Unit - Patients may have up to 1-2 visitors at a time. [facility] [place] Pre-Surgery area - 1 visitor at a time due to limited space. PACU recovery area - No visitors due to limited space unless patient is a minor due to limited space. If you develop symptoms such as a fever, cold, or flu, or have other changes to your health within TWO DAYS of scheduled surgery or the morning of surgery, please contact the surgeon's office. Personal Belongings: - Leave ALL valuables and money at home or with family members. - You will need a form of ID and insurance card to check in the morning of surgery. - If you do not have a copy of advance directives on file with us, please bring a copy with you on the day of surgery. If you already have an Advance Directive, please fax a copy to [phone] or email to for it to be added to your chart. If you do not have an Advance Directive, you can find the appropriate form and more information at [email or web address]. We recommend that you complete the Advance Directive form found on the website and bring it with you the day of your surgery. It can be witnessed and scanned into your chart that day. IF you are having a TOTAL KNEE, HIP REPLACEMENT OR ORTHOPEDIC SURGERY: - Orthopedic patients at [facility] listed as outpatient, please bring walker into the building. - Orthopedic patients at [facility] listed as to be admitted, please leave walkers in the car or with a family member. - [facility]opedic patients at [facility] [place], please bring the walker into the building day of surgery. Angelito Hampton APRN.CNP 10/04/23 documented in this encounter [facility] 09-19-2023 Nurse Note CYSTOSCOPY PROCEDURE NOTE: Adrian Aponte Jr. is a 52 year old male who presents with follow up bladder tumor. Pt ID verified with patient: Yes Procedure verified with patient: Yes Procedure confirmed with physician and production support analyst: Yes Sign In History and Physical Exam reviewed and is unchanged. Primary Diagnosis: Malignant Neoplasm of the Bladder and History of Bladder CA Informed Consent Discussed: Yes Sign in Communication: Completed Time Out: Team Confirms the Correct Patient, Correct Procedure; Cystoscopy, Correct Site and Site Marking, Correct Position (if applicable). Affirmation of Time Out: N/A Sign Out: Sign Out Discussion: Completed Physician: Dr. Tierra Caal A urinalysis was performed revealing no evidence of infection. The benefits, risks, alternatives of the cystoscopy procedure and personnel were discussed with the patient. The verbal consent was obtained and the patient agrees to proceed. Prophylaxis with Keflex 500 mg was given to the patient prior to the procedure. Procedure: The patient was placed on the procedure table in the supine position and prepped and draped in the usual sterile fashion. 2% Lidocaine Jelly was placed per urethra as an anesthetic in the standard fashion. Once adequate local anesthesia was achieved, the tip of the flexible cystoscope was carefully placed into the urethra under direct visual guidance. The scope was negotiated through the pendulous urethra to the level of the bulbar urethra with no evidence of stricture. The verumontanum came into view and the scope was negotiated through the prostatic urethra which showed evidence of a patent prostatic urethra. The bladder was entered and careful morales endoscopy was carried out. The posterior, superior and lateral coyle and dome of the bladder were all well visualized and the scope was retroflexed upon itself. The findings were consistent with possible evidence of bladder mucosal pathology. Clear urine ejected from the Right and Left ureteral orifice(s) was noted. At the conclusion of the procedure, the flexible cystoscope was removed atraumatically. The patient tolerated the procedure without complications. Patient was given standard post-procedure instructions, and was directed to complete the course of oral antibiotics and increase oral fluid intake as directed. Operation: Cystoscopy Anatomic Site: Bladder, Laterality: Bilateral Approach: Endoscopic Device: Flexible cystoscope Qualifier: None ASSESSMENT/PLAN: ASSESSMENT/PLAN: 1. Malignant neoplasm of urinary bladder, unspecified site (HCC) - ICD9: 188.9, ICD10: C67.9 - CEPHALEXIN 500 MG CAPSULE - LIDOCAINE 2 % MUCOSAL JELLY IN APPLICATOR The patient has been instructed to return to the office in approximately after surgery for follow-up. Evert Brownlee MA documented in this encounter [facility] 09-19-2023 Note HNO ID: [id number] Author: TIERRA CAAL JR, MD Service: ? Author Type: Physician Type: Procedures Filed: 09/19/2023 09:57 Note Text: CYSTOSCOPY PROCEDURE NOTE: Adrian Aponte Jr. is a 52 year old male who presents with follow up bladder tumor for cystoscopy. Pt ID verified with patient: Yes Fire risk assessment done Procedure verified with patient: Yes Procedure confirmed with physician and production support analyst: Yes UNIVERSAL PROTOCOL / SAFETY CHECKLIST Procedure to be Performed: cystoscopy Sign In: A Moment of CARE was completed. Personnel directly involved with the procedure wore the appropriate PPE (Personal Protective Equipment). Patient/Surrogate Stated/Verified: PATIENT VERIFIED(optional for EMERGENT procedures): Patient name, Date of , Relevant allergies, and The intended procedure Time Out Communication: Intended patient and procedure match the source documents. Consent documented and matches the intended procedure. Sign Out: SIGN OUT (optional for EMERGENT procedures): No specimen collected. Tierra Caal Jr, MD Pre procedure dx: bladder cancer Post procedure dx: same A urinalysis was performed revealing no evidence of infection. The benefits, risks, alternatives of the cystoscopy procedure and personnel were discussed with the patient. The verbal consent was obtained and the patient agrees to proceed. Procedure: The patient was placed on the procedure table in the supine position and prepped and draped in the usual sterile fashion. 2% Lidocaine Jelly was placed per urethra as an anesthetic in the standard fashion. Once adequate local anesthesia was achieved, the tip of the flexible cystoscope was carefully placed into the urethra under direct visual guidance. The scope was negotiated through the pendulous urethra to the level of the bulbar urethra with no evidence of stricture. The verumontanum came into view and the scope was negotiated through the prostatic urethra which showed evidence of a patent prostatic urethra. The bladder was entered and careful morales endoscopy was carried out. The posterior, superior and lateral coyle and dome of the bladder were all well visualized and the scope was retroflexed upon itself. The findings were consistent with small recurrence left sie of bladder near UO. At the conclusion of the procedure, the flexible cystoscope was removed atraumatically. The patient tolerated the procedure without complications. Patient was given standard post-procedure instructions, and was directed to complete the course of oral antibiotics and increase oral fluid intake as directed. ASSESSMENT/PLAN: Cystoscopy, turbt, instillation gemcitabine All r/b/a of surgery discussed, infection, bleeding, damage to nearby structures, possibility of hole in bladder, repeat surgery, lower urinary tract symptoms, the possibility of stents,catheterizations, possibility of going home with catheter. , heart attack, stroke, deep vein thrombosis, pulmonary embolus. Patient verbalized understanding and agrees to proceed. Tierra Caal Jr, MD [facility] 09-19-2023 Procedure note CYSTOSCOPY PROCEDURE NOTE: Adrian Aponte Jr. is a 52 year old male who presents with follow up bladder tumor for cystoscopy. Pt ID verified with patient: Yes Fire risk assessment done Procedure verified with patient: Yes Procedure confirmed with physician and production support analyst: Yes UNIVERSAL PROTOCOL / SAFETY CHECKLIST Procedure to be Performed: cystoscopy Sign In: A Moment of CARE was completed. Personnel directly involved with the procedure wore the appropriate PPE (Personal Protective Equipment). Patient/Surrogate Stated/Verified: PATIENT VERIFIED(optional for EMERGENT procedures): Patient name, Date of , Relevant allergies, and The intended procedure Time Out Communication: Intended patient and procedure match the source documents. Consent documented and matches the intended procedure. Sign Out: SIGN OUT (optional for EMERGENT procedures): No specimen collected. Tierra Caal Jr, MD Pre procedure dx: bladder cancer Post procedure dx: same A urinalysis was performed revealing no evidence of infection. The benefits, risks, alternatives of the cystoscopy procedure and personnel were discussed with the patient. The verbal consent was obtained and the patient agrees to proceed. Procedure: The patient was placed on the procedure table in the supine position and prepped and draped in the usual sterile fashion. 2% Lidocaine Jelly was placed per urethra as an anesthetic in the standard fashion. Once adequate local anesthesia was achieved, the tip of the flexible cystoscope was carefully placed into the urethra under direct visual guidance. The scope was negotiated through the pendulous urethra to the level of the bulbar urethra with no evidence of stricture. The verumontanum came into view and the scope was negotiated through the prostatic urethra which showed evidence of a patent prostatic urethra. The bladder was entered and careful morales endoscopy was carried out. The posterior, superior and lateral coyle and dome of the bladder were all well visualized and the scope was retroflexed upon itself. The findings were consistent with small recurrence left sie of bladder near UO. At the conclusion of the procedure, the flexible cystoscope was removed atraumatically. The patient tolerated the procedure without complications. Patient was given standard post-procedure instructions, and was directed to complete the course of oral antibiotics and increase oral fluid intake as directed. ASSESSMENT/PLAN: Cystoscopy, turbt, instillation gemcitabine All r/b/a of surgery discussed, infection, bleeding, damage to nearby structures, possibility of hole in bladder, repeat surgery, lower urinary tract symptoms, the possibility of stents,catheterizations, possibility of going home with catheter. , heart attack, stroke, deep vein thrombosis, pulmonary embolus. Patient verbalized understanding and agrees to proceed. Tierra Caal Jr, MD documented in this encounter [facility] 04-06-2023 Nurse Note BLADDER INSTILLATION Patient ID with two (2) identifiers verified by: Yes Allergies reviewed and updated: Yes Medication ordered for bladder instillation: Gemzar Current pain intensity is: 0 on a 0-10 pain scale. Have you seen any blood in the last 24 hours: No Have you had a temperature greater than 101F in the last 24 hours: No Do you have foul smelling urine or severe burning/urgency that has worsened since the last bladder instillation treatment: No No, Proceed with BCG/Gemzar Any concerns about safety in the home/falls: Not at risk for falls Start Date: 03-30-2023 Treatment number: Maintenance dose 2 of 3 Retention Time Last RX: 90 minutes Symptoms Post Last RX: None Catheter Used: 16 fr. coude Gemzar instilled at: 1040 Drained at: 1210 Residual TX: Yes 15 cc. Return to Clinic on : 1 week Patient tolerated treatment well. Patient presents for 2nd Gemzar treatment. Prepped with betadine and mixed by pharmacy instilled in the bladder via #14 straight catheter without difficulty. Patient tolerated well. Patient instructed not to void for 90 minutes. Printed instructions given to patient. Gabrielle Palma RN documented in this encounter [facility] 04-06-2023 Miscellaneous Notes Spoke with pharmacist and called it in. [facility] Pharmacist states that we have to do a system download every 30 days with their new NPI system. I called it to him and did verbal ready back. Closing. Addended by: GABRIELLE PALMA RN on: 04/06/2023 10:47 AM Modules accepted: Orders It went as a med update, can you sign again, now it is electronic normal. Not sure why it did that. Thanks. Pended again. Patient is on week 2 of Gemzar and last week was really nauseated after dose 1. Could he have any Zofran at home in case it happens again? Pended if OK. documented in this encounter [facility] 03-14-2023 Miscellaneous Notes No referral needed: === PHARMACY TEAM ==== NO AUTHORIZATION REQUIRED Per [facility] Registration, patient has Medicare Part B as primary insurance. No authorization required. Coverage of services is always based on medical necessity. Spoke with patient and scheduled for 03-30-2023 and 04-06-2023 and 04-13-2023 per patient leaving until September in [place]. Gemzar smart set sent in Orders Only. Referral done. Gemzar is fine Patient got single therapy Gemzar here in [place] in March. Can we continue with what previously on? Or would you like to change to dual therapy [place]/Tax? 3 treatments maintenance gem/tax documented in this encounter [facility] 03-14-2023 History of Present illness Narrative Pended the Gemzar 3 week dosage for patient. documented in this encounter [facility] 03-14-2023 Nurse Note CYSTOSCOPY PROCEDURE NOTE: Adrian Aponte Jr. is a 52 year old male who presents with follow up bladder tumor. Pt ID verified with patient: Yes Procedure verified with patient: Yes Procedure confirmed with physician and production support analyst: Yes Sign In History and Physical Exam reviewed and is unchanged. Primary Diagnosis: History of Bladder CA Informed Consent Discussed: Yes Sign in Communication: Completed Time Out: Team Confirms the Correct Patient, Correct Procedure; Cystoscopy, Correct Site and Site Marking, Correct Position (if applicable). Affirmation of Time Out: N/A Sign Out: Sign Out Discussion: Completed Physician: Dr. Tierra Caal A urinalysis was performed revealing no evidence of infection. The benefits, risks, alternatives of the cystoscopy procedure and personnel were discussed with the patient. The verbal consent was obtained and the patient agrees to proceed. Prophylaxis with Keflex 500 mg was given to the patient prior to the procedure. Procedure: The patient was placed on the procedure table in the supine position and prepped and draped in the usual sterile fashion. 2% Lidocaine Jelly was placed per urethra as an anesthetic in the standard fashion. Once adequate local anesthesia was achieved, the tip of the flexible cystoscope was carefully placed into the urethra under direct visual guidance. The scope was negotiated through the pendulous urethra to the level of the bulbar urethra with no evidence of stricture. The verumontanum came into view and the scope was negotiated through the prostatic urethra which showed evidence of a patent prostatic urethra. The bladder was entered and careful morales endoscopy was carried out. The posterior, superior and lateral coyle and dome of the bladder were all well visualized and the scope was retroflexed upon itself. The findings were consistent with no evidence of bladder mucosal pathology. Clear urine ejected from the Right and Left ureteral orifice(s) was noted. At the conclusion of the procedure, the flexible cystoscope was removed atraumatically. The patient tolerated the procedure without complications. Patient was given standard post-procedure instructions, and was directed to complete the course of oral antibiotics and increase oral fluid intake as directed. Operation: Cystoscopy Anatomic Site: Bladder, Laterality: Bilateral Approach: Endoscopic Device: Cystoscope Qualifier: None ASSESSMENT/PLAN: ASSESSMENT/PLAN: 1. Malignant neoplasm of urinary bladder, unspecified site (HCC) - ICD9: 188.9, ICD10: C67.9 - CEPHALEXIN 500 MG CAPSULE - LIDOCAINE HCL 2 % MUCOSAL JELLY - OXYBUTYNIN CHLORIDE ER 5 MG TABLET,EXTENDED RELEASE 24 HR Evert Brownlee Ma The patient has been instructed to return to the office in approximately 6 months for follow-up cystoscopy. Evert Brownlee Ma documented in this encounter [facility] 03-14-2023 Procedure note CYSTOSCOPY PROCEDURE NOTE: Adrian Aponte Jr. is a 52 year old male who presents with follow up bladder tumor for cystoscopy. Pt ID verified with patient: Yes Fire risk assessment done Procedure verified with patient: Yes Procedure confirmed with physician and production support analyst: Yes UNIVERSAL PROTOCOL / SAFETY CHECKLIST Procedure to be Performed: cystoscopy Sign In: A Moment of CARE was completed. Personnel directly involved with the procedure wore the appropriate PPE (Personal Protective Equipment). Patient/Surrogate Stated/Verified: PATIENT VERIFIED(optional for EMERGENT procedures): Patient name, Date of , Relevant allergies, and The intended procedure Time Out Communication: Intended patient and procedure match the source documents. Consent documented and matches the intended procedure. Sign Out: SIGN OUT (optional for EMERGENT procedures): No specimen collected. Tierra Caal Jr, MD Pre procedure dx: bladder cancer Post procedure dx: same A urinalysis was performed revealing no evidence of infection. The benefits, risks, alternatives of the cystoscopy procedure and personnel were discussed with the patient. The verbal consent was obtained and the patient agrees to proceed. Procedure: The patient was placed on the procedure table in the supine position and prepped and draped in the usual sterile fashion. 2% Lidocaine Jelly was placed per urethra as an anesthetic in the standard fashion. Once adequate local anesthesia was achieved, the tip of the flexible cystoscope was carefully placed into the urethra under direct visual guidance. The scope was negotiated through the pendulous urethra to the level of the bulbar urethra with no evidence of stricture. The verumontanum came into view and the scope was negotiated through the prostatic urethra which showed evidence of a patent prostatic urethra. The bladder was entered and careful morales endoscopy was carried out. The posterior, superior and lateral coyle and dome of the bladder were all well visualized and the scope was retroflexed upon itself. The findings were consistent with no evidence of bladder mucosal pathology. At the conclusion of the procedure, the flexible cystoscope was removed atraumatically. The patient tolerated the procedure without complications. Patient was given standard post-procedure instructions, and was directed to complete the course of oral antibiotics and increase oral fluid intake as directed. ASSESSMENT/PLAN: Main gem/tax Cysto 6 months Tierra Caal Jr, MD documented in this encounter [facility] 11-09-2022 Note Therapy Diagnosis Assessed Chronic left shoulder pain (719.41,338.29) (M25.512,G89.29) Chronic right shoulder pain (719.41,338.29) (M25.511,G89.29) Plan Goals: Goals set and discussed today. LTG's: 1) Improve b/l shoulder strength from 4-/5 to >= 4+/5 throughout in order to facilitate ability to reach overhead and lift objects. 4-6 weeks 11/09/2022, NOT MET, b/l shoulder strength 4- to 4/5 throughout 2) Improve b/l shoulder PROM to >= 165 deg flex/abd and 80 deg ER/IR in order to better reach overhead or behind back. 4-6 weeks , PARTIALLY MET, PROM/AAROM 160 deg flex/scaption/abd, 70 deg IR and 75 deg ER 3) Improve b/l shoulder pain from 5/10 to <= 3/10 with activity in order to improve QOL. 4-6 weeks 11/09/2022, NOT MET, Pain range 4-9/10 b/l shoulders 4) Improve quick dash score by >= 5 points in order to improve QOL. 4-6 weeks 11/09/2022, NOT MET, pt scored a 54.55 at DC 5) The pt will improve ability to raise arm/shoulder overhead, reach at various angles, lift/carry objects, dress upper body, overhead activity and return to exercise and work around the home without significant limitation. 4-6 weeks 11/09/2022, PARTIALLY MET, pt can do the above activity with exception to exercising but does have significant pain and has to be very cautious to move slow and not over do it. ST) Pt/caregiver will be I and consistent with HEP with use of handout as needed in order to maximize shoulder strength and ROM/flexibility. 2-3 weeks 11/09/2022, MET, pt is I with current HEP Planned interventions include: cryotherapy, education/instruction, home program, manual therapy and therapeutic exercises . Manual Therapy including IASTM and cupping as needed. Frequency and duration: No further visits planned. Potential to achieve rehab goals is good 11/09/2022 PT DC Summary: The pt has made some mild objective progress in PT with improved b/l shoulder strength and ROM/flexibility. The pt did not fully Meet his PT goals but is I with his HEP and has handouts as a reference. Pt reports that he will keep up with his ex's for ROM/flexibility and strengthening as able but that overall PT did not help improve his shoulder pain and that he still has severe B/l shoulder pain with activity. DC PT at this time. Follow up with MD as needed for further treatment interventions or diagnostic testing. Discharge patient: Progress plateaued. Assessment The pt has made some mild objective progress in PT with improved b/l shoulder strength and ROM/flexibility. The pt did not fully Meet his PT goals but is I with his HEP and has handouts as a reference. Pt reports that he will keep up with his ex's for ROM/flexibility and strengthening as able but that overall PT did not help improve his shoulder pain and that he still has severe B/l shoulder pain with activity. DC PT at this time. Follow up with MD as needed for further treatment interventions or diagnostic testing. Response to treatment: improved joint mobility/ROM and improved flexibility. Adult Risk Screening There are no spiritual/cultural practices/values/needs that are important to know Initial Fall Risk Screening: ADRIAN has not fallen in the last 6 months. ADRIAN does not have a fear of falling. He does not need assistance with sitting, standing or walking. Does not need assistance walking in his home. He does not need assistance in an unfamiliar setting. The patient is not using an assistive device. Fall Risk Screening: patient is not considered a fall risk. Pain Scale: On a scale of 0 to 10, the patient rates the pain at 4. Please identify location of pain: B/L Shoulder (Pain Range 5-9/10). Pain Quality: aching, sharp and tightness. The pain makes it hard for the patient to do these things: walking, exercise, sleep and house work. Living Will. Living Will: Living will on file. Healthcare POA: Health care proxy on file. Declaration of Mental Health Treatment: No mental health treatment on file. Depression/Suicide Screening: During the past 2 weeks, the patient has not felt down, depressed or hopeless. During the past 2 weeks, the patient has not felt little interest or pleasure in doing things. Insurance Insurance reviewed Visit number: 7 Medicare Ins: Medical Necessity. Follow Medicare Guidelines. Dx: B/L Shoulder Pain M25.511 Evaluating PT: Keith Mueller This patient?s care and PT of record will be transferred from Keith Mueller PT, MPT to Jessica Garcia PT effective as of 10/13/2022 Subjective Patient reports:. Pt reports that PT has not significantly improved his b/l shoulder pain but that he will do his ex's as able. Pt reports that he plans to follow up with MD in the near future. Home program performing as directed: Yes. Precautions: PMH; hx of bladder CA, no active CA currently but pt is monitored by MD 2x/year, HTN, neuropathy, OA, R THR, hx of R knee surgery, hx of lumbar ablasion, hx of chronic LBP. Precautions: No heated modalities due t (more content not included)... [employer] 10-24-2022 Miscellaneous Notes Pharmacy verified in [employer] Patient has been identified by name and date of : Yes Patient aware RX will be sent to pharmacy. No need to notify patient. Patient phones for refill(s): Requested Prescriptions No prescriptions requested or ordered in this encounter Date of last office visit : 04/21/2022 Date of next office visit : 03/14/2023 Last 2 Encounter Wt Readings: Date: Wt: 09/06/2022 169.6 kg (374 lb) 04/21/2022 161.5 kg (356 lb) Not applicable Please advise. Leigh Kaplan documented in this encounter [facility] 09-13-2022 Miscellaneous Notes Images from the original note were not included. Daniela Cruz, DO Gabrielle Palma RN Needs cysto in March - [facility] provider. Dont know who. Spoke with patient who got set up with Dr. Caal on 03-14-2023 at 1030. documented in this encounter [facility] 09-06-2022 History of Present illness Narrative CYSTOSCOPY PROCEDURE NOTE: Adrian Aponte Jr. is a 51 year old male who presents with hematuria gross for cystoscopy. Pt ID verified with patient: Yes Procedure verified with patient: Yes Procedure confirmed with physician and production support analyst: Yes Sign In History and Physical Exam reviewed and is unchanged. . Informed Consent Discussed: Yes. Risks, benefits, alternatives and personnel discussed with patient who consents to proceed. Sign in Communication: Completed Time Out: Team Confirms the Correct Patient, Correct Procedure; Cystoscopy, Correct Site and Site Marking, Correct Position (if applicable). Affirmation of Time Out: Yes Sign Out: Sign Out Discussion: Completed Physician: Daniela Cruz DO A urinalysis was performed revealing no evidence of infection. The benefits, risks, alternatives of the cystoscopy procedure and personnel were discussed with the patient. The verbal consent was obtained and the patient agrees to proceed. Procedure: The patient was placed on the procedure table in the supine position and prepped and draped in the usual sterile fashion. 2% Lidocaine Jelly was placed per urethra as an anesthetic in the standard fashion. Once adequate local anesthesia was achieved, the tip of the flexible cystoscope was carefully placed into the urethra under direct visual guidance. The scope was negotiated through the pendulous urethra to the level of the bulbar urethra with no evidence of stricture. The verumontanum came into view and the scope was negotiated through the prostatic urethra which showed evidence of bi lobar occlusive disease. The bladder was entered and careful morales endoscopy was carried out. The posterior, superior and lateral coyle and dome of the bladder were all well visualized and the scope was retroflexed upon itself. The findings were consistent with possible recurrence at the bed of previous resection. At the conclusion of the procedure, the flexible cystoscope was removed atraumatically. The patient tolerated the procedure without complications. Patient was given standard post-procedure instructions, and was directed to complete the course of oral antibiotics and increase oral fluid intake as directed. ASSESSMENT/PLAN: Bladder Cancer - Positive urine cytology - Large bladder mass, left lateral wall S/P TURBT with MITOMYCIN on 10/04/18 HG T1 No muscle present Re-staging TURBT in [place] - negative malignancy Completed BCG induction - 6 treatments - 02/22/19 Completed BCG Maintenance # 1 - 3 treatments - 08/26/19 Completed BCG Maintenance course # 2 - 3 treatments - 02/28/20 Completed BCG Maintenance course # 3 - 3 treatments - 12/03/20 Cystoscopy negative 04/08/21 (small area of erythema) Urine cytology negative. Cystoscopy 10/21/21 with increasing erythema and possible tumor recurrence. S/P Cysview, TURBT and gemcitabine instillation - 11/11/21 Low Grade Ta recurrence found. Continued to have recurrent hematuria. Cysto 01/20/22 with possible recurrence S/P repeat TURBT - 02/10/22 - Low Grade Ta - muscle not involved. Repeat Gemzaar induction X 6 treatments - 04/07/22. Cysto 04/21/22 - essentially negative with treatment changes (no urine cytology today - recent gemzaar) Cysto 09/06/22 - negative, no tumors. Send urine cytology. Will need maintenance Gemzaar after next cysto. He is planning another RV trip from April to September. CT Urogram November 2020 - negative. CT urogram - 01/26/22- possible recurrence - Left UVJ Tobacco, process of quitting with chantix Hx of PE and DVT, on xaralto, will need to hold for 3-5 days prior Daniela Cruz DO documented in this encounter [facility] 06-07-2022 Miscellaneous Notes Pharmacy called requesting the following refill. Requested Prescriptions Pending Prescriptions Disp Refills tamsulosin (FLOMAX) 0.4 mg [Pharmacy Med Name: TAMSULOSIN HCL 0.4 MG CAP 0.4 Capsule] 90 capsule 3 Sig: TAKE 1 CAPSULE BY MOUTH DAILY AT BEDTIME. Patient last appointment: 04/21/2022 Patient Phone numbers: [phone] (home) Request is for script(s) to be escript to pharmacy. Biju Villalobos Ma documented in this encounter [facility] 04-21-2022 Nurse Note CYSTOSCOPY PROCEDURE NOTE: Adrian Aponte Jr. is a 51 year old male who presents with follow up bladder tumor. Pt ID verified with patient: Yes Procedure verified with patient: Yes Procedure confirmed with physician and production support analyst: Yes Sign In History and Physical Exam reviewed and is unchanged. Primary Diagnosis: History of Bladder CA Informed Consent Discussed: Yes Sign in Communication: Completed Time Out: Team Confirms the Correct Patient, Correct Procedure; Cystoscopy, Correct Site and Site Marking, Correct Position (if applicable). Affirmation of Time Out: N/A Sign Out: Sign Out Discussion: Completed Physician: Dr. Daniela Wellington urinalysis was performed revealing no evidence of infection. The benefits, risks, alternatives of the cystoscopy procedure and personnel were discussed with the patient. The verbal consent was obtained and the patient agrees to proceed. Prophylaxis with Keflex 500 mg was given to the patient prior to the procedure. Procedure: The patient was placed on the procedure table in the supine position and prepped and draped in the usual sterile fashion. 2% Lidocaine Jelly was placed per urethra as an anesthetic in the standard fashion. Once adequate local anesthesia was achieved, the tip of the flexible cystoscope was carefully placed into the urethra under direct visual guidance. The scope was negotiated through the pendulous urethra to the level of the bulbar urethra with no evidence of stricture. The bladder was entered and careful morales endoscopy was carried out. The posterior, superior and lateral coyle and dome of the bladder were all well visualized and the scope was retroflexed upon itself. The findings were consistent with no evidence of bladder mucosal pathology. Clear urine ejected from the Right and Left ureteral orifice(s) were noted. At the conclusion of the procedure, the flexible cystoscope was removed atraumatically. The patient tolerated the procedure without complications. Patient was given standard post-procedure instructions, and was directed to complete the course of oral antibiotics and increase oral fluid intake as directed. Operation: Cystoscopy Anatomic Site: Bladder, Laterality: Bilateral Approach: Endoscopic Device: None Qualifier: None ASSESSMENT/PLAN: ASSESSMENT/PLAN: 1. 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 Evert Brownlee Ma documented in this encounter [facility] 04-21-2022 Procedure note Procedure(s): CYSTOSCOPY Pre-Procedure Diagnose(s): Malignant neoplasm of urinary bladder, unspecified site (HCC) Post-Procedure Diagnose(s): Malignant neoplasm of urinary bladder, unspecified site (HCC) CYSTOSCOPY PROCEDURE NOTE: Adrian Aponte Jr. is a 51 year old male who presents with hematuria gross for cystoscopy. Pt ID verified with patient: Yes Procedure verified with patient: Yes Procedure confirmed with physician and production support analyst: Yes Sign In History and Physical Exam reviewed and is unchanged. . Informed Consent Discussed: Yes. Risks, benefits, alternatives and personnel discussed with patient who consents to proceed. Sign in Communication: Completed Time Out: Team Confirms the Correct Patient, Correct Procedure; Cystoscopy, Correct Site and Site Marking, Correct Position (if applicable). Affirmation of Time Out: Yes Sign Out: Sign Out Discussion: Completed Physician: Daniela Cruz DO A urinalysis was performed revealing no evidence of infection. The benefits, risks, alternatives of the cystoscopy procedure and personnel were discussed with the patient. The verbal consent was obtained and the patient agrees to proceed. Procedure: The patient was placed on the procedure table in the supine position and prepped and draped in the usual sterile fashion. 2% Lidocaine Jelly was placed per urethra as an anesthetic in the standard fashion. Once adequate local anesthesia was achieved, the tip of the flexible cystoscope was carefully placed into the urethra under direct visual guidance. The scope was negotiated through the pendulous urethra to the level of the bulbar urethra with no evidence of stricture. The verumontanum came into view and the scope was negotiated through the prostatic urethra which showed evidence of bi lobar occlusive disease. The bladder was entered and careful morales endoscopy was carried out. The posterior, superior and lateral coyle and dome of the bladder were all well visualized and the scope was retroflexed upon itself. The findings were consistent with possible recurrence at the bed of previous resection. At the conclusion of the procedure, the flexible cystoscope was removed atraumatically. The patient tolerated the procedure without complications. Patient was given standard post-procedure instructions, and was directed to complete the course of oral antibiotics and increase oral fluid intake as directed. ASSESSMENT/PLAN: Bladder Cancer - Positive urine cytology - Large bladder mass, left lateral wall S/P TURBT with MITOMYCIN on 10/04/18 HG T1 No muscle present Re-staging TURBT in [place] - negative malignancy Completed BCG induction - 6 treatments - 02/22/19 Completed BCG Maintenance # 1 - 3 treatments - 08/26/19 Completed BCG Maintenance course # 2 - 3 treatments - 02/28/20 Completed BCG Maintenance course # 3 - 3 treatments - 6/24/21 Cystoscopy negative 04/08/21 (small area of erythema) Urine cytology negative. Cystoscopy 10/21/21 with increasing erythema and possible tumor recurrence. S/P Cysview, TURBT and gemcitabine instillation - 11/11/21 Low Grade Ta recurrence found. Continued to have recurrent hematuria. Cysto 01/20/22 with possible recurrence S/P repeat TURBT - 02/10/22 - Low Grade Ta - muscle not involved. Repeat Gemzaar induction X 6 treatments - 04/07/22. Cysto today 04/21/22 - essentially negative with treatment changes (no urine cytology today - recent gemzaar) He is planning another RV trip from April to September. CT Urogram November 2020 - negative. CT urogram - 01/26/22- possible recurrence - Left UVJ Tobacco, process of quitting with chantix Hx of PE and DVT, on xaralto, will need to hold for 3-5 days prior Daniela Cruz DO documented in this encounter [facility] 03-31-2022 Nurse Note BLADDER INSTILLATION Patient ID with two (2) identifiers verified by: Yes Allergies reviewed and updated: Yes Medication ordered for bladder instillation: Gemzar Current pain intensity is: 0 on a 0-10 pain scale. Have you seen any blood in the last 24 hours: No Have you had a temperature greater than 101F in the last 24 hours: No Do you have foul smelling urine or severe burning/urgency that has worsened since the last bladder instillation treatment: No No, Proceed with BCG/Gemzar Any concerns about safety in the home/falls: Not at risk for falls Start Date: 03-03-2022 Treatment number: 5 of 6 Retention Time Last RX: 90 minutes Symptoms Post Last RX: Fatigue Catheter Used: 16 fr. coude Gemzar instilled at: 0900 Drained at: 1030 Residual TX: Yes 50 cc. Return to Clinic on : 1 week Patient tolerated treatment well. Patient presents for 5th Gemzar treatment. Prepped with betadine and Mixed by Pharmacy instilled in the bladder via #16 Coude' red Wall catheter without difficulty. Patient tolerated well. Patient instructed not to void for 90 minutes. Printed instructions given to patient. Gabrielle Palma RN documented in this encounter [facility] 03-24-2022 Nurse Note BLADDER INSTILLATION Patient ID with two (2) identifiers verified by: Yes Allergies reviewed and updated: Yes Medication ordered for bladder instillation: Gemzar Current pain intensity is: 0 on a 0-10 pain scale. Have you seen any blood in the last 24 hours: No Have you had a temperature greater than 101F in the last 24 hours: No Do you have foul smelling urine or severe burning/urgency that has worsened since the last bladder instillation treatment: No No, Proceed with BCG/Gemzar Any concerns about safety in the home/falls: Not at risk for falls Start Date: 03-03-2022 Treatment number: 4 of 6 Retention Time Last RX: 90 minutes Symptoms Post Last RX: Fatigue Catheter Used: 16 fr. coude Gemzar instilled at: 1110 Drained at: 1240 Residual TX: Yes 10 cc. Return to Clinic on : 1 week Patient tolerated treatment well. Patient presents for 4th Gemzar treatment. Prepped with betadine and 1 vial in 50 ml of saline instilled in the bladder via #14 Coude' red Wall catheter without difficulty. Patient tolerated well. Patient instructed not to void for 90 minutes. Printed instructions given to patient. Gabrielle Palma RN documented in this encounter [facility] 03-17-2022 History of Present illness Narrative Patient now staying until after Thanksgiving so he can get full 6 doses. Pended the remaining 3 doses. Please review and file. documented in this encounter [facility] 03-17-2022 Nurse Note BLADDER INSTILLATION Patient ID with two (2) identifiers verified by: Yes Allergies reviewed and updated: Yes Medication ordered for bladder instillation: Gemzar Current pain intensity is: 0 on a 0-10 pain scale. Have you seen any blood in the last 24 hours: No Have you had a temperature greater than 101F in the last 24 hours: No Do you have foul smelling urine or severe burning/urgency that has worsened since the last bladder instillation treatment: No No, Proceed with BCG/Gemzar Any concerns about safety in the home/falls: Not at risk for falls Start Date: 03-03-2022 Treatment number: Maintenance dose 3 of 3, but now getting an additional 3 Retention Time Last RX: 90 minutes Symptoms Post Last RX: Fatigue Catheter Used: 16 fr. coude Gemzar instilled at: 1010 Drained at: 1140 Residual TX: Yes 30 cc. Return to Clinic on : 1 week Patient tolerated treatment well. Patient presents for 3rd BCG treatment. Prepped with betadine and Mixed by Pharmacy instilled in the bladder via #16 Coude' red Wall catheter without difficulty. Patient tolerated well. Patient instructed not to void for 90 minutes. Printed instructions given to patient. Gabrielle Palma RN documented in this encounter [facility] 03-10-2022 Nurse Note BLADDER INSTILLATION Patient ID with two (2) identifiers verified by: Yes Allergies reviewed and updated: Yes Medication ordered for bladder instillation: Gemzar Current pain intensity is: 0 on a 0-10 pain scale. Have you seen any blood in the last 24 hours: Yes Have you had a temperature greater than 101F in the last 24 hours: No Do you have foul smelling urine or severe burning/urgency that has worsened since the last bladder instillation treatment: No Notified Dr. Cruz of urine dip and patient denying any symptoms, feels great just blood off and on. He advised to continue treatment. Any concerns about safety in the home/falls: Not at risk for falls Start Date: 03-03-2022 Treatment number: Maintenance dose 2 of 3 Retention Time Last RX: 90 minutes Symptoms Post Last RX: Hematuria Catheter Used: 16 fr. red mariangel Gemzar instilled at: 1100 Drained at: 1230 Residual TX: Yes 20 cc. Return to Clinic on : 1 week Patient tolerated treatment well. Patient presents for 2nd Gemzar treatment. Prepped with betadine and mixed by Pharmacist instilled in the bladder via #16 Coude' red Wall catheter without difficulty. Patient tolerated well. Patient instructed not to void for 90 minutes. Printed instructions given to patient. Gabrielle Palma RN documented in this encounter [facility] 03-03-2022 Nurse Note Patient still having blood off and on occasionally but has not seen in the last [address] Cruz about this and showed him the Urine dip. He advised to proceed with Gemzar. BLADDER INSTILLATION Patient ID with two (2) identifiers verified by: Yes Allergies reviewed and updated: Yes Medication ordered for bladder instillation: Gemzar Current pain intensity is: 0 on a 0-10 pain scale. Have you seen any blood in the last 24 hours: No Have you had a temperature greater than 101F in the last 24 hours: No Do you have foul smelling urine or severe burning/urgency that has worsened since the last bladder instillation treatment: No No, Proceed with BCG/Gemzar Any concerns about safety in the home/falls: Not at risk for falls Start Date: 03-03-2022 Treatment number: Maintenance dose 1 of 3 Retention Time Last RX: First Dose Symptoms Post Last RX: None Catheter Used: 16 fr. red mariangel Gemzar instilled at: 1000 Drained at: 1130 Residual TX: Yes 25 cc. Return to Clinic on : 1 week Patient tolerated treatment well. Patient presents for 1st Gemzar treatment. Prepped with betadine and Mixed by Pharmacy instilled in the bladder via #16 Coude' red Wall catheter without difficulty. Patient tolerated well. Patient instructed not to void for 90 minutes. Printed instructions given to patient. Gabrielle Palma RN documented in this encounter [facility] 03-03-2022 History of Present illness Narrative Pended the 3 Gemzars, I can't find the other signed and helds from molly, please file again. documented in this encounter [facility] 02-22-2022 Miscellaneous Notes Closing after patient is scheduled. Patient will come in: 03-03-2022 at 9 am for Gemzar #1 03-10-2022 at 11 am for Gemzar #2 03-17-2022 at 10 am for Gemzar #3 Please link referral to appt. Images from the original note were not included. DO Gabrielle Chery RN Low grade cancer recurrence found. In 2-3 weeks he needs Gemcitabine X 3 Cysto before he leaves on vacation Called and left a message to get set up for this. ----- Message from Daniela Cruz DO sent at 02/17/2022 9:31 AM EDT ----- Low grade cancer recurrence found. In 2-3 weeks he needs Gemcitabine X 3 Cysto before he leaves on vacation documented in this encounter [facility] 01-27-2022 History and physical note HISTORY AND PHYSICAL EXAMINATION SERVICE DATE: 01/26/2022 SERVICE TIME: 10:04 AM PRIMARY CARE PHYSICIAN: Edin Tomlinson PA-C REASON FOR VISIT: Adrian Aponte Jr. is a 51 year old male who is scheduled for Procedure(s): CYSTOSCOPY (N/A) CYSTOSCOPY W/CYSVIEW (N/A) CYSTOURETHROSCOPY W/FULGURATION &/OR RESECTION MEDIUM BLADDER TUMOR(S) 2.0 - 5.0 CM W/SALINE BIPOLAR (N/A) INSTILL ANTICARCINOGENIC AGENT IN BLADDER (N/A) at the request of Dr. Daniela Cruz for routine H&P. My final recommendation will be communicated back to the requesting physician by way of shared medical record or letter. 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 Pulmonary Embolism (Hcc) Tobacco Dependence in Remission Tricuspid Valve Regurgitation Type 2 Diabetes Mellitus (Hcc) Bilateral Leg Edema Morbidly Obese (Hcc) Malignant Neoplasm of Lateral Wall of Bladder (Hcc) Diabetic Neuropathy (Hcc) COVID-19 Immunization Status Overdue - COVID-19 VACCINE (3 - Booster for Pfizer series) Overdue since 06/29/2021 01/27/2021 Imm Admin: COVID-19 vaccine, age 12+ yr (PFIZER-BIONTECH - PURPLE TOP) 01/06/2021 Imm Admin: COVID-19 vaccine, age 12+ yr (PFIZER-BIONTECH - PURPLE TOP) CHIEF COMPLAINT: Preoperative Examination HPI: Patient presents to PST for the above procedure. Pt states he has had hematuria for nearly 3 years. Pt states that he had a bladder tumor removed in the past and a biopsy afterwards revealed cancerous cells. Pt complains of urgency on occasion. Pt denies any frequency, dysuria.Patient denies any other problems or concerns at this time. Risks and benefits of the procedure discussed by Surgeon and patient agreed to proceed with planned procedure. REVIEW OF SYSTEMS: General: No weight loss, malaise or fevers. Neurological: Negative for: headaches, seizures and strokes. Respiratory: Positive for: obstructive sleep apnea and CPAP/BiPAP compliant. Negative for: asthma, COPD, current cough, dyspnea and tobacco use. Cardiovascular: Positive for: DVT/PE and hypertension Negative for: AICD/PPM, angina, anticoagulation therapy, atrial fibrillation, CAD, chest pain, CHF and hyperlipidemia. GI: Positive for: GERD Negative for: abdominal pain, dysphagia, nausea and vomiting. : See HPI. Endocrine: Negative for: diabetes mellitus, hyperthyroidism and hypothyroidism. Hematology: Positive for: chronic anti-coagulation/platelet meds. SIMI - Chronic Anticoagulative/Platelet Meds Cmt Option Cat List: Xarelto. Negative for: anemia, bruises/bleeds easily and factor V Leiden. Oncology: See HPI. Psych: Negative for: anxiety and depression. Musculoskeletal: Negative for joint pain or swelling, back pain or muscle pain. Skin: Negative for lesions, rash and itching. PAST MEDICAL HISTORY Diagnosis Date Anxiety and depression Arthritis Bilateral leg edema Bladder cancer (HCC) BPH (benign prostatic hyperplasia) Diabetic neuropathy (HCC) DM (diabetes mellitus) (HCC) GERD (gastroesophageal reflux disease) HTN (hypertension) Hx of blood clots 01/2016 Blood clot in lung and behind right knee cardiac arrest due to lack of oxygen Hypertension Intervertebral disc disorder with radiculopathy of lumbar region Malignant neoplasm of urinary bladder (HCC) Morbidly obese (HCC) KHALIF (obstructive sleep apnea) + bipap PE (pulmonary thromboembolism) (HCC) with acute cor pulmonale Tricuspid valve regurgitation PAST SURGICAL HISTORY Procedure Laterality Date APPENDECTOMY HX ARTHRP ACETBLR/PROX FEM PROSTC AGRFT/ALGRFT Right 03/2015 CYSTO W/CALIBRAT &/DILAT 2019 fulgeration CYSTO W/CALIBRAT &/DILAT multiple including BCG, TURBT CYSTOSCOPY 11/11/2021 instillation of Cysview, Transurethral resection of bladder tumr, instillation of gemcitabine FOOT LEFT OP SURGERY Left 2017 KNEE ARTHROSCOPY/SURGERY Right 01/2016 LUMBAR 2019 Lumbar Ablation RIGHT HEART CATHERIZATION 2015 Negative for CAD TOTAL HIP REPLACEMENT Right 2012 FAMILY HISTORY Problem Relation Age of Onset other (Heart age 67) Mother other (Heart Attack age 64) Father Alzheimer's Disease Paternal Grandmother Diabetes Other Social History Tobacco Use Smoking status: Every Day Packs/day: 1.00 Years: 30.00 Pack years: 30.00 Types: Cigarettes Last attempt to quit: 09/09/2018 Years since quittin.3 Smokeless tobacco: Former Types: Chew Quit date: 1988 Tobacco comments: pt has not smoked x 2 days 10/29/21 Vaping Use Vaping Use: Never used Substance Use Topics Alcohol use: Yes Alcohol/week: 5.0 standard drinks Types: 2 Cans of Beer (12oz) per week Comment: weekly Drug use: No Prior to Admission medications as of 01/27/22 0900 Medication Sig Last Dose Taking TRULICITY 3 mg/0.5 mL pen injector Inject subcutaneously one time a week. Taking Yes atenolol (TENORMIN) 50 mg tablet Take by mouth twice daily. Taking Yes phenazopyridine (PYRIDIUM) 200 mg tablet Take 1 tablet by mouth three times daily as needed. Taking Yes FLUoxetine HCl 20 mg tablet Take 20 mg by mouth once daily. Taking Yes varenicline (CHANTIX) 1 mg tablet Take 1 tablet by mouth twice daily. Taking Yes tamsulosin (FLOMAX) 0.4 mg Take 1 capsule by mouth daily at bedtime for 90 doses. Taking Yes gabapentin 600 mg Tb24 Take 1 tablet by mouth three times daily with meals. Taking Yes furosemide (LASIX) 40 mg tablet Take 40 mg by mouth once daily. Taking Yes metaxalone (SKELAXIN) 800 mg tablet Take 800 mg by mouth three times daily as needed. Taking Yes oxybutynin (DITROPAN) 5 mg tablet Take 1 tablet by mouth three times daily. For bladder spasm. MUST stop taking 24 hrs prior to catheter removal Patient taking differently: Take 5 mg by mouth as needed. For bladder spasm. MUST stop taking 24 hrs prior to catheter removal Taking Yes losartan (COZAAR) 50 mg tablet Take 50 mg by mouth once daily. Taking Yes oxyCODONE-acetaminophen (PERCOCET) 5-325 mg tablet Take 1 tablet by mouth every 6 hours as needed. Taking Yes albuterol HFA (PROVENTIL HFA, VENTOLIN HFA) 90 mcg/actuation inhaler Inhale 2 Puffs as instructed every 4 hours as needed. Taking Yes acetaminophen (TYLENOL) 325 mg tablet Take 650 mg by mouth every 6 hours as needed. Taking Yes XARELTO 20 mg tablet Take 20 mg by mouth once daily. Taking Yes omeprazole (PRILOSEC) 20 mg capsule Take by mouth twice daily. Taking Yes oxybutynin XL (DITROPAN XL) 5 mg 24 hr tablet Take 1 tablet by mouth once daily for 15 days. No medication comments found. ALLERGIES Allergen Reactions Quinine Hives Morphine Itching IV burning and itching Objective PHYSICAL EXAM: General: alert and oriented, healthy appearance and morbidly obese. Pertinent negatives noted - not distressed. Skin: normal color, no rash or lesions. HEENT: EOM intact and pupils equal round. Cardiovascular: regular rate and rhythm, normal S1 and S2, no rub, murmurs, or gallop. Respiratory: No chest wall deformity or tenderness. Positive for wheezing (Expiratory). Abdomen: bowel sounds present. Pertinent negatives noted - no abnormal bowel sounds. Extremities: no deformity, no edema or tenderness, no joint swelling or clubbing. Neurological: normal cognition and motor skills. Gait normal. No weakness or sensory deficit. PAIN ASSESSMENT: Pain Pain Level: 0 VITALS: BP 132/83 Pulse 70 Temp 98.6 Resp 18 Ht 5' 11 (1.80m) Wt 365 lb (165.6kg) SpO2 95% BMI 50.93 kg/(m^2). Diagnostic tests reviewed for today's visit: Lab Value Units Date High Low HB No results within date range. HCT No results within date range. WBC No results within date range. PLT No results within date range. NA No results within date range. K No results within date range. GLUC No results within date range. BUN No results within date range. CREAT 0.90 mg/dL 01/24/2022 1.22 0.73 PTSEC No results within date range. INR No results within date range. APTT No results within date range. ALT No results within date range. AST No results within date range. TBILI No results within date range. TSH No results within date range. Lab Value Units Date High Low HCGQT No results within date range. UHCG No results within date range. HCG, BODY* No results within date range. Lab Value Units Date High Low ABORHD No results within date range. ABSCREEN No results within date range. No results found for: HBA1C No results found for this or any previous visit (from the past 8760 hour(s)). No results found for this or any previous visit (from the past 52210 hour(s)). Assessment No problem-specific Assessment & Plan notes found for this encounter. Burns Activity Status Index: METS: Climb a flight of stairs or walk up a hill (5.50 METs) DASI Score: 5.5 Patient denies any chest pain or undue shortness of breath with the above physical activity. Clinical Frailty Scale: 3. Well, with treated comorbid disease ARISCAT Score: Age: 51-80 Preoperative SpO2: 91-95% Respiratory infection in the last month: No Preoperative anemia: No Surgical incision: peripheral Duration of surgery: <2 hrs Emergency procedure: No ARISCAT Score: 11 ANESTHESIA FINDINGS: Intubation History: No history of difficult intubation. No abnormal airway history Significant Anesthesia Considerations: Pt states he dislikes how he feels with versed none Airway History: No history of difficult airway No abnormal airway history I - PHYSICAL EVALUATION DENTAL Dental findings: teeth intact and missing tooth/teeth. II - ANESTHESIA PLAN Anesthetic Plan: general Prepared for Surgery: CONSULTS: The following consults have been initiated at this time: primary care/internal medicine (Printed and in paper chart). Planned Anesthetic: general The Following Tests/Procedures Have Been Initiated: Orders Placed This Encounter Urine Culture Standing Status: Future Standing Expiration Date: 03/28/2022 Order Specific Question: Source Answer: URINE-MIDSTREAM CLEAN CATCH Implantable Devices: Hardware in foot, knee, hip. Patient has the following medical conditions which may affect caroline-operative course RED DOTTED on 11/02/21 due to prior cardiac arrest and was okayed to continue with procedure in note from 11/05/21. Cardiac arrest - Following procedure in 2018. Pt states that he had an ECHO and heart cath at [place]. Pt states normal besides mild leaky valve. COPD - Albuterol. Pt uses rescue inhaler less than once a week. Pt denies hospitalization in last year. Diabetes - Well controlled. Trulicity. HTN - Well controlled. Atenolol, Losartan. Morbid Obesity KHALIF - Patient is using CPAP/BIPAP Advised to bring CPAP/BIPAP machine to hospital. 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 Occurred last in 2018 last following a surgery. Xarelto. Pt instructed to take blood pressure and heart medications DOS. Pt instructed to contact surgeon and prescribing provider for instructions regarding blood thinners. The Following Tests/Procedures Have Been Initiated: UC ordered per surgeon. Assessment/Plan Malignant neoplasm of urinary bladder, unspecified site (HCC) [C67.9] PLAN Diagnosis: Planned Procedure: Procedure(s): CYSTOSCOPY (N/A) CYSTOSCOPY W/CYSVIEW (N/A) CYSTOURETHROSCOPY W/FULGURATION &/OR RESECTION MEDIUM BLADDER TUMOR(S) 2.0 - 5.0 CM W/SALINE BIPOLAR (N/A) INSTILL ANTICARCINOGENIC AGENT IN BLADDER (N/A) Instructions Given to Patient: Instructions located in the after visit summary. Patient given verbal and written preop instructions and voices comprehension and compliance. SIGNATURE: FRANNIE Ford PATIENT NAME: Adrian Aponte Jr. DATE: January 26, 2022 TIME: 8:52 AM PAGER/CONTACT #: documented in this encounter [facility] 01-26-2022 Instructions FRANNIE Ford - 01/26/2022 8:53 AM EDT PATIENT PREOPERATIVE INSTRUCTIONS Your surgeon has scheduled for your procedure at this surgery center: [facility]: [phone], [address] [id number] Please enter through the main entrance and proceed to the blue elevators. [facility] is located to the left of the blue elevator. Please read below carefully for your personalized instructions. Arrival Time for Surgery: DATE: 02/10/22 OR TIME: 4:00PM CHECK IN TIME: 2:00PM Please be aware that emergency situations arise, which may delay or change your surgical time. If this happens, we will notify you as soon as possible and regret any inconvenience. Requirement for Vaccinations : 72-hour period between getting vaccine and date of surgery. Dietary Restrictions: - Nothing to eat after midnight. You may have 12 ounces of clear liquids ( water, Gatorade, apple juice, carbonated beverage, clear tea or black coffee) until 4 hours before your surgery. This is important because if you do, your surgery may have to be cancelled Blood Thinning Medications: - Stop NSAIDS (Ibuprofen, Advil, Aleve, Motrin, Celebrex, Mobic, etc.) 7 days before surgery, as directed by your surgeon. You may take Tylenol (Acetaminophen) or any of your pain medications that do not contain aspirin or NSAIDS as needed. IF YOU TAKE ANY OF THE FOLLOWING BLOOD THINNERS, PLEASE CONTACT YOUR SURGEON AND THE PHYSICIAN WHO PRESCRIBES IT FOR YOU IN ORDER TO GET PERIOPERATIVE INSTRUCTIONS SOON POSSIBLE. BLOOD THINNERS: Aspirin , Coumadin, Plavix, Eliquis, Pradaxa, Xarelto, Lovenox, Brilinta, Effient, Savaysa, Arixtra, etc - Stop Vitamin E, fish oil, multivitamins, Marijuana, CBD oil and other over the counter herbals and dietary supplements 7 days before surgery. -This would not apply to cancer patients who are prescribed Marinol or any other prescription form on marijuana or CBD. -exception Dr. Vega and Dr. Miller want their patients npo at midnight. Medications: Approved medications to take the morning of surgery with a sip of water: BP, HCTZ, Heart, thyroid, psych, seizure, and pain medications excluding NSAIDS. Use inhalers as prescribed. Please bring inhalers. Diabetes Please follow up with the provider that manages your diabetes and how to prepare you for surgery. If you are taking the following medications for Type 2 diabetes: Canagliflozin (INVOKANA), dapagliflozin (FARXIGA), and empagliflozin (JARDIANCE) should each be discontinued at least 3 days before scheduled surgery. Ertugliflozin (STEGLATRO) should be discontinued at least four days before scheduled surgery. Bring your Glucometer to [facility] if you are scheduled in [place] for [place]. If you have a stimulator, implant or pump that requires a remote please bring the remote with you day of surgery. Erectile dysfunction: If you take any medications for erectile dysfunction- Cialis (Tadalafil), Levitra, Staxyn, (Vardenafil), Viagra (Sildenenafil). Please do not take these for 48 hours before surgery. Pain Medications: Tylenol for pain as needed and if you are not allergic to. Medications to be taken with small amount of fluid on the morning of surgery: If you start any new medications after today's visit, please contact the surgeon's office. Important Reminders: - If you use CPAP/BIPAP, bring the machine with you to the surgery center. - If you are prescribed inhalers for breathing, continue using them AND bring them to the surgery center. - Candy, mints, gum and tobacco products are NOT permitted the morning of surgery. - Hearing aids, dentures and glasses may be worn the morning of surgery. - NO jewelry, body piercings, makeup, hairpins or contacts are to be worn the day of surgery. -Oral hygiene and a shower or bath is required the evening before or the morning of surgery. Use the Daions body wash supplied to you along with the instruction. - NO lotion, creams, powders or deodorants on the skin the day of surgery -Wear loose, comfortable clothing that will accommodate bandages. -Your length of stay will be determined by your surgeon - You will need to have someone else (Family or friend) drive you home once discharged from the hospital. You are not allowed to drive yourself home after surgery. - YOU MUST HAVE A RESPONSIBLE LUNCH TRUCK OPERATOR TAKE YOU HOME. A HEAD STOCK OPERATOR, CAB OR UBER LUNCH TRUCK OPERATOR CANNOT BE MADE A RESPONSIBLE LUNCH TRUCK OPERATOR. - We recommend that a responsible person stays with you overnight to take care of you. - You cannot stay in a hotel alone after outpatient surgery. You will not be permitted to have your surgery, if you do not have someone to take care of you. CCAG: Given COVID 19 pandemic, one visitor is allowed in the hospital. They may wait in the surgery waiting room while you are in surgery but must wear a mask. Only one visitor will be permitted to visit you while your admitted after surgery. If you develop symptoms such as a fever, cold, or flu, or have other changes to your health within TWO DAYS of scheduled surgery or the morning of surgery, please contact the surgery center above. Personal Belongings: - Leave ALL valuables and money at home or with family members. - You will need a form of ID and insurance card to check in the morning of surgery. - You will have to wear a hospital gown during your stay but if you wish to bring undergarments for after surgery you may. Ambulatory surgery center [place]- orthopedic patients needing a walker should bring the walker into the building day of surgery. Orthopedic patients having surgery [facility] listed as outpatient should bring their walker into the building. Orthopedic patients having surgery [facility] listed as to be admitted should leave their walkers in the car or with a family member. FRANNIE Ford 01/26/22 documented in this encounter [facility] 01-21-2022 History of Present illness Narrative January 21, 2022 1:18 PM Called and spoke to patient. Patient scheduled for CT in [place] on Monday01/26/22 at 1:00 pm. Can patient wait to have surgery on 02/10/22 or does he need to be added before that? Please advise Rama Mauro) documented in this encounter [facility] 01-21-2022 Procedure note Procedure(s): CYSTOSCOPY Pre-Procedure Diagnose(s): Gross hematuria Post-Procedure Diagnose(s): Gross hematuria CYSTOSCOPY PROCEDURE NOTE: Adrian Aponte Jr. is a 51 year old male who presents with hematuria gross for cystoscopy. Pt ID verified with patient: Yes Procedure verified with patient: Yes Procedure confirmed with physician and production support analyst: Yes Sign In History and Physical Exam reviewed and is unchanged. . Informed Consent Discussed: Yes. Risks, benefits, alternatives and personnel discussed with patient who consents to proceed. Sign in Communication: Completed Time Out: Team Confirms the Correct Patient, Correct Procedure; Cystoscopy, Correct Site and Site Marking, Correct Position (if applicable). Affirmation of Time Out: Yes Sign Out: Sign Out Discussion: Completed Physician: Daniela Cruz DO A urinalysis was performed revealing no evidence of infection. The benefits, risks, alternatives of the cystoscopy procedure and personnel were discussed with the patient. The verbal consent was obtained and the patient agrees to proceed. Procedure: The patient was placed on the procedure table in the supine position and prepped and draped in the usual sterile fashion. 2% Lidocaine Jelly was placed per urethra as an anesthetic in the standard fashion. Once adequate local anesthesia was achieved, the tip of the flexible cystoscope was carefully placed into the urethra under direct visual guidance. The scope was negotiated through the pendulous urethra to the level of the bulbar urethra with no evidence of stricture. The verumontanum came into view and the scope was negotiated through the prostatic urethra which showed evidence of bi lobar occlusive disease. The bladder was entered and careful morales endoscopy was carried out. The posterior, superior and lateral coyle and dome of the bladder were all well visualized and the scope was retroflexed upon itself. The findings were consistent with possible recurrence at the bed of previous resection. At the conclusion of the procedure, the flexible cystoscope was removed atraumatically. The patient tolerated the procedure without complications. Patient was given standard post-procedure instructions, and was directed to complete the course of oral antibiotics and increase oral fluid intake as directed. ASSESSMENT/PLAN: Bladder Cancer - Positive urine cytology - Large bladder mass, left lateral wall S/P TURBT with MITOMYCIN on 10/04/18 HG T1 No muscle present Re-staging TURBT in [place] - negative malignancy Completed BCG induction - 6 treatments - 02/22/19 Completed BCG Maintenance # 1 - 3 treatments - 08/26/19 Completed BCG Maintenance course # 2 - 3 treatments - 02/28/20 Completed BCG Maintenance course # 3 - 3 treatments - 12/03/20 Cystoscopy negative 04/08/21 (small area of erythema) Urine cytology was negative. Cystoscopy 10/21/21 with increasing erythema and possible tumor recurrence. S/P Cysview, TURBT and gemcitabine instillation - 11/11/21 Low Grade Ta recurrence found. Schedule for Maintenance BCG but continues to have gross hematuria with clots. Cysto today with possible recurrence - Needs repeat TURBT now. He is planning another RV trip from April to September. CT Urogram November 2020 - negative. will repeat at this time. Tobacco, process of quitting with chantix Hx of PE and DVT, on xaralto, will need to hold for 3-5 days prior Tobacco cessation with Chantix Daniela Cruz DO documented in this encounter [facility] 01-20-2022 Nurse Note AMBULATORY CYSTOSCOPY PROCEDURE PREOPERATIVE/PROCEDURAL VERIFICATION: Patient verified by: Name and Date of UNIVERSAL PROTOCOL / SAFETY CHECKLIST Procedure to be Performed: Cystoscopy Sign In: A Moment of CARE was completed. Personnel directly involved with the procedure wore the appropriate PPE (Personal Protective Equipment). No special equipment needed. Patient/Surrogate Stated/Verified: PATIENT VERIFIED(optional for EMERGENT procedures): Patient name, Date of , Relevant allergies, and The intended procedure Time Out Communication: Intended patient and procedure match the source documents. Consent documented and matches the intended procedure. No relevant labs, photos, and/or imaging studies were applicable for review. No correct side/site applicable for marking and visibility. Medications required for procedure verified. No fire risk assessment and interventions applicable. No implant(s) inserted. Sign Out: SIGN OUT (optional for EMERGENT procedures): No specimen collected. Evert Brownlee Ma Medications and allergies reviewed and updated. Latex Allergy:No Pre-Procedure Antibiotics: Keflex 500 mg orally given during visit @ 15:00 pm , by Evert Brownlee Ma Pre-Procedure Vital Signs: BP Blood pressure 122/85, pulse 83, resp. rate 18, height 180.3 cm (5' 11 ), weight (!) 163.3 kg (360 lb). Current pain intensity is 0 on a scale of 0-10. Patient Prepped with Betadine Scrub to perineum and placement of sterile drape. Anesthetic Given: 10cc 2% Lidocaine Jelly into Urethra. Instruction sheet given and reviewed: Yes Patient verbalizes understanding: Yes Post- procedure Vital Signs: B/P: 147/88 P: 88 R:16 Pain Ratin on a scale of 0 to 10. Specimens: None Nurse: Evert Brownlee Ma documented in this encounter [facility] 12-31-2021 Miscellaneous Notes Patient urine culture clear but patient continues to have visible blood in urine. Patient added on for cysto on 01/20 Urine culture to be checked and cysto Jan 20 if needed Patient calls with complaints of bleeding with urination. Patient states that this is different every time. States the urine is different in color and is concerned and is wondering if he needs to be re-examined by the physician. This RN spoke with Dr Cruz and patient instructed to get a urine culture to rule out infection. Patient to go have this done later today and will await results and plan of care. documented in this encounter [facility] 11-18-2021 History of Present illness Narrative Pended orders for patient for get Gemzar 1000 mg x 6 weeks documented in this encounter [facility] 11-02-2021 Instructions Muna Norris APRN.[employer] - 11/02/2021 10:27 AM EDT PATIENT PREOPERATIVE INSTRUCTIONS Your surgeon has scheduled for your procedure at this surgery center: Dr. Cruz has scheduled you for your procedure at this surgery center [facility]: [phone], [address] [id number] Enter the hospital through the main entrance and proceed directly to the Surgery Welcome Center. As you enter the Surgery Welcome Center and sign in with the customer service receptionist, we may ask for your photo ID and insurance information. As surgery times and preparations for surgery vary with each patient, you may be taken out of order in which you registered. Please read below carefully for your personalized instructions. Arrival Time for Surgery: DATE: 11/11/21 OR TIME: 1130 CHECK IN TIME: 0930 This allows enough time for pre-surgical registration, anesthesia personnel and to be prepared for your surgery. If your surgeon has given you another time that is not listed here, please call the surgeon office to clarify the time. Unfortunately, emergencies or cancellations cannot be predicted and can affect your estimated surgery time. If this happens to you, we appreciate your patience. We will make every attempt to keep you and your family informed of changes as they occur. Due to the rise in covid please keep in contact with your surgeon for any concerns regarding changes and delays about your surgery. Dietary Restrictions: - Nothing to eat or drink after midnight. You may have 12 ounces of clear liquids ( water, Gatorade, apple juice, carbonated beverage, clear tea or black coffee) until 4 hours before your scheduled surgery. This is important because if you do, your surgery may have to be cancelled Blood Thinning Medications: - Stop NSAIDS (Ibuprofen, Advil, Aleve, Motrin, Celebrex, Mobic, voltaren, diclofenac etc.) 7 days before surgery, as directed by your surgeon. You may take Tylenol (Acetaminophen) or any of your pain medications that do not contain aspirin or NSAIDS as needed. --If you take any of the following blood thinners: (Aspirin , Coumadin, Plavix, Eliquis, Pradaxa, Xarelto, Lovenox, Brilinta, Effient, Savaysa, Arixtra, etc ), PLEASE CONTACT YOUR SURGEON AND THE PHYSICIAN WHO PRESCRIBES IT FOR YOU IN ORDER TO GET PERIOPERATIVE INSTRUCTIONS SOON POSSIBLE. - Stop Vitamin E, fish oil, multivitamins, Marijuana, CBD oil and other over the counter herbals and dietary supplements 7 days before surgery. Medications: Approved medications to take the morning of surgery with a sip of water: BP, HCTZ, Heart, thyroid, psych, seizure, flomax , antacids and pain medications excluding NSAIDS. Use inhalers as prescribed. Please bring inhalers. Diabetes Please follow up with the provider that manages your diabetes and how to prepare you for surgery. If you are taking the following medications for Type 2 diabetes: Canagliflozin (INVOKANA), dapagliflozin (FARXIGA), and empagliflozin (JARDIANCE) should each be discontinued at least 3 days before scheduled surgery. Ertugliflozin (STEGLATRO) should be discontinued at least four days before scheduled surgery. If you are having surgery at the [facility], please bring your glucometer Pain Medications: You may take tylenol for pain Medications to be taken with small amount of fluid on the morning of surgery: * REFER TO MEDICATION LISTED PROVIDED WITH YOUR AFTER VISIT SUMMARY . If you start any new medications after today's visit, please contact the surgeon's office. Important Reminders: - If you use CPAP/BIPAP, it is recommended that you bring the machine with you to the surgery center. - If you are prescribed inhalers for breathing, continue using them AND bring them to the surgery center. - if you have a stimulator, implant or pump that requires a remote please bring the remote with you day of surgery. - Candy, mints, gum and tobacco products are NOT permitted the morning of surgery. - Hearing aids, dentures and glasses may be worn the morning of surgery. - NO jewelry, body piercings, makeup, hairpins or contacts are to be worn the day of surgery. If you have jewelry that can not be removed, you must call the surgeon's office and let the surgeon advise you on how to proceed. -Oral hygiene and a shower or bath is required the evening before or the morning of surgery. - NO lotion, creams, powders or deodorants on the skin the day of surgery -Wear loose, comfortable clothing that will accommodate bandages. -Your length of stay will be determined by your surgeon - No Covid vaccines with in 72 hours of your surgery. - You will need to have someone else (Family or friend) drive you home once discharged from the hospital. You are not allowed to drive yourself home after surgery. - YOU MUST HAVE A RESPONSIBLE LUNCH TRUCK OPERATOR TAKE YOU HOME. A HEAD STOCK OPERATOR, CAB OR UBER LUNCH TRUCK OPERATOR CANNOT BE MADE A RESPONSIBLE LUNCH TRUCK OPERATOR. - We recommend that a responsible person stays with you overnight to take care of you. - You cannot stay in a hotel alone after outpatient surgery. You will not be permitted to have your surgery, if you do not have someone to take care of you. CCAG: Each visitor is allowed two visitors (age18+) The visitor may be different each day. Visitors can only enter the building once each day. Visitors cannot leave the building and then return for a separate visit later that same day. Visitors must keep their masks on while inside a patient s room, whether or not the visitor is vaccinated and whether or not the patient is COVID-19 positive. If visitors do not follow [facility] masking guidelines, caregivers can ask them to leave the facility and restrict their visitation privileges. For support, contact Cherelle at [phone] or [email or web address]. The visitor will be allowed to stay with the patient prior to going to the surgery or procedure. Due to limited seating and social distancing, we may ask you to wait outside of the waiting room during surgery. No visitors are permitted in the recovery room. Post surgery, the surgeon will call the visitor for the update with the exception of endoscopy patients. The visitor will be called by the PACU staff for discharge instructions and will then instruct the visitor for brick picker directions Visitors who have tested positive for COVID-19 are permitted to visit a patient if it has been at least 10 days since testing positive. If a visitor has been exposed to someone who tested positive for COVID-19: If they are not fully vaccinated, they can visit a patient 14 days after exposure. If they are vaccinated and asymptomatic, they can visit a patient with proof of vaccination. If you develop symptoms such as a fever, cold, or flu, or have other changes to your health within TWO DAYS of scheduled surgery or the morning of surgery, please contact the surgery center above. Personal Belongings: - Leave ALL valuables and money at home or with family members. - You will have to wear a hospital gown during your stay but if you wish to bring undergarments for after surgery you may. Any questions regarding length of surgery, surgery procedure and post operative care should be be addressed to your surgeon Anesthesia suggested reading: Candace Olvera, Prepare for Surgery, Heal Faster: A Guide of Mind Body Techniques ([place], [place]; [employer]: Fourth Edition) 2011 Muna Norris APRN.CNP 11/02/21 documented in this encounter [facility] 11-02-2021 History and physical note HISTORY AND PHYSICAL EXAMINATION SERVICE DATE: 11/02/2021 SERVICE TIME: 10:16 AM PRIMARY CARE PHYSICIAN: London Lou MD REASON FOR VISIT: Adrian Aponte Jr. is a 51 year old male who is scheduled for Procedure(s): CYSTOSCOPY (N/A) CYSTOSCOPY W/CYSVIEW (N/A) RESECTION BLADDER TUMOR TRANSURETHRAL (N/A) INSTILL ANTICARCINOGENIC AGENT IN BLADDER, gemcitabine (N/A) at the request of Dr. Daniela Cruz for routine H&P. My final recommendation will be communicated back to the requesting physician by way of shared medical record or letter. 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 Pulmonary Embolism (Hcc) Tobacco Dependence in Remission Tricuspid Valve Regurgitation Type 2 Diabetes Mellitus (Hcc) Bilateral Leg Edema Morbidly Obese (Hcc) 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 is a 51 year old male present in presurgical testing.He lives at home with family.He states he had hematuria for 3 years. He was sent to see Dr. Cruz. He had biopsy and he was told he had bladder cancer. He had the bladder tumor removed and had the area scrapped again 2 weeks later. He had a cystoscopy in the office and he was told he still had some cancer cells. He is having the cells removed and installing chemotherapy. He has urgency. He denies frequency, burning and blood in the urine. He rates the pain 3/10.Surgery was recommended and he agrees to proceed as planned. He is scheduled for CYSTOSCOPY (N/A) CYSTOSCOPY W/CYSVIEW,RESECTION BLADDER TUMOR TRANSURETHRAL, INSTILL ANTICARCINOGENIC AGENT IN BLADDER, gemcitabine on 11/11/[address] Cruz. Surgery will be at [facility] OR Scheduled as an out patient Have you been in contact with someone with known coronavirus/Covid 19? no Have you had surgery or pre testing at [facility] in the past 3 years? no REVIEW OF SYSTEMS: General: +morbid obesity. No weight loss, malaise or fevers. Neurological: Positive for: headaches. Negative for: seizures and strokes. Respiratory: Positive for: asthma, tobacco use, obstructive sleep apnea and CPAP/BiPAP compliant. Negative for: COPD. Cardiovascular: + cardiac arrest due to blood clot 2017. Seen by Dr. Angela in [place]. + secondary pulmonary htn. Positive for: DVT/PE, hypertension and murmur/valvular heart disease (+ tricuspid valve regurgitation) Negative for: AICD/PPM, chest pain, CHF, recent SC and open heart surgery. GI: Positive for: abdominal pain and GERD Negative for: nausea and vomiting. : + bladder cancer Positive for: BPH and hematuria. Negative for: dysuria, frequent urination and urgency. Endocrine: Positive for: diabetes mellitus. Negative for: hypothyroidism. Hematology: No history of bleeding or clotting disorder. Patient is not taking anti-coagulation or platelet medications. No history of hematological symptoms or problems. Oncology: + bladder cancer Psych: Positive for: anxiety and depression. Musculoskeletal: + neuroopathy Positive for: back pain and joint pain (+ knee pain ). Skin: Negative for lesions, rash and itching. PAST MEDICAL HISTORY Diagnosis Date Anxiety and depression Arthritis Bilateral leg edema BPH (benign prostatic hyperplasia) Diabetic neuropathy (HCC) DM (diabetes mellitus) (HCC) GERD (gastroesophageal reflux disease) HTN (hypertension) Hx of blood clots 01/2016 Blood clot in lung and behind right knee cardiac arrest due to lack of oxygen Hypertension Intervertebral disc disorder with radiculopathy of lumbar region Malignant neoplasm of urinary bladder (HCC) Morbidly obese (HCC) KHALIF (obstructive sleep apnea) + bipap PE (pulmonary thromboembolism) (HCC) with acute cor pulmonale PAST SURGICAL HISTORY Procedure Laterality Date APPENDECTOMY HX ARTHRP ACETBLR/PROX FEM PROSTC AGRFT/ALGRFT Right 03/2015 CYSTO W/CALIBRAT &/DILAT 2019 fulgeration CYSTO W/CALIBRAT &/DILAT multiple including BCG, TURBT FOOT LEFT OP SURGERY Left 2017 KNEE ARTHROSCOPY/SURGERY Right 01/2016 LUMBAR 2019 Lumbar Ablation RIGHT HEART CATHERIZATION 2014 Negative for CAD FAMILY HISTORY Problem Relation Age of Onset other (Heart age 67) Mother other (Heart Attack age 64) Father Alzheimer's Disease Paternal Grandmother Diabetes Other Social History Tobacco Use Smoking status: Light Tobacco Smoker Packs/day: 1.50 Years: 30.00 Pack years: 45.00 Types: Cigarettes Last attempt to quit: 09/09/2018 Years since quittin.1 Smokeless tobacco: Former User Types: Chew Quit date: 1988 Tobacco comment: pt has not smoked x 2 days 10/29/21 Vaping Use Vaping Use: Never used Substance Use Topics Alcohol use: Yes Alcohol/week: 5.0 standard drinks Types: 2 Cans of Beer (12oz) per week Comment: weekly Drug use: No Prior to Admission medications as of 11/02/21 0959 Medication Sig Last Dose Taking albuterol HFA (PROAIR HFA) 90 mcg/actuation inhaler Inhale 2 Puffs as instructed every 4 hours as needed. Yes acetaminophen (TYLENOL) 325 mg tablet Take 650 mg by mouth every 6 hours as needed. Yes FLUoxetine HCl 20 mg tablet Take 20 mg by mouth once daily. varenicline (CHANTIX) 1 mg tablet Take 1 tablet by mouth twice daily. tamsulosin (FLOMAX) 0.4 mg Take 1 capsule by mouth daily at bedtime for 90 doses. gabapentin 600 mg Tb24 Take 1 tablet by mouth three times daily with meals. metFORMIN ER (FORTAMET) 1,000 mg 24 hr tablet Take 1,000 mg by mouth daily with breakfast. furosemide (LASIX) 40 mg tablet Take 40 mg by mouth once daily. metaxalone (SKELAXIN) 800 mg tablet Take 800 mg by mouth three times daily as needed. oxybutynin (DITROPAN) 5 mg tablet Take 1 tablet by mouth three times daily. For bladder spasm. MUST stop taking 24 hrs prior to catheter removal Patient taking differently: Take 5 mg by mouth as needed. For bladder spasm. MUST stop taking 24 hrs prior to catheter removal losartan (COZAAR) 50 mg tablet Take 50 mg by mouth once daily. oxyCODONE-acetaminophen (PERCOCET) 5-325 mg tablet Take 1 tablet by mouth every 6 hours as needed. XARELTO 20 mg tablet Take 20 mg by mouth once daily. atenolol (TENORMIN) 100 mg tablet Take 50 mg by mouth twice daily. omeprazole (PRILOSEC) 20 mg capsule Take by mouth twice daily. No medication comments found. ALLERGIES Allergen Reactions Quinine Hives Morphine Itching IV burning and itching no lidocaine allergy Objective PHYSICAL EXAM: General: alert and oriented and healthy appearance. Pertinent negatives noted - not distressed. Skin: normal color, no rash or lesions. HEENT: Cardiovascular: regular rate and rhythm, normal S1 and S2, no rub, murmurs, or gallop. Respiratory: No chest wall deformity or tenderness. Abdomen: Extremities: no deformity, no edema or tenderness, no joint swelling or clubbing. Neurological: normal cognition and motor skills. Gait normal. No weakness or sensory deficit. no current infections including dental PAIN ASSESSMENT: VITALS: BP 127/84 Pulse 83 Temp 98.1 Resp 18 Ht 5' 11 (1.80m) Wt 377 lb (171.0kg) SpO2 96% BMI 52.60 kg/(m^2). no oxygen used Diagnostic tests reviewed for today's visit: Lab Value Units Date High Low HB No results within date range. HCT No results within date range. WBC No results within date range. PLT No results within date range. NA No results within date range. K No results within date range. GLUC No results within date range. BUN No results within date range. CREAT No results within date range. PTSEC No results within date range. INR No results within date range. APTT No results within date range. ALT No results within date range. AST No results within date range. TBILI No results within date range. TSH No results within date range. Lab Value Units Date High Low HCGQT No results within date range. UHCG No results within date range. HCG, BODY* No results within date range. Lab Value Units Date High Low ABORHD No results within date range. ABSCREEN No results within date range. No results found for: HBA1C No results found for this or any previous visit (from the past 8760 hour(s)). No results found for this or any previous visit (from the past 12754 hour(s)). Assessment No problem-specific Assessment & Plan notes found for this encounter. Burns Activity Status Index: METS: Climb a flight of stairs or walk up a hill (5.50 METs) DASI Score: 5.5 Patient denies any chest pain or undue shortness of breath with the above physical activity. ANESTHESIA FINDINGS: Intubation History: No history of difficult intubation. No abnormal airway history Significant Anesthesia Considerations: had cardiac arrest during out patient surgery due to blood clot. no knonw cause for the blood clot potential postop nausea/vomiting Airway History: No history of difficult airway No abnormal airway history Adult - Exam and Plan Prepared for Surgery: CONSULTS: The following consults have been initiated at this time: primary care/internal medicine (pending ). Planned Anesthetic: The Following Tests/Procedures Have Been Initiated: No orders of the defined types were placed in this encounter. Implantable Devices: right total hip. hardware right knee, left foot hardware Patient has the following medical conditions which may affect caroline-operative course Diabetes - last aic 5.1. treated with Trulicity with metformin. 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 King bustillos HTN - Well controlled. Treated with oral medications. Cardiology Dr. Julio César bustillos Morbid Obesity KHALIF - Patient is using CPAP/BIPAP Advised to bring CPAP/BIPAP machine to hospital Pertinent cardiac testing : Last echo- no echo. patient does not have documented aortic stenosis Anticoagulation used: yes Name: Xarelto Reason:- hx pe Managed by: tp stop 3 days prior to surgery instructions given to patient by surgeon/PCP/croze cutter helper: Pre op instructions from BUG TRIMMER are included if patient instructions under note lab Assessment/Plan Malignant neoplasm of urinary bladder, unspecified site PLAN Planned Procedure: Procedure(s): CYSTOSCOPY (N/A) CYSTOSCOPY W/CYSVIEW (N/A) RESECTION BLADDER TUMOR TRANSURETHRAL (N/A) INSTILL ANTICARCINOGENIC AGENT IN BLADDER, gemcitabine (N/A) The Following Tests/Procedures Have Been Initiated: Ordered by surgeon- urine cx 10/21/21 Instructions Given to Patient: Instructions located in the after visit summary. Patient given verbal and written preop instructions and voices comprehension and compliance. SIGNATURE: Muna Norris APRN.CNP PATIENT NAME: Adrian Aponte Jr. DATE: November 02, 2021 TIME: 10:00 AM PAGER/CONTACT #: documented in this encounter [facility] 10-21-2021 Nurse Note AMBULATORY CYSTOSCOPY PROCEDURE PREOPERATIVE/PROCEDURAL VERIFICATION: Patient verified by: Name and Date of UNIVERSAL PROTOCOL / SAFETY CHECKLIST Procedure to be Performed: Cystoscopy Sign In: A Moment of CARE was completed. Personnel directly involved with the procedure wore the appropriate PPE (Personal Protective Equipment). Patient/Surrogate Stated/Verified: PATIENT VERIFIED(optional for EMERGENT procedures): Patient name, Date of , Relevant allergies and The intended procedure Time Out Communication: Intended patient and procedure match the source documents. Consent documented and matches the intended procedure. Sign Out: SIGN OUT (optional for EMERGENT procedures): All specimen containers correctly labeled. Medications and allergies reviewed and updated. Latex Allergy:No Pre-Procedure Antibiotics: Keflex 500 mg orally given during visit @ 1130 , by Katya Moore Pre-Procedure Vital Signs: BP BP 150/97 Pulse 81 Resp 20 Ht 180.3 cm (5' 11 ) Wt (!) 168.7 kg (372 lb) BMI 51.88 kg/m Patient Prepped with Betadine Scrub to perineum and placement of sterile drape. Anesthetic Given: 10cc 2% Lidocaine Jelly into Urethra. Instruction sheet given and reviewed: Yes Patient verbalizes understanding: Yes Post- procedure Vital Signs: B/P: 161/99 P: 81 R:20 Pain Ratin on a scale of 0 to 10. Specimens: obtained: Urine Culture and Cytology. Did well but needs to go to OR for findings. at bedside. Dr. Cruz also ordered generic Chantix. Nurse: Gabrielle Palma RN documented in this encounter [facility] 10-21-2021 Procedure note Procedure(s): CYSTOSCOPY Pre-Procedure Diagnose(s): Malignant neoplasm of urinary bladder, unspecified site (HCC) Post-Procedure Diagnose(s): Malignant neoplasm of urinary bladder, unspecified site (HCC) CYSTOSCOPY PROCEDURE NOTE: Adrian Aponte Jr. is a 50 year old male who presents with follow up bladder tumor for cystoscopy. Pt ID verified with patient: Yes Procedure verified with patient: Yes Procedure confirmed with physician and production support analyst: Yes Sign In History and Physical Exam reviewed and is unchanged. . Informed Consent Discussed: Yes. Risks, benefits, alternatives and personnel discussed with patient who consents to proceed. Sign in Communication: Completed Time Out: Team Confirms the Correct Patient, Correct Procedure; Cystoscopy, Correct Site and Site Marking, Correct Position (if applicable). Affirmation of Time Out: Yes Sign Out: Sign Out Discussion: Completed Physician: Daniela Cruz DO A urinalysis was performed revealing no evidence of infection. The benefits, risks, alternatives of the cystoscopy procedure and personnel were discussed with the patient. The verbal consent was obtained and the patient agrees to proceed. Procedure: The patient was placed on the procedure table in the supine position and prepped and draped in the usual sterile fashion. 2% Lidocaine Jelly was placed per urethra as an anesthetic in the standard fashion. Once adequate local anesthesia was achieved, the tip of the flexible cystoscope was carefully placed into the urethra under direct visual guidance. The scope was negotiated through the pendulous urethra to the level of the bulbar urethra with no evidence of stricture. The verumontanum came into view and the scope was negotiated through the prostatic urethra which showed evidence of bi lobar occlusive disease. The bladder was entered and careful morales endoscopy was carried out. The posterior, superior and lateral coyle and dome of the bladder were all well visualized and the scope was retroflexed upon itself. The findings were consistent with punctate erytema on left lateral wall - increase in size from last cysto. Flat papillary lesions present. At the conclusion of the procedure, the flexible cystoscope was removed atraumatically. The patient tolerated the procedure without complications. Patient was given standard post-procedure instructions, and was directed to complete the course of oral antibiotics and increase oral fluid intake as directed. ASSESSMENT/PLAN: Bladder Cancer Original Gross hematuria Positive urine cytology Large bladder mass, left lateral wall S/P TURBT with MITOMYCIN on 10/04/18 HG T1 No muscle present Re-staging TURBT in [place] - negative malignancy Tobacco, process of quitting with chantix Hx of PE and DVT, on xaralto, will need to hold for 3-5 days prior Completed BCG induction 02/22/19 Completed BCG Maintenance X 3 weeks (1 course) - 08/26/19 Completed BCG Maintenance course # 2 X 3 treatments - 02/28/20 Completed BCG Maintenance course # 3 - 3 treatments - 12/03/20 Cystoscopy negative 04/08/21 (small area of erythema) Urine cytology was negative. Today with increasing erythema and possible tumor recurrence. Needs Cysview, TURBT and gemcitabine instillation. Continue Maintenance BCG after TURBT. Cystoscopy every 3-6 months He is planning another RV trip from April to September. CT Urogram November 2020 - negative. Tobacco cessation with Chantix Daniela Cruz DO documented in this encounter [facility] 10-21-2021 Instructions Sheila Moore LPN - 10/21/2021 11:02 AM EDT [facility] Department of Urology After your Cystoscopy You have undergone a cystoscopy. Your doctor has inserted a telescope into your urinary bladder through your urethra to view the inside of your bladder. WHAT TO EXPECT: Possible burning during urination and /or blood tinged urine. WHAT TO DO: Resume normal activity and medications. Drink 6-8 glasses of fluid each day for 3 days to help flush your urinary system. MEDICATIONS: You were given Keflex, a preventative antibiotic, prior to the procedure. WHEN TO CALL DOCTOR: IF you have a fever over 100 degrees Farenheit. IF you are unable to urinate IF blood clots form in your urine IF your urine becomes very bloody and does not clear with drinking extra fluids. Please call [facility] office at [phone] M-F 8:00 am to 5:00pm With any questions you may have and ask for the Triage Nurse After 5:00 pm or weekends [phone] Thank you 04/17/13 KW documented in this encounter [facility] 09-18-2018 History of Past i llness Narrative Problem Noted Date Resolved Date Cardiac arrest 09/18/2018 04/20/2019 Last Assessment & Plan: Assessment: Related to + PE/DVT in 2015 while undergoing Right Knee surgery. Restrictive lung disease 09/18/2018 019 Last Assessment & Plan: Follows Sonu Astorga tool room supervisor, inhaler PRN, records and imaging requested Other terminal operator (current) drug therapy 7 02/14/2019 H/O respiratory system disease 01/29/2016 0 02/14/2019 documented as of this encounter (statuses as of 10/21/2021) [facility] History of Past illness Narrative* Problem Noted Date Resolved Date Cardiac arrest 09/18/2018 04/20/2019 Last Assessment & Plan: Assessment: Related to + PE/DVT in 2015 while undergoing Right Knee surgery. Restrictive lung disease 09/18/2018 019 Last Assessment & Plan: Follows Sonu Astorga tool room supervisor, inhaler PRN, records and imaging requested Other terminal operator (current) drug therapy 7 02/14/2019 H/O respiratory system disease 01/29/2016 0 02/14/2019 documented as of this encounter (statuses as of 11/02/2021) [facility] History of Past illness Narrative* Problem Noted Date Resolved Date Cardiac arrest 09/18/2018 04/20/2019 Last Assessment & Plan: Assessment: Related to + PE/DVT in 2015 while undergoing Right Knee surgery. Restrictive lung disease 09/18/2018 019 Last Assessment & Plan: Follows Sonu Astorga tool room supervisor, inhaler PRN, records and imaging requested Other terminal operator (current) drug therapy 7 02/14/2019 H/O respiratory system disease 01/29/2016 0 02/14/2019 documented as of this encounter (statuses as of 11/18/2021) [facility] History of Past illness Narrative* Problem Noted Date Resolved Date Cardiac arrest 09/18/2018 04/20/2019 Last Assessment & Plan: Assessment: Related to + PE/DVT in 2015 while undergoing Right Knee surgery. Restrictive lung disease 09/18/2018 019 Last Assessment & Plan: Follows Sonu Astorga tool room supervisor, inhaler PRN, records and imaging requested Other chcf (current) drug therapy 7 02/14/2019 H/O respiratory system disease 01/29/2016 0 02/14/2019 documented as of this encounter (statuses as of 12/31/2021) [facility] History of Past illness Narrative* Problem Noted Date Resolved Date Cardiac arrest 09/18/2018 04/20/2019 Last Assessment & Plan: Assessment: Related to + PE/DVT in 2015 while undergoing Right Knee surgery. Restrictive lung disease 09/18/2018 019 Last Assessment & Plan: Follows Sonu Astorga tool room supervisor, inhaler PRN, records and imaging requested Other chcf (current) drug therapy 7 02/14/2019 H/O respiratory system disease 01/29/2016 0 02/14/2019 documented as of this encounter (statuses as of 01/21/2022) [facility] History of Past illness Narrative* Problem Noted Date Resolved Date Cardiac arrest 09/18/2018 04/20/2019 Last Assessment & Plan: Assessment: Related to + PE/DVT in 2015 while undergoing Right Knee surgery. Restrictive lung disease 09/18/2018 019 Last Assessment & Plan: Follows Sonu Astorga tool room supervisor, inhaler PRN, records and imaging requested Other terminal operator (current) drug therapy 7 02/14/2019 H/O respiratory system disease 01/29/2016 0 02/14/2019 documented as of this encounter (statuses as of 01/27/2022) [facility] History of Past illness Narrative* Problem Noted Date Resolved Date Cardiac arrest 09/18/2018 04/20/2019 Last Assessment & Plan: Assessment: Related to + PE/DVT in 2015 while undergoing Right Knee surgery. Restrictive lung disease 09/18/2018 019 Last Assessment & Plan: Follows Sonu Astorga tool room supervisor, inhaler PRN, records and imaging requested Other chcf (current) drug therapy 7 02/14/2019 H/O respiratory system disease 01/29/2016 0 02/14/2019 documented as of this encounter (statuses as of 02/22/2022) [facility] History of Past illness Narrative* Problem Noted Date Resolved Date Cardiac arrest 09/18/2018 04/20/2019 Last Assessment & Plan: Assessment: Related to + PE/DVT in 2015 while undergoing Right Knee surgery. Restrictive lung disease 09/18/2018 019 Last Assessment & Plan: Follows Sonu Astorga tool room supervisor, inhaler PRN, records and imaging requested Other chcf (current) drug therapy 7 02/14/2019 H/O respiratory system disease 01/29/2016 0 02/14/2019 documented as of this encounter (statuses as of 03/03/2022) [facility] History of Past illness Narrative* Problem Noted Date Resolved Date Cardiac arrest 09/18/2018 04/20/2019 Last Assessment & Plan: Assessment: Related to + PE/DVT in 2015 while undergoing Right Knee surgery. Restrictive lung disease 09/18/2018 019 Last Assessment & Plan: Follows Sonu Astorga tool room supervisor, inhaler PRN, records and imaging requested Other chcf (current) drug therapy 7 02/14/2019 H/O respiratory system disease 01/29/2016 0 02/14/2019 documented as of this encounter (statuses as of 03/03/2022) [facility] History of Past illness Narrative* Problem Noted Date Resolved Date Cardiac arrest 09/18/2018 04/20/2019 Last Assessment & Plan: Assessment: Related to + PE/DVT in 2015 while undergoing Right Knee surgery. Restrictive lung disease 09/18/2018 019 Last Assessment & Plan: Follows Sonu Astorga tool room supervisor, inhaler PRN, records and imaging requested Other chcf (current) drug therapy 7 02/14/2019 H/O respiratory system disease 01/29/2016 0 02/14/2019 documented as of this encounter (statuses as of 03/10/2022) [facility] of Past illness Narrative* Problem Noted Date Resolved Date Cardiac arrest 09/18/2018 04/20/2019 Last Assessment & Plan: Assessment: Related to + PE/DVT in 2015 while undergoing Right Knee surgery. Restrictive lung disease 09/18/2018 019 Last Assessment & Plan: Follows Sonu Astorga tool room supervisor, inhaler PRN, records and imaging requested Other terminal operator (current) drug therapy 7 02/14/2019 H/O respiratory system disease 01/29/2016 0 02/14/2019 documented as of this encounter (statuses as of 03/17/2022) [facility] History of Past illness Narrative* Problem Noted Date Resolved Date Cardiac arrest 09/18/2018 04/20/2019 Last Assessment & Plan: Assessment: Related to + PE/DVT in 2015 while undergoing Right Knee surgery. Restrictive lung disease 09/18/2018 019 Last Assessment & Plan: Follows Sonu Astorga tool room supervisor, inhaler PRN, records and imaging requested Other terminal operator (current) drug therapy 7 02/14/2019 H/O respiratory system disease 01/29/2016 0 02/14/2019 documented as of this encounter (statuses as of 03/21/2022) [facility] History of Past illness Narrative* Problem Noted Date Resolved Date Cardiac arrest 09/18/2018 04/20/2019 Last Assessment & Plan: Assessment: Related to + PE/DVT in 2015 while undergoing Right Knee surgery. Restrictive lung disease 09/18/2018 019 Last Assessment & Plan: Follows Sonu Astorga tool room supervisor, inhaler PRN, records and imaging requested Other chcf (current) drug therapy 7 02/14/2019 H/O respiratory system disease 01/29/2016 0 02/14/2019 documented as of this encounter (statuses as of 03/24/2022) [facility] History of Past illness Narrative* Problem Noted Date Resolved Date Cardiac arrest 09/18/2018 04/20/2019 Last Assessment & Plan: Assessment: Related to + PE/DVT in 2015 while undergoing Right Knee surgery. Restrictive lung disease 09/18/2018 019 Last Assessment & Plan: Follows Sonu Astorga tool room supervisor, inhaler PRN, records and imaging requested Other chcf (current) drug therapy 7 02/14/2019 H/O respiratory system disease 01/29/2016 0 02/14/2019 documented as of this encounter (statuses as of 03/31/2022) [facility]04[facility]2019 History of Past illness Narrative* Problem Noted Date Resolved Date Cardiac arrest 09/18/2018 04/20/2019 Last Assessment & Plan: Assessment: Related to + PE/DVT in 2015 while undergoing Right Knee surgery. 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, inhaler PRN, records and imaging requested Other chcf (current) drug therapy 01/30/2017 02/14/2019 H/O respiratory system disease 01/29/2016 02/14/2019 documented as of this encounter (statuses as of 09/19/2023) [facility] Malignant neoplasm of urinary bladder, unspecified site (HCC)- Primary Acute cystitis with hematuria Acute cystitis [facility] Pre-op testing Preoperative examination, unspecified Malignant neoplasm of urinary bladder, unspecified site (HCC) Primary hypertension Unspecified essential hypertension Diabetes mellitus due to underlying condition with hyperosmolarity without coma, without long-term current use of insulin (HCC) Morbid obesity (HCC) Morbid obesity KHALIF (obstructive sleep apnea) Obstructive sleep apnea (adult) (pediatric) Malignant neoplasm of urinary bladder, unspecified site (HCC) [facility] 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)- Primary Malignant neoplasm of lateral wall of urinary bladder [facility] Diagnosis Gross [facility]uria- Primary [facility] Diagnosis Malignant neoplasm of urinary bladder, unspecified site (HCC)- Primary 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 [facility] Diagnosis Preop examination- Primary Preoperative examination, unspecified Malignant neoplasm of urinary bladder, unspecified site (HCC) [C67.9 (ICD-10-CM)] Chronic obstructive pulmonary disease, unspecified COPD type (HCC) [J44.9 (ICD-10-CM)] Type 2 diabetes mellitus without complication, unspecified whether terminal operator insulin use (HCC) [E11.9 (ICD-10-CM)] Hypertension, unspecified type [I10 (ICD-10-CM)] Morbid obesity (HCC) [E66.01 (ICD-10-CM)] Morbid obesity KHALIF (obstructive sleep apnea) [G47.33 (ICD-10-CM)] Obstructive sleep apnea (adult) (pediatric) Hx of blood clots [Z86.718 (ICD-10-CM)] Personal history of venous thrombosis and embolism Malignant neoplasm of urinary bladder, unspecified site (HCC) [facility] Diagnosis Malignant neoplasm of urinary bladder, unspecified site (HCC)- Primary [facility] Diagnosis Malignant neoplasm of urinary bladder, unspecified site (HCC)- Primary [facility] Diagnosis Malignant neoplasm of urinary bladder, unspecified site (HCC)- Primary [facility] Diagnosis 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)- Primary Malignant neoplasm of trigone of urinary bladder [facility] Diagnosis 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)- Primary Malignant neoplasm of trigone of urinary bladder [facility] Diagnosis 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 note* Diagnosis Malignant neoplasm of urinary bladder, unspecified site (HCC)- Primary documented in this encounter [facility] note* Diagnosis Malignant neoplasm of urinary bladder, unspecified site (HCC)- Primary documented in this encounter [facility] note* Diagnosis Malignant neoplasm of urinary bladder, unspecified site (HCC) documented in this encounter [facility] note* Diagnosis Malignant neoplasm of urinary bladder, unspecified site (HCC)- Primary documented in this encounter 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) Malignant neoplasm of lateral wall of urinary bladder Bladder mass Other specified disorders of bladder * Assessment & Plan Note - Angelito Hampton APRN.CNP - 10/04/2023 3:43 PM EDT Associated Problem(s): 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) Surgery scheduled * Assessment & Plan Note - Angelito Hampton APRN.CNP - 10/04/2023 2:53 PM EDT Associated Problem(s): Sleep apnea Compliant with BiPAP Follows by Pulmonology * Assessment & Plan Note - Angelito Hampton APRN.CNP - 10/04/2023 2:53 PM EDT Associated Problem(s): Gastro-esophageal reflux disease without esophagitis Controlled on PPI * Assessment & Plan Note - Angelito Hampton APRN.CNP - 10/04/2023 2:52 PM EDT Associated Problem(s): Hypertension Controlled on Losartan and lasix- instructed to hold the dos Atenolol - instructed to take the dos * Assessment & Plan Note - Angelito Hampton APRN.CNP - 10/04/2023 2:51 PM EDT Associated Problem(s): Pulmonary embolism (HCC) Patient reports s/p right knee surgery in 2016 - Patient reports having cardiac arrest with Cor pulmonale On Xarelto - instructed to follow surgeon instructions how to take before the surgery Follows by Pulmonology every year * Assessment & Plan Note - Angelito Hampton APRN.CNP - 10/04/2023 2:50 PM EDT Associated Problem(s): Type 2 diabetes mellitus (HCC) On trulicity - instructed to hold for 7 days before the surgery 09/12/23 A1C - 9.5 * Assessment & Plan Note - Angelito Hampton APRN.CNP - 10/04/2023 2:49 PM EDT Associated Problem(s): Obesity, Class III, BMI >= 40 BMI 54.6 * Assessment & Plan Note - Angelito Hampton APRN.CNP - 10/02/2023 7:26 AM EDT Associated Problem(s): Pre-op examination Medical conditions which may affect the perioperative course were address in today's visit. documented in this encounter [facility] note* Diagnosis Malignant neoplasm of urinary bladder, unspecified site (HCC) Bladder mass Other specified disorders of bladder documented in this encounter [facility] note* Diagnosis Bladder mass Other specified disorders of bladder documented in this encounter [facility] note* Diagnosis Malignant neoplasm of urinary bladder, unspecified site (HCC)- Primary documented in this encounter [facility] note* Diagnosis Type 2 diabetes mellitus without complication, with long-term current use of insulin (HCC)- Primary documented in this encounter 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) Malignant neoplasm of lateral wall of urinary bladder Hypertension, unspecified type Pulmonary embolism with acute cor pulmonale, unspecified chronicity, unspecified pulmonary embolism type (HCC) Deep vein thrombosis (DVT) of lower extremity, unspecified chronicity, unspecified laterality, unspecified vein (HCC) Other secondary pulmonary hypertension (HCC) Cardiomegaly Tricuspid valve insufficiency, unspecified etiology Bilateral leg edema Edema Type 2 diabetes mellitus with complication, with long-term current use of insulin (HCC) Obstructive sleep apnea (adult) (pediatric) Restrictive lung disease Other diseases of lung, not elsewhere classified Gastro-esophageal reflux disease without esophagitis Esophageal reflux Intervertebral disc disorder with radiculopathy of lumbar region Thoracic or lumbosacral neuritis or radiculitis, unspecified Anxiety disorder, unspecified type Major depressive disorder with single episode, remission status unspecified Tobacco dependence in remission Personal history of tobacco use, presenting hazards to health Morbidly obese (HCC) Morbid obesity Preoperative examination- Primary Preoperative examination, unspecified Rectal bleeding Hemorrhage of rectum and anus Intervertebral disc disorder with radiculopathy of lumbar region Thoracic or lumbosacral neuritis or radiculitis, unspecified Cardiac arrest (HCC) Cardiac arrest Other secondary pulmonary hypertension (HCC) Pulmonary embolism with acute cor pulmonale, unspecified chronicity, unspecified pulmonary embolism type (HCC) Gastro-esophageal reflux disease without esophagitis Esophageal reflux 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) Malignant neoplasm of lateral wall of urinary bladder Type 2 diabetes mellitus without complication, with long-term current use of insulin (HCC) Deep vein thrombosis (DVT) of lower extremity, unspecified chronicity, unspecified laterality, unspecified vein (HCC) Bilateral leg edema Edema Morbidly obese (HCC) Morbid obesity Hypertension, unspecified type Diabetic mononeuropathy associated with type 2 diabetes mellitus (HCC) Anxiety and depression Dysthymic disorder Dyspnea, unspecified type Sleep apnea, unspecified type Pre-op examination Preoperative examination, unspecified Obesity, Class III, BMI >= 40 Morbid obesity Type 2 diabetes mellitus without complication, with long-term current use of insulin (HCC) Pulmonary embolism with acute cor pulmonale, unspecified chronicity, unspecified pulmonary embolism type (HCC) Hypertension, unspecified type Gastro-esophageal reflux disease without esophagitis Esophageal reflux Sleep apnea, unspecified type 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) Malignant neoplasm of lateral wall of urinary bladder Hypertension, unspecified type Pulmonary embolism with acute cor pulmonale, unspecified chronicity, unspecified pulmonary embolism type (HCC) Deep vein thrombosis (DVT) of lower extremity, unspecified chronicity, unspecified laterality, unspecified vein (HCC) Other secondary pulmonary hypertension (HCC) Cardiomegaly Tricuspid valve insufficiency, unspecified etiology Bilateral leg edema Edema Type 2 diabetes mellitus with complication, with long-term current use of insulin (HCC) Obstructive sleep apnea (adult) (pediatric) Restrictive lung disease Other diseases of lung, not elsewhere classified Gastro-esophageal reflux disease without esophagitis Esophageal reflux Intervertebral disc disorder with radiculopathy of lumbar region Thoracic or lumbosacral neuritis or radiculitis, unspecified Anxiety disorder, unspecified type Major depressive disorder with single episode, remission status unspecified Tobacco dependence in remission Personal history of tobacco use, presenting hazards to health Morbidly obese (HCC) Morbid obesity Preoperative examination- Primary Preoperative examination, unspecified Rectal bleeding Hemorrhage of rectum and anus Intervertebral disc disorder with radiculopathy of lumbar region Thoracic or lumbosacral neuritis or radiculitis, unspecified Cardiac arrest (HCC) Cardiac arrest Other secondary pulmonary hypertension (HCC) Pulmonary embolism with acute cor pulmonale, unspecified chronicity, unspecified pulmonary embolism type (HCC) Gastro-esophageal reflux disease without esophagitis Esophageal reflux 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) Malignant neoplasm of lateral wall of urinary bladder Type 2 diabetes mellitus without complication, with long-term current use of insulin (HCC) Deep vein thrombosis (DVT) of lower extremity, unspecified chronicity, unspecified laterality, unspecified vein (HCC) Bilateral leg edema Edema Morbidly obese (HCC) Morbid obesity Hypertension, unspecified type Diabetic mononeuropathy associated with type 2 diabetes mellitus (HCC) Anxiety and depression Dysthymic disorder Dyspnea, unspecified type Sleep apnea, unspecified type Pre-op examination Preoperative examination, unspecified Obesity, Class III, BMI >= 40 Morbid obesity Type 2 diabetes mellitus without complication, with long-term current use of insulin (HCC) Pulmonary embolism with acute cor pulmonale, unspecified chronicity, unspecified pulmonary embolism type (HCC) Hypertension, unspecified type Gastro-esophageal reflux disease without esophagitis Esophageal reflux Sleep apnea, unspecified type 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 * Observed difficulty with reaching overhead to grab the kathy's. * Hands started going numb when using the kathy. * L shoulder SB HABD/HADD- pain with end range of HABD. * R shoulder SB HABD/HADD- pain throughout range. * Tightness with table flexion on the R > L. * Added therabar exercises for functional strength progression. [facility] Work Phone: History of Present illness Narrative* Patient identified by name and date of . * Discussed potential ways to set up kathy at home as part of HEP d/t not having the right area to use a door. * Patient was not flinching as much when completing SB ROM on raised plinth. * Added scaption with kathy use to gain motion in new plane of movement. * Doorway stretch completed this date d/t tightness along pec and posterior shoulder with tightness observed. [facility] Work Phone: History of Present illness Narrative* The pt has made some mild objective progress in PT with improved b/l shoulder strength and ROM/flexibility. The pt did not fully Meet his PT goals but is I with his HEP and has handouts as a reference. Pt reports that he will keep up with his ex's for ROM/flexibility and strengthening as able but that overall PT did not help improve his shoulder pain and that he still has severe B/l shoulder painwith activity. DC PT at this time. Follow up with MD as needed for further treatment interventions or diagnostic testing. * Response to treatment: improved joint mobility/ROM and improved flexibility. [facility] Work Phone: History of Present illness Narrative* Mr. APONTE presents with signs and symptoms consistent with acute exacerbation of chronic bilateralshoulder pain with arthritis and strain of bilateral shoulder musculature and demonstrates impairments/limitations in Shoulder AROM and PROM with significant instability in bilateral shoulders, weakness at proximal stabilizers as well as myofascial restriction throughout scapular musculature. KT tape applied to Left shoulder this date for improved stability/kinesthetic sense input for improved motor control. He responded well to STM performed after initial evaluation this date and would be a good candidate for Trigger Point Dry Needling in following sessions. He reported good understanding ofedu and review of HEP with HO given this date with peach and red theraband and blue theraloop. Pt also encouraged to increase frequency of use of cryotherapy at home. They would benefit from skilled Physical Therapy with combination of manual therapy techniques to decrease myofascial and joint restrictions, as well as progression of exercises for ROM, flexibility, strength, core stabilization, and postural retraining, and body mechanics education throughout POC to progress towards independence with ADL s/IADL s and return to PLOF. * Clinical Presentation: Stable and/or uncomplicated characteristics. * Level of Complexity: low * Problem List: activity limitations, ADLs/IADLs/self care skills, decreased functional level, flexibility, gait/locomotion, motor function/control/tone, pain, participation restrictions, posture, range of motion/joint mobility and strength. [facility] Work Phone: History of Present illness NarrativePatient identified by name and date of . Patient was able to progress with strengthening this date with discomfort When removing k-tap patient skin broke down and experienced minor bleeding, instructed patient to remove at home during or after a warm shower he verbalized good understanding. Hepresented with palpable tension with STW/IASTM that responded well.[facility] [place] Work Phone: History of Present illness Narrative* Patient identified by name and date of . * Switched to active resisted IR/ER d/t c/o hip pain. * Tightness along the L shoulder > R shoulder. * Did not reapply KT this date d/ continued scabbing from previous visit, wanted to give skin more ofa break. * Added resisted rows this date with no pain increase. [facility] [place] Work Phone: History of Present illness Narrative* Patient identified by name and date of . * Completed IASTM this date to B/L UT d/t tightness. * Re-applied KT tape this date with specific instructions to remove if any irritation starts to present. Patient and verbalized their understanding. * Fatigues quickly with PRE's. [facility] [place] Work Phone: History of Present illness Narrative* Patient identified by name and date of . * Able to progress resistance with PRE's this date. * Added ball on wall for improved ROM and eccentric shoulder strength. * Reapplied KT tape this date with use of spray per patient request. Reminded patient to remove at first sign of any irritation. * Improved eccentric control with use of resistance band throughout PRE's. * Continues to present with myofascial restrictions along B/L UT and supraspinatus regions; L > R with continued need for IASTM. * Progressed HEP this date. * Response to treatment: decreased pain, improved strength and decreased muscle guarding. * Patient was able to complete today's treatment with some difficulty. [facility] [place] Work Phone: History of Present illness Narrative* Patient identified by name and date of . * Improved eccentric control with resisted PRE's. * Patient was cautious with exercises d/t soreness in the armpit. Was able to complete with keeping arm away from the body. * Skin integrity was intact where KT was applied. Taped again this date with use of spray for continued relief. * Taped in more diagonal pattern to keep GH retraction instead of circular pattern d/t it keeps rolling up on the patient with certain movements. * Response to treatment: decreased pain, improved strength and decreased muscle guarding. * Patient was able to complete today's treatment with some difficulty. [facility] Work Phone: History of Present illness Narrative* Patient identified by name and date of . * Response to treatment: decreased pain, improved strength and decreased muscle guarding. * Patient was able to complete today's treatment with some difficulty. [facility] Work Phone: History of Present illness Narrative* Patient identified by name and date of . * Pt reassessed this date by supervising PT with improvements noted in BUE shld AROM as well as improved MMT in BUE's in all directions with overal improved pain. Pt is making goal-oriented progress but is still functionally limited with prolonged use of BUE's for ADL's and IADL's. Pt responds well to addition of TDN to manual techniques, with improved soft tissue mobility as well as improved posture. pt has maintained good compliance with HEP up to this point as well. * Response to treatment: decreased pain, improved strength and decreased muscle guarding. * Patient was able to complete today's treatment with some difficulty. [facility] Work Phone: History of Present illness Narrative* Patient identified by name and date of . * PT did dry needling again this date. * Patient was in pain with his hip sx's and had trouble with PRE's d/t the pain. * Improved eccentric control with shoulder PRE's this date. * Response to treatment: decreased pain, improved strength and decreased muscle guarding. * Patient was able to complete today's treatment with some difficulty. [facility] Work Phone: History of Present illness Narrative* Patient identified by name and date of . * PT did dry needling again this date. * Patient was in pain with his hip sx's and had trouble with PRE's d/t the pain. * Improved eccentric control with shoulder PRE's this date. * TDN performed by Jessica Garcia PT, DPT without any adverse side effects and verbalized good understanding of all edu provided concerning TDN. * Response to treatment: decreased pain, improved strength and decreased muscle guarding. * Patient was able to complete today's treatment with some difficulty. [facility] Work Phone: History of Present illness Narrative* Patient identified by name and date of . * Patient challenged by completion of ther ex today d/t increased symptoms. * Continues to guard with resistive IR/ER. * Palpable spasm in the R supraspinatus/rhomboid/UT region. * TDN performed by Jessica Garcia PT, DPT at end of session without any adverse side effects and verbalized good understanding of all edu provided concerning TDN. * Response to treatment: decreased pain and improved strength. * Patient was able to complete today's treatment with some difficulty. [facility] [place] Work Phone: reason for visit Narrative* Initial Evaluation . Right & Left Shoulder pain. * Referred by: Dr aCruso [facility] [place] Work Phone: reason for visit Narrative* Initial Evaluation . Right & Left Shoulder pain. * Referred by: Dr Caruso [facility] [place] Work Phone: reason for visit Narrative* Initial Evaluation . Right & Left Shoulder pain. * Referred by: Dr Caruso [facility] [place] Work Phone: reason for visit Narrative* Initial Evaluation . Right & Left Shoulder pain. * Referred by: Dr Caruso [facility] [place] Work Phone: reason for visit Narrative* Initial Evaluation . Right & Left Shoulder pain. * Referred by: Dr Caruso [facility] [place] Work Phone: reason for visit Narrative* Initial Evaluation . Right & Left Shoulder pain. * Referred by: [facility] Caruso [facility] Work Phone: reason for visit Narrative* Initial Evaluation . Right & Left Shoulder pain. * [facility]: [facility]uso [facility] Work Phone: reason for visit Narrative* Initial Evaluation . Right & Left Shoulder pain. 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 Advance Directive(s) 02/20/2019 7:18 AM Advance Directive(s) 10/04/2018 12:53 PM Advance Directive(s) 09/18/2018 9:14 AM Advance Directive(s) 09/17/2018 9:59 AM Documents on File Type Date Recorded 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 Advance Directive(s) 11/11/2021 8:57 AM Advance Directive(s) 02/20/2019 7:18 AM Advance Directive(s) 10/04/2018 12:53 PM Advance Directive(s) 09/18/2018 9:14 AM Advance Directive(s) 09/17/2018 9:59 AM Documents on File Type Date Recorded 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 Advance Directive(s) 09/18/2018 9:14 AM Documents on File Type Date Recorded 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 Advance Directive(s) 09/18/2018 9:14 AM Medications Administered Section Inactive Administered Medications - up to 3 most recent administrations Medication Order MAR Action Action Date Dose Rate Site cephALEXin 500 mg cap(s) (KEFLEX) 500 mg, ORAL, ONCE, 1 dose, On Margie 10/21/21 at 1200, Please document the antimicrobial indication: Empiric Given 10/21/2021 10:59 AM EDT 500 mg lidocaine 2 % (XYLOCAINE) URETHRAL, ONCE, 1 dose, On Margie 10/21/21 at 1200, FOR EXTERNAL USE ONLY APPLY TO: 11 ml Given 10/21/2021 11:10 AM EDT 11 mL Inactive Administered Medications - up to 3 most recent administrations Medication Order MAR Action Action Date Dose Rate Site cephALEXin 500 mg cap(s) (KEFLEX) 500 mg, ORAL, ONCE, 1 dose, On Margie 01/20/22 at 1630, Please document the antimicrobial indication: Empiric Given 01/20/2022 3:00 PM EDT 500 mg Oral lidocaine 2 % (XYLOCAINE) URETHRAL, ONCE, 1 dose, On Margie 01/20/22 at 1630, FOR EXTERNAL USE ONLY APPLY TO: PENIS (urethra) 11 mL Given 01/20/2022 3:05 PM EDT 11 mL Other Inactive Administered Medications - up to 3 most recent administrations Medication Order MAR Action Action Date Dose Rate Site gemcitabine 1,000 mg in NaCl 0.9% 50 mL (GEMZAR) 1,000 mg, INTRAVESICAL, ONCE, 1 dose, On Margie 03/03/22 at 0900, Instill into bladder via catheter and retain for 90 minutes, followed by bladder drainage. Expires: (48 hrs) Hazardous Chemotherapy Drug: Use appropriate PPE. Antineoplastic Irritant., AMB MED ORDERS Given 03/03/2022 10:00 AM EDT 1,000 mg lidocaine urojet 2 % 11 mL topical gel (XYLOCAINE, GLYDO) 11 mL, OTHER, ONCE, 1 dose, On Margie 03/03/22 at 0900, Intravesical administration, AMB MED ORDERS Given 03/03/2022 10:00 AM EDT 11 mL Inactive Administered Medications - up to 3 most recent administrations Medication Order MAR Action Action Date Dose Rate Site gemcitabine 1,000 mg in NaCl 0.9% 50 mL (GEMZAR) 1,000 mg, INTRAVESICAL, ONCE, 1 dose, On Margie 03/10/22 at 0800, Instill into bladder via catheter and retain for 90 minutes, followed by bladder drainage. Expires: 03/12/22 @ 08:00 Hazardous Chemotherapy Drug: Use appropriate PPE. Antineoplastic Irritant., AMB MED ORDERS Given 03/10/2022 11:00 AM EDT 1,000 mg lidocaine urojet 2 % 11 mL topical gel (XYLOCAINE, GLYDO) 11 mL, OTHER, ONCE, 1 dose, On Margie 03/10/22 at 0800, Intravesical administration, AMB MED ORDERS Given 03/10/2022 11:00 AM EDT 11 mL Inactive Administered Medications - up to 3 most recent administrations Medication Order MAR Action Action Date Dose Rate Site gemcitabine 1,000 mg in NaCl 0.9% 50 mL (GEMZAR) 1,000 mg, INTRAVESICAL, ONCE, 1 dose, On Margie 03/17/22 at 0800, Instill into bladder via catheter and retain for 90 minutes, followed by bladder drainage. Expires: 03/19/22 @ 10:00 (room temp) Hazardous Chemotherapy Drug: Use appropriate PPE. Antineoplastic Irritant., AMB MED ORDERS Given 03/17/2022 10:10 AM EDT 1,000 mg lidocaine urojet 2 % 11 mL topical gel (XYLOCAINE, GLYDO) 11 mL, OTHER, ONCE, 1 dose, On Margie 03/17/22 at 0800, Intravesical administration, AMB MED ORDERS Given 03/17/2022 10:10 AM EDT 11 mL Inactive Administered Medications - up to 3 most recent administrations Medication Order MAR Action Action Date Dose Rate Site gemcitabine 1,000 mg in NaCl 0.9% 50 mL (GEMZAR) 1,000 mg, INTRAVESICAL, ONCE, 1 dose, On Margie 03/24/22 at 0900, Instill into bladder via catheter and retain for 90 minutes, followed by bladder drainage. Expires: 03/26/22 @ 11:00 Hazardous Chemotherapy Drug: Use appropriate PPE. Antineoplastic Irritant., AMB MED ORDERS Given 03/24/2022 11:10 AM EDT 1,000 mg lidocaine urojet 2 % 11 mL topical gel (XYLOCAINE, GLYDO) 11 mL, OTHER, ONCE, 1 dose, On Margie 03/24/22 at 0900, Intravesical administration, AMB MED ORDERS Given 03/24/2022 11:10 AM EDT 11 mL Inactive Administered Medications - up to 3 most recent administrations Medication Order MAR Action Action Date Dose Rate Site gemcitabine 1,000 mg in NaCl 0.9% 50 mL (GEMZAR) 1,000 mg, INTRAVESICAL, ONCE, 1 dose, On Margie 03/31/22 at 0830, Instill into bladder via catheter and retain for 90 minutes, followed by bladder drainage. Expires: 04/02/22 @ 09:00 (room temp) Hazardous Chemotherapy Drug: Use appropriate PPE. Antineoplastic Irritant., AMB MED ORDERS Given 03/31/2022 9:00 AM EDT 1,000 mg lidocaine urojet 2 % 11 mL topical gel (XYLOCAINE, GLYDO) 11 mL, OTHER, ONCE, 1 dose, On Margie 03/31/22 at 0830, Intravesical administration, AMB MED ORDERS Given 03/31/2022 9:00 AM EDT 11 mL Inactive Administered Medications - up to 3 most recent administrations Medication Order MAR Action Action Date Dose Rate Site cephALEXin 500 mg cap(s) (KEFLEX) 500 mg, ORAL, ONCE, 1 dose, On Margie 04/21/22 at 1230, Please document the antimicrobial indication: Empiric Given 04/21/2022 11:25 AM EST 500 mg Oral lidocaine 2 % (XYLOCAINE) URETHRAL, ONCE, 1 dose, On Margie 04/21/22 at 1230, FOR EXTERNAL USE ONLY APPLY TO: PENIS Given 04/21/2022 11:30 AM EST 11 mL Other Inactive Administered Medications - up to 3 most recent administrations Medication Order MAR Action Action Date Dose Rate Site cephALEXin 500 mg cap(s) (KEFLEX) 500 mg, ORAL, ONCE, 1 dose, On 03/14/23 at 1100, Antimicrobial indication: Empiric Given 03/14/2023 10:35 AM EDT 500 mg Oral lidocaine 2 % topical gel (XYLOCAINE) URETHRAL, ONCE, 1 dose, On 03/14/23 at 1100, FOR EXTERNAL USE ONLY APPLY TO: PENIS Given 03/14/2023 10:40 AM EDT 11 mL Other Inactive Administered Medications - up to 3 most recent administrations Medication Order MAR Action Action Date Dose Rate Site gemcitabine 1,000 mg intravesical (GEMZAR) 1,000 mg, INTRAVESICAL, ONCE, 1 dose, On Margie 04/06/23 at 0800, Instill into bladder via catheter and retain for 90 minutes, followed by bladder drainage. EXP: 04/08/23 @ 08:30 (room temperature) Hazardous Chemotherapy Drug: Use appropriate PPE. Antineoplastic Irritant., AMB MED ORDERS Given 04/06/2023 10:40 AM EDT 1,000 mg lidocaine urojet 2 % 11 mL topical gel (GLYDO) 11 mL, OTHER, ONCE, 1 dose, On Margie 04/06/23 at 0800, Intravesical administration, AMB MED ORDERS Given 04/06/2023 10:40 AM EDT 11 mL Reason for Referral Specialty Diagnoses / Procedures Referred By Contobed t Referred To Contact CT IMAGING Diagnoses 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) Procedures CT UROGRAM WO/W IVCON CT ABD & PELVIS W/O CONTRST 1+ BODY Daniela Salinas DO [address] [place] [address] Ct Imaging Referral ID Status Reason Start Date Expiration Date Visits Requested Visits Authorized [id number] Authorized Auto-Generat ed Referral 01/21/2022 02/20/2023 1 1 Additional Source Comments (unrecognized sect ion and content) No Status Records FoundNo Status Records FoundNo Status Records FoundNo Status Records FoundNo Status Records FoundNo Status Records FoundNo Status Records FoundNo Status Records FoundNo Status Records FoundNo Status Records FoundNo Status Records Found INFORMATION SOURCE (unrecogn ized section and content) DATE CREATED AUTHOR 12/23/2017 [facility] DATE CREATED AUTHOR AUTHOR'S ORGANIZ ATION 02/19/2018 [facility] DATE CREATED AUTHOR AUTHOR'S ORGANIZ ATION 08/15/2019 [facility] DATE CREATED AUTHOR AUTHOR'S ORGANIZ ATION 11/29/2020 [facility] DATE CREATED AUTHOR AUTHOR'S ORGANIZ ATION 09/22/2021 [facility] DATE CREATED AUTHOR AUTHOR'S ORGANIZ ATION 02/28/2023 [facility] DATE CREATED AUTHOR AUTHOR'S ORGANIZ ATION 03/15/2023 [facility] DATE CREATED AUTHOR AUTHOR'S ORGANIZ ATION 04/09/2023 [facility] DATE CREATED AUTHOR AUTHOR'S ORGANIZ ATION 10/26/2023 [facility] DATE CREATED AUTHOR AUTHOR'S ORGANIZ ATION 12/08/2023 [facility] DATE CREATED AUTHOR AUTHOR'S ORGANIZ ATION 03/26/2024 [facility] Source Comments (unrecognize d section and content) In the event this informatio n is protected by the Federal Confidentiality of Alcohol and Drug Abuse Patient Records regulations: The Federal rules restrict any use of the information to criminally investigate or prosecute any alcohol or drug abuse patient.[facility] the event this information is protected by the Federal Confidentiality of Alcohol and Drug Abuse Patient Records regulations: The Federal rules restrict any use of the information to criminally investigate or prosecute any alcohol or drug abuse patient.[facility] the event this information is protected by the Federal Confidentiality of Alcohol and Drug Abuse Patient Records regulations: The Federal rules restrict any use of the information to criminally investigate or prosecute any alcohol or drug abuse patient.[facility] the event this information is protected by the Federal Confidentiality of Alcohol and Drug Abuse Patient Records regulations: The Federal rules restrict any use of the information to criminally investigate or prosecute any alcohol or drug abuse patient.[facility] the event this information is protected by the Federal Confidentiality of Alcohol and Drug Abuse Patient Records regulations: The Federal rules restrict any use of the information to criminally investigate or prosecute any alcohol or drug abuse patient.[facility] the event this information is protected by the Federal Confidentiality of Alcohol and Drug Abuse Patient Records regulations: The Federal rules restrict any use of the information to criminally investigate or prosecute any alcohol or drug abuse patient.[facility] the event this information is protected by the Federal Confidentiality of Alcohol and Drug Abuse Patient Records regulations: The Federal rules restrict any use of the information to criminally investigate or prosecute any alcohol or drug abuse patient.[facility] the event this information is protected by the Federal Confidentiality of Alcohol and Drug Abuse Patient Records regulations: The Federal rules restrict any use of the information to criminally investigate or prosecute any alcohol or drug abuse patient.[facility] the event this information is protected by the Federal Confidentiality of Alcohol and Drug Abuse Patient Records regulations: The Federal rules restrict any use of the information to criminally investigate or prosecute any alcohol or drug abuse patient.[facility] the event this information is protected by the Federal Confidentiality of Alcohol and Drug Abuse Patient Records regulations: The Federal rules restrict any use of the information to criminally investigate or prosecute any alcohol or drug abuse patient.[facility] the event this information is protected by the Federal Confidentiality of Alcohol and Drug Abuse Patient Records regulations: The Federal rules restrict any use of the information to criminally investigate or prosecute any alcohol or drug abuse patient.[facility] the event this information is protected by the Federal Confidentiality of Alcohol and Drug Abuse Patient Records regulations: The Federal rules restrict any use of the information to criminally investigate or prosecute any alcohol or drug abuse patient.[facility] the event this information is protected by the Federal Confidentiality of Alcohol and Drug Abuse Patient Records regulations: The Federal rules restrict any use of the information to criminally investigate or prosecute any alcohol or drug abuse patient.[facility] the event this information is protected by the Federal Confidentiality of Alcohol and Drug Abuse Patient Records regulations: The Federal rules restrict any use of the information to criminally investigate or prosecute any alcohol or drug abuse patient.[facility] the event this information is protected by the Federal Confidentiality of Alcohol and Drug Abuse Patient Records regulations: The Federal rules restrict any use of the information to criminally investigate or prosecute any alcohol or drug abuse patient.[facility] Center[facility] the event this information is protected by the Federal Confidentiality of Alcohol and Drug Abuse Patient Records regulations: The Federal rules restrict any use of the information to criminally investigate or prosecute any alcohol or drug abuse patient.[facility] the event this information is protected by the Federal Confidentiality of Alcohol and Drug Abuse Patient Records regulations: The Federal rules restrict any use of the information to criminally investigate or prosecute any alcohol or drug abuse patient.[facility] the event this information is protected by the Federal Confidentiality of Alcohol and Drug Abuse Patient Records regulations: The Federal rules restrict any use of the information to criminally investigate or prosecute any alcohol or drug abuse patient.[facility] the event this information is protected by the Federal Confidentiality of Alcohol and Drug Abuse Patient Records regulations: The Federal rules restrict any use of the information to criminally investigate or prosecute any alcohol or drug abuse patient.[facility] Center[facility] the event this information is protected by the Federal Confidentiality of Alcohol and Drug Abuse Patient Records regulations: The Federal rules restrict any use of the information to criminally investigate or prosecute any alcohol or drug abuse patient.[facility] Center[facility] the event this information is protected by the Federal Confidentiality of Alcohol and Drug Abuse Patient Records regulations: The Federal rules restrict any use of the information to criminally investigate or prosecute any alcohol or drug abuse patient.[facility] Center[facility] the event this information is protected by the Federal Confidentiality of Alcohol and Drug Abuse Patient Records regulations: The Federal rules restrict any use of the information to criminally investigate or prosecute any alcohol or drug abuse patient.[facility] the event this information is protected by the Federal Confidentiality of Alcohol and Drug Abuse Patient Records regulations: The Federal rules restrict any use of the information to criminally investigate or prosecute any alcohol or drug abuse patient.[facility] the event this information is protected by the Federal Confidentiality of Alcohol and Drug Abuse Patient Records regulations: The Federal rules restrict any use of the information to criminally investigate or prosecute any alcohol or drug abuse patient.[facility] the event this information is protected by the Federal Confidentiality of Alcohol and Drug Abuse Patient Records regulations: The Federal rules restrict any use of the information to criminally investigate or prosecute any alcohol or drug abuse patient.[facility] the event this information is protected by the Federal Confidentiality of Alcohol and Drug Abuse Patient Records regulations: The Federal rules restrict any use of the information to criminally investigate or prosecute any alcohol or drug abuse patient.[facility] the event this information is protected by the Federal Confidentiality of Alcohol and Drug Abuse Patient Records regulations: The Federal rules restrict any use of the information to criminally investigate or prosecute any alcohol or drug abuse patient.[facility] the event this information is protected by the Federal Confidentiality of Alcohol and Drug Abuse Patient Records regulations: The Federal rules restrict any use of the information to criminally investigate or prosecute any alcohol or drug abuse patient.[facility] the event this information is protected by the Federal Confidentiality of Alcohol and Drug Abuse Patient Records regulations: The Federal rules restrict any use of the information to criminally investigate or prosecute any alcohol or drug abuse patient.[facility] the event this information is protected by the Federal Confidentiality of Alcohol and Drug Abuse Patient Records regulations: The Federal rules restrict any use of the information to criminally investigate or prosecute any alcohol or drug abuse patient.[facility] CenterIn the event this information is protected by the Federal Confidentiality of Alcohol and Drug Abuse Patient Records regulations: The Federal rules restrict any use of the information to criminally investigate or prosecute any alcohol or drug abuse patient.[facility] the event this information is protected by the Federal Confidentiality of Alcohol and Drug Abuse Patient Records regulations: The Federal rules restrict any use of the information to criminally investigate or prosecute any alcohol or drug abuse patient.[facility] Center[facility] the event this information is protected by the Federal Confidentiality of Alcohol and Drug Abuse Patient Records regulations: The Federal rules restrict any use of the information to criminally investigate or prosecute any alcohol or drug abuse patient.[facility] the event this information is protected by the Federal Confidentiality of Alcohol and Drug Abuse Patient Records regulations: The Federal rules restrict any use of the information to criminally investigate or prosecute any alcohol or drug abuse patient.[facility] the event this information is protected by the Federal Confidentiality of Alcohol and Drug Abuse Patient Records regulations: The Federal rules restrict any use of the information to criminally investigate or prosecute any alcohol or drug abuse patient.[facility] Center[facility] the event this information is protected by the Federal Confidentiality of Alcohol and Drug Abuse Patient Records regulations: The Federal rules restrict any use of the information to criminally investigate or prosecute any alcohol or drug abuse patient.[facility] Reason for Visit (unrecogniz ed section and content) Reason Comments Cystoscopy-1 Reason Comments Bladder Cancer Malignant neoplasm o f urinary bladder, unspecified site (HCC) [C67.9] Reason Comments Patient Question Reason Comments Bladder Cancer Reason Comments Gemzar Set Up Reason Comments Nurse Visit Specialty Diagnoses / Procedures Referred By Contac t Referred To Contact UROLOGY Diagnoses Malignant neoplasm of bladder, unspecified Procedures GEMCITABINE HCL, 200 MG BLADDER INSTILLATION ANTICARCINOGENIC AGENT Please Authorize Gemzar 1000 mg isntillation into bladder intravesically weekly for 3 weeks. Daniela Cruz, [address] [place] [address] [facility] [address] [address] Referral ID Status Reason Start Date Expiration Date V isits Requested Visits Authorized [id number] Authorized 03/03/2022 06/01/2022 3 3 Referral ID Status Reason Start Date Expiration Date Visits Re quested Visits Authorized [id number] Closed 03/03/2022 06/01/2022 3 3 Reason Comments Bladder Cancer Reason Comments Refill Request Reason Comments Cysto Scheduling Reason Onset Date Comments Refill Request 10/24/2022 Reason Comments Appointment Reason Onset Date Comments Refill Request 04/06/2023 Reason Onset Date Comments Appointment 10/18/2023 Reason Comments Established Patient Post op Reason Comments Poorly controlled Type 2 Diabetes, insul in requiring Reason Onset Date Comments Med Change Request Question 01/31/2024 Reason Comments Type 2 Diabetes Reason Comments Orders Dexcom G7 Care Teams (unrecognized sec tion and content) Drafter Assistant Relationship Specialty Start Date End Date [place] Lou Dario [address] [facility] [address] [place], [place] [phone] PCP - General Family Practice 10/01/18 Drafter Assistant Relationship Specialty Start Date End Date [place] Lou Dario [address] [facility] [address] [facility] [facility] [place], [place] [id number] [phone] PCP - General Family Practice 10/01/18 Drafter Assistant Relationship Specialty Start Date End Date [place] Lou Dario [address] [facility] [address] [facility] [place] [address] PCP - General Family Practice 10/01/18 Drafter Assistant Relationship Specialty Start Date End Date [place] Lou Dario [address] [facility] [address] [facility] [place] [address] PCP - General Family Practice 10/01/18 Drafter Assistant Relationship Specialty Start Date End Date [place] Lou Dario [address] [facility] [address] [place] [address] PCP - General Family Practice 10/01/18 Drafter Assistant Relationship Specialty Start Date End Date Edin Tomlinson PA-C [address] [place] [address] [place] [address] PCP - General Family Practice 01/24/22 Drafter Assistant Relationship Specialty Start Date End Date Edin Tomlinson PA-C [address] [facility] [address] [facility] [place] [address] PCP - General Family Practice 01/24/22 Drafter Assistant Relationship Specialty Start Date End Date Edin Tomlinson PA-C [address] [facility] [address] [facility] [address] [place], [place] [phone] PCP - General Family Medicine 01/24/22 Drafter Assistant Relationship Specialty Start Date End Date Edin Tomlinson PA-C [address] [place] [address] [place] [address] PCP - General Family Medicine 01/24/22 Drafter Assistant Relationship Specialty Start Date End Date Edin Tomlinson PA-C [address] [place] [address] [place] [address] PCP - General Family Medicine 01/24/22 Drafter Assistant Relationship Specialty Start Date End Date Edin Tomlinson PA-C [address] [place] [address] [place] [address] PCP - General Family Medicine 01/24/22 Drafter Assistant Relationship Specialty Start Date End Date Edin Tomlinson PA-C [address] [place] [address] [place] [address] PCP - General Family Medicine 01/24/22 Drafter Assistant Relationship Specialty Start Date End Date Edin Tomlinson PA-C [address] [place] [address] [place] [address] PCP - General Family Medicine 01/24/22 Drafter Assistant Relationship Specialty Start Date End Date Edin Tomlinson PA-C [address] [place] [address] [place] [address] PCP - General Family Medicine 01/24/22 Drafter Assistant Relationship Specialty Start Date End Date Edin Tomlinson PA-C [address] [place] [address] [place] [address] PCP - General Family Medicine 01/24/22 Drafter Assistant Relationship Specialty Start Date End Date Edin Tomlinson PA-C [address] [facility] [address] [facility] [address] [place], [place] [phone] PCP - General Family Medicine 01/24/22 Drafter Assistant Relationship Specialty Start Date End Date Edin Tomlinson PA-C [address] [facility] [address] [place] [address] PCP - General Family Medicine 01/24/22 Drafter Assistant Relationship Specialty Start Date End Date Edin Tomlinson PA-C [address] [facility] [place] [address] PCP - General Family Medicine 01/24/22 Drafter Assistant Relationship Specialty Start Date End Date Edin Tomlinson PA-C [address] [facility] [place] [address] PCP - General Family Medicine 01/24/22 Drafter Assistant Relationship Specialty Start Date End Date Edin Tomlinson PA-C [address] [facility] [place] [address] PCP - General Family Medicine 01/24/22 Drafter Assistant Relationship Specialty Start Date End Date Edin Tomlinson PA-C [address] [facility] [address] [place] [address] PCP - General Family Medicine 01/24/22 Drafter Assistant Relationship Specialty Start Date End Date Edin Tomlinson PA-C [address] [place] [address] PCP - General Family Medicine 01/24/22 Drafter Assistant Relationship Specialty Start Date End Date Edin Tomlinson PA-C [address] [place] [address] PCP - General Family Medicine 01/24/22 Drafter Assistant Relationship Specialty Start Date End Date Edin Tomlinson PA-C [address] [place] [address] PCP - General Family Medicine 01/24/22 Drafter Assistant Relationship Specialty Start Date End Date Edin Tomlinson PA-C [address] [place] [address] PCP - General Family Medicine 01/24/22 Drafter Assistant Relationship Specialty Start Date End Date Edin Tomlinson PA-C [address] [facility] [place] [address] PCP - General Family Medicine 01/24/22 Drafter Assistant Relationship Specialty Start Date End Date Edin Tomlinson PA-C [address] [place] [address] PCP - General Family Medicine 01/24/22 Drafter Assistant Relationship Specialty Start Date End Date Edin Tomlinson PA-C [address] [facility] [place] [address] PCP - General Family Medicine 01/24/22 Drafter Assistant Relationship Specialty Start Date End Date Edin Tomlinson PA-C [address] [facility] [place] [address] PCP - General Family Medicine 01/24/22 Drafter Assistant Relationship Specialty Start Date End Date Edin Tomlinson PA-C [address] [facility] [place] [place] [address] PCP - General Family Medicine 01/24/22 Inactive Administered Medications - up to 3 most recent administrations Administered Medications (un recognized section and content) Medication Order MAR Action Action Date Dose Rate Site cephALEXin 500 mg cap(s) (KEFLEX) 500 mg, ORAL, ONCE, 1 dose, On Mon09/19/23 at 1000, Antimicrobial indication: Empiric Given 09/19/2023 9:35 AM EDT 500 mg Oral lidocaine urojet 2 % 11 mL topical gel (GLYDO) 11 mL, URETHRAL, ONCE (UP TO 30 DAYS AMB), 1 dose, On Mon09/19/23 at 1000, FOR EXTERNAL USE ONLY APPLY TO: PENIS Given 09/19/2023 9:40 AM EDT 11 mL Pe nis Scheduled Active and Recently Administ ered Medications (unrecognized section and content) Medication Order 10/16/2023 10/17/2023 10/18/2023 acetaminophen 975 mg tab(s) (TYLENOL) (COMPLETED) 975 mg, ORAL, PRE-OP ONCE, 1 dose, On Mon10/18/23 at 0700, If ordered PRN for pain, patient/guardian may elect to receive this medication for higher pain levels INSTEAD of the opioid, if preferred: Yes, Preprocedure 0721 (Given - Provid er: Eboni Cintron RN) ceFAZolin iv piggyback 2 g in D5W (iso-osmotic) 100 mL (ANCEF) (COMPLETED) 2 g, INTRAVENOUS, at 200 mL/hr, Administer over 30 Minutes, ONCE, 1 dose, On Mon10/18/23 at 0700, Refrigerate, Antimicrobial indication: Prophylaxis, Preprocedure 0845 (Given - Provid er: Asia Diaz APRN.[employer]) celecoxib 400 mg cap(s) (CeleBREX) (COMPLETED) 400 mg, ORAL, PRE-OP ONCE, 1 dose, On Mon10/18/23 at 0700, Preprocedure 0721 (Given - Provid er: Eboni Cintron RN) gabapentin 300 mg cap(s) (NEURONTIN) (COMPLETED) 300 mg, ORAL, PRE-OP ONCE, 1 dose, On Mon10/18/23 at 0700, Preprocedure 0720 (Given - Provid er: Eboni Cintron RN) Continuous Medication Order 10/16/2023 10/17/2023 10/18/2023 lactated ringers iv infusion 125 mL/hr, INTRAVENOUS, CONTINUOUS, Starting on Mon10/18/23 at 0930, Until Margie 10/19/23 at 0304, Recovery or Phase I (only) 0930 (New Bag/Syring e/Bottle - Provider: Eneida Ramirez RN) PRN Medication Order 10/16/2023 10/17/2023 10/18/2023 fentaNYL 50 mcg/mL 50 mcg injection (SUBLIMAZE) (COMPLETED) 50 mcg, INTRAVENOUS, EVERY 5 MINUTES NEEDED, 2 doses, Starting on Mon10/18/23 at 0905, Until Discontinued, FIRST LINE THERAPY for pain score 1 or greater, Every 5 minutes. Use if patient unable to tolerate oral therapy. Hold for respiratory rate less than 12 Max total dose: 100 mcg, Recovery or Phase I (only) 0938 (Given - Provid er: Eneida Ramirez RN)0945 (Given - Provider: Eneida Ramirez RN) HYDROmorphone 0.5 mg injection (DILAUDID) 0.5 mg, INTRAVENOUS, EVERY 10 MINUTES NEEDED, 4 doses, Starting on Mon10/18/23 at 0905, Until Margie 10/19/23 at 0304, SECOND LINE THERAPY for pain score 1 or greater, Every 10 minutes. Use if patient unable to tolerate oral therapy. Hold for respiratory rate less than 12 Max total dose: 2 mg, Recovery or Phase I (only) 1003 (Given - Provid er: Eneida Ramirez RN)1024 (Given - Provider: Eneida Ramirez RN) ipratropium-albuterol 3 mL nebulizer solution (DUONEB) 3 mL, INHALATION, NEEDED, 1 dose, Starting on Mon10/18/23 at 0931, Until Margie 10/19/23 at 0304, wheezing/shortness of breath, PROTECT FROM LIGHT. The unit-dose vial should remain stored in the protective foil pouch until time of use., Recovery or Phase I (only) oxyCODONE IR 5 mg tab(s) (ROXICODONE) (COMPLETED) 5 mg, ORAL, NEEDED, 1 dose, Starting on Mon10/18/23 at 0905, Until Discontinued, Moderate Pain (4-6) - Enteral, Recovery or Phase I (only) 1017 (Given - Provid er: Eneida Ramirez RN) FOR RECORDS PERTAINING TO PATIENTS WHO ARE OR HAVE BEEN ENROLLED IN A CHEMICAL DEPENDENCY/SUBSTANCEABUSE PROGRAM, SOME INFORMATION MAY BE OMITTED. This clinical summary was aggregated from multiple sources. Caution should be exercised in using it in the provision of clinical care. This summary normalizes information from multiple sources, and as a consequence, information in this document may materially change the coding, format and clinical context of patient data. In addition, data may be omitted in some cases. CLINICAL DECISIONS SHOULD BE BASED ON THE PRIMARY CLINICAL RECORDS. [email or web address] [employer] [facility]. provides no warranty or guarantee of the accuracy or completeness of information in this document.
[2024-04-01 06:08] VITALS: BP 133/80; PULSE 86; RESP 18; TEMP 36.6; O2SAT 96; BMI 55.0
--- NOTE | 2024-04-01 07:30 | RAD_ITS ---
STUDY: X-RAY - LUMBAR SPINE REASON FOR EXAM: Male, 53 years old. RADIO FREQUENCY ABLATION L4,L5,S1 TECHNIQUE: 10 intraoperative view(s) of the lumbar spine were obtained. COMPARISON: None FINDINGS: Intraoperative images demonstrate placement of needles at the left facets at L2-3 through L5-S1 . RAD/Lumbar Spine 2 or 3 Views IMPRESSION: Intraoperative images as noted. Electronically Signed: Cricket Coy DO at 16:34 EDT ,
[2024-04-01 07:36] VITALS: BP 120/96; BP 122/98; BP 145/86; BP 82/73; O2SAT 95; O2SAT 96
[2024-04-01] MEDS: Lidocaine 1% (30 ml sdv) 30 ML Vial (07:43)
[2024-04-01] MEDS: MethylPREDNISolone Acetate 40 MG/ML Vial (07:43)
[2024-04-01] MEDS: Bupivacaine 0.25% 30 ML Vial (07:44)
[2024-04-01 08:01] VITALS: BP 131/87; BP 133/80; PULSE 84; RESP 20; TEMP 36.4; O2SAT 95
--- NOTE | 2024-04-01 08:22 | OP.PCM_ITS ---
Report of Operation Date of Procedure: 04/01/24 Pre-Operative Diagnosis: Lumbosacral spondylosis, lumbosacral degenerative disc disease, lumbar facet arthropathy Post-Operative Diagnosis: Lumbosacral spondylosis, lumbosacral degenerative disc disease, lumbar facet arthropathy Surgery/Procedure Performed:: Left-sided lumbar radiofrequency ablation of the medial branch L4, L5, S1 Type of Anesthesia: Local Estimated Blood Loss (mL): Minimal Description of Procedure: History and physical today was reviewed. Risks and benefits of procedure explained. The patient understood, agreed to the procedure and informed consent was obtained. IV inserted per routine protocol. The patient was taken to the operating room, placed in the prone position with a pillow positioned underneath the abdomen. The left side of the lower back was prepped and draped in a sterile fashion using iodine x 3. Under fluoroscopy guidance, on an oblique view, the L3 through S1 vertebral bodies were visualized. The skin and subcutaneous tissue was anesthetized with approximately 10 mL of 1% lidocaine using a 25-gauge regular needle. Under direct visualization with fluoroscopy at approximately 25-degree angle, starting on the left L3, ending on the left S1 passing through the L4-L5 using a 20-gauge 15 cm with a 10 mm curved active tip radiofrequency ablation needle the needle passed through the skin. The tip of the needle was maneuvered and directed towards the superior and medial gutter of the transverse process at the vicinity of the medial branch. Once the tip of the needle was in contact with the bone, t he needle pulled approximately 2 mm up the bone. The stylet of each needle was then removed. After negative aspiration of blood with CSF and confirmation of AP as well as oblique view, radiofrequency ablation probe was then inserted at each level. Impedance was then recorded at L3 to be 223, at L4 228, at L5 226, at S1 216 ohm. Motor-evoked potential was then initiated to 1.5 volt without any motor response at each corresponding level. The probe was then removed intact and a total of 6 mL preservative-free 1% lidocaine was injected in divided doses between those 4 levels after negative aspiration of blood with CSF. The radiofrequency ablation probe was then reinserted after confirmation of AP, oblique as well as lateral view. Radiofrequency ablation was then initiated to 80 degrees Celsius for 90 seconds at each level. Once concluded, the probe was then removed intact and a total of 6 mL of preservative-free 0.25% Marcaine with 40 mg Depo-Medrol was injected in divided doses between those 4 levels. The needles were then removed intact. The patient experienced no signs or symptoms of intrathecal, intravascular injection. The patient experienced no paraesthesia. The procedure was completed without any apparent difficulty, any complication. The patient appeared to tolerate well. Sensory as well as motor exam was unchanged from prior to procedure. ASSESSMENT AND PLAN: This is a 53-year-old male with lumbosacral spondylosis, lumbosacral degenerative disc disease, lumbar facet arthropathy, status post left-sided lumbar radiofrequency ablation of the medial branch L4 through S1. The patient will continue his current medications. The patient will follow up in approximately 2 weeks for reevaluation. Complications None
== END 2024-04-01 08:03 | disposition home or self-care (01) ==
LOC: SDC 05:44 → AC 05:45
PROVIDERS: PCP Physician Assistant; Visit Provider Anesthesiology Pain Medicine
PROC: (CPT 64635; principal; 2024-04-01 07:25)
DX: M47.817 Spondylosis without myelopathy or radiculopathy, lumbosacral region (principal); E11.9 Type 2 diabetes mellitus without complications; M54.16 Radiculopathy, lumbar region; M46.96 Unspecified inflammatory spondylopathy, lumbar region; M51.369 Other intervertebral disc degeneration, lumbar region without mention of lumbar back pain or lower extremity pain; M51.379 Other intervertebral disc degeneration, lumbosacral region without mention of lumbar back pain or lower extremity pain; M47.816 Spondylosis without myelopathy or radiculopathy, lumbar region; M48.061 Spinal stenosis, lumbar region without neurogenic claudication; I10 Essential (primary) hypertension; L40.9 Psoriasis, unspecified; F17.210 Nicotine dependence, cigarettes, uncomplicated; Z79.84 Long term (current) use of oral hypoglycemic drugs; Z85.51 Personal history of malignant neoplasm of bladder; Z86.711 Personal history of pulmonary embolism; Z79.899 Other long term (current) drug therapy; Z96.641 Presence of right artificial hip joint; Z79.891 Long term (current) use of opiate analgesic
CPT/HCPCS: 64635; 64636; 72100; 76000; A4216

== ENCOUNTER 2024-09-30 07:55 | Day surgery (SDC) | payer MEDICARE, MEDICAID, SELFPAY ==
[2024-09-30 08:12] VITALS: BP 144/93; PULSE 97; RESP 18; TEMP 37; O2SAT 95; BMI 54.4
--- NOTE | 2024-09-30 09:02 | RAD_ITS ---
PROCEDURE: FLUOR GUIDANCE FOR SPINE INJ 09/30/2024 REASON FOR EXAM: BLOCK, CAUDAL TECHNIQUE: Fluoroscopic services provided for caudal block. 6.3 seconds of fluoroscopy. 5.9 mGy. Single image was submitted. COMPARISON: None FINDINGS: Intraoperative imaging provided for caudal block. RAD/Fluor Guidance for Spine Inj IMPRESSION: Intraoperative imaging provided for caudal block. Reading Location: [facility]
[2024-09-30] MEDS: Bupivacaine 0.25% 30 ML Vial (09:10)
[2024-09-30] MEDS: Lidocaine 1% (5 ml sdv) 5 ML Vial (09:10)
[2024-09-30] MEDS: MethylPREDNISolone Acetate 80 MG/ML Vial (09:10)
[2024-09-30] MEDS: 0.9% Normal Saline (Pres. free 10 ML Vial (09:10)
[2024-09-30 09:17] LABS: Bedside Glucose 151 mg/dL (74-106)
--- NOTE | 2024-09-30 09:19 | OP.PCM_ITS ---
Operative Report (Standard) Operative Information Date of Procedure: 09/30/24 Pre-Operative Diagnosis: 1 Post-Operative Diagnosis: 1 Surgery/Procedure Performed: 1 computational theory scientist: No Type of Anesthesia: Local RN Documented Start/Stop Times: Operation Date: 09/30/24 09:40 Case Time Into Pre-Op 09/30/24 08:10 Out of Pre-Op 09/30/24 08:56 Into Room 09/30/24 09:04 Procedure Start 09/30/24 09:10 Procedure End 09/30/24 09:12 Out of Room 09/30/24 09:14 Into Phase II Recovery 09/30/24 09:16 Anesthesia Start Procedure Start Time: 09:19 Procedure Stop Time: :19 Select all DRAINS/GRAFTS/IMPLANTS that apply: None Estimated Blood Loss: none Specimen collected: No Description of surgery: Pre-Operative Diagnosis: Lumbosacral radiculopathy, lumbosacral degenerative disc disease, lumbosacral spinal stenosis Post-Operative Diagnosis: Lumbosacral radiculopathy, lumbosacral degenerative disc disease, lumbosacral spinal stenosis Surgery/Procedure Performed:: Diagnostic/therapeutic caudal epidural steroid injection under fluoroscopic guidance Type of Anesthesia: Local Estimated Blood Loss (mL): Minimal Description of Procedure: DESCRIPTION OF PROCEDURE: History and physical of today was reviewed. Risks and benefits of the procedure were explained. The patient understood and agreed to proceed. Informed consent was obtained. IV inserted per routine protocol. The patient was taken to the operating room and placed in the prone position with a pillow positioned underneath the abdomen. The lower back and tailbone area was prepped and draped in a sterile fashion using iodine x3. Under fluoroscopy guidance on a lateral view, the caudal space was identified. The skin and subcutaneous tissue was anesthetized with approximately 3 mL of 1% lidocaine using a 25-gauge regular needle. Under direct visualization with fluoroscopy, using a 22-gauge 3-1/2-inch spinal needle, the needle was advanced via the skin through the sacral hiatus. The tip of the needle was passed through the sacrococcygeal ligament and advanced to approximately S4 area. After negative aspiration of blood or CSF, a total of 3 mL of contrast was injected to confirm correct placement of the needle as well as cephalad spread. The spread was followed to approximately L5 area. After confirmation on AP as well as lateral view and repeated negative aspiration, a total of 15 mL of preservative-free 0.125% Marcaine with 80 mg of Depo-Medrol was injected easily. The needle was then removed intact. The patient experienced no sign or symptoms of intrathecal or intravascular injection. The patient experienced no paresthesia. The procedure was completed without any apparent difficulty or any complications. The patient appeared to tolerate it well. ASSESSMENT AND PLAN: This is a 53-year-old male with lumbosacral radiculopathy, lumbosacral degenera tive disc disease, lumbosacral spinal stenosis status post diagnostic/therapeutic caudal epidural steroid injection, patient will continue his current medications, patient will follow up in approximately 2 weeks for reevaluation. Surgical Findings: a Complications Complications: No Admit VTE Documentation VTE Present on Admission: No VTE Mechan Device Prophylaxis: None VTE Pharm Prophylaxis ordered?: No
[2024-09-30 09:23] VITALS: BP 116/80; PULSE 89; RESP 14; TEMP 37.2; O2SAT 95
== END 2024-09-30 09:32 | disposition home or self-care (01) ==
LOC: SDC 07:56 → AC 07:57
PROVIDERS: PCP Physician Assistant; Referring Provider Anesthesiology Pain Medicine; Visit Provider Anesthesiology Pain Medicine
PROC: 3E0S3BZ Introduction of Anesthetic Agent into Epidural Space, Percutaneous Approach (ICD-10-PCS; CPT 62282; principal; 2024-09-30 09:35)
DX: M51.17 Intervertebral disc disorders with radiculopathy, lumbosacral region (principal); Z68.43 Body mass index [BMI] 50.0-59.9, adult; M48.07 Spinal stenosis, lumbosacral region; M46.96 Unspecified inflammatory spondylopathy, lumbar region; M51.16 Intervertebral disc disorders with radiculopathy, lumbar region; M48.061 Spinal stenosis, lumbar region without neurogenic claudication; I10 Essential (primary) hypertension; L40.9 Psoriasis, unspecified; E66.9 Obesity, unspecified; F17.210 Nicotine dependence, cigarettes, uncomplicated; Z85.51 Personal history of malignant neoplasm of bladder; Z79.01 Long term (current) use of anticoagulants; Z96.651 Presence of right artificial knee joint; Z86.711 Personal history of pulmonary embolism; Z79.891 Long term (current) use of opiate analgesic; Z79.899 Other long term (current) drug therapy
CPT/HCPCS: 62323; 64483; 77003; 82962

== ENCOUNTER → 2024-10-14 | Outpatient (CLI) | payer MEDICARE, MEDICAID, SELFPAY | END | disposition home or self-care (01) | LOC: PSN 12:51 | PROVIDERS: PCP Physician Assistant; Referring Provider Nurse Practitioner Acute Care; Visit Provider Nurse Practitioner Acute Care | DX: J45.20 Mild intermittent asthma, uncomplicated (principal) | CPT/HCPCS: 94060; 94726; 94729 ==

== ENCOUNTER 2024-10-15 12:23 | Emergency (ER) | payer MEDICARE, MEDICAID, SELFPAY ==
[2024-10-15] VITALS (7 sets, daily range): BP systolic 102–126; BP diastolic 64–86; PULSE 75–93; RESP 16–20; TEMP 36–36.8; O2SAT 93–100; BMI 54.1
--- NOTE | 2024-10-15 12:28 | ED.VIS.CHEST ---
HPI <Dr. Pool Blackburn DO - Last Filed: 10/18/24 20:46> History of Present Illness Chief Complaint: Chest Pain [facility] <Dr. Pool Blackburn DO - Last Filed: 10/18/24 20:46> [facility] Medical History (Updated 10/15/24 @ 14:[address] Pool Blackburn DO) Obesity Colitis Ventral hernia NAFL (nonalcoholic fatty liver) Long-term insulin use Osteoarthritis Asthma Anxiety Bladder cancer History of acute respiratory failure (01/29/16) Hx of cardiac arrest (01/29/16) Depression Insomnia Pulmonary hypertension Tricuspid regurgitation Left ventricular hypertrophy History of pulmonary embolus (PE) History of DVT (deep vein thrombosis) Obstructive sleep apnea Morbid obesity GERD (gastroesophageal reflux disease) Hypertension Diabetes mellitus, type II, insulin dependent Dyspnea on exertion Chest pain Abnormal stress test Premature ventricular contraction Palpitations Dyspnea Tobacco dependence in remission Restrictive lung disease Lumbosacral radiculopathy Degeneration of lumbosacral intervertebral disc Lumbosacral spondylosis Tear of medial meniscus of left knee DVT (deep venous thrombosis) Pulmonary embolism VTE (venous thromboembolism) Home Medications ?Medication ?Instructions ?Recorded ?Last Taken ?Type omeprazole 20 mg capsule,delayed 20 mg PO BID Gerd #120 caps 08/09/17 10/15/24 Rx release gabapentin 600 mg tablet 600 mg PO TIDCM neuropathy 08/23/17 10/15/24 History atenolol 50 mg tablet 50 mg PO BID blood pressure/heart 09/07/17 10/15/24 History oxycodone-acetaminophen 5 mg-325 1 tab PO TID PRN Pain 01/26/18 10/15/24 History mg tablet losartan 50 mg tablet 50 mg PO DAILY #90 tabs 09/21/20 10/15/24 Rx rivaroxaban 20 mg tablet 20 mg PO DAILY 10/05/20 10/15/24 History fluoxetine 20 mg tablet 20 mg PO DAILY 03/01/21 10/15/24 History blood sugar diagnostic (True #360 ea 04/06/21 Unknown Rx Metrix Glucose Test Strip) tamsulosin 0.4 mg capsule (Flomax) 0.4 mg PO QHS 11/29/21 10/14/24 History cyclobenzaprine 10 mg tablet 10 mg PO BID 09/26/22 10/15/24 History albuterol sulfate 90 mcg/actuation 2 puff inhalation Q4H PRN 03/21/23 01/15/24 Rx aerosol inhaler shortness of breath or wheezing #1 ea fluoxetine 10 mg capsule 10 mg PO DAILY 10/30/23 10/15/24 History oxybutynin chloride 5 mg 5 mg PO DAILY PRN bladder muscle 10/30/23 Unknown History tablet,extended release 24 hr dysfunction phenazopyridine 200 mg tablet 200 mg PO TID PRN pain 10/30/23 Unknown History insulin regular human 100 unit/mL See Protocol subcut Q8H 01/15/24 10/15/24 History injection solution (Novolin R Regular U-100 Insulin) furosemide 40 mg tablet 40 mg PO DAILY 10/15/24 10/15/24 History insulin glargine-yfgn 100 unit/mL 20 unit subcut QHS 10/15/24 10/14/24 History (3 mL) subcutaneous pen metformin 1,000 mg tablet 1,000 mg PO BID 10/15/24 10/15/24 History semaglutide 1 mg/dose (4 mg/3 mL) 1 mg subcut WE 10/15/24 10/09/24 History subcutaneous pen injector (Ozempic) Allergy/AdvReac Type Severity Reaction Status Date / Time quinine Allergy Hives Verified 10/15/24 12:24 morphine AdvReac vein Verified 10/15/24 12:24 irritation Family History Father Sudden cardiac Surgical History History of left heart catheterization (06/27/14) lt foot reconstruction History of hip replacement History of knee surgery History of appendectomy Social History Smoking Status: Heavy Smoker (>10/day) Tobacco: How many years used: 35 how long ago did patient quit smokin, 1.5ppd second hand exposure: Yes quit status: quit date established alcohol intake: current alcohol intake frequency: a few times a month Alcohol type: beer substance use type: does not use caffeine: Yes Type: coffee Number of servings: 2 EXAM <Dr. Pool Blackburn, DO - Last Filed: 10/18/24 20:46> Physical Exam Const Vital Signs: 10/15/24 12:24 10/15/24 12:30 10/15/24 13:23 Temperature 96.8 F L Temperature Source Temporal Pulse Rate 93 87 Respiratory Rate 20 H 17 Blood Pressure 102/86 H 115/64 Blood Pressure Mean 91 81 Pulse Ox 96 96 93 Oxygen Delivery Method Room Air Room Air Room Air 10/15/24 14:00 10/15/24 15:00 Temperature Temperature Source Pulse Rate 86 75 Respiratory Rate 18 18 Blood Pressure 105/74 Blood Pressure Mean 84 Pulse Ox 97 Oxygen Delivery Method Room Air Room Air <Silas Hancock MD - Last Filed: 10/15/24 15:48> Physical Exam Const Vital Signs: 10/15/24 12:24 10/15/24 12:30 10/15/24 13:23 Temperature 96.8 F L Temperature Source Temporal Pulse Rate 93 87 Respiratory Rate 20 H 17 Blood Pressure 102/86 H 115/64 Blood Pressure Mean 91 81 Pulse Ox 96 96 93 Oxygen Delivery Method Room Air Room Air Room Air 10/15/24 14:00 10/15/24 15:00 Temperature Temperature Source Pulse Rate 86 75 Respiratory Rate 18 18 Blood Pressure 105/74 Blood Pressure Mean 84 Pulse Ox 97 Oxygen Delivery Method Room Air Room Air MDM <Dr. Pool Blackburn DO - Last Filed: 10/18/24 20:46> [facility] MDM Narrative Medical decision making narrative: HISTORY OF PRESENT ILLNESS: Chief complaint: Chest pain 53-year-old male history of PE/DVT on Xarelto, type 2 diabetes, GERD, tobacco abuse, hypertension, hyperlipidemia presents with chest pain has been intermittent for 10 days. Notes it is worse with activity. Notes pain reduced left arm jaw and neck. He further states no pain now. Noted worsening pain over the last 10 days. He does note exertional symptoms. No pleuritic pain. Notes compliance with Xarelto. No bleeding diathesis. No cough fever or chills. No leg swelling. No syncope. Patient currently states he still smoking. REVIEW OF SYSTEMS: Pertinent positives: Chest pain Pertinent negatives: As per HPI PHYSICAL EXAM: Nursing triage notes reviewed, Vital signs reviewed Constitutional: please see mdm HENT: MMM Eyes: Pupils equal round and reactive to light, Extraocular muscles intact Neck: No stridor, no JVD, full neck ROM Lungs: Clear to auscultation, No wheezing or rales. No increased work of breathing, no conversational dyspnea, no accessory muscle use, no nasal flaring. No respiratory distress noted Heart: Regular rate and rhythm, No murmurs, No rubs and No gallops, 2+ distal pulses (radial, femoral, posterior tibial) in all extremities Abdomen: Soft, there is no tenderness, rigidity, rebound or guarding, no obvious peritoneal signs, no palpable pulsatile abdominal masses, no auscultated abdominal bruit : No CVAT Extremities: No edema Neuro: No new focal neurological deficits, cranial nerves II through XII intact, 5/5 strength in all present extremities. Intact sensation to light touch in all present extremities, 2+ reflexes bilateral patella tendons. Skin: No rash or lesions noted MEDICAL DECISION MAKING: Chief Complaint: please see HPI External records reviewed: Reviewed prior cardiovascular testing. Reviewed echocardiogram from 2019 which showed ejection fraction of 65% Factors affecting care: As per HPI Social determinants of health: denies cocaine or methamphetamine History obtained from others: none Consults: Cardiology MDM Narrative: Patient was initially hemodynamically stable, afebrile and nontoxic-appearing. Exam without focal cardiopulmonary abnormalities. Patient appeared comfortable in no acute distress with no prior chest pain. I considered the following differential diagnosis: ACS, arrhythmia, anemia, electrolyte disturbance, PE, pneumothorax ALL IMAGES (IF OBTAINED) HAVE BEEN PERSONALLY REVIEWED AND INTERPRETED BY MYSELF. Initial EKG with normal sinus rhythm rate of 91, left ax deviation, normal intervals, no STEMI no ischemic changes High-sensitivity troponin is negative, no evidence of myocardial ischemia CTA of the chest shows no evidence of acute PE BMP without evidence of significant electrolyte abnormalities, no anion gap, no acute kidney injury. CBC without leukocytosis, severe anemia, no thrombocytopenia. Delta troponin negative The synthesis of the patient's history, physical exam, labs images suggest no acute life or limb burning etiology. The patient and/or family, caregivers express understanding. The patient and/or family, caregivers agrees with the plan. Shared decision making: I will have a discussion with the patient and or visitors regarding risk/benefits of further testing or admission. They will be made aware of of the risk/benefits inherent in this decision they will be given the opportunity to voice understanding. Total critical care time today provided was at least 0 minutes. This excludes separately billable procedures. Critical care time (if documented) is secondary to the patient having high probability of clinically significant/life threatening deterioration in the patient's condition which required my urgent intervention. Impression: 1. Chest pain 2. History of PE Dispo: Discharge home This note was generated with [employer] dictation software. It may contain incorrect words, spelling, and punctuation that were not noted in review of the chart prior to signing. Lab Data Labs: Laboratory Results - last 24 hr 10/15/24 10/15/24 12:34 14:47 WBC 9.5 RBC 4.98 Hgb 15.4 Hct 45.1 MCV 90.6 MCH 30.9 MCHC 34.1 RDW Std Deviation 50.3 H RDW Coeff of Laney 15.3 H Plt Count 219 MPV 9.4 Immature Gran % (Auto) 0.300 Neut % (Auto) 50.3 Lymph % (Auto) 37.1 Green % (Auto) 7.4 Eos % (Auto) 4.3 Baso % (Auto) 0.6 Absolute Neuts (auto) 4.8 Absolute Lymphs (auto) 3.53 Nucleated RBC % 0 Sodium 136 Potassium 4.1 Chloride 100 Carbon Dioxide 22.5 Anion Gap 14 BUN 10 Creatinine 0.93 Estim Creat Clear Calc 148.44 Est GFR (MDRD) Non-Af 97 BUN/Creatinine Ratio 10.2 Glucose 135 H Calcium 9.0 Troponin T High Sens < 6 Troponin T Hi Sens 2 Hr < 6 Radiography Diagnostic Testing: Clinical Impression(s) from Imaging Studies Chest CTA 10/15/24 13:28 IMPRESSION: 1. Sensitivity for peripheral pulmonary embolism considerably limited on a technical basis as above. No central or definite pulmonary embolism or other acute abnormality identified. 2. Mild mediastinal lymphadenopathy, nonspecific and potentially reactive in the absence of known malignancy. Correlate with medical history and recommend attention on above follow-up. 3. Hepatomegaly and morphologic features suggesting cirrhosis. Splenomegaly may reflect portal hypertension. Correlate for clinical and laboratory evidence of chronic liver disease. Outpatient ultrasound elastography could be performed as indicated. 4. 5.1 cm LEFT adrenal myelolipoma. Although imaging features are benign, adrenal nodules ? 4 cm carry an increased risk of harboring occult neoplasm and spontaneous hemorrhage and for that reason, surgical consultation is recommended per ACR recommendations. If there is a history of known malignancy, PET/CT or biopsy could additionally be considered, as indicated. 5. Additional description as above. Reading Location: [facility] <Silas Hancock MD - Last Filed: 10/15/24 15:48> [facility] Lab Data Labs: Laboratory Results - last 24 hr 10/15/24 10/15/24 12:34 14:47 WBC 9.5 RBC 4.98 Hgb 15.4 Hct 45.1 MCV 90.6 MCH 30.9 MCHC 34.1 RDW Std Deviation 50.3 H RDW Coeff of Laney 15.3 H Plt Count 219 MPV 9.4 Immature Gran % (Auto) 0.300 Neut % (Auto) 50.3 Lymph % (Auto) 37.1 Green % (Auto) 7.4 Eos % (Auto) 4.3 Baso % (Auto) 0.6 Absolute Neuts (auto) 4.8 Absolute Lymphs (auto) 3.53 Nucleated RBC % 0 Sodium 136 Potassium 4.1 Chloride 100 Carbon Dioxide 22.5 Anion Gap 14 BUN 10 Creatinine 0.93 Estim Creat Clear Calc 148.44 Est GFR (MDRD) Non-Af 97 BUN/Creatinine Ratio 10.2 Glucose 135 H Calcium 9.0 Troponin T High Sens < 6 Troponin T Hi Sens 2 Hr < 6 Radiography Diagnostic Testing: Clinical Impression(s) from Imaging Studies Chest CTA 10/15/24 13:28 IMPRESSION: 1. Sensitivity for peripheral pulmonary embolism considerably limited on a technical basis as above. No central or definite pulmonary embolism or other acute abnormality identified. 2. Mild mediastinal lymphadenopathy, nonspecific and potentially reactive in the absence of known malignancy. Correlate with medical history and recommend attention on above follow-up. 3. Hepatomegaly and morphologic features suggesting cirrhosis. Splenomegaly may reflect portal hypertension. Correlate for clinical and laboratory evidence of chronic liver disease. Outpatient ultrasound elastography could be performed as indicated. 4. 5.1 cm LEFT adrenal myelolipoma. Although imaging features are benign, adrenal nodules ? 4 cm carry an increased risk of harboring occult neoplasm and spontaneous hemorrhage and for that reason, surgical consultation is recommended per ACR recommendations. If there is a history of known malignancy, PET/CT or biopsy could additionally be considered, as indicated. 5. Additional description as above. Reading Location: [facility] Treatment and Re-Evaluation :: Dr. Hancock: Patient endorsed to me by Dr. Blackburn to check a 2-hour troponin on this patient having intermittent chest pain over the last few days/week. I reviewed the initial troponin which was less than 6. Repeat troponin at 2 hours is also less than 6. Upon repeat examination, he is resting comfortably on the cot. I feel he can be discharged as planned to follow-up with his primary care provider, and that he has been ruled out for ACS with biomarkers. Return instructions to the emergency department were reviewed. Disposition is discharged home in stable condition. Discharge Plan Triage Chief Complaint: Chest Pain ED Provider: Pool Blackburn Dx/Rx/DC Orders Clinical Impression: Chest pain Instructions: Chest Pain [facility] Prescriptions: No Action rivaroxaban 20 mg tablet 20 mg PO DAILY albuterol sulfate 90 mcg/actuation HFA aerosol inhaler 2 puff INHALATION Q4H PRN (Reason: shortness of breath or wheezing) Qty: 1 3RF Rx Instructions: administer with spacer omeprazole 20 MG capsule 20 mg PO BID Qty: 120 0RF gabapentin 600 MG tablet 600 mg PO TIDCM atenolol 50 MG tablet 50 mg PO BID oxycodone-acetaminophen 1 TABLET tablet 1 tab PO TID PRN (Reason: Pain) Patient Comments: PT STATES HE NORMALLY ONLY TAKES 1-2 TIMES A DAY, SOMETIMES THREE TIMES fluoxetine 20 mg Tablet 20 mg PO DAILY Patient Comments: PT TAKES 10MG AND 20 MG TO EQUAL 30MG DOSE tamsulosin [Flomax] 0.4 mg Capsule 0.4 mg PO QHS cyclobenzaprine 10 mg Tablet 10 mg PO BID Novolin R Regular U100 Insulin 100 unit/mL solution See Protocol subcut Q8H Protocol: 6. Sliding Scale Insulin Custom Condition: mg/dl range Dose/Route: Number of Units Condition: 150-180 Dose/Route: 1 Condition: 181-250 Dose/Route: 2 Condition: 250+ Dose/Route: 3 Protocol Text: Custom Sliding Scale- TAKE WITH 5 UNITS AT EACH MEAL Rx Instructions: TAKE 5ML PLUS SLIDING SCALE WITH MEAL fluoxetine 10 mg capsule 10 mg PO DAILY Patient Comments: PT TAKES 10MG AND 20 MG TO EQUAL 30MG DOSE. phenazopyridine 200 mg tablet 200 mg PO TID PRN (Reason: pain) Patient Comments: I use it after surgery oxybutynin chloride 5 mg tablet extended release 24hr 5 mg PO DAILY PRN (Reason: bladder muscle dysfunction) metformin 1,000 mg tablet 1,000 mg PO BID insulin glargine-yfgn 100 unit/mL (3 mL) insulin pen 20 unit subcut QHS furosemide 40 mg tablet 40 mg PO DAILY Ozempic 1 mg/dose (4 mg/3 mL) pen injector 1 mg subcut WE losartan 50 mg tablet 50 mg PO DAILY Qty: 90 3RF (DME) True Metrix Glucose Test Strip Strip See Rx Instructions .ROUTE .MEDSUPPLY Qty: 360 6RF Rx Instructions: 4x/day Primary Care Provider: Edin Mendoza Referrals: Mich Miranda MD [Med Staff - Active Staff] - Edin Mendoza PA [Primary Care Provider] - Activity Restrictions/Additional Instructions: Thank you for trusting us with your care today! Your labs images were unremarkable. Specifically no sign of ACS, PE, aortic pathology, pneumonia, anemia or electrolyte disturbances. Please take Tylenol (2 pills, 650 mg), ibuprofen (2 pills, 400 mg) every 6 hours as needed for pain and fever control. Please return to the emergency department if your symptoms change or worsen. Please follow with your primary care physician and/or deputy register of deeds for further outpatient evaluation and management. Print Language: Kazakh Disposition Disposition: Home, Self Care Discharge Date/Time: 10/15/24 16:06
--- NOTE | 2024-10-15 12:30 | EKG12_ITS ---
Test Reason : CP Blood Pressure : */* mmHG Vent. Rate : 91 BPM Atrial Rate : 91 BPM P-R Int : 186 ms QRS Dur : 76 ms QT Int : 376 ms P-R-T Axes : 42 6 22 degrees QTcB Int : 462 ms Normal sinus rhythm Normal ECG Confirmed by Aaron Duckworth ([id number]), story editor JOHNATHON BARBER ([id number]) on 10/18/2024 12:03:52 PM Referred By: TA/UG Confirmed By: Aaron Duckworth
[2024-10-15 12:44] LABS: Absolute Lymphocyte Count 3.53 X10^3/uL (0.83-4.51); Absolute Neutrophil Count 4.8 X10^3/uL (2.0-7.7); Basophil# 0.06 X10^3/uL; Basophil% 0.6 % (0-1); Eosinophil# 0.41 X10^3/uL; Eosinophils% 4.3 % (0-5); Hematocrit 45.1 % (40-54); Hemoglobin 15.4 g/dL (13.0-16.5); Lymphocyte # 3.53 X10^3/ul (0.83-4.51); Lymphocyte % 37.1 % (19-41); Mean Corp Hgb Conc 34.1 g/dL (32-36); Mean Corpuscular Hgb 30.9 pg (27.0-32.0); Mean Corpuscular Volume 90.6 fL (80-94); Mean Platelet Vol. 9.4 fl (6.2-12.0); Monocyte% 7.4 % (0-10); NRBC Flagged by Analyzer 0 % (0-5); Neutrophil # 4.78 X10^3/uL (2.7-7.7); Neutrophil % 50.3 % (47-70); Platelet Count 219 K/mm3 (150-450); RBC Distribution Width CV 15.3 % (11.6-14.6); RBC Distribution Width SD 50.3 fl (35.1-43.9); Red Blood Count 4.98 M/mm3 (4.6-6.2); White Blood Count 9.5 K/mm3 (4.4-11.0)
[2024-10-15 13:07] LABS: Anion Gap 14 (5-15); BUN 10 mg/dL (4-19); BUN/Creat Ratio 10.2 RATIO (10-20); Carbon Dioxide 22.5 mmol/L (21.0-32.0); Chloride 100 mmol/L (98-108); Creatinine, Serum 0.93 mg/dL (0.70-1.20); EST Glomerular Filtration Rate 97 (>60); Estimated Creatinine Clearance 148.44 ml/min (50-250); Glucose 135 mg/dL (70-99); Potassium 4.1 mmol/L (3.3-5.1); Sodium Level 136 mmol/L (133-145); Troponin T High Sensitivity < 6 ng/L (<=22)
--- NOTE | 2024-10-15 13:28 | CT_ITS ---
PROCEDURE: CTA CHEST W/WO CONTRAST, 10/15/2024 REASON FOR EXAM: CHEST PAIN, HISTORY OF PE TECHNIQUE: CTA chest was performed with IV contrast. Multiplanar reformats and MIP reconstructions were generated. IV contrast: Isovue 370 VOLUME: 100mL RADIATION DOSE SUMMARY: CTDlvol: 19.0+ 16.92+ 15.83+ 22.33 mGy DLP: 1482.81 mGycm One or more dose reduction techniques were used (e.g., Automated exposure control, adjustment of the mA and/or kV according to patient size, use of iterative reconstruction technique). COMPARISON: None FINDINGS: Exam limited by suboptimal opacification of the pulmonary arterial tree despite repeat scanning, with maximum attenuation 181 HU. Additional mild motion limitation on repeat imaging further limits sensitivity. Slight additional limitation related to generalized photon starvation. This combination considerably limits sensitivity for peripheral pulmonary embolism. Heart/pericardium: Unremarkable. Aorta: Two-vessel arch anatomy, normal variant. Pulmonary arteries: Normal in caliber. No central or definite pulmonary embolism is identified. Lymph nodes: Subcarinal node, 12 mm short axis.. Lungs/pleura: Similar 9 x 9 mm subpleural LEFT upper lobe nodule is centrally high in density but without definite calcification (series 2.1, image 154).. Airways: Unremarkable. Chest wall: Unremarkable. Upper abdomen: Hepatomegaly and morphologic features suggesting cirrhosis.. Splenomegaly, 18.1 cm coronal. Macroscopic fat containing 5.1 x 5.1 x 5.0 cm LEFT adrenal myelolipoma. Musculoskeletal: Mild spondylosis.. CT/CTA Chest W/WO Contrast IMPRESSION: 1. Sensitivity for peripheral pulmonary embolism considerably limited on a tech nical basis as above. No central or definite pulmonary embolism or other acute abnormality identified. 2. Mild mediastinal lymphadenopathy, nonspecific and potentially reactive in th e absence of known malignancy. Correlate with medical history and recommend attention on above follow-up. 3. Hepatomegaly and morphologic features suggesting cirrhosis. Splenomegaly ma y reflect portal hypertension. Correlate for clinical and laboratory evidence of chronic liver disease. Outpatient ultrasou nd elastography could be performed as indicated. 4. 5.1 cm LEFT adrenal myelolipoma. Although imaging features are benign, adre nal nodules ? 4 cm carry an increased risk of harboring occult neoplasm and spontaneous hemorrhage and for that reason, surgi leann consultation is recommended per ACR recommendations. If there is a history of known malignancy, PET/CT or biopsy c ould additionally be considered, as indicated. 5. Additional description as above. Reading Location: [id number]
[2024-10-15 15:35] LABS: Troponin T High Sens 2 HR < 6 ng/L (<=22)
== END 2024-10-15 16:06 | disposition home or self-care (01) ==
PROVIDERS: Emergency Provider Emergency Medicine; PCP Physician Assistant; Visit Provider Emergency Medicine
DX: R07.89 Other chest pain (principal); E11.9 Type 2 diabetes mellitus without complications; Z79.4 Long term (current) use of insulin; I10 Essential (primary) hypertension; E78.5 Hyperlipidemia, unspecified; K76.0 Fatty (change of) liver, not elsewhere classified; K21.9 Gastro-esophageal reflux disease without esophagitis; F32.A Depression, unspecified; F41.9 Anxiety disorder, unspecified; G47.33 Obstructive sleep apnea (adult) (pediatric); J45.909 Unspecified asthma, uncomplicated; F17.200 Nicotine dependence, unspecified, uncomplicated; Z79.85 Long-term (current) use of injectable non-insulin antidiabetic drugs; Z79.84 Long term (current) use of oral hypoglycemic drugs; Z79.01 Long term (current) use of anticoagulants; Z86.74 Personal history of sudden cardiac arrest; Z85.51 Personal history of malignant neoplasm of bladder; Z86.711 Personal history of pulmonary embolism; Z86.718 Personal history of other venous thrombosis and embolism; Z79.899 Other long term (current) drug therapy
CPT/HCPCS: 71275; 80048; 84484; 85025; 93005; 99284; Q9967; A4216

== ENCOUNTER → 2024-11-26 | Outpatient (CLI) | payer MEDICARE, SELFPAY ==
[2024-11-26 16:55] LABS: Cholesterol 201 mg/dL (<=200); High Density Lipoprotein 32 mg/dL; Low Density Lipoprotein Calc. 137 mg/dL; Triglycerides 159 mg/dL; Very Low Density Lipoprotein 32 mg/dL (5-40)
== END | disposition home or self-care (01) ==
LOC: LAB 13:23
PROVIDERS: PCP Physician Assistant; Referring Provider Internal Medicine Cardiovascular Disease; Visit Provider Internal Medicine Cardiovascular Disease
DX: I10 Essential (primary) hypertension (principal)
CPT/HCPCS: 36415; 80061

== ENCOUNTER → 2024-12-10 | Outpatient (CLI) | payer MEDICARE, SELFPAY ==
[2024-12-10 13:00] LABS: Hematocrit 40.2 % (40-54); Hemoglobin 13.6 g/dL (13.0-16.5); Immature Granulocytes Count 0.040 X10^3/uL (0.0-0.0); Mean Corp Hgb Conc 33.8 g/dL (32-36); Mean Corpuscular Volume 90.3 fL (80-94); Mean Platelet Vol. 10.0 fl (6.2-12.0); NRBC Flagged by Analyzer 0 % (0-5); Platelet Count 204 K/mm3 (150-450); RBC Distribution Width CV 14.6 % (11.6-14.6); RBC Distribution Width SD 48.3 fl (35.1-43.9); Red Blood Count 4.45 M/mm3 (4.6-6.2); White Blood Count 8.3 K/mm3 (4.4-11.0)
[2024-12-10 13:17] LABS: Prothrombin Time (Protime)PT. 21.9 SECONDS (11.7-14.9)
[2024-12-10 13:18] LABS: Partial Thromboplast Time 38.3 Seconds (24.1-36.2)
[2024-12-10 13:55] LABS: Anion Gap 15 (5-15); BUN 10 mg/dL (4-19); BUN/Creat Ratio 12.3 RATIO (10-20); Calcium,Total 8.7 mg/dL (7.6-11.0); Carbon Dioxide 21.9 mmol/L (21.0-32.0); Chloride 99 mmol/L (98-108); Glucose 111 mg/dL (70-99); Potassium 4.0 mmol/L (3.3-5.1)
== END | disposition home or self-care (01) ==
PROVIDERS: PCP Physician Assistant; Referring Provider Student in an Organized Health Care Education/Training Program; Visit Provider Student in an Organized Health Care Education/Training Program
DX: I20.9 Angina pectoris, unspecified (principal); I10 Essential (primary) hypertension; Z79.01 Long term (current) use of anticoagulants; Z51.81 Encounter for therapeutic drug level monitoring
CPT/HCPCS: 36415; 80048; 85025; 85610; 85730

== ENCOUNTER → 2024-12-20 | Outpatient (CLI) | payer MEDICARE, SELFPAY ==
--- NOTE | 2024-12-20 13:10 | CT_ITS ---
PROCEDURE: LOW DOSE CT LUNG SCREENING 12/20/2024 REASON FOR EXAM: CURRENT SMOKER 1 pack per day for 38 years. History of bladder cancer. TECHNIQUE: LOW DOSE CT LUNG SCREENING Coronal and Sagittal reconstruction series were provided. One or more dose reduction techniques were used (e.g., Automated exposure control, adjustment of the mA and/or kV according to patient size, use of iterative reconstruction technique). REFERENCE LINK: [facility] Lung-RADS RADIATION DOSE SUMMARY: CTDlvol: 4.56 mGy DLP: 156.39 mGycm COMPARISON: Prior study dated November 01, 2023. FINDINGS: PULMONARY NODULES: (Only nodules >3mm are reported) Nodules described below are on series 1 unless otherwise specified. Pulmonary Nodules: Stable 8 mm well-defined nodule in the anterior medial aspect of the left upper lobe as seen on axial image 145. Faint calcifications are seen within it. Hardware:None Lymph Nodes:None Heart and Vasculature:The heart is nonenlarged. Coronary Artery Calcifications: Present Lungs and Airways: Unremarkable Pleura:Unremarkable Upper Abdomen:Unremarkable Bones:Degenerative changes of the thoracic spine. CT/Low Dose CT Lung Screening IMPRESSION: Stable examination. 12 month follow-up recommended. Coronary artery calcification (CAC) is is present Lung-RADS Category: 2 BENIGN (BASED ON IMAGING FEATURES OR INDOLENT BEHAVIOR). RECOMMEND 12-MONTH SCREENING LDCT. Other Significant Findings: Reading Location: [place] [id number]
== END | disposition home or self-care (01) ==
LOC: CT 13:09
PROVIDERS: PCP Physician Assistant; Referring Provider Nurse Practitioner Family; Visit Provider Nurse Practitioner Family
DX: F17.210 Nicotine dependence, cigarettes, uncomplicated (principal)
CPT/HCPCS: 71271

== ENCOUNTER 2024-12-24 07:19 | Day surgery (SDC) | payer MEDICARE, SELFPAY ==
[2024-12-23 09:05] VITALS: BMI 54.3
== END 2024-12-24 11:20 | disposition home or self-care (01) ==
PROVIDERS: PCP Physician Assistant; Referring Provider Internal Medicine Cardiovascular Disease; Visit Provider Internal Medicine Cardiovascular Disease
DX: I25.119 Atherosclerotic heart disease of native coronary artery with unspecified angina pectoris (principal); I27.20 Pulmonary hypertension, unspecified; E66.01 Morbid (severe) obesity due to excess calories; Z68.43 Body mass index [BMI] 50.0-59.9, adult; E11.9 Type 2 diabetes mellitus without complications; Z79.4 Long term (current) use of insulin; I10 Essential (primary) hypertension; K21.9 Gastro-esophageal reflux disease without esophagitis; K76.0 Fatty (change of) liver, not elsewhere classified; F32.A Depression, unspecified; F41.9 Anxiety disorder, unspecified; G47.33 Obstructive sleep apnea (adult) (pediatric); J45.909 Unspecified asthma, uncomplicated; F17.210 Nicotine dependence, cigarettes, uncomplicated; Z79.01 Long term (current) use of anticoagulants; Z79.85 Long-term (current) use of injectable non-insulin antidiabetic drugs; Z85.51 Personal history of malignant neoplasm of bladder; Z79.84 Long term (current) use of oral hypoglycemic drugs; Z79.51 Long term (current) use of inhaled steroids; Z86.74 Personal history of sudden cardiac arrest; Z86.718 Personal history of other venous thrombosis and embolism; Z86.711 Personal history of pulmonary embolism; Z79.899 Other long term (current) drug therapy
CPT/HCPCS: 93458; 99152; 99153; Q9967; C1769; C1894

== ENCOUNTER 2025-01-03 04:35 | Emergency (ER) | payer MEDICARE, SELFPAY ==
[2025-01-03 04:37] VITALS: BP 168/87; PULSE 94; RESP 18; TEMP 36.9; O2SAT 97; BMI 54.1
[2025-01-03 04:38] VITALS: BP 168/87; PULSE 94; RESP 18; TEMP 36.9; O2SAT 97
--- NOTE | 2025-01-03 04:55 | RAD_ITS ---
PROCEDURE: ANKLE MIN 3 VIEWS 01/03/2025 REASON FOR EXAM: PAIN TECHNIQUE: ANKLE MIN 3 VIEWS COMPARISON: No FINDINGS: Anterior and lateral ankle swelling. No acute fracture or dislocation. RAD/Ankle min 3 Views IMPRESSION: Soft tissue injury Reading Location: [place] [id number]
[2025-01-03] MEDS: Ketorolac 30 MG/ML Syringe IM (05:07)
--- NOTE | 2025-01-03 05:10 | RAD_ITS ---
PROCEDURE: FOOT MIN 3 VIEWS 01/03/2025 REASON FOR EXAM: PAIN TECHNIQUE: FOOT MIN 3 VIEWS COMPARISON: No FINDINGS: No fracture or dislocation. No foot soft tissue injury. RAD/Foot min 3 Views IMPRESSION: No acute findings. Reading Location: [place] [address]
--- NOTE | 2025-01-03 05:38 | ED.VIS.LOWEX ---
HPI History of Present Illness Chief Complaint: Lower Extremity Injury Informant: patient Narrative Narrative: Presents worsening pain to right foot and swelling ankle since yesterday. 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 Currently lives in an RV. Up-and-down steps all the time. No direct traumas. Concerns of any fractures. He has no fever or chills. Diabetic with neuropathy. Chronic back pain follow-up pain management took his Percocet 8 PM with no relief. He is on Xarelto for DVTs and PEs. He drove himself here. Prior similar symptoms: No PFSH PFS Medical History Colitis Ventral hernia NAFL (nonalcoholic fatty liver) Long-term insulin use Osteoarthritis Asthma Anxiety Bladder cancer History of acute respiratory failure (01/29/16) Hx of cardiac arrest (01/29/16) Depression Insomnia Pulmonary hypertension Tricuspid regurgitation Left ventricular hypertrophy History of pulmonary embolus (PE) History of DVT (deep vein thrombosis) Obstructive sleep apnea GERD (gastroesophageal reflux disease) Hypertension Diabetes mellitus, type II, insulin dependent Dyspnea on exertion Chest pain Abnormal stress test Premature ventricular contraction Palpitations Dyspnea Tobacco dependence in remission Restrictive lung disease Lumbosacral radiculopathy Degeneration of lumbosacral intervertebral disc Lumbosacral spondylosis Tear of medial meniscus of left knee DVT (deep venous thrombosis) Pulmonary embolism VTE (venous thromboembolism) Home Medications ?Medication ?Instructions ?Recorded ?Last Taken ?Type omeprazole 20 mg capsule,delayed 20 mg PO BID Gerd #120 caps 08/09/17 10/15/24 Rx release gabapentin 600 mg tablet 600 mg PO TIDCM neuropathy 08/23/17 10/15/24 History atenolol 50 mg tablet 50 mg PO BID blood pressure/heart 09/07/17 12/24/24 History losartan 50 mg tablet 50 mg PO DAILY #90 tabs 09/21/20 12/24/24 Rx rivaroxaban 20 mg tablet 20 mg PO DAILY 10/05/20 10/15/24 History fluoxetine 20 mg tablet 20 mg PO DAILY 03/01/21 10/15/24 History blood sugar diagnostic (True #360 ea 04/06/21 Unknown Rx Metrix Glucose Test Strip) tamsulosin 0.4 mg capsule (Flomax) 0.4 mg PO QHS 11/29/21 10/14/24 History fluoxetine 10 mg capsule 10 mg PO DAILY 10/30/23 10/15/24 History insulin regular human 100 unit/mL See Protocol subcut Q8H 01/15/24 10/15/24 History injection solution (Novolin R Regular U-100 Insulin) furosemide 40 mg tablet 40 mg PO DAILY 10/15/24 10/15/24 History insulin glargine-yfgn 100 unit/mL 20 unit subcut QHS 10/15/24 10/14/24 History (3 mL) subcutaneous pen metformin 1,000 mg tablet 1,000 mg PO BID 10/15/24 10/15/24 History semaglutide 1 mg/dose (4 mg/3 mL) 1 mg subcut WE 10/15/24 10/09/24 History subcutaneous pen injector (Ozempic) cyclobenzaprine 10 mg tablet 10 mg PO TID 11/18/24 Unknown History oxycodone-acetaminophen 5 mg-325 See Rx Instructions PO QDAY PRN 11/18/24 01/02/25 20:00 History mg tablet Pain amlodipine 5 mg tablet 5 mg PO QDAY #90 tabs 11/26/24 12/24/24 Rx aspirin 81 mg tablet,delayed 81 mg PO QDAY #90 tabs 11/26/24 12/24/24 Rx release (Adult Aspirin Regimen) nitroglycerin 0.4 mg sublingual 0.4 mg sublingual Q5-15M PRN chest 11/26/24 Unknown Rx tablet pain #14 tabs pantoprazole 20 mg tablet,delayed 20 mg PO QDAY #90 tabs 11/26/24 Unknown Rx release (Protonix) albuterol sulfate 90 mcg/actuation 2 puff inhalation Q4H PRN 11/27/24 Unknown Rx aerosol inhaler shortness of breath or wheezing #1 ea atorvastatin 20 mg tablet (Lipitor) 20 mg PO QDAY #30 tabs 12/24/24 Unknown Rx oxybutynin chloride 5 mg 5 mg PO DAILY 01/03/25 Unknown History tablet,extended release 24 hr Allergy/AdvReac Type Severity Reaction Status Date / Time quinine Allergy Hives Verified 01/03/25 04:36 morphine AdvReac vein Verified 01/03/25 04:36 irritation Family History Father Sudden cardiac Myocardial infarction Mother Heart disease Grandmother Alzheimer's disease Other Diabetes Surgical History H/O radiofrequency ablation (RFA) of nerve of lumbar spine H/O transurethral resection of bladder tumor (TURBT) (~11/2018) History of foot surgery History of left heart catheterization (06/27/14) History of hip replacement History of knee surgery History of appendectomy Social History Smoking Status: Current every day smoker tobacco type: cigarettes Tobacco: How many years used: 35 second hand exposure: Yes alcohol intake: current alcohol intake frequency: a few times a week Alcohol type: beer substance use type: does not use caffeine: Yes Type: coffee Number of servings: 2 ROS ROS ED Constitutional Constitutional ED: Denies fever(s) Cardiovascular Cardiovascular: Denies chest pain Respiratory/Chest Respiratory/Chest: Denies cough Gastrointestinal Gastrointestinal: Denies diarrhea or vomiting Musculoskeletal Musculoskeletal: Reports other Details: Right foot pain, right ankle swelling Integumentary Denies rash or wounds Neurologic Neurologic: Denies weakness EXAM Physical Exam Const Vital Signs: 01/03/25 04:37 01/03/25 04:38 01/03/25 06:06 Temperature 98.4 F 98.4 F 98 F Temperature Source Oral Oral Pulse Rate 94 94 79 Respiratory Rate 18 18 18 Blood Pressure 168/87 H 168/87 H 125/77 H Blood Pressure Mean 114 114 93 Pulse Ox 97 97 95 Oxygen Delivery Method Room Air Room Air Positive well nourished and well developed General Appearance ED: well developed HEENT normocephalic and atraumatic Eyes General Eye ED: Yes normal appearance of both eyes Neck full ROM Resp normal respiratory effort and normal air movement Cardio regular rate and regular rhythm GI soft to palpation Extremity Extremity Narrative: Right lower extremity: No knee tenderness. Mild swelling lateral ankle however no tenderness no redness no warmth. Range of motion without pain. Mild pain midfoot however a lot more pain along the plantar fascia. Skin is intact. Neuro oriented x3 Skin no rashes or lesions noted and no wounds MDM MDM MDM Narrative Medical decision making narrative: Interventions / MDM: Differential diagnosis: Plantar fasciitis, ankle swelling Diagnosis considered but do not suspect: No clinical septic joint. DVT however chronic Xarelto. Fracture however x-ray negative. My EKG interpretation: N/A Imaging independently reviewed and interpreted by myself: Right ankle x-ray 3 views: Soft tissue swelling anterior lateral with no joint effusion. Right foot x-ray: No fracture noted. Also read by radiology. External documents reviewed: N/A Test considered but not ordered:N/A ED course: Patient drove himself here. Primary pain in his foot along the plantar fascia mild midfoot tenderness. With swelling x-ray ankle and foot ordered. He is given 1 dose of Toradol as he drove here. X-rays negative. Mild discomfort plantar aspects distant with plantar fasciitis. Will place him in a walking boot. Podiatry follow-up given. He has chronic pain medicines that he takes at home. All questions were answered. Re-evaluation: stable Disposition discussed with patient/family/significant other: Patient Case discussed with consulting clinician: N/A This note was generated with [employer] dictation software. It may contain incorrect words, spelling, and punctuation that were not noted in checking the note before signing. Radiography Diagnostic Testing: Clinical Impression(s) from Imaging Studies Ankle X-Ray 01/03/25 04:55 IMPRESSION: Soft tissue injury Reading Location: [place] [address] Foot X-Ray 01/03/25 05:10 IMPRESSION: No acute findings. Reading Location: [place] [address] Discharge Plan Triage Chief Complaint: Lower Extremity Injury ED Provider: Panfilo Mittal Dx/Rx/DC Orders Clinical Impression: Plantar fasciitis, right, Foot pain, right Instructions: ED Plantar Fasciitis Prescriptions: No Action rivaroxaban 20 mg tablet 20 mg PO DAILY Patient Comments: May resume 7/16 am albuterol sulfate 90 mcg/actuation HFA aerosol inhaler 2 puff INHALATION Q4H PRN (Reason: shortness of breath or wheezing) Qty: 1 3RF Rx Instructions: administer with spacer amlodipine 5 mg tablet 5 mg PO QDAY Qty: 90 3RF aspirin [Adult Aspirin Regimen] 81 mg tablet,delayed release (DR/EC) 81 mg PO QDAY Qty: 90 3RF pantoprazole [Protonix] 20 mg tablet,delayed release (DR/EC) 20 mg PO QDAY Qty: 90 3RF nitroglycerin 0.4 mg tablet, sublingual 0.4 mg sublingual Q5-15M PRN (Reason: chest pain) Qty: 14 3RF Rx Instructions: do not exceed 3 doses per episode omeprazole 20 MG capsule 20 mg PO BID Qty: 120 0RF gabapentin 600 MG tablet 600 mg PO TIDCM atenolol 50 MG tablet 50 mg PO BID oxycodone-acetaminophen 5-325 mg tablet See Rx Instructions PO QDAY PRN (Reason: Pain) Patient Comments: PT STATES HE NORMALLY ONLY TAKES 1-2 TIMES A DAY, SOMETIMES THREE TIMES Rx Instructions: 1-2 tabs orally daily PRN; fluoxetine 20 mg Tablet 20 mg PO DAILY Patient Comments: PT TAKES 10MG AND 20 MG TO EQUAL 30MG DOSE tamsulosin [Flomax] 0.4 mg Capsule 0.4 mg PO QHS cyclobenzaprine 10 mg tablet 10 mg PO TID Novolin R Regular U100 Insulin 100 unit/mL solution See Protocol subcut Q8H Protocol: 6. Sliding Scale Insulin Custom Condition: mg/dl range Dose/Route: Number of Units Condition: 150-180 Dose/Route: 1 Condition: 181-250 Dose/Route: 2 Condition: 250+ Dose/Route: 3 Protocol Text: Custom Sliding Scale- TAKE WITH 5 UNITS AT EACH MEAL Rx Instructions: TAKE 5ML PLUS SLIDING SCALE WITH MEAL oxybutynin chloride 5 mg tablet extended release 24hr 5 mg PO DAILY fluoxetine 10 mg capsule 10 mg PO DAILY Patient Comments: PT TAKES 10MG AND 20 MG TO EQUAL 30MG DOSE. metformin 1,000 mg tablet 1,000 mg PO BID Patient Comments: hold x 48hours then resume normal dose insulin glargine-yfgn 100 unit/mL (3 mL) insulin pen 20 unit subcut QHS furosemide 40 mg tablet 40 mg PO DAILY Ozempic 1 mg/dose (4 mg/3 mL) pen injector 1 mg subcut WE losartan 50 mg tablet 50 mg PO DAILY Qty: 90 3RF (DME) True Metrix Glucose Test Strip Strip See Rx Instructions .ROUTE .MEDSUPPLY Qty: 360 6RF Rx Instructions: 4x/day atorvastatin [Lipitor] 20 mg tablet 20 mg PO QDAY Qty: 30 6RF Primary Care Provider: Edin Mendoza: Daryl Soriano DPM [Med Staff - Active Staff] - 1-2 Weeks Edin Mendoza PA [Primary Care Provider] - Activity Restrictions/Additional Instructions: X-ray ankle and foot negative. Use walking boot for comfort as needed. Continue your home pain medicines. Follow-up with Dr. Soriano podiatry. Print Language: Danish Disposition Disposition: Home, Self Care Discharge Date/Time: 01/03/25 06:29
[2025-01-03 06:06] VITALS: BP 125/77; PULSE 79; RESP 18; TEMP 36.6; O2SAT 95
== END 2025-01-03 06:29 | disposition home or self-care (01) ==
PROVIDERS: Emergency Provider Emergency Medicine; PCP Physician Assistant; Visit Provider Emergency Medicine
DX: M72.2 Plantar fascial fibromatosis (principal); E11.40 Type 2 diabetes mellitus with diabetic neuropathy, unspecified; I10 Essential (primary) hypertension; Z79.01 Long term (current) use of anticoagulants; Z86.718 Personal history of other venous thrombosis and embolism; M79.671 Pain in right foot; F17.210 Nicotine dependence, cigarettes, uncomplicated
CPT/HCPCS: 73610; 73630; 96372; 99283

== ENCOUNTER → 2025-01-13 | Outpatient (CLI) | payer MEDICARE, SELFPAY ==
[2025-01-13 10:46] LABS: Hematocrit 39.3 % (40-54); Hemoglobin 13.4 g/dL (13.0-16.5); Immature Granulocytes Count 0.020 X10^3/uL (0.0-0.0); Mean Corp Hgb Conc 34.1 g/dL (32-36); Mean Corpuscular Volume 91.6 fL (80-94); Mean Platelet Vol. 9.7 fl (6.2-12.0); NRBC Flagged by Analyzer 0 % (0-5); Platelet Count 208 K/mm3 (150-450); RBC Distribution Width CV 14.1 % (11.6-14.6); RBC Distribution Width SD 47.3 fl (35.1-43.9); Red Blood Count 4.29 M/mm3 (4.6-6.2); White Blood Count 7.5 K/mm3 (4.4-11.0)
[2025-01-13 10:52] LABS: CRP 32.40 mg/L (0.0-3.0); Uric Acid 8.0 mg/dL (3.5-7.2)
== END | disposition home or self-care (01) ==
LOC: LAB 09:45
PROVIDERS: PCP Physician Assistant
DX: M25.571 Pain in right ankle and joints of right foot (principal); M25.471 Effusion, right ankle
CPT/HCPCS: 36415; 84550; 85025; 85652; 86140

== ENCOUNTER → 2025-02-20 | Outpatient (CLI) | payer MEDICARE, SELFPAY ==
--- NOTE | 2025-02-20 13:41 | MRI_ITS ---
PROCEDURE: LOWER EXT/NO JT/W/O 02/20/2025 REASON FOR EXAM: ARTHRITIS TECHNIQUE: Procedure Code: [id number] Modality: MR Procedure: LOWER EXT/NO JT/W/O Multiplanar and multisequence images were obtained without IV contrast administration. COMPARISON: COMPARISON : None FINDINGS: Bone Marrow: Patchy edema present throughout the cuboid, navicular, calcaneus and base of proximal metatarsals consistent with multifocal areas of degenerative change with loss of cartilage . More focal area of linear T2 signal involving the head of the 3rd metatarsal with a dorsal erosion. No abnormal signal within the toes. 1st and 5th metatarsophalangeal joints. No joint effusion or dislocation. Effusion: No significant joint effusion. Multilevel degenerative changes present including the Soft Tissues: Edema of the 3rd interosseous muscle and lateral head of the adductor hallucis muscle. No abnormal fluid collection. Normal neurovascular structures. No solid mass. Ligaments and Tendons: Normal flexor and extensor tendons. MRI/Lower Ext/No Jt/w/o IMPRESSION: Extensive degenerative changes throughout the forefoot and tarsal bones as well as degenerative changes of the 1st and 5th metatarsophalangeal joints. No specific marrow edema involving the 3rd interosseous muscle. Edema at the head of the 4th metatarsal with associated dorsal erosion. Degene rative changes are favored.. Reading Location: [id number]
--- NOTE | 2025-02-20 13:41 | MRI_ITS ---
PROCEDURE: LOWER EXT JOINT ONLY (ROUTINE) 02/20/2025 REASON FOR EXAM: RT ANKLE PAIN TECHNIQUE: Procedure Code: MRILEJ Modality: MR Procedure: LOWER EXT JOINT ONLY (ROUTINE) Multiplanar and multisequence images were obtained without IV contrast administration. COMPARISON: COMPARISON : None FINDINGS: Bone: Extensive degenerative changes throughout the tarsal bones with significant bone marrow edema along the cuboid and tarsometatarsal joint with degenerative change. No effusion. Bone marrow edema is otherwise on remarkable with no fracture seen. Tendons: Extensor tendons of the ankle are unremarkable. There is tendinosis of the peroneal tendons. Flexor tendons are within normal limits. The Achilles and plantar tendons are unremarkable. Ligaments: Intrinsic ligaments of the ankle are within normal limits. There is thickening of the posterior lateral talofibular ligament. The anterior talofibular ligament is intact. Deltoid tendon is within normal limits. Soft tissues: Diffuse soft tissue edema noted. No mass or abnormal fluid collection demonstrated.. MRI/Lower Ext Joint Only (Routine) IMPRESSION: Thickened posterior lateral talofibular ligament. Tendinosis of the peroneus tendons. No tear. Extensive degenerative changes throughout the tarsal bones worse in the tarsome tatarsal joint. Diffuse soft tissue edema. Reading Location: [id number]
== END | disposition home or self-care (01) ==
LOC: MRI 13:32
PROVIDERS: PCP Physician Assistant; Referring Provider Podiatrist; Visit Provider Podiatrist
DX: M19.071 Primary osteoarthritis, right ankle and foot (principal); E11.42 Type 2 diabetes mellitus with diabetic polyneuropathy; M79.671 Pain in right foot; M10.471 Other secondary gout, right ankle and foot
CPT/HCPCS: 73718; 73721